=== PATIENT | male | born 1945 | race Caucasian/White ===

== ENCOUNTER 2023-06-10 17:45 | Emergency (ER) | payer MEDICARE, OTHER, SELFPAY ==
[2023-06-10 17:54] VITALS: BP 190/122; PULSE 96; RESP 20; TEMP 36.7; O2SAT 97; BMI 21.5
--- NOTE | 2023-06-10 18:00 | CT_ITS ---
The [address] [address] Patient Name: DENIZ GÓMEZ MRN: [id number] date: 1945 Sex: M Assigned Patient Location: ED.MAIN Current Patient Location: ED.MAIN Accession/Order Number: [id number] Exam Date: 06/10/2023 18:56 Report Date: 06/10/2023 19:26 At the request of: ARIK JACKSON Procedure: CT head/brain wo con EXAM: CT head/brain wo con HISTORY: fall, laceration right forehead COMPARISON: CT brain 10/06/2022 TECHNIQUE: Axial CT scans through the head were obtained without IV contrast administration. Dose reduction techniques were achieved by using: automated exposure control and/or adjustment of mA and /or kV according to patient size and/or use of iterative reconstruction technique. FINDINGS: There is no evidence of acute intracranial hemorrhage or abnormal extra-axial fluid collection. No mass effect or midline shift is seen. There is no evidence of large acute territorial infarction. There is no hydrocephalus. There is a chronic lacunar infarct in right basal ganglia. Mild enlarged ventricles and sulci, consistent with age appropriate cerebral atrophy. Patchy areas of low-attenuation are present in supratentorial white matter, likely represents chronic microvascular ischemia. There are atherosclerotic calcifications of anterior and posterior circulations. To the limit of CT, the posterior fossa appears unremarkable. No definite acute fracture is identified. Right supraorbital mild soft tissue swelling is seen. The visualized orbits show no abnormal mass. The visualized paranasal sinuses show no air-fluid level. There are mild partial opacifications of left mastoid air cells, stable since 10/06/2022. There are cerumen in bilateral external auditory canals, left greater than right. CT/CT head/brain wo con IMPRESSION: No CT evidence of acute intracranial abnormality. No acute fracture. Right supraorbital mild soft tissue swelling. Chronic lacunar infarct in right basal ganglia. Chronic microvascular ischemia and involutional changes. Partial opacifications of left mastoid air cells, stable since 10/06/2022, suggestive of mild effusion. Electronically authenticated by: MARCO UNLU Date: 06/10/2023 19:26
--- NOTE | 2023-06-10 18:01 | ED.WOUNDLAC1 ---
HPI - Wound/Laceration General Chief Complaint: Wound/Laceration Stated Complaint: FACIAL LACERATIONS FALL Time Seen by Provider: 06/10/23 17:54 Source: patient Mode of arrival: walk-in Limitations: no limitations History of Present Illness HPI narrative: 78-year-old male presents for laceration to his right eyebrow area. He was mowing the grass and somehow he tripped and hit his head on the corner of the garage door. No LOC and he doesn't complain of neck pain. No other injury was sustained and it happened just before coming into the emergency department. He was brought in by a friend. Related Data Allergies Allergy/AdvReac Type Severity Reaction Status Date / Time No Known Drug Allergies Allergy Verified 06/10/23 17:58 Review of Systems ROS Narrative A ten point review of systems is negative except as noted above. Exam Narrative Exam Narrative: Nurses note and vital signs reviewed and patient is not hypoxic. General: The patient appears well and in no apparent distress. Patient is resting comfortably on cart. Skin: Warm, dry, no pallor noted. There is no rash noted. Head: Normocephalic, irregular 2 cm laceration noted at the right eyebrow. No active bleeding. Eye: Normal conjunctiva, no drainage, EOMI. PERRL Ears, Nose, Mouth, and Throat: oral mucosa is moist. Nares patent. Cardiovascular: Regular Rate and Rhythm Respiratory: Patient is in no distress, no accessory muscle use, lungs are clear to auscultation, no wheezing, rales or rhonchi Back: non-tender, cervical spine nontender GI: soft and nontender Musculoskeletal: The patient has no evidence of calf tenderness, no pitting edema, symmetrical pulses noted bilaterally Neurological: A&O, normal speech Psychiatric: Cooperative Constitutional Vital Signs, click to edit/add: Last Vital Signs Temp 98.1 F 06/10/23 17:54 Pulse 96 H 06/10/23 17:54 Resp 20 06/10/23 17:54 BP 190/122 H 06/10/23 17:54 Pulse Ox 97 06/10/23 17:54 O2 Del Method Room Air 06/10/23 17:54 Course Vital Signs Vital signs: Vital Signs Temperature 98.1 F 06/10/23 17:54 Pulse Rate 96 H 06/10/23 17:54 Respiratory Rate 20 06/10/23 17:54 Blood Pressure 190/122 H 06/10/23 17:54 Pulse Oximetry 97 06/10/23 17:54 Oxygen Delivery Method Room Air 06/10/23 17:54 Temperature 98.1 F 06/10/23 17:54 Pulse Rate 96 H 06/10/23 17:54 Respiratory Rate 20 06/10/23 17:54 Blood Pressure 190/122 H 06/10/23 17:54 Pulse Oximetry 97 06/10/23 17:54 Oxygen Delivery Method Room Air 06/10/23 17:54 MDM - Wound/Laceration MDM Narrative Medical decision making narrative: the wound has been closed with sutures and CT brain is pending. The patient signout to Dr. Lynch. Differential Diagnosis Differential diagnosis: Likely laceration and other (intracranial hemorrhage) Discharge Plan Discharge Chief Complaint: Wound/Laceration Clinical Impression: Laceration Patient Disposition: Still a Patient Referrals: Physician,Non-Staff, MD [Primary Care Provider] - 1 week Procedures ED Laceration Laceration Laceration 1: Site: face Side (if applicable): right Size (cm): 2 Description: linear Depth: simple, single layer Anesthetic used: lidocaine 1% Anesthesia technique: local infiltration Amount (ml): 5 Pre-repair: wound explored and deep structures intact Skin layer closed with: other (Prolene) Size (cm): 5-0 Number of sutures: 5 Technique: simple, interrupted Additional comments: he tolerated the procedure well, no complications.
[2023-06-10 19:28] VITALS: BP 158/90; PULSE 88; O2SAT 96
--- NOTE | 2023-06-10 19:40 | ED_ITS ---
HPI - General Adult General Chief complaint: Wound/Laceration Stated complaint: FACIAL LACERATIONS FALL Time Seen by Provider: 06/10/23 17:54 Source: patient Mode of arrival: walk-in Limitations: no limitations History of Present Illness HPI narrative: Patient was signed out to me at shift change pending CT scan of the brain. He presents for evaluation after falling and striking his forehead against the garage while mowing the lawn. His neuro exam was normal. The forehead laceration had been closed by Dr. Jackson prior to sign out. CT scan of the brain was reviewed and is negative for acute findings. Patient was seen and evaluated by myself. He is neurologically intact. 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 She was given head trauma instructions standing. Related Data Allergies Allergy/AdvReac Type Severity Reaction Status Date / Time No Known Drug Allergies Allergy Verified 06/10/23 17:58 Exam Constitutional Vital Signs, click to edit/add: Last Vital Signs Temp 98.1 F 06/10/23 17:54 Pulse 88 06/10/23 19:28 Resp 20 06/10/23 17:54 BP 158/90 H 06/10/23 19:28 Pulse Ox 96 06/10/23 19:28 O2 Del Method Room Air 06/10/23 17:54 Course Vital Signs Vital signs: Vital Signs Temperature 98.1 F 06/10/23 17:54 Pulse Rate 96 H 06/10/23 17:54 Respiratory Rate 20 06/10/23 17:54 Blood Pressure 190/122 H 06/10/23 17:54 Pulse Oximetry 97 06/10/23 17:54 Oxygen Delivery Method Room Air 06/10/23 17:54 Temperature 98.1 F 06/10/23 17:54 Pulse Rate 88 06/10/23 19:28 Respiratory Rate 20 06/10/23 17:54 Blood Pressure 158/90 H 06/10/23 19:28 Pulse Oximetry 96 06/10/23 19:28 Oxygen Delivery Method Room Air 06/10/23 17:54 Medical Decision Making MDM Narrative Medical decision making narrative: The [address] [address] [address] Scan Report Signed Patient: DENIZ GÓMEZ MR#: [id number] : 1945 Acct:[id number] Age/Sex: 78 / M ADM Date: 06/10/23 Loc: ER Attending Dr: Ordering Physician: Jonah Jackson Date of Service: 06/10/23 Procedure(s): CT head/brain wo con Accession Number(s): [id number] cc: Physician,Non-Staff M.Marco~ The [place] [id number] Patient Name: DENIZ GÓMEZ MRN: [facility]:[id number] date: 1945 Sex: M Assigned Patient Location: ED.MAIN Current Patient Location: ED.MAIN Accession/Order Number: [id number] Exam Date: 06/10/2023 18:56 Report Date: 06/10/2023 19:26 At the request of: ARIK JACKSON Procedure: CT head/brain wo con EXAM: CT head/brain wo con HISTORY: fall, laceration right forehead COMPARISON: CT brain 10/06/2022 TECHNIQUE: Axial CT scans through the head were obtained without IV contrast administration. Dose reduction techniques were achieved by using: automated exposure control and/or adjustment of mA and /or kV according to patient size and/or use of iterative reconstruction technique. FINDINGS: There is no evidence of acute intracranial hemorrhage or abnormal extra-axial fluid collection. No mass effect or midline shift is seen. There is no evidence of large acute territorial infarction. There is no hydrocephalus. There is a chronic lacunar infarct in right basal ganglia. Mild enlarged ventricles and sulci, consistent with age appropriate cerebral atrophy. Patchy areas of low-attenuation are present in supratentorial white matter, likely represents chronic microvascular ischemia. There are atherosclerotic calcifications of anterior and posterior circulations. To the limit of CT, the posterior fossa appears unremarkable. No definite acute fracture is identified. Right supraorbital mild soft tissue swelling is seen. The visualized orbits show no abnormal mass. The visualized paranasal sinuses show no air-fluid level. There are mild partial opacifications of left mastoid air cells, stable since 10/06/2022. There are cerumen in bilateral external auditory canals, left greater than right. CT/CT head/brain wo con IMPRESSION: No CT evidence of acute intracranial abnormality. No acute fracture. Right supraorbital mild soft tissue swelling. Chronic lacunar infarct in right basal ganglia. Chronic microvascular ischemia and involutional changes. Partial opacifications of left mastoid air cells, stable since 10/06/2022, suggestive of mild effusion. Electronically authenticated by: MARCO HINDS Date: 06/10/2023 19:26 Discharge Plan Discharge Chief Complaint: Wound/Laceration Clinical Impression: Laceration, Closed head injury, Abrasion Patient Disposition: Home, Self-Care Time of Disposition Decision: 19:39 Instructions: Head Injury (ED) Stand Alone Forms: Portal Instructions Referrals: Physician,Non-Staff, MD [Primary Care Provider] - 1 week Discharge Date/Time: 06/10/23 20:07
== END 2023-06-10 20:07 | disposition home or self-care (01) ==
PROVIDERS: Emergency Provider Emergency Medicine
DX: S01.111A Laceration without foreign body of right eyelid and periocular area, initial encounter (principal); S09.8XXA Other specified injuries of head, initial encounter; W01.198A Fall on same level from slipping, tripping and stumbling with subsequent striking against other object, initial encounter; T14.8XXA Other injury of unspecified body region, initial encounter
CPT/HCPCS: 12011; 70450; 99284

== ENCOUNTER 2023-07-04 12:36 | Outpatient (OUT) | payer MEDICARE, OTHER, SELFPAY ==
[2023-07-04 13:46] LABS: Creatinine Urine Random 75.19 mg/dL (20.00-300.00); Protein Creatinine Ratio Urine 0.82; Total Protein Urine Random 61.6 mg/dL (<=11.9)
[2023-07-04 13:58] LABS: Alanine Aminotransferase 23 U/L (16-63); Albumin Globulin Ratio 0.8; Albumin Level 3.7 g/dL (3.4-5.0); Alkaline Phosphatase 59 U/L (46-116); Anion Gap 11.3; Aspartate Amino Transferase 20 U/L (15-37); BUN Creatinine Ratio 14.5; Bilirubin Total 0.5 mg/dL (0.2-1.0); Calcium 9.2 mg/dL (8.5-10.1); Chloride 101 mmol/L (98-107); Estimated GFR (African America 34 (>=60); Estimated GFR (Non-African Ame 28 (>=60); Globulin 4.5 g/dL; Glucose 148 mg/dL (74-106); Potassium 3.3 mmol/L (3.5-5.1); Sodium 140 mmol/L (136-145); Total Protein 8.2 g/dL (6.4-8.2)
[2023-07-04 14:50] LABS: Basophils Percent Auto 0.7 % (0.2-2.0); Eosinophils Absolute Auto 0.1 10^3/uL (0.0-0.7); Eosinophils Percent Auto 1.8 % (0.9-7.0); Hematocrit 39.5 % (42.0-54.0); Hemoglobin 12.7 g/dL (14.0-18.0); Immature Granulocytes Abs Auto 0.01 10^3/uL (0.00-0.03); Immature Granulocytes Pct Auto 0.2 % (0.0-0.5); Lymphocytes Percent Auto 35.7 % (20.5-60.0); Mean Corpuscular HGB Conc 32.2 g/dL (29.9-35.2); Mean Corpuscular Hemoglobin 30.2 pg (25.9-34.0); Mean Corpuscular Volume 93.8 fL (80.0-94.0); Mean Platelet Volume 11.4 fL (9.5-13.5); Monocytes Absolute Auto 0.4 10^3/uL (0.3-0.8); Monocytes Percent Auto 6.2 % (1.7-12.0); Neutrophils Absolute Auto 3.1 10^3/uL (1.4-6.5); Neutrophils Percent Auto 55.4 % (43.0-75.0); Platelet Count 236 10^3/uL (150-450); Red Blood Count 4.21 10^6/uL (4.70-6.10); Red Cell Distribution Width 14.1 % (11.0-15.0); White Blood Count 5.7 10^3/uL (4.0-11.0)
[2023-07-04 15:47] LABS: Prostate Specific Antigen Scrn 3.74 ng/mL (<=4.00)
[2023-07-04 16:23] LABS: Bilirubin Urine NEGATIVE (NEGATIVE); Blood Urine NEGATIVE (NEGATIVE); Clarity Urine CLEAR (CLEAR); Color Urine LT. YELLOW (YELLOW); Glucose Urine UA NEGATIVE (NEGATIVE); Ketones Urine NEGATIVE (NEGATIVE); Leukocyte Esterase Urine NEGATIVE (NEGATIVE); Nitrite Urine NEGATIVE (NEGATIVE); Protein Urine 30 mg/dL (NEG/TRACE); Specific Gravity Urine 1.015 (1.005-1.025); Urobilinogen Urine 0.2 EU/dL (0.2-1.0); pH Urine 6.5 (5.0-9.0)
[2023-07-04 16:35] LABS: Bacteria Urine NONE SEEN #/HPF (NONE SEEN); Cast Seen? NONE SEEN #/LPF (NONE SEEN); Crystals Seen? None Seen #/HPF (None Seen); Mucus Urine NONE SEEN (NONE SEEN); RBC Urine NONE SEEN #/HPF (0-2); Squamous Epithelial Cell Urine NONE SEEN #/LPF (NONE/RARE); WBC Urine 0-2 #/HPF (NONE SEEN)
== END 2023-07-04 12:37 | disposition home or self-care (01) ==
LOC: LAB 12:38
PROVIDERS: PCP Internal Medicine; Visit Provider Internal Medicine
DX: I12.9 Hypertensive chronic kidney disease with stage 1 through stage 4 chronic kidney disease, or unspecified chronic kidney disease (principal); N18.31 Chronic kidney disease, stage 3a; R53.83 Other fatigue; R39.11 Hesitancy of micturition; Z12.5 Encounter for screening for malignant neoplasm of prostate
CPT/HCPCS: 36415; 80053; 81001; 82570; 84156; 85025; G0103

== ENCOUNTER 2023-10-15 09:32 | Outpatient (OUT) | payer MEDICARE, OTHER, SELFPAY ==
--- NOTE | 2023-10-15 09:36 | US_ITS ---
The [address] [address] Patient Name: DENIZ GÓMEZ MRN: [id number] date: 1945 Sex: M Assigned Patient Location: US Current Patient Location: Accession/Order Number: [id number] Exam Date: 10/15/2023 09:45 Report Date: 10/16/2023 10:19 At the request of: BLANCHE WILSON Procedure: US renal bladder EXAM: US renal bladder HISTORY: Primary Hypertension I10 COMPARISON: None. TECHNIQUE: Ultrasound of the kidneys and bladder. FINDINGS: The right kidney measures 6.7 x 3.8 x 3.2 cm and contains a cyst in the inferior pole measuring up to 1.0 cm. The left kidney measures 9.4 x 2.6 x 4.3 cm. There is no hydronephrosis or renal calculus. The urinary bladder appears normal. Prevoid volume was 474.4 cc. Post volume was 363.2 cc. US/US renal bladder IMPRESSION: Atrophic right kidney with containing a cyst. Urinary retention.. Electronically authenticated by: KENN MORE Date: 10/16/2023 10:19
== END 2023-10-15 09:33 | disposition home or self-care (01) ==
LOC: US 09:33
PROVIDERS: PCP Internal Medicine; Visit Provider Internal Medicine
DX: N18.32 Chronic kidney disease, stage 3b (principal); I10 Essential (primary) hypertension; R33.9 Retention of urine, unspecified; N28.1 Cyst of kidney, acquired
CPT/HCPCS: 76770

== ENCOUNTER 2024-08-18 10:37 | Outpatient (OUT) | payer MEDICARE, OTHER, SELFPAY ==
--- OUTSIDE RECORDS SUMMARY | 2024-08-18 10:42 | XMS_ITS | CCD ---
Author Organization [facility] Care Team Providers Care Ic Design Engineer Name Role Phone Unavailable Primary Care Provider Unavailabl ROHITH Zamorano Attending Unavailable RUSTY SANDOVAL Admitting Unavailable SELF, REFERRED Referring Unavailable SELF, REFERRED Primary Care Unavailable OR Procedure Practitioner Unavailab GHADA Zacarias Surgeon Unavailable ROHITH SALAS Surgeon Unavailable OR Procedure Practitioner Unavailab le MARJORIE, JEFFRY S Referring Unavailable MARJORIE, JEFFRY S Referring Unavailable MARJORIE, JEFFRY S Referring Unavailable MARJORIE, JEFFRY S Referring Unavailable MARJORIE, JEFFRY S Referring Unavailable MARJORIE, JEFFRY S Referring Unavailable MARJORIE, JEFFRY S Referring Unavailable MARJORIE, JEFFRY S Referring Unavailable DR SOHAM FERNANDO Primary Care Unavailable ALLAN HANEY Admitting Unavailable ALLAN HANEY Attending Unavailable ALFREDA, DR DIOR Mosher Consulting Unavailable ALLAN HANEY Consulting Unavailable JASPAL GARCÍA Consulting Unavailable JANICE WOODS Consulting Unavailable Floyd Rubi Unavailable Thu Figueroa Unavailable DO Floyd Rubi Attending Provider NO FAMILY, PHYSICIAN Primary Care Provider Unava ilable Floyd Rubi Attending Unavailable Floyd Rubi Admitting Unavailable NO FAMILY, PHYSICIAN Primary Care Unavailable Bonita Ni Unavailable Soham Fernando Unavailable NONE, XXXX Primary Care Physician Unavailab ANDREA Ferrera Attending Unavailab ceasar Allergies Allergy Classification Reported Allergen(s) Allergy Type Date of Onset Reaction(s) Facility (1 source) No Known Medication Allergies; Translations: [No Known Medication Allergies] Propensity to adverse reactions (disorder) [facility] Repository Medications Current Medications Medication Drug Class(es) Dates Sig (Normalized) Sig (Original) Centrum (2 sources) Start: 11-15-2020 Centrum Oral, Daily Start Date: 11/15/20 Status: Ordered ciprofloxacin 500 mg oral tablet (1 source) Quinolone Antimicrobial Start: 12-10-2023 Cipro 500 mg Tab See Instructions, Take 1 tab day prior to procedure and 1 tab day of procdure - afterwards, # 2 tab(s), Refills(s) 0, Pharmacy: [facility] [id number], 177, cm, 12/03/23 15:04:00 EST, Height/Length Dosing, 66.5, kg, 12/03/23 15:04:00 EST, Weight Dosing Start Date: 12/10/23 Status: Ordered cloNIDine hydrochloride 0.1 mg oral tablet (10 sources) Central alpha-2 Adrenergic Agonist Start: 05-04-2024 take 0.1 mg by mouth twice daily Clonidine Hcl Active 0.1 MG PO Twice daily 60 May 04, 2024 1:51pm Start: 12-03-2023 End: 05-04-2024 take 0.1 mg by mouth once daily at bedtime Clonidine Hcl Discontinued 0.1 MG PO Daily at bedtime February 03, 2024 12:00am May 04, 2024 1:51pm Start: 10-10-2023 take 1 tablet by key th every twelve hours cloNIDine HCl 0.1 MG 1 tablet Orally bid for 30 days Oct, Active docusate sodium 50 mg oral capsule (10 sources) Start: 11-17-2020 Docusate Sodiu m 50MG Docusate Sodium( 50MG Oral 2 three times daily ) Active -Hx Entry Oral three times daily for 0 *Pick strength-form from [employer] for eRX* Nov, Not-Taking/PRN ferrous fumarate 325 mg oral tablet (2 sources) Start: 11-15-2020 take 1 tablet by mouth once daily ferrous fumarate 325 mg oral tablet 325 mg = 1 tab(s), Oral, Daily Start Date: 11/15/20 Status: Ordered tamsulosin hydrochloride 0.4 mg oral capsule (15 sources) alpha-Adrenerg ic Jasen Start: 12-03-2023 End: 11-27-2024 take 2 capsules by mouth once daily tamsulosin 0.4 mg Cap 0.8 mg = 2 cap(s), Oral, Daily, X 90 day(s), # 180 cap(s), Refills(s) 3, Pharmacy: [facility]/pharmacy #[id number], 177, cm, 12/03/23 15:04:00 EST, Height/Length Dosing, 66.5, kg, 12/03/23 15:04:00 EST, Weight Dosing Start Date: 12/03/23 Stop Date: 11/27/24 Status: Ordered Start: 12-04-2020 End: 05-04-2024 take 0.4 mg by mouth once daily at bedtime Tamsulosin Active 0.4 MG PO Daily at bedtime May 04, 2024 1:50pm Completed/Discontinued Medications Medication Drug Class(es) Dates Sig (Normalized) Sig (Original) Acetaminophen (12 sources) Tylenol Not-Taki ng/PRN Tylenol Not-Taki ng Tylenol Active amLODIPine 10 mg oral tablet (17 sources) Dihydropyridine Calcium Channel Jasen Start: 12-04-2020 End: 05-04-2024 take 10 mg by mouth once daily Amlodipine Discontinued 10 MG PO Daily 2024 12:00am January 21, 2024 10:05pm Start: 11-15-2020 take 1 tablet by key th once daily amLODIPine 5 mg Tab 5 mg = 1 tab(s), Oral, Daily Start Date: 11/15/20 Status: Ordered Ferrex 150 150MG (10 sources) Start: 12-29-2020 Ferrex 150 150 MG Ferrex 150 150MG, 1 (one) Capsule daily # 30, 12/29/2020, Ref. x2. Active Oral daily for 30 *Pick strength-form from [employer] for eRX* Dec, Not-Taking/PRN Start: 12-29-2020 Ferrex 150 150 MG Ferrex 150 150MG, 1 (one) Capsule daily # 30, 12/29/2020, Ref. x2. Active Oral daily for 30 *Pick strength-form from [employer] for eRX* Dec, Not-Taking sodium bicarbonate 325 mg oral tablet (10 sources) Start: 12-04-2020 take 1 tablet by mouth twice daily as needed Sodium Bicarbonate 325MG Sodium Bicarbonate 325MG, 2 (two) Tablet two times daily # 120, 12/04/2020, Ref. x11. Active Oral two times daily for 30 *Pick strength-form from [employer] for eRX* Dec, Not-Taking/PRN Problems Active Problems Problem Classification Problem Date Documented Date Episodic/Chronic Acute and unspecified renal failure (2 sources) Acute renal failure syndrome 01-18-2021 Episodic Acute and unspecified renal failure (7 sources) Acute injury of kidney; Translations: [TJ (acute kidney injury)] Onset: 09-10-2020 09-10-2020 Acute posthemorrhagic anemia (10 sources) Acute posthemorrhagic anemia; Translations: [Acute posthemorrhagic anemia] Episodic Chronic kidney disease (20 sources) Chronic kidney disease stage 4; Translations: [Chronic kidney disease, stage 4 (severe)] 2024 Chronic Chronic obstructive pulmonary disease and bronchiectasis (17 sources) Simple chronic bronchitis; Translations: [Simple chronic bronchitis] Chronic Deficiency and other anemia (2 sources) Anemia 11-15-2020 Episodic Disorders of teeth and jaw (1 source) Periapical abscess without sinus; Translations: [PERIAPICAL ABSCESS WITHOUT SINUS] Onset: 10-09-2022 Episodic E Codes: Fall (1 source) Fall on same level from slipping, tripping and stumbling with subsequent striking against other object, initial encounter; Translations: [FALL SAME LVL SLIP STRK OTH OBJ INT] Onset: 10-09-2022 Episodic Essential hypertension (20 sources) Essential hypertension; Translations: [Essential (primary) hypertension] Chronic Fracture of upper limb (2 sources) Unspecified fracture of the lower end of right radius, initial encounter for closed fracture; Translations: [UNS FX LOW RT RADIUS INIT CLOS FX] Onset: 10-09-2022 Episodic Genitourinary symptoms and ill-defined conditions (20 sources) Delay when starting to pass urine; Translations: [Hesitancy of micturition] Onset: 12-03-2023 Episodic Hyperplasia of prostate (20 sources) Lower urinary tract symptoms due to benign prostatic hypertrophy; Translations: [Benign prostatic hyperplasia with lower urinary tract symptoms] Onset: 12-03-2023 Chronic Immunizations and screening for infectious disease (1 source) Encounter for immunization; Translations: [ENCOUNTER FOR IMMUNIZATION] Onset: 10-09-2022 Episodic Intracranial injury (11 sources) Concussion without loss of consciousness, initial encounter; Translations: [Concussion with no loss of consciousness] Onset: 10-09-2022 Episodic Malaise and fatigue (1 source) Other fatigue Episodic Open wounds of head; neck; and trunk (4 sources) Laceration without foreign body of lip, initial encounter; Translations: [LACERATION W/O FB LIP INITIAL ENC] Onset: 10-06-2022 Episodic Osteoarthritis (13 sources) Osteoarthritis of joint of right wrist; Translations: [Primary osteoarthritis, right wrist] Chronic Other aftercare (1 source) Other fpc (current) drug therapy; Translations: [OTH ROTOR PLATE WASHER CURRENT DRUG THERAPY] Onset: 10-09-2022 Episodic Other aftercare (2 sources) Encounter for removal of sutures Episodic Other circulatory disease (1 source) Elevated blood-pressure reading, without diagnosis of hypertension Episodic Other diseases of kidney and ureters (1 source) Acquired renal cyst without neoplastic change; Translations: [Cyst of kidney, acquired] Onset: 12-03-2023 Episodic Other diseases of kidney and ureters (2 sources) Bilateral hydronephrosis 01-18-2021 Episodic Other diseases of kidney and ureters (2 sources) Cyst of kidney 12-03-2023 Episodic Other ear and sense organ disorders (1 source) Impacted cerumen; Translations: [Impacted cerumen, unspecified ear] 02-03-2024 Episodic Other hereditary and degenerative nervous system conditions (11 sources) Impaired cognition; Translations: [Mild cognitive impairment, so stated] 2024 Chronic Other hereditary and degenerative nervous system conditions (6 sources) Mild cognitive impairment, so stated; Translations: [Mild cognitive impairment, so stated] Chronic Other screening for suspected conditions (not mental disorders or infectious disease) (1 source) Encounter for screening for malignant neoplasm of prostate Episodic Screening and history of mental health and substance abuse codes (1 source) Personal history of nicotine dependence; Translations: [PERSONAL HISTORY OF NICOTINE DEPEND] Onset: 10-09-2022 Episodic Substance-related disorders (15 sources) Tobacco dependence in remission; Translations: [Nicotine dependence, cigarettes, in remission] Chronic Superficial injury; contusion (1 source) Contusion of other part of head, initial encounter; Translations: [CONTUS OTH PRT HEAD INITIAL ENCNTR] Onset: 10-09-2022 Episodic Syncope (1 source) Syncope and collapse Episodic Unclassified (1 source) Other fractures of lower end of right radius, subsequent encounter for closed fracture with routine healing; Translations: [Other fractures of lower end of right radius, subsequent encounter for closed fracture with routine healing] Onset: 11-01-2022 Unclassified (2 sources) Finding of sensation of bladder 12-03-2023 Viral infection (10 sources) Disease caused by 2019-nCoV; Translations: [COVID-19] Past or Other Problems Problem Classification Problem Date Documented Da te Episodic/Chronic Chronic kidney disease (4 sources) Chronic kidney disease; Translations: [Stage 3a chronic kidney disease N18.31] Results Test Name Value Interpretation Reference Range Facility Urology Office/Clinic Noteon 12-05-2023 Urology Office/Clinic Note Chief Complaint urinary retention, feeling of incomplete bladder emptying, BPH with LUTS HPI Staff Deniz is a 78 y.o. male here for urinary retention. Previous Dx: acute renal failure, acute urinary retention, bilateral hydronephrosis, BPH w/ elevated PSA, enlarged prostate, urinary retention. No urological procedures. Referred by Soham Fernando. BUN 33.0 & CRE 2.28 done on 07/04/23. Current PSA 3.74 done on 07/04/23. UA done on 07/04/23 was negative. Renal bladder US done on 10/16/23. Pt states he does not know why he is here today and does not remember Dr. Fernando telling him that he needed to be seen in our office. States that he has no urinary issues. Dysuria: no Incomplete bladder emptying: pt states he has no trouble emptying Hematuria: no Frequency: no Urgency: no Nocturia: pt states 1x but caregiver states 3-4x Stream: good steady stream Leaking: no Post void dripping: no Wearing pads/ Depends: no Urge incontinence: no Stress incontinence: no Incontinence without Sensory Awareness: no Abdominal pain: no Flank pain: no Sexual complaints: no History of Present Illness staff HPI reviewed and agree. Review of Systems PHQ Score Initial Depression Screen Score: 0 SCORE no fever, chills, malaise, myalgia. no rash/lesions. no chest pain, palpitations, or SOB. no abdominal pain, nausea, vomiting. no unilateral calf swelling, redness, pain Physical Exam Vitals & Measurements HR: 77(Peripheral) RR: 16 BP: 136/83 HT: 70 in HT: 177 cm WT: 66.5 kg WT: 146.3 lb BMI: 21.23 General: nontoxic, NAD Mouth: moist mucosa Lungs: normal respiratory effort Cardio: regular rate, good distal perfusion Abdomen: nondistended, no suprapubic distention or tenderness, no CVA tenderness Neurologic: Grossly normal Skin: No rashes or suspicious lesions Assessment/Plan Deniz is a 78 yo male re-referred by Dr. Fernando for BPH and urinary retention. Last saw Dr. Levy 04/17/21. Pt here with friend today - takes care of pt's appts/transportation but has IBS and states she may have to cancel if experiencing bothersome sxs. 1. Feeling of incomplete bladder emptying (R39.14: Feeling of incomplete bladder emptying) Hx of urinary retention requiring Bernal placement in the remote past. PVR (cc): 04/17/21 - 229 12/03/23 - 475 Renal fxn 07/04/23 - BUN 33, Cr 2.28 (has CKD, follows w/ nephrology) Bladder/Renal US 10/16/23 [facility] - No hydro or stones. PVR 363mL. Discussed PVRs w/ pt. Advised him PVRs are elevated and indicate bladder dysfunction. This is likely contributing to his worsening kidney function. Educated pt on possible renal failure if no intervention is done. Discussed options such as chronic bernal catheter placement vs CIC. Also discussed cystoscopy evaluation to determine if prostate has regrown since Rezum and uros to assess bladder function. Pt refusing cath or CIC at this time. I did tell him if he changes his mind at any time he can call office. He is willing to proceed w cysto/uros. -Will schedule cystoscopy and urodynamics. The risks and benefits have been discussed. The risks include bleeding, infection, and irritation of the bladder and urinary channel, among others. The patient, after being informed of procedural details and after questions have been answered, wishes to proceed. Full informed consent has been obtained. Will order Local anesthesia. 2. BPH with urinary obstruction (N40.1: Benign prostatic hyperplasia with lower urinary tract symptoms) S/p Rezum 03/08/[address] Levy. IPSS 1, QoL 0. Dr. Fernando started pt on Tamsulosin 0.4mg qd in October 2023. UA today negative for infection. Discussed increasing dosage of Tamsulosin given pt is not emptying well. Pt agrees. PSA 09/11/20 - 7.2 07/04/23 - 3.74 -Increase Tamsulosin 0.4mg qd to bid. New rx sent. 3. Renal cyst (N28.1: Cyst of kidney, acquired) Bladder/Renal US 10/16/23 [facility] - 9.4 x 2.6 x 4.3 cm RIP cyst. -No indication for monitoring given cysts are simple Follow-up With When Contact Information AGNES ROJO PA-C, URL [address] [place] [place] [id number] Additional Instructions: sched cysto/uros Patient Education Urodynamic Testing Cystoscopy Acute Urinary Retention, Male Documentation recorded by the scribclifford Nash accurately reflects the services(s) I performed and decisions made by me. Authenticated by Agnes Rojo PA-C on 12/05/2023 09:19:14. IBrianne, personally scribed for Agnes Rojo PA-C on 12/03/2023 15:49:13. . 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 Normal [facility] Comment on above: Result Comment: Elec tronically Signed By: AGNES ROJO PA-C\.br\Date and Time Signed: 12/05/23 09:19 EST\.br\Electronically Co-Signed By: Brianne Nashbr\Date and Time Co-Signed: 12/03/23 15:50 EST Physician Referralon 024 Physician Referral [id number] TIFF Normal [facility] Screenson 12-04-2023 Screens [id number] IFF Normal [facility] Ambulatory Visit Summaryon 0 12-03-2023 Ambulatory Visit Summary DENIZ GOMEZ:1945 Visit Date:12/03/2023 Ambulatory Visit Instructions Your Diagnosis Feeling of incomplete bladder emptying BPH with urinary obstruction Renal cyst Your Care Team Attending Physician - AGNES ROJO PA-C Primary Care Physician - NONE, XXXX This Is Your Medications List tamsulosin (tamsulosin 0.4 mg Cap) Contact prescribing physician if questions or concerns amlodipine (amLODIPine 5 mg Tab) clonidine (cloNIDine 0.1 mg tab) ferrous fumarate (ferrous fumarate 325 mg oral tablet) multivitamin with minerals (Centrum) Procedures Performed Transurethral water vapor ablation of prostate (03/08/2021), CE - Cataract extraction. Discharge Vitals Heart Rate (Peripheral) 77 Respiratory Rate 16 Blood Pressure 136/83 Height 177 cm Height 70 in Weight 66.5 kg Weight 146.3 lb BMI 21.23 What to do next You Need to Schedule the Following Appointments Follow Up with AGNES ROJO PA-C, DAMI When: Comments: sched cysto/uros Where: [address] [place] [address] [phone] Medications What How Much When Instructions Changed tamsulosin (tamsulosin 0.4 mg Cap) 2 Capsules By Mouth Every day Duration: 90 Days Pickup at [facility]/pharmacy #[id number] Unchanged amlodipine (amLODIPine 5 mg Tab) 1 Tablets By Mouth Every day Contact prescribing physician if questions or concerns Unchanged clonidine (cloNIDine 0.1 mg tab) Contact prescribing physician if questions or concerns Unchanged ferrous fumarate (ferrous fumarate 325 mg oral tablet) 1 Tablets By Mouth Every day Contact prescribing physician if questions or concerns Unchanged multivitamin with minerals (Centrum) By Mouth Every day Contact prescribing physician if questions or concerns Pharmacy Information [facility]/pharmacy #[id number]: [address], [place] [phone] Allergies No Known Medication Allergies Problems Ongoing - Any problem that you are currently receiving treatment for. Acute renal failure Acute urinary retention Anemia Bilateral hydronephrosis BPH with elevated PSA BPH with urinary obstruction Enlarged prostate Feeling of incomplete bladder emptying Hypertension Renal cyst Urinary retention Patient Survey You may receive a survey via text or e-mail asking about your office visit. Please share your experience with us by completing your survey. We appreciate your feedback and thank you for choosing us for your care. Education Materials Urodynamic Testing Urodynamic tests are done to determine how well your lower urinary tract is working. The lower urinary tract includes your bladder and the part of your body that drains urine from the bladder (urethra). When your kidneys filter your blood, urine is stored in your bladder until you feel the urge to urinate. Urination requires coordination between the nerves and muscles of your bladder and urethra. When your lower urinary tract is working well, you should be able to: ? Start urinating when your bladder is full. ? Empty your bladder completely. ? Control the flow of your urine. Why do I need urodynamic testing? You may need urodynamic testing to help find the cause of any of these problems: ? Leaking urine (incontinence). ? Problems starting or stopping your urine flow. ? Frequent or painful urination. ? Frequent urinary tract infections. ? Being unable to empty your bladder completely. ? Having strong urges to pass urine (urgency). ? Having a weak flow of urine. What are the risks? Generally, these tests are safe. However, some of the tests have risks, including: ? Discomfort. ? Frequent urge to urinate. ? Bleeding. ? Infection. ? Allergic reactions to medicines or dyes (contrast material). What happens before the test? ? Ask your health care provider about changing or stopping your regular medicines. This is especially important if you are taking diabetes medicines or blood thinners. ? You may be asked to avoid urinating before coming to the test so that you arrive with a full bladder. ? Tell a health care provider about: ? Any allergies you have. ? All medicines you are taking, including vitamins, herbs, eye drops, creams, and [id number] medicines. ? Whether you are or may be . What happens during the test? You may have various urodynamic tests. The tests may be done separately or may all be done during one visit. You may be given an antibiotic medicine before or after testing to help prevent infection. The types of tests that may be done include: Uroflowmetry This test measures how much urine you pass and how long it takes to pass. ? You will urinate into a certain type of toilet or device (flowmeter). ? The device will measure the volume and the time of your urine flow. ? These measurements will be sent to a computer that create (more content not included)... Normal [facility] Patient Educationon 12-03-19 Patient Education Urology Urodynamic Testing Urodynamic tests are done to determine how well your lower urinary tract is working. The lower urinary tract includes your bladder and the part of your body that drains urine from the bladder (urethra). When your kidneys filter your blood, urine is stored in your bladder until you feel the urge to urinate. Urination requires coordination between the nerves and muscles of your bladder and urethra. When your lower urinary tract is working well, you should be able to: ? Start urinating when your bladder is full. ? Empty your bladder completely. ? Control the flow of your urine. Why do I need urodynamic testing? You may need urodynamic testing to help find the cause of any of these problems: ? Leaking urine (incontinence). ? Problems starting or stopping your urine flow. ? Frequent or painful urination. ? Frequent urinary tract infections. ? Being unable to empty your bladder completely. ? Having strong urges to pass urine (urgency). ? Having a weak flow of urine. What are the risks? Generally, these tests are safe. However, some of the tests have risks, including: ? Discomfort. ? Frequent urge to urinate. ? Bleeding. ? Infection. ? Allergic reactions to medicines or dyes (contrast material). What happens before the test? ? Ask your health care provider about changing or stopping your regular medicines. This is especially important if you are taking diabetes medicines or blood thinners. ? You may be asked to avoid urinating before coming to the test so that you arrive with a full bladder. ? Tell a health care provider about: ? Any allergies you have. ? All medicines you are taking, including vitamins, herbs, eye drops, creams, and clgd-rxr-[id number] medicines. ? Whether you are or may be . What happens during the test? You may have various urodynamic tests. The tests may be done separately or may all be done during one visit. You may be given an antibiotic medicine before or after testing to help prevent infection. The types of tests that may be done include: Uroflowmetry This test measures how much urine you pass and how long it takes to pass. ? You will urinate into a certain type of toilet or device (flowmeter). ? The device will measure the volume and the time of your urine flow. ? These measurements will be sent to a computer that creates a graph of your urine flow. Postvoid residual measurement This test measures how much urine is left in your bladder after you urinate. ? The test may be done with ultrasound. In this method, sound waves and a computer will be used to create an image of your bladder. ? The test can also be done by inserting a thin, flexible tube (catheter) into your bladder after you urinate. The remaining urine will be removed through the catheter so it can be measured. ? Remaining urine will be measured in milliliters (mL). If you have more than 100 mL left in your bladder after you urinate, your bladder is not emptying as it should. Cystometric testing This test uses a type of bladder catheter that can measure pressure. ? You may be given a medicine to numb the area (local anesthetic). ? The area around the opening of your urethra will be cleaned. ? A urinary catheter will be passed through your urethra into your bladder and used to empty your bladder completely. ? A measuring catheter will be placed, and your bladder will be filled with warm, germ-free (sterile) water. ? Pressure measurements will be taken: ? As your bladder fills. ? When you feel the need to urinate. ? As your bladder is emptied. ? You may be asked to cough or bear down to check for leakage. ? In some cases, your bladder may be filled with a material that shows up on X-rays (contrast material) so that X-ray pictures can be taken during the test. Electromyogram This test measures the electrical activity of the nerves and muscles of your bladder and the opening of your urethra. ? Sticky patches (electrodes) will be placed near your rectum and urethra to measure electrical activity. ? The measurements will show how well your nerves are communicating with your muscles. What can I expect after the test? ? You should be able to go home right away and do your usual activities. ? You may be told to drink a glass of water every 30 minutes for the first 2 hours after testing. ? Taking a warm bath or using warm, wet cloths (warm compresses) may relieve any discomfort near your urethra. What do the results mean? Talk with your health care provider about what your results mean. Some common causes for abnormal results from urodynamic tests include: ? Enlarged prostate in men. ? Overactive bladder. ? Urinary tract infection. ? Nervous system diseases. ? Spinal cord damage. Questions to ask your health care provider Ask your health care provider, or the department that is doing the test: ? When will my results be (more content not included)... Normal [facility] Comprehensive Metabolic Pane angeline 07-04-2023 Albumin [Mass/Vol] 3.275589 g/dL Normal 3.4-5.0 g/dL [employer] Other ALP [Catalytic activity/Vol] 59 U/L Normal 46-116 U/L [employer] Other ALT [Catalytic activity/Vol] 23 U/L Normal 16-63 U/L [employer] Other Anion gap [Moles/Vol] 11.3 mmol/L No rt [employer] Other AST [Catalytic activity/Vol] 20 U/L Normal 15-37 U/L [employer] Other Bilirubin [Mass/Vol] 0.9072182 mg/dL Normal 0.2- 1.0 mg/dL [employer] Other Calcium [Mass/Vol] 9.8306612 mg/dL Normal 8.5-10 .1 mg/dL [employer] Other Chloride [Moles/Vol] 101 mmol/L Normal 98-107 mmol/L [employer] Other CO2 [Moles/Vol] 31.74429552 mmol/L Normal 21.0-3 2.0 mmol/L [employer] Other Creatinine [Mass/Vol] 2.86492145 mg/dL High 0. 70-1.30 mg/dL [employer] Other Glucose [Mass/Vol] 148 mg/dL High 74-106 mg/dL [employer] Other Potassium [Moles/Vol] 3.17653421 mmol/L Low 3 .5-5.1 mmol/L [employer] Other Protein [Mass/Vol] 8.616102 g/dL Normal 6.4-8.2 g/dL [employer] Other Sodium [Moles/Vol] 140 mmol/L Normal 136-145 mmol/L [employer] Other Urea nitrogen [Mass/Vol] 33.4069209 mg/dL High 7.0-18.0 mg/dL [employer] Other Urea nitrogen/Creatinine [Mass ratio] 14.5 mg/mg [employer] Other Comprehensive Metabolic Panel 4.5 g/dL [employer] Other Comprehensive Metabolic Panel 0.8 [employer] Other Comprehensive Metabolic Panel see note [employer] Other Comprehensive Metabolic Panel 28 Low >=60 [employer] Other Comprehensive Metabolic Panel 34 Low >=60 [employer] Other PSA SCREENINGon 07-04-2023 PSA SCREENING 3.74 ng/mL <=4.00 ng/mL [employer] Other UA RANDOM W/MICROSCOPICon Clarity (U) CLEAR CLEAR [employer] Other Color (U) LT. YELLOW YELLOW [employer] Other Ketones Ql (U) Negative NEGATIVE mg/dL [employer] Other Leukocyte esterase Test strip Ql (U) Negative NEGATIVE [employer] Other pH (U) 6.5 [pH] 5.0-9.0 [employer] Other UA RANDOM W/MICROSCOPIC 0-2 #/HPF Abnormal NONE SEEN #/HPF [employer] Other UA RANDOM W/MICROSCOPIC NONE SEEN #/HPF None Seen #/HPF [employer] Other UA RANDOM W/MICROSCOPIC 1.015 1.005-1.025 [employer] Other UA RANDOM W/MICROSCOPIC 30 mg/dL Abnormal NEG/TRACE mg/dL [employer] Other UA RANDOM W/MICROSCOPIC Negative NEGATIVE [employer] Other UA RANDOM W/MICROSCOPIC 0.2 EU/dL 0.2-1.0 EU/dL [employer] Other UA RANDOM W/MICROSCOPIC NONE SEEN NONE SEEN [employer] Other UA RANDOM W/MICROSCOPIC NONE SEEN #/LPF NONE SEEN #/LPF [employer] Other XR wrist RT 2Von 11-01-2022 XR wrist RT 2V [facility] [place] [address] [place] [address] XRay Report Signed Patient: Deniz Gomez MR#: [id number] : 1945 Acct:[id number] Age/Sex: 77 / M ADM Date: 11/01/22 Loc: [facility] [place] Room: Type: [facility] Attending Dr: Floyd Rubi DO Copies to: Floyd Rubi DO Ordering Provider: Floyd Rubi DO Date of Service: 11/01/22 XR/XR wrist RT 2V: Other closed fracture of distal end of right radius with rou RIGHT WRIST - 2 views CLINICAL HISTORY: Follow-up distal radius fracture COMPARISON: Right wrist 10/06/2022 FINDINGS: Residual deformity is seen involving a presumed healed distal radius fracture. Distal ulna appears grossly intact. Presumed remote triquetral fracture. Degenerative changes involving the CMC joint of the thumb and scaphotrapezial joint similar to the prior study. No focal soft tissue abnormality. XR/XR wrist RT 2V IMPRESSION: NO DEFINITIVE FRACTURE LINE IS SEEN INVOLVING THE DISTAL RADIUS. NO DEFINITE ACUTE BONY PROCESS IS SEEN. Impression dictated by: Jeffry Waterman Jr., D.OLane11/01/2022 1:36 PM Dictation Location: [place] [address] Transcribed By: [facility] 11/01/22 1336 Dictated By: Jeffry Waterman Jr, DO 11/01/22 1330 Signed By: 11/01/22 1336 Normal [facility] XR WRIST RT MIN 3 Von 2021 XR WRIST RT MIN 3 V PLAIN FILM OF WRIST RIGHT HISTORY: wrist pain. TECHNIQUE: 3 views of the wrist submitted for review. COMPARISON: None. FINDINGS: Nondisplaced hairline lucency is seen through the distal shaft of the right radius.. Bone mineralization is decreased. Degenerative changes are present. Soft tissues are diffusely edematous. Joint spaces are degenerative. There is no radiopaque foreign body. IMPRESSION: Nondisplaced hairline fracture seen through the distal shaft of the right radius. Electronically authenticated by: JANICE WOODS Date: 2022-10-06 22:44 Normal [facility] CBC AUTO DIFFon 10-06-2022 BASO # 0.0 103/ul Normal 0.0-0.1 [facility] Comment on above: Performed By: #### C BC #### [facility] [address] [place] [address] Dr. Goran Cortes Basophils/100 WBC (Bld) 0.2 % Normal 0.2-2.0 [facility] Comment on above: Performed By: #### C BC #### [facility] [address] [address] [address] Goran Cortes EO # 0.0 103/ul Normal 0.0-0.7 [facility] Comment on above: Performed By: #### C BC #### [facility] [address] [address] [address] Goran Cortes Eosinophils/100 WBC (Bld) 0.1 % Critically low 0.9-7.0 [facility] Comment on above: Performed By: #### C BC #### [facility] [address] [address] [address] Goran Cortes Erythrocyte distribution width (RBC) [Ratio] 13.8 % Normal 11.0-15.0 [facility] Comment on above: Performed By: #### C BC #### [facility] [address] [place] [address] Dr. Goran Cortes Hematocrit (Bld) [Volume fraction] 38.4 % Critically low 42.0-54.0 [facility] Comment on above: Performed By: #### C BC #### [facility] [address] [address] [address] Goran Cortes Hemoglobin (Bld) [Mass/Vol] 12.8 g/dL Critically low 14.0-18.0 [facility] Comment on above: Performed By: #### C BC #### [facility] [address] [address] [address] Goran Cortes IG # 0.06 10e3/ul Critically high 0.00-0.03 [facility] Comment on above: Performed By: #### C BC #### [facility] [address] [address] [address] Goran Cortes IG % 0.4 % Normal 0.0-0.5 [facility] Comment on above: Performed By: #### C BC #### [facility] [address] [address] [address] Goran Cortes LYMPH # 1.7 103/ul Normal 1.2-3.8 [facility] Comment on above: Performed By: #### C BC #### [facility] [address] [address] [address] Goran Cortes Lymphocytes/100 WBC (Bld) 11.6 % Critically low 20.5-60.0 [facility] Comment on above: Performed By: #### C BC #### [facility] [address] [address] [address] Goran Cortes MANUAL DIFF REQ NO Normal [facility] Comment on above: Performed By: #### C BC #### [facility] [address] [address] [address] Goran Cortes MCH (RBC) [Entitic mass] 31.2 pg Normal 25.9-34.0 [facility] Comment on above: Performed By: #### C BC #### [facility] [address] [address] [address] Goran Cortes MCHC (RBC) [Mass/Vol] 33.3 g/dL Normal 29.9-35.2 [facility] Comment on above: Performed By: #### C BC #### [facility] [address] [address] [address] Goran Cortes MCV (RBC) [Entitic vol] 93.7 fL Normal 80.0-94.0 [facility] Comment on above: Performed By: #### C BC #### [facility] [address] [address] [address] Goran Cortes MONO # 0.9 103/ul Critically high 0.3-0.[address] [facility] Comment on above: Performed By: #### C BC #### [facility] [address] [address] [address] Goran Cortes Monocytes/100 WBC (Bld) 6.2 % Normal 1.7-12.0 [facility] Comment on above: Performed By: #### C BC #### [facility] [address] [place] [address] Dr. Goran Cortes NEUT # 11.9 103/ul Critically high 1.4-6.5 [facility] Comment on above: Performed By: #### C BC #### [facility] [address] [place] [address] Dr. Goran Cortes Neutrophils/100 WBC (Bld) 81.5 % Critically high 43.0-75.0 [facility] Comment on above: Performed By: #### C BC #### [facility] [address] [place] [address] Dr. Goran Cortes Platelet mean volume (Bld) [Entitic vol] 11.2 fL Normal 9.5-13.5 [facility] Comment on above: Performed By: #### C BC #### [facility] [address] [place] [address] Dr. Goran Cortes PLT 212 103/ul Normal 150-450 [facility] Comment on above: Performed By: #### C BC #### [facility] [address] [place] [address] Dr. Goran Cortes RBC 4.10 106/ul Critically low 4.70-6.[address] [facility] Comment on above: Performed By: #### C BC #### [facility] [address] [place], [place] [address] Dr. Goran Cortes WBC 14.6 103/ul Critically high 4.0-11.0 [facility] Comment on above: Performed By: #### C BC #### [facility] [address] [place], [place] [address] CSPINE WO CONon 2 CT CSPINE WO CON EXAMINATION: CT CSPI NE WO CON HISTORY: Pain , fall, facial abrasions COMPARISON: No relevant comparison available. TECHNIQUE: Axial, Coronal, and Sagittal images were created without IV contrast. Dose reduction techniques were achieved by using automated exposure control and/or adjustment of mA and/or kV according to patient size and/or use of iterative reconstruction technique. FINDINGS: VERTEBRAL BODIES: Marked reversal of normal lordotic curvature of lower cervical spine. Grade 1 anterior listhesis of C7 on T1. No fracture.. FACET JOINTS: Multilevel marked degenerative facet arthropathy. No fracture or disruption. CERVICAL DISCS: Moderate narrowing C4-C5, C5-C6. Marked narrowing C6-C7, C7-T1. CENTRAL CANAL: Suspect moderate narrowing throughout the cervical spine, likely marked at C6-C7. No appreciable hemorrhage. PARASPINAL AREA: No visible mass. IMPRESSION: 1. No appreciable acute abnormality. 2. 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 Electronically authenticated by: DIOR GANT Date: 2022-10-06 21:39 Normal [facility] CT FACIAL BONES WO CONon CT FACIAL BONES WO CON EXAMINATION: CT F ACIAL BONES WO CON HISTORY: UNSPECIFIED INJURY OF FACE, INITIAL ENCOUNTER ; fall COMPARISON: No relevant comparison available. TECHNIQUE: Axial, Coronal, and Sagittal CT images created without IV contrast. Dose reduction techniques were achieved by using automated exposure control and/or adjustment of mA and/or kV according to patient size and/or use of iterative reconstruction technique. FINDINGS: FACIAL BONES: No bony lesion or fracture. SINUSES: Several mucocele/fluid-filled left mastoid air cells. Unremarkable paranasal sinuses. NASAL FOSSA: No mass, fracture, or significant septal deviation. SKULL BASE: No mass or bone destruction. ORBITS: No visible mass, hematoma, edema or fracture. IMPRESSION: 1. No fracture or suspicious abnormality the facial bones. 2. No intraorbital involvement. 3. Fluid/mucus within left mastoid air cells; possible mastoiditis. Electronically authenticated by: DIOR GANT Date: 2022-10-06 21:32 Normal [facility] CT HEAD WO CONon 10-06-2022 CT HEAD WO CON CT SCAN OF THE HEAD WITHOUT CONTRAST, 10/06/2022 8:34 PM EST: COMPARISON: None CLINICAL HISTORY: Pain. Patient fell and unknown if there was a loss of consciousness. There is swelling in the left side of the face and lacerations to the right eyebrow and upper lip with abrasions to the chin, forehead and right cheek. TECHNIQUE: 3 mm axial images performed through the head without contrast. 3 mm sagittal and coronal MPR reconstructions performed. Dose reduction techniques were achieved by using automated exposure control and/or adjustment of mA and/or kV according to patient size and/or use of iterative reconstruction technique. FINDINGS: Age-related cerebral and cerebellar atrophy with associated ventricular prominence. Nonspecific periventricular white matter low attenuation, likely a sequela of small vessel disease. No acute hemorrhage, mass effect, or midline shift. Visualized the paranasal sinuses demonstrates minimal mucosal thickening in the right ethmoid air cells. Trace amount of fluid in the basal left mastoid air cells. Some cerumen seen in the external auditory canal, left much more prominent than right. Minimal edema in the right supraorbital soft tissues. IMPRESSION: 1. No acute intracranial abnormality identified. 2. Age-related atrophy with associated ventricular prominence and periventricular matter small vessel disease. 3. Prominent cerumen seen in the left and to less extent in the right auditory canal. Correlation with direct visualization recommended. 4. Minimal edema in the right supraorbital soft tissues. Electronically authenticated by: Earlene GARCÍA Date: 2022-10-06 21:31 Normal [facility] PROF CHEM 8 (BAS METB)on Anion gap [Moles/Vol] 15.7 mmol/L Normal [facility] Comment on above: Performed By: #### B MP #### [facility] [address] [place] [address] Dr. Goran Cortes Calcium [Mass/Vol] 9.5 mg/dL Normal 8.5-10.1 [facility] Comment on above: Performed By: #### B MP #### [facility] [address] [address] [address] Goran Cortes Chloride [Moles/Vol] 101 mmol/L Normal 98-107 [facility] Comment on above: Performed By: #### B MP #### [facility] [address] [address] [address] Goran Cortes CO2 [Moles/Vol] 25.6 mmol/L Normal 21.0-32.0 [facility] Comment on above: Performed By: #### B MP #### [facility] [address] [address] [address] Goran Cortes Creatinine [Mass/Vol] 2.64 mg/dL Critically high 0.70-1.30 [facility] Comment on above: Performed By: #### B MP #### [facility] [address] [address] [address] Goran Cortes EGFR-AF WALLISIAN 29 mL/min/1.73m2 Critically low >=60 [facility] Comment on above: Performed By: #### B MP #### [facility] [address] [address] [address] Goran Cortes EGFR-NON AF WALLISIAN 24 mL/min/1.73m2 Critically low >=60 [facility] Comment on above: Performed By: #### B MP #### [facility] [address] [address] [address] Goran Cortes Glucose [Mass/Vol] 177 mg/dL Critically high 74-106 [facility] Comment on above: Performed By: #### B MP #### [facility] [address] [address] [address] Goran Cortes Potassium [Moles/Vol] 3.3 mmol/L Critically low 3.5-5.1 [facility] Comment on above: Performed By: #### B MP #### [facility] [address] [address] [address] Goran Cortes Sodium [Moles/Vol] 139 mmol/L Normal 136-145 [facility] Comment on above: Performed By: #### B MP #### [facility] [address] [place], [place] [address] Dr. Goran Cortes Urea nitrogen [Mass/Vol] 34.0 mg/dL Critically high 7.0-18.0 [facility] Comment on above: Performed By: #### B MP #### [facility] [address] [place], [place] [address] Dr. Goran Cortes Urea nitrogen/Creatinine [Mass ratio] 12.9 mg/mg Normal [facility] Comment on above: Performed By: #### B MP #### [facility] [address] [place], [place] [address] Dr. Goran Cortes Hemoglobin and Hematocrit, B loodon 10-19-2020 Hematocrit (Bld) [Volume fraction] 23.9 % Low 40.7 - 50.3 % [place] Hemoglobin (Bld) [Mass/Vol] 7.5 g/dL Low 13 - 17 g/dL [place] Interpretation and review of laboratory results Abnormal [place] Hgb/Hcton 10-19-2020 Hematocrit (Bld) [Volume fraction] 23.9 % Low 40.7-50.3 [facility] Comment on above: Performed By: #### H H #### [facility] [employer] [address] [place], [place] [id number] [employer] Operator: David Tate MD Hemoglobin (Bld) [Mass/Vol] 7.5 g/dL Low 13.0-17.0 [facility] Comment on above: Performed By: #### H H #### [facility] [address] [id number] [employer] Operator: David Tate MD Hemoglobin and Hematocrit, B [facility] 10-16-2020 Hematocrit (Bld) [Volume fraction] 24.6 % Low 40.7 - 50.3 % [place] Hemoglobin (Bld) [Mass/Vol] 7.6 g/dL Low 13 - 17 g/dL [place] Interpretation and review of laboratory results Abnormal [place] Hgb/Hcton 10-16-2020 Hematocrit (Bld) [Volume fraction] 24.6 % Low 40.7-50.3 [facility] Comment on above: Performed By: #### H H #### [facility] [employer] [address] [place], [place] [id number] [employer] Operator: David Tate MD Hemoglobin (Bld) [Mass/Vol] 7.6 g/dL Low 13.0-17.0 [facility] Comment on above: Performed By: #### H H #### [facility] [employer] [address] [place] [address] [employer] Operator: David Tate MD Hemoglobin and Hematocrit, B loodon 10-13-2020 Hematocrit (Bld) [Volume fraction] 25.5 % Low 40.7 - 50.3 % [place] Hemoglobin (Bld) [Mass/Vol] 8.0 g/dL Low 13 - 17 g/dL [place] Interpretation and review of laboratory results Abnormal [place] Hgb/Hcton 10-13-2020 Hematocrit (Bld) [Volume fraction] 25.5 % Low 40.7-50.3 [facility] Comment on above: Performed By: #### H H #### [facility] [address] [place], [place] [id number] [employer] Operator: Harinder Rosales MD Hemoglobin (Bld) [Mass/Vol] 8.0 g/dL Low 13.0-17.0 [facility] Comment on above: Performed By: #### H H #### [facility] [address] [place], [place] [id number] [employer] Operator: Harinder Rosales MD Hemoglobin and Hematocrit, B loodon 10-12-2020 Hematocrit (Bld) [Volume fraction] 24.3 % Low 40.7 - 50.3 % [place] Hemoglobin (Bld) [Mass/Vol] 7.5 g/dL Low 13 - 17 g/dL [place] Interpretation and review of laboratory results Abnormal [place] Hgb/Hcton 10-12-2020 Hematocrit (Bld) [Volume fraction] 24.3 % Low 40.7-50.3 [facility] Comment on above: Performed By: #### H H #### [facility] [place] [address] [employer] Operator: David Tate MD Hemoglobin (Bld) [Mass/Vol] 7.5 g/dL Low 13.0-17.0 [facility] Comment on above: Performed By: #### H H #### [facility] [address] [place] [id number] [employer] Operator: David Tate MD Hemoglobin and Hematocrit, B lopalisade 10-11-2020 Hematocrit (Bld) [Volume fraction] 24.2 % Low 40.7 - 50.3 % [place] Hemoglobin (Bld) [Mass/Vol] 7.6 g/dL Low 13 - 17 g/dL [place] Interpretation and review of laboratory results Abnormal [place] Hgb/Hcton 10-11-2020 Hematocrit (Bld) [Volume fraction] 24.2 % Low 40.7-50.3 [facility] Comment on above: Performed By: #### H H #### [facility] [address] [place] [id number] [employer] Operator: David Tate MD Hemoglobin (Bld) [Mass/Vol] 7.6 g/dL Low 13.0-17.0 [facility] Comment on above: Performed By: #### H H #### [facility] [place] [address] [employer] Operator: David Tate MD Hemoglobin and Hematocrit, B loodon 10-10-2020 Hematocrit (Bld) [Volume fraction] 24.0 % Low 40.7 - 50.3 % [place] Hemoglobin (Bld) [Mass/Vol] 7.4 g/dL Low 13 - 17 g/dL [place] Interpretation and review of laboratory results Abnormal [place] Hgb/Hcton 10-10-2020 Hematocrit (Bld) [Volume fraction] 24.0 % Low 40.7-50.3 [facility] Comment on above: Performed By: #### H H #### [facility] [address] [place] [address] [employer] Operator: David Tate MD Hemoglobin (Bld) [Mass/Vol] 7.4 g/dL Low 13.0-17.0 [facility] Comment on above: Performed By: #### H H #### [facility] [address] [place], [place] [id number] [employer] Operator: David Tate MD Basic Metabolic Panelon Anion gap [Moles/Vol] 10 mmol/L 9 - 17 mmol/L [place] Bun/Cre Ratio NOT REPORTED [place], [place] Calcium [Mass/Vol] 7.9 mg/dL Low 8.6 - 10. 4 mg/dL [place] Chloride [Moles/Vol] 104 mmol/L 98 - 10 7 mmol/L [place] CO2 [Moles/Vol] 20 mmol/L 20 - 31 mmol/L [place] Creatinine [Mass/Vol] 2.83 mg/dL High 0.7 - 1.2 mg/dL [place] GFR 27 mL/min Low >60 [place] GFR Non- 22 mL/min Low >60 [place] GFR/1.73 sq M predicted among non-blacks MDRD (S/P/Bld) [Vol rate/Area] NOT REPORTED [place] GFR/1.73 sq M predicted among non-blacks MDRD (S/P/Bld) [Vol rate/Area] [place] Comment on above: Average GFR for 70 o r more years old: 75 mL/min/1.73sq m Chronic Kidney Disease: <60 mL/min/1.73sq m Kidney failure: <15 mL/min/1.73sq m eGFR calculated using average adult body mass. Additional eGFR calculator available at: http://www.[employer]/multiple_crcl_2012.htm Glucose [Mass/Vol] 90 mg/dL 70 - 99 mg/dL [place] Interpretation and review of laboratory results Abnormal [place] Potassium [Moles/Vol] 4.1 mmol/L 3.7 - 5.3 mmol/L [place] Sodium [Moles/Vol] 134 mmol/L Low 135 - 144 mmol/L [place], [place] Urea nitrogen [Mass/Vol] 36 mg/dL High 8 - 23 mg/dL [place], [place] Basic Metabolic Profon 10-09 (cont.) Normal [facility] Comment on above: Result Comment: Aver age GFR for 70 or more years old: 75 mL/min/1.73sq m Chronic Kidney Disease: <60 mL/min/1.73sq m Kidney failure: <15 mL/min/1.73sq m eGFR calculated using average adult body mass. Additional eGFR calculator available at: [email or web address] Performed By: #### C CHER, BMP #### [facility] [address] [place] [address] Bullet Charging Machine Operator: David Tate MD Anion gap [Moles/Vol] 10 mmol/L Normal 9-17 [facility] Comment on above: Performed By: #### Olu KWON, BMP #### [facility] [address] [place], [place] [phone] [employer] Charging Machine Operator: David Tate MD Calcium [Mass/Vol] 7.9 mg/dL Low 8.6-10.4 [facility] Comment on above: Performed By: #### C CHER, BMP #### [facility] [address] [place] [address] [employer] Charging Machine Operator: David Tate MD Chloride [Moles/Vol] 104 mmol/L Normal 98-107 [facility] Comment on above: Performed By: #### C CHER, BMP #### [facility] [address] [place] [address] [employer] Charging Machine Operator: David Tate MD CO2 [Moles/Vol] 20 mmol/L Normal 20-31 [facility] Comment on above: Performed By: #### C BC, BMP #### [facility] [address] [place] [address] [employer] Charging Machine Operator: David Tate MD Creatinine [Mass/Vol] 2.83 mg/dL High 0.70-1.20 [facility] Comment on above: Performed By: #### C BC, BMP #### [facility] [address] [place] [address] Bullet Charging Machine Operator: David Tate MD GFR, Amer 27 mL/min Low >60 [facility] Comment on above: Performed By: #### C BC, BMP #### [facility] [address] [place] [address] [employer] Charging Machine Operator: David Tate MD GFR,non Amer 22 mL/min Low >60 [facility] Comment on above: Performed By: #### C BC, BMP #### [facility] [address] [place] [address] [employer] Charging Machine Operator: David Tate MD Glucose [Mass/Vol] 90 mg/dL Normal 70-99 [facility] Comment on above: Performed By: #### C BC, BMP #### [facility] [address] [place] [address] [employer] Charging Machine Operator: David Tate MD Potassium [Moles/Vol] 4.1 mmol/L Normal 3.7-5.3 [facility] Comment on above: Performed By: #### C BC, BMP #### [facility] [address] [place] [address] [employer] Charging Machine Operator: David Tate MD Sodium [Moles/Vol] 134 mmol/L Low 135-144 [facility] Comment on above: Performed By: #### C BC, BMP #### [facility] [address] [place] [address] Bullet Charging Machine Operator: David Tate MD Urea nitrogen [Mass/Vol] 36 mg/dL High 8- [facility] Comment on above: Performed By: #### C BC, BMP #### [address] [address] [employer] Charging Machine Operator: David Tate MD BUN/CRE Ratio NOT REPORTED Normal - [facility] Comment on above: Performed By: #### C BC, BMP #### [address] [address] Bullet Charging Machine Operator: David Tate MD Staging: NOT REPORTED Normal [facility] Comment on above: Performed By: #### C BC, BMP #### [address] [address] [employer] Charging Machine Operator: David Tate MD CBCon 10-09-2020 Erythrocyte distribution width (RBC) [Ratio] 14.6 % High 11.8-14.4 [facility] Comment on above: Performed By: #### C BC, BMP #### [address] [address] [employer] Charging Machine Operator: David Tate MD Hematocrit (Bld) [Volume fraction] 24.8 % Low 40.7-50.3 [facility] Comment on above: Performed By: #### C BC, BMP #### [facility] [address] [place] [address] [employer] Charging Machine Operator: David Tate MD Hemoglobin (Bld) [Mass/Vol] 7.8 g/dL Low 13.0-17.0 [facility] Comment on above: Performed By: #### C BC, BMP #### [address] [address] Bullet Charging Machine Operator: David Tate MD MCH (RBC) [Entitic mass] 30.5 pg Normal 25.2-33.5 [facility] Comment on above: Performed By: #### C BC, BMP #### [address] [address] Bullet Charging Machine Operator: David Tate MD MCHC (RBC) [Mass/Vol] 31.5 g/dL Normal 28.4-34.8 [facility] Comment on above: Performed By: #### C BC, BMP #### [address] [address] [employer] Charging Machine Operator: David Tate MD MCV (RBC) [Entitic vol] 96.9 fL Normal 82.6-102.9 [facility] Comment on above: Performed By: #### C CHER, BMP #### [address] [address] [employer] Charging Machine Operator: David Tate MD NRBC Automated 0.0 per 100 WBC Normal 0.0 [facility] Comment on above: Performed By: #### C CHER, BMP #### [address] [address] [employer] Charging Machine Operator: David Tate MD Platelet mean volume (Bld) [Entitic vol] 11.1 fL Normal 8.1-13.5 [facility] Comment on above: Performed By: #### C BC, BMP #### [address] [address] [employer] Charging Machine Operator: David Tate MD Platelets (Bld) [#/Vol] 348 10*3/uL Normal 138-453 [facility] Comment on above: Performed By: #### C BC, BMP #### [address] [address] Bullet Charging Machine Operator: David Tate MD RBC (Bld) [#/Vol] 2.56 10*6/uL Low 4.21-5.77 [facility] Comment on above: Performed By: #### C BC, BMP #### [facility] [address] [place], [place] [phone] Bullet Charging Machine Operator: David Tate MD WBC (Bld) [#/Vol] 6.6 10*3/uL Normal 3.5-11.3 [facility] Comment on above: Performed By: #### C BC, BMP #### [facility] [employer] [address] [place], [place] [phone] [employer] Charging Machine Operator: David Tate MD Erythrocyte distribution width (RBC) [Ratio] 14.6 % High 11.8 - 14.4 % [place] Hematocrit (Bld) [Volume fraction] 24.8 % Low 40.7 - 50.3 % [place] Hemoglobin (Bld) [Mass/Vol] 7.8 g/dL Low 13 - 17 g/dL [place] Interpretation and review of laboratory results Abnormal [place] MCH (RBC) [Entitic mass] 30.5 pg 25.2 - 33.5 pg [place] MCHC (RBC) [Mass/Vol] 31.5 g/dL 28.4 - 34.8 g/dL [place] MCV (RBC) [Entitic vol] 96.9 fL 82.6 - 102.9 fL [place] Platelet mean volume (Bld) [Entitic vol] 11.1 fL 8.1 - 13.5 fL [place] Platelets (Bld) [#/Vol] 348 10*3/uL [place] RBC (Bld) [#/Vol] 2.56 10*6/uL Low 4.21 - 5.7 7 m/uL [place] WBC (Bld) [#/Vol] 0.0 10*3/uL 0.0 per 10 0 WBC [place] WBC (Bld) [#/Vol] 6.6 10*3/uL [place] BASIC METABOLIC PANELon 11-2 Calcium [Mass/Vol] 7.4 mg/dL Low 8.6-10.3 [facility] Comment on above: Order Comment: No: D o not add to previous draw Performed By: #### 5 0608 #### [facility] [address] [place] [address], [place] Chloride [Moles/Vol] 106 mmol/L Normal 98-107 [facility] Comment on above: Order Comment: No: D o not add to previous draw Performed By: #### 5 0608 #### [facility] [address] [place] [address], [place] CO2 [Moles/Vol] 22 mmol/L Normal 21-31 [facility] Comment on above: Order Comment: No: D o not add to previous draw Performed By: #### 5 0608 #### [facility] [address] [place] [address], [place] Creatinine [Mass/Vol] 3.64 mg/dL High 0.70-1.30 [facility] Comment on above: Order Comment: No: D o not add to previous draw Performed By: #### 5 0608 #### [facility] [address] [place] [address], [place] GFR/1.73 sq M predicted among blacks MDRD (S/P/Bld) [Vol rate/Area] 20 ml/min/1.73sq m Abnormal >60 [facility] Comment on above: Order Comment: No: D o not add to previous draw Result Comment: Calc ulation may not be valid for patients over 70 years Performed By: #### 5 0608 #### [facility] [address] [place] [address], [place] GFR/1.73 sq M predicted among non-blacks MDRD (S/P/Bld) [Vol rate/Area] 16 ml/min/1.73sq m Abnormal >60 [facility] Comment on above: Order Comment: No: D o not add to previous draw Result Comment: Calc ulation may not be valid for patients over 70 years Performed By: #### 5 0608 #### [facility] [address] [place] [address], [place] Glucose [Mass/Vol] 87 mg/dL Normal 70-100 [facility] Comment on above: Order Comment: No: D o not add to previous draw Performed By: #### 5 0608 #### [facility] [address] [place] [address], [place] Potassium [Moles/Vol] 4.4 mmol/L Normal 3.5-5.1 [facility] Comment on above: Order Comment: No: D o not add to previous draw Performed By: #### 5 0608 #### [facility] [address] [place] [address], [place] Sodium [Moles/Vol] 134 mmol/L Low 136-145 [facility] Comment on above: Order Comment: No: D o not add to previous draw Performed By: #### 5 0608 #### [facility] [address] [place] [address], [facility] Urea nitrogen [Mass/Vol] 32 mg/dL High 7-25 [facility] Comment on above: Order Comment: No: D o not add to previous draw Performed By: #### 5 0608 #### [facility] [address] [place] [address], [facility] CBC COMPLETE BLOOD COUNTon 11-26-2019 Erythrocyte distribution width (RBC) [Ratio] 15.3 % High 11.5-15.0 [facility] Comment on above: Order Comment: No: D o not add to previous draw Performed By: #### 1 0008 #### [facility] [address] [place] [address], [facility] Hematocrit (Bld) [Volume fraction] 21.9 % Low 39.0-50.0 [facility] Comment on above: Order Comment: No: D o not add to previous draw Performed By: #### 1 0008 #### [facility] [address] Hemoglobin (Bld) [Mass/Vol] 7.4 g/dL Low 13.0-17.0 [facility] Comment on above: Order Comment: No: D o not add to previous draw Performed By: #### 1 0008 #### [facility] [address] [place] [address], [facility] MCH (RBC) [Entitic mass] 31.6 pg Normal 27.0-33.0 [facility] Comment on above: Order Comment: No: D o not add to previous draw Performed By: #### 1 0008 #### [facility] [address] [facility]. [address] MCHC (RBC) [Mass/Vol] 33.8 g/dL Normal 32.0-35.0 [facility] Comment on above: Order Comment: No: D o not add to previous draw Performed By: #### 1 0008 #### [facility] [address] [facility] [place] [address], [facility] MCV (RBC) [Entitic vol] 93.6 fL Normal 82.0-98.0 [facility] Comment on above: Order Comment: No: D o not add to previous draw Performed By: #### 1 0008 #### [facility] [address] [facility]. [address] Nucleated RBC/100 WBC (Bld) [Ratio] 0 % Normal 0-0 [facility] Comment on above: Order Comment: No: D o not add to previous draw Performed By: #### 1 0008 #### [facility] [address] [facility] [place] [address], [facility] PLAT CNT 164 10*3/uL Normal 150-400 [facility] Comment on above: Order Comment: No: D o not add to previous draw Performed By: #### 1 0008 #### [facility] [address] [place] [address], [facility] RBC (Bld) [#/Vol] 2.34 10*6/uL Low 4.20-5.70 [facility] Comment on above: Order Comment: No: D o not add to previous draw Performed By: #### 1 0008 #### [facility] [address] [place] [address], [facility] WBC (Bld) [#/Vol] 3.48 10*3/uL Low 4.00-10.60 [facility] Comment on above: Order Comment: No: D o not add to previous draw Performed By: #### 1 0008 #### [facility] [address] [place] [address], [facility] MAGNESIUM BLOODon 09-26-2020 Magnesium [Mass/Vol] 1.6 mg/dL Low 1.9-2.7 [facility] Comment on above: Order Comment: No: D o not add to previous draw Performed By: #### 5 0608 #### [facility] [address] [place] [address], [facility] BASIC METABOLIC PANELon 09-04 Calcium [Mass/Vol] 8.0 mg/dL Low 8.6-10.3 [facility] Comment on above: Order Comment: No: D o not add to previous draw Performed By: #### 0 0071 ####[facility] [place] [place] [address], [facility] Chloride [Moles/Vol] 108 mmol/L High 98-107 [facility] Comment on above: Order Comment: No: D o not add to previous draw Performed By: #### 0 0071 ####[facility] [place] [place] [address], [facility] CO2 [Moles/Vol] 20 mmol/L Low 21-31 [facility] Comment on above: Order Comment: No: D o not add to previous draw Performed By: #### 0 0071 ####[facility] [place] [address], [place] Creatinine [Mass/Vol] 3.44 mg/dL High 0.70-1.30 [facility] Comment on above: Order Comment: No: D o not add to previous draw Performed By: #### 0 0071 ####[facility] [place] [address], [place] GFR/1.73 sq M predicted among blacks MDRD (S/P/Bld) [Vol rate/Area] 21 ml/min/1.73sq m Abnormal >60 [facility] Comment on above: Order Comment: No: D o not add to previous draw Result Comment: Calc ulation may not be valid for patients over 70 years Performed By: #### 0 0071 ####[facility] [place] [address], [place] GFR/1.73 sq M predicted among non-blacks MDRD (S/P/Bld) [Vol rate/Area] 18 ml/min/1.73sq m Abnormal >60 [facility] Comment on above: Order Comment: No: D o not add to previous draw Result Comment: Calc ulation may not be valid for patients over 70 years Performed By: #### 0 0071 ####[facility] [place] [address], [place] Glucose [Mass/Vol] 88 mg/dL Normal 70-100 [facility] Comment on above: Order Comment: No: D o not add to previous draw Performed By: #### 0 0071 ####[facility] [place] [address], [place] Potassium [Moles/Vol] 4.1 mmol/L Normal 3.5-5.1 [facility] Comment on above: Order Comment: No: D o not add to previous draw Performed By: #### 0 0071 ####[facility] [place] [address], [place] Sodium [Moles/Vol] 134 mmol/L Low 136-145 [facility] Comment on above: Order Comment: No: D o not add to previous draw Performed By: #### 0 0071 ####[facility] [address] Urea nitrogen [Mass/Vol] 27 mg/dL High 7-25 [facility] Comment on above: Order Comment: No: D o not add to previous draw Performed By: #### 0 0071 ####[facility] [address] CBC COMPLETE BLOOD COUNTon 11-25-2019 Erythrocyte distribution width (RBC) [Ratio] 15.4 % High 11.5-15.0 [facility] Comment on above: Order Comment: The A ptima SARS-CoV-2 assay is a nucleic acid amplification test intended for the qualitative detection of RNA from SARS-CoV-2 isolated and purified from nasopharyngeal (FOOTWEAR PRODUCTION MACHINE OPERATOR),oropharyngeal (OP), nasal swab, sputum, and bronchoalveolar lavage (BAL) specimens from patients with signs and symptoms of infection who are suspected of COVID-19. Results are for the identification of SARS-CoV-2 RNA. The SARS-CoV-2 RNA is generally detectable during the acute phase of infection. The Aptima SARS-CoV-2 Assay on the [employer] system is intended for use by laboratory personnel specifically instructed and trained in the operation of the [place] and [employer] system. The Aptima SARS-CoV-2 assay is only for use under the Food and Drug Administration Emergency Use Authorization. Testing is limited to laboratories certified under the Clinical Laboratory Improvement Amendments of 1988 (CLIA), 42 U.S.C. ???263a, to perform high complexity tests. Not Detected: Not detected does not preclude SARS-CoV-2 infection and should not be used as the sole basis for patient management decisions. Not detected results must be combined with clinical observations, patient history, and epidemiological information. Performed By: #### 3 1792 #### [facility] [address] Hematocrit (Bld) [Volume fraction] 22.6 % Low 39.0-50.0 [facility] Comment on above: Order Comment: The A ptima SARS-CoV-2 assay is a nucleic acid amplification test intended for the qualitative detection of RNA from SARS-CoV-2 isolated and purified from nasopharyngeal (FOOTWEAR PRODUCTION MACHINE OPERATOR),oropharyngeal (OP), nasal swab, sputum, and bronchoalveolar lavage (BAL) specimens from patients with signs and symptoms of infection who are suspected of COVID-19. Results are for the identification of SARS-CoV-2 RNA. The SARS-CoV-2 RNA is generally detectable during the acute phase of infection. The Aptima SARS-CoV-2 Assay on the [employer] system is intended for use by laboratory personnel specifically instructed and trained in the operation of the [place] and [employer] system. The Aptima SARS-CoV-2 assay is only for use under the Food and Drug Administration Emergency Use Authorization. Testing is limited to laboratories certified under the Clinical Laboratory Improvement Amendments of 1988 (CLIA), 42 U.S.C. ???263a, to perform high complexity tests. Not Detected: Not detected does not preclude SARS-CoV-2 infection and should not be used as the sole basis for patient management decisions. Not detected results must be combined with clinical observations, patient history, and epidemiological information. Performed By: #### 3 1792 #### [place] [address] Hemoglobin (Bld) [Mass/Vol] 7.5 g/dL Low 13.0-17.0 [facility] Comment on above: Order Comment: The A ptima SARS-CoV-2 assay is a nucleic acid amplification test intended for the qualitative detection of RNA from SARS-CoV-2 isolated and purified from nasopharyngeal (FOOTWEAR PRODUCTION MACHINE OPERATOR),oropharyngeal (OP), nasal swab, sputum, and bronchoalveolar lavage (BAL) specimens from patients with signs and symptoms of infection who are suspected of COVID-19. Results are for the identification of SARS-CoV-2 RNA. The SARS-CoV-2 RNA is generally detectable during the acute phase of infection. The Aptima SARS-CoV-2 Assay on the [place] [employer] [place] [employer] system is intended for use by laboratory personnel specifically instructed and trained in the operation of the [place] [employer] system. The Aptima SARS-CoV-2 assay is only for use under the Food and Drug Administration Emergency Use Authorization. Testing is limited to laboratories certified under the Clinical Laboratory Improvement Amendments of 1988 (CLIA), 42 U.S.C. ???263a, to perform high complexity tests. Not Detected: Not detected does not preclude SARS-CoV-2 infection and should not be used as the sole basis for patient management decisions. Not detected results must be combined with clinical observations, patient history, and epidemiological information. Performed By: #### 3 1792 #### [facility] [address] [facility] [place] [address], [facility] MCH (RBC) [Entitic mass] 30.9 pg Normal 27.0-33.0 [facility] Comment on above: Order Comment: The A ptima SARS-CoV-2 assay is a nucleic acid amplification test intended for the qualitative detection of RNA from SARS-CoV-2 isolated and purified from nasopharyngeal (FOOTWEAR PRODUCTION MACHINE OPERATOR),oropharyngeal (OP), nasal swab, sputum, and bronchoalveolar lavage (BAL) specimens from patients with signs and symptoms of infection who are suspected of COVID-19. Results are for the identification of SARS-CoV-2 RNA. The SARS-CoV-2 RNA is generally detectable during the acute phase of infection. The Aptima SARS-CoV-2 Assay on the [place] [employer] [place] [employer] system is intended for use by laboratory personnel specifically instructed and trained in the operation of the [place] [employer] system. The Aptima SARS-CoV-2 assay is only for use under the Food and Drug Administration Emergency Use Authorization. Testing is limited to laboratories certified under the Clinical Laboratory Improvement Amendments of 1988 (CLIA), 42 U.S.C. ???263a, to perform high complexity tests. Not Detected: Not detected does not preclude SARS-CoV-2 infection and should not be used as the sole basis for patient management decisions. Not detected results must be combined with clinical observations, patient history, and epidemiological information. Performed By: #### 3 1792 #### [facility] [address] [place] [id number], [facility] MCHC (RBC) [Mass/Vol] 33.2 g/dL Normal 32.0-35.0 [facility] Comment on above: Order Comment: The A ptima SARS-CoV-2 assay is a nucleic acid amplification test intended for the qualitative detection of RNA from SARS-CoV-2 isolated and purified from nasopharyngeal (FOOTWEAR PRODUCTION MACHINE OPERATOR),oropharyngeal (OP), nasal swab, sputum, and bronchoalveolar lavage (BAL) specimens from patients with signs and symptoms of infection who are suspected of COVID-19. Results are for the identification of SARS-CoV-2 RNA. The SARS-CoV-2 RNA is generally detectable during the acute phase of infection. The Aptima SARS-CoV-2 Assay on the [place] [employer] [place] [employer] system is intended for use by laboratory personnel specifically instructed and trained in the operation of the [place] [employer] [place] [employer] system. The Aptima SARS-CoV-2 assay is only for use under the Food and Drug Administration Emergency Use Authorization. Testing is limited to laboratories certified under the Clinical Laboratory Improvement Amendments of 1988 (CLIA), 42 U.S.C. ???263a, to perform high complexity tests. Not Detected: Not detected does not preclude SARS-CoV-2 infection and should not be used as the sole basis for patient management decisions. Not detected results must be combined with clinical observations, patient history, and epidemiological information. Performed By: #### 3 1792 #### [address] MCV (RBC) [Entitic vol] 93.0 fL Normal 82.0-98.0 [facility] Comment on above: Order Comment: The A ptima SARS-CoV-2 assay is a nucleic acid amplification test intended for the qualitative detection of RNA from SARS-CoV-2 isolated and purified from nasopharyngeal (FOOTWEAR PRODUCTION MACHINE OPERATOR),oropharyngeal (OP), nasal swab, sputum, and bronchoalveolar lavage (BAL) specimens from patients with signs and symptoms of infection who are suspected of COVID-19. Results are for the identification of SARS-CoV-2 RNA. The SARS-CoV-2 RNA is generally detectable during the acute phase of infection. The Aptima SARS-CoV-2 Assay on the [place] [employer] [place] [employer] system is intended for use by laboratory personnel specifically instructed and trained in the operation of the [place] [employer] system. The Aptima SARS-CoV-2 assay is only for use under the Food and Drug Administration Emergency Use Authorization. Testing is limited to laboratories certified under the Clinical Laboratory Improvement Amendments of 1988 (CLIA), 42 U.S.C. ???263a, to perform high complexity tests. Not Detected: Not detected does not preclude SARS-CoV-2 infection and should not be used as the sole basis for patient management decisions. Not detected results must be combined with clinical observations, patient history, and epidemiological information. Performed By: #### 3 1792 #### [facility] [address] Nucleated RBC/100 WBC (Bld) [Ratio] 0 % Normal 0-0 [facility] Comment on above: Order Comment: The A ptima SARS-CoV-2 assay is a nucleic acid amplification test intended for the qualitative detection of RNA from SARS-CoV-2 isolated and purified from nasopharyngeal (FOOTWEAR PRODUCTION MACHINE OPERATOR),oropharyngeal (OP), nasal swab, sputum, and bronchoalveolar lavage (BAL) specimens from patients with signs and symptoms of infection who are suspected of COVID-19. Results are for the identification of SARS-CoV-2 RNA. The SARS-CoV-2 RNA is generally detectable during the acute phase of infection. The Aptima SARS-CoV-2 Assay on the [place] and [place] [employer] system is intended for use by laboratory personnel specifically instructed and trained in the operation of the [place] [employer] [place] [employer] [facility]. The Aptima SARS-CoV-2 assay is only for use under the Food and Drug Administration Emergency Use Authorization. Testing is limited to laboratories certified under the Clinical Laboratory Improvement Amendments of 1988 (CLIA), 42 U.S.C. ???263a, to perform high complexity tests. Not Detected: Not detected does not preclude SARS-CoV-2 infection and should not be used as the sole basis for patient management decisions. Not detected results must be combined with clinical observations, patient history, and epidemiological information. Performed By: #### 3 [id number] #### [facility] [address] [facility] [place] [address], [facility] PLAT CNT 169 10*3/uL Normal 150-400 [facility] Comment on above: Order Comment: The A ptima SARS-CoV-2 assay is a nucleic acid amplification test intended for the qualitative detection of RNA from SARS-CoV-2 isolated and purified from nasopharyngeal (FOOTWEAR PRODUCTION MACHINE OPERATOR),oropharyngeal (OP), nasal swab, sputum, and bronchoalveolar lavage (BAL) specimens from patients with signs and symptoms of infection who are suspected of COVID-19. Results are for the identification of SARS-CoV-2 RNA. The SARS-CoV-2 RNA is generally detectable during the acute phase of infection. The Aptima SARS-CoV-2 Assay on the [place] [employer] [place] [employer] system is intended for use by laboratory personnel specifically instructed and trained in the operation of the [place] [employer] [place] [employer] [facility]. The Aptima SARS-CoV-2 assay is only for use under the Food and Drug Administration Emergency Use Authorization. Testing is limited to laboratories certified under the Clinical Laboratory Improvement Amendments of 1988 (CLIA), 42 U.S.C. ???263a, to perform high complexity tests. Not Detected: Not detected does not preclude SARS-CoV-2 infection and should not be used as the sole basis for patient management decisions. Not detected results must be combined with clinical observations, patient history, and epidemiological information. Performed By: #### 3 1792 #### [facility] [address] [facility]. [address] RBC (Bld) [#/Vol] 2.43 10*6/uL Low 4.20-5.70 [facility] Comment on above: Order Comment: The A ptima SARS-CoV-2 assay is a nucleic acid amplification test intended for the qualitative detection of RNA from SARS-CoV-2 isolated and purified from nasopharyngeal (FOOTWEAR PRODUCTION MACHINE OPERATOR),oropharyngeal (OP), nasal swab, sputum, and bronchoalveolar lavage (BAL) specimens from patients with signs and symptoms of infection who are suspected of COVID-19. Results are for the identification of SARS-CoV-2 RNA. The SARS-CoV-2 RNA is generally detectable during the acute phase of infection. The Aptima SARS-CoV-2 Assay on the [place] [employer] [place] [employer] system is intended for use by laboratory personnel specifically instructed and trained in the operation of the [place] [employer] [place] [employer] [facility]. The Aptima SARS-CoV-2 assay is only for use under the Food and Drug Administration Emergency Use Authorization. Testing is limited to laboratories certified under the Clinical Laboratory Improvement Amendments of 1988 (CLIA), 42 U.S.C. ???263a, to perform high complexity tests. Not Detected: Not detected does not preclude SARS-CoV-2 infection and should not be used as the sole basis for patient management decisions. Not detected results must be combined with clinical observations, patient history, and epidemiological information. Performed By: #### 3 [id number] #### [facility] [address] WBC (Bld) [#/Vol] 3.03 10*3/uL Low 4.00-10.60 [facility] Comment on above: Order Comment: The A ptima SARS-CoV-2 assay is a nucleic acid amplification test intended for the qualitative detection of RNA from SARS-CoV-2 isolated and purified from nasopharyngeal (FOOTWEAR PRODUCTION MACHINE OPERATOR),oropharyngeal (OP), nasal swab, sputum, and bronchoalveolar lavage (BAL) specimens from patients with signs and symptoms of infection who are suspected of COVID-19. Results are for the identification of SARS-CoV-2 RNA. The SARS-CoV-2 RNA is generally detectable during the acute phase of infection. The Aptima SARS-CoV-2 Assay on the [place] [place] [employer] system is intended for use by laboratory personnel specifically instructed and trained in the operation of the [place] [employer] [place] [employer] [facility]. The Aptima SARS-CoV-2 assay is only for use under the Food and Drug Administration Emergency Use Authorization. Testing is limited to laboratories certified under the Clinical Laboratory Improvement Amendments of 1988 (CLIA), 42 U.S.C. ???263a, to perform high complexity tests. Not Detected: Not detected does not preclude SARS-CoV-2 infection and should not be used as the sole basis for patient management decisions. Not detected results must be combined with clinical observations, patient history, and epidemiological information. Performed By: #### 3 [id number] #### [facility] [address] [facility] [place] [address], [facility] PROTHROMBIN TIMEon 0 INR Coag (PPP) [Relative time] 1.06 {INR} Normal 0.91-1.16 [facility] Comment on above: Order Comment: No: D o not add to previous draw Result Comment: ACCC P RECOMMENDED INR FOR WARFARIN THERAPY --------- ------- CONDITION INR PROPHYLAXIS OF VENOUS THROMBOSIS 2-3 (HIGH-RISK SURGERY) TREATMENT OF VENOUS THROMBOSIS 2-3 TREATMENT OF PULMONARY EMBOLISM 2-3 PREVENTION OF SYSTEMIC EMBOLISM: 2-3 ACUTE MYOCARDIAL INFARCTION TISSUE HEART VALVES VALVULAR HEART DISEASE ATRIAL FIBRILLATION RECURRENT SYSTEMIC EMBOLISM MECHANICAL HEART VALVE 2.5-3.5 FROM: ORAL ANTICOAGULANTS. MECHANISM OF ACTION, CLINICAL EFFECTIVENESS, AND OPTIMAL THERAPEUTIC RANGE. CHEST 1995;108:231S-246S. Performed By: #### 5 [id number] #### [facility] [address] PT Coag (PPP) [Time] 13.8 s Normal 12.3-14.8 [facility] Comment on above: Order Comment: No: D o not add to previous draw Result Comment: ALL RESULTS MUST BE INTERPRETED WITH RESPECT TO BLOOD DRAWING ARTIFACT OR DILUTION ERROR OF ANTICOAGULANT AT THE TIME OF SAMPLING. Performed By: #### 5 [id number] #### [facility] [address] BASIC METABOLIC PANELon 11-2 Calcium [Mass/Vol] 7.9 mg/dL Low 8.6-10.3 [facility] Comment on above: Order Comment: No: D o not add to previous draw Performed By: #### 5 [id number] #### [facility] [address] Chloride [Moles/Vol] 109 mmol/L High 98-107 [facility] Comment on above: Order Comment: No: D o not add to previous draw Performed By: #### 5 [id number] #### [facility] [address] [place] [address], [place] CO2 [Moles/Vol] 21 mmol/L Normal 21-31 [facility] Comment on above: Order Comment: No: D o not add to previous draw Performed By: #### 5 [id number] #### [facility] [address] [place] [address], [place] Creatinine [Mass/Vol] 3.69 mg/dL High 0.70-1.30 [facility] Comment on above: Order Comment: No: D o not add to previous draw Performed By: #### 5 [id number] #### [facility] [address] [place] [address], [place] GFR/1.73 sq M predicted among blacks MDRD (S/P/Bld) [Vol rate/Area] 20 ml/min/1.73sq m Abnormal >60 [facility] Comment on above: Order Comment: No: D o not add to previous draw Result Comment: Calc ulation may not be valid for patients over 70 years Performed By: #### 5 [id number] #### [facility] [address] [place] [address], [place] GFR/1.73 sq M predicted among non-blacks MDRD (S/P/Bld) [Vol rate/Area] 16 ml/min/1.73sq m Abnormal >60 [facility] Comment on above: Order Comment: No: D o not add to previous draw Result Comment: Calc ulation may not be valid for patients over 70 years Performed By: #### 5 [id number] #### [facility] [address] [place] [address], [place] Glucose [Mass/Vol] 82 mg/dL Normal 70-100 [facility] Comment on above: Order Comment: No: D o not add to previous draw Performed By: #### 5 [id number] #### [facility] [address] [place] [address], [place] Potassium [Moles/Vol] 4.1 mmol/L Normal 3.5-5.1 [facility] Comment on above: Order Comment: No: D o not add to previous draw Performed By: #### 5 [id number] #### [facility] [address] [facility]. [address] Sodium [Moles/Vol] 136 mmol/L Normal 136-145 [facility] Comment on above: Order Comment: No: D o not add to previous draw Performed By: #### 5 [id number] #### [facility] [address] Urea nitrogen [Mass/Vol] 32 mg/dL High 7-25 [facility] Comment on above: Order Comment: No: D o not add to previous draw Performed By: #### 5 [id number] #### [facility] [address] CBC COMPLETE BLOOD COUNTon 11-24-2019 Erythrocyte distribution width (RBC) [Ratio] 15.9 % High 11.5-15.0 [facility] Comment on above: Order Comment: The A ptima SARS-CoV-2 assay is a nucleic acid amplification test intended for the qualitative detection of RNA from SARS-CoV-2 isolated and purified from nasopharyngeal (FOOTWEAR PRODUCTION MACHINE OPERATOR),oropharyngeal (OP), nasal swab, sputum, and bronchoalveolar lavage (BAL) specimens from patients with signs and symptoms of infection who are suspected of COVID-19. Results are for the identification of SARS-CoV-2 RNA. The SARS-CoV-2 RNA is generally detectable during the acute phase of infection. The Aptima SARS-CoV-2 Assay on the [place] [place] [employer] system is intended for use by laboratory personnel specifically instructed and trained in the operation of the [place] [employer] [place] [employer] [facility]. The Aptima SARS-CoV-2 assay is only for use under the Food and Drug Administration Emergency Use Authorization. Testing is limited to laboratories certified under the Clinical Laboratory Improvement Amendments of 1988 (CLIA), 42 U.S.C. ???263a, to perform high complexity tests. Not Detected: Not detected does not preclude SARS-CoV-2 infection and should not be used as the sole basis for patient management decisions. Not detected results must be combined with clinical observations, patient history, and epidemiological information. Performed By: #### 3 [id number] #### [facility] [address] Hematocrit (Bld) [Volume fraction] 24.7 % Low 39.0-50.0 [facility] Comment on above: Order Comment: The A ptima SARS-CoV-2 assay is a nucleic acid amplification test intended for the qualitative detection of RNA from SARS-CoV-2 isolated and purified from nasopharyngeal (FOOTWEAR PRODUCTION MACHINE OPERATOR),oropharyngeal (OP), nasal swab, sputum, and bronchoalveolar lavage (BAL) specimens from patients with signs and symptoms of infection who are suspected of COVID-19. Results are for the identification of SARS-CoV-2 RNA. The SARS-CoV-2 RNA is generally detectable during the acute phase of infection. The Aptima SARS-CoV-2 Assay on the [place] [employer] [facility] [employer] system is intended for use by laboratory personnel specifically instructed and trained in the operation of the [place] [facility] [place] [employer] system. The Aptima SARS-CoV-2 assay is only for use under the Food and Drug Administration Emergency Use Authorization. Testing is limited to laboratories certified under the Clinical Laboratory Improvement Amendments of 1988 (CLIA), 42 U.S.C. ???263a, to perform high complexity tests. Not Detected: Not detected does not preclude SARS-CoV-2 infection and should not be used as the sole basis for patient management decisions. Not detected results must be combined with clinical observations, patient history, and epidemiological information. Performed By: #### 3 1792 #### [facility] [address] [place] [address], [facility] Hemoglobin (Bld) [Mass/Vol] 8.2 g/dL Low 13.0-17.0 [facility] Comment on above: Order Comment: The A ptima SARS-CoV-2 assay is a nucleic acid amplification test intended for the qualitative detection of RNA from SARS-CoV-2 isolated and purified from nasopharyngeal (FOOTWEAR PRODUCTION MACHINE OPERATOR),oropharyngeal (OP), nasal swab, sputum, and bronchoalveolar lavage (BAL) specimens from patients with signs and symptoms of infection who are suspected of COVID-19. Results are for the identification of SARS-CoV-2 RNA. The SARS-CoV-2 RNA is generally detectable during the acute phase of infection. The Aptima SARS-CoV-2 Assay on the [place] [employer] [place] [employer] [facility] is intended for use by laboratory personnel specifically instructed and trained in the operation of the [place] [employer] [place] [employer] [facility]. The Aptima SARS-CoV-2 assay is only for use under the Food and Drug Administration Emergency Use Authorization. Testing is limited to laboratories certified under the Clinical Laboratory Improvement Amendments of 1988 (CLIA), 42 U.S.C. ???263a, to perform high complexity tests. Not Detected: Not detected does not preclude SARS-CoV-2 infection and should not be used as the sole basis for patient management decisions. Not detected results must be combined with clinical observations, patient history, and epidemiological information. Performed By: #### 3 [id number] #### [facility] [address] [place] [address], [facility] MCH (RBC) [Entitic mass] 31.2 pg Normal 27.0-33.0 [facility] Comment on above: Order Comment: The A ptima SARS-CoV-2 assay is a nucleic acid amplification test intended for the qualitative detection of RNA from SARS-CoV-2 isolated and purified from nasopharyngeal (FOOTWEAR PRODUCTION MACHINE OPERATOR),oropharyngeal (OP), nasal swab, sputum, and bronchoalveolar lavage (BAL) specimens from patients with signs and symptoms of infection who are suspected of COVID-19. Results are for the identification of SARS-CoV-2 RNA. The SARS-CoV-2 RNA is generally detectable during the acute phase of infection. The Aptima SARS-CoV-2 Assay on the [place] [employer] [place] [employer] system is intended for use by laboratory personnel specifically instructed and trained in the operation of the [place] [employer] [place] [employer] [facility]. The Aptima SARS-CoV-2 assay is only for use under the Food and Drug Administration Emergency Use Authorization. Testing is limited to laboratories certified under the Clinical Laboratory Improvement Amendments of 1988 (CLIA), 42 U.S.C. ???263a, to perform high complexity tests. Not Detected: Not detected does not preclude SARS-CoV-2 infection and should not be used as the sole basis for patient management decisions. Not detected results must be combined with clinical observations, patient history, and epidemiological information. Performed By: #### 3 [id number] #### [facility] [address] [facility]. [address] MCHC (RBC) [Mass/Vol] 33.2 g/dL Normal 32.0-35.0 [facility] Comment on above: Order Comment: The A ptima SARS-CoV-2 assay is a nucleic acid amplification test intended for the qualitative detection of RNA from SARS-CoV-2 isolated and purified from nasopharyngeal (FOOTWEAR PRODUCTION MACHINE OPERATOR),oropharyngeal (OP), nasal swab, sputum, and bronchoalveolar lavage (BAL) specimens from patients with signs and symptoms of infection who are suspected of COVID-19. Results are for the identification of SARS-CoV-2 RNA. The SARS-CoV-2 RNA is generally detectable during the acute phase of infection. The Aptima SARS-CoV-2 Assay on the [employer] system is intended for use by laboratory personnel specifically instructed and trained in the operation of the [place] [facility] [place] [employer] system. The Aptima SARS-CoV-2 assay is only for use under the Food and Drug Administration Emergency Use Authorization. Testing is limited to laboratories certified under the Clinical Laboratory Improvement Amendments of 1988 (CLIA), 42 U.S.C. ???263a, to perform high complexity tests. Not Detected: Not detected does not preclude SARS-CoV-2 infection and should not be used as the sole basis for patient management decisions. Not detected results must be combined with clinical observations, patient history, and epidemiological information. Performed By: #### 3 1792 #### [facility] [address] [facility]. [address] MCV (RBC) [Entitic vol] 93.9 fL Normal 82.0-98.0 [facility] Comment on above: Order Comment: The A ptima SARS-CoV-2 assay is a nucleic acid amplification test intended for the qualitative detection of RNA from SARS-CoV-2 isolated and purified from nasopharyngeal (FOOTWEAR PRODUCTION MACHINE OPERATOR),oropharyngeal (OP), nasal swab, sputum, and bronchoalveolar lavage (BAL) specimens from patients with signs and symptoms of infection who are suspected of COVID-19. Results are for the identification of SARS-CoV-2 RNA. The SARS-CoV-2 RNA is generally detectable during the acute phase of infection. The Aptima SARS-CoV-2 Assay on the [place] [employer] [place] [employer] system is intended for use by laboratory personnel specifically instructed and trained in the operation of the [place] [employer] [place] [employer] system. The Aptima SARS-CoV-2 assay is only for use under the Food and Drug Administration Emergency Use Authorization. Testing is limited to laboratories certified under the Clinical Laboratory Improvement Amendments of 1988 (CLIA), 42 U.S.C. ???263a, to perform high complexity tests. Not Detected: Not detected does not preclude SARS-CoV-2 infection and should not be used as the sole basis for patient management decisions. Not detected results must be combined with clinical observations, patient history, and epidemiological information. Performed By: #### 3 [id number] #### [facility] [address] [facility] [address] Nucleated RBC/100 WBC (Bld) [Ratio] 0 % Normal 0-0 [facility] Comment on above: Order Comment: The A ptima SARS-CoV-2 assay is a nucleic acid amplification test intended for the qualitative detection of RNA from SARS-CoV-2 isolated and purified from nasopharyngeal (FOOTWEAR PRODUCTION MACHINE OPERATOR),oropharyngeal (OP), nasal swab, sputum, and bronchoalveolar lavage (BAL) specimens from patients with signs and symptoms of infection who are suspected of COVID-19. Results are for the identification of SARS-CoV-2 RNA. The SARS-CoV-2 RNA is generally detectable during the acute phase of infection. The Aptima SARS-CoV-2 Assay on the [place] [employer] [place] [employer] system is intended for use by laboratory personnel specifically instructed and trained in the operation of the [place] [facility] [place] [employer] system. The Aptima SARS-CoV-2 assay is only for use under the Food and Drug Administration Emergency Use Authorization. Testing is limited to laboratories certified under the Clinical Laboratory Improvement Amendments of 1988 (CLIA), 42 U.S.C. ???263a, to perform high complexity tests. Not Detected: Not detected does not preclude SARS-CoV-2 infection and should not be used as the sole basis for patient management decisions. Not detected results must be combined with clinical observations, patient history, and epidemiological information. Performed By: #### 3 1792 #### [facility] [address] [place] [address], [facility] PLAT CNT 176 10*3/uL Normal 150-400 [facility] Comment on above: Order Comment: The A ptima SARS-CoV-2 assay is a nucleic acid amplification test intended for the qualitative detection of RNA from SARS-CoV-2 isolated and purified from nasopharyngeal (FOOTWEAR PRODUCTION MACHINE OPERATOR),oropharyngeal (OP), nasal swab, sputum, and bronchoalveolar lavage (BAL) specimens from patients with signs and symptoms of infection who are suspected of COVID-19. Results are for the identification of SARS-CoV-2 RNA. The SARS-CoV-2 RNA is generally detectable during the acute phase of infection. The Aptima SARS-CoV-2 Assay on the [place] [employer] [place] [employer] system is intended for use by laboratory personnel specifically instructed and trained in the operation of the [place] [facility] [place] [employer] system. The Aptima SARS-CoV-2 assay is only for use under the Food and Drug Administration Emergency Use Authorization. Testing is limited to laboratories certified under the Clinical Laboratory Improvement Amendments of 1988 (CLIA), 42 U.S.C. ???263a, to perform high complexity tests. Not Detected: Not detected does not preclude SARS-CoV-2 infection and should not be used as the sole basis for patient management decisions. Not detected results must be combined with clinical observations, patient history, and epidemiological information. Performed By: #### 3 [id number] #### [facility] [address] RBC (Bld) [#/Vol] 2.63 10*6/uL Low 4.20-5.70 [facility] Comment on above: Order Comment: The A ptima SARS-CoV-2 assay is a nucleic acid amplification test intended for the qualitative detection of RNA from SARS-CoV-2 isolated and purified from nasopharyngeal (FOOTWEAR PRODUCTION MACHINE OPERATOR),oropharyngeal (OP), nasal swab, sputum, and bronchoalveolar lavage (BAL) specimens from patients with signs and symptoms of infection who are suspected of COVID-19. Results are for the identification of SARS-CoV-2 RNA. The SARS-CoV-2 RNA is generally detectable during the acute phase of infection. The Aptima SARS-CoV-2 Assay on the [place] [employer] [place] [employer] system is intended for use by laboratory personnel specifically instructed and trained in the operation of the [place] [employer] [place] [employer] system. The Aptima SARS-CoV-2 assay is only for use under the Food and Drug Administration Emergency Use Authorization. Testing is limited to laboratories certified under the Clinical Laboratory Improvement Amendments of 1988 (CLIA), 42 U.S.C. ???263a, to perform high complexity tests. Not Detected: Not detected does not preclude SARS-CoV-2 infection and should not be used as the sole basis for patient management decisions. Not detected results must be combined with clinical observations, patient history, and epidemiological information. Performed By: #### 3 [id number] #### [facility] [address] WBC (Bld) [#/Vol] 4.12 10*3/uL Normal 4.00-10.60 [facility] Comment on above: Order Comment: The A ptima SARS-CoV-2 assay is a nucleic acid amplification test intended for the qualitative detection of RNA from SARS-CoV-2 isolated and purified from nasopharyngeal (FOOTWEAR PRODUCTION MACHINE OPERATOR),oropharyngeal (OP), nasal swab, sputum, and bronchoalveolar lavage (BAL) specimens from patients with signs and symptoms of infection who are suspected of COVID-19. Results are for the identification of SARS-CoV-2 RNA. The SARS-CoV-2 RNA is generally detectable during the acute phase of infection. The Aptima SARS-CoV-2 Assay on the [place] [employer] [place] [employer] system is intended for use by laboratory personnel specifically instructed and trained in the operation of the [place] [employer] [place] [employer] system. The Aptima SARS-CoV-2 assay is only for use under the Food and Drug Administration Emergency Use Authorization. Testing is limited to laboratories certified under the Clinical Laboratory Improvement Amendments of 1988 (CLIA), 42 U.S.C. ???263a, to perform high complexity tests. Not Detected: Not detected does not preclude SARS-CoV-2 infection and should not be used as the sole basis for patient management decisions. Not detected results must be combined with clinical observations, patient history, and epidemiological information. Performed By: #### 3 [id number] #### [facility] [address] [facility] [place] [place] [address], [facility] *SARS-CoV-2 COVID-19on 09-23 [id number] Not Detected Normal Not Detected [facility] Comment on above: Order Comment: The A ptima SARS-CoV-2 assay is a nucleic acid amplification testintended for the qualitative detection of RNA from SARS-CoV-2 isolatedand purified from nasopharyngeal (FOOTWEAR PRODUCTION MACHINE OPERATOR),oropharyngeal (OP), nasal swab,sputum, and bronchoalveolar lavage (BAL) specimens from patients withsigns and symptoms of infection who are suspected of COVID-19.Results are for the identification of SARS-CoV-2 RNA. The SARS-CoV-2 RNAis generally detectable during the acute phase of infection.The Aptima SARS-CoV-2 Assay on the [place] [employer] [place] [employer] system isintended for use by laboratory personnel specifically instructed andtrained in the operation of the [place] [employer] [place] [employer] system. TheAptima SARS-CoV-2 assay is only for use under the Food and DrugAdministration Emergency Use Authorization. Testing is limited tolaboratories certified under the Clinical Laboratory ImprovementAmendments of 1988 (CLIA), 42 U.S.C. ???263a, to perform high complexitytests.Not Detected:Not detected does not preclude SARS-CoV-2 infection and should not beused as the sole basis for patient management decisions. Not detectedresults must be combined with clinical observations, patient history,and epidemiological information. Performed By: #### 1 0008 #### [facility] [address] [address], [facility] BASIC METABOLIC PANELon 11-2 0-2020 Calcium [Mass/Vol] 7.7 mg/dL Low 8.6-10.3 [facility] Comment on above: Order Comment: No: D o not add to previous draw Performed By: #### 5 6101 #### [facility] [address] [place] [address], [facility] Chloride [Moles/Vol] 109 mmol/L High 98-107 [facility] Comment on above: Order Comment: No: D o not add to previous draw Performed By: #### 5 6101 #### [facility] [address] [place] [address], [facility] CO2 [Moles/Vol] 20 mmol/L Low 21-31 [facility] Comment on above: Order Comment: No: D o not add to previous draw Performed By: #### 5 6101 #### [facility] [address] [place] [address], [facility] Creatinine [Mass/Vol] 3.95 mg/dL High 0.70-1.30 [facility] Comment on above: Order Comment: No: D o not add to previous draw Performed By: #### 5 6101 #### [facility] [address] [place] [address], [facility] GFR/1.73 sq M predicted among blacks MDRD (S/P/Bld) [Vol rate/Area] 18 ml/min/1.73sq m Abnormal >60 [facility] Comment on above: Order Comment: No: D o not add to previous draw Result Comment: Calc ulation may not be valid for patients over 70 years Performed By: #### 5 [id number] #### [facility] [address] [place] [address], [facility] GFR/1.73 sq M predicted among non-blacks MDRD (S/P/Bld) [Vol rate/Area] 15 ml/min/1.73sq m Abnormal >60 [facility] Comment on above: Order Comment: No: D o not add to previous draw Result Comment: Calc ulation may not be valid for patients over 70 years Performed By: #### 5 6101 #### [facility] [address] [place] [address], [facility] Glucose [Mass/Vol] 86 mg/dL Normal 70-100 [facility] Comment on above: Order Comment: No: D o not add to previous draw Performed By: #### 5 6101 #### [facility] [address] [place] [address], [place] Potassium [Moles/Vol] 4.0 mmol/L Normal 3.5-5.1 [facility] Comment on above: Order Comment: No: D o not add to previous draw Performed By: #### 5 6101 #### [facility] [address] Sodium [Moles/Vol] 135 mmol/L Low 136-145 [facility] Comment on above: Order Comment: No: D o not add to previous draw Performed By: #### 5 6101 #### [facility] [address] [place] [address], [facility] Urea nitrogen [Mass/Vol] 35 mg/dL High 7-25 [facility] Comment on above: Order Comment: No: D o not add to previous draw Performed By: #### 5 6101 #### [facility] [address] CBC COMPLETE BLOOD COUNTon 11-22-2019 Erythrocyte distribution width (RBC) [Ratio] 16.3 % High 11.5-15.0 [facility] Comment on above: Order Comment: No: D o not add to previous draw Performed By: #### 3 0478 #### [facility] [address] Hematocrit (Bld) [Volume fraction] 23.3 % Low 39.0-50.0 [facility] Comment on above: Order Comment: No: D o not add to previous draw Performed By: #### 3 0478 #### [facility] [address] [place] [address], [facility] Hemoglobin (Bld) [Mass/Vol] 7.5 g/dL Low 13.0-17.0 [facility] Comment on above: Order Comment: No: D o not add to previous draw Performed By: #### 3 0478 #### [facility] [address] [place] [address], [facility] MCH (RBC) [Entitic mass] 30.2 pg Normal 27.0-33.0 [facility] Comment on above: Order Comment: No: D o not add to previous draw Performed By: #### 3 0478 #### [facility] [address] [place] [address], [facility] MCHC (RBC) [Mass/Vol] 32.2 g/dL Normal 32.0-35.0 [facility] Comment on above: Order Comment: No: D o not add to previous draw Performed By: #### 3 0478 #### [facility] [address] [place] [address], [facility] MCV (RBC) [Entitic vol] 94.0 fL Normal 82.0-98.0 [facility] Comment on above: Order Comment: No: D o not add to previous draw Performed By: #### 3 0478 #### [facility] [address] [place] [id number], [facility] Nucleated RBC/100 WBC (Bld) [Ratio] 0 % Normal 0-0 [facility] Comment on above: Order Comment: No: D o not add to previous draw Performed By: #### 3 0478 #### [facility] [address] [place] [address], [place] PLAT CNT 156 10*3/uL Normal 150-400 [facility] Comment on above: Order Comment: No: D o not add to previous draw Performed By: #### 3 0478 #### [facility] [address] [place] [address], [facility] RBC (Bld) [#/Vol] 2.48 10*6/uL Low 4.20-5.70 [facility] Comment on above: Order Comment: No: D o not add to previous draw Performed By: #### 3 0478 #### [facility] [address] [place] [address], [place] WBC (Bld) [#/Vol] 4.20 10*3/uL Normal 4.00-10.60 [facility] Comment on above: Order Comment: No: D o not add to previous draw Performed By: #### 3 0478 #### [facility] [address] [place] [address], [facility] MAGNESIUM BLOODon 09-22-2020 Magnesium [Mass/Vol] 1.2 mg/dL Low 1.9-2.7 [facility] Comment on above: Order Comment: No: D o not add to previous draw Performed By: #### 5 6101 #### [facility] [address] [place] [address], [facility] PHOSPHORUS BLOODon 0 Phosphate [Mass/Vol] 2.6 mg/dL Normal 2.5-5.0 [facility] Comment on above: Order Comment: No: D o not add to previous draw Performed By: #### 5 6101 #### [facility] [address] [place] [address], [facility] BASIC METABOLIC PANELon 09-03 Calcium [Mass/Vol] 7.9 mg/dL Low 8.6-10.3 [facility] Comment on above: Order Comment: No: D o not add to previous draw Performed By: #### 5 0608 #### [facility] [address] [place] [address], [facility] Chloride [Moles/Vol] 110 mmol/L High 98-107 [facility] Comment on above: Order Comment: No: D o not add to previous draw Performed By: #### 5 0608 #### [facility] [address] [place] [address], [facility] CO2 [Moles/Vol] 21 mmol/L Normal 21-31 [facility] Comment on above: Order Comment: No: D o not add to previous draw Performed By: #### 5 0608 #### [facility] [address] [place] [id number], [facility] Creatinine [Mass/Vol] 3.98 mg/dL High 0.70-1.30 [facility] Comment on above: Order Comment: No: D o not add to previous draw Performed By: #### 5 0608 #### [facility] [address] [place] [address], [place] GFR/1.73 sq M predicted among blacks MDRD (S/P/Bld) [Vol rate/Area] 18 ml/min/1.73sq m Abnormal >60 [facility] Comment on above: Order Comment: No: D o not add to previous draw Result Comment: Calc ulation may not be valid for patients over 70 years Performed By: #### 5 0608 #### [facility] [address] [place] [address], [place] GFR/1.73 sq M predicted among non-blacks MDRD (S/P/Bld) [Vol rate/Area] 15 ml/min/1.73sq m Abnormal >60 [facility] Comment on above: Order Comment: No: D o not add to previous draw Result Comment: Calc ulation may not be valid for patients over 70 years Performed By: #### 5 0608 #### [facility] [address] [place] [address], [place] Glucose [Mass/Vol] 85 mg/dL Normal 70-100 [facility] Comment on above: Order Comment: No: D o not add to previous draw Performed By: #### 5 0608 #### [facility] [address] [place] [address], [place] Potassium [Moles/Vol] 4.1 mmol/L Normal 3.5-5.1 [facility] Comment on above: Order Comment: No: D o not add to previous draw Performed By: #### 5 0608 #### [facility] [address] [place] [address], [place] Sodium [Moles/Vol] 137 mmol/L Normal 136-145 [facility] Comment on above: Order Comment: No: D o not add to previous draw Performed By: #### 5 0608 #### [facility] [address] [place] [address], [place] Urea nitrogen [Mass/Vol] 33 mg/dL High 7-25 [facility] Comment on above: Order Comment: No: D o not add to previous draw Performed By: #### 5 0608 #### [facility] [address] [facility] [address] CBC COMPLETE BLOOD COUNTon 11-21-2019 Erythrocyte distribution width (RBC) [Ratio] 15.0 % Normal 11.5-15.0 [facility] Comment on above: Order Comment: The A ptima SARS-CoV-2 assay is a nucleic acid amplification test intended for the qualitative detection of RNA from SARS-CoV-2 isolated and purified from nasopharyngeal ([employer]OTWEAR PRODUCTION MACHINE OPERATOR),oropharyngeal (OP), nasal swab, sputum, and bronchoalveolar lavage (BAL) specimens from patients with signs and symptoms of infection who are suspected of COVID-19. Results are for the identification of SARS-CoV-2 RNA. The SARS-CoV-2 RNA is generally detectable during the acute phase of infection. The Aptima SARS-CoV-2 Assay on the [employer] system is intended for use by laboratory personnel specifically instructed and trained in the operation of the [employer] system. The Aptima SARS-CoV-2 assay is only for use under the Food and Drug Administration Emergency Use Authorization. Testing is limited to laboratories certified under the Clinical Laboratory Improvement Amendments of 1988 (CLIA), 42 U.S.C. ???263a, to perform high complexity tests. Not Detected: Not detected does not preclude SARS-CoV-2 infection and should not be used as the sole basis for patient management decisions. Not detected results must be combined with clinical observations, patient history, and epidemiological information. Performed By: #### 3 1792 #### [facility] [address] [facility]. [address] Hematocrit (Bld) [Volume fraction] 20.8 % Low 39.0-50.0 [facility] Comment on above: Order Comment: The A ptima SARS-CoV-2 assay is a nucleic acid amplification test intended for the qualitative detection of RNA from SARS-CoV-2 isolated and purified from nasopharyngeal (FOOTWEAR PRODUCTION MACHINE OPERATOR),oropharyngeal (OP), nasal swab, sputum, and bronchoalveolar lavage (BAL) specimens from patients with signs and symptoms of infection who are suspected of COVID-19. Results are for the identification of SARS-CoV-2 RNA. The SARS-CoV-2 RNA is generally detectable during the acute phase of infection. The Aptima SARS-CoV-2 Assay on the [place] [employer] [place] [employer] system is intended for use by laboratory personnel specifically instructed and trained in the operation of the [place] [employer] [place] [employer] system. The Aptima SARS-CoV-2 assay is only for use under the Food and Drug Administration Emergency Use Authorization. Testing is limited to laboratories certified under the Clinical Laboratory Improvement Amendments of 1988 (CLIA), 42 U.S.C. ???263a, to perform high complexity tests. Not Detected: Not detected does not preclude SARS-CoV-2 infection and should not be used as the sole basis for patient management decisions. Not detected results must be combined with clinical observations, patient history, and epidemiological information. Performed By: #### 3 1792 #### [address] Hemoglobin (Bld) [Mass/Vol] 6.8 g/dL Low 13.0-17.0 [facility] Comment on above: Order Comment: The A ptima SARS-CoV-2 assay is a nucleic acid amplification test intended for the qualitative detection of RNA from SARS-CoV-2 isolated and purified from nasopharyngeal (FOOTWEAR PRODUCTION MACHINE OPERATOR),oropharyngeal (OP), nasal swab, sputum, and bronchoalveolar lavage (BAL) specimens from patients with signs and symptoms of infection who are suspected of COVID-19. Results are for the identification of SARS-CoV-2 RNA. The SARS-CoV-2 RNA is generally detectable during the acute phase of infection. The Aptima SARS-CoV-2 Assay on the [place] [employer] [place] [employer] system is intended for use by laboratory personnel specifically instructed and trained in the operation of the [place] [employer] [place] [employer] system. The Aptima SARS-CoV-2 assay is only for use under the Food and Drug Administration Emergency Use Authorization. Testing is limited to laboratories certified under the Clinical Laboratory Improvement Amendments of 1988 (CLIA), 42 U.S.C. ???263a, to perform high complexity tests. Not Detected: Not detected does not preclude SARS-CoV-2 infection and should not be used as the sole basis for patient management decisions. Not detected results must be combined with clinical observations, patient history, and epidemiological information. Performed By: #### 3 1792 #### [facility] [address] MCH (RBC) [Entitic mass] 31.2 pg Normal 27.0-33.0 [facility] Comment on above: Order Comment: The A ptima SARS-CoV-2 assay is a nucleic acid amplification test intended for the qualitative detection of RNA from SARS-CoV-2 isolated and purified from nasopharyngeal (FOOTWEAR PRODUCTION MACHINE OPERATOR),oropharyngeal (OP), nasal swab, sputum, and bronchoalveolar lavage (BAL) specimens from patients with signs and symptoms of infection who are suspected of COVID-19. Results are for the identification of SARS-CoV-2 RNA. The SARS-CoV-2 RNA is generally detectable during the acute phase of infection. The Aptima SARS-CoV-2 Assay on the [employer] system is intended for use by laboratory personnel specifically instructed and trained in the operation of the [place] [employer] system. The Aptima SARS-CoV-2 assay is only for use under the Food and Drug Administration Emergency Use Authorization. Testing is limited to laboratories certified under the Clinical Laboratory Improvement Amendments of 1988 (CLIA), 42 U.S.C. ???263a, to perform high complexity tests. Not Detected: Not detected does not preclude SARS-CoV-2 infection and should not be used as the sole basis for patient management decisions. Not detected results must be combined with clinical observations, patient history, and epidemiological information. Performed By: #### 3 1792 #### [facility] [address] [place] [address], [facility] MCHC (RBC) [Mass/Vol] 32.7 g/dL Normal 32.0-35.0 [facility] Comment on above: Order Comment: The A ptima SARS-CoV-2 assay is a nucleic acid amplification test intended for the qualitative detection of RNA from SARS-CoV-2 isolated and purified from nasopharyngeal ([employer]OTWEAR PRODUCTION MACHINE OPERATOR),oropharyngeal (OP), nasal swab, sputum, and bronchoalveolar lavage (BAL) specimens from patients with signs and symptoms of infection who are suspected of COVID-19. Results are for the identification of SARS-CoV-2 RNA. The SARS-CoV-2 RNA is generally detectable during the acute phase of infection. The Aptima SARS-CoV-2 Assay on the [place] [employer] [place] [employer] system is intended for use by laboratory personnel specifically instructed and trained in the operation of the [place] [employer] [place] [employer] system. The Aptima SARS-CoV-2 assay is only for use under the Food and Drug Administration Emergency Use Authorization. Testing is limited to laboratories certified under the Clinical Laboratory Improvement Amendments of 1988 (CLIA), 42 U.S.C. ???263a, to perform high complexity tests. Not Detected: Not detected does not preclude SARS-CoV-2 infection and should not be used as the sole basis for patient management decisions. Not detected results must be combined with clinical observations, patient history, and epidemiological information. Performed By: #### 3 1792 #### [facility] [address] [facility] [place] [address], [facility] MCV (RBC) [Entitic vol] 95.4 fL Normal 82.0-98.0 [facility] Comment on above: Order Comment: The A ptima SARS-CoV-2 assay is a nucleic acid amplification test intended for the qualitative detection of RNA from SARS-CoV-2 isolated and purified from nasopharyngeal ([employer]OTWEAR PRODUCTION MACHINE OPERATOR),oropharyngeal (OP), nasal swab, sputum, and bronchoalveolar lavage (BAL) specimens from patients with signs and symptoms of infection who are suspected of COVID-19. Results are for the identification of SARS-CoV-2 RNA. The SARS-CoV-2 RNA is generally detectable during the acute phase of infection. The Aptima SARS-CoV-2 Assay on the [place] [employer] [place] [employer] system is intended for use by laboratory personnel specifically instructed and trained in the operation of the [place] [employer] [place] [employer] system. The Aptima SARS-CoV-2 assay is only for use under the Food and Drug Administration Emergency Use Authorization. Testing is limited to laboratories certified under the Clinical Laboratory Improvement Amendments of 1988 (CLIA), 42 U.S.C. ???263a, to perform high complexity tests. Not Detected: Not detected does not preclude SARS-CoV-2 infection and should not be used as the sole basis for patient management decisions. Not detected results must be combined with clinical observations, patient history, and epidemiological information. Performed By: #### 3 1792 #### [facility] [address] [facility]. [address] Nucleated RBC/100 WBC (Bld) [Ratio] 0 % Normal 0-0 [facility] Comment on above: Order Comment: The A ptima SARS-CoV-2 assay is a nucleic acid amplification test intended for the qualitative detection of RNA from SARS-CoV-2 isolated and purified from nasopharyngeal (FOOTWEAR PRODUCTION MACHINE OPERATOR),oropharyngeal (OP), nasal swab, sputum, and bronchoalveolar lavage (BAL) specimens from patients with signs and symptoms of infection who are suspected of COVID-19. Results are for the identification of SARS-CoV-2 RNA. The SARS-CoV-2 RNA is generally detectable during the acute phase of infection. The Aptima SARS-CoV-2 Assay on the [employer] system is intended for use by laboratory personnel specifically instructed and trained in the operation of the [place] [employer] system. The Aptima SARS-CoV-2 assay is only for use under the Food and Drug Administration Emergency Use Authorization. Testing is limited to laboratories certified under the Clinical Laboratory Improvement Amendments of 1988 (CLIA), 42 U.S.C. ???263a, to perform high complexity tests. Not Detected: Not detected does not preclude SARS-CoV-2 infection and should not be used as the sole basis for patient management decisions. Not detected results must be combined with clinical observations, patient history, and epidemiological information. Performed By: #### 3 1792 #### [facility] [address] [facility] [place] [address], [facility] PLAT CNT 157 10*3/uL Normal 150-400 [facility] Comment on above: Order Comment: The A ptima SARS-CoV-2 assay is a nucleic acid amplification test intended for the qualitative detection of RNA from SARS-CoV-2 isolated and purified from nasopharyngeal (FOOTWEAR PRODUCTION MACHINE OPERATOR),oropharyngeal (OP), nasal swab, sputum, and bronchoalveolar lavage (BAL) specimens from patients with signs and symptoms of infection who are suspected of COVID-19. Results are for the identification of SARS-CoV-2 RNA. The SARS-CoV-2 RNA is generally detectable during the acute phase of infection. The Aptima SARS-CoV-2 Assay on the [place] [employer] [place] [employer] system is intended for use by laboratory personnel specifically instructed and trained in the operation of the [place] [employer] [place] [employer] system. The Aptima SARS-CoV-2 assay is only for use under the Food and Drug Administration Emergency Use Authorization. Testing is limited to laboratories certified under the Clinical Laboratory Improvement Amendments of 1988 (CLIA), 42 U.S.C. ???263a, to perform high complexity tests. Not Detected: Not detected does not preclude SARS-CoV-2 infection and should not be used as the sole basis for patient management decisions. Not detected results must be combined with clinical observations, patient history, and epidemiological information. Performed By: #### 3 1792 #### [facility] [address] [facility] [place] [address], [facility] RBC (Bld) [#/Vol] 2.18 10*6/uL Low 4.20-5.70 [facility] Comment on above: Order Comment: The A ptima SARS-CoV-2 assay is a nucleic acid amplification test intended for the qualitative detection of RNA from SARS-CoV-2 isolated and purified from nasopharyngeal (FOOTWEAR PRODUCTION MACHINE OPERATOR),oropharyngeal (OP), nasal swab, sputum, and bronchoalveolar lavage (BAL) specimens from patients with signs and symptoms of infection who are suspected of COVID-19. Results are for the identification of SARS-CoV-2 RNA. The SARS-CoV-2 RNA is generally detectable during the acute phase of infection. The Aptima SARS-CoV-2 Assay on the [place] [employer] [place] [employer] system is intended for use by laboratory personnel specifically instructed and trained in the operation of the [place] [employer] [place] [employer] system. The Aptima SARS-CoV-2 assay is only for use under the Food and Drug Administration Emergency Use Authorization. Testing is limited to laboratories certified under the Clinical Laboratory Improvement Amendments of 1988 (CLIA), 42 U.S.C. ???263a, to perform high complexity tests. Not Detected: Not detected does not preclude SARS-CoV-2 infection and should not be used as the sole basis for patient management decisions. Not detected results must be combined with clinical observations, patient history, and epidemiological information. Performed By: #### 3 1792 #### [facility] [address] WBC (Bld) [#/Vol] 3.58 10*3/uL Low 4.00-10.60 [facility] Comment on above: Order Comment: The A ptima SARS-CoV-2 assay is a nucleic acid amplification test intended for the qualitative detection of RNA from SARS-CoV-2 isolated and purified from nasopharyngeal (FOOTWEAR PRODUCTION MACHINE OPERATOR),oropharyngeal (OP), nasal swab, sputum, and bronchoalveolar lavage (BAL) specimens from patients with signs and symptoms of infection who are suspected of COVID-19. Results are for the identification of SARS-CoV-2 RNA. The SARS-CoV-2 RNA is generally detectable during the acute phase of infection. The Aptima SARS-CoV-2 Assay on the [employer] system is intended for use by laboratory personnel specifically instructed and trained in the operation of the [employer] system. The Aptima SARS-CoV-2 assay is only for use under the Food and Drug Administration Emergency Use Authorization. Testing is limited to laboratories certified under the Clinical Laboratory Improvement Amendments of 1988 (CLIA), 42 U.S.C. ???263a, to perform high complexity tests. Not Detected: Not detected does not preclude SARS-CoV-2 infection and should not be used as the sole basis for patient management decisions. Not detected results must be combined with clinical observations, patient history, and epidemiological information. Performed By: #### 3 1792 #### [facility] [address] HEMATOCRITon 09-21-2020 Hematocrit (Bld) [Volume fraction] 24.2 % Low 39.0-50.0 [facility] Comment on above: Order Comment: The A ptima SARS-CoV-2 assay is a nucleic acid amplification test intended for the qualitative detection of RNA from SARS-CoV-2 isolated and purified from nasopharyngeal ([employer]OTWEAR [employer]ODUCTION MACHINE OPERATOR),oropharyngeal (OP), nasal swab, sputum, and bronchoalveolar lavage (BAL) specimens from patients with signs and symptoms of infection who are suspected of COVID-19. Results are for the identification of SARS-CoV-2 RNA. The SARS-CoV-2 RNA is generally detectable during the acute phase of infection. The Aptima SARS-CoV-2 Assay on the [employer] system is intended for use by laboratory personnel specifically instructed and trained in the operation of the [place] [employer] [place] [employer] system. The Aptima SARS-CoV-2 assay is only for use under the Food and Drug Administration Emergency Use Authorization. Testing is limited to laboratories certified under the Clinical Laboratory Improvement Amendments of 1988 (CLIA), 42 U.S.C. ???263a, to perform high complexity tests. Not Detected: Not detected does not preclude SARS-CoV-2 infection and should not be used as the sole basis for patient management decisions. Not detected results must be combined with clinical observations, patient history, and epidemiological information. Performed By: #### 3 1792 #### [facility]. [address] HEMOGLOBINon 09-21-2020 Hemoglobin (Bld) [Mass/Vol] 7.8 g/dL Low 13.0-17.0 [facility] Comment on above: Order Comment: The A ptima SARS-CoV-2 assay is a nucleic acid amplification test intended for the qualitative detection of RNA from SARS-CoV-2 isolated and purified from nasopharyngeal (FOOTWEAR PRODUCTION MACHINE OPERATOR),oropharyngeal (OP), nasal swab, sputum, and bronchoalveolar lavage (BAL) specimens from patients with signs and symptoms of infection who are suspected of COVID-19. Results are for the identification of SARS-CoV-2 RNA. The SARS-CoV-2 RNA is generally detectable during the acute phase of infection. The Aptima SARS-CoV-2 Assay on the [place] [employer] [place] [employer] system is intended for use by laboratory personnel specifically instructed and trained in the operation of the [place] [employer] [place] [employer] system. The Aptima SARS-CoV-2 assay is only for use under the Food and Drug Administration Emergency Use Authorization. Testing is limited to laboratories certified under the Clinical Laboratory Improvement Amendments of 1988 (CLIA), 42 U.S.C. ???263a, to perform high complexity tests. Not Detected: Not detected does not preclude SARS-CoV-2 infection and should not be used as the sole basis for patient management decisions. Not detected results must be combined with clinical observations, patient history, and epidemiological information. Performed By: #### 3 1792 #### [facility] [place] [address], [facility] PROTHROMBIN TIMEon 0 INR Coag (PPP) [Relative time] 1.09 {INR} Normal 0.91-1.16 [facility] Comment on above: Order Comment: No: D o not add to previous draw Result Comment: ACCC P RECOMMENDED INR FOR WARFARIN THERAPY --------- ------- CONDITION INR PROPHYLAXIS OF VENOUS THROMBOSIS 2-3 (HIGH-RISK SURGERY) TREATMENT OF VENOUS THROMBOSIS 2-3 TREATMENT OF PULMONARY EMBOLISM 2-3 PREVENTION OF SYSTEMIC EMBOLISM: 2-3 ACUTE MYOCARDIAL INFARCTION TISSUE HEART VALVES VALVULAR HEART DISEASE ATRIAL FIBRILLATION RECURRENT SYSTEMIC EMBOLISM MECHANICAL HEART VALVE 2.5-3.5 FROM: ORAL ANTICOAGULANTS. MECHANISM OF ACTION, CLINICAL EFFECTIVENESS, AND OPTIMAL THERAPEUTIC RANGE. CHEST 1995;108:231S-246S. Performed By: #### 5 6101 #### [facility] [address] PT Coag (PPP) [Time] 14.1 s Normal 12.3-14.8 [facility] Comment on above: Order Comment: No: D o not add to previous draw Result Comment: ALL RESULTS MUST BE INTERPRETED WITH RESPECT TO BLOOD DRAWING ARTIFACT OR DILUTION ERROR OF ANTICOAGULANT AT THE TIME OF SAMPLING. Performed By: #### 5 6101 #### [facility] [address] [facility] [place] [address], [facility] RBC'S 1 UNITon 09-21-2020 CROSSMATCH INTERP 1 COMP Normal [facility] Comment on above: Order Comment: [place] nephrosis, please assess for hydronephrosis resolution Performed By: #### 8 6001 ####[facility] [place] [address], [facility] PRODUCT CODE 1 E0336 Normal [facility] Comment on above: Order Comment: [place] nephrosis, please assess for hydronephrosis resolution Performed By: #### 8 6001 ####[facility] [place] [address], [facility] PRODUCT STATUS 1 PT Normal [facility] Comment on above: Order Comment: [place] nephrosis, please assess for hydronephrosis resolution Result Comment: Resu lt changed by IF on 09/21/2020 11:17. The previous value was XM. Result changed by IF on 09/22/2020 00:30. The previous value was IS. Performed By: #### 8 6001 ####[facility] [place] [address], [place] UNIT ABO 1 A Normal [facility] Comment on above: Order Comment: [place] nephrosis, please assess for hydronephrosis resolution Performed By: #### 8 6001 ####[facility] [place] [address], [place] UNIT ID 1 [id number] Normal [facility] Comment on above: Order Comment: [place] nephrosis, please assess for hydronephrosis resolution Performed By: #### 8 6001 ####[facility] [place] [address], [place] UNIT RH 1 Positive Normal [facility] Comment on above: Order Comment: [place] nephrosis, please assess for hydronephrosis resolution Performed By: #### 8 6001 ####[facility] [place] [address], [place] TYPE AND SCREENon 09-21-2020 ABO INTERPRETATION A Normal [facility] Comment on above: Performed By: #### 6 2586 ####[facility] [place] [address], [place] RH INTERPRETATION Positive Normal [facility] Comment on above: Performed By: #### 6 2586 ####[facility] *SARS-CoV-2 COVID-19on 09-20 [id number] Not Detected Normal Not Detected [facility] Comment on above: Order Comment: The A ptima SARS-CoV-2 assay is a nucleic acid amplification testintended for the qualitative detection of RNA from SARS-CoV-2 isolatedand purified from nasopharyngeal (FOOTWEAR PRODUCTION MACHINE OPERATOR),oropharyngeal (OP), nasal swab,sputum, and bronchoalveolar lavage (BAL) specimens from patients withsigns and symptoms of infection who are suspected of COVID-19.Results are for the identification of SARS-CoV-2 RNA. The SARS-CoV-2 RNAis generally detectable during the acute phase of infection.The Aptima SARS-CoV-2 Assay on the [place] [employer] [place] [employer] system isintended for use by laboratory personnel specifically instructed andtrained in the operation of the [place] [employer] [place] [employer] system. TheAptima SARS-CoV-2 assay is only for use under the Food and DrugAdministration Emergency Use Authorization. Testing is limited tolaboratories certified under the Clinical Laboratory ImprovementAmendments of 1988 (CLIA), 42 U.S.C. ???263a, to perform high complexitytests.Not Detected:Not detected does not preclude SARS-CoV-2 infection and should not beused as the sole basis for patient management decisions. Not detectedresults must be combined with clinical observations, patient history,and epidemiological information. Performed By: #### 1 0008 #### [facility] [address] BASIC METABOLIC PANELon 09-03 Calcium [Mass/Vol] 8.1 mg/dL Low 8.6-10.3 [facility] Comment on above: Order Comment: No: D o not add to previous draw Performed By: #### 5 0608 #### [facility] [address] Chloride [Moles/Vol] 110 mmol/L High 98-107 [facility] Comment on above: Order Comment: No: D o not add to previous draw Performed By: #### 5 0608 #### [facility] [address] [place] [address], [place] CO2 [Moles/Vol] 21 mmol/L Normal 21-31 [facility] Comment on above: Order Comment: No: D o not add to previous draw Performed By: #### 5 0608 #### [facility] [address] [place] [address], [place] Creatinine [Mass/Vol] 4.19 mg/dL High 0.70-1.30 [facility] Comment on above: Order Comment: No: D o not add to previous draw Performed By: #### 5 0608 #### [facility] [address] [place] [address], [facility] GFR/1.73 sq M predicted among blacks MDRD (S/P/Bld) [Vol rate/Area] 17 ml/min/1.73sq m Abnormal >60 [facility] Comment on above: Order Comment: No: D o not add to previous draw Result Comment: Calc ulation may not be valid for patients over 70 years Performed By: #### 5 0608 #### [facility] [address] [place] [address], [facility] GFR/1.73 sq M predicted among non-blacks MDRD (S/P/Bld) [Vol rate/Area] 14 ml/min/1.73sq m Abnormal >60 [facility] Comment on above: Order Comment: No: D o not add to previous draw Result Comment: Calc ulation may not be valid for patients over 70 years Performed By: #### 5 0608 #### [facility] [address] [place] [address], [place] Glucose [Mass/Vol] 94 mg/dL Normal 70-100 [facility] Comment on above: Order Comment: No: D o not add to previous draw Performed By: #### 5 0608 #### [facility] [address] Potassium [Moles/Vol] 4.4 mmol/L Normal 3.5-5.1 [facility] Comment on above: Order Comment: No: D o not add to previous draw Performed By: #### 5 0608 #### [facility] [address] Sodium [Moles/Vol] 137 mmol/L Normal 136-145 [facility] Comment on above: Order Comment: No: D o not add to previous draw Performed By: #### 5 0608 #### [facility] [address] Urea nitrogen [Mass/Vol] 38 mg/dL High 7-25 [facility] Comment on above: Order Comment: No: D o not add to previous draw Performed By: #### 5 0608 #### [facility] [address] CBC W/DIFFon 09-20-2020 ABS BASOPHILS 0.0 10*3/uL Normal 0.0-0.2 [facility] Comment on above: Performed By: #### 3 1791 #### [facility] [address] [place] [address], [facility] ABS IMM GRANS 0.0 10*3/uL Normal 0.0-0.2 [facility] Comment on above: Performed By: #### 3 1791 #### [facility] [address] ABS NEUTROPHILS 2.3 10*3/uL Normal 1.6-7.6 [facility] Comment on above: Performed By: #### 3 1791 #### [facility] [address] [place] [address], [facility] Basophils/100 WBC (Bld) 0.3 % Normal 0.0-1.0 [facility] Comment on above: Performed By: #### 3 1791 #### [facility] [address] [facility]. [address] Eosinophils (Bld) [#/Vol] 0.0 10*3/uL Normal 0.0-0.5 [facility] Comment on above: Performed By: #### 3 1791 #### [facility] [address] [facility] [place] [address], [facility] Eosinophils/100 WBC (Bld) 0.8 % Normal 0.0-6.0 [facility] Comment on above: Performed By: #### 3 1791 #### [facility] [address] Erythrocyte distribution width (RBC) [Ratio] 15.4 % High 11.5-15.0 [facility] Comment on above: Performed By: #### 3 1791 #### [facility] [address] Hematocrit (Bld) [Volume fraction] 21.1 % Low 39.0-50.0 [facility] Comment on above: Performed By: #### 3 1791 #### [facility] [address] Hemoglobin (Bld) [Mass/Vol] 7.1 g/dL Low 13.0-17.0 [facility] Comment on above: Performed By: #### 3 1791 #### [facility] [address] [facility]. [address] IMMATURE GRANS 0.5 % Normal 0.0-1.0 [facility] Comment on above: Performed By: #### 3 1791 #### [facility] [address] [place] [address], [facility] Lymphocytes (Bld) [#/Vol] 1.2 10*3/uL Normal 1.2-4.0 [facility] Comment on above: Performed By: #### 3 1791 #### [facility] [address] [place] [address], [facility] Lymphocytes/100 WBC (Bld) 29.6 % Normal 20.0-45.0 [facility] Comment on above: Performed By: #### 3 1791 #### [facility] [address] [place] [id number], [facility] MCH (RBC) [Entitic mass] 31.7 pg Normal 27.0-33.0 [facility] Comment on above: Performed By: #### 3 1791 #### [facility] [address] [facility] [place] [address], [facility] MCHC (RBC) [Mass/Vol] 33.6 g/dL Normal 32.0-35.0 [facility] Comment on above: Performed By: #### 3 1791 #### [facility] [address] [place] [address], [facility] MCV (RBC) [Entitic vol] 94.2 fL Normal 82.0-98.0 [facility] Comment on above: Performed By: #### 3 1791 #### [facility] [address] [facility] [place] [address], [facility] Monocytes (Bld) [#/Vol] 0.4 10*3/uL Normal 0.1-1.0 [facility] Comment on above: Performed By: #### 3 1791 #### [facility] [address] [facility] [place] [address], [facility] MONOS 10.5 % Normal 5.0-12.0 [facility] Comment on above: Performed By: #### 3 1791 #### [facility] [address] [facility] [place] [address], [facility] Neutrophils/100 WBC (Bld) 58.3 % Normal 40.0-72.0 [facility] Comment on above: Performed By: #### 3 1791 #### [facility] [address] Nucleated RBC/100 WBC (Bld) [Ratio] 0 % Normal 0-0 [facility] Comment on above: Performed By: #### 3 1792 #### [facility] [address] [place] [address], [facility] PLAT CNT 160 10*3/uL Normal 150-400 [facility] Comment on above: Performed By: #### 3 1792 #### [facility] 3000 [place] [address], [facility] RBC (Bld) [#/Vol] 2.24 10*6/uL Low 4.20-5.70 [facility] Comment on above: Performed By: #### 3 1792 #### [facility] [address] [place] [address], [facility] WBC (Bld) [#/Vol] 3.92 10*3/uL Low 4.00-10.60 [facility] Comment on above: Performed By: #### 3 1792 #### [facility] [address] CBC COMPLETE BLOOD COUNTon 11-19-2019 Erythrocyte distribution width (RBC) [Ratio] 15.3 % High 11.5-15.0 [facility] Comment on above: Order Comment: No: D o not add to previous draw Performed By: #### 3 0478 #### [facility] [address] Hematocrit (Bld) [Volume fraction] 23.3 % Low 39.0-50.0 [facility] Comment on above: Order Comment: No: D o not add to previous draw Performed By: #### 3 0478 #### [facility] [address] [place] [address], [facility] Hemoglobin (Bld) [Mass/Vol] 7.8 g/dL Low 13.0-17.0 [facility] Comment on above: Order Comment: No: D o not add to previous draw Performed By: #### 3 0478 #### [facility] [address] MCH (RBC) [Entitic mass] 31.3 pg Normal 27.0-33.0 [facility] Comment on above: Order Comment: No: D o not add to previous draw Performed By: #### 3 0478 #### [facility] [address] MCHC (RBC) [Mass/Vol] 33.5 g/dL Normal 32.0-35.0 [facility] Comment on above: Order Comment: No: D o not add to previous draw Performed By: #### 3 0478 #### [facility] [address] [facility] [address] MCV (RBC) [Entitic vol] 93.6 fL Normal 82.0-98.0 [facility] Comment on above: Order Comment: No: D o not add to previous draw Performed By: #### 3 0478 #### [facility] [address] Nucleated RBC/100 WBC (Bld) [Ratio] 0 % Normal 0-0 [facility] Comment on above: Order Comment: No: D o not add to previous draw Performed By: #### 3 0478 #### [facility] [address] [facility] [place] [address], [facility] PLAT CNT 174 10*3/uL Normal 150-400 [facility] Comment on above: Order Comment: No: D o not add to previous draw Performed By: #### 3 0478 #### [facility] [address] RBC (Bld) [#/Vol] 2.49 10*6/uL Low 4.20-5.70 [facility] Comment on above: Order Comment: No: D o not add to previous draw Performed By: #### 3 0478 #### [facility] [address] [place] [address], [facility] WBC (Bld) [#/Vol] 5.25 10*3/uL Normal 4.00-10.60 [facility] Comment on above: Order Comment: No: D o not add to previous draw Performed By: #### 3 0478 #### [facility] [address] [place] [address], [facility] COMP METABOLIC PANELon 09-19 Albumin [Mass/Vol] 3.1 g/dL Low 3.5-5.7 [facility] Comment on above: Order Comment: No: D o not add to previous draw Performed By: #### 5 0608 #### [facility] [address] [place] [address], [facility] ALKALINE PHOSPH 20 IU/L Low 34-104 [facility] Comment on above: Order Comment: No: D o not add to previous draw Performed By: #### 5 0608 #### [facility] [address] [place] [address], [facility] ALT [Catalytic activity/Vol] 7 U/L Normal 7-52 [facility] Comment on above: Order Comment: No: D o not add to previous draw Performed By: #### 5 0608 #### [facility] [address] [place] [address], [facility] AST [Catalytic activity/Vol] 10 U/L Low 13-39 [facility] Comment on above: Order Comment: No: D o not add to previous draw Performed By: #### 5 0608 #### [facility] [address] [place] [id number], [facility] Bilirubin [Mass/Vol] 0.4 mg/dL Normal 0.3-1.0 [facility] Comment on above: Order Comment: No: D o not add to previous draw Performed By: #### 5 0608 #### [facility] [address] [place] [id number], [facility] Calcium [Mass/Vol] 8.2 mg/dL Low 8.6-10.3 [facility] Comment on above: Order Comment: No: D o not add to previous draw Performed By: #### 5 0608 #### [facility] [address] [place] [address], [place] Chloride [Moles/Vol] 108 mmol/L High 98-107 [facility] Comment on above: Order Comment: No: D o not add to previous draw Performed By: #### 5 0608 #### [facility] [address] [place] [address], [facility] CO2 [Moles/Vol] 20 mmol/L Low 21-31 [facility] Comment on above: Order Comment: No: D o not add to previous draw Performed By: #### 5 0608 #### [facility] [address] [place] [address], [facility] Creatinine [Mass/Vol] 4.29 mg/dL High 0.70-1.30 [facility] Comment on above: Order Comment: No: D o not add to previous draw Performed By: #### 5 0608 #### [facility] [address] [place] [address], [facility] GFR/1.73 sq M predicted among blacks MDRD (S/P/Bld) [Vol rate/Area] 16 ml/min/1.73sq m Abnormal >60 [facility] Comment on above: Order Comment: No: D o not add to previous draw Result Comment: Calc ulation may not be valid for patients over 70 years Performed By: #### 5 0608 #### [facility] [address] [place] [id number], [facility] GFR/1.73 sq M predicted among non-blacks MDRD (S/P/Bld) [Vol rate/Area] 14 ml/min/1.73sq m Abnormal >60 [facility] Comment on above: Order Comment: No: D o not add to previous draw Result Comment: Calc ulation may not be valid for patients over 70 years Performed By: #### 5 0608 #### [facility] [address] [place] [address], [place] Glucose [Mass/Vol] 93 mg/dL Normal 70-100 [facility] Comment on above: Order Comment: No: D o not add to previous draw Performed By: #### 5 0608 #### [facility] [address] [place] [address], [facility] Potassium [Moles/Vol] 4.1 mmol/L Normal 3.5-5.1 [facility] Comment on above: Order Comment: No: D o not add to previous draw Performed By: #### 5 0608 #### [facility] [address] [place] [address], [facility] Protein [Mass/Vol] 5.4 g/dL Low 6.0-8.3 [facility] Comment on above: Order Comment: No: D o not add to previous draw Performed By: #### 5 0608 #### [facility] [address] [place] [address], [facility] Sodium [Moles/Vol] 134 mmol/L Low 136-145 [facility] Comment on above: Order Comment: No: D o not add to previous draw Performed By: #### 5 0608 #### [facility] [address] [facility] [place] [place] [address], [facility] Urea nitrogen [Mass/Vol] 39 mg/dL High 7-25 [facility] Comment on above: Order Comment: No: D o not add to previous draw Performed By: #### 5 0608 #### [facility] [address] [place] [address], [place] PROTHROMBIN TIMEon 17-202 0 INR Coag (PPP) [Relative time] 1.08 {INR} Normal 0.91-1.16 [facility] Comment on above: Order Comment: No: D o not add to previous draw Result Comment: ACCC P RECOMMENDED INR FOR WARFARIN THERAPY --------- ------- CONDITION INR PROPHYLAXIS OF VENOUS THROMBOSIS 2-3 (HIGH-RISK SURGERY) TREATMENT OF VENOUS THROMBOSIS 2-3 TREATMENT OF PULMONARY EMBOLISM 2-3 PREVENTION OF SYSTEMIC EMBOLISM: 2-3 ACUTE MYOCARDIAL INFARCTION TISSUE HEART VALVES VALVULAR HEART DISEASE ATRIAL FIBRILLATION RECURRENT SYSTEMIC EMBOLISM MECHANICAL HEART VALVE 2.5-3.5 FROM: ORAL ANTICOAGULANTS. MECHANISM OF ACTION, CLINICAL EFFECTIVENESS, AND OPTIMAL THERAPEUTIC RANGE. CHEST 1995;108:231S-246S. Performed By: #### 3 1509, [id number] #### [facility] [address] [place] [address], [facility] PT Coag (PPP) [Time] 14.0 s Normal 12.3-14.8 [facility] Comment on above: Order Comment: No: D o not add to previous draw Result Comment: ALL RESULTS MUST BE INTERPRETED WITH RESPECT TO BLOOD DRAWING ARTIFACT OR DILUTION ERROR OF ANTICOAGULANT AT THE TIME OF SAMPLING. Performed By: #### 3 1509, [id number] #### [facility] [address] [place] [address], [facility] BASIC METABOLIC PANELon 11-1 Calcium [Mass/Vol] 8.0 mg/dL Low 8.6-10.3 [facility] Comment on above: Order Comment: No: D o not add to previous draw Performed By: #### 5 0608 #### [facility] [address] [place] [address], [facility] Chloride [Moles/Vol] 109 mmol/L High 98-107 [facility] Comment on above: Order Comment: No: D o not add to previous draw Performed By: #### 5 0608 #### [facility] [address] [place] [address], [facility] CO2 [Moles/Vol] 19 mmol/L Low 21-31 [facility] Comment on above: Order Comment: No: D o not add to previous draw Performed By: #### 5 0608 #### [facility] [address] [place] [address], [facility] Creatinine [Mass/Vol] 4.82 mg/dL High 0.70-1.30 [facility] Comment on above: Order Comment: No: D o not add to previous draw Performed By: #### 5 0608 #### [facility] [address] [place] [address], [facility] GFR/1.73 sq M predicted among blacks MDRD (S/P/Bld) [Vol rate/Area] 14 ml/min/1.73sq m Abnormal >60 [facility] Comment on above: Order Comment: No: D o not add to previous draw Result Comment: Calc ulation may not be valid for patients over 70 years Performed By: #### 5 0608 #### [facility] [address] [place] [address], [facility] GFR/1.73 sq M predicted among non-blacks MDRD (S/P/Bld) [Vol rate/Area] 12 ml/min/1.73sq m Abnormal >60 [facility] Comment on above: Order Comment: No: D o not add to previous draw Result Comment: Calc ulation may not be valid for patients over 70 years Performed By: #### 5 0608 #### [facility] [address] [place] [address], [place] Glucose [Mass/Vol] 94 mg/dL Normal 70-100 [facility] Comment on above: Order Comment: No: D o not add to previous draw Performed By: #### 5 0608 #### [facility] [address] [place] [address], [facility] Potassium [Moles/Vol] 4.3 mmol/L Normal 3.5-5.1 [facility] Comment on above: Order Comment: No: D o not add to previous draw Performed By: #### 5 0608 #### [facility] [address] [place] [address], [place] Sodium [Moles/Vol] 136 mmol/L Normal 136-145 [facility] Comment on above: Order Comment: No: D o not add to previous draw Performed By: #### 5 0608 #### [facility] [address] [place] [address], [facility] Urea nitrogen [Mass/Vol] 50 mg/dL High 7-25 [facility] Comment on above: Order Comment: No: D o not add to previous draw Performed By: #### 5 0608 #### [facility] [address] [place] [address], [facility] CBC COMPLETE BLOOD COUNTon 11-18-2019 Erythrocyte distribution width (RBC) [Ratio] 15.6 % High 11.5-15.0 [facility] Comment on above: Order Comment: No: D o not add to previous draw Performed By: #### 3 0478 #### [facility] [address] [place] [address], [facility] Hematocrit (Bld) [Volume fraction] 22.7 % Low 39.0-50.0 [facility] Comment on above: Order Comment: No: D o not add to previous draw Performed By: #### 3 0478 #### [facility] [address] [place] [address], [facility] Hemoglobin (Bld) [Mass/Vol] 7.5 g/dL Low 13.0-17.0 [facility] Comment on above: Order Comment: No: D o not add to previous draw Performed By: #### 3 0478 #### [facility] [address] [place] [address], [facility] MCH (RBC) [Entitic mass] 31.1 pg Normal 27.0-33.0 [facility] Comment on above: Order Comment: No: D o not add to previous draw Performed By: #### 3 0478 #### [facility] [address] [place] [address], [facility] MCHC (RBC) [Mass/Vol] 33.0 g/dL Normal 32.0-35.0 [facility] Comment on above: Order Comment: No: D o not add to previous draw Performed By: #### 3 0478 #### [facility] [address] [place] [address], [facility] MCV (RBC) [Entitic vol] 94.2 fL Normal 82.0-98.0 [facility] Comment on above: Order Comment: No: D o not add to previous draw Performed By: #### 3 0478 #### [facility] [address] [place] [id number], [facility] Nucleated RBC/100 WBC (Bld) [Ratio] 0 % Normal 0-0 [facility] Comment on above: Order Comment: No: D o not add to previous draw Performed By: #### 3 0478 #### [facility] [address] [place] [address], [facility] PLAT CNT 160 10*3/uL Normal 150-400 [facility] Comment on above: Order Comment: No: D o not add to previous draw Performed By: #### 3 0478 #### [facility] [address] [place] [address], [facility] RBC (Bld) [#/Vol] 2.41 10*6/uL Low 4.20-5.70 [facility] Comment on above: Order Comment: No: D o not add to previous draw Performed By: #### 3 0478 #### [facility] [address] WBC (Bld) [#/Vol] 5.35 10*3/uL Normal 4.00-10.60 [facility] Comment on above: Order Comment: No: D o not add to previous draw Performed By: #### 3 0478 #### [facility] [address] [facility]. [address] *SARS-CoV-2 COVID-19on 09-17 [id number] Not Detected Normal Not Detected [facility] Comment on above: Order Comment: The A ptima SARS-CoV-2 assay is a nucleic acid amplification test intended for the qualitative detection of RNA from SARS-CoV-2 isolated and purified from nasopharyngeal (FOOTWEAR PRODUCTION MACHINE OPERATOR),oropharyngeal (OP), nasal swab, sputum, and bronchoalveolar lavage (BAL) specimens from patients with signs and symptoms of infection who are suspected of COVID-19. Results are for the identification of SARS-CoV-2 RNA. The SARS-CoV-2 RNA is generally detectable during the acute phase of infection. The Aptima SARS-CoV-2 Assay on the [employer] system is intended for use by laboratory personnel specifically instructed and trained in the operation of the [place] and [employer] Fusion system. The Aptima SARS-CoV-2 assay is only for use under the Food and Drug Administration Emergency Use Authorization. Testing is limited to laboratories certified under the Clinical Laboratory Improvement Amendments of 1988 (CLIA), 42 U.S.C. ???263a, to perform high complexity tests. Not Detected: Not detected does not preclude SARS-CoV-2 infection and should not be used as the sole basis for patient management decisions. Not detected results must be combined with clinical observations, patient history, and epidemiological information. Performed By: #### 3 [id number] #### [facility] [address] BASIC METABOLIC PANELon 09-03 Calcium [Mass/Vol] 7.9 mg/dL Low 8.6-10.3 [facility] Comment on above: Order Comment: No: D o not add to previous draw Performed By: #### 0 0071 ####[facility] [place] [place] [address], [facility] Chloride [Moles/Vol] 107 mmol/L Normal 98-107 [facility] Comment on above: Order Comment: No: D o not add to previous draw Performed By: #### 0 0071 ####[facility] [place] [address], [facility] CO2 [Moles/Vol] 19 mmol/L Low 21-31 [facility] Comment on above: Order Comment: No: D o not add to previous draw Performed By: #### 0 0071 ####[facility] [place] [address], [facility] Creatinine [Mass/Vol] 5.59 mg/dL High 0.70-1.30 [facility] Comment on above: Order Comment: No: D o not add to previous draw Performed By: #### 0 0071 ####[facility] [place] [address], [facility] GFR/1.73 sq M predicted among blacks MDRD (S/P/Bld) [Vol rate/Area] 12 ml/min/1.73sq m Abnormal >60 [facility] Comment on above: Order Comment: No: D o not add to previous draw Result Comment: Calc ulation may not be valid for patients over 70 years Performed By: #### 0 0071 ####[facility] [facility] [place] [address], [facility] GFR/1.73 sq M predicted among non-blacks MDRD (S/P/Bld) [Vol rate/Area] 10 ml/min/1.73sq m Abnormal >60 [facility] Comment on above: Order Comment: No: D o not add to previous draw Result Comment: Calc ulation may not be valid for patients over 70 years Performed By: #### 0 0071 ####[facility] [place] [address], [place] Glucose [Mass/Vol] 110 mg/dL High 70-100 [facility] Comment on above: Order Comment: No: D o not add to previous draw Performed By: #### 0 0071 ####[facility] [place] [address], [facility] Potassium [Moles/Vol] 4.0 mmol/L Normal 3.5-5.1 [facility] Comment on above: Order Comment: No: D o not add to previous draw Performed By: #### 0 0071 ####[facility] [place] [address], [facility] Sodium [Moles/Vol] 134 mmol/L Low 136-145 [facility] Comment on above: Order Comment: No: D o not add to previous draw Performed By: #### 0 0071 ####[facility] [facility] [place] [place] [address], [facility] Urea nitrogen [Mass/Vol] 55 mg/dL High 7-25 [facility] Comment on above: Order Comment: No: D o not add to previous draw Performed By: #### 0 0071 ####[facility] [facility] [place] [address], [facility] CBC COMPLETE BLOOD COUNTon 11-17-2019 Erythrocyte distribution width (RBC) [Ratio] 15.8 % High 11.5-15.0 [facility] Comment on above: Order Comment: No: D o not add to previous draw Performed By: #### 1 0008 #### [facility] [address] [place] [address], [facility] Hematocrit (Bld) [Volume fraction] 21.1 % Low 39.0-50.0 [facility] Comment on above: Order Comment: No: D o not add to previous draw Performed By: #### 1 0008 #### [facility] [address] [place] [address], [facility] Hemoglobin (Bld) [Mass/Vol] 7.2 g/dL Low 13.0-17.0 [facility] Comment on above: Order Comment: No: D o not add to previous draw Performed By: #### 1 0008 #### [facility] [address] [facility] [place] [address], [facility] MCH (RBC) [Entitic mass] 31.7 pg Normal 27.0-33.0 [facility] Comment on above: Order Comment: No: D o not add to previous draw Performed By: #### 1 0008 #### [facility] [address] [place] [address], [facility] MCHC (RBC) [Mass/Vol] 34.1 g/dL Normal 32.0-35.0 [facility] Comment on above: Order Comment: No: D o not add to previous draw Performed By: #### 1 0008 #### [facility] [address] [place] [address], [facility] MCV (RBC) [Entitic vol] 93.0 fL Normal 82.0-98.0 [facility] Comment on above: Order Comment: No: D o not add to previous draw Performed By: #### 1 0008 #### [facility] [address] Nucleated RBC/100 WBC (Bld) [Ratio] 0 % Normal 0-0 [facility] Comment on above: Order Comment: No: D o not add to previous draw Performed By: #### 1 0008 #### [facility] [address] [place] [address], [facility] PLAT CNT 148 10*3/uL Low 150-400 [facility] Comment on above: Order Comment: No: D o not add to previous draw Performed By: #### 1 0008 #### [facility] [address] [place] [address], [facility] RBC (Bld) [#/Vol] 2.27 10*6/uL Low 4.20-5.70 [facility] Comment on above: Order Comment: No: D o not add to previous draw Performed By: #### 1 0008 #### [facility] [address] [place] [address], [facility] WBC (Bld) [#/Vol] 4.90 10*3/uL Normal 4.00-10.60 [facility] Comment on above: Order Comment: No: D o not add to previous draw Performed By: #### 1 0008 #### [facility] [address] [place] [address], [facility] BASIC METABOLIC PANELon 11- Calcium [Mass/Vol] 7.9 mg/dL Low 8.6-10.3 [facility] Comment on above: Order Comment: No: D o not add to previous draw Performed By: #### 5 0608 #### [facility] [address] [place] [address], [facility] Chloride [Moles/Vol] 107 mmol/L Normal 98-107 [facility] Comment on above: Order Comment: No: D o not add to previous draw Performed By: #### 5 0608 #### [facility] [address] [place] [address], [facility] CO2 [Moles/Vol] 18 mmol/L Low 21-31 [facility] Comment on above: Order Comment: No: D o not add to previous draw Performed By: #### 5 0608 #### [facility] [address] [facility] [place] [address], [facility] Creatinine [Mass/Vol] 5.65 mg/dL High 0.70-1.30 [facility] Comment on above: Order Comment: No: D o not add to previous draw Performed By: #### 5 0608 #### [facility] [address] [place] [address], [facility] GFR/1.73 sq M predicted among blacks MDRD (S/P/Bld) [Vol rate/Area] 12 ml/min/1.73sq m Abnormal >60 [facility] Comment on above: Order Comment: No: D o not add to previous draw Result Comment: Calc ulation may not be valid for patients over 70 years Performed By: #### 5 0608 #### [facility] [address] [place] [address], [facility] GFR/1.73 sq M predicted among non-blacks MDRD (S/P/Bld) [Vol rate/Area] 10 ml/min/1.73sq m Abnormal >60 [facility] Comment on above: Order Comment: No: D o not add to previous draw Result Comment: Calc ulation may not be valid for patients over 70 years Performed By: #### 5 0608 #### [facility] [address] [place] [address], [facility] Glucose [Mass/Vol] 108 mg/dL High 70-100 [facility] Comment on above: Order Comment: No: D o not add to previous draw Performed By: #### 5 0608 #### [facility] [address] [place] [address], [place] Potassium [Moles/Vol] 3.7 mmol/L Normal 3.5-5.1 [facility] Comment on above: Order Comment: No: D o not add to previous draw Performed By: #### 5 0608 #### [facility] [address] [place] [address], [place] Sodium [Moles/Vol] 135 mmol/L Low 136-145 [facility] Comment on above: Order Comment: No: D o not add to previous draw Performed By: #### 5 0608 #### [facility] [address] [place] [address], [place] Urea nitrogen [Mass/Vol] 56 mg/dL High 7-25 [facility] Comment on above: Order Comment: No: D o not add to previous draw Performed By: #### 5 0608 #### [facility] [address] [place] [address], [place] CBC COMPLETE BLOOD COUNTon 11-16-2019 Erythrocyte distribution width (RBC) [Ratio] 16.0 % High 11.5-15.0 [facility] Comment on above: Order Comment: No: D o not add to previous draw Performed By: #### 1 0008 #### [facility] [address] [place] [address], [facility] Hematocrit (Bld) [Volume fraction] 23.3 % Low 39.0-50.0 [facility] Comment on above: Order Comment: No: D o not add to previous draw Performed By: #### 1 0008 #### [facility] [address] Hemoglobin (Bld) [Mass/Vol] 7.8 g/dL Low 13.0-17.0 [facility] Comment on above: Order Comment: No: D o not add to previous draw Performed By: #### 1 0008 #### [facility] [address] [place] [address], [facility] MCH (RBC) [Entitic mass] 31.2 pg Normal 27.0-33.0 [facility] Comment on above: Order Comment: No: D o not add to previous draw Performed By: #### 1 0008 #### [facility] [address] [facility] [place] [address], [facility] MCHC (RBC) [Mass/Vol] 33.5 g/dL Normal 32.0-35.0 [facility] Comment on above: Order Comment: No: D o not add to previous draw Performed By: #### 1 0008 #### [facility] [address] [facility] [place] [address], [facility] MCV (RBC) [Entitic vol] 93.2 fL Normal 82.0-98.0 [facility] Comment on above: Order Comment: No: D o not add to previous draw Performed By: #### 1 0008 #### [facility] [address] Nucleated RBC/100 WBC (Bld) [Ratio] 0 % Normal 0-0 [facility] Comment on above: Order Comment: No: D o not add to previous draw Performed By: #### 1 0008 #### [facility] [address] [place] [address], [facility] PLAT CNT 154 10*3/uL Normal 150-400 [facility] Comment on above: Order Comment: No: D o not add to previous draw Performed By: #### 1 0008 #### [facility] [address] [facility] [place] [address], [facility] RBC (Bld) [#/Vol] 2.50 10*6/uL Low 4.20-5.70 [facility] Comment on above: Order Comment: No: D o not add to previous draw Performed By: #### 1 0008 #### [facility] [address] [facility] [place] [address], [facility] WBC (Bld) [#/Vol] 5.13 10*3/uL Normal 4.00-10.60 [facility] Comment on above: Order Comment: No: D o not add to previous draw Performed By: #### 1 0008 #### [facility] [address] [facility]. [address] BASIC METABOLIC PANELon 11-1 -2019 Calcium [Mass/Vol] 8.0 mg/dL Low 8.6-10.3 [facility] Comment on above: Order Comment: No: D o not add to previous draw Performed By: #### 5 6101 #### [facility] [address] [facility] [place] [address], [facility] Chloride [Moles/Vol] 106 mmol/L Normal 98-107 [facility] Comment on above: Order Comment: No: D o not add to previous draw Performed By: #### 5 6101 #### [facility] [address] [facility] [place] [address], [place] CO2 [Moles/Vol] 20 mmol/L Low 21-31 [facility] Comment on above: Order Comment: No: D o not add to previous draw Performed By: #### 5 6101 #### [facility] [address] [place] [address], [place] Creatinine [Mass/Vol] 5.90 mg/dL High 0.70-1.30 [facility] Comment on above: Order Comment: No: D o not add to previous draw Performed By: #### 5 6101 #### [facility] [address] [place] [address], [place] GFR/1.73 sq M predicted among blacks MDRD (S/P/Bld) [Vol rate/Area] 11 ml/min/1.73sq m Abnormal >60 [facility] Comment on above: Order Comment: No: D o not add to previous draw Result Comment: Calc ulation may not be valid for patients over 70 years Performed By: #### 5 6101 #### [facility] [address] [place] [address], [place] GFR/1.73 sq M predicted among non-blacks MDRD (S/P/Bld) [Vol rate/Area] 9 ml/min/1.73sq m Abnormal >60 [facility] Comment on above: Order Comment: No: D o not add to previous draw Result Comment: Calc ulation may not be valid for patients over 70 years Performed By: #### 5 6101 #### [facility] [address] [place] [address], [place] Glucose [Mass/Vol] 97 mg/dL Normal 70-100 [facility] Comment on above: Order Comment: No: D o not add to previous draw Performed By: #### 5 6101 #### [facility] [address] [place] [address], [place] Potassium [Moles/Vol] 3.6 mmol/L Normal 3.5-5.1 [facility] Comment on above: Order Comment: No: D o not add to previous draw Performed By: #### 5 6101 #### [facility] [address] [place] [address], [facility] Sodium [Moles/Vol] 135 mmol/L Low 136-145 [facility] Comment on above: Order Comment: No: D o not add to previous draw Performed By: #### 5 6101 #### [facility] [address] Urea nitrogen [Mass/Vol] 54 mg/dL High 7-25 [facility] Comment on above: Order Comment: No: D o not add to previous draw Performed By: #### 5 6101 #### [facility] [address] CBC COMPLETE BLOOD COUNTon 11-15-2019 Erythrocyte distribution width (RBC) [Ratio] 16.4 % High 11.5-15.0 [facility] Comment on above: Order Comment: No: D o not add to previous draw Performed By: #### 5 0608 #### [facility] [address] [facility] [place] [address], [facility] Hematocrit (Bld) [Volume fraction] 22.6 % Low 39.0-50.0 [facility] Comment on above: Order Comment: No: D o not add to previous draw Performed By: #### 5 0608 #### [facility] [address] [facility] [address] Hemoglobin (Bld) [Mass/Vol] 7.5 g/dL Low 13.0-17.0 [facility] Comment on above: Order Comment: No: D o not add to previous draw Performed By: #### 5 0608 #### [facility] [address] [place] [address], [facility] MCH (RBC) [Entitic mass] 30.9 pg Normal 27.0-33.0 [facility] Comment on above: Order Comment: No: D o not add to previous draw Performed By: #### 5 0608 #### [facility] [address] [place] [address], [facility] MCHC (RBC) [Mass/Vol] 33.2 g/dL Normal 32.0-35.0 [facility] Comment on above: Order Comment: No: D o not add to previous draw Performed By: #### 5 0608 #### [facility] [address] [place] [address], [facility] MCV (RBC) [Entitic vol] 93.0 fL Normal 82.0-98.0 [facility] Comment on above: Order Comment: No: D o not add to previous draw Performed By: #### 5 0608 #### [facility] [address] [facility] [place] [address], [facility] Nucleated RBC/100 WBC (Bld) [Ratio] 0 % Normal 0-0 [facility] Comment on above: Order Comment: No: D o not add to previous draw Performed By: #### 5 0608 #### [facility] [address] [facility] [place] [address], [facility] PLAT CNT 154 10*3/uL Normal 150-400 [facility] Comment on above: Order Comment: No: D o not add to previous draw Performed By: #### 5 0608 #### [facility] [address] [facility] [place] [address], [facility] RBC (Bld) [#/Vol] 2.43 10*6/uL Low 4.20-5.70 [facility] Comment on above: Order Comment: No: D o not add to previous draw Performed By: #### 5 0608 #### [facility] [address] [place] [id number], [facility] WBC (Bld) [#/Vol] 5.11 10*3/uL Normal 4.00-10.60 [facility] Comment on above: Order Comment: No: D o not add to previous draw Performed By: #### 5 0608 #### [facility] [address] [facility]. [address] *SARS-CoV-2 COVID-19on 09-14 [id number] Not Detected Normal Not Detected [facility] Comment on above: Order Comment: The A ptima SARS-CoV-2 assay is a nucleic acid amplification testintended for the qualitative detection of RNA from SARS-CoV-2 isolatedand purified from nasopharyngeal (FOOTWEAR PRODUCTION MACHINE OPERATOR),oropharyngeal (OP), nasal swab,sputum, and bronchoalveolar lavage (BAL) specimens from patients withsigns and symptoms of infection who are suspected of COVID-19.Results are for the identification of SARS-CoV-2 RNA. The SARS-CoV-2 RNAis generally detectable during the acute phase of infection.The Aptima SARS-CoV-2 Assay on the [place] [employer] [place] [employer] system isintended for use by laboratory personnel specifically instructed andtrained in the operation of the [place] [employer] [place] [employer] system. TheAptima SARS-CoV-2 assay is only for use under the Food and DrugAdministration Emergency Use Authorization. Testing is limited tolaboratories certified under the Clinical Laboratory ImprovementAmendments of 1988 (CLIA), 42 U.S.C. ???263a, to perform high complexitytests.Not Detected:Not detected does not preclude SARS-CoV-2 infection and should not beused as the sole basis for patient management decisions. Not detectedresults must be combined with clinical observations, patient history,and epidemiological information. Performed By: #### 1 0008 #### [facility] [address] [facility] [address] BASIC METABOLIC PANELon 09-03 Calcium [Mass/Vol] 8.2 mg/dL Low 8.6-10.3 [facility] Comment on above: Order Comment: No: D o not add to previous draw Performed By: #### 5 [id number] #### [facility] [address] [place] [address], [facility] Chloride [Moles/Vol] 107 mmol/L Normal 98-107 [facility] Comment on above: Order Comment: No: D o not add to previous draw Performed By: #### 5 6101 #### [facility] [address] [place] [address], [place] CO2 [Moles/Vol] 22 mmol/L Normal 21-31 [facility] Comment on above: Order Comment: No: D o not add to previous draw Performed By: #### 5 6101 #### [facility] [address] [place] [address], [place] Creatinine [Mass/Vol] 6.45 mg/dL High 0.70-1.30 [facility] Comment on above: Order Comment: No: D o not add to previous draw Performed By: #### 5 [id number] #### [facility] [address] [place] [address], [place] GFR/1.73 sq M predicted among blacks MDRD (S/P/Bld) [Vol rate/Area] 10 ml/min/1.73sq m Abnormal >60 [facility] Comment on above: Order Comment: No: D o not add to previous draw Result Comment: Calc ulation may not be valid for patients over 70 years Performed By: #### 5 [id number] #### [facility] [address] [place] [address], [place] GFR/1.73 sq M predicted among non-blacks MDRD (S/P/Bld) [Vol rate/Area] 8 ml/min/1.73sq m Abnormal >60 [facility] Comment on above: Order Comment: No: D o not add to previous draw Result Comment: Calc ulation may not be valid for patients over 70 years Performed By: #### 5 [id number] #### [facility] [address] [place] [address], [place] Glucose [Mass/Vol] 99 mg/dL Normal 70-100 [facility] Comment on above: Order Comment: No: D o not add to previous draw Performed By: #### 5 [id number] #### [facility] [address] [place] [address], [facility] Potassium [Moles/Vol] 3.8 mmol/L Normal 3.5-5.1 [facility] Comment on above: Order Comment: No: D o not add to previous draw Performed By: #### 5 [id number] #### [facility] [address] [place] [id number], [facility] Sodium [Moles/Vol] 138 mmol/L Normal 136-145 [facility] Comment on above: Order Comment: No: D o not add to previous draw Performed By: #### 5 [id number] #### [facility] [address] Urea nitrogen [Mass/Vol] 66 mg/dL High 7-25 [facility] Comment on above: Order Comment: No: D o not add to previous draw Performed By: #### 5 [id number] #### [facility] [address] CBC COMPLETE BLOOD COUNTon 11-14-2019 Erythrocyte distribution width (RBC) [Ratio] 15.8 % High 11.5-15.0 [facility] Comment on above: Order Comment: The A ptima SARS-CoV-2 assay is a nucleic acid amplification test intended for the qualitative detection of RNA from SARS-CoV-2 isolated and purified from nasopharyngeal (FOOTWEAR PRODUCTION MACHINE OPERATOR),oropharyngeal (OP), nasal swab, sputum, and bronchoalveolar lavage (BAL) specimens from patients with signs and symptoms of infection who are suspected of COVID-19. Results are for the identification of SARS-CoV-2 RNA. The SARS-CoV-2 RNA is generally detectable during the acute phase of infection. The Aptima SARS-CoV-2 Assay on the [employer] system is intended for use by laboratory personnel specifically instructed and trained in the operation of the [place] [employer] system. The Aptima SARS-CoV-2 assay is only for use under the Food and Drug Administration Emergency Use Authorization. Testing is limited to laboratories certified under the Clinical Laboratory Improvement Amendments of 1988 (CLIA), 42 U.S.C. ???263a, to perform high complexity tests. Not Detected: Not detected does not preclude SARS-CoV-2 infection and should not be used as the sole basis for patient management decisions. Not detected results must be combined with clinical observations, patient history, and epidemiological information. Performed By: #### 3 [id number] #### [facility] [address] [facility] [place] [address], [facility] Hematocrit (Bld) [Volume fraction] 21.0 % Low 39.0-50.0 [facility] Comment on above: Order Comment: The A ptima SARS-CoV-2 assay is a nucleic acid amplification test intended for the qualitative detection of RNA from SARS-CoV-2 isolated and purified from nasopharyngeal (FOOTWEAR PRODUCTION MACHINE OPERATOR),oropharyngeal (OP), nasal swab, sputum, and bronchoalveolar lavage (BAL) specimens from patients with signs and symptoms of infection who are suspected of COVID-19. Results are for the identification of SARS-CoV-2 RNA. The SARS-CoV-2 RNA is generally detectable during the acute phase of infection. The Aptima SARS-CoV-2 Assay on the [employer] system is intended for use by laboratory personnel specifically instructed and trained in the operation of the [employer] system. The Aptima SARS-CoV-2 assay is only for use under the Food and Drug Administration Emergency Use Authorization. Testing is limited to laboratories certified under the Clinical Laboratory Improvement Amendments of 1988 (CLIA), 42 U.S.C. ???263a, to perform high complexity tests. Not Detected: Not detected does not preclude SARS-CoV-2 infection and should not be used as the sole basis for patient management decisions. Not detected results must be combined with clinical observations, patient history, and epidemiological information. Performed By: #### 3 1792 #### [facility] [address] [facility] [place] [address], [facility] Hemoglobin (Bld) [Mass/Vol] 6.8 g/dL Low 13.0-17.0 [facility] Comment on above: Order Comment: The A ptima SARS-CoV-2 assay is a nucleic acid amplification test intended for the qualitative detection of RNA from SARS-CoV-2 isolated and purified from nasopharyngeal (FOOTWEAR PRODUCTION MACHINE OPERATOR),oropharyngeal (OP), nasal swab, sputum, and bronchoalveolar lavage (BAL) specimens from patients with signs and symptoms of infection who are suspected of COVID-19. Results are for the identification of SARS-CoV-2 RNA. The SARS-CoV-2 RNA is generally detectable during the acute phase of infection. The Aptima SARS-CoV-2 Assay on the [employer] system is intended for use by laboratory personnel specifically instructed and trained in the operation of the [employer] system. The Aptima SARS-CoV-2 assay is only for use under the Food and Drug Administration Emergency Use Authorization. Testing is limited to laboratories certified under the Clinical Laboratory Improvement Amendments of 1988 (CLIA), 42 U.S.C. ???263a, to perform high complexity tests. Not Detected: Not detected does not preclude SARS-CoV-2 infection and should not be used as the sole basis for patient management decisions. Not detected results must be combined with clinical observations, patient history, and epidemiological information. Performed By: #### 3 1792 #### [address] MCH (RBC) [Entitic mass] 30.9 pg Normal 27.0-33.0 [facility] Comment on above: Order Comment: The A ptima SARS-CoV-2 assay is a nucleic acid amplification test intended for the qualitative detection of RNA from SARS-CoV-2 isolated and purified from nasopharyngeal (FOOTWEAR PRODUCTION MACHINE OPERATOR),oropharyngeal (OP), nasal swab, sputum, and bronchoalveolar lavage (BAL) specimens from patients with signs and symptoms of infection who are suspected of COVID-19. Results are for the identification of SARS-CoV-2 RNA. The SARS-CoV-2 RNA is generally detectable during the acute phase of infection. The Aptima SARS-CoV-2 Assay on the [place] [employer] [place] [employer] system is intended for use by laboratory personnel specifically instructed and trained in the operation of the [employer] system. The Aptima SARS-CoV-2 assay is only for use under the Food and Drug Administration Emergency Use Authorization. Testing is limited to laboratories certified under the Clinical Laboratory Improvement Amendments of 1988 (CLIA), 42 U.S.C. ???263a, to perform high complexity tests. Not Detected: Not detected does not preclude SARS-CoV-2 infection and should not be used as the sole basis for patient management decisions. Not detected results must be combined with clinical observations, patient history, and epidemiological information. Performed By: #### 3 1791 #### [facility] [address] MCHC (RBC) [Mass/Vol] 32.4 g/dL Normal 32.0-35.0 [facility] Comment on above: Order Comment: The A ptima SARS-CoV-2 assay is a nucleic acid amplification test intended for the qualitative detection of RNA from SARS-CoV-2 isolated and purified from nasopharyngeal (FOOTWEAR PRODUCTION MACHINE OPERATOR),oropharyngeal (OP), nasal swab, sputum, and bronchoalveolar lavage (BAL) specimens from patients with signs and symptoms of infection who are suspected of COVID-19. Results are for the identification of SARS-CoV-2 RNA. The SARS-CoV-2 RNA is generally detectable during the acute phase of infection. The Aptima SARS-CoV-2 Assay on the [employer] system is intended for use by laboratory personnel specifically instructed and trained in the operation of the [employer] system. The Aptima SARS-CoV-2 assay is only for use under the Food and Drug Administration Emergency Use Authorization. Testing is limited to laboratories certified under the Clinical Laboratory Improvement Amendments of 1988 (CLIA), 42 U.S.C. ???263a, to perform high complexity tests. Not Detected: Not detected does not preclude SARS-CoV-2 infection and should not be used as the sole basis for patient management decisions. Not detected results must be combined with clinical observations, patient history, and epidemiological information. Performed By: #### 3 1792 #### [facility] [address] [place] [address], [facility] MCV (RBC) [Entitic vol] 95.5 fL Normal 82.0-98.0 [facility] Comment on above: Order Comment: The A ptima SARS-CoV-2 assay is a nucleic acid amplification test intended for the qualitative detection of RNA from SARS-CoV-2 isolated and purified from nasopharyngeal (FOOTWEAR PRODUCTION MACHINE OPERATOR),oropharyngeal (OP), nasal swab, sputum, and bronchoalveolar lavage (BAL) specimens from patients with signs and symptoms of infection who are suspected of COVID-19. Results are for the identification of SARS-CoV-2 RNA. The SARS-CoV-2 RNA is generally detectable during the acute phase of infection. The Aptima SARS-CoV-2 Assay on the [employer] system is intended for use by laboratory personnel specifically instructed and trained in the operation of the [employer] system. The Aptima SARS-CoV-2 assay is only for use under the Food and Drug Administration Emergency Use Authorization. Testing is limited to laboratories certified under the Clinical Laboratory Improvement Amendments of 1988 (CLIA), 42 U.S.C. ???263a, to perform high complexity tests. Not Detected: Not detected does not preclude SARS-CoV-2 infection and should not be used as the sole basis for patient management decisions. Not detected results must be combined with clinical observations, patient history, and epidemiological information. Performed By: #### 3 1792 #### [address] Nucleated RBC/100 WBC (Bld) [Ratio] 0 % Normal 0-0 [facility] Comment on above: Order Comment: The A ptima SARS-CoV-2 assay is a nucleic acid amplification test intended for the qualitative detection of RNA from SARS-CoV-2 isolated and purified from nasopharyngeal (FOOTWEAR PRODUCTION MACHINE OPERATOR),oropharyngeal (OP), nasal swab, sputum, and bronchoalveolar lavage (BAL) specimens from patients with signs and symptoms of infection who are suspected of COVID-19. Results are for the identification of SARS-CoV-2 RNA. The SARS-CoV-2 RNA is generally detectable during the acute phase of infection. The Aptima SARS-CoV-2 Assay on the [place] [employer] system is intended for use by laboratory personnel specifically instructed and trained in the operation of the [place] [employer] system. The Aptima SARS-CoV-2 assay is only for use under the Food and Drug Administration Emergency Use Authorization. Testing is limited to laboratories certified under the Clinical Laboratory Improvement Amendments of 1988 (CLIA), 42 U.S.C. ???263a, to perform high complexity tests. Not Detected: Not detected does not preclude SARS-CoV-2 infection and should not be used as the sole basis for patient management decisions. Not detected results must be combined with clinical observations, patient history, and epidemiological information. Performed By: #### 3 1792 #### [facility] [address] [facility] [place] [address], [facility] PLAT CNT 164 10*3/uL Normal 150-400 [facility] Comment on above: Order Comment: The A ptima SARS-CoV-2 assay is a nucleic acid amplification test intended for the qualitative detection of RNA from SARS-CoV-2 isolated and purified from nasopharyngeal (FOOTWEAR PRODUCTION MACHINE OPERATOR),oropharyngeal (OP), nasal swab, sputum, and bronchoalveolar lavage (BAL) specimens from patients with signs and symptoms of infection who are suspected of COVID-19. Results are for the identification of SARS-CoV-2 RNA. The SARS-CoV-2 RNA is generally detectable during the acute phase of infection. The Aptima SARS-CoV-2 Assay on the [employer] system is intended for use by laboratory personnel specifically instructed and trained in the operation of the [place] [employer] system. The Aptima SARS-CoV-2 assay is only for use under the Food and Drug Administration Emergency Use Authorization. Testing is limited to laboratories certified under the Clinical Laboratory Improvement Amendments of 1988 (CLIA), 42 U.S.C. ???263a, to perform high complexity tests. Not Detected: Not detected does not preclude SARS-CoV-2 infection and should not be used as the sole basis for patient management decisions. Not detected results must be combined with clinical observations, patient history, and epidemiological information. Performed By: #### 3 1792 #### [facility] [address] [facility] [place] [address], [facility] RBC (Bld) [#/Vol] 2.20 10*6/uL Low 4.20-5.70 [facility] Comment on above: Order Comment: The A ptima SARS-CoV-2 assay is a nucleic acid amplification test intended for the qualitative detection of RNA from SARS-CoV-2 isolated and purified from nasopharyngeal (FOOTWEAR PRODUCTION MACHINE OPERATOR),oropharyngeal (OP), nasal swab, sputum, and bronchoalveolar lavage (BAL) specimens from patients with signs and symptoms of infection who are suspected of COVID-19. Results are for the identification of SARS-CoV-2 RNA. The SARS-CoV-2 RNA is generally detectable during the acute phase of infection. The Aptima SARS-CoV-2 Assay on the [employer] system is intended for use by laboratory personnel specifically instructed and trained in the operation of the [employer] system. The Aptima SARS-CoV-2 assay is only for use under the Food and Drug Administration Emergency Use Authorization. Testing is limited to laboratories certified under the Clinical Laboratory Improvement Amendments of 1988 (CLIA), 42 U.S.C. ???263a, to perform high complexity tests. Not Detected: Not detected does not preclude SARS-CoV-2 infection and should not be used as the sole basis for patient management decisions. Not detected results must be combined with clinical observations, patient history, and epidemiological information. Performed By: #### 3 1792 #### [facility] [address] [facility] [address] WBC (Bld) [#/Vol] 5.14 10*3/uL Normal 4.00-10.60 [facility] Comment on above: Order Comment: The A ptima SARS-CoV-2 assay is a nucleic acid amplification test intended for the qualitative detection of RNA from SARS-CoV-2 isolated and purified from nasopharyngeal (FOOTWEAR PRODUCTION MACHINE OPERATOR),oropharyngeal (OP), nasal swab, sputum, and bronchoalveolar lavage (BAL) specimens from patients with signs and symptoms of infection who are suspected of COVID-19. Results are for the identification of SARS-CoV-2 RNA. The SARS-CoV-2 RNA is generally detectable during the acute phase of infection. The Aptima SARS-CoV-2 Assay on the [place] [employer] system is intended for use by laboratory personnel specifically instructed and trained in the operation of the [employer] system. The Aptima SARS-CoV-2 assay is only for use under the Food and Drug Administration Emergency Use Authorization. Testing is limited to laboratories certified under the Clinical Laboratory Improvement Amendments of 1988 (CLIA), 42 U.S.C. ???263a, to perform high complexity tests. Not Detected: Not detected does not preclude SARS-CoV-2 infection and should not be used as the sole basis for patient management decisions. Not detected results must be combined with clinical observations, patient history, and epidemiological information. Performed By: #### 3 1792 #### [facility] [address] [place] [address], [facility] HEMATOCRITon 09-14-2020 Hematocrit (Bld) [Volume fraction] 23.9 % Low 39.0-50.0 [facility] Comment on above: Order Comment: The A ptima SARS-CoV-2 assay is a nucleic acid amplification test intended for the qualitative detection of RNA from SARS-CoV-2 isolated and purified from nasopharyngeal (FOOTWEAR PRODUCTION MACHINE OPERATOR),oropharyngeal (OP), nasal swab, sputum, and bronchoalveolar lavage (BAL) specimens from patients with signs and symptoms of infection who are suspected of COVID-19. Results are for the identification of SARS-CoV-2 RNA. The SARS-CoV-2 RNA is generally detectable during the acute phase of infection. The Aptima SARS-CoV-2 Assay on the [employer] system is intended for use by laboratory personnel specifically instructed and trained in the operation of the [place] [employer] system. The Aptima SARS-CoV-2 assay is only for use under the Food and Drug Administration Emergency Use Authorization. Testing is limited to laboratories certified under the Clinical Laboratory Improvement Amendments of 1988 (CLIA), 42 U.S.C. ???263a, to perform high complexity tests. Not Detected: Not detected does not preclude SARS-CoV-2 infection and should not be used as the sole basis for patient management decisions. Not detected results must be combined with clinical observations, patient history, and epidemiological information. Performed By: #### 3 1792 #### [facility] [address] HEMOGLOBINon 09-14-2020 Hemoglobin (Bld) [Mass/Vol] 8.0 g/dL Low 13.0-17.0 [facility] Comment on above: Order Comment: The A ptima SARS-CoV-2 assay is a nucleic acid amplification test intended for the qualitative detection of RNA from SARS-CoV-2 isolated and purified from nasopharyngeal (FOOTWEAR PRODUCTION MACHINE OPERATOR),oropharyngeal (OP), nasal swab, sputum, and bronchoalveolar lavage (BAL) specimens from patients with signs and symptoms of infection who are suspected of COVID-19. Results are for the identification of SARS-CoV-2 RNA. The SARS-CoV-2 RNA is generally detectable during the acute phase of infection. The Aptima SARS-CoV-2 Assay on the [place] [employer] system is intended for use by laboratory personnel specifically instructed and trained in the operation of the [employer] system. The Aptima SARS-CoV-2 assay is only for use under the Food and Drug Administration Emergency Use Authorization. Testing is limited to laboratories certified under the Clinical Laboratory Improvement Amendments of 1988 (CLIA), 42 U.S.C. ???263a, to perform high complexity tests. Not Detected: Not detected does not preclude SARS-CoV-2 infection and should not be used as the sole basis for patient management decisions. Not detected results must be combined with clinical observations, patient history, and epidemiological information. Performed By: #### 3 1792 #### [facility] [address] [place] [address], [facility] RBC'S 1 UNITon 09-14-2020 CROSSMATCH INTERP 1 COMP Normal [facility] Comment on above: Order Comment: [place] nephrosis, please assess for hydronephrosis resolution Performed By: #### 8 [id number] ####[facility] [facility] [place] [address], [facility] PRODUCT CODE 1 E0336 Normal [facility] Comment on above: Order Comment: [place] nephrosis, please assess for hydronephrosis resolution Performed By: #### 8 6001 ####[facility] [facility] [place] [address], [facility] PRODUCT STATUS 1 PT Normal [facility] Comment on above: Order Comment: [place] nephrosis, please assess for hydronephrosis resolution Result Comment: Resu lt changed by IF on 09/14/2020 12:52. The previous value was XM. Result changed by IF on 09/15/2020 00:30. The previous value was IS. Performed By: #### 8 6001 ####[facility] [place] [address], [facility] UNIT ABO 1 A Normal [facility] Comment on above: Order Comment: [place] nephrosis, please assess for hydronephrosis resolution Performed By: #### 8 6001 ####[facility] [place] [address], [facility] UNIT ID 1 [id number] Normal [facility] Comment on above: Order Comment: [place] nephrosis, please assess for hydronephrosis resolution Performed By: #### 8 6001 ####[facility] [place] [address], [facility] UNIT RH 1 Positive Normal [facility] Comment on above: Order Comment: [place] nephrosis, please assess for hydronephrosis resolution Performed By: #### 8 6001 ####[facility] [place] [address], [facility] TYPE AND SCREENon 09-14-2020 ABO INTERPRETATION A Normal [facility] Comment on above: Performed By: #### 3 1509, [id number] #### [facility] [address] [place] [address], [facility] RH INTERPRETATION Positive Normal [facility] Comment on above: Performed By: #### 3 1509, [id number] #### [facility] [address] [place] [address], [facility] US RENALon 09-14-2020 US RENAL [facility] Department of Radiology [address] [place] [id number] ===== Patient Name: CHANO GOMEZ : 1945 Sex: M Age: Race: White Pt. Location: [id number] Patient Status: I Ordered Date: 09/14/2020 7:30:00 AM Completed Date: 09/14/2020 11:22 AM Requesting Provider: ARTURO CARRION Attending Provider: ROHITH SALAS Report Copy To: Signs & Symptoms: Urinary Retention History: See Comments Comments: Hydronephrosis, please assess for hydronephrosis resolution Exam: US RENAL ===== CLINICAL INFORMATION: Hydronephrosis. COMPARISON: 09/11/2020. FINDINGS: RIGHT KIDNEY: Length: 10.6 cm. Cortical Thickness/Echogenicity: Normal Vascularity: Normal Hydronephrosis: Persistent, though improved mild right hydronephrosis Calculus: None Mass: None Other: None LEFT KIDNEY: Length: 10.8 cm. Cortical Thickness/Echogenicity: Normal Vascularity: Normal Hydronephrosis: Persistent, although likely slightly improved moderate hydronephrosis Calculus: None Mass: None Other: None URINARY BLADDER: Decompressed with Bernal, demonstrating apparent wall thickening. IMPRESSION: 1. Persistent, though slightly improved, moderate left and mild right hydronephrosis. 2. Persistent nonspecific bladder wall thickening, decompressed with Bernal catheter. Electronically signed: NA MCCALLUM. Transcribed by: [email or web address], User Resident: Electronically Signed by: NA MCCALLUM @ 09/14/2020 12:52 PM Normal [facility] Comment on above: Order Comment: [place] nephrosis, please assess for hydronephrosis resolution BASIC METABOLIC PANELon 09-03 Calcium [Mass/Vol] 8.5 mg/dL Low 8.6-10.3 [facility] Comment on above: Order Comment: No: D o not add to previous draw Performed By: #### 0 0071 ####[facility] [place] [address], [facility] Chloride [Moles/Vol] 103 mmol/L Normal 98-107 [facility] Comment on above: Order Comment: No: D o not add to previous draw Performed By: #### 0 0071 ####[facility] [place] [address], [facility] CO2 [Moles/Vol] 24 mmol/L Normal 21-31 [facility] Comment on above: Order Comment: No: D o not add to previous draw Performed By: #### 0 0071 ####[facility] [place] [address], [place] Creatinine [Mass/Vol] 7.51 mg/dL High 0.70-1.30 [facility] Comment on above: Order Comment: No: D o not add to previous draw Performed By: #### 0 0071 ####[facility] [facility] [place] [place] [address], [facility] GFR/1.73 sq M predicted among blacks MDRD (S/P/Bld) [Vol rate/Area] 9 ml/min/1.73sq m Abnormal >60 [facility] Comment on above: Order Comment: No: D o not add to previous draw Result Comment: Calc ulation may not be valid for patients over 70 years Performed By: #### 0 0071 ####[facility] [facility] [place] [address], [place] GFR/1.73 sq M predicted among non-blacks MDRD (S/P/Bld) [Vol rate/Area] 7 ml/min/1.73sq m Abnormal >60 [facility] Comment on above: Order Comment: No: D o not add to previous draw Result Comment: Calc ulation may not be valid for patients over 70 years Performed By: #### 0 0071 ####[facility] [place] [address], [place] Glucose [Mass/Vol] 102 mg/dL High 70-100 [facility] Comment on above: Order Comment: No: D o not add to previous draw Performed By: #### 0 0071 ####[facility] [place] [address], [place] Potassium [Moles/Vol] 3.4 mmol/L Low 3.5-5.1 [facility] Comment on above: Order Comment: No: D o not add to previous draw Performed By: #### 0 0071 ####[facility] [place] [address], [facility] Sodium [Moles/Vol] 137 mmol/L Normal 136-145 [facility] Comment on above: Order Comment: No: D o not add to previous draw Performed By: #### 0 0071 ####[facility] [facility].[address] Urea nitrogen [Mass/Vol] 74 mg/dL High 7-25 [facility] Comment on above: Order Comment: No: D o not add to previous draw Performed By: #### 0 0071 ####[facility].[address] BMPon 09-13-2020 Urea nitrogen [Mass/Vol] 93 mg/dL Abnormal 5-21 [facility] Comment on above: Result Comment: Crit ical Result [id number]_[id number] Called to JONATHAN CASE AT ER by VICENTA DOWNS And Read Back For Confirmation at: 09/10/2020 10:55:01 Results Verified By Repeat Analysis. Performed By: #### 2 [id number], [id number], [id number], [id number], [id number], [id number], [id number], [id number], [id number], [id number], [id number], [id number], [id number], [id number] ####[facility] [id number] [place] [address] CBC COMPLETE BLOOD COUNTon 1 11-13-2019 Erythrocyte distribution width (RBC) [Ratio] 15.9 % High 11.5-15.0 [facility] Comment on above: Order Comment: No: D o not add to previous draw Performed By: #### 1 0008 #### [facility] [address] [facility] [place] [address], [facility] Hematocrit (Bld) [Volume fraction] 21.6 % Low 39.0-50.0 [facility] Comment on above: Order Comment: No: D o not add to previous draw Performed By: #### 1 0008 #### [facility] [address] [facility] [place] [address], [facility] Hemoglobin (Bld) [Mass/Vol] 7.3 g/dL Low 13.0-17.0 [facility] Comment on above: Order Comment: No: D o not add to previous draw Performed By: #### 1 0008 #### [facility] [address] [facility] [place] [address], [facility] MCH (RBC) [Entitic mass] 31.6 pg Normal 27.0-33.0 [facility] Comment on above: Order Comment: No: D o not add to previous draw Performed By: #### 1 0008 #### [facility] [address] [facility] [place] [address], [facility] MCHC (RBC) [Mass/Vol] 33.8 g/dL Normal 32.0-35.0 [facility] Comment on above: Order Comment: No: D o not add to previous draw Performed By: #### 1 0008 #### [facility] [address] [facility] [place] [address], [facility] MCV (RBC) [Entitic vol] 93.5 fL Normal 82.0-98.0 [facility] Comment on above: Order Comment: No: D o not add to previous draw Performed By: #### 1 0008 #### [facility] [address] [facility] [place] [address], [facility] Nucleated RBC/100 WBC (Bld) [Ratio] 0 % Normal 0-0 [facility] Comment on above: Order Comment: No: D o not add to previous draw Performed By: #### 1 0008 #### [facility] [address] [facility] [place] [address], [facility] PLAT CNT 186 10*3/uL Normal 150-400 [facility] Comment on above: Order Comment: No: D o not add to previous draw Performed By: #### 1 0008 #### [facility] [address] [place] [address], [facility] RBC (Bld) [#/Vol] 2.31 10*6/uL Low 4.20-5.70 [facility] Comment on above: Order Comment: No: D o not add to previous draw Performed By: #### 1 0008 #### [facility] [address] [place] [address], [facility] WBC (Bld) [#/Vol] 4.43 10*3/uL Normal 4.00-10.60 [facility] Comment on above: Order Comment: No: D o not add to previous draw Performed By: #### 1 0008 #### [facility] [address] [facility] [place] [address], [facility] *URINE CATH CULTUREon 2019 *URINE CATH CULTURE Clinical Report: (D) Specimen/Source: URINE/CATHETER BERNAL Collected: 09/12/2020 12:16 Status: Final Last Updated: 09/15/2020 09:31 CULT RES (Final) NO GROWTH 48 HOURS Normal [facility] Comment on above: Performed By: #### 3 0478 #### [facility] [address] [facility] [place] [address], [facility] BASIC METABOLIC PANELon 11-1 Calcium [Mass/Vol] 8.5 mg/dL Low 8.6-10.3 [facility] Comment on above: Order Comment: No: D o not add to previous draw Performed By: #### 5 6101 #### [facility] [address] [facility] [place] [id number], [facility] Chloride [Moles/Vol] 103 mmol/L Normal 98-107 [facility] Comment on above: Order Comment: No: D o not add to previous draw Performed By: #### 5 6101 #### [facility] [address] [place] [address], [place] CO2 [Moles/Vol] 25 mmol/L Normal 21-31 [facility] Comment on above: Order Comment: No: D o not add to previous draw Performed By: #### 5 6101 #### [facility] [address] [place] [address], [place] Creatinine [Mass/Vol] 8.48 mg/dL High 0.70-1.30 [facility] Comment on above: Order Comment: No: D o not add to previous draw Performed By: #### 5 6101 #### [facility] [address] [place] [address], [place] GFR/1.73 sq M predicted among blacks MDRD (S/P/Bld) [Vol rate/Area] 7 ml/min/1.73sq m Abnormal >60 [facility] Comment on above: Order Comment: No: D o not add to previous draw Result Comment: Calc ulation may not be valid for patients over 70 years Performed By: #### 5 6101 #### [facility] [address] [place] [address], [place] GFR/1.73 sq M predicted among non-blacks MDRD (S/P/Bld) [Vol rate/Area] 6 ml/min/1.73sq m Abnormal >60 [facility] Comment on above: Order Comment: No: D o not add to previous draw Result Comment: Calc ulation may not be valid for patients over 70 years Performed By: #### 5 6101 #### [facility] [address] [place] [address], [place] Glucose [Mass/Vol] 103 mg/dL High 70-100 [facility] Comment on above: Order Comment: No: D o not add to previous draw Performed By: #### 5 6101 #### [facility] [address] [place] [address], [place] Potassium [Moles/Vol] 3.5 mmol/L Normal 3.5-5.1 [facility] Comment on above: Order Comment: No: D o not add to previous draw Performed By: #### 5 6101 #### [facility] [address] [place] [address], [facility] Sodium [Moles/Vol] 141 mmol/L Normal 136-145 [facility] Comment on above: Order Comment: No: D o not add to previous draw Performed By: #### 5 6101 #### [facility] [address] [place] [address], [facility] Urea nitrogen [Mass/Vol] 85 mg/dL High 7-25 [facility] Comment on above: Order Comment: No: D o not add to previous draw Performed By: #### 5 6101 #### [facility] [address] [place], [place] [address] CBC COMPLETE BLOOD COUNTon 11-12-2019 Erythrocyte distribution width (RBC) [Ratio] 15.8 % High 11.5-15.0 [facility] Comment on above: Order Comment: No: D o not add to previous draw Performed By: #### 3 0478 #### [facility] [address] [place] [address], [facility] Hematocrit (Bld) [Volume fraction] 23.6 % Low 39.0-50.0 [facility] Comment on above: Order Comment: No: D o not add to previous draw Performed By: #### 3 0478 #### [facility] [address] [place] [address], [facility] Hemoglobin (Bld) [Mass/Vol] 7.8 g/dL Low 13.0-17.0 [facility] Comment on above: Order Comment: No: D o not add to previous draw Performed By: #### 3 0478 #### [facility] [address] [place] [address], [facility] MCH (RBC) [Entitic mass] 31.3 pg Normal 27.0-33.0 [facility] Comment on above: Order Comment: No: D o not add to previous draw Performed By: #### 3 0478 #### [facility] [address] [place] [address], [facility] MCHC (RBC) [Mass/Vol] 33.1 g/dL Normal 32.0-35.0 [facility] Comment on above: Order Comment: No: D o not add to previous draw Performed By: #### 3 0478 #### [facility] [address] [place] [id number], [facility] MCV (RBC) [Entitic vol] 94.8 fL Normal 82.0-98.0 [facility] Comment on above: Order Comment: No: D o not add to previous draw Performed By: #### 3 0478 #### [facility] [address] [facility] [place] [id number], [facility] Nucleated RBC/100 WBC (Bld) [Ratio] 0 % Normal 0-0 [facility] Comment on above: Order Comment: No: D o not add to previous draw Performed By: #### 3 0478 #### [facility] [address] [facility] [place] [id number], [facility] PLAT CNT 176 10*3/uL Normal 150-400 [facility] Comment on above: Order Comment: No: D o not add to previous draw Performed By: #### 3 0478 #### [facility] [address] [facility] [place] [address], [facility] RBC (Bld) [#/Vol] 2.49 10*6/uL Low 4.20-5.70 [facility] Comment on above: Order Comment: No: D o not add to previous draw Performed By: #### 3 0478 #### [facility] [address] [place] [id number], [facility] WBC (Bld) [#/Vol] 5.72 10*3/uL Normal 4.00-10.60 [facility] Comment on above: Order Comment: No: D o not add to previous draw Performed By: #### 3 0478 #### [facility] [address] [place] [address], [facility] MAGNESIUM BLOODon 09-12-2020 Magnesium [Mass/Vol] 2.0 mg/dL Normal 1.9-2.7 [facility] Comment on above: Order Comment: No: D o not add to previous draw Performed By: #### 5 6101 #### [facility] [address] [place] [address], [place] URINALYSIS REFLEXon 09-12-20 20 Appearance (U) CLEAR Normal CLEAR [facility] Comment on above: Order Comment: [place] nephrosis, please assess for hydronephrosis resolution Performed By: #### 3 0965 ####[facility] [place] [address], [facility] Bilirubin [Mass/Vol] Negative Normal NEGATIVE [facility] Comment on above: Order Comment: [place] nephrosis, please assess for hydronephrosis resolution Performed By: #### 3 0965 ####[facility] [place] [address], [facility] BLOOD LARGE Abnormal NEGATIVE [facility] Comment on above: Order Comment: [place] nephrosis, please assess for hydronephrosis resolution Performed By: #### 3 0965 ####[facility] [place] [address], [place] Color (U) STRAW Abnormal YELLOW [facility] Comment on above: Order Comment: [place] nephrosis, please assess for hydronephrosis resolution Performed By: #### 3 0965 ####[facility] [place] [address], [place] EPIS NONE SEEN Normal FEW,OCC,NON E SEEN [facility] Comment on above: Order Comment: [place] nephrosis, please assess for hydronephrosis resolution Performed By: #### 3 0965 ####[facility] [place] [address], [facility] Glucose [Mass/Vol] 50 mg/dL Abnormal NEGATIVE [facility] Comment on above: Order Comment: [place] nephrosis, please assess for hydronephrosis resolution Performed By: #### 3 0965 ####[facility] [place] [address], [place] KETONE Negative Normal NEGATIVE [facility] Comment on above: Order Comment: [place] nephrosis, please assess for hydronephrosis resolution Performed By: #### 3 0965 ####[facility] [place] [address], [place] LEUK DEJAH SMALL Abnormal NEGATIVE [facility] Comment on above: Order Comment: [place] nephrosis, please assess for hydronephrosis resolution Performed By: #### 3 0965 ####[facility] [place] [address], [facility] Nitrite Ql (U) Negative Normal NEGATIVE [facility] Comment on above: Order Comment: [place] nephrosis, please assess for hydronephrosis resolution Performed By: #### 3 0965 ####[facility] [facility] [place] [address], [facility] pH (Bld) 7.0 Normal 5.0-8.0 [facility] Comment on above: Order Comment: [place] nephrosis, please assess for hydronephrosis resolution Performed By: #### 3 0965 ####[facility] [place] [address], [facility] Protein (U) [Mass/Vol] 30 mg/dL Abnormal NEGATIVE [facility] Comment on above: Order Comment: [place] nephrosis, please assess for hydronephrosis resolution Performed By: #### 3 0965 ####[facility] [place] [address], [place] RBC (U) [#/Vol] 51-100 Abnormal NONE SEEN [facility] Comment on above: Order Comment: [place] nephrosis, please assess for hydronephrosis resolution Performed By: #### 3 0965 ####[facility] [place] [address], [facility] SPEC GRAV 1.008 Low 1.015-1.020 [facility] Comment on above: Order Comment: [place] nephrosis, please assess for hydronephrosis resolution Performed By: #### 3 0965 ####[facility] [place] [address], [facility] WBC UA 6-10 Abnormal NONE SEEN [facility] Comment on above: Order Comment: [place] nephrosis, please assess for hydronephrosis resolution Performed By: #### 3 0965 ####[facility] BASIC METABOLIC PANELon 11-0 9-2020 Calcium [Mass/Vol] 8.6 mg/dL Normal 8.6-10.3 [facility] Comment on above: Order Comment: [place] nephrosis, please assess for hydronephrosis resolution Performed By: #### 4 1000, 83648, 47181 ####[facility] [place] [address], [facility] Chloride [Moles/Vol] 103 mmol/L Normal 98-107 [facility] Comment on above: Order Comment: [place] nephrosis, please assess for hydronephrosis resolution Performed By: #### 4 1000, 62173, 82326 ####[facility] [place] [address], [facility] CO2 [Moles/Vol] 23 mmol/L Normal 21-31 [facility] Comment on above: Order Comment: [place] nephrosis, please assess for hydronephrosis resolution Performed By: #### 4 1000, 04842, 62577 ####[facility] [place] [address], [facility] Creatinine [Mass/Vol] 9.15 mg/dL Critically high 0.70-1.30 [facility] Comment on above: Order Comment: [place] nephrosis, please assess for hydronephrosis resolution Performed By: #### 4 1000, 53407, 45751 ####[facility] [place] [address], [facility] GFR/1.73 sq M predicted among blacks MDRD (S/P/Bld) [Vol rate/Area] 7 ml/min/1.73sq m Abnormal >60 [facility] Comment on above: Order Comment: [place] nephrosis, please assess for hydronephrosis resolution Result Comment: Calc ulation may not be valid for patients over 70 years Performed By: #### 4 1000, 94013, 32930 ####[facility] [place] [address], [facility] GFR/1.73 sq M predicted among non-blacks MDRD (S/P/Bld) [Vol rate/Area] 6 ml/min/1.73sq m Abnormal >60 [facility] Comment on above: Order Comment: [place] nephrosis, please assess for hydronephrosis resolution Result Comment: Calc ulation may not be valid for patients over 70 years Performed By: #### 4 1000, 40435, 70861 ####[facility] [facility] [place] [address], [facility] Glucose [Mass/Vol] 136 mg/dL High 70-100 [facility] Comment on above: Order Comment: [place] nephrosis, please assess for hydronephrosis resolution Performed By: #### 4 1000, 52536, 20853 ####[facility] [place] [address], [place] Potassium [Moles/Vol] 4.0 mmol/L Normal 3.5-5.1 [facility] Comment on above: Order Comment: [place] nephrosis, please assess for hydronephrosis resolution Performed By: #### 4 1000, 80817, 82739 ####[facility] [place] [address], [place] Sodium [Moles/Vol] 139 mmol/L Normal 136-145 [facility] Comment on above: Order Comment: [place] nephrosis, please assess for hydronephrosis resolution Performed By: #### 4 1000, 90986, 85907 ####[facility] Urea nitrogen [Mass/Vol] 97 mg/dL High 7-25 [facility] Comment on above: Order Comment: [place] nephrosis, please assess for hydronephrosis resolution Performed By: #### 4 1000, 98725, 62560 ####[facility] CBC W/DIFFon 09-11-2020 ABS BASOPHILS 0.0 10*3/uL Normal 0.0-0.2 [facility] Comment on above: Order Comment: No: D o not add to previous draw Performed By: #### 5 0103 #### [facility] [address] [place] [address], [facility] ABS IMM GRANS 0.0 10*3/uL Normal 0.0-0.2 [facility] Comment on above: Order Comment: No: D o not add to previous draw Performed By: #### 5 0103 #### [facility] [address] [place] [address], [facility] ABS NEUTROPHILS 4.4 10*3/uL Normal 1.6-7.6 [facility] Comment on above: Order Comment: No: D o not add to previous draw Performed By: #### 5 0103 #### [facility] [address] [place] [address], [facility] Basophils/100 WBC (Bld) 0.2 % Normal 0.0-1.0 [facility] Comment on above: Order Comment: No: D o not add to previous draw Performed By: #### 5 0103 #### [facility] [address] [facility] [place] [address], [facility] Eosinophils (Bld) [#/Vol] 0.0 10*3/uL Normal 0.0-0.5 [facility] Comment on above: Order Comment: No: D o not add to previous draw Performed By: #### 5 0103 #### [facility] [address] [place] [address], [facility] Eosinophils/100 WBC (Bld) 0.2 % Normal 0.0-6.0 [facility] Comment on above: Order Comment: No: D o not add to previous draw Performed By: #### 5 0103 #### [facility] [address] Erythrocyte distribution width (RBC) [Ratio] 15.7 % High 11.5-15.0 [facility] Comment on above: Order Comment: No: D o not add to previous draw Performed By: #### 5 0103 #### [facility] [address] Hematocrit (Bld) [Volume fraction] 21.2 % Low 39.0-50.0 [facility] Comment on above: Order Comment: No: D o not add to previous draw Performed By: #### 5 0103 #### [facility] [address] [facility] [place] [address], [facility] Hemoglobin (Bld) [Mass/Vol] 7.3 g/dL Low 13.0-17.0 [facility] Comment on above: Order Comment: No: D o not add to previous draw Performed By: #### 5 0103 #### [facility] [address] [place] [address], [facility] IMMATURE GRANS 0.2 % Normal 0.0-1.0 [facility] Comment on above: Order Comment: No: D o not add to previous draw Performed By: #### 5 0103 #### [facility] [address] [place] [address], [facility] Lymphocytes (Bld) [#/Vol] 0.7 10*3/uL Low 1.2-4.0 [facility] Comment on above: Order Comment: No: D o not add to previous draw Performed By: #### 5 0103 #### [facility] [address] [place] [address], [facility] Lymphocytes/100 WBC (Bld) 13.2 % Low 20.0-45.0 [facility] Comment on above: Order Comment: No: D o not add to previous draw Performed By: #### 5 0103 #### [facility] [address] [place] [id number], [facility] MCH (RBC) [Entitic mass] 31.7 pg Normal 27.0-33.0 [facility] Comment on above: Order Comment: No: D o not add to previous draw Performed By: #### 5 0103 #### [facility] [address] [facility] [place] [id number], [facility] MCHC (RBC) [Mass/Vol] 34.4 g/dL Normal 32.0-35.0 [facility] Comment on above: Order Comment: No: D o not add to previous draw Performed By: #### 5 0103 #### [facility] [address] [facility] [place] [id number], [facility] MCV (RBC) [Entitic vol] 92.2 fL Normal 82.0-98.0 [facility] Comment on above: Order Comment: No: D o not add to previous draw Performed By: #### 5 0103 #### [facility] [address] [facility] [place] [address], [facility] Monocytes (Bld) [#/Vol] 0.2 10*3/uL Normal 0.1-1.0 [facility] Comment on above: Order Comment: No: D o not add to previous draw Performed By: #### 5 0103 #### [facility] [address] [place] [id number], [facility] MONOS 4.3 % Low 5.0-12.0 [facility] Comment on above: Order Comment: No: D o not add to previous draw Performed By: #### 5 0103 #### [facility] [address] [place] [id number], [facility] Neutrophils/100 WBC (Bld) 81.9 % High 40.0-72.0 [facility] Comment on above: Order Comment: No: D o not add to previous draw Performed By: #### 5 0103 #### [facility] [address] [place] [id number], [facility] Nucleated RBC/100 WBC (Bld) [Ratio] 0 % Normal 0-0 [facility] Comment on above: Order Comment: No: D o not add to previous draw Performed By: #### 5 0103 #### [facility] [address] [place] [address], [facility] PLAT CNT 167 10*3/uL Normal 150-400 [facility] Comment on above: Order Comment: No: D o not add to previous draw Performed By: #### 5 0103 #### [facility] [address] [place] [address], [facility] RBC (Bld) [#/Vol] 2.30 10*6/uL Low 4.20-5.70 [facility] Comment on above: Order Comment: No: D o not add to previous draw Performed By: #### 5 0103 #### [facility] [address] [place] [address], [place] WBC (Bld) [#/Vol] 5.32 10*3/uL Normal 4.00-10.60 [facility] Comment on above: Order Comment: No: D o not add to previous draw Performed By: #### 5 0103 #### [facility] [address] [place] [address], [place] CREATININE URINE RANDOMon Creatinine [Mass/Vol] 56.0 mg/dL Normal [facility] Comment on above: Order Comment: No: D o not add to previous draw Result Comment: Ther e are no established reference values for random urine specimens Performed By: #### 5 6101 #### [facility] [address] [place] [address], [facility] Coding Summary.on 09-11-2020 Coding Summary. CODING DATE: 020 FINAL [facility] STATUS: Short-Term Hosp as IP PAYOR: Medicare APC DESCRIPTION 8005 CT and CTA without Contrast Composite 5693 Level 3 Drug Administration 5691 Level 1 Drug Administration 5041 Critical Care 9512 RBC leukocytes reduced ADMIT DX: REASON FOR VISIT DX: S09.90XA Unspecified injury of head, initial encounter FINAL DX: PRINCIPAL: S09.90XA Unspecified injury of head, initial encounter SECONDARY: S01.112A Laceration without foreign body of left eyelid and periocular area, initial encounter S01.511A Laceration without foreign body of lip, initial encounter W19.XXXA Unspecified fall, initial encounter N17.9 Acute kidney failure, unspecified D64.9 Anemia, unspecified PYMT PROC APC STAT DESCRIPTION DOCTOR NAME DATE NOTE: The code number assigned matches the documented diagnosis and / or procedure in the patient's chart. However, the narrative phrase printed from the coding software may appear abbreviated, or result in slightly different terminology. Revised Coded By: Arianne Bethea Revised Date Saved: 09/11/2020 01:43 pm Normal [facility] Consent for Blood Transfusio non 09-11-2020 Consent for Blood Transfusion [id number] CD:127 Normal [facility] Consultationon 09-11-2020 Consultation MR#: [id number] [facility] Pt. Name: Chano Gomez Date of Service: 09/11/2020 Room #: 4AB [id number] Birthdate: 1945 Referring Physician: CONSULTATION ATTENDING PHYSICIAN: Juanjo Maravilla M.D. CHIEF COMPLAINT: Acute urinary retention HISTORY OF PRESENT ILLNESS: This is a 75-year-old male, transferred from outside facility for higher acuity of care. He was admitted status post unwitnessed fall. It is unclear how long the patient was on the floor and per the patient, he has no recollection of falling down. He denies any seizure-like activity, stroke prior to fall. Urology is consulted for acute urinary retention. At an outside facility, a Bernal catheter was placed for over 2 L and the patient was noted to have a hemoglobin of 5.8, as well as elevated creatinine of 11. The patient denies any past medical conditions, but of note has not been following up regularly with a physician for an extended period of time. He denies any melena, hematochezia, hematemesis, or hematuria. He denies any baseline voiding dysfunction and denies any urinary urgency, frequency, dysuria, weak stream, or incomplete emptying. He denies any chest pain, shortness of breath. He denies any suprapubic tenderness, fevers, chills, or coughing. Of note, the patient states that he has had decreased appetite as well as unintentional weight loss of about 20 pounds over the last few months. PAST MEDICAL HISTORY: None. PAST SURGICAL HISTORY: None. SOCIAL HISTORY: Occasional cigar smoker, no current alcohol or recreational drug use. FAMILY HISTORY: Noncontributory. REVIEW OF SYSTEMS: CONSTITUTIONAL: Negative for fevers, chills. Positive for unintentional weight loss. HEAD: Positive for headaches, head laceration. NECK: Denies any thyroid swelling or neck pain. CHEST: Denies any shortness of breath. CARDIOVASCULAR: Denies any palpitations, syncopal episode. Positive for dizziness. ABDOMEN: Denies any bowel habit changes, no melena. No diarrhea or constipation. : Denies any dysuria, urinary urgency, frequency, or any other further voiding dysfunction. EXTREMITIES: Denies any peripheral edema, loss of the sensation, loss of palpable pulses. PHYSICAL EXAMINATION: GENERAL APPEARANCE: Well-developed and well-nourished, in no acute distress. HEAD: Right superior aspect of head with laceration, has orbital ecchymosis around the left eye. NECK: Supple. RESPIRATORY: Normal respiratory effort. CARDIOVASCULAR: Regular rate and rhythm, normal peripheral pulses. ABDOMEN: Soft, nontender with no guarding or rigidity noted. : Bernal catheter in place with translucent light pink urine present. SKIN: No rashes in exposed skin. EXTREMITIES: No peripheral edema noted. LABS: Sodium 135, potassium 4.3, chloride 102, CO2 is 18, BUN 107, creatinine 9.8, glucose 143, calcium 9.0. Hemoglobin 8.0, WBC 6.18. MEDICATIONS: Acetaminophen, docusate sodium, bisacodyl, clonidine. IMAGING: CT abdomen and pelvis shows no evidence of acute traumatic injury to the chest, abdomen, or pelvis. There is prominent dilatation of the renal pelvocalyceal system and ureters bilaterally without evidence of radiopaque ureteral calculus. The prostate is enlarged and may be the cause of obstructive uropathy. Free fluid in the abdomen, no evidence of free air. No evidence of acute or recent fracture. ASSESSMENT AND PLAN: This is a 75-year-old male, presenting with acute urinary retention with Bernal catheter placed for 2 L. PLAN: 1. Monitor and trend creatinine, replete electrolytes p.r.n.; appreciate Nephrology and Medicine recommendations for this. 2. Pain and nausea control p.r.n. 3. Trend hemoglobin. 4. Follow up on urinalysis and urine culture. 5. In the setting of constitutional symptoms along with acute urinary retention, the patient may benefit from a PSA check to assess for any underlying metastatic disease such as prostate adenocarcinoma. 6. Renal ultrasound in a few days to assess for resolution of hydronephrosis. 7. Maintain Bernal catheter for at least 2 weeks. Thank you for this consultation. Please feel free to reach out to Urology should you have any questions. Electronically Signed by: Juanjo Maravilla MD 10/11/2020 04:25 P ____ Juanjo Maravilla MD I personally saw this patient on the day of the encounter, performed the vasquez portion(s) of the service and participated in the management and confirm the resident's documentation. Please note there may be an additional personal documentation from me. Date Dict: 09/11/2020/08:36 A/Tone Travis MD Date Trans: 09/11/2020 09:42 A/jhonatan DN_[id number] Normal [facility] ED Traumaon 09-11-2020 ED Trauma [id number] CD:127 Normal [facility] EMS Documentationon 09-11-20 20 EMS Documentation [id number] CD:127 Normal [facility] FERRITINon 09-11-2020 Ferritin [Mass/Vol] 285 ng/mL Normal 24-336 [facility] Comment on above: Performed By: #### 8 4046, 30990, 28042, 52871, 04363 ####[facility] FOLATE SERUMon 09-11-2020 Folate [Mass/Vol] 14.64 ng/mL Normal 6.60-1000. 0 0 [facility] Comment on above: Result Comment: Norm al range reflects World Health Organization International Standard Performed By: #### 8 4046, 40493, 89909, 07909, 10720 ####[facility] HAPTOGLOBINon 09-11-2020 HAPTOGLOBIN 30 mg/dL Normal 26-164 [facility] Comment on above: Order Comment: Yes: Add to Previous draw if able Performed By: #### 3 1509, 02244 #### [facility] [address] HEMOGLOBINon 09-11-2020 Hemoglobin (Bld) [Mass/Vol] 7.7 g/dL Low 13.0-17.0 [facility] Comment on above: Order Comment: No: D o not add to previous draw Performed By: #### 1 0008 #### [facility] [address] [place] [address], [facility] Hemoglobin (Bld) [Mass/Vol] 7.0 g/dL Low 13.0-17.0 [facility] Comment on above: Order Comment: The A ptima SARS-CoV-2 assay is a nucleic acid amplification test intended for the qualitative detection of RNA from SARS-CoV-2 isolated and purified from nasopharyngeal (FOOTWEAR PRODUCTION MACHINE OPERATOR),oropharyngeal (OP), nasal swab, sputum, and bronchoalveolar lavage (BAL) specimens from patients with signs and symptoms of infection who are suspected of COVID-19. Results are for the identification of SARS-CoV-2 RNA. The SARS-CoV-2 RNA is generally detectable during the acute phase of infection. The Aptima SARS-CoV-2 Assay on the [place] and [place] Fusion system is intended for use by laboratory personnel specifically instructed and trained in the operation of the [place] [employer] [place] [employer] system. The Aptima SARS-CoV-2 assay is only for use under the Food and Drug Administration Emergency Use Authorization. Testing is limited to laboratories certified under the Clinical Laboratory Improvement Amendments of 1988 (CLIA), 42 U.S.C. ???263a, to perform high complexity tests. Not Detected: Not detected does not preclude SARS-CoV-2 infection and should not be used as the sole basis for patient management decisions. Not detected results must be combined with clinical observations, patient history, and epidemiological information. Performed By: #### 3 1792 #### [facility] [address] Hemoglobin (Bld) [Mass/Vol] 7.4 g/dL Low 13.0-17.0 [facility] Comment on above: Order Comment: No: D o not add to previous draw Performed By: #### 3 0478 #### [facility] [address] Hemoglobin (Bld) [Mass/Vol] 8.0 g/dL Low 13.0-17.0 [facility] Comment on above: Order Comment: No: D o not add to previous draw Performed By: #### 3 1509, 30566 #### [facility] [address] LDH BLOODon 09-11-2020 LDH 217 Units/L Normal 140-271 [facility] Comment on above: Order Comment: Yes: Add to Previous draw if able Performed By: #### 8 4046, 71530, 30654, 73547, 71779 ####[facility] [place] [address], [facility] MAGNESIUM BLOODon 09-11-2020 Magnesium [Mass/Vol] 2.1 mg/dL Normal 1.9-2.7 [facility] Comment on above: Order Comment: Windsor nephrosis, please assess for hydronephrosis resolution Performed By: #### 4 1000, 78187, 62416 ####[facility] [facility] [place] [place] [address], [facility] PHOSPHORUS BLOODon 0 Phosphate [Mass/Vol] 6.4 mg/dL High 2.5-5.0 [facility] Comment on above: Order Comment: No: D o not add to previous draw Performed By: #### 4 1000, 34920, 80332 ####[facility] [facility].[address] Path. Reviewon 09-11-2020 Path Review Anemia with no incre ase of reticulocytes. [facility] Comment on above: Order Comment: Order Added by Discern Expert. Performed By: #### 2 563509, 92870810, 3221208, 2083179, 9607066, 6193888, 5052474, 4114787, 1266889, 32332420, 1217090, 99190380, 11580943, 7894559 ####[facility] [address] [place] [address] RETICULOCYTE PANELon 020 ABSOLUTE RETICULOCYTE 0.0425 10*6/uL Normal 0.02 50-0.10 00 [facility] Comment on above: Performed By: #### 3 1509, 75465 #### [facility] [address] [facility] [place] [place] [address], [facility] IMMATURE RETICULOCYTE FRACTION 9.3 % Normal 2.0-16.0 [facility] Comment on above: Performed By: #### 3 1509, 09108 #### [facility] [address] [place] [address], [facility] RETIC COUNT 1.64 % Normal 0.50-1.80 [facility] Comment on above: Performed By: #### 3 1509, 39375 #### [facility] [address] [place] [address], [facility] RETICULOCYTE HEMOGLOBIN 37.3 pg High 28.0-36.0 [facility] Comment on above: Performed By: #### 3 1509, 17714 #### [facility] [address] [place] [address], [facility] SODIUM URINE RANDOMon 2019 Sodium (U) [Moles/Vol] 66 mmol/L Normal [facility] Comment on above: Order Comment: No: D o not add to previous draw Result Comment: Ther e are no established reference values for random urine specimens Performed By: #### 5 0608 #### [facility] [address] [place] [address], [facility] T PROT UR Kayden 09-11-2020 Protein [Mass/Vol] 400.0 mg/dL Normal [facility] Comment on above: Order Comment: No: D o not add to previous draw Result Comment: Ther e are no established reference values for random urine specimens Performed By: #### 5 6101 #### [facility] [address] [facility] [place] [address], [facility] TIBC- INCLUDES IRONon 2019 FE SATURATION 20 % Normal 20-50 [facility] Comment on above: Performed By: #### 8 4046, 63425, 12632, 62711, 63635 ####[facility] [facility] [place] [address], [facility] Iron [Mass/Vol] 52 ug/dL Normal 50-212 [facility] Comment on above: Performed By: #### 8 4046, 17338, 06939, 77725, 14386 ####[facility] [facility] [place] [address], [facility] TIBC 258 mcg/dL Normal 250-450 [facility] Comment on above: Performed By: #### 8 4046, 26880, 12689, 62606, 50262 ####[facility] [place] [address], [facility] UIBC 206 mcg/dL Normal 155-355 [facility] Comment on above: Performed By: #### 8 4046, 96118, 55818, 87888, 92418 ####[facility] [place] [address], [facility] US RENALon 09-11-2020 RENAL [facility] Department of Radiology [address] [place] [id number] ===== Patient Name: CHANO GOMEZ : 1945 Sex: M Age: Race: White Pt. Location: [address] [place] [address] Patient Status: I Ordered Date: 09/11/2020 2:00:00 AM Completed Date: 09/11/2020 09:24 AM Requesting Provider: FRANC MCCLOUD Attending Provider: RUSTY SANDOVAL Report Copy To: Signs & Symptoms: Increased Creatinine History: See Comments Comments: Hydronephrosis Exam: US RENAL ===== US RENAL 09/11/2020 9:24 AM CLINICAL INDICATIONS: Increased Creatinine TECHNOLOGIST COMMENTS: QUESTION FOR THE RADIOLOGIST: Hydronephrosis TECHNIQUE: Limited retroperitoneal ultrasound. COMPARISON: none FINDINGS: There is moderate collecting system dilatation in the right kidney and severe collecting system dilatation in the left kidney. No focal renal lesions are depicted. The right kidney measures 9.7 cm in length and the left kidney 11.1 cm. While scanning the right kidney incidental note is made of simple liver cysts that measure up to 2 cm. The bladder is collapsed around a Bernal catheter balloon. The bladder appears markedly and diffusely thickened, even allowing for its collapsed state. IMPRESSION: Bilateral hydronephrosis, moderate on the right and severe on the left. Diffuse prominent thickening of the urinary bladder. Electronically signed: Harinder Mancilla. Transcribed by: [email or web address], User Resident: Electronically Signed by: HARINDER MANCILLA @ 09/11/2020 12:14 PM Normal [facility] Comment on above: Order Comment: Windsor nephrosis, please assess for hydronephrosis resolution VITAMIN B12on 09-11-2020 Cobalamin (Vitamin B12) [Mass/Vol] 356 pg/mL Normal 180-914 [facility] Comment on above: Result Comment: REFE RENCE RANGES: 180-914 pg/mL Normal 145-179 pg/mL Indeterminate <145 pg/mL Deficient Performed By: #### 8 4046, 86467, 79234, 35552, 71509 ####[facility] *SARS-CoV-2 COVID-19on 09-10 [id number] Not Detected Normal Not Detected [facility] Comment on above: Order Comment: The A ptima SARS-CoV-2 assay is a nucleic acid amplification testintended for the qualitative detection of RNA from SARS-CoV-2 isolatedand purified from nasopharyngeal (FOOTWEAR PRODUCTION MACHINE OPERATOR),oropharyngeal (OP), nasal swab,sputum, and bronchoalveolar lavage (BAL) specimens from patients withsigns and symptoms of infection who are suspected of COVID-19.Results are for the identification of SARS-CoV-2 RNA. The SARS-CoV-2 RNAis generally detectable during the acute phase of infection.The Aptima SARS-CoV-2 Assay on the [place] [employer] [place] [employer] system isintended for use by laboratory personnel specifically instructed andtrained in the operation of the [place] [employer] [place] Fusion system. TheAptima SARS-CoV-2 assay is only for use under the Food and DrugAdministration Emergency Use Authorization. Testing is limited tolaboratories certified under the Clinical Laboratory ImprovementAmendments of 1988 (CLIA), 42 U.S.C. ???263a, to perform high complexitytests.Not Detected:Not detected does not preclude SARS-CoV-2 infection and should not beused as the sole basis for patient management decisions. Not detectedresults must be combined with clinical observations, patient history,and epidemiological information. Performed By: #### 1 0008 #### [facility] [address] [place] [address], [facility] ABO/Rhon 09-10-2020 ABO/Rh Positive [facility] Comment on above: Performed By: #### 1 0980672, 61273442, 3331480, 17380818 #### [facility] Laboratory [address] [place] [address] ABO/Rh History Checkon 09-10 ABO/Rh History Check Type verified by se cond s Normal [facility] Comment on above: Performed By: #### 1 1462427, 20156375, 3138223, 75932348 ####[facility] [address] [place] [address] ABO/Rh Retypeon 09-10-2020 ABO/Rh Retype Interp Positive Fish [facility] Comment on above: Performed By: #### 1 1962247 ####[facility] [address] [place] [address] ABSCon 09-10-2020 ABSC Gel Interp Negative Normal [facility] [place] [facility] Comment on above: Performed By: #### 1 3458701, 99525830, 8664902, 18546265 ####[facility] [address] [place] [address] APTTon 09-10-2020 aPTT Coag (Bld) [Time] 27.3 s Normal 25.0-35.0 [facility] Comment on above: Result Comment: ALL RESULTS MUST BE INTERPRETED WITH RESPECT TO BLOOD DRAWING ARTIFACT OR DILUTION ERROR OF ANTICOAGULANT AT THE TIME OF SAMPLING. THE APTT SHOULD NOT BE USED TO MONITOR UNFRACTIONATED HEPARIN THERAPY, THIS LABORATORY NO LONGER HAS AN ESTABLISHED THERAPEUTIC RANGE BASED ON THE APTT. IT IS RECOMMENDED THAT THE UFH - HEPARIN ASSAY (ANTI-XA ACTIVITY) BE USED FOR THIS PURPOSE. Performed By: #### 3 1509, 04064 #### [facility] [place] [address], [facility] Auto Diffon 09-10-2020 Basophils/100 WBC (Bld) 0.8 % Normal 0.0-2.0 [facility] Comment on above: Order Comment: Order Added by Discern Expert. Performed By: #### 2 455071, 97894794, 0089363, 8110164, 7549971, 5544414, 1068091, 5692889, 6212257, 96121611, 5618239, 08948959, 99991915, 4233315 ####[facility] [address] [place] [address] Basophils/Leukocytes Auto (Bld) [Pure # fraction] 0.1 E9/L Normal 0.0-0.2 [facility] Comment on above: Order Comment: Order Added by Discern Expert. Performed By: #### 2 608063, 81775071, 1928597, 0612780, 2769043, 5257563, 0146880, 5780535, 4219601, 59255823, 5399008, 00148898, 26991741, 1323340 ####[facility] [address] [place] [address] Eosinophils/100 WBC (Bld) 1.7 % Normal 0.0-8.0 [facility] Comment on above: Order Comment: Order Added by Discern Expert. Performed By: #### 2 705494, 43582390, 1155278, 7046392, 7550013, 9746793, 6415047, 1323952, 9509288, 19424241, 5109962, 87117051, 98291763, 0954192 ####[facility] [address] [place] [address] Eosinophils/Leukocytes Auto (Bld) [Pure # fraction] 0.1 E9/L Normal 0.0-0.5 [facility] Comment on above: Order Comment: Order Added by Discern Expert. Performed By: #### 2 500472, 21220758, 0909339, 9739306, 0748375, 5864144, 9060809, 6237639, 7446778, 51000215, 2221331, 61916793, 71036318, 2495696 ####[facility] [address] [place] [address] Lymphocytes/100 WBC (Bld) 34.8 % Normal 14.0-50.0 [facility] Comment on above: Order Comment: Order Added by Discern Expert. Performed By: #### 2 716102, 20779263, 0768169, 4303878, 4530554, 5263342, 6125919, 3364952, 8725891, 51172185, 0157741, 37257235, 51991713, 7266296 ####[address] [place] [place] [address] Lymphocytes/Leukocytes Auto (Bld) [Pure # fraction] 2.2 E9/L Normal 1.0-4.0 [facility] Comment on above: Order Comment: Order Added by Discern Expert. Performed By: #### 2 711749, 79473411, 3620955, 6786175, 4119361, 9163178, 0412764, 2938146, 0862653, 98914326, 4665164, 51621712, 63520638, 8803293 ####[address] [place] [address] Monocytes/100 WBC (Bld) 4.9 % Normal 4.0-14.0 [facility] Comment on above: Order Comment: Order Added by Discern Expert. Performed By: #### 2 632249, 04560019, 0114404, 1537281, 5152055, 6239261, 5308575, 2998323, 3112538, 59319532, 3825982, 19245934, 42937913, 6647031 ####[address] [place] [address] Monocytes/Leukocytes Auto (Bld) [Pure # fraction] 0.3 E9/L Normal 0.2-1.0 [facility] Comment on above: Order Comment: Order Added by Discern Expert. Performed By: #### 2 393109, 10002623, 2013021, 8585164, 4808751, 5415706, 1002362, 9449023, 4489454, 59411891, 3400233, 53186822, 86124130, 2907829 ####[facility] [address] [place] [address] Neutrophils/100 WBC (Bld) 57.8 % Normal 36.0-75.0 [facility] Comment on above: Order Comment: Order Added by Discern Expert. Performed By: #### 2 262582, 20976541, 6172641, 6610765, 1246267, 3988478, 8320899, 2965720, 9910947, 03025013, 9090391, 43337112, 12391051, 6259950 ####[facility] [address] [place] [address] Neutrophils/Leukocytes Auto (Bld) [Pure # fraction] 3.6 E9/L Normal 2.0-7.5 [facility] Comment on above: Order Comment: Order Added by Discern Expert. Performed By: #### 2 423054, 75476011, 0472182, 4109374, 0504694, 4203075, 8442370, 7664541, 1894091, 96772631, 1051266, 49937747, 62693885, 1922999 ####[facility] [address] [place] [address] BMPon 09-10-2020 Urea nitrogen/Creatinine [Mass ratio] #syntax# 10-20 [facility] Comment on above: Performed By: #### 2 778661, 50369192, 2566717, 8874820, 5314786, 6439499, 0136413, 0826132, 9324376, 03759100, 4775740, 00662006, 81466186, 7368020 ####[facility] [address] [place] [address] Calcium [Mass/Vol] 9.0 mg/dL Normal 8.9-11.1 [facility] Comment on above: Performed By: #### 2 768891, 64976157, 3661602, 4254753, 5926254, 0008591, 6958841, 2751477, 9208914, 79535662, 6680981, 76937477, 32129302, 1153140 ####[facility] [address] [place] [address] Glucose [Mass/Vol] 167 mg/dL Normal 55-199 [facility] Comment on above: Result Comment: If t his glucose result represents a fasting glucose, interpretation should refer to the following reference range: 55-99 mg/dL Performed By: #### 2 266832, 36549827, 6059272, 5843271, 8713186, 6516703, 3110864, 2087294, 7078756, 05385123, 2033772, 75891182, 92833026, 9891887 ####[facility] [address] [place] [address] Chloride [Moles/Vol] 104 mmol/L Normal 101-111 [facility] Comment on above: Performed By: #### 2 405218, 04796241, 2233577, 3502535, 4968638, 4851958, 4039830, 3816137, 8626250, 33039772, 9459344, 31428058, 00009908, 0371007 ####[facility] [address] [place] [address] Potassium [Moles/Vol] 4.1 mmol/L Normal 3.5-5.3 [facility] Comment on above: Performed By: #### 2 026764, 87749231, 9400550, 9832551, 1866770, 8078867, 1938295, 5929345, 0531700, 46046181, 6236236, 80903974, 47926313, 6352644 ####[facility] [address] [place] [address] Sodium [Moles/Vol] 134 mmol/L Low 135-145 [facility] Comment on above: Performed By: #### 2 015288, 43597408, 7077730, 4209172, 3618179, 9216010, 5581364, 7653778, 4535745, 82568841, 8521200, 17871369, 36591454, 6823291 ####[facility] [address] [place] [address] Anion gap [Moles/Vol] 21 mmol/L High 6-16 [facility] Comment on above: Performed By: #### 2 278230, 08601702, 4694680, 6629743, 8223235, 5022242, 9628610, 3196855, 7807843, 00539782, 6456747, 32930778, 94549127, 0927799 ####[facility] [address] [place] [address] CO2 [Moles/Vol] 13 mmol/L Abnormal 21-31 [facility] Comment on above: Result Comment: Crit ical Result verified by repeat analysis\Critical Result S_CO2:13.0) Called to [facility]ONATH[facility] CASE AT ER by VICENTA DOWNS and read back for confirmation at 09/10/2020 10:40:4 Performed By: #### 2 187827, 01248548, 3392169, 3824954, 1011204, 2119565, 9829518, 2102789, 3364646, 36362779, 3183528, 43355693, 07157704, 0894649 ####[facility] [address] [place] [address] Creatinine [Mass/Vol] 11.2 mg/dL Abnormal 0.5-1.3 [facility] Comment on above: Result Comment: Crit ical Result verified by repeat analysis\Critical Result S_CREA:11.20 Called to JONATHAN CASE AT ER by VICENTA DOWNS And Read Back For Confirmation at: 09/10/2020 10:40:41 Performed By: #### 2 [id number], [id number], 3518156, 3645583, 1039794, 6812731, 0116392, 7196086, 4609079, 37704048, 8250403, 68409793, 61122341, 6563658 ####[facility] [address] [place] [address] Blood Bank ID#on 09-10-2020 BBID# [id number] [facility] Comment on above: Performed By: #### 1 [id number], [id number], [id number], [id number] ####[facility] [address] [place] [address] CBC W/DIFFon 09-10-2020 ABS BASOPHILS 0.0 10*3/uL Normal 0.0-0.2 [facility] Comment on above: Performed By: #### 1 0008 #### [facility] [address] ABS IMM GRANS 0.0 10*3/uL Normal 0.0-0.2 [facility] Comment on above: Performed By: #### 1 0008 #### [facility] [address] ABS NEUTROPHILS 5.3 10*3/uL Normal 1.6-7.6 [facility] Comment on above: Performed By: #### 1 0008 #### [facility] [address] Basophils/100 WBC (Bld) 0.2 % Normal 0.0-1.0 [facility] Comment on above: Performed By: #### 1 0008 #### [facility] [address] [place] [address], [facility] Eosinophils (Bld) [#/Vol] 0.0 10*3/uL Normal 0.0-0.5 [facility] Comment on above: Performed By: #### 1 0008 #### [facility] [address] [place] [address], [facility] Eosinophils/100 WBC (Bld) 0.0 % Normal 0.0-6.0 [facility] Comment on above: Performed By: #### 1 0008 #### [facility] 3000 [facility]. [address] Erythrocyte distribution width (RBC) [Ratio] 15.0 % Normal 11.5-15.0 [facility] Comment on above: Performed By: #### 1 0008 #### [facility] 3000 [facility]. [address] Hematocrit (Bld) [Volume fraction] 29.4 % Low 39.0-50.0 [facility] Comment on above: Performed By: #### 1 0008 #### [facility] 3000 [facility]. [address] Hemoglobin (Bld) [Mass/Vol] 10.0 g/dL Low 13.0-17.0 [facility] Comment on above: Performed By: #### 1 0008 #### [facility] 3000 [facility]. [address] IMMATURE GRANS 0.3 % Normal 0.0-1.0 [facility] Comment on above: Performed By: #### 1 0008 #### [facility] [address] [facility] [address] Lymphocytes (Bld) [#/Vol] 0.5 10*3/uL Low 1.2-4.0 [facility] Comment on above: Performed By: #### 1 0008 #### [facility] [address] [place] [address], [facility] Lymphocytes/100 WBC (Bld) 8.6 % Low 20.0-45.0 [facility] Comment on above: Performed By: #### 1 0008 #### [facility] [address] [facility] [place] [address], [facility] MCH (RBC) [Entitic mass] 31.5 pg Normal 27.0-33.0 [facility] Comment on above: Performed By: #### 1 0008 #### [facility] 3000 [facility]. [address] MCHC (RBC) [Mass/Vol] 34.0 g/dL Normal 32.0-35.0 [facility] Comment on above: Performed By: #### 1 0008 #### [facility] [address] [place] [address], [facility] MCV (RBC) [Entitic vol] 92.7 fL Normal 82.0-98.0 [facility] Comment on above: Performed By: #### 1 0008 #### [facility] [address] [place] [address], [facility] Monocytes (Bld) [#/Vol] 0.3 10*3/uL Normal 0.1-1.0 [facility] Comment on above: Performed By: #### 1 0008 #### [facility] [address] MONOS 4.5 % Low 5.0-12.0 [facility] Comment on above: Performed By: #### 1 0008 #### [facility] [address] Neutrophils/100 WBC (Bld) 86.4 % High 40.0-72.0 [facility] Comment on above: Performed By: #### 1 0008 #### [facility] [address] [place] [address], [facility] Nucleated RBC/100 WBC (Bld) [Ratio] 0 % Normal 0-0 [facility] Comment on above: Performed By: #### 1 0008 #### [facility] [address] [place] [address], [facility] PLAT CNT 155 10*3/uL Normal 150-400 [facility] Comment on above: Performed By: #### 1 0008 #### [facility] 3000 [facility] [place] [address], [facility] RBC (Bld) [#/Vol] 3.17 10*6/uL Low 4.20-5.70 [facility] Comment on above: Performed By: #### 1 0008 #### [facility] [address] [facility] [place] [address], [facility] WBC (Bld) [#/Vol] 6.18 10*3/uL Normal 4.00-10.60 [facility] Comment on above: Performed By: #### 1 0008 #### [facility] [address] [place] [address], [facility] CBC w/ Auto Diffon 0 Erythrocyte distribution width (RBC) [Ratio] 14.7 % High 10.9-14.2 [facility] Comment on above: Performed By: #### 2 670688, 52451499, 4598939, 2053416, 2359709, 9203066, 9127739, 2609270, 4894223, 60359500, 1128106, 89704784, 37351457, 8419239 ####[facility] [address] [place] [address] Hematocrit (Bld) [Volume fraction] 17.1 % Low 37.7-49.0 [facility] Comment on above: Performed By: #### 2 246191, 38431808, 9577250, 4046349, 5301380, 1383630, 2038079, 9588019, 9889835, 57982806, 0411737, 73540939, 57456711, 7848893 ####[facility] [address] [place] [address] Hemoglobin (Bld) [Mass/Vol] 5.8 g/dL Abnormal 13.5-17.5 [facility] Comment on above: Result Comment: Resu lts Verified By Repeat Analysis. Results Called To Marta Cam in ED By CMK And Read Back For Confirmation On 09/10/2020 10:39:49 EST. Performed By: #### 2 632329, 41006098, 2197865, 9753198, 4876598, 8325395, 1506265, 2899138, 6199098, 58462770, 1806905, 69530619, 54462248, 0522809 ####[facility] [address] [place] [address] MCH (RBC) [Entitic mass] 32.6 pg Normal 27.0-34.0 [facility] Comment on above: Performed By: #### 2 288843, 18841397, 9448415, 6098102, 3187965, 1197820, 2769481, 1214065, 7136621, 38355650, 6392038, 73653071, 31727446, 0699881 ####[facility] [address] [place] [address] MCHC (RBC) [Mass/Vol] 33.7 g/dL Normal 31.4-36.0 [facility] Comment on above: Performed By: #### 2 514103, 36450339, 7349661, 7399547, 3815864, 5969460, 6859709, 2627499, 7305599, 67804336, 5445754, 35759617, 83407373, 3102965 ####[facility] [address] [place] [address] MCV (RBC) [Entitic vol] 96.8 fL Normal 80.0-100.0 [facility] Comment on above: Performed By: #### 2 327704, 99940951, 2244663, 7542290, 7285637, 3729535, 7117549, 8464600, 8350381, 26929525, 4493328, 64857323, 70575794, 7895044 ####[facility] [address] [place] [address] Platelet mean volume (Bld) [Entitic vol] 10.3 fL Normal 6.4-10.8 [facility] Comment on above: Performed By: #### 2 376073, 69150871, 3312266, 7280419, 2726052, 8470031, 7828481, 2757003, 7191466, 96121481, 1867558, 46272405, 21501328, 3743853 ####[facility] [address] [place] [address] Platelets (Bld) [#/Vol] 202.0 E9/L Normal 150.0-500.0 [facility] Comment on above: Performed By: #### 2 645787, 45898484, 6918073, 7276294, 5117513, 5968689, 2381237, 4814172, 9236632, 11700847, 1303309, 29845907, 78906621, 2878281 ####[facility] [address] [place] [address] RBC (Bld) [#/Vol] 1.8 E12/L Low 4.3-5.9 [facility] Comment on above: Performed By: #### 2 648097, 07636265, 1315858, 0521543, 3602831, 8945123, 9304410, 7092335, 3165450, 70678680, 0633755, 66316866, 95278418, 2365063 ####[facility] [address] [place] [address] WBC corrected for nucl RBC Auto (Bld) [#/Vol] 6.2 E9/L Normal 4.0-11.0 [facility] Comment on above: Performed By: #### 2 035013, 50267529, 6766273, 4858851, 9454858, 7331489, 4268032, 8810843, 0769660, 83503773, 4249028, 46846886, 03569388, 6116679 ####[facility] [address] [place] [address] COMP METABOLIC PANELon 09-10 Albumin [Mass/Vol] 4.0 g/dL Normal 3.5-5.7 [facility] Comment on above: Performed By: #### 3 1509, 82127 #### [facility] [address] [place] [address], [place] ALKALINE PHOSPH 25 IU/L Low 34-104 [facility] Comment on above: Performed By: #### 3 1509, 38228 #### [facility] [address] [place] [address], [place] ALT [Catalytic activity/Vol] 9 U/L Normal 7-52 [facility] Comment on above: Performed By: #### 3 1509, 62520 #### [facility] [address] [place] [address], [place] AST [Catalytic activity/Vol] 9 U/L Low 13-39 [facility] Comment on above: Performed By: #### 3 150, 21825 #### [facility] [address] [place] [address], [place] Bilirubin [Mass/Vol] 0.5 mg/dL Normal 0.3-1.0 [facility] Comment on above: Performed By: #### 3 1509, 67851 #### [facility] [address] [place] [address], [place] Calcium [Mass/Vol] 9.0 mg/dL Normal 8.6-10.3 [facility] Comment on above: Performed By: #### 3 150, 64919 #### [facility] [address] [place] [address], [place] Chloride [Moles/Vol] 102 mmol/L Normal 98-107 [facility] Comment on above: Performed By: #### 3 1509, 47812 #### [facility] [address] [place] [address], [place] CO2 [Moles/Vol] 18 mmol/L Low 21-31 [facility] Comment on above: Performed By: #### 3 1509, 89150 #### [facility] [address] [place] [address], [place] Creatinine [Mass/Vol] 9.80 mg/dL Critically high 0.70-1.30 [facility] Comment on above: Performed By: #### 3 1509, 29899 #### [facility] [address] [place] [address], [place] GFR/1.73 sq M predicted among blacks MDRD (S/P/Bld) [Vol rate/Area] 6 ml/min/1.73sq m Abnormal >60 [facility] Comment on above: Result Comment: Calc ulation may not be valid for patients over 70 years Performed By: #### 3 1509, 75383 #### [facility] [address] [place] [address], [place] GFR/1.73 sq M predicted among non-blacks MDRD (S/P/Bld) [Vol rate/Area] 5 ml/min/1.73sq m Abnormal >60 [facility] Comment on above: Result Comment: Calc ulation may not be valid for patients over 70 years Performed By: #### 3 1509, 85708 #### [facility] [address] [place] [address], [place] Glucose [Mass/Vol] 143 mg/dL High 70-100 [facility] Comment on above: Performed By: #### 3 1509, 59253 #### [facility] [address] [place] [address], [place] Potassium [Moles/Vol] 4.3 mmol/L Normal 3.5-5.1 [facility] Comment on above: Performed By: #### 3 1509, 22058 #### [facility] [address] [place] [address], [place] Protein [Mass/Vol] 7.1 g/dL Normal 6.0-8.3 [facility] Comment on above: Performed By: #### 3 1509, 62073 #### [facility] [address] [place] [address], [facility] Sodium [Moles/Vol] 135 mmol/L Low 136-145 [facility] Comment on above: Performed By: #### 3 1509, 31072 #### [facility] [address] [place] [address], [facility] Urea nitrogen [Mass/Vol] 107 mg/dL High 7-25 [facility] Comment on above: Performed By: #### 3 1509, 66843 #### [facility] [address] [facility] [address] CPK-MB PROFILEon 09-10-2020 CK [Catalytic activity/Vol] 104 U/L Normal 30-223 [facility] Comment on above: Order Comment: No: D o not add to previous draw Performed By: #### 3 1509, 85417 #### [facility] [address] [place] [address], [facility] CK.MB [Mass/Vol] 5.7 ng/mL Critically high 0.0-1.9 [facility] Comment on above: Order Comment: No: D o not add to previous draw Performed By: #### 3 1509, 46176 #### [facility] [address] [facility] [place] [address], [facility] CK.MB [Mass/Vol] 5.9 ng/mL High 0.0-5.0 [facility] Comment on above: Order Comment: No: D o not add to previous draw Result Comment: IF T OTAL CK <200 U/L AND: 1. CKMB IS 5-10 NG/ML----BORDERLINE 2. CKMB IS >10 NG/ML----INDICATIVE OF [place] OR IF TOTAL CK >200 U/L AND CKMB INDEX >1.9----INDIC[place]IVE [place] Performed By: #### 3 1509, 94659 #### [facility] [address] [place], [place] [address] CT Abdomen/Pelvis w/o Justin rivers 09-10-2020 CT Abdomen/Pelvis w/o Contrast Exam Date/Time: 09/10/2020 11:05 EST Reason for Exam: Abdominal pain, acute, nonlocalized Report PLEASE REFER TO THE CT CHEST REPORT. All CT scans at this facility use dose modulation, iterative reconstruction, and/or weight based dosing when appropriate to reduce radiation dose to as low as reasonably achievable. FINAL REPORT Dictated: 09/10/2020 11:44 am Aneesh Samayoa M.D. Signed (Electronic Signature): 09/10/2020 11:44 am Signed by: Aneesh Samayoa M.D. Transcribed by: EUGENIE Technologist: GIBRAN Technical Comments GFR (mL/min/1/73m2) 5 Contrast: None Contrast amount in ml's: 0 Normal [facility] CT Chest w/o Contraston CT Chest w/o Contrast Exam Date/Time: 09/10/2020 11:05 EST Reason for Exam: Trauma Report IMPRESSION: NO EVIDENCE OF ACUTE TRAUMATIC INJURY OF THE CHEST, ABDOMEN, OR PELVIS ON THIS UNENHANCED STUDY. PROMINENT DILATATION OF RENAL PELVICALYCEAL SYSTEMS AND URETERS BILATERALLY, WITHOUT EVIDENCE OF RADIOPAQUE URETERAL CALCULUS. THE PROSTATE IS ENLARGED AND MAY BE THE CAUSE FOR THE OBSTRUCTIVE UROPATHY. FREE FLUID IN THE ABDOMEN. NO EVIDENCE OF FREE AIR. NO EVIDENCE OF ACUTE/RECENT FRACTURE. CLINICAL HISTORY: Trauma COMMENT: Unenhanced images were obtained. On an unenhanced study, there are limitations in the evaluation of vascular structures and vascular organs. There is ectasia of the ascending thoracic aorta, with greatest diameter of 3.9 cm. There are scattered calcifications of the aortic arch and descending thoracic aorta. The heart is within normal limits in size, but with prominence of left ventricle. There are coronary artery calcifications. There is no pericardial effusion. No mediastinal hematoma is evident. No mediastinal nor hilar lymphadenopathy is noted. There are a few mediastinal, right hilar, and right and left lung calcified granulomas. There are mild fibrotic changes of both lung apices. No pulmonary contusion, no pneumothorax, no consolidated airspace opacification, no lung mass, nor pleural effusion is evident. The liver is normal in size and configuration. There are multiple rounded areas of decreased attenuation scattered in the liver, variable in size, and the density is consistent with cysts. The spleen is unremarkable. There is no evidence of gross hepatic or splenic rupture or laceration on this unenhanced study. The pancreas, gallbladder, and adrenal glands are unremarkable. No renal nor ureteral calculus is evident on this exam. There is quite prominent dilatation of the right and left renal pelvicalyceal systems and both ureters. The kidneys are otherwise unremarkable. No retroperitoneal hematoma nor lymphadenopathy is evident. There are scattered arterial calcifications. The abdominal aorta is normal in diameter, without evidence of aneurysm. Evaluation of bowel is limited. The bowel loops are not dilated, and there is no evidence of bowel obstruction. The appendix is not identified, but there is no CT evidence of appendicitis. There is fecal material scattered throughout the colon, that limits evaluation. There is sigmoid diverticulosis, without evidence of diverticulitis. No abdominal inflammatory complex nor free air is noted. There is free intraperitoneal fluid, with fluid collecting from adjacent to the liver and spleen to the pelvis. Report The prostate is enlarged, and indents the base of bladder. There is a Bernal balloon catheter within the bladder lumen. There is gas within the bladder lumen, presumably related to the presence of the catheter. No bladder calculus is noted. No pelvic hematoma nor pelvic lymphadenopathy is evident. Bones are osteopenic. There is deformity of the inferior manubrium, consistent with an old fracture. No acute/recent sternal fracture is evident. No displaced or acute/recent rib fracture is evident. No pelvic bone fracture is noted. There are relatively mild hypertrophic degenerative arthritic changes of both hips. No hip fracture nor dislocation is evident. CT THORACIC SPINE: There are hypertrophic spurs of mid and lower thoracic vertebral bodies. The thoracic vertebral bodies are maintained in height. No thoracic spine fracture is noted. CT LUMBOSACRAL SPINE: There is prominent interspace narrowing at L5-S1. There are marginal hypertrophic spurs of the lumbar vertebral bodies. There are hypertrophic arthritic changes of lumbar facet joints. The lumbar vertebral bodies are maintained in height. No lumbosacral spine fracture nor subluxation is noted. All CT scans at this facility use dose modulation, iterative reconstruction, and/or weight based dosing when appropriate to reduce radiation dose to as low as reasonably achievable. FINAL REPORT Dictated: 09/10/2020 11:43 am Aneesh Samayoa M.D. Signed (Electronic Signature): 09/10/2020 11:43 am Signed by: Aneesh Samayoa M.D. Transcribed by: EUGENIE Technologist: GIBRAN Normal [facility] CT Head or Brain w/o Tony costello 09-10-2020 CT Head or Brain w/o Contrast Exam Date/Time: 09/10/2020 10:21 EST Reason for Exam: Head trauma, mod-severe;Other (please specify) Report IMPRESSION: CEREBRAL ATROPHIC CHANGES. FINDINGS CONSISTENT WITH A RELATIVELY SMALL OLD RIGHT FRONTOPARIETAL/SUPERIOR BASAL GANGLIA INFARCT. NONSPECIFIC CEREBRAL WHITE MATTER FINDINGS BILATERALLY. NO EVIDENCE OF RECENT INTRACRANIAL HEMORRHAGE. LEFT SUPRAORBITAL FRONTAL SCALP HEMATOMA. CLINICAL HISTORY: Head trauma, mod-severe. COMMENT: Unenhanced images were obtained. The lateral ventricles, sylvian fissures, and cortical sulci bilaterally are dilated. There is no mass effect nor midline shift. There is a relatively small focal area of decreased attenuation on the right involving deep white matter at the frontoparietal junction and superior basal ganglia, that is suspected to represent an old infarct. There are less well-defined areas of mildly decreased attenuation involving cerebral white matter bilaterally, from the frontal to the occipital lobes, that are nonspecific, but may be due to small vessel ischemic changes and/or white matter infarcts. There is no evidence of recent intracranial hemorrhage nor extra-axial hematoma. No mass lesion is evident. No skull fracture is noted. There is a supraorbital anterior left frontal scalp hematoma. All CT scans at this facility use dose modulation, iterative reconstruction, and/or weight based dosing when appropriate to reduce radiation dose to as low as reasonably achievable. FINAL REPORT Dictated: 09/10/2020 10:40 am Aneesh Samayoa M.D. Signed (Electronic Signature): 09/10/2020 10:40 am Signed by: Aneesh Samayoa M.D. Transcribed by: EUGENIE Technologist: GIBRAN Pretty [facility] CT Maxillofacial w/o Sosajanny costello 09-10-2020 CT Maxillofacial w/o Contrast Exam Date/Time: 09/10/2020 10:21 EST Reason for Exam: Facial trauma;Other (please specify) Report IMPRESSION: NO EVIDENCE OF FACIAL BONE FRACTURE. LEFT SUPRAORBITAL ANTERIOR FRONTAL SCALP HEMATOMA EXTENDING TO THE LEFT UPPER EYELID. CLINICAL HISTORY: Facial trauma COMMENT: Unenhanced images were obtained. The facial bone structures, including bones of the orbits, nasal bones, zygomatic arches, bony herbert of the paranasal sinuses, the maxilla, and the mandible, are unremarkable in appearance, without evidence of fracture. The intraorbital structures are unremarkable and no intraorbital hematoma is evident. There is left supraorbital anterior frontal scalp hematoma, with inferior extension to involve the left upper eyelid. There is minimal mucosal thickening of ethmoid sinuses bilaterally. The other paranasal sinuses are aerated and are unremarkable. There is slight deviation of the bony nasal septum to the left of midline. There is stefanie bullosa formation of the right and left middle nasal turbinates. There is swelling or hypertrophy of right and left inferior nasal turbinates. All CT scans at this facility use dose modulation, iterative reconstruction, and/or weight based dosing when appropriate to reduce radiation dose to as low as reasonably achievable. FINAL REPORT Dictated: 09/10/2020 11:02 am Aneesh Samayoa M.D. Signed (Electronic Signature): 09/10/2020 11:02 am Signed by: Aneesh Samayoa M.D. Transcribed by: EUGENIE Technologist: GIBRAN [facility] CT Spine Cervical w/o Contra ston 09-10-2020 CT Spine Cervical w/o Contrast Exam Date/Time: 09/10/2020 10:21 EST Reason for Exam: Neck trauma;Other (please specify) Report IMPRESSION: MULTILEVEL CERVICAL DEGENERATIVE CHANGES. NO EVIDENCE OF CERVICAL SPINE FRACTURE. CLINICAL HISTORY: Neck trauma. COMMENT: Unenhanced images were obtained in a cervical collar. There are hypertrophic degenerative arthritic changes at the atlantoodontoid articulation. The bones appear osteopenic. There is interspace narrowing at C5-C6, C6-C7, and C7-T1. There are marginal hypertrophic spurs of cervical vertebral bodies. There is hypertrophic spurring of some of the uncinate processes and facet joints, with multilevel neural foraminal encroachment. There is fusion of the C5-C6 facet joint on the right. The cervical vertebral bodies are maintained in height. No fracture is noted. There is minimal anterolisthesis at C4-C5 and C5-C6. There is no prevertebral retropharyngeal soft tissue swelling. Evaluation of cervical intervertebral discs is limited, but there is an apparent prominent anterior extradural defect at C6-C7, there appears to be due to a combination of posterior hypertrophic spurring and disc protrusion, with decrease in the AP spinal canal diameter and focal spinal canal stenosis at this level. All CT scans at this facility use dose modulation, iterative reconstruction, and/or weight based dosing when appropriate to reduce radiation dose to as low as reasonably achievable. FINAL REPORT Dictated: 09/10/2020 10:55 am Aneesh Samayoa M.D. Signed (Electronic Signature): 09/10/2020 10:55 am Signed by: Aneesh Samayoa M.D. Transcribed by: EUGENIE Technologist: GIBRAN Normal [facility] Consent for Treatmenton Consent for Treatment [id number] CD:127 [facility] Consultation Noteon 09-10-20 20 Consultation Note Patient: LISA GOMEZ Age: 75 years Sex: Male : 1945 Associated Diagnoses: None Author: Jigar Hameed MD Chief Complaint 09/10/2020 10:00 EST To ED ]for fall hematoma to left eyebrow region and laceration. patient is alert but confused Interval History 75-year-old gentleman with unknown medical history presents to the hospital after mechanical fall and sustained trauma, including left supraorbital hematoma with no evidence of intracranial hemorrhage. We are being consulted for evaluation of elevated creatinine of 11 mg/dL and bicarb of 13. He had CT of the abdomen pelvis as part of trauma protocol and found to have prominent dilatation of renal pelvicalyceal systems and ureters bilaterally along with prostatomegaly. He was found to have hemoglobin of 5.8; he is getting PRBC. He does not remember any events leading to the fall; does not remember if there was LOC. No family members available at bedside for further history. He is started on bicarb drip as well as getting PRBC. He has Bernal catheter with over 900 cc in the Bernal bag Review of Systems Unable to obtain given patient's mental status Health Status Allergies: Allergic Reactions (Selected) No Known Medication Allergies, Allergies (1) Active Reaction No Known Medication Allergies None Documented Current medications: (Selected) Inpatient Medications Ordered Dextrose 5% in Water intravenous solution 1,000 mL + sodium bicarbonate 8.4% additive 150 mEq: 1,000 mL, IV, 100 mL/hr, Routine, Start date 09/10/20 11:09:00 EST, 11.5 hour(s), Total volume (mL): 1,150, Medications (1) Active Scheduled: (0) Continuous: (1) Dextrose 5% in Water 1,000 mL + sodium bicarbonate 8.4% 150 mEq 1,000 mL, IV, 100 mL/hr PRN: (0) Problem list: No problem items selected or recorded., No qualifying data available Histories Past Medical History: No active or resolved past medical history items have been selected or recorded. Family History: No family history items have been selected or recorded. Procedure history: No active procedure history items have been selected or recorded. Social History Social & Psychosocial Habits No Data Available . Physical Examination Vital Signs (last 24 hrs) Last Charted Temp Oral 36.4 DegC (SEP 10:50) Heart Rate Peripheral 75 bpm (SEP 10:50) Resp Rate 8 br/min (SEP 10:) SBP H 182mmHg (SEP 10:) DBP H 101mmHg (SEP 10:) SpO2 100 % (SEP 10:) General: Alert and oriented, No acute distress. Eye: Normal conjunctiva, Left orbit ecchymotic. HENT: Oral mucosa is moist. Neck: Supple, Non-tender, No carotid bruit, No jugular venous distention. Respiratory: Lungs are clear to auscultation, Breath sounds are equal. Cardiovascular: Normal rate, Regular rhythm, No murmur, No gallop, Good pulses equal in all extremities, No edema. Gastrointestinal: Soft, Non-tender, Non-distended, Normal bowel sounds. Genitourinary: No costovertebral angle tenderness. Integumentary: Warm, Dry. Neurologic: Alert, Oriented, Normal motor function, No focal deficits. Review / Management Results review: Labs (Last four charted values) Hgb C 5.8 (SEP 10) Hct L 17.1 (SEP 10) Cr C 11.2 (SEP 10) , All Results 09/10/2020 10:00 EST WBC 6.2 E9/L RBC 1.8 E12/L LOW Hgb 5.8 gm/dL CRIT Hct 17.1 % LOW MCV 96.8 fL MCH 32.6 pg MCHC 33.7 gm/dL RDW 14.7 % HI Platelet 202.0 E9/L MPV 10.3 fL Glucose Lvl 167 mg/dL BUN 93 mg/dL CRIT Creatinine 11.2 mg/dL CRIT eGFR 5 mL/min/1.73 m2 LOW eGFR AA 5 mL/min/1.73 m2 LOW BUN/Creat Ratio #syntax# Sodium Lvl 134 mmol/L LOW Potassium Lvl 4.1 mmol/L Chloride 104 mmol/L CO2 13 mmol/L CRIT AGAP 21 mEq/L HI Calcium Lvl 9.0 mg/dL Alk Phos 25 Int._Unit/L ALT 12 Int._Unit/L AST 12 Int._Unit/L Total Protein 7.2 gm/dL Albumin Lvl 3.9 gm/dL Globulin 3.3 gm/dL A/G Ratio 1.2 Bili Total 0.6 mg/dL . Impression and Plan 1. TJ with unknown baseline creatinine: Likely from obstructive uropathy as well as low hemoglobin. With Bernal catheter placement, he has robust urine output. He does have slightly elevated myoglobin; please check CPK and may need to trend as he may be at risk for rhabdomyolysis given fall with unknown details regarding duration. Agree with bicarb drip as you are for now. No urgent need for CLASS A LINEMAN at this time Upon transfer to tertiary care hospital, he will benefit from urology evaluation for prostatomegaly leading to obstruction. 2. Metabolic acidosis: Likely from severe TJ. Monitor with bicarb drip for now. Ethanol levels are normal. No history to suggest toxic alcohol ingestion. 3. Anemia: Unknown origin. Further management per hospitalist. 4. Fall with orbital hematoma: Further management per hospitalist. Thank you for involving us in the consultation of this patient. I understand the patient is being transferred to tertiary care center for management of his trauma. Please feel free to call us with any questions. Normal [facility] Comment on above: Result Comment: Elec tronically Signed By: Zari GONZALEZ, Jigar\.br\Date and Time Signed: 09/10/20 14:44 EST ED Clinical Summaryon 2019 ED Clinical Summary (Inserted Image. Ailyn ble to display) [address] [address] ED Clinical Summary Person Information Name: CHANO GOMEZ/Silvia Age: 75 Years : 1945 Sex: Male Language: Urdu PCP: SOHAM FERNANDO DO Marital Status: Visit Id: Visit Reason: Trauma - major; FALL Speciality: Acuity: 2 Enc Type: Emergency Med Service: Emergency Arrival: 09/10/2020 09:50:41 Discharge: 09/10/2020 16:11:09 LOS: 000 06:21 Checkin: 09/10/2020 09:50:41 Checkout: 09/10/2020 16:11:09 Dispo Type: Short-Term Hosp as IP EVENTS: Event Name Event Status Request Date/Time Start Date/Time Complete Date/Time Arrive Complete 09/10/2020 09:50:41 09/10/2020 09:50:41 09/10/2020 09:50:41 Document Home Meds Request 09/10/2020 09:50:41 Triage Complete 09/10/2020 09:50:41 09/10/2020 11:14:25 09/10/2020 11:14:25 Bed Assign Complete 09/10/2020 09:51:54 09/10/2020 09:51:54 09/10/2020 09:51:54 Dr Exam Complete 09/10/2020 09:51:54 09/10/2020 09:53:57 09/10/2020 09:53:57 RN Exam Complete 09/10/2020 09:51:54 09/10/2020 11:14:55 09/10/2020 11:14:55 Trauma II Request 09/10/2020 09:51:59 Registration Complete 09/10/2020 09:53:57 09/10/2020 10:07:57 09/10/2020 10:07:57 Consult Request 09/10/2020 10:01:01 EKG Complete 09/10/2020 10:01:01 09/10/2020 10:36:04 NPO Request 09/10/2020 10:01:01 Pending Labs Complete 09/10/2020 10:01:01 09/10/2020 11:40:13 Lab Complete 09/10/2020 10:01:01 09/10/2020 10:57:23 Urine Collect Complete 09/10/2020 10:01:01 09/10/2020 10:34:12 RT Request 09/10/2020 10:01:01 Patient Care Request 09/10/2020 10:01:01 X-Ray Cancel 09/10/2020 10:01:01 09/10/2020 10:23:42 Blood Collect Request 09/10/2020 10:01:01 CT Complete 09/10/2020 10:01:01 09/10/2020 10:45:32 CT Complete 09/10/2020 10:02:24 09/10/2020 10:05:56 09/10/2020 10:21:59 Reg Complete Request 09/10/2020 10:07:57 CT Cancel 09/10/2020 10:12:30 09/10/2020 10:22:52 Pending Labs Complete 09/10/2020 10:16:39 09/10/2020 10:16:39 09/10/2020 10:40:58 Lab Complete 09/10/2020 10:16:39 09/10/2020 10:16:39 09/10/2020 10:40:58 Pending Labs Complete 09/10/2020 10:20:22 09/10/2020 10:20:22 09/10/2020 10:32:40 Lab Complete 09/10/2020 10:20:22 09/10/2020 10:20:22 09/10/2020 10:32:40 CT Cancel 09/10/2020 10:22:48 09/10/2020 10:45:50 Pending Labs Complete 09/10/2020 10:28:23 09/10/2020 12:16:14 Blood Collect Request 09/10/2020 10:28:23 Pending Labs Complete 09/10/2020 10:40:02 09/10/2020 10:40:02 09/10/2020 10:40:25 Pending Labs Complete 09/10/2020 10:40:02 09/10/2020 10:40:02 09/10/2020 10:40:30 Lab Complete 09/10/2020 10:40:02 09/10/2020 10:40:02 09/10/2020 10:40:30 Pending Labs Inlab 09/10/2020 10:40:30 09/10/2020 10:40:30 CT Complete 09/10/2020 10:45:29 09/10/2020 10:46:16 09/10/2020 11:05:10 CT Complete 09/10/2020 10:45:48 09/10/2020 10:46:16 09/10/2020 11:05:10 Patient Care Request 09/10/2020 11:07:07 Pending Labs Complete 09/10/2020 11:07:56 09/10/2020 11:07:56 09/10/2020 12:19:08 Blood Collect Start 09/10/2020 11:07:56 09/10/2020 11:07:56 Meds Admin Request 09/10/2020 11:10:08 Meds Admin Complete 09/10/2020 11:23:43 09/10/2020 11:44:36 Patient Care Request 09/10/2020 11:31:54 Pending Labs Request 09/10/2020 11:31:54 Lab Request 09/10/2020 11:31:54 Urine Collect Request 09/10/2020 11:31:54 Pending Labs Inlab 09/10/2020 12:16:59 09/10/2020 12:16:59 Blood Collect Start 09/10/2020 12:16:59 09/10/2020 12:16:59 Pending Labs Complete 09/10/2020 12:51:05 09/10/2020 12:51:05 09/10/2020 12:51:06 Pending Labs Request 09/10/2020 14:39:32 Lab Request 09/10/2020 14:39:32 Patient Care Request 09/10/2020 14:59:38 Transfer Complete 09/10/2020 14:59:38 09/10/2020 16:11:24 09/10/2020 16:11:24 Discharge Complete 09/10/2020 16:11:24 09/10/2020 16:11:24 09/10/2020 16:11:24 ADDRESS: [address] [place] [id number] PHYS DOC NOTES: MEDICAL INFORMATION: Prescriptions Given: PATIENT EDUCATION INFORMATION: Instructions: Follow up: DIAGNOSIS: 1:Head trauma; 2:Renal failure; 3:Anemia Normal [facility] ED Note-Physicianon 09-10-20 ED Note-Physician Basic Information Time Seen: Alberto GONZALEZ, Yair 09/10/2020 09:53 Chief Complaint To ED ]for fall hematoma to left eyebrow region and laceration. patient is alert but confused History of Present Illness Patient was brought to the emergency department by EMS after a fall. According to the son patient lives with his girlfriend, she called him this morning and told that his father fell hitting his head against the tile on the floor. Patient is confused at the time of examination. Review of Systems Review of system could not be done because of patient's condition Physical Exam Vitals & Measurements T: 36.4 ?C (Oral) HR: 71(Monitored) RR: 10 BP: 189/101 SpO2: 100% General: alert, no acute distress Skin: warm, dry Head: Left forehead trauma, normocephalic Neck: Trachea midline, no adenopathy, no tenderness Eye: normal conjunctiva, sclera clear left pupil is irregular and sluggish to light response ENMT: TM's clear, oral mucosa moist, no pharyngeal erythema or exudate Cardiovascular: regular rate and rhythm, normal peripheral perfusion Capillary refill Less than 1 second Respiratory: Lungs CTA, respirations non labored Chest wall: no deformity. Gastrointestinal: soft, non distended, no tenderness, no guarding bowel sounds normal.Hepatosplenomega ly negative Genitourinary Normal Back: No tenderness, Normal ROM, Normal alignment. Extremities: no deformity, no trauma ,Edema none Color Normal Neurological: Patient is able to tell his name, patient is able to move all his extremities, full neurological examination could not be done because of patient's condition Psychiatric: cooperative, affect appropriate for age, normal judgement, normal psychiatric thoughts. Procedure Laceration repair Patient has 2 lacerations one on his lip and the other one on his left eyebrow. Lacerations were thoroughly cleaned and sutured in place. There were 2 sutures of Prolene on his left eyebrow and 3 Vicryl sutures on his lip. It was covered with bacitracin cream. Patient tolerated the procedure well. There was no damage to neurovascular bundle Medical Decision Making CT scan of the head and cervical spine was negative for any acute fracture. Patient white count is 6200 with hemoglobin of 5.8. Patient BUN is 33 creatinine is 11.2. Myoglobin is 251. Patient's CO2 is 13 with anion gap of 21. Lipase is 80 and magnesium is 2.5. Lactic acid is 1.3. Rest of the numbers are within normal range. Talk to the [employer] police coxswain on-call, she advised to start the patient on bicarb drip. I also paged trauma services they will see the patient later on. Blood transfusion for 2 units was also ordered. I talked to Dr. Kinsey from hospitalist group and he was reluctant admitting the patient because of unavailability of critical care coverage at this hospital. I have to wait to get approval from the trauma before the patient can be transferred. Initially we tried to have the patient transferred to [facility], after unsuccessful attempts we tried [facility] [place], they did not have a bed ready and the family wanted him to be transferred sooner. I talked to Dr. Adames at the emergency department at [facility] and he kindly accepted the patient. Patient will be transferred via an ambulance. Patient has been doing much better. Patient has good urine output. Most likely cause of patient's renal failure is enlarged prostate since patient drained about 2 L of urine when the Bernal's catheter was introduced. All these labs of the testings were reviewed discussed with the patient, his son in the room and also with attendings. Critical care time 60 minutes of critical care time was spent on the patient Assessment/Plan 1. Head trauma (S09.90XA: Unspecified injury of head, initial encounter) Ordered: bupivacaine, 150 mg, 30 mL, Injection, IntraDermal, Once, Stop date 09/10/20 11:23:00 EST, STAT, Start date 09/10/20 11:23:00 EST Basic Metabolic Panel CBC w/ Auto Diff Red Cell Order Transfer Patient Urinary Catheter Insertion 2. Renal failure (N19: Unspecified kidney failure) Ordered: bupivacaine, 150 mg, 30 mL, Injection, IntraDermal, Once, Stop date 09/10/20 11:23:00 EST, STAT, Start date 09/10/20 11:23:00 EST Basic Metabolic Panel CBC w/ Auto Diff Transfer Patient Urinary Catheter Insertion 3. Anemia (D64.9: Anemia, unspecified) Ordered: bupivacaine, 150 mg, 30 mL, Injection, IntraDermal, Once, Stop date 09/10/20 11:23:00 EST, STAT, Start date 09/10/20 11:23:00 EST Basic Metabolic Panel CBC w/ Auto Diff Transfer Patient Urinary Catheter Insertion Orders: Dextrose 5% in Water intravenous solution 1,000 mL + sodium bicarbonate 150 mEq, 1,000 mL, IV, 100 mL/hr, Routine, Start date 09/10/20 11:09:00 EST, 11.5 hour(s), Total volume (mL): 1,150 Sodium Chloride 0.9% intravenous solution, Soln-IV, Misc, Once, Stop date 09/10/20 11:35:02 EST, Physician Stop, 09/10/20 11:35:02 EST ABO/Rh ABO/Rh History Check Antibody Screen Automated Diff Basic Metabolic Panel Blood Bank ID# CBC w/ Auto Diff Consult to General Surgery Crossmatch CT Abdomen/Pelvis w/o Contrast CT Chest w/o Contrast CT Head or Brain w/o Contrast CT Maxillofacial w/o Contrast CT Spine Cervical w/o Contrast Drug Screen Urine ECG 12 Lead Adult ED Cardiac Monitoring eGFR Ethanol Level Extra SST Tube Hepatic Function Panel Lactic Acid Lipase Level Magnesium Level Morphology Myoglobin NPO Diet Oxygen Therapy Path. Review PT & PTT Pulse Oximetry Continuous Saline Lock Insert Troponin Medications Administered Given Dextrose 5% in Water intravenous solution 1,000 mL + sodium bicarbonate 8.4% additive 150 mEq, IV bupivacaine 0.5% PF Inj 30 mL, 150 mg, IntraDermal Disposition Plan Patient Discharge Condition Patient will be transferred to [facility] emergency department under Dr. Adames Discharge Prescription List Prescriptions No active prescription medications Follow-up No qualifying data available Problem List/Past Medical History Ongoing No qualifying data Historical No qualifying data Medications Inpatient Dextrose 5% in Water intravenous solution 1,000 mL + sodium bicarbonate 8.4% additive 150 mEq Home No active home medications Allergies No Known Medication Allergies Lab Results WBC: 6.2 E9/L (09/10/20 10:00:00) RBC: 1.8 E12/L Low (09/10/20 10:00:00) Hgb: 5.8 gm/dL Critical (09/10/20 10:00:00) Hct: 17.1 % Low (09/10/20 10:00:00) MCV: 96.8 fL (09/10/20 10:00:00) MCH: 32.6 pg (09/10/20 10:00:00) MCHC: 33.7 gm/dL (09/10/20 10:00:00) RDW: 14.7 % High (09/10/20 10:00:00) Platelet: 202 E9/L (09/10/20 10:00:00) MPV: 10.3 fL (09/10/20 10:00:00) Neutro Auto: 57.8 % (09/10/20 10:00:00) Lymph Auto: 34.8 % (09/10/20 10:00:00) Bollinger Auto: 4.9 % (09/10/20 10:00:00) Eos Auto: 1.7 % (09/10/20 10:00:00) Basophil Auto: 0.8 % (09/10/20 10:00:00) Neutro Absolute: 3.6 E9/L (09/10/20 10:00:00) Lymph Absolute: 2.2 E9/L (09/10/20 10:00:00) Bollinger Absolute: 0.3 E9/L (09/10/20 10:00:00) Eos Absolute: 0.1 E9/L (09/10/20 10:00:00) Basophil Absolute: 0.1 E9/L (09/10/20 10:00:00) RBC Morph: Normal (09/10/20 10:00:00) PT: 12 second(s) (09/10/20 10:00:00) INR: 1 (09/10/20 10:00:00) PTT: 23.1 second(s) Low (09/10/20 10:00:00) Glucose Lvl: 167 mg/dL (09/10/20 10:00:00) BUN: 93 mg/dL Critical (09/10/20 10:00:00) Creatinine: 11.2 mg/dL Critical (09/10/20 10:00:00) eGFR: 5 mL/min/1.73 m2 Low (09/10/20 10:00:00) eGFR AA: 5 mL/min/1.73 m2 Low (09/10/20 10:00:00) BUN/Creat Ratio: #syntax# (09/10/20 10:00:00) Sodium Lvl: 134 mmol/L Low (09/10/20 10:00:00) Potassium Lvl: 4.1 mmol/L (09/10/20 10:00:00) Chloride: 104 mmol/L (09/10/20 10:00:00) CO2: 13 mmol/L Critical (09/10/20 10:00:00) AGAP: 21 mEq/L High (09/10/20 10:00:00) Calcium Lvl: 9 mg/dL (09/10/20 10:00:00) Alk Phos: 25 Int._Unit/L (09/10/20 10:00:00) ALT: 12 Int._Unit/L (09/10/20 10:00:00) AST: 12 Int._Unit/L (09/10/20 10:00:00) Total Protein: 7.2 gm/dL (09/10/20 10:00:00) Albumin Lvl: 3.9 gm/dL (09/10/20 10:00:00) Globulin: 3.3 gm/dL (09/10/20 10:00:00) A/G Ratio: 1.2 (09/10/20 10:00:00) Bili Total: 0.6 mg/dL (09/10/20 10:00:00) Bili Direct: 0.1 mg/dL (09/10/20 10:00:00) Bili Indirect: 0.5 mg/dL (09/10/20 10:00:00) Lipase Lvl: 80 unit/L High (09/10/20 10:00:00) Lactic Acid Lvl: 1.3 mmol/L (09/10/20 10:00:00) Magnesium: 2.5 mg/dL High (09/10/20 10:00:00) Myoglobin: 251 ng/mL High (09/10/20 10:00:00) Troponin: 12.1 pg/mL Low (09/10/20 10:00:00) U Amph Scr: Negative (09/10/20 10:08:00) U Kate Scr: Negative (09/10/20 10:08:00) U Benzodia Scr: Negative (09/10/20 10:08:00) U Cannab Scr: Negative (09/10/20 10:08:00) U Cocaine Scr: Negative (09/10/20 10:08:00) U Opiate Scr: NEG1 (09/10/20 10:08:00) U PCP Scr: Negative (09/10/20 10:08:00) Ethanol Lvl: <5 (09/10/20 10:00:00) ABO/Rh: A POS (09/10/20 10:00:00) ABO/Rh Retype Interp: A POS (09/10/20 10:48:00) ABSC Gel Interp: Negative (09/10/20 10:00:00) Computer XM Interp: Computer XM OK (09/10/20 10:00:00) Computer XM Interp: Computer XM OK (09/10/20 10:00:00) Diagnostic Results CT Abdomen/Pelvis w/o Contrast 09/10/20 11:47:[address] CHEST REPORT. All CT scans at this facility use dose modulation, iterative reconstruction, and/or weight based dosing when appropriate to reduce radiation dose to as low as reasonably achievable. Signed By: Aneesh Samayoa M.D. 09/10/20 11:05:10 GFR (mL/min/1/73m2) 5 Contrast: None Contrast amount in ml?s: 0 Signed By: Aneesh Samayoa M.D. CT Chest w/o Contrast 09/10/20 11:46:57 IMPRESSION: NO EVIDENCE OF ACUTE TRAUMATIC INJURY OF THE CHEST, ABDOMEN, OR PELVIS ON THIS UNENHANCED STUDY. PROMINENT DILATATION OF RENAL PELVICALYCEAL SYSTEMS AND URETERS BILATERALLY, WITHOUT EVIDENCE OF RADIOPAQUE URETERAL CALCULUS. THE PROSTATE IS ENLARGED AND MAY BE THE CAUSE FOR THE OBSTRUCTIVE UROPATHY. FREE FLUID IN THE ABDOMEN. NO EVIDENCE OF FREE AIR. NO EVIDENCE OF ACUTE/RECENT FRACTURE. CLINICAL HISTORY: Trauma COMMENT: Unenhanced images were obtained. On an unenhanced study, there are limitations in the evaluation of vascular structures and vascular organs. There is ectasia of the ascending thoracic aorta, with greatest diameter of 3.9 cm. There are scattered calcifications of the aortic arch and descending thoracic aorta. The heart is within normal limits in size, but with prominence of left ventricle. There are coronary artery calcifications. There is no pericardial effusion. No mediastinal hematoma is evident. No mediastinal nor hilar lymphadenopathy is noted. There are a few mediastinal, right hilar, and right and left lung calcified granulomas. There are mild fibrotic changes of both lung apices. No pulmonary contusion, no pneumothorax, no consolidated airspace opacification, no lung mass, nor pleural effusion is evident. The liver is normal in size and configuration. There are multiple rounded areas of decreased attenuation scattered in the liver, variable in size, and the density is consistent with cysts. The spleen is unremarkable. There is no evidence of gross hepatic or splenic rupture or laceration on this unenhanced study. The pancreas, gallbladder, and adrenal glands are unremarkable. No renal nor ureteral calculus is evident on this exam. There is quite prominent dilatation of the right and left renal pelvicalyceal systems and both ureters. The kidneys are otherwise unremarkable. No retroperitoneal hematoma nor lymphadenopathy is evident. There are scattered arterial calcifications. The abdominal aorta is normal in diameter, without evidence of aneurysm. Evaluation of bowel is limited. The bowel loops are not dilated, and there is no evidence of bowel obstruction. The appendix is not identified, but there is no CT evidence of appendicitis. There is fecal material scattered throughout the colon, that limits evaluation. There is sigmoid diverticulosis, without evidence of diverticulitis. No abdominal inflammatory complex nor free air is noted. There is free intraperitoneal fluid, with fluid collecting from adjacent to the liver and spleen to the pelvis. The prostate is enlarged, and indents the base of bladder. There is a Bernal balloon catheter within the bladder lumen. There is gas within the bladder lumen, presumably related to the presence of the catheter. No bladder calculus is noted. No pelvic hematoma nor pelvic lymphadenopathy is evident. Bones are osteopenic. There is deformity of the inferior manubrium, consistent with an old fracture. No acute/recent sternal fracture is evident. No displaced or acute/recent rib fracture is evident. No pelvic bone fracture is noted. There are relatively mild hypertrophic degenerative arthritic changes of both hips. No hip fracture nor dislocation is evident. CT THORACIC SPINE: There are hypertrophic spurs of mid and lower thoracic vertebral bodies. The thoracic vertebral bodies are maintained in height. No thoracic spine fracture is noted. CT LUMBOSACRAL SPINE: There is prominent interspace narrowing at L5-S1. There are marginal hypertrophic spurs of the lumbar vertebral bodies. There are hypertrophic arthritic changes of lumbar facet joints. The lumbar vertebral bodies are maintained in height. No lumbosacral spine fracture nor subluxation is noted. All CT scans at this facility use dose modulation, iterative reconstruction, and/or weight based dosing when appropriate to reduce radiation dose to as low as reasonably achievable. Signed By: Aneesh Samayoa M.D. CT Head or Brain w/o Contrast 09/10/20 10:43:57 IMPRESSION: CEREBRAL ATROPHIC CHANGES. FINDINGS CONSISTENT WITH A RELATIVELY SMALL OLD RIGHT FRONTOPARIETAL/SUPERIOR BASAL GANGLIA INFARCT. NONSPECIFIC CEREBRAL WHITE MATTER FINDINGS BILATERALLY. NO EVIDENCE OF RECENT INTRACRANIAL HEMORRHAGE. LEFT SUPRAORBITAL FRONTAL SCALP HEMATOMA. CLINICAL HISTORY: Head trauma, mod-severe. COMMENT: Unenhanced images were obtained. The lateral ventricles, sylvian fissures, and cortical sulci bilaterally are dilated. There is no mass effect nor midline shift. There is a relatively small focal area of decreased attenuation on the right involving deep white matter at the frontoparietal junction and superior basal ganglia, that is suspected to represent an old infarct. There are less well-defined areas of mildly decreased attenuation involving cerebral white matter bilaterally, from the frontal to the occipital lobes, that are nonspecific, but may be due to small vessel ischemic changes and/or white matter infarcts. There is no evidence of recent intracranial hemorrhage nor extra-axial hematoma. No mass lesion is evident. No skull fracture is noted. There is a supraorbital anterior left frontal scalp hematoma. All CT scans at this facility use dose modulation, iterative reconstruction, and/or weight based dosing when appropriate to reduce radiation dose to as low as reasonably achievable. Signed By: Aneesh Samayoa M.D. CT Maxillofacial w/o Contrast 09/10/20 11:05:27 IMPRESSION: NO EVIDENCE OF FACIAL BONE FRACTURE. LEFT SUPRAORBITAL ANTERIOR FRONTAL SCALP HEMATOMA EXTENDING TO THE LEFT UPPER EYELID. CLINICAL HISTORY: Facial trauma COMMENT: Unenhanced images were obtained. The facial bone structures, including bones of the orbits, nasal bones, zygomatic arches, bony herbert of the paranasal sinuses, the maxilla, and the mandible, are unremarkable in appearance, without evidence of fracture. The intraorbital structures are unremarkable and no intraorbital hematoma is evident. There is left supraorbital anterior frontal scalp hematoma, with inferior extension to involve the left upper eyelid. There is minimal mucosal thickening of ethmoid sinuses bilaterally. The other paranasal sinuses are aerated and are unremarkable. There is slight deviation of the bony nasal septum to the left of midline. There is stefanie bullosa formation of the right and left middle nasal turbinates. There is swelling or hypertrophy of right and left inferior nasal turbinates. All CT scans at this facility use dose modulation, iterative reconstruction, and/or weight based dosing when appropriate to reduce radiation dose to as low as reasonably achievable. Signed By: Danita Magdaleno, Aneesh Shepherd CT Spine Cervical w/o Contrast 09/10/20 10:58:57 IMPRESSION: MULTILEVEL CERVICAL DEGENERATIVE CHANGES. NO EVIDENCE OF CERVICAL SPINE FRACTURE. CLINICAL HISTORY: Neck trauma. COMMENT: Unenhanced images were obtained in a cervical collar. There are hypertrophic degenerative arthritic changes at the atlantoodontoid articulation. The bones appear osteopenic. There is interspace narrowing at C5-C6, C6-C7, and C7-T1. There are marginal hypertrophic spurs of cervical vertebral bodies. There is hypertrophic spurring of some of the uncinate processes and facet joints, with multilevel neural foraminal encroachment. There is fusion of the C5-C6 facet joint on the right. The cervical vertebral bodies are maintained in height. No fracture is noted. There is minimal anterolisthesis at C4-C5 and C5-C6. There is no prevertebral retropharyngeal soft tissue swelling. Evaluation of cervical intervertebral discs is limited, but there is an apparent prominent anterior extradural defect at C6-C7, there appears to be due to a combination of posterior hypertrophic spurring and disc protrusion, with decrease in the AP spinal canal diameter and focal spinal canal stenosis at this level. All CT scans at this facility use dose modulation, iterative reconstruction, and/or weight based dosing when appropriate to reduce radiation dose to as low as reasonably achievable. Signed By: Aneesh Samaoya M.D. EKG Results EC09/10/20: SINUS RHYTHM SEPTAL MYOCARDIAL INFARCTION, PROBABLY OLD ABNORMAL ECG Signed By: Yair Dominguez MD 09/10/2020 10:58:49 Normal [facility] Comment on above: Result Comment: Elec tronically Signed By: Yair Dominguez MD\.br\Date and Time Signed: 09/10/20 15:02 EST ED Patient Education Noteon 09-10-2020 ED Patient Education Note Normal [facility] ED Patient Summaryon 020 ED Patient Summary (Inserted Image. Ailyn ble to display) [place] [id number] Patient Discharge Instructions Person Information Name: CHANO GOMEZ Age: 75 Years Arrival Date: 09/10/2020 09:50:41 Discharge Diagnosis: 1:Head trauma; 2:Renal failure; 3:Anemia Primary Care Physician: SOHAM FERNANDO DO Provider Information Primary Provider: Yair Dominguez MD Advanced Speech And Language Specialist:None The exam and treatment you received in the Emergency Department were for an urgent problem and are not intended as complete care. It is important that you follow up with a doctor, nurse practitioner, or physician?s orthodontic technician assistant for ongoing care. If your symptoms become worse or you do not improve as expected and you are unable to reach your usual health care provider, you should return to the Emergency Department. We are available 24 hours a day. CHANO GOMEZ has been given the following list of patient education materials, prescriptions and follow-up instructions: Follow-up Instructions: In the event that this physician does not participate in your insurance network, please consult with your insurance company to find a nearby participating provider. Patient Education Materials: A MESSAGE TO ALL PATIENTS REGARDING OPIOIDS PRESCRIPTION OPIOIDS: WHAT YOU NEED TO KNOW Prescription opioids can be used to help relieve tecsjivo-mx-lnpfib pain and are often prescribed following a surgery or injury, or for certain health conditions. These medications can be an important part of the treatment but also come with serious risks. It is important to work with your healthcare provider to make sure you are getting the safest, most effective care. WHAT ARE THE RISKS AND SIDE EFFECTS OF OPIOID USE? Prescription opioids carry serious risks of addiction and overdose, especially with prolonged use. An opioid overdose, often marked by slowed breathing, can cause sudden . The use of prescription opioids can have a number of side effects as well, even when taken as directed: ? Tolerance?meaning you might need to take more of the medication for the same pain relief ? Physical dependence?meaning you have symptoms of withdrawal when a medication is stopped ? Increased sensitivity to pain ? Constipation ? Nausea, vomiting, and dry mouth ? Sleepiness and dizziness ? Confusion ? Depression ? Low levels of testosterone that can result in lower sex drive, energy, and strength ? Itching and sweating RISKS ARE GREATER WITH: ? History of drug misuse, substance use disorder, or overdose ? Mental health conditions (such as depression or anxiety) ? Sleep apnea ? Older age (65 years and older) ? Avoid alcohol while taking prescription opioids. Also, unless specifically advised by your health care provider, medications to avoid include: ? Benzodiazepines (such as Xanax or Valium) ? Muscle relaxants (such as Soma or Flexeril) ? Hypnotics (such as Ambien or Lunesta) ? Other prescription opioids KNOW YOUR OPTIONS Talk to your health care provider about ways to manage your pain that don?t involve prescription opioids. Some of these options may actually work better and have fewer risks and side effects. Options may include: ? Pain relievers such as acetaminophen, ibuprofen, and naproxen ? Some medication that are also used for depression or seizures ? Physical therapy and exercise ? Cognitive behavioral therapy, a psychological, goal-directed approach, in which patients learn how to modify physical, behavioral, and emotional triggers of pain and stress. IF YOU ARE PRESCRIBED OPIOIDS FOR PAIN: ? Never take opioids in greater amounts or more often than prescribed. ? Follow up with your primary health care provider. o Work together to create a plan on how to manage your pain. o Talk about ways to help manage your pain that don?t involve prescription opioids. o Talk about any and all concerns and side effects. ? Help prevent misuse and abuse o Never sell or share prescription opioids. o Never use another person?s prescription opioids. ? Store prescription opioids in a secure place and out of reach of others (this may include visitors, children, friends, and family). ? Safely dispose of unused prescription opioids: Find your community drug take-back program or your pharmacy mail-back program, or flush them down the toilet, following guidance from the Food and Drug Administration (www.fda.gov/Drugs/Reso jessycesForYou). ? Visit www.cdc.gov/drugoverdos e to learn about the risks of opioids abuse and overdose. ? If you believe you may be struggling with addiction, tell your health direct care specialist and ask for guidance or call [facility]?S National Helpline at 6-807-860-KOHI. y Source: [place] Department of Health and Human Services/Center for Disease Control & Prevention [facility] Medications Given: Medication Dose Route sodium bicarbonate 1150.00 mL Initial Volume 100.00 mL/hr IV Left Lower Forearm Dextrose 5% in Water intravenous solution 1150.00 mL Initial Volume 100.00 mL/hr IV Left Lower Forearm bupivacaine 150.00 mg IntraDermal Medication Information: Comment: Pharmacy Information: Thank you for choosing [facility] Patient Education Materials: RICO Lundy LARRY , have received the following patient education materials/instructions and have verbalized understanding: Patient Education Materials: Follow-up Instructions: Patient Signature Date Clinician/Nurse Signature _ Date 09/10/2020 16:11:26 [facility] Ethanolon 09-10-2020 Ethanol [Mass/Vol] mg/dL Normal <=7 [facility] Comment on above: Performed By: #### 2 715736, [id number], 3004429, 8193258, 2098088, 4625251, 3655958, 5395677, 0074209, 18267703, 3331413, 75327005, 65665808, 1051833 ####[facility] [address] [place] [address] Hep Func Panelon 09-10-2020 Albumin [Mass/Vol] 1.2 g/dL Normal 1.1-2.2 [facility] Comment on above: Performed By: #### 2 779186, 27549316, 2130858, 1992007, 3603601, 8712487, 1378705, 3591656, 2305569, 12865752, 8293142, 27352621, 49529705, 5772969 ####[facility] [address] [place] [address] Albumin [Mass/Vol] 3.9 g/dL Normal 3.3-5.0 [facility] Comment on above: Performed By: #### 2 906165, 80077222, 9145188, 0583009, 2390804, 8757735, 5025244, 2119408, 3980807, 84699629, 2696121, 15425996, 81908039, 7689132 ####[facility] [address] [place] [address] ALP [Catalytic activity/Vol] 25 Int._Unit/L Normal 21-98 [facility] Comment on above: Performed By: #### 2 019637, 25542994, 5936061, 9414922, 1911694, 3944105, 9583255, 8294452, 4479715, 28707018, 9362696, 75492946, 14163073, 6140692 ####[facility] [address] [place] [address] ALT No additional P-5'-P [Catalytic activity/Vol] 12 Int._Unit/L Normal 6-46 [facility] Comment on above: Performed By: #### 2 263306, 74938200, 4316314, 1706970, 7399646, 7128937, 6645557, 9864085, 0262903, 16064486, 5554455, 63141128, 47072221, 7282622 ####[facility] [address] [place] [address] AST [Catalytic activity/Vol] 12 Int._Unit/L Normal 5-43 [facility] Comment on above: Performed By: #### 2 472513, 84433874, 3413772, 4020808, 4162835, 5522383, 1617010, 3779461, 1580973, 76438430, 9000309, 53237980, 10723209, 9299035 ####[facility] [address] [place], [place] [address] Bilirubin [Mass/Vol] 0.6 mg/dL Normal 0.0-1.1 [facility] Comment on above: Performed By: #### 2 579414, 88006895, 0782872, 7160287, 7477292, 6928357, 4005579, 4138831, 6082992, 31105696, 3124313, 40805144, 04041517, 9008688 ####[facility] [address] [place] [address] Bilirubin.direct [Mass/Vol] 0.5 mg/dL Normal 0.1-0.9 [facility] Comment on above: Performed By: #### 2 077623, 22588655, 4579323, 2460118, 3466401, 7740602, 1780705, 5760862, 3292704, 39165635, 9731011, 93178605, 65613802, 9687231 ####[facility] [address] [place] [address] Bilirubin.direct [Mass/Vol] 0.1 mg/dL Normal 0.1-0.4 [facility] Comment on above: Performed By: #### 2 878386, 65855193, 0884957, 1635396, 9778385, 5423716, 2025979, 6429563, 9439309, 39060771, 7130196, 59124636, 61243171, 2192187 ####[facility] [address] [place] [address] Globulin (S) [Mass/Vol] 3.3 g/dL Normal 1.4-4.0 [facility] Comment on above: Performed By: #### 2 032779, 45650703, 1860784, 9911315, 5168962, 4656797, 9404024, 1431589, 3692287, 80145811, 0345819, 78800615, 93033595, 2200330 ####[facility] [address] [place] [address] Protein [Mass/Vol] 7.2 g/dL Normal 6.0-7.8 [facility] Comment on above: Performed By: #### 2 905320, 21019090, 1545266, 4314099, 0165459, 0558201, 8719645, 5830919, 9015126, 81737493, 8373936, 77172625, 67989120, 0487577 ####[facility] [address] [place] [address] LACTATE BLOODon 09-10-2020 Lactate [Moles/Vol] 0.6 mmol/L Normal 0.5-2.2 [facility] Comment on above: Order Comment: No: D o not add to previous draw Performed By: #### 5 6101 #### [facility] [address] [facility] [place] [address], [facility] Lactic Acidon 09-10-2020 Lactate [Mass/Vol] 1.3 mmol/L Normal 0.5-2.2 [facility] Comment on above: Performed By: #### 2 069200, 41483521, 0295465, 3519362, 2495723, 7817743, 5334588, 7928531, 2095562, 53770668, 5932529, 86875227, 67783482, 3977556 ####[facility] [address] [place] [address] Lipase Levelon 09-10-2020 Lipase [Catalytic activity/Vol] 80 unit/L High 13-58 [facility] Comment on above: Performed By: #### 2 636603, 74411963, 8263901, 7222429, 4187288, 9558954, 6260254, 2298893, 8912929, 25132460, 0479167, 25589073, 30487306, 5704735 ####[facility] [address] [place] [address] MYOGLOBINon 09-10-2020 Myoglobin [Mass/Vol] 233 ng/mL Critically high 0-90 [facility] Comment on above: Result Comment: A DO UBLING OF VALUES FROM SERIAL BLOOD COLLECTIONS (1 - 2 HOURS APART) IS MORE INDICATIVE OF A M.I. THAN THE ABSOLUTE VALUE. Performed By: #### 3 1509, 13542 #### [facility] [address] [place] [address], [facility] Magnesiumon 09-10-2020 Magnesium [Mass/Vol] 2.5 mg/dL High 1.3-2.4 [facility] Comment on above: Performed By: #### 2 721072, 53215094, 6928815, 2629027, 8520633, 8449555, 8385382, 0755177, 9550487, 04407370, 0225510, 62760067, 05347112, 0892636 ####[facility] [address] [place] [address] Morphon 09-10-2020 Morphology Kayode (Bld) [Interp] Normal Normal [facility] Comment on above: Order Comment: Order Added by Discern Expert. Performed By: #### 2 718535, 40497843, 0178558, 8399706, 0368336, 5808761, 8140876, 0760163, 9981182, 01515252, 1728908, 56144520, 53309055, 4208345 ####[facility] [address] [place] [address] Myoglobinon 09-10-2020 Myoglobin [Mass/Vol] 251 ng/mL High <=69 [facility] Comment on above: Performed By: #### 2 152216, 56135779, 3353567, 3249153, 1835542, 3538351, 1889047, 9675351, 6691582, 21181292, 7194241, 68295762, 50071279, 1991006 ####[facility] [address] [place] [address] PROTHROMBIN TIMEon 0 INR Coag (PPP) [Relative time] 0.97 {INR} Normal 0.91-1.16 [facility] Comment on above: Result Comment: ACCC P RECOMMENDED INR FOR WARFARIN THERAPY --------- ------- CONDITION INR PROPHYLAXIS OF VENOUS THROMBOSIS 2-3 (HIGH-RISK SURGERY) TREATMENT OF VENOUS THROMBOSIS 2-3 TREATMENT OF PULMONARY EMBOLISM 2-3 PREVENTION OF SYSTEMIC EMBOLISM: 2-3 ACUTE MYOCARDIAL INFARCTION TISSUE HEART VALVES VALVULAR HEART DISEASE ATRIAL FIBRILLATION RECURRENT SYSTEMIC EMBOLISM MECHANICAL HEART VALVE 2.5-3.5 FROM: ORAL ANTICOAGULANTS. MECHANISM OF ACTION, CLINICAL EFFECTIVENESS, AND OPTIMAL THERAPEUTIC RANGE. CHEST 1995;108:231S-246S. Performed By: #### 3 1862, 52749 #### [facility] [address] [place] [address], [facility] PT Coag (PPP) [Time] 12.9 s Normal 12.3-14.8 [facility] Comment on above: Result Comment: ALL RESULTS MUST BE INTERPRETED WITH RESPECT TO BLOOD DRAWING ARTIFACT OR DILUTION ERROR OF ANTICOAGULANT AT THE TIME OF SAMPLING. Performed By: #### 3 1509, 97779 #### [facility] [place] [address], [facility] PT & PTTon 09-10-2020 aPTT Coag (PPP) [Time] 23.1 second(s) Low 25.1-36.5 [facility] Comment on above: Result Comment: Hepa rin therapeutic range (represented by Anti-Factor Xa activity of 0.2 - 0.4 U/mL) corresponds to PTT of 56.6 - 109.0 sec. Performed By: #### 2 569951, 02815293, 1413152, 5058302, 1175327, 1198225, 9061476, 5976908, 7744884, 43183826, 8572309, 27087230, 97405125, 7695130 ####[facility] [address] [place] [address] INR Coag (PPP) [Relative time] 1.0 {INR} [facility] Comment on above: Result Comment: INR results are specifically intended to assess patients stabilized on long-term Anticoagulation therapy suggested INR?s ?Less Intensive Anticoagulation? 2.0 ? 3.0 Conventional Range 3.0 ? 4.5 Performed By: #### 2 971378, 57664190, 9033462, 1555081, 5490155, 1773729, 3186883, 1520073, 3018492, 42609824, 7918836, 00625047, 39763073, 1061274 ####[facility] [address] [place] [address] PT Coag (PPP) [Time] 12.0 second(s) Normal 10.2-12.9 [facility] Comment on above: Performed By: #### 2 152610, 03788594, 3426031, 8454757, 0013065, 3473971, 9326109, 0437814, 0171890, 31720518, 2718288, 68243794, 45804830, 9433782 ####[facility] [address] [place] [address] RCOon 09-10-2020 # of Units 2 [facility] Comment on above: Result Comment: 09/10 12:19 [id number] Blood product ready and called to Renu in ED at 09/10/2020 12:19:01 EST by lana. Performed By: #### 1 3852724 #### [facility] [address] [place] [address] Date Required 09-10-2020 [facility] Comment on above: Performed By: #### 1 4053834 #### [facility] [address] [place] [address] Product Type None Required [facility] [place] [facility] Comment on above: Performed By: #### 1 2473787 #### [facility] [address] [place] [address] TROPONIN-Ion 09-10-2020 Troponin I.cardiac [Mass/Vol] 0.03 ng/mL Normal 0.00-0.04 [facility] Comment on above: Result Comment: REFE RENCE RANGES: 0.00 - 0.04 ng/ml NORMAL 0.05 - 0.50 ng/ml INDETERMINATE > 0.50 ng/ml CONSISTENT WITH AN M.I. Performed By: #### 3 1509, 12662 #### [facility] [address] [place], [place] [address] Transfer Documentson 020 Transfer Documents [id number] 000 [id number] CD:127 Normal [facility] Troponinon 09-10-2020 Troponin I.cardiac [Mass/Vol] 12.10 pg/mL Low 15.90-38.40 [facility] Comment on above: Result Comment: The 95% CI (Confidence Interval) PPV (Positive Predictive Value) for myocardial infarction in females is 38 pg/mL, in males 51 pg/mL. The results should be used in conjunction with clinical conditions of myocardial infarction. (Access High Sensitivity Troponin I Instructions For Use, Meghana Chun, June 2018) Performed By: #### 2 165285, 07635490, 7624079, 8400428, 5839323, 3651541, 3233889, 3230431, 9343122, 51502778, 4612142, 25071047, 28419904, 5736429 ####[facility] [address] [place] [address] U Drug Screenon 09-10-2020 Amphetamines Screen method >1000 ng/mL Ql (U) Negative Normal Negative [facility] Comment on above: Result Comment: Nega tive Cutoff: <1000 ng/mL Performed By: #### 2 799798 #### [facility] [address] [place] [address] Barbiturates Screen Ql (U) Negative Normal Negative [facility] Comment on above: Result Comment: Nega tive Cutoff: <200 ng/mL Performed By: #### 2 793621 #### [facility] [address] [place] [address] Benzodiazepines Ql (U) Negative Normal Negative [facility] Comment on above: Result Comment: Nega tive Cutoff: <200 ng/mL Performed By: #### 2 390730 #### [facility] [address] [place] [address] Cocaine Ql (U) Negative Normal Negative [facility] Comment on above: Result Comment: Nega tive Cutoff: <300 ng/mL Performed By: #### 2 871747 #### [facility] [address] [place] [address] Opiates Screen Ql (U) Negative Normal Negative [facility] Comment on above: Result Comment: Nega tive Cutoff: <300 ng/mL Performed By: #### 2 846470 #### [facility] [address] [place] [address] Phencyclidine Screen method >25 ng/mL Ql (U) Negative Normal Negative [facility] Comment on above: Result Comment: Nega tive Cutoff: <25 ng/mL These drug screen results are to be used for medical (i.e., treatment) purposes only. Unconfirmed drug screening results must not be used for non-medical purposes (e.g., employment testing, legal testing). Performed By: #### 2 818747 #### [facility] [address] [place] [address] Tetrahydrocannabinol Screen method >50 ng/mL Ql (U) Negative Normal Negative [facility] Comment on above: Result Comment: Nega tive Cutoff: <50 ng/mL Performed By: #### 2 193406 #### [facility] [address] [place] [address] URINALYSISon 09-10-2020 Appearance (U) SL CLOUDY Abnormal CLEAR [facility] Comment on above: Performed By: #### 1 0008 #### [facility] [address] [facility] [place] [place] [address], [facility] Bilirubin [Mass/Vol] Negative Normal NEGATIVE [facility] Comment on above: Performed By: #### 1 0008 #### [facility] [address] [facility] [place] [place] [address], [facility] BLOOD LARGE Abnormal NEGATIVE [facility] Comment on above: Performed By: #### 1 0008 #### [facility] [address] [facility] [place] [place] [address], [place] Color (U) STRAW Abnormal YELLOW [facility] Comment on above: Performed By: #### 1 0008 #### [facility] [address] [place] [address], [facility] EPIS NONE SEEN Normal FEW,OCC,NON E SEEN [facility] Comment on above: Performed By: #### 1 0008 #### [facility] [address] [place] [address], [place] Glucose [Mass/Vol] 50 mg/dL Abnormal NEGATIVE [facility] Comment on above: Performed By: #### 1 0008 #### [facility] [address] [place] [address], [place] KETONE Negative Normal NEGATIVE [facility] Comment on above: Performed By: #### 1 0008 #### [facility] [address] LEUK DEJAH TRACE Abnormal NEGATIVE [facility] Comment on above: Performed By: #### 1 0008 #### [facility] [address] [facility] [place] [address], [facility] Nitrite Ql (U) Negative Normal NEGATIVE [facility] Comment on above: Performed By: #### 1 0008 #### [facility] [address] pH (Bld) 7.0 Normal 5.0-8.0 [facility] Comment on above: Performed By: #### 1 0008 #### [facility] [address] [place] [address], [facility] Protein (U) [Mass/Vol] 100 mg/dL Abnormal NEGATIVE [facility] Comment on above: Performed By: #### 1 0008 #### [facility] [address] [place] [address], [facility] RBC (U) [#/Vol] 51-100 Abnormal NONE SEEN [facility] Comment on above: Performed By: #### 1 0008 #### [facility] [address] SPEC GRAV 1.006 Low 1.015-1.020 [facility] Comment on above: Performed By: #### 1 0008 #### [facility] [address] WBC UA 6-10 Abnormal NONE SEEN [facility] Comment on above: Performed By: #### 1 0008 #### [facility] [address] VENOUS BLOOD GASon 0 BASE EXCESS -6 mmol/L Normal [facility] Comment on above: Performed By: #### 3 5949, 71479 #### [facility] [address] [place] [address], [facility] HCO3 (Bld) [Moles/Vol] 19 mmol/L Normal [facility] Comment on above: Performed By: #### 3 1509, 46715 #### [facility] [address] [place] [address], [place] Oxygen (Bld) [Partial pressure] 37 mm[Hg] Normal 35-45 [facility] Comment on above: Performed By: #### 3 1509, 69023 #### [facility] [address] [place] [address], [facility] Oxygen saturation in Blood 68.4 % Normal 65.0-75.0 [facility] Comment on above: Performed By: #### 3 1509, 47219 #### [facility] [address] [place] [address], [facility] PCO2 37 mmHg Normal [facility] Comment on above: Performed By: #### 3 1509, 77485 #### [facility] [address] [place] [address], [facility] pH (Bld) 7.32 [pH] Normal 7.31-7.41 [facility] Comment on above: Performed By: #### 3 1509, 10815 #### [facility] [address] [place] [address], [facility] eGFRon 09-10-2020 GFR/1.73 sq M predicted among blacks MDRD (S/P/Bld) [Vol rate/Area] 5 mL/min/1.73 m2 Low >=59 [facility] Comment on above: Order Comment: Order added by Discern Expert. Result Comment: eGFR is race adjusted. AA=. Performed By: #### 2 519878, 67347592, 2858883, 5747822, 7629873, 5512482, 6924422, 7853471, 8055519, 20045249, 8547380, 05004433, 09615549, 7116785 ####[facility] [address] [place] [address] GFR/1.73 sq M predicted among non-blacks MDRD (S/P/Bld) [Vol rate/Area] 5 mL/min/1.73 m2 Low >=59 [facility] Comment on above: Order Comment: Order added by Discern Expert. Result Comment: Opto Mechanical Technician jean kidney disease could be indicated at eGFR's of less than 60 mL/min/1.73m2. Kidney failure is indicated at less than 15 mL/min/1.73m2. Performed By: #### [id number] ####[facility] [id number] [place] [address] Vital Signs Date Time Vital Sign Value Performing Clinician Facility 05-04-2024 13:35-0400 Body height 179.07 cm [facility] 05-04-2024 13:35-0400 Body mass index (BMI) [Ratio] 21.1 kg/m2 [facility] 05-04-2024 13:35-0400 Body weight 67.69 kg [facility] 05-04-2024 13:35-0400 Diastolic blood pressure 134 mm[Hg] [facility] 05-04-2024 13:35-0400 Heart rate 98 /min [facility] 05-04-2024 13:35-0400 Respiratory rate 12 /min [facility] 05-04-2024 13:35-0400 Systolic blood pressure 199 mm[Hg] [facility] 02-03-2024 15:18-0400 Body height 179.07 cm [facility] 02-03-2024 15:18-0400 Body mass index (BMI) [Ratio] 22.9 kg/m2 [facility] 02-03-2024 15:18-0400 Body weight 73.59 kg [facility] 02-03-2024 15:18-0400 Diastolic blood pressure 114 mm[Hg] [facility] 02-03-2024 15:18-0400 Heart rate 87 /min [facility] 02-03-2024 15:18-0400 Respiratory rate 12 /min [facility] 02-03-2024 15:18-0400 Systolic blood pressure 176 mm[Hg] [facility] 12-03-2023 14:41-0500 Blood Pressure Location AGNES ROJO [facility] 12-03-2023 14:41-0500 Diastolic blood pressure 83 mm[Hg] AGNES DARREL [facility] 12-03-2023 14:41-0500 Heart rate 77 /min AGNES DARREL [facility] 12-03-2023 14:41-0500 Respiratory rate 16 /min AGNES DARREL [facility] 12-03-2023 14:41-0500 Systolic blood pressure 136 mm[Hg] AGNES DARREL [facility] 10-10-2023 14:30-0500 Body height 179.07 cm Soham Ball Other [facility] Other 10-10-2023 14:30-0500 Body mass index (BMI) [Ratio] 21.64 kg/m2 Soahm Ball Other [facility] Other 10-10-2023 14:30-0500 Body weight 69.4 kg Soham Ball Other [facility] Other 10-10-2023 14:30-0500 Diastolic blood pressure 106 mm[Hg] Soham Ball Other [facility] Other 10-10-2023 14:30-0500 Respiratory rate 12 /min Soham Ball Other [employer] Other 10-10-2023 14:30-0500 Systolic blood pressure 181 mm[Hg] Soham Ball Other [employer] Other 07-11-2023 13:45-0400 Body height 179.07 cm Soham Ball Other [employer] Other 07-11-2023 13:45-0400 Body mass index (BMI) [Ratio] 21.36 kg/m2 Soham Ball Other [employer] Other 07-11-2023 13:45-0400 Body weight 68.49 kg Soham Ball Other [employer] Other 07-11-2023 13:45-0400 Diastolic blood pressure 101 mm[Hg] Soham Ball Other [employer] Other 07-11-2023 13:45-0400 Respiratory rate 12 /min Soham Ball Other [employer] Other 07-11-2023 13:45-0400 Systolic blood pressure 173 mm[Hg] Soham Ball Other [employer] Other 07-03-2023 15:00-0400 Body height 179.07 cm Soham Ball Other [employer] Other 07-03-2023 15:00-0400 Body mass index (BMI) [Ratio] 20.93 kg/m2 Soham Ball Other [employer] Other 07-03-2023 15:00-0400 Body weight 67.13 kg Soham Ball Other [employer] Other 07-03-2023 15:00-0400 Diastolic blood pressure 127 mm[Hg] Soham Ball Other [employer] Other 07-03-2023 15:00-0400 Respiratory rate 12 /min Soham Ball Other [employer] Other 07-03-2023 15:00-0400 Systolic blood pressure 203 mm[Hg] Soham Ball Other [employer] Other 06-19-2023 12:10-0400 Body height 179.07 cm Bonita Ni Other [employer] Other 06-19-2023 12:10-0400 Body mass index (BMI) [Ratio] 21.64 kg/m2 Bonita Ni Other [employer] Other 06-19-2023 12:10-0400 Body temperature 98 [degF] Bonita Ni Other [employer] Other 06-19-2023 12:10-0400 Body weight 69.4 kg Bonita Ni Other [employer] Other 06-19-2023 12:10-0400 Diastolic blood pressure 119 mm[Hg] Bonita Ni Other [employer] Other 06-19-2023 12:10-0400 Respiratory rate 18 /min Bonita Ni Other [employer] Other 06-19-2023 12:10-0400 SaO2% (BldA) [Mass fraction] 97 % Bonita Ni Other [employer] Other 06-19-2023 12:10-0400 Systolic blood pressure 185 mm[Hg] Bonita Ni Other [employer] Other 10-11-2022 15:30-0500 Body height 182.88 cm Thu Figueroa Other [employer] Other 10-11-2022 15:30-0500 Body mass index (BMI) [Ratio] 20.34 kg/m2 Thu Figueroa Other [employer] Other 10-11-2022 15:30-0500 Body temperature 97.8 [degF] Thu Figueroa Other [employer] Other 10-11-2022 15:30-0500 Body weight 68.04 kg Thu Figueroa Other [employer] Other 10-11-2022 15:30-0500 Respiratory rate 18 /min Thu Figueroa Other [employer] Other 10-11-2022 15:30-0500 SaO2% (BldA) [Mass fraction] 96 % Thu Figueroa Other [employer] Other Encounters Encounter Date Encounter Type Care Provider Facility Start: 05-04-2024 End: 05-04-2024 ambulatory [facility] Work Phone: Start: 05-04-2024 End: 05-04-2024 Patient encounter procedure [facility] Work Phone: Start: 02-03-2024 End: 02-03-2024 Patient encounter procedure [facility] Work Phone: Start: 02-03-2024 End: 02-03-2024 ambulatory [facility] Work Phone: Start: 02-03-2024 Telephone encounter Soham Ball [facility] Start: 12-10-2023 End: 02-03-2024 Pre-admission assessment Jeffrey MARTÍNEZ [facility] Start: 12-03-2023 End: 12-04-2023 ambulatory PA-C AGNES ROJO Facility:[facility] Start: 12-03-2023 End: 12-03-2023 Patient encounter procedure AGNES ROJO [facility] Start: 11-17-2023 End: 11-17-2023 ambulatory Soham Ball Other [employer] Other Start: 11-17-2023 Telephone encounter Soham Ball [facility] Start: 11-17-2023 Patient encounter procedure [facility]- Start: 10-17-2023 End: 10-17-2023 ambulatory Soham Ball Other [employer] Other Start: 10-17-2023 Telephone encounter Soham Ball [facility] Start: 10-10-2023 End: 10-10-2023 ambulatory Soham Ball Other [employer] Other Start: 10-10-2023 Office outpatient visit 25 minutes Soham Ball [facility] Start: 07-11-2023 End: 07-11-2023 ambulatory Soham Ball Other [employer] Other Start: 07-11-2023 Office outpatient visit 25 minutes Soham Ball [facility] Start: 07-10-2023 End: 07-10-2023 ambulatory Soham Ball Other [employer] Other Start: 07-10-2023 Telephone encounter Soham Ball [facility] Start: 07-03-2023 End: 07-03-2023 ambulatory Soham Ball Other [employer] Other Start: 07-03-2023 Office outpatient visit 25 minutes Soham Fernando [facility] Start: 07-03-2023 Telephone encounter Soham Fernando [facility] Start: 06-19-2023 End: 06-19-2023 ambulatory Bonita Ni Other [employer] Other Start: 06-19-2023 Office outpatient visit 15 minutes Bonita Ni [facility] Start: 11-01-2022 End: 11-01-2022 ambulatory Floyd Rubi Facility:[facility] Start: 11-01-2022 End: 11-01-2022 ambulatory PHYSICIAN KYE [facility] Work Phone: Start: 11-01-2022 End: 11-01-2022 Patient encounter procedure PHYSICIAN KYE [facility] Start: 10-11-2022 End: 10-11-2022 ambulatory Thu Figueroa Other [employer] Other Start: 10-11-2022 Office outpatient visit 15 minutes Thu Figueroa [facility] Start: 10-09-2022 End: 10-09-2022 ambulatory Floyd Rubi Other [employer] Other Start: 10-09-2022 FQHC visit new patient Floyd Rubi [facility] Start: 10-06-2022 End: 10-07-[address] SOHAM FERNANDO Facility: Start: 10-23-2020 Patient encounter procedure [facility] Start: 10-19-2020 End: 10-20-2020 Patient encounter procedure [facility] Start: 10-19-2020 End: 10-19-2020 Subsequent hospital visit by physician OLEG Zamorano Start: 10-16-2020 End: 10-17-2020 Patient encounter procedure [facility] Start: 10-16-2020 End: 10-16-2020 Subsequent hospital visit by physician OLEG [facility] Start: 10-13-2020 End: 10-14-2020 Patient encounter procedure JEFFRY AMADOR [facility] Start: 10-13-2020 End: 10-13-2020 Subsequent hospital visit by physician STA[facility] Start: 10-12-2020 End: 10-13-2020 Patient encounter procedure JEFFRY AMADOR [facility] Start: 10-12-2020 End: 10-12-2020 Subsequent hospital visit by physician OLEG [facility] Start: 10-11-2020 End: 10-12-2020 Patient encounter procedure JEFFRY AMADOR [facility] Start: 10-11-2020 End: 10-11-2020 Subsequent hospital visit by physician OLEG [facility] Start: 10-10-2020 End: 10-11-2020 [facility] Start: 10-10-2020 End: 10-10-2020 Subsequent hospital visit by physician OLEG [facility] Start: 10-09-2020 End: 10-10-2020 [facility] Start: 10-09-2020 End: 10-09-2020 Subsequent hospital visit by physician OLEG [facility] Start: 09-10-2020 End: 09-26-2020 Evaluation and management of inpatient ROHITH SALAS Facility:[facility] Procedures Date Procedure Procedure Detail Performing Clinician Start: 11-01-2022 Plain X-ray of right wrist PHYSICIAN KYE PACE Start: 03-08-2021 Transurethral water vapor ablation of prostate AGNESSHAY MARTELRY Start: 10-23-2020 HEMOGLOBIN AND HEMAT OCRIT, BLOOD JEFFRY MARJORIE Start: 10-19-2020 HEMOGLOBIN AND HEMAT OCRIT, BLOOD JEFFRY MARJORIE Start: 10-19-2020 Blood count hemoglobin Jeffry S Marjorie Work Phone: Start: 10-16-2020 HEMOGLOBIN AND HEMAT OCRIT, BLOOD JEFFRY MARJORIE Start: 10-16-2020 Blood count hemoglobin Jeffry S Marjorie Work Phone: Start: 10-13-2020 HEMOGLOBIN AND HEMAT OCRIT, BLOOD JEFFRY MARJORIE Start: 10-13-2020 Blood count hemoglobin Jeffry S Marjorie Work Phone: Start: 10-12-2020 HEMOGLOBIN AND HEMAT OCRIT, BLOOD JEFFRY MARJORIE Start: 10-12-2020 Blood count hemoglobin Jeffry S Marjorie Work Phone: Start: 10-11-2020 HEMOGLOBIN AND HEMAT OCRIT, BLOOD JEFFRY MARJORIE Start: 10-11-2020 Blood count hemoglobin Jeffry S Marjorie Work Phone: Start: 10-10-2020 HEMOGLOBIN AND HEMAT OCRIT, BLOOD JEFFRY MARJORIE Start: 10-10-2020 Blood count hemoglobin Jeffry S Marjorie Work Phone: Start: 10-09-2020 Basic metabolic pane l calcium total JEFFRY MARJORIE Start: 10-09-2020 Blood count complete automated JEFFRY MARJORIE Start: 10-09-2020 Basic metabolic pane l calcium total Jeffry S Marjorie Work Phone: Start: 10-09-2020 Blood count complete automated Jeffry S Marjorie Work Phone: Start: 09-25-2020 EXCISION OF DUODENUM , ENDO, DIAGN GHADA SARAVIA Start: 09-25-2020 EXCISION OF ILEOCECA L VALVE, ENDO, DIAGN GHADA SARAVIA Start: 09-25-2020 EXCISION OF SIGMOID COLON, ENDO, DIAGN GHADA SARAVIA Start: 09-25-2020 EXCISION OF STOMACH, ENDO, DIAGN GHADA SARAVIA Start: 09-21-2020 Antibody screen ROHITH AN AD Comment on above: Performed By: #### [id number] ####[facility].[address] Start: 09-14-2020 Antibody screen ROHITH AN AD Comment on above: Performed By: #### [id number] #### [facility] [address] [place] [address], [facility] Start: 09-14-2020 TRANSFUSE NONAUT RED BLOOD CELLS IN PERIPH VEIN, PERC ROHITH SALAS Start: 09-11-2020 [object Object] ROHITH AN AD Comment on above: Order Comment: Yes: Add to Previous draw if able Performed By: #### [id number] ####[facility] [place] [address], [facility] Extraction of cataract SUSANNE ROJO Plan of Treatment Date Care Activity Detail Author Start: 10-26-2020 Hospital Encounter 10/26/2020 Hospital Encounter [facility] Start: 10-23-2020 Hospital Encounter 10/23/2020 Hospital Encounter [facility] Start: 10-19-2020 Hospital Encounter 10/19/2020 Hospital Encounter [facility] Start: 10-16-2020 Hospital Encounter 10/16/2020 Hospital Encounter [facility] Start: 10-15-2020 Hospital Encounter 10/15/2020 Hospital Encounter [facility] Start: 10-14-2020 Hospital Encounter 10/14/2020 Hospital Encounter [facility] Start: 10-13-2020 Hospital Encounter 10/13/2020 Hospital Encounter [facility] Start: 07-04-2020 Influenza vaccination Flu vaccine (# 1) [place], [place] Immunizations Immunization Date Immunization Notes Care Provider Maggie [facility] 07-11-2023 influenza, high dose seasonal, preservative-free Soham Fernando Other [employer] Other 07-11-2023 Prevnar 20 Soham Fernando Other [facility] 07-11-2023 influenza virus vaccine, unspecified formulation [facility] Payers Date Payer Category Payer Unknown [id number] 2023 Medicare [id number] 2022 Self-pay 1959 Self-pay [id number] 1945 Unknown [id number] .[id number]. [id number] 1945 Unknown [id number] 1945 Unknown [id number] [id number] Unknown [id number] [id number] Unknown [id number] .[id number]. [id number] Social History Date Type Detail [facility] on file [facility] Ass[facility] At [facility] Start: 1945 Sex Assigned At Male F [facility] Start: 04-17-2021 End: 2024 Tobacco smoking status Ex-smoker (finding) [facility] Functional Status Date Assessment Result Facility 12-03-2023 Functional Status N/A [facility] Clinical Notes 10-09-2022 to 12-03-2023 Note Date & Type Note Facility 12-03-2023 Hospital Discharg e instructions Patient Education 12/03/2023 15:48:42 Urodynamic Testing Urodynamic Testing Urodynamic tests are done to determine how well your lower urinary tract is working. The lower urinary tract includes your bladder and the part of your body that drains urine from the bladder (urethra). When your kidneys filter your blood, urine is stored in your bladder until you feel the urge to urinate. Urination requires coordination between the nerves and muscles of your bladder and urethra. When your lower urinary tract is working well, you should be able to: Start urinating when your bladder is full. Empty your bladder completely. Control the flow of your urine. Why do I need urodynamic testing? You may need urodynamic testing to help find the cause of any of these problems: Leaking urine (incontinence). Problems starting or stopping your urine flow. Frequent or painful urination. Frequent urinary tract infections. Being unable to empty your bladder completely. Having strong urges to pass urine (urgency). Having a weak flow of urine. What are the risks? Generally, these tests are safe. However, some of the tests have risks, including: Discomfort. Frequent urge to urinate. Bleeding. Infection. Allergic reactions to medicines or dyes (contrast material). What happens before the test? Ask your health care provider about changing or stopping your regular medicines. This is especially important if you are taking diabetes medicines or blood thinners. You may be asked to avoid urinating before coming to the test so that you arrive with a full bladder. Tell a health care provider about: ?Any allergies you have. ?All medicines you are taking, including vitamins, herbs, eye drops, creams, and kytz-ukg-jzubxxk medicines. ?Whether you are or may be . What happens during the test? You may have various urodynamic tests. The tests may be done separately or may all be done during one visit. You may be given an antibiotic medicine before or after testing to help prevent infection. The types of tests that may be done include: Uroflowmetry This test measures how much urine you pass and how long it takes to pass. You will urinate into a certain type of toilet or device (flowmeter). The device will measure the volume and the time of your urine flow. These measurements will be sent to a computer that creates a graph of your urine flow. Postvoid residual measurement This test measures how much urine is left in your bladder after you urinate. The test may be done with ultrasound. In this method, sound waves and a computer will be used to create an image of your bladder. The test can also be done by inserting a thin, flexible tube (catheter) into your bladder after you urinate. The remaining urine will be removed through the catheter so it can be measured. Remaining urine will be measured in milliliters (mL). If you have more than 100 mL left in your bladder after you urinate, your bladder is not emptying as it should. Cystometric testing This test uses a type of bladder catheter that can measure pressure. You may be given a medicine to numb the area (local anesthetic). The area around the opening of your urethra will be cleaned. A urinary catheter will be passed through your urethra into your bladder and used to empty your bladder completely. A measuring catheter will be placed, and your bladder will be filled with warm, germ-free (sterile) water. Pressure measurements will be taken: ?As your bladder fills. ?When you feel the need to urinate. ?As your bladder is emptied. You may be asked to cough or bear down to check for leakage. In some cases, your bladder may be filled with a material that shows up on X-rays (contrast material) so that X-ray pictures can be taken during the test. Electromyogram This test measures the electrical activity of the nerves and muscles of your bladder and the opening of your urethra. Sticky patches (electrodes) will be placed near your rectum and urethra to measure electrical activity. The measurements will show how well your nerves are communicating with your muscles. What can I expect after the test? You should be able to go home right away and do your usual activities. You may be told to drink a glass of water every 30 minutes for the first 2 hours after testing. Taking a warm bath or using warm, wet cloths (warm compresses) may relieve any discomfort near your urethra. What do the results mean? Talk with your health care provider about what your results mean. Some common causes for abnormal results from urodynamic tests include: Enlarged prostate in men. Overactive bladder. Urinary tract infection. Nervous system diseases. Spinal cord damage. Questions to ask your health care provider Ask your health care provider, or the department that is doing the test: When will my results be ready? How will I get my results? What are my treatment options? What other tests do I need? What are my next steps? Contact a health care provider if: You have pain. You have blood in your urine. You have chills. You have a fever. Summary Urodynamic tests are done to determine how well your lower urinary tract is working. The lower urinary tract includes your bladder and urethra. You may need urodynamic testing to help find the cause of various problems with urination, such as leaking urine (incontinence) or problems starting or stopping your urine flow. You may have various urodynamic tests. The tests may be done separately or may all be done during one testing visit. Talk with your health care provider about what your results mean. Contact your health care provider if you have pain, chills, a fever, or blood in your urine. This information is not intended to replace advice given to you by your health care provider. Make sure you discuss any questions you have with your health care provider. Document Revised: 07/03/2022 Document Reviewed: 05/25/2021 [employer] Patient Education 2022 [employer] 12/03/2023 15:44:25 Cystoscopy Cystoscopy Cystoscopy is a procedure that is used to help diagnose and sometimes treat conditions that affect the lower urinary tract. The lower urinary tract includes the bladder and the urethra. The urethra is the tube that drains urine from the bladder. Cystoscopy is done using a thin, tube-shaped instrument with a light and camera at the end (cystoscope). The cystoscope may be hard or flexible, depending on the goal of the procedure. The cystoscope is inserted through the urethra, into the bladder. Cystoscopy may be recommended if you have: Urinary tract infections that keep coming back. Blood in the urine (hematuria). An inability to control when you urinate (urinary incontinence) or an overactive bladder. Unusual cells found in a urine sample. A blockage in the urethra, such as a urinary stone. Painful urination. An abnormality in the bladder found during an intravenous pyelogram (IVP) or CT scan. Cystoscopy may also be done to remove a sample of tissue to be examined under a microscope (biopsy). Tell a health care provider about: Any allergies you have. All medicines you are taking, including vitamins, herbs, eye drops, creams, and taot-cvf-ypcfwgu medicines. Any problems you or family members have had with anesthetic medicines. Any blood disorders you have. Any surgeries you have had. Any medical conditions you have. Whether you are or may be . What are the risks? Generally, this is a safe procedure. However, problems may occur, including: Infection. Bleeding. Allergic reactions to medicines. Damage to other structures or organs. What happens before the procedure? Medicines Ask your health care provider about: Changing or stopping your regular medicines. This is especially important if you are taking diabetes medicines or blood thinners. Taking medicines such as aspirin and ibuprofen. These medicines can thin your blood. Do not take these medicines unless your health care provider tells you to take them. Taking sxrk-wra-inuayaq medicines, vitamins, herbs, and supplements. Tests You may have an exam or testing, such as: X-rays of the bladder, urethra, or kidneys. CT scan of the abdomen or pelvis. Urine tests to check for signs of infection. General instructions Follow instructions from your health care provider about eating or drinking restrictions. Ask your health care provider what steps will be taken to help prevent infection. These steps may include: ?Washing skin with a germ-killing soap. ?Taking antibiotic medicine. Plan to have a responsible adult take you home from the hospital or clinic. What happens during the procedure? You will be given one or more of the following: ?A medicine to help you relax (sedative). ?A medicine to numb the area (local anesthetic). The area around the opening of your urethra will be cleaned. The cystoscope will be passed through your urethra into your bladder. Germ-free (sterile) fluid will flow through the cystoscope to fill your bladder. The fluid will stretch your bladder so that your health care provider can clearly examine your bladder herbert. Your doctor will look at the urethra and bladder. Your doctor may take a biopsy or remove stones. The cystoscope will be removed, and your bladder will be emptied. The procedure may vary among health care providers and hospitals. What can I expect after the procedure? After the procedure, it is common to have: Some soreness or pain in your abdomen and urethra. Urinary symptoms. These include: ?Mild pain or burning when you urinate. Pain should stop within a few minutes after you urinate. This may last for up to 1 week. ?A small amount of blood in your urine for several days. ?Feeling like you need to urinate but producing only a small amount of urine. Follow these instructions at home: Medicines Take oozl-lfg-zntmona and prescription medicines only as told by your health care provider. If you were prescribed an antibiotic medicine, take it as told by your health care provider. Do not stop taking the antibiotic even if you start to feel better. General instructions Return to your normal activities as told by your health care provider. Ask your health care provider what activities are safe for you. If you were given a sedative during the procedure, it can affect you for several hours. Do not drive or operate machinery until your health care provider says that it is safe. Watch for any blood in your urine. If the amount of blood in your urine increases, call your health care provider. Follow instructions from your health care provider about eating or drinking restrictions. If a tissue sample was removed for testing (biopsy) during your procedure, it is up to you to get your test results. Ask your health care provider, or the department that is doing the test, when your results will be ready. Drink enough fluid to keep your urine pale yellow. Keep all follow-up visits. This is important. Contact a health care provider if: You have pain that gets worse or does not get better with medicine, especially pain when you urinate. You have trouble urinating. You have more blood in your urine. Get help right away if: You have blood clots in your urine. You have abdominal pain. You have a fever or chills. You are unable to urinate. Summary Cystoscopy is a procedure that is used to help diagnose and sometimes treat conditions that affect the lower urinary tract. Cystoscopy is done using a thin, tube-shaped instrument with a light and camera at the end. After the procedure, it is common to have some soreness or pain in your abdomen and urethra. Watch for any blood in your urine. If the amount of blood in your urine increases, call your health care provider. If you were prescribed an antibiotic medicine, take it as told by your health care provider. Do not stop taking the antibiotic even if you start to feel better. This information is not intended to replace advice given to you by your health care provider. Make sure you discuss any questions you have with your health care provider. Document Revised: 07/03/2022 Document Reviewed: 06/01/2021 [employer] Patient Education 2022 [employer]. 12/03/2023 15:42:54 Acute Urinary Retention, Male Acute Urinary Retention, Male Acute urinary retention is a condition in which a person is unable to pass urine or can only pass a little urine. This condition can happen suddenly and last for a short time. If left untreated, it can become long-term (chronic) and result in kidney damage or other serious complications. What are the causes? This condition may be caused by: Obstruction or narrowing of the tube that drains the bladder (urethra). This may be caused by surgery, problems with nearby organs, or injury to the bladder or urethra. Problems with the nerves in the bladder. Tumors in the area of the pelvis, bladder, or urethra. Certain medicines. Bladder or urinary tract infection. Constipation. What increases the risk? This condition is more likely to develop in older men. As men age, their prostate may become larger and may start to press or squeeze on the bladder or the urethra. Other chronic health conditions can increase the risk of acute urinary retention. These include: Diseases such as multiple sclerosis. Spinal cord injuries. Diabetes. Degenerative cognitive conditions, such as delirium or dementia. Psychological conditions. A man may hold his urine due to trauma or because he does not want to use the bathroom. What are the signs or symptoms? Symptoms of this condition include: Trouble urinating. Pain in the lower abdomen. How is this diagnosed? This condition is diagnosed based on a physical exam and your medical history. You may also have other tests, including: An ultrasound of the bladder or kidneys or both. Blood tests. A urine analysis. Additional tests may be needed, such as a CT scan, MRI, and kidney or bladder function tests. How is this treated? Treatment for this condition may include: Medicines. Placing a thin, sterile tube (catheter) into the bladder to drain urine out of the body. This is called an indwelling urinary catheter. After it is inserted, the catheter is held in place with a small balloon that is filled with sterile water. Urine drains from the catheter into a collection bag outside of the body. Behavioral therapy. Treatment for other conditions. If needed, you may be treated in the hospital for kidney function problems or to manage other complications. Follow these instructions at home: Medicines Take qyoq-vhs-fgdibxk and prescription medicines only as told by your health care provider. Avoid certain medicines, such as decongestants, antihistamines, and some prescription medicines. Do not take any medicine unless your health care provider approves. If you were prescribed an antibiotic medicine, take it as told by your health care provider. Do not stop using the antibiotic even if you start to feel better. General instructions Do not use any products that contain nicotine or tobacco. These products include cigarettes, chewing tobacco, and vaping devices, such as e-cigarettes. If you need help quitting, ask your health care provider. Drink enough fluid to keep your urine pale yellow. If you have an indwelling urinary catheter, follow the instructions from your health care provider. Monitor any changes in your symptoms. Tell your health care provider about any changes. If instructed, monitor your blood pressure at home. Report changes as told by your health care provider. Keep all follow-up visits. This is important. Contact a health care provider if: You have uncomfortable bladder contractions that you cannot control (spasms). You leak urine with the spasms. Get help right away if: You have chills or a fever. You have blood in your urine. You have a catheter and the following happens: ?Your catheter stops draining urine. ?Your catheter falls out. Summary Acute urinary retention is a condition in which a person is unable to pass urine or can only pass a little urine. If left untreated, this condition can result in kidney damage or other serious complications. An enlarged prostate may cause this condition. As men age, their prostate gland may become larger and may press or squeeze on the bladder or the urethra. Treatment for this condition may include medicines and placement of an indwelling urinary catheter. Monitor any changes in your symptoms. Tell your health care provider about any changes. This information is not intended to replace advice given to you by your health care provider. Make sure you discuss any questions you have with your health care provider. Document Revised: 07/11/2021 Document Reviewed: 07/11/2021 [employer] Patient Education 2022 [employer]. Follow Up Care 10/22/2023 15:11:22 With:AGNES ROJO PA-C, URL Address: [address] [facility] [place] [address] [phone] When: Unknown Comments:sched cysto/uros [facility] Loree 10-10-2023 Evaluation note Encounter Date Diagnosis Assessment Notes Oct, Primary hypertension (ICD-10 - I10) This patient is instructed to consume a healthy, low-fat, low-salt diet. They are also encouraged to continue exercise to achieve/maintai n a normal BMI. Patient is instructed on home BP measurements: - rest for 5 minutes w/o talking- positioned w/ feet on floor and arm supported- average best 2/3 readings w/ goal < 135/85 _update in week Oct, Stage 3b chronic kidney disease (ICD-10 - N18.32) The patient is instructed on adequate control of hypertension and diabetes, if appropriate. They are also educated on the associated risks of NSAIDs and PPI use with kidney disease. They were instructed on adequate fluid balance and to avoid dehydration. Schedule renal US to exclude obstruction Oct, Simple chronic bronchitis (ICD-10 - J41.0) Continue abstinence from tobacco products. Mucolytics as needed Oct, Benign prostatic hyperplasia with lower urinary tract symptoms (ICD-10 - N40.1) Symptoms tolerable per patient but suspect urinary retention and post obstructive uropathy. Renal/bladder US to r/o obstruction Initiate Tamsulosin and plan referral to Urology Oct, Hesitancy of micturition (ICD-10 - R39.11) Oct, Mild cognitive impairment (ICD-10 - G31.84) Hx of closed head injury. Remains functional Oct, Cigarette nicotine dependence in remission (ICD-10 - F17.211) Continue abstinence. LDCT candidate, will discuss further at wellness examination [employer] Other 12-08-2023 Evaluation note* Encounter Date Diagnosis Assessment Notes Treatment Notes Treatment Clinical Notes Oct, Primary hypertension (ICD-10 - I10) This patient is instructed to consume a healthy, low-fat, low-salt diet. They are also encouraged to continue exercise to achieve/maintain a normal BMI. Patient is instructed on home BP measurements: - rest for 5 minutes w/o talking- positioned w/ feet on floor and arm supported- average best 2/3 readings w/ goal < 135/85 _update in week Oct, Stage 3b chronic kidney disease (ICD-10 - N18.32) The patient is instructed on adequate control of hypertension and diabetes, if appropriate. They are also educated on the associated risks of NSAIDs and PPI use with kidney disease. They were instructed on adequate fluid balance and to avoid dehydration. Schedule renal US to exclude obstruction Oct, Benign prostatic hyperplasia with lower urinary tract symptoms (ICD-10 - N40.1) Symptoms tolerable per patient but suspect urinary retention and post obstructive uropathy. Renal/bladder US to r/o obstruction Initiate Tamsulosin and plan referral to Urology Oct, Feeling of incomplete bladder emptying (ICD-10 - R39.14) Oct, Simple chronic bronchitis (ICD-10 - J41.0) Continue abstinence from tobacco products. Mucolytics as needed Oct, Mild cognitive impairment (ICD-10 - G31.84) Hx of closed head injury. Remains functional Oct, Cigarette nicotine dependence in remission (ICD-10 - F17.211) Continue abstinence. LDCT candidate, will discuss further at wellness examination [employer] Other 09-08-2023 Evaluation note* Encounter Date Diagnosis Assessment Notes Treatment Notes Treatment Clinical Notes Jul, Primary hypertension (ICD-10 - I10) This patient is instructed to consume a healthy, low-fat, low-salt diet. They are also encouraged to continue exercise to achieve/maintain a normal BMI. Increase Amlodipine to 10mg qd Jul, Stage 3b chronic kidney disease (ICD-10 - N18.32) The patient is instructed on adequate control of hypertension and diabetes, if appropriate. They are also educated on the associated risks of NSAIDs and PPI use with kidney disease. They were instructed on adequate fluid balance and to avoid dehydration. Discussed etilogy of kidney disease - uncontrolled hypertension contributing - hx of urinary retention: suggest scheduling renal US Jul, Simple chronic bronchitis (ICD-10 - J41.0) Continue abstinence from tobacco products. No inhalers necessary for cough/wheezing, which he denies Jul, Benign prostatic hyperplasia with lower urinary tract symptoms (ICD-10 - N40.1) PSA < 4 w/o previous baseline. Monitor for now. r/o outlet obstruction Jul, Hesitancy of micturition (ICD-10 - R39.11) Jul, Mild cognitive impairment (ICD-10 - G31.84) Friend assisting w/ ADL. Healthy diet, keep active Fall precautions Jul, Cigarette nicotine dependence in remission (ICD-10 - F17.211) COntinue abstinence They are aware of the hazards associated with tobacco use, including but not limited to respiratory infections, vascular disease and cancers. Discussed scheduling LDCT in future [employer] Other 08-31-2023 Evaluation note* Encounter Date Diagnosis Assessment Notes Treatment Notes Treatment Clinical Notes Jun, Primary hypertension (ICD-10 - I10) This patient is instructed to consume a healthy, low-fat, low-salt diet. They are also encouraged to continue exercise to achieve/maintain a normal BMI. Initiate antihypertensive treatment Amlodipine qd, start w/ first dose today Jun, Stage 3a chronic kidney disease (ICD-10 - N18.31) The patient is instructed on adequate control of hypertension and diabetes, if appropriate. They are also educated on the associated risks of NSAIDs and PPI use with kidney disease. They were instructed on adequate fluid balance and to avoid dehydration. Jun, Simple chronic bronchitis (ICD-10 - J41.0) Continue abstinence. No respiratory symptoms presently No need for inhaler therapy Discussed immunization: pneumonia, flu, COVID and RSV all recommended Jun, Benign prostatic hyperplasia with lower urinary tract symptoms (ICD-10 - N40.1) Check GFR and urine protein/creat If significant renal impairment, check renal US to exclude post obstructive uropathy Jun, Hesitancy of micturition (ICD-10 - R39.11) Jun, Mild cognitive impairment (ICD-10 - G31.84) Remote hx of head injury Jun, Cigarette nicotine dependence in remission (ICD-10 - F17.211) Continue abstinence. Denies CP, SOB, wheezing or cough. No inhaler use and no ER visit for AECOPD Jun, Syncope, unspecified syncope type (ICD-10 - R55) Jun, Fatigue, unspecified type (ICD-10 - R53.83) Jun, Screening PSA (prostate specific antigen) (ICD-10 - Z12.5) [employer] Other 08-17-2023 Evaluation note* Encounter Date Diagnosis Assessment Notes Treatment Notes Treatment Clinical Notes Jun, Encounter for removal of sutures (ICD-10 - Z48.02) 5 sutures removed today in office, patient tolerated procedure well. Advised patient that he may leave area RIGOBERTO. Follow-up with PCP for signs signs/symptoms of infection as discussed. Patient verbalizes understanding and is agreeable with treatment plan Jun, Elevated blood pressure reading (ICD-10 - R03.0) Discussed diagnosis with patient today in office. Patient appears to have mild confusion. BP elevated today in office. In patient history, previously stated that he was on blood pressure medications, however, patient does not report taking these any longer. Advised that he needs to reestablish with a PCP for management of his high blood pressure. Advised that I could do a referral for him, patient declines at this time. Wrote down information on how to contact to establish with Dr. Fernando in [place]. Advised patient to head into ER for chest pain, shortness of breath, headaches, fevers greater than 103. Patient verbalizes understanding and is agreeable with treatment plan [employer] Other 12-09-2022 Evaluation note* Encounter Date Diagnosis Assessment Notes Treatment Notes Treatment Clinical Notes Oct, Visit for suture removal (ICD-10 - Z48.02) Suture removal home care material was printed Keep the wounds to the face and upper lip clean and dry. Apply antibiotic ointment to the wounds daily until they are completely healed. 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 Patient is suffering from DJD that has been flared due to injury. We will treat with removable brace. He is to wear it at all times other than for hygiene purposes. Oct, Closed fracture of distal end of right radius, unspecified fracture morphology, initial encounter (ICD-10 - S52.501A) Deniz presents with right just radius fracture. At this juncture we have discussed the findings and diagnosis as well as personally reviewed appropriate imaging and performed interpretation of related testing and examination with the patient in office today. Prior medical notes from [facility] and history have been reviewed. At this time I would recommend splint application and nonweightbearing. We will plan for follow-up 3 to 4 weeks for repeat x-rays. The patient has been involved in our cooperative treatment plan and agrees to move forward with treatment at this time. Oct, Other See orders for this visit as documented in the electronic medical record. [employer] Other Evaluation + Plan note No data available for this section [facility] Evaluation noteNo assessment information available [facility] Work Phone: Evaluation noteNo InformationNort [employer] Other Evaluation note* Diagnosis Onset Date Resolution Status Benign prostatic hyperplasia with lower urinary tract symptoms acute Mild cognitive impairment ac elie Primary hypertension acute Simple chronic bronchitis ac elie Stage 3b chronic kidney disease acute [facility] Work Phone: History general Narrative - Reported* Type Description Date Medical History right arm injury Surgical History eye surgery [employer] Other Hislzcg general Narrative - Reported* Type Description Date Medical History right arm injury Medical History HTN (hypertension) Medical History BPH (benign prostatic hyperplasi a) Medical History Constipation Medical History GERD (gastroesophageal reflux di sease) Medical History Iron deficiency anemia Surgical History eye surgery [employer] Other Hisvtqz general Narrative - Reported* Type Description Date Medical History right arm injury Medical History HTN (hypertension) Medical History BPH (benign prostatic hyperplasi a) Medical History Constipation Medical History GERD (gastroesophageal reflux di sease) Medical History Iron deficiency anemia Surgical History eye surgery Hospitalization History see surgical history [employer] Other History general Narrative - Reported* Type Description Date Medical History right arm injury Medical History HTN (hypertension) Medical History BPH (benign prostatic hyperplasi a) Medical History Constipation Medical History GERD (gastroesophageal reflux di sease) Medical History Iron deficiency anemia Surgical History eye surgery Surgical History Rezum prostate procedure Hospitalization History see surgical history [employer] Other Hospital Discharge instructions No data available for this section [facility] No data available for this section [facility] Reasult Summary Purpose Family History Relationship Condition Age at Onset Recorded Date/T seth father Unknown Not Specified Unknown Relationship Condition Age at Onset Recorded Date/T seth father Unknown mother Unknown Advance Directives Advance Directive Response Recorded Date/ Time Advance Directives No October 2:38pm Advance Directive Response Recorded Date/ Time Advance Directives No October 3:38pm Hospital Course Note MR#: [id number] [facility] Pt. Name: Chano Gomez Admitted: 09/10/2020 Discharged: 09/26/2020 Date of : 1945 Physician: Rohith Salas MD DISCHARGE SUMMARY PRINCIPAL DIAGNOSES: 1. Nonoliguric acute kidney injury secondary to obstructive uropathy with bilateral hydro secondary to enlarged prostate. 2. Non-anion gap metabolic acidosis. 3. Syncope. 4. Acute blood loss anemia. 5. Hypertension. 6. Severe protein calorie malnutrition. IMAGING AND PROCEDURES: Ultrasound of renal showed bilateral hydronephrosis, moderate on the right and severe on the left with diffuse prominent thickening of the urinary bladder. Repeat renal ultrasound subsequently on 09/14/2020 showed slightly improved moderate left and mild right hydronephrosis. Persistent nonspecific bladder wall thickening and decompressed with Bernal catheter. The patient had an EGD which showed normal esophagus, mild gastritis, biopsied to rule out H pylori. The patient had a colonoscopy, was poor pr (more content not included)... Note MR#: [id number] [facility] Pt. Name: Chano Gomez Surgery Date: 09/25/2020 Room #: 4AB [id number] Date of : 1945 PROCEDURE NOTE ATTENDING: Ghada Saravia MD PROCEDURE: Colonoscopy with anesthesia. INDICATIONS: A 75-year-old male, presenting with postobstructive nephropathy, found incidentally to be anemic. The patient denies any overt blood loss; however, does endorse unintentional weight loss over the last 6 months. Procedure being performed for further evaluation of anemia. ANESTHESIA: MAC anesthesia. PROCEDURE IN DETAIL: A physical exam was performed prior to the procedure. The procedure was discussed with the patient in great detail including risks such as risk of perforation, bleeding, risks of anesthesia. The patient verbalized understanding and consented to the procedure. The patient was then brought to the endoscopy room and placed in a left lateral decubitus position. He was connected to appropriate monitoring devices and received oxygen via f (more content not included)... Procedure Findings Note MR#: [id number] [facility] Pt. Name: Chano Gomez Surgery Date: 09/25/2020 Room #: 4AB [id number] Date of : 1945 PROCEDURE NOTE ATTENDING: Ghada Saravia MD PROCEDURE: Colonoscopy with anesthesia. INDICATIONS: A 75-year-old male, presenting with postobstructive nephropathy, found incidentally to be anemic. The patient denies any overt blood loss; however, does endorse unintentional weight loss over the last 6 months. Procedure being performed for further evaluation of anemia. ANESTHESIA: MAC anesthesia. PROCEDURE IN DETAIL: A physical exam was performed prior to the procedure. The procedure was discussed with the patient in great detail including risks such as risk of perforation, bleeding, risks of anesthesia. The patient verbalized understanding and consented to the procedure. The patient was then brought to the endoscopy room and placed in a left lateral decubitus position. He was connected to appropriate monitoring devices and received oxygen via f (more content not included)... Chief Complaint and Reason for Visit Chief Complaint S52.591D Chief Complaint 3 month follow up Reason for Visit Benign prostatic hyp erplasia with lower urinary tract symptoms Mild cognitive impairment Primary hypertension Simple chronic bronchitis Stage 3b chronic kidney disease Chief Complaint 3 Month Check Up Reason for Visit Benign prostatic hyp erplasia with lower urinary tract symptoms Mild cognitive impairment Primary hypertension Simple chronic bronchitis Stage 3b chronic kidney disease Reason for Referral Reason Patient being referr ed for urinary retention and post obstructive uropathy Diagnosis 1 Benign prostatic hyp erplasia with lower urinary tract symptoms (N40.1) Diagnosis 2 Feeling of incomplet e bladder emptying (R39.14) Referral Organization [facility] josh Referring Provider First Name Soham Referring Provider Last Name Abdullahi Referring Provider Specialty Internal Me dicine Referred Organization [facility] Referred Address [address] [facility] [place], [place],[address] Referred Provider Specialty Urology Referral Priority Routine General Notes Mr. Gomez has a hi story of urinary retention and had a bernal placed in the remote past. He was lost to f/u and is unable to recall seeing a Urologist to address this problem. He returned to my practice after a 2 year absence and was found to have CKD. Due to history of urinary retention and ongoing symptoms, I ordered an US of the kidney and bladder. His US revealed findings of CKD and PVR > 300ml. He has been prescribed Flomax and will be referred for further evaluation and treatment. Clinical Notes Include recent labs and US of kidney and bladder. Additional Source Comments (unrecognized sect ion and content) No Status Records FoundNo Status Records FoundNo Status Records FoundNo Status Records FoundNo Status Records FoundNo Status Records Found INFORMATION SOURCE (unrecogn ized section and content) DATE CREATED AUTHOR 10/12/2020 [facility] DATE CREATED AUTHOR AUTHOR'S ORGANIZ ATION 10/23/2020 [facility] DATE CREATED AUTHOR AUTHOR'S ORGANIZ ATION 10/26/[address] [facility] DATE CREATED AUTHOR AUTHOR'S ORGANIZ ATION 10/10/2022 [facility] DATE CREATED AUTHOR AUTHOR'S ORGANIZ ATION 11/14/2022 [facility] DATE CREATED AUTHOR AUTHOR'S ORGANIZ ATION 01/03/[address] [facility] REASON FOR VISIT (unrecogniz ed section and content) Right Wrist InjurySUTURE REM OVALStitches removalNo InformationLab Results1 Week Check UpHigh BP3 month Follow upUS results3 month Follow upNo InformationNo Information Care Teams (unrecognized sec tion and content) Team Status: Active Member Role Status Dates Soham Fernando , DO Primary Care Provider Active Team Status: Inactive Member Role Status Dates Soham Fernando , DO Primary Care Provide r, Attending Provider Active Start: May 04, 2024 End: May 04, 2024 Team Status: Inactive Member Role Status Dates Floyd Rubi , DO Attending Provider Active PHYSICIAN NO FAMILY Primary Care Provider Active Team Status: Active Member Role Status Dates PHYSICIAN NO FAMILY Primary Care Provider Active Team Status: Active Member Role Status Dates Soham Fernando , DO Primary Care Provider Active Team Status: Active Member Role Status Dates Provider Conversion Attending Provider Active St art: November 17, 2023 Team Status: Inactive Member Role Status Dates Soham Fernando , DO Primary Care Provide r, Attending Provider Active Start: February 03, 2024 End: February 03, 2024 Team Status: Inactive Member Role Status Dates Soham Fernando , DO Primary Care Provide r, Attending Provider Active Start: May 04, 2024 End: May 04, 2024 Goals (unrecognized section and content) Goals may be documented in a n alternate section FOR RECORDS PERTAINING TO PATIENTS WHO ARE OR HAVE BEEN ENROLLED IN A CHEMICAL DEPENDENCY/SUBSTANCEABUSE PROGRAM, SOME INFORMATION MAY BE OMITTED. This clinical summary was aggregated from multiple sources. Caution should be exercised in using it in the provision of clinical care. This summary normalizes information from multiple sources, and as a consequence, information in this document may materially change the coding, format and clinical context of patient data. In addition, data may be omitted in some cases. CLINICAL DECISIONS SHOULD BE BASED ON THE PRIMARY CLINICAL RECORDS. [facility]. provides no warranty or guarantee of the accuracy or completeness of information in this document.
[2024-08-18 10:55] LABS: Basophils Percent Auto 0.4 % (0.2-2.0); Eosinophils Absolute Auto 0.1 10^3/uL (0.0-0.7); Eosinophils Percent Auto 1.9 % (0.9-7.0); Hematocrit 36.5 % (42.0-54.0); Hemoglobin 12.2 g/dL (14.0-18.0); Immature Granulocytes Abs Auto 0.01 10^3/uL (0.00-0.03); Immature Granulocytes Pct Auto 0.1 % (0.0-0.5); Lymphocytes Absolute Auto 2.5 10^3/uL (1.2-3.8); Lymphocytes Percent Auto 34.2 % (20.5-60.0); Mean Corpuscular HGB Conc 33.4 g/dL (29.9-35.2); Mean Corpuscular Hemoglobin 29.9 pg (25.9-34.0); Mean Corpuscular Volume 89.5 fL (80.0-94.0); Monocytes Absolute Auto 0.6 10^3/uL (0.3-0.8); Monocytes Percent Auto 7.6 % (1.7-12.0); Neutrophils Percent Auto 55.8 % (43.0-75.0); Platelet Count 233 10^3/uL (150-450); Red Blood Count 4.08 10^6/uL (4.70-6.10); Red Cell Distribution Width 14.8 % (11.0-15.0); White Blood Count 7.3 10^3/uL (4.0-11.0)
[2024-08-18 11:34] LABS: Alanine Aminotransferase 17 U/L (16-63); Albumin Globulin Ratio 0.7; Albumin Level 3.4 g/dL (3.4-5.0); Alkaline Phosphatase 71 U/L (46-116); Anion Gap 15.2; Aspartate Amino Transferase 13 U/L (15-37); BUN Creatinine Ratio 11.3; Bilirubin Total 0.8 mg/dL (0.2-1.0); Calcium 9.7 mg/dL (8.5-10.1); Carbon Dioxide 27.6 mmol/L (21.0-32.0); Chloride 102 mmol/L (98-107); Estimated GFR (African America 32 (>=60 mL/min/1.73m^2); Estimated GFR (Non-African Ame 26 (>=60 mL/min/1.73m^2); Globulin 4.6 g/dL; Glucose 111 mg/dL (74-106); Potassium 3.8 mmol/L (3.5-5.1); Sodium 141 mmol/L (136-145)
== END 2024-08-18 10:38 | disposition home or self-care (01) ==
LOC: LAB 10:39
PROVIDERS: PCP Internal Medicine; Visit Provider Internal Medicine
DX: I12.9 Hypertensive chronic kidney disease with stage 1 through stage 4 chronic kidney disease, or unspecified chronic kidney disease (principal); N18.32 Chronic kidney disease, stage 3b
CPT/HCPCS: 36415; 80053; 85025

== ENCOUNTER 2024-09-15 10:44 | Outpatient (OUT) | payer MEDICARE, OTHER, SELFPAY ==
--- NOTE | 2024-09-15 10:48 | US_ITS ---
The [address] [address] Patient Name: DENIZ GÓMEZ MRN: [id number] date: 1945 Sex: M Assigned Patient Location: US Current Patient Location: Accession/Order Number: [id number] Exam Date: 09/15/2024 10:50 Report Date: 09/16/2024 06:46 At the request of: BLANCHE WILSON Procedure: US renal BI EXAMINATION: US renal BI HISTORY: Stage 3B Chronic Kidney Disease COMPARISON: Ultrasound kidneys 10/15/2023 TECHNIQUE: Ultrasound examination was performed of the kidneys and urinary bladder. FINDINGS: RIGHT KIDNEY: 1.2 cm benign-appearing cysts within inferior pole. No evidence of pelvocaliectasis, mass, or calculi. Mild to moderate cortical thinning, 5 mm. Normal parenchymal echogenicity. Color Doppler demonstrates blood flow within the kidney. Kidney: 5.3 x 3.2 x 3.67 m LEFT KIDNEY: No evidence of pelvocaliectasis, mass, or calculi. No significant cortical thinning, 11 mm. Normal parenchymal echogenicity. Color Doppler demonstrates blood flow within the kidney. Kidney: 9.1 x 4.7 x 4.7 cm BLADDER: No visible wall thickening, mass, or calculi. OTHER: Slightly prominent prostate protruding into base of bladder. US/US renal BI IMPRESSION: 1. No hydronephrosis, mass, or obstructive uropathy. 2. Mild/moderate cortical thinning of right kidney. No significant cortical thinning of left kidney. 3. Slightly prominent prostate protruding into base of bladder; closed unremarkable urinary bladder. Electronically authenticated by: DIOR GANT Date: 09/16/2024 06:46
[2024-09-15 11:46] LABS: Creatinine Urine Random <13.00 mg/dL (20.00-300.00); Total Protein Urine Random 16.1 mg/dL (<=11.9)
[2024-09-15 12:38] LABS: Percent Iron Saturation 13.1 %
[2024-09-16 04:08] LABS: Vitamin B12 930 pg/mL (232-1245)
[2024-09-17 16:11] LABS: Albumin 3.8 g/dL (2.9-4.4); Alpha-1-Globulin 0.3 g/dL (0.0-0.4); Alpha-2-Globulin 0.8 g/dL (0.4-1.0); Free Kappa Lt Chains,S 65.7 mg/L (3.3-19.4); Free Lambda Lt Chains,S 49.6 mg/L (5.7-26.3); Gamma Globulin 1.3 g/dL (0.4-1.8); Immunoglobulin A, Qn, Serum 475 mg/dL (61-437); Immunoglobulin G, Qn, Serum 1307 mg/dL (603-1613); Immunoglobulin M, Qn, Serum 96 mg/dL (15-143); Kappa/Lambda Ratio,S 1.32 (0.26-1.65); Protein, Total 7.6 g/dL (6.0-8.5)
== END 2024-09-15 10:45 | disposition home or self-care (01) ==
LOC: US 10:44
PROVIDERS: PCP Internal Medicine; Visit Provider Internal Medicine
DX: I12.9 Hypertensive chronic kidney disease with stage 1 through stage 4 chronic kidney disease, or unspecified chronic kidney disease (principal); N18.32 Chronic kidney disease, stage 3b; D64.9 Anemia, unspecified
CPT/HCPCS: 36415; 76775; 82570; 82607; 82728; 82746; 82784; 83521; 83540; 83550; 84155; 84156; 84165

== ENCOUNTER 2024-11-17 13:14 | Inpatient (IN) | payer MEDICARE, OTHER, SELFPAY ==
[2024-11-17] VITALS (23 sets, daily range): BP systolic 132–223; BP diastolic 84–139; PULSE 60–95; TEMP 36.3–36.6; O2SAT 96–99; BMI 18.3
--- NOTE | 2024-11-17 13:21 | ECG_ITS ---
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
--- NOTE | 2024-11-17 13:23 | ED.GENADUL1 ---
HPI HPI - General Adult General Chief complaint: Fall Stated complaint: GENERAL WEAKNESS Time Seen by Provider: 11/17/24 13:16 Source: patient and EMR Mode of arrival: ambulance Limitations: altered mental status History of Present Illness HPI narrative: Patient is a 79-year-old male who presents to the emergency department after rolling out of bed. He arrives by ambulance after his called 911. She states that he has been confused today. EMS reports that he has a history of chronic kidney disease. Patient is alert and oriented to self and place. He is disoriented to time. The remainder of the history is limited as the patient is confused although he denies any pain or recent illness. He does not believe he ate today. Related Data Allergies Allergy/AdvReac Type Severity Reaction Status Date / Time No Known Drug Allergies Allergy Verified 06/10/23 17:58 Opioid HPI Opioid Management Most Recent Opioid Data: No Data to Display Review of Systems ROS Status of ROS unobtainable due to medical condition and unobtainable due to mental status PFSH PFSH Social History Little interest or pleasure in doing things: not at all Feeling down, depressed, or hopeless: not at all Exam Narrative Exam Narrative: Gen.: Awake, alert, in no distress; patient in pants and underwear that is soaked with urine Head: Normocephalic, atraumatic ENT: Moist mucous membranes; no evidence of facial or dental injury; C-spine nontender Respiratory: No respiratory distress, lungs clear bilaterally Cardio: Regular rate and rhythm Gastrointestinal: Abdomen is soft, nondistended and nontender to palpation; pelvis is stable and hips are nontender Extremities: Moves extremities equally, no injuries noted Psych: Normal mood and affect Neuro: No focal neuro deficit Skin: Warm, dry, intact Constitutional Vital Signs, click to edit/add: Last Vital Signs Temp 97.6 F 11/17/24 13:24 Pulse 84 11/17/24 13:24 Resp 11/17/24 13:24 BP 223/139 H 11/17/24 13:24 O2 Del Method Room Air 11/17/24 13:24 Course Vital Signs Vital signs: Vital Signs Temperature 97.6 F 11/17/24 13:24 Pulse Rate 84 11/17/24 13:24 Respiratory Rate 20 11/17/24 13:24 Blood Pressure 223/139 H 11/17/24 13:24 Oxygen Delivery Method Room Air 11/17/24 13:24 Temperature 97.6 F 11/17/24 13:24 Pulse Rate 84 11/17/24 13:24 Respiratory Rate 20 11/17/24 13:24 Blood Pressure 223/139 H 11/17/24 13:24 Oxygen Delivery Method Room Air 11/17/24 13:24 Medical Decision Making MDM Narrative Medical decision making narrative: This patient was treated with IV fluids, oral potassium replenishment for hypokalemia 2.8. CT of the brain, C-spine as well as x-rays of the chest and pelvis are unremarkable per the radiologist. Artifact noted on EKG, patient does not complain of chest pain or shortness of breath in the ER. Significantly elevated initial blood pressure was treated with labetalol and Vasotec, he had improvement with these medications. Straight catheter urine obtained, patient had over 1000 mL in his bladder but is able to urinate without difficulty. Case discussed with hospitalist for admission for altered mental status, generalized weakness, hypokalemia, hypertension. Stable at time of admission. SUPERVISED APC VISIT, PHYSICIAN ATTESTATION: Based on the medical record the care appears appropriate. ? Medical Records Medical records reviewed: Yes I reviewed the patient's medical records Lab Data Lab results reviewed: Yes I reviewed the patient's lab results Labs: Lab Results 11/17/24 11/17/24 11/17/24 Range/Units 13:20 13:44 13:48 WBC 13.5 H (4.0-11.0) 10^3/uL RBC 3.94 L (4.70-6.10) 10^6/uL Hgb 11.3 L (14.0-18.0) g/dL Hct 34.0 L (42.0-54.0) % MCV 86.3 (80.0-94.0) fL MCH 28.7 (25.9-34.0) pg MCHC 33.2 (29.9-35.2) g/dL RDW 15.2 H (11.0-15.0) % Plt Count 312 (150-450) 10^3/uL MPV 10.7 (9.5-13.5) fL Neut % (Auto) 86.6 H (43.0-75.0) % Lymph % (Auto) 8.0 L (20.5-60.0) % [place] % (Auto) 5.0 (1.7-12.0) % Eos % (Auto) 0.0 L (0.9-7.0) % Baso % (Auto) 0.1 L (0.2-2.0) % Neut # (Auto) 11.7 H (1.4-6.5) 10^3/uL Lymph # (Auto) 1.1 L (1.2-3.8) 10^3/uL [place] # (Auto) 0.7 (0.3-0.8) 10^3/uL Eos # (Auto) 0.0 (0.0-0.7) 10^3/uL Baso # (Auto) 0.0 (0.0-0.1) 10^3/uL Abs Immat Gran (auto) 0.04 H (0.00-0.03) 10^3/uL Imm/Tot Granulo (auto) 0.3 (0.0-0.5) % PT 10.6 (9.0-11.6) sec INR 1.00 VBG pH 7.404 (7.330-7.430) VBG pCO2 42.0 (40.0-52.0) mmHg Sodium 136 (136-145) mmol/L Potassium 2.8 L* (3.5-5.1) mmol/L Chloride 98 (98-107) mmol/L Carbon Dioxide 27.9 (21.0-32.0) mmol/L Anion Gap 12.9 BUN 50.0 H (7.0-18.0) mg/dL Creatinine 3.03 H (0.70-1.30) mg/dL Est GFR ( Amer) 24 L (>=60 mL/min/1.73m^2) Est GFR (Non-Af Amer) 20 L (>=60 mL/min/1.73m^2) BUN/Creatinine Ratio 16.5 Glucose 156 H (74-106) mg/dL Lactate 1.8 (0.4-2.0) mmol/L Calcium 10.0 (8.5-10.1) mg/dL Total Bilirubin 0.6 (0.2-1.0) mg/dL AST 30 (15-37) U/L ALT 22 (16-63) U/L Alkaline Phosphatase 66 (46-116) U/L Troponin I High Sens 37.5 (4.0-76.1) pg/mL NT-Pro-B Natriuret Pep 2335.0 H* (<=1800.0) pg/mL Total Protein 8.4 H (6.4-8.2) g/dL Albumin 3.7 (3.4-5.0) g/dL Globulin 4.7 g/dL Albumin/Globulin Ratio 0.8 TSH 1.486 (0.358-3.740) uIU/mL Urine Color Lt. yellow (YELLOW) Urine Clarity Clear (CLEAR) Urine pH 6.0 (5.0-9.0) Ur Specific [place] 1.020 (1.005-1.025) Urine Protein >=300 A (NEG/TRACE) mg/dL Urine Glucose (UA) Negative (NEGATIVE) mg/dL Urine Ketones Negative (NEGATIVE) mg/dL Urine Occult Blood Moderate A (NEGATIVE) Urine Nitrite Negative (NEGATIVE) Urine Bilirubin Negative (NEGATIVE) Urine Urobilinogen 0.2 (0.2-1.0) EU/dL Ur Leukocyte Esterase Trace A (NEGATIVE) Urine RBC 2-5 A (0-2) #/HPF Urine WBC 2-5 A (NONE SEEN) #/HPF Ur Squamous Epith Cells None seen (NONE/RARE) #/LPF Urine Crystals None seen (None Seen) #/HPF Urine Bacteria Trace A (NONE SEEN) #/HPF Urine Casts None seen (NONE SEEN) #/LPF Urine Mucus None seen (NONE SEEN) Ur Culture Indicated? No Influenza Type A Ag Negative Influenza Type B Ag Negative RSV Antigen Not detected (NOT DETECTE) SARS-CoV-2 Ag (CV2AG) Negative (NEGATIVE) Imaging Data CT scan - head: Attestation: I have reviewed the pertinent imaging results. Radiologist's impression: ITS Impressions Cervical Spine CT 11/17/24 13:37 IMPRESSION: 1. No acute intracranial process. 2. No acute fracture or malalignment of the cervical spine. Electronically authenticated by: TAMARA MARTINEZ Date: 11/17/2024 13:54 Chest X-Ray 11/17/24 13:37 IMPRESSION: No acute abnormality Moderate amount of stool in the rectum Electronically authenticated by: ALYSA JOE Date: 11/17/2024 13:[address] 11/17/24 13:37 IMPRESSION: 1. No acute intracranial process. 2. No acute fracture or malalignment of the cervical spine. 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 EKG reviewed by attending physician) Discharge Plan Discharge Chief Complaint: Fall Patient Disposition: Admitted As Inpatient Time of Disposition Decision: 14:36
--- NOTE | 2024-11-17 13:37 | XR_ITS ---
[address] [address] Patient Name: DENIZ GÓMEZ MRN: [id number] date: 1945 Sex: M Assigned Patient Location: ER Current Patient Location: ER Accession/Order Number: [id number] Exam Date: 11/17/2024 13:25 Report Date: 11/17/2024 13:59 At the request of: ANDRES LONDONO Procedure: XR pelvis 1-2V EXAMINATION: XR chest 1V, XR pelvis 1-2V HISTORY: Fall, confusion COMPARISON: No relevant comparison available. FINDINGS: LUNGS: No infiltrate, pneumothorax, or pleural effusion. MEDIASTINUM: No abnormal widening. BOWEL GAS PATTERN: Non-obstructed. Moderate stool in the rectum FREE AIR: None. CALCIFICATIONS: None significant. BONES: No fracture or visible bone lesion. Mild to moderate degenerative changes of the spine. Moderate right hip and mild left hip osteoarthritis OTHER: Negative. XR/XR pelvis 1-2V IMPRESSION: No acute abnormality Moderate amount of stool in the rectum Electronically authenticated by: ALYSA JOE Date: 11/17/2024 13:59
--- NOTE | 2024-11-17 13:37 | CT_ITS ---
The [address] [address] Patient Name: DENIZ GÓMEZ MRN: [id number] date: 1945 Sex: M Assigned Patient Location: ER Current Patient Location: Accession/Order Number: [id number] Exam Date: 11/17/2024 13:25 Report Date: 11/17/2024 13:54 At the request of: ANDRES LONDONO Procedure: CT cervical spine wo con EXAM: CT head/brain wo con, CT cervical spine wo con HISTORY: Fall, confusion COMPARISON: CT head 06/10/2023, CT cervical spine 10/06/2022. TECHNIQUE: Axial noncontrast CT imaging of the head and cervical spine was performed with coronal and sagittal reformats. This CT exam was performed using one or more of the following dose reduction techniques: Automated exposure control, adjustment of the MA and/or kV according to patient size, or use of iterative reconstruction technique. FINDINGS: CT head Calvarium/skull base: No evidence of acute fracture or destructive lesion. Left [place]a ocular lens replacement. Paranasal sinuses: No air fluid levels. Brain: No acute intracranial hemorrhage. No acute large vascular territory infarct. Confluent supratentorial white matter hypoattenuation which most commonly relates to sequela of small vessel disease. Stable moderate parenchymal volume loss. 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 No mass lesion or mass effect. No hydrocephalus. Intracranial atherosclerosis. CT cervical spine Alignment: Stable alignment of the cervical spine compared to 10/06/2022 with prominence of the upper cervical lordosis and increased kyphotic curvature involving the lower cervical thoracic junction. Vertebrae: Similar chronic mild anterior wedging of C6 and C7. No acute fracture. Diffuse osteopenia. Craniocervical junction: Stable appearance of partially calcified probable pseudopannus dorsal to the dens which minimally narrows the craniocervical junction. Degenerative changes: Stable moderate degenerative change of the cervical spine with multilevel moderate to advanced uncovertebral and facet arthropathy and multilevel posterior disc osteophyte complexes. There is advanced canal stenosis at C3-C4 and multilevel moderate or advanced foraminal stenosis, greater on the right. Additional Comments: Mild vascular sclerosis. Visualized portion of the upper lungs are clear. CT/CT cervical spine wo con IMPRESSION: 1. No acute intracranial process. 2. No acute fracture or malalignment of the cervical spine. Electronically authenticated by: TAMARA MARTINEZ Date: 11/17/2024 13:54
--- NOTE | 2024-11-17 13:37 | CT_ITS ---
The [address] [address] Patient Name: DENIZ GÓMEZ MRN: [id number] date: 1945 Sex: M Assigned Patient Location: ER Current Patient Location: Accession/Order Number: [id number] Exam Date: 11/17/2024 13:25 Report Date: 11/17/2024 13:54 At the request of: ANDRES LONDONO Procedure: CT head/brain wo con EXAM: CT head/brain wo con, CT cervical spine wo con HISTORY: Fall, confusion COMPARISON: CT head 06/10/2023, CT cervical spine 10/06/2022. TECHNIQUE: Axial noncontrast CT imaging of the head and cervical spine was performed with coronal and sagittal reformats. This CT exam was performed using one or more of the following dose reduction techniques: Automated exposure control, adjustment of the MA and/or kV according to patient size, or use of iterative reconstruction technique. FINDINGS: CT head Calvarium/skull base: No evidence of acute fracture or destructive lesion. Left [place] ocular lens replacement. Paranasal sinuses: No air fluid levels. Brain: No acute intracranial hemorrhage. No acute large vascular territory infarct. Confluent supratentorial white matter hypoattenuation which most commonly relates to sequela of small vessel disease. Stable moderate parenchymal volume loss. 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 No mass lesion or mass effect. No hydrocephalus. Intracranial atherosclerosis. CT cervical spine Alignment: Stable alignment of the cervical spine compared to 10/06/2022 with prominence of the upper cervical lordosis and increased kyphotic curvature involving the lower cervical thoracic junction. Vertebrae: Similar chronic mild anterior wedging of C6 and C7. No acute fracture. Diffuse osteopenia. Craniocervical junction: Stable appearance of partially calcified probable pseudopannus dorsal to the dens which minimally narrows the craniocervical junction. Degenerative changes: Stable moderate degenerative change of the cervical spine with multilevel moderate to advanced uncovertebral and facet arthropathy and multilevel posterior disc osteophyte complexes. There is advanced canal stenosis at C3-C4 and multilevel moderate or advanced foraminal stenosis, greater on the right. Additional Comments: Mild vascular sclerosis. Visualized portion of the upper lungs are clear. CT/CT head/brain wo con IMPRESSION: 1. No acute intracranial process. 2. No acute fracture or malalignment of the cervical spine. Electronically authenticated by: TAMARA MARTINEZ Date: 11/17/2024 13:54
--- NOTE | 2024-11-17 13:37 | XR_ITS ---
The [address] [address] Patient Name: DENIZ GÓMEZ MRN: [id number] date: 1945 Sex: M Assigned Patient Location: ER Current Patient Location: ER Accession/Order Number: [id number] Exam Date: 11/17/2024 13:25 Report Date: 11/17/2024 13:59 At the request of: ANDRES LONDONO Procedure: XR chest 1V EXAMINATION: XR chest 1V, XR pelvis 1-2V HISTORY: Fall, confusion COMPARISON: No relevant comparison available. FINDINGS: LUNGS: No infiltrate, pneumothorax, or pleural effusion. MEDIASTINUM: No abnormal widening. BOWEL GAS PATTERN: Non-obstructed. Moderate stool in the rectum FREE AIR: None. CALCIFICATIONS: None significant. BONES: No fracture or visible bone lesion. Mild to moderate degenerative changes of the spine. Moderate right hip and mild left hip osteoarthritis OTHER: Negative. XR/XR chest 1V IMPRESSION: No acute abnormality Moderate amount of stool in the rectum Electronically authenticated by: ALYSA JOE Date: 11/17/2024 13:59
[2024-11-17 13:44] LABS: Influenza Virus A Antigen Negative; Influenza Virus B Antigen Negative; Internal Control Within Normal Limits
[2024-11-17 13:45] LABS: Internal Control Within Normal Limits; Respiratory Syncytial Virus Not Detected (NOT DETECTE); SARS-CoV-2 Ag NEGATIVE (NEGATIVE)
--- OUTSIDE RECORDS SUMMARY | 2024-11-17 13:52 | XMS_ITS | CCD ---
Author Organization [facility] Care Team Providers Care Mannequin Refinisher Name Role Phone Unavailable Primary Care Provider Unavailabl ROHITH Zamorano Attending Unavailable RUSTY SANDOVAL Admitting Unavailable SELF, REFERRED Referring Unavailable SELF, REFERRED Primary Care Unavailable [place] Procedure Practitioner Unavailab GHADA Zacarias Surgeon Unavailable ROHITH SALAS Surgeon Unavailable [place] Procedure Practitioner Unavailab le MARJORIE, JEFFRY S [...] Medication Allergies] Propensity to adverse reactions (disorder) [facility] Repository Medications Current Medications Medication Drug Class(es) Dates Sig (Normalized) Sig (Original) amLODIPine 10 mg oral tablet (20 sources) Dihydropyridine Calcium Channel Jasen Start: 12-04-2020 End: 08-16-2024 take 10 mg by mouth once daily Amlodipine Active 10 MG PO Daily August 16, 2024 3:19pm Start: 11-15-2020 take 1 tablet by key once daily amLODIPine 5 mg Tab 5 mg = 1 tab(s), Oral, Daily Start Date: 11/15/20 Status: Ordered Centrum (2 sources) Start: 11-15-2020 Centrum Oral, Daily Start Date: 11/15/20 Status: Ordered ciprofloxacin 500 mg oral tablet (1 source) Quinolone Antimicrobial Start: 12-10-2023 Cipro 500 mg Tab See Instructions, Take 1 tab day prior to procedure and 1 tab day of procdure - afterwards, # 2 tab(s), Refills(s) 0, Pharmacy: [facility] 1155, 177, cm, 12/03/23 15:04:00 EST, Height/Length Dosing, 66.5, kg, 12/03/23 15:04:00 EST, Weight Dosing Start Date: 12/10/23 Status: Ordered cloNIDine hydrochloride 0.1 mg oral tablet (13 sources) Central alpha-2 Adrenergic Agonist Start: 05-04-2024 End: 08-16-2024 take 0.1 mg by mouth twice daily Clonidine Hcl Active 0.1 MG PO Twice daily August 16, 2024 3:19pm Start: 12-03-2023 End: 05-04-2024 take 0.1 mg by mouth once daily at bedtime Clonidine Hcl Discontinued 0.1 MG PO Daily at bedtime February 03, 2024 12:00am May 04, 2024 1:51pm Start: 10-10-2023 take 1 tablet by key every twelve hours cloNIDine HCl 0.1 MG 1 tablet Orally bid for 30 days Oct, Active docusate sodium 50 mg oral capsule (10 sources) Start: 11-17-2020 Docusate Sodiu m 50MG Docusate Sodium( 50MG Oral 2 three times daily ) Active -Hx Entry Oral three times daily for 0 *Pick strength-form from [employer] for eRX* 15 Nov, 2020 Not-Taking/PRN ferrous fumarate 325 mg oral tablet (2 sources) Start: 11-15-2020 take 1 tablet by mouth once daily ferrous fumarate 325 mg oral tablet 325 mg = 1 tab(s), Oral, Daily Start Date: 11/15/20 Status: Ordered tamsulosin hydrochloride 0.4 mg oral capsule (18 sources) alpha-Adrenerg ic Jasen Start: 12-03-2023 End: 11-27-2024 take 2 capsules by mouth once daily tamsulosin 0.4 mg Cap 0.8 mg = 2 cap(s), Oral, Daily, X 90 day(s), # 180 cap(s), Refills(s) 3, Pharmacy: [facility]/pharmacy #[id number], 177, cm, 12/03/23 15:04:00 EST, Height/Length Dosing, 66.5, kg, 12/03/23 15:04:00 EST, Weight Dosing Start Date: 12/03/23 Stop Date: 11/27/24 Status: Ordered Start: 12-04-2020 End: 08-16-2024 take 0.4 mg by mouth once daily at bedtime Tamsulosin Active 0.4 MG PO Daily at bedtime 30 August 16, 2024 3:19pm Completed/Discontinued Medications Medication Drug Class(es) Dates Sig (Normalized) Sig (Original) Acetaminophen (12 sources) Tylenol Not-Taki ng/PRN Tylenol Not-Taki ng Tylenol Active Ferrex 150 150MG (10 sources) Start: 12-29-2020 Ferrex 150 150 MG Ferrex 150 150MG, 1 (one) Capsule daily # 30, 12/29/2020, Ref. x2. Active Oral daily for 30 *Pick strength-form from [employer] for eRX* Dec, Not-Taking/PRN Start: 12-29-2020 Ferrex 150 150 MG Ferrex 150 150MG, 1 (one) Capsule daily # 30, 12/29/2020, Ref. x2. Active Oral daily for 30 *Pick strength-form from [employer] for eRX* Dec, Not-Taking sodium bicarbonate 325 mg oral tablet (10 sources) Start: 12-04-2020 take 1 tablet by mouth twice daily as needed Sodium Bicarbonate 325MG Sodium Bicarbonate 325MG, 2 (two) Tablet two times daily # 120, 12/04/2020, Ref. x11. Active Oral two times daily for 30 *Pick strength-form from [employer] for eRX* Dec, Not-Taking/PRN Problems Active Problems [...] Chronic Chronic obstructive pulmonary disease and bronchiectasis (19 sources) Simple chronic bronchitis; Translations: [Simple chronic [...] wrist] Chronic Other aftercare (1 source) Other residential (current) drug therapy; Translations: [OTH HIV CTS SPECIALIST CURRENT DRUG THERAPY] Onset: 10-09-2022 Episodic Other [...] Other hereditary and degenerative nervous system conditions (12 sources) Impaired cognition; Translations: [Mild cognitive impairment, so stated] 2024 Chronic Other hereditary and degenerative nervous system conditions (7 sources) Mild cognitive impairment, so stated; Translations: [Mild cognitive impairment, so stated] Chronic Other nervous system disorders (1 source) Unsteady when turning; Translations: [Other abnormalities of gait and mobility] 05-04-2024 Episodic Other nervous system disorders (1 source) Other abnormalities of gait and mobility; Translations: [Other symptoms involving nervous and musculoskeletal systems] 08-16-2024 Episodic Other screening for suspected conditions (not mental disorders or infectious disease) (1 source) Encounter for screening for malignant neoplasm of prostate Episodic Screening and history of mental health and substance abuse codes (1 source) Personal history of nicotine dependence; Translations: [PERSONAL HISTORY OF NICOTINE DEPEND] Onset: 10-09-2022 Episodic Substance-related disorders (16 sources) Tobacco dependence in remission; Translations: [Nicotine [...] to determine if prostate has regrown since Rezu and uros to assess bladder function. Pt [...] are simple Follow-up With When Contact Information DARREL MENDEZ, AGNES Horton, URL [address] [facility] [address] [phone] Additional Instructions: sched cysto/uros Patient Education Urodynamic Testing Cystoscopy Acute Urinary Retention, Male Documentation recorded by the scribclifford Nash accurately reflects the services(s) I performed and decisions made by me. Authenticated by Agnes Rojo PA-C on 12/05/2023 09:19:14. I, Brianne Nash, personally scribed for Agnes Rojo PA-C on 12/03/2023 15:49:13. . 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 Normal [facility] Comment on above: Result Comment: Elec tronically Signed By: AGNES ROJO PA-C\.br\Date and Time Signed: 12/05/23 09:19 EST\.br\Electronically Co-Signed By: Brianne Nash\.br\Date and Time Co-Signed: 12/03/23 15:50 EST Physician Referralon 024 Physician Referral [id number] TIFF Normal [facility] Screenson 12-04-2023 Screens [id number] IFF Normal [facility] Ambulatory Visit Summaryon 0 12-03-2023 Ambulatory Visit Summary DENIZ GOMEZ :1945 Visit Date:12/03/2023 Ambulatory Visit Instructions Your Diagnosis [...] Appointments Follow Up with AGNES ROJO PA-C, URL When: Comments: sched cysto/uros Where: [address] [place] [address] [phone] Medications What How Much When Instructions Changed tamsulosin (tamsulosin 0.4 mg Cap) 2 Capsules By Mouth Every day Duration: 90 Days Pickup at [facility]/pharmacy #[id number] Unchanged amlodipine (amLODIPine 5 mg [...] physician if questions or concerns Pharmacy Information [facility]/pharmacy #[id number]: [address] [place], [place] [phone] Allergies No Known Medication Allergies Problems Ongoing [...] including vitamins, herbs, eye drops, creams, and ktoo-bxu-zrwpqnm medicines. ? Whether you are or may [...] that create (more content not included)... Normal [facility] Patient Educationon 12-03-19 Patient Education Urology Urodynamic [...] including vitamins, herbs, eye drops, creams, and gfno-wht-rokzjby medicines. ? Whether you are or may [...] results be (more content not included)... Normal [facility] Comprehensive Metabolic Pane angeline 07-04-2023 Albumin [Mass/Vol] 3.766220 g/dL Normal 3.4-5.0 g/dL [place] [facility] Other ALP [Catalytic activity/Vol] 59 U/L Normal 46-116 U/L [facility] Other ALT [Catalytic activity/Vol] 23 U/L Normal 16-63 U/L [facility] Other Anion gap [Moles/Vol] 11.3 mmol/L No rt [facility] Other AST [Catalytic activity/Vol] 20 U/L Normal 15-37 U/L [facility] Other Bilirubin [Mass/Vol] 0.0677364 mg/dL Normal 0.2- 1.0 mg/dL [facility] Other Calcium [Mass/Vol] 9.5453737 mg/dL Normal 8.5-10 .1 mg/dL [facility] Other Chloride [Moles/Vol] 101 mmol/L Normal 98-107 mmol/L [facility] Other CO2 [Moles/Vol] 31.59554647 mmol/L Normal 21.0-3 2.0 mmol/L [facility] Other Creatinine [Mass/Vol] 2.87210519 mg/dL High 0. 70-1.30 mg/dL [facility] Other Glucose [Mass/Vol] 148 mg/dL High 74-106 mg/dL [facility] Other Potassium [Moles/Vol] 3.66611285 mmol/L Low 3 .5-5.1 mmol/L [facility] Other Protein [Mass/Vol] 8.946646 g/dL Normal 6.4-8.2 g/dL [facility] Other Sodium [Moles/Vol] 140 mmol/L Normal 136-145 mmol/L [facility] Other Urea nitrogen [Mass/Vol] 33.9873472 mg/dL High 7.0-18.0 mg/dL [facility] Other Urea nitrogen/Creatinine [Mass ratio] 14.5 mg/mg [facility] Other Comprehensive Metabolic Panel 4.5 g/dL [facility] Other Comprehensive Metabolic Panel 0.8 [facility] Other Comprehensive Metabolic Panel see note [facility] Other Comprehensive Metabolic Panel 28 Low >=60 [facility] Other Comprehensive Metabolic Panel 34 Low >=60 [facility] Other PSA SCREENINGon 07-04-2023 PSA SCREENING 3.74 ng/mL <=4.00 ng/mL [facility] Other UA RANDOM W/MICROSCOPICon Clarity (U) CLEAR CLEAR [facility] Other Color (U) LT. YELLOW YELLOW [facility] Other Ketones Ql (U) Negative NEGATIVE mg/dL [facility] Other Leukocyte esterase Test strip Ql (U) Negative NEGATIVE [facility] Other pH (U) 6.5 [pH] 5.0-9.0 [facility] Other UA RANDOM W/MICROSCOPIC 0-2 #/HPF Abnormal NONE SEEN #/HPF [facility] Other UA RANDOM W/MICROSCOPIC NONE SEEN #/HPF None Seen #/HPF [facility] Other UA RANDOM W/MICROSCOPIC 1.015 1.005-1.025 [facility] Other UA RANDOM W/MICROSCOPIC 30 mg/dL Abnormal NEG/TRACE mg/dL [facility] Other UA RANDOM W/MICROSCOPIC Negative NEGATIVE [facility] Other UA RANDOM W/MICROSCOPIC 0.2 EU/dL 0.2-1.0 EU/dL [facility] Other UA RANDOM W/MICROSCOPIC NONE SEEN NONE SEEN [facility] Other UA RANDOM W/MICROSCOPIC NONE SEEN #/LPF NONE SEEN #/LPF [facility] Other XR wrist RT 2Von 11-01-2022 XR wrist RT 2V [facility] [place] [address] [place] [address] XRay Report Signed Patient: Deniz Gomez MR#: [id number] : 1945 Acct:[id number] Age/Sex: 77 / M ADM Date: 11/01/22 Loc: [facility] Room: Type: [facility] Attending Dr: Floyd Rubi DO Copies to: [...] SEEN. Impression dictated by: Jeffry Waterman Jr., D.O.11/01/2022 1:36 PM Dictation Location: [place] [address] Transcribed By: [facility] 11/01/221335 Dictated By: Jeffry Waterman Jr, DO 11/01/22 1334 Signed By: 11/01/22 133 Normal [facility] XR WRIST RT MIN 3 Von 2021 [...] JANICE WOODS Date: 2022-10-06 22:44 Normal [facility] CBC AUTO DIFFon 10-06-2022 BASO # 0.0 103/ul Normal 0.0-0.1 [facility] Comment on above: Performed By: #### C BC #### [facility] [address] [address] [address] Goran Cortes Basophils/100 WBC (Bld) 0.2 % Normal 0.2-2.0 [facility] Comment on above: Performed By: #### C BC #### [facility] [address] [address] [address] Goran Cortes EO # 0.0 103/ul Normal 0.0-0.7 [facility] Comment on above: Performed By: #### C BC #### [facility] [address] [address] [address] Goran Cortes Eosinophils/100 WBC (Bld) 0.1 % Critically low 0.9-7.0 [facility] Comment on above: Performed By: #### C BC #### [facility] [address] [place] [address] Dr. Goran Cortes Erythrocyte distribution width (RBC) [Ratio] 13.8 % Normal 11.0-15.0 [facility] Comment on above: Performed By: #### C BC #### [facility] [address] [place] [address] Dr. Goran Cortes Hematocrit (Bld) [Volume fraction] 38.4 % Critically low 42.0-54.0 [facility] Comment on above: Performed By: #### C BC #### [facility] [address] [place] [address] Dr. Goran Cortes Hemoglobin (Bld) [Mass/Vol] 12.8 g/dL Critically low 14.0-18.0 [facility] Comment on above: Performed By: #### C BC #### [facility] [address] [place] [address] Dr. Goran Cortes IG # 0.06 10e3/ul Critically high 0.00-0.03 [facility] Comment on above: Performed By: #### C BC #### [facility] [address] [place] [address] Dr. Goran Cortes IG % 0.4 % Normal 0.0-0.5 [facility] Comment on above: Performed By: #### C BC #### [facility] [address] [place] [address] Dr. Goran Cortes LYMPH # 1.7 103/ul Normal 1.2-3.8 [facility] Comment on above: Performed By: #### C BC #### [facility] [address] [place] [address] Dr. Goran Cortes Lymphocytes/100 WBC (Bld) 11.6 % Critically low 20.5-60.0 [facility] Comment on above: Performed By: #### C BC #### [facility] [address] [place] [address] Dr. Goran Cortes MANUAL DIFF REQ NO Normal [facility] Comment on above: Performed By: #### C BC #### [facility] [address] [place] [address] Dr. Goran Cortes MCH (RBC) [Entitic mass] 31.2 pg Normal 25.9-34.0 [facility] Comment on above: Performed By: #### C BC #### [facility] [address] [address] [address] Goran Cortes MCHC (RBC) [Mass/Vol] 33.3 g/dL Normal 29.9-35.2 [facility] Comment on above: Performed By: #### C BC #### [facility] [address] [address] [address] Goran Cortes MCV (RBC) [Entitic vol] 93.7 fL Normal 80.0-94.0 [facility] Comment on above: Performed By: #### C BC #### [facility] [address] [address] [address] Goran Cortes MONO # 0.9 103/ul Critically high 0.3-0.8 [facility] Comment on above: Performed By: #### C BC #### [facility] [address] [address] [address] Goran Cortes Monocytes/100 WBC (Bld) 6.2 % Normal 1.7-12.0 [facility] Comment on above: Performed By: #### C BC #### [facility] [address] [address] [address] Goran Cortes NEUT # 11.9 103/ul Critically high 1.4-6.5 [facility] Comment on above: Performed By: #### C BC #### [facility] [address] [address] [address] Goran Cortes Neutrophils/100 WBC (Bld) 81.5 % Critically high 43.0-75.0 [facility] Comment on above: Performed By: #### C BC #### [facility] [address] [address] [address] Goran Cortes Platelet mean volume (Bld) [Entitic vol] 11.2 fL Normal 9.5-13.5 [facility] Comment on above: Performed By: #### C BC #### [facility] [address] [address] [address] Goran Cortes PLT 212 103/ul Normal 150-450 [facility] Comment on above: Performed By: #### C BC #### [facility] [address] [place], [place] [address] Dr. Goran Cortes RBC 4.10 106/ul Critically low 4.70-6.10 [facility] Comment on above: Performed By: #### C BC #### [facility] [address] [place], [place] [address] Dr. Goran Cortes WBC 14.6 103/ul Critically high 4.0-11.0 [facility] Comment on above: Performed By: #### C BC #### [facility] [address] [place], [place] [address] CSPINE WO CONon CT CSPINE WO CON EXAMINATION: CT CSPI [...] DIOR GANT Date: 2022-10-06 21:39 Normal [facility] CT FACIAL BONES WO CONon CT FACIAL [...] DIOR GANT Date: 2022-10-06 21:32 Normal [facility] CT HEAD WO CONon 10-06-2022 CT HEAD [...] by: Earlene GARCÍA Date: 2022-10-06 21:31 Normal [facility] PROF CHEM 8 (BAS METB)on Anion gap [Moles/Vol] 15.7 mmol/L Normal [facility] Comment on above: Performed By: #### B MP #### [facility] [address] [address] [address] Goran Cortes Calcium [Mass/Vol] 9.5 mg/dL Normal 8.5-10.1 [facility] Comment on above: Performed By: #### B MP #### [facility] [address] [address] [address] Goran Cortes Chloride [Moles/Vol] 101 mmol/L Normal 98-107 [facility] Comment on above: Performed By: #### B MP #### [facility] [address] [address] [address] Goran Cortes CO2 [Moles/Vol] 25.6 mmol/L Normal 21.0-32.0 [facility] Comment on above: Performed By: #### B MP #### [facility] [address] [address] [address] Goran Cortes Creatinine [Mass/Vol] 2.64 mg/dL Critically high 0.70-1.30 [facility] Comment on above: Performed By: #### B MP #### [facility] [address] [address] [address] Goran Cortes EGFR-AF SYRIAN 29 mL/min/1.73m2 Critically low >=60 [facility] Comment on above: Performed By: #### B MP #### [facility] [address] [address] [address] Goran Cortes EGFR-NON AF SYRIAN 24 mL/min/1.73m2 Critically low >=60 [facility] Comment on above: Performed By: #### B MP #### [facility] [address] [address] [address] Goran Cortes Glucose [Mass/Vol] 177 mg/dL Critically high 74-106 [facility] Comment on above: Performed By: #### B MP #### [facility] [address] [address] [address] Goran Cortes Potassium [Moles/Vol] 3.3 mmol/L Critically low 3.5-5.1 [facility] Comment on above: Performed By: #### B MP #### [facility] [address] [place], [place] [address] Dr. Goran Cortes Sodium [Moles/Vol] 139 mmol/L Normal 136-145 [facility] Comment on above: Performed By: #### B MP #### [facility] [address] [place], [place] [address] Dr. Goran Cortes Urea nitrogen [Mass/Vol] 34.0 mg/dL Critically high 7.0-18.0 [facility] Comment on above: Performed By: #### B MP #### [facility] [address] [place], [place] [address] Dr. Goran Cortes Urea nitrogen/Creatinine [Mass ratio] 12.9 mg/mg Normal [facility] Comment on above: Performed By: #### B MP #### [facility] [address] [place], [place] [address] Dr. Goran Cortes Hemoglobin and Hematocrit, B [facility] 10-19-2020 Hematocrit (Bld) [Volume fraction] 23.9 % Low 40.7 - 50.3 % [place], [place] Hemoglobin (Bld) [Mass/Vol] 7.5 g/dL Low 13 - 17 g/dL [place], [place] Interpretation and review of laboratory results Abnormal [place], [place] Hgb/Hcton 10-19-2020 Hematocrit (Bld) [Volume fraction] 23.9 % Low 40.7-50.3 [facility] Comment on above: Performed By: #### H H #### [employer] [address] [place], [place] [id number] Plant Superintendent: David Tate MD Hemoglobin (Bld) [Mass/Vol] 7.5 g/dL Low 13.0-17.0 [facility] Comment on above: Performed By: #### H H #### [facility] [address] [place], [place] [id number] Plant Superintendent: David Tate MD Hemoglobin and Hematocrit, B [facility] 10-16-2020 Hematocrit (Bld) [Volume fraction] 24.6 % Low 40.7 - 50.3 % [place], [place] Hemoglobin (Bld) [Mass/Vol] 7.6 g/dL Low 13 - 17 g/dL [place] Interpretation and review of laboratory results Abnormal [place] Hgb/Hct[place] 10-16-2020 Hematocrit (Bld) [Volume fraction] 24.6 % Low 40.7-50.3 [facility] Comment on above: Performed By: #### H H #### [facility] [employer] [address] [place], [place] [id number] Plant Superintendent: David Tate MD Hemoglobin (Bld) [Mass/Vol] 7.6 g/dL Low 13.0-17.0 [facility] Comment on above: Performed By: #### H H #### [facility] [employer] [address] [place] [address] Plant Superintendent: David Tate MD Hemoglobin and Hematocrit, B loodon 10-13-2020 Hematocrit (Bld) [Volume fraction] 25.5 % Low 40.7 - 50.3 % [place] Hemoglobin (Bld) [Mass/Vol] 8.0 g/dL Low 13 - 17 g/dL [place] Interpretation and review of laboratory results Abnormal [place] Hgb/Hct[place] 10-13-2020 Hematocrit (Bld) [Volume fraction] 25.5 % Low 40.7-50.3 [facility] Comment on above: Performed By: #### H H #### [facility] [address] [place] [address] Plant Superintendent: Harinder Rosales MD Hemoglobin (Bld) [Mass/Vol] 8.0 g/dL Low 13.0-17.0 [facility] Comment on above: Performed By: #### H H #### [facility] [address] [place] [address] Plant Superintendent: Harinder Rosales MD Hemoglobin and Hematocrit, B loodon 10-12-2020 Hematocrit (Bld) [Volume fraction] 24.3 % Low 40.7 - 50.3 % [place] Hemoglobin (Bld) [Mass/Vol] 7.5 g/dL Low 13 - 17 g/dL [place] Interpretation and review of laboratory results Abnormal [place] Hgb/Hct[place] 10-12-2020 Hematocrit (Bld) [Volume fraction] 24.3 % Low 40.7-50.3 [facility] Comment on above: Performed By: #### H H #### [employer] [address] [place] [address] Plant Superintendent: David Tate MD Hemoglobin (Bld) [Mass/Vol] 7.5 g/dL Low 13.0-17.0 [facility] Comment on above: Performed By: #### H H #### [employer] [address] [place] [id number] Plant Superintendent: David Tate MD Hemoglobin and Hematocrit, B loodon 10-11-2020 Hematocrit (Bld) [Volume fraction] 24.2 % Low 40.7 - 50.3 % [place] Hemoglobin (Bld) [Mass/Vol] 7.6 g/dL Low 13 - 17 g/dL [place] Interpretation and review of laboratory results Abnormal [place] Hgb/Hcton 10-11-2020 Hematocrit (Bld) [Volume fraction] 24.2 % Low 40.7-50.3 [facility] Comment on above: Performed By: #### H H #### [employer] [address] [place], [place] [id number] Plant Superintendent: David Tate MD Hemoglobin (Bld) [Mass/Vol] 7.6 g/dL Low 13.0-17.0 [facility] Comment on above: Performed By: #### H H #### [employer] [facility] [place] [address] Plant Superintendent: David Tate MD Hemoglobin and Hematocrit, B loodon 10-10-2020 Hematocrit (Bld) [Volume fraction] 24.0 % Low 40.7 - 50.3 % [place] Hemoglobin (Bld) [Mass/Vol] 7.4 g/dL Low 13 - 17 g/dL [place] Interpretation and review of laboratory results Abnormal [place] Hgb/Hcton 10-10-2020 Hematocrit (Bld) [Volume fraction] 24.0 % Low 40.7-50.3 [facility] Comment on above: Performed By: #### H H #### [facility] [address] [place], [place] [id number] Plant Superintendent: David Tate MD Hemoglobin (Bld) [Mass/Vol] 7.4 g/dL Low 13.0-17.0 [facility] Comment on above: Performed By: #### H H #### [facility] [address] [place], [place] [id number] Plant Superintendent: David Tate MD Basic Metabolic Panelon Anion gap [Moles/Vol] 10 mmol/L 9 - 17 mmol/L [place] Bun/Cre Ratio NOT REPORTED [place], [place] Calcium [Mass/Vol] 7.9 mg/dL Low 8.6 - 10. 4 mg/dL [place] Chloride [Moles/Vol] 104 mmol/L 98 - 10 7 mmol/L [place] CO2 [Moles/Vol] 20 mmol/L 20 - 31 mmol/L [place] Creatinine [Mass/Vol] 2.83 mg/dL High 0.7 - 1.2 mg/dL [place] GFR 27 mL/min Low >60 [place], [place] GFR Non- 22 mL/min Low >60 [place] GFR/1.73 sq M predicted among non-blacks MDRD (S/P/Bld) [Vol rate/Area] NOT REPORTED [place] GFR/1.73 sq M predicted among non-blacks MDRD (S/P/Bld) [Vol rate/Area] [place], [place] Comment on above: Average GFR for 70 o r more years old: 75 mL/min/1.73sq m Chronic Kidney Disease: <60 mL/min/1.73sq m Kidney failure: <15 mL/min/1.73sq m eGFR calculated using average adult body mass. Additional eGFR calculator available at: http://www.[employer]/multiple_crcl_2012.htm Glucose [Mass/Vol] 90 mg/dL 70 - 99 mg/dL [place], [place] Interpretation and review of laboratory results Abnormal [place] Potassium [Moles/Vol] 4.1 mmol/L 3.7 - 5.3 mmol/L [place] Sodium [Moles/Vol] 134 mmol/L Low 135 - 144 mmol/L [place] Urea nitrogen [Mass/Vol] 36 mg/dL High 8 - 23 mg/dL [place] Basic Metabolic Profon 10-09 (cont.) Normal [facility] Comment on above: Result Comment: Aver age GFR for 70 or more years old: 75 mL/min/1.73sq m Chronic Kidney Disease: <60 mL/min/1.73sq m Kidney failure: <15 mL/min/1.73sq m eGFR calculated using average adult body mass. Additional eGFR calculator available at: http://www.[employer]ie/multiple_crcl_2012.htm Performed By: ###Roldan KWON, BMP #### [employer] [address] [place] [address] Plant Superintendent: David Tate MD Anion gap [Moles/Vol] 10 mmol/L Normal 9-17 [facility] Comment on above: Performed By: ###Roldan KWON, BMP #### [employer] [address] [place] [address] Plant Superintendent: David Tate MD Calcium [Mass/Vol] 7.9 mg/dL Low 8.6-10.4 [facility] Comment on above: Performed By: #### C BC, BMP #### [facility] [place] [address] Plant Superintendent: David Tate MD Chloride [Moles/Vol] 104 mmol/L Normal 98-107 [facility] Comment on above: Performed By: #### C BC, BMP #### [facility] [address] [place] [address] Plant Superintendent: David Tate MD CO2 [Moles/Vol] 20 mmol/L Normal 20-31 [facility] Comment on above: Performed By: #### C BC, BMP #### [facility] [address] [place] [address] Plant Superintendent: David Tate MD Creatinine [Mass/Vol] 2.83 mg/dL High 0.70-1.20 [facility] Comment on above: Performed By: #### C BC, BMP #### [facility] [address] [place] [address] Plant Superintendent: David Tate MD GFR, Amer 27 mL/min Low >60 [facility] Comment on above: Performed By: #### C BC, BMP #### [facility] [address] [place] [address] Plant Superintendent: David Tate MD GFR,non Amer 22 mL/min Low >60 [facility] Comment on above: Performed By: #### C BC, BMP #### [facility] [address] [place] [address] Plant Superintendent: David Tate MD Glucose [Mass/Vol] 90 mg/dL Normal 70-99 [facility] Comment on above: Performed By: #### C BC, BMP #### [facility] [address] [place] [address] Plant Superintendent: David Tate MD Potassium [Moles/Vol] 4.1 mmol/L Normal 3.7-5.3 [facility] Comment on above: Performed By: #### C BC, BMP #### [facility] [address] [place] [address] Plant Superintendent: David Tate MD Sodium [Moles/Vol] 134 mmol/L Low 135-144 [facility] Comment on above: Performed By: #### C BC, BMP #### [facility] [address] [place] [address] Plant Superintendent: David Tate MD Urea nitrogen [Mass/Vol] 36 mg/dL High 8-23 [facility] Comment on above: Performed By: #### C BC, BMP #### [facility] [address] [place] [address] Plant Superintendent: David Tate MD BUN/CRE Ratio NOT REPORTED Normal - [facility] Comment on above: Performed By: #### C BC, BMP #### [facility] [address] [place] [address] Plant Superintendent: David Tate MD Staging: NOT REPORTED Normal [facility] Comment on above: Performed By: #### C BC, BMP #### [facility] [address] [place] [address] Plant Superintendent: David Tate MD CBCon 10-09-2020 Erythrocyte distribution width (RBC) [Ratio] 14.6 % High 11.8-14.4 [facility] Comment on above: Performed By: #### C BC, BMP #### [facility] [address] [place] [address] Plant Superintendent: David Tate MD Hematocrit (Bld) [Volume fraction] 24.8 % Low 40.7-50.3 [facility] Comment on above: Performed By: #### C BC, BMP #### [facility] [address] [place] [address] Plant Superintendent: David Tate MD Hemoglobin (Bld) [Mass/Vol] 7.8 g/dL Low 13.0-17.0 [facility] Comment on above: Performed By: #### C CHER, BMP #### [address] [address] Plant Superintendent: David Tate MD MCH (RBC) [Entitic mass] 30.5 pg Normal 25.2-33.5 [facility] Comment on above: Performed By: #### C BC, BMP #### [address] [address] Plant Superintendent: David Tate MD MCHC (RBC) [Mass/Vol] 31.5 g/dL Normal 28.4-34.8 [facility] Comment on above: Performed By: #### C CHER, BMP #### [address] [address] Plant Superintendent: David Tate MD MCV (RBC) [Entitic vol] 96.9 fL Normal 82.6-102.9 [facility] Comment on above: Performed By: #### C CHER, BMP #### [address] [address] Plant Superintendent: David Tate MD NRBC Automated 0.0 per 100 WBC Normal 0.0 [facility] Comment on above: Performed By: #### C CHER, BMP #### [address] [address] Plant Superintendent: David Tate MD Platelet mean volume (Bld) [Entitic vol] 11.1 fL Normal 8.1-13.5 [facility] Comment on above: Performed By: #### C CHER, BMP #### [address] [address] Plant Superintendent: David Tate MD Platelets (Bld) [#/Vol] 348 10*3/uL Normal 138-453 [facility] Comment on above: Performed By: #### C BC, BMP #### [facility] [address] [place], [place] [id number] Plant Superintendent: David Tate MD RBC (Bld) [#/Vol] 2.56 10*6/uL Low 4.21-5.77 [facility] Comment on above: Performed By: #### C BC, BMP #### [facility] [address] [place], [place] [id number] Plant Superintendent: David Tate MD WBC (Bld) [#/Vol] 6.6 10*3/uL Normal 3.5-11.3 [facility] Comment on above: Performed By: #### C BC, BMP #### [facility] [address] [place], [place] [id number] Plant Superintendent: David Tate MD Erythrocyte distribution width (RBC) [Ratio] 14.6 % High 11.8 - 14.4 % [place] Hematocrit (Bld) [Volume fraction] 24.8 % Low 40.7 - 50.3 % [place] Hemoglobin (Bld) [Mass/Vol] 7.8 g/dL Low 13 - 17 g/dL [place] Interpretation and review of laboratory results Abnormal [place] MCH (RBC) [Entitic mass] 30.5 pg 25.2 - 33.5 pg [place] MCHC (RBC) [Mass/Vol] 31.5 g/dL 28.4 - 34.8 g/dL [place] MCV (RBC) [Entitic vol] 96.9 fL 82.6 - 102.9 fL [place] Platelet mean volume (Bld) [Entitic vol] 11.1 fL 8.1 - 13.5 fL [place] Platelets (Bld) [#/Vol] 348 10*3/uL [place] RBC (Bld) [#/Vol] 2.56 10*6/uL Low 4.21 - 5.7 7 m/uL [place] WBC (Bld) [#/Vol] 0.0 10*3/uL 0.0 per 10 0 WBC [place] WBC (Bld) [#/Vol] 6.6 10*3/uL [place] BASIC METABOLIC PANELon 11-2 Calcium [Mass/Vol] 7.4 mg/dL Low 8.6-10.3 [facility] Comment on above: Order Comment: No: D o not add to previous draw Performed By: #### 5 0608 #### [facility] [address] [place] [address], [facility] Chloride [Moles/Vol] 106 mmol/L Normal 98-107 [facility] Comment on above: Order Comment: No: D o not add to previous draw Performed By: #### 5 0608 #### [facility] [address] [place] [address], [place] CO2 [Moles/Vol] 22 mmol/L Normal 21-31 [facility] Comment on above: Order Comment: No: D o not add to previous draw Performed By: #### 5 0608 #### [facility] [address] [place] [address], [place] Creatinine [Mass/Vol] 3.64 mg/dL High 0.70-1.30 [facility] Comment on above: Order Comment: No: D o not add to previous draw Performed By: #### 5 0608 #### [facility] [address] [place] [address], [place] GFR/1.73 sq M predicted among blacks MDRD (S/P/Bld) [Vol rate/Area] 20 ml/min/1.73sq m Abnormal >60 [facility] Comment on above: Order Comment: No: D o not add to previous draw Result Comment: Calc ulation may not be valid for patients over 70 years Performed By: #### 5 0608 #### [facility] [address] [place] [address], [place] GFR/1.73 sq M predicted among non-blacks MDRD (S/P/Bld) [Vol rate/Area] 16 ml/min/1.73sq m Abnormal >60 [facility] Comment on above: Order Comment: No: D o not add to previous draw Result Comment: Calc ulation may not be valid for patients over 70 years Performed By: #### 5 0608 #### [facility] [address] [place] [address], [place] Glucose [Mass/Vol] 87 mg/dL Normal 70-100 [facility] Comment on above: Order Comment: No: D o not add to previous draw Performed By: #### 5 0608 #### [facility] [address] [place] [address], [place] Potassium [Moles/Vol] 4.4 mmol/L Normal 3.5-5.1 [facility] Comment on above: Order Comment: No: D o not add to previous draw Performed By: #### 5 0608 #### [facility] [address] [place] [address], [place] Sodium [Moles/Vol] 134 mmol/L Low 136-145 [facility] Comment on above: Order Comment: No: D o not add to previous draw Performed By: #### 5 0608 #### [facility] [address] [place] [address], [place] Urea nitrogen [Mass/Vol] 32 mg/dL High 7-25 [facility] Comment on above: Order Comment: No: D o not add to previous draw Performed By: #### 5 0608 #### [facility] [address] [place] [address], [place] CBC COMPLETE BLOOD COUNTon 11-26-2019 Erythrocyte distribution width (RBC) [Ratio] 15.3 % High 11.5-15.0 [facility] Comment on above: Order Comment: No: D o not add to previous draw Performed By: #### 1 0008 #### [facility] [address] [place] [address], [place] Hematocrit (Bld) [Volume fraction] 21.9 % Low 39.0-50.0 [facility] Comment on above: Order Comment: No: D o not add to previous draw Performed By: #### 1 0008 #### [facility] [address] [place] [id number], [facility] Hemoglobin (Bld) [Mass/Vol] 7.4 g/dL Low 13.0-17.0 [facility] Comment on above: Order Comment: No: D o not add to previous draw Performed By: #### 1 0008 #### [facility] [address] [place] [address], [facility] MCH (RBC) [Entitic mass] 31.6 pg Normal 27.0-33.0 [facility] Comment on above: Order Comment: No: D o not add to previous draw Performed By: #### 1 0008 #### [facility] [address] [facility] [place] [address], [facility] MCHC (RBC) [Mass/Vol] 33.8 g/dL Normal 32.0-35.0 [facility] Comment on above: Order Comment: No: D o not add to previous draw Performed By: #### 1 0008 #### [facility] [address] [place] [address], [facility] MCV (RBC) [Entitic vol] 93.6 fL Normal 82.0-98.0 [facility] Comment on above: Order Comment: No: D o not add to previous draw Performed By: #### 1 0008 #### [facility] [address] [facility] [place] [address], [facility] Nucleated RBC/100 WBC (Bld) [Ratio] 0 % Normal 0-0 [facility] Comment on above: Order Comment: No: D o not add to previous draw Performed By: #### 1 0008 #### [facility] [address] [place] [address], [facility] PLAT CNT 164 10*3/uL Normal 150-400 [facility] Comment on above: Order Comment: No: D o not add to previous draw Performed By: #### 1 0008 #### [facility] [address] [place] [address], [facility] RBC (Bld) [#/Vol] 2.34 10*6/uL Low 4.20-5.70 [facility] Comment on above: Order Comment: No: D o not add to previous draw Performed By: #### 1 0008 #### [facility] [address] [place] [address], [facility] WBC (Bld) [#/Vol] 3.48 10*3/uL Low 4.00-10.60 [facility] Comment on above: Order Comment: No: D o not add to previous draw Performed By: #### 1 0008 #### [facility] [address] MAGNESIUM BLOODon 09-26-2020 Magnesium [Mass/Vol] 1.6 mg/dL Low 1.9-2.7 [facility] Comment on above: Order Comment: No: D o not add to previous draw Performed By: #### 5 0608 #### [facility] [address] [facility]. [address] BASIC METABOLIC PANELon 09-04 Calcium [Mass/Vol] 8.0 mg/dL Low 8.6-10.3 [facility] Comment on above: Order Comment: No: D o not add to previous draw Performed By: #### 0 0071 ####[facility] [facility] [place] [place] [address], [facility] Chloride [Moles/Vol] 108 mmol/L High 98-107 [facility] Comment on above: Order Comment: No: D o not add to previous draw Performed By: #### 0 0071 ####[facility] [place] [address], [place] CO2 [Moles/Vol] 20 mmol/L Low 21-31 [facility] Comment on above: Order Comment: No: D o not add to previous draw Performed By: #### 0 0071 ####[facility] [place] [address], [place] Creatinine [Mass/Vol] 3.44 mg/dL High 0.70-1.30 [facility] Comment on above: Order Comment: No: D o not add to previous draw Performed By: #### 0 0071 ####[facility] [place] [address], [place] GFR/1.73 sq M predicted among blacks MDRD (S/P/Bld) [Vol rate/Area] 21 ml/min/1.73sq m Abnormal >60 [facility] Comment on above: Order Comment: No: D o not add to previous draw Result Comment: Calc ulation may not be valid for patients over 70 years Performed By: #### 0 0071 ####[facility] [facility] [address], [place] GFR/1.73 sq M predicted among non-blacks MDRD (S/P/Bld) [Vol rate/Area] 18 ml/min/1.73sq m Abnormal >60 [facility] Comment on above: Order Comment: No: D o not add to previous draw Result Comment: Calc ulation may not be valid for patients over 70 years Performed By: #### 0 0071 ####[facility] [place] [address], [place] Glucose [Mass/Vol] 88 mg/dL Normal 70-100 [facility] Comment on above: Order Comment: No: D o not add to previous draw Performed By: #### 0 0071 ####[facility] [place] [address], [place] Potassium [Moles/Vol] 4.1 mmol/L Normal 3.5-5.1 [facility] Comment on above: Order Comment: No: D o not add to previous draw Performed By: #### 0 0071 ####[facility] Sodium [Moles/Vol] 134 mmol/L Low 136-145 [facility] Comment on above: Order Comment: No: D o not add to previous draw Performed By: #### 0 0071 ####[facility] Urea nitrogen [Mass/Vol] 27 mg/dL High 7-25 [facility] Comment on above: Order Comment: No: D o not add to previous draw Performed By: #### 0 0071 ####[facility] CBC COMPLETE BLOOD COUNTon 11-25-2019 Erythrocyte distribution width (RBC) [Ratio] 15.4 % High 11.5-15.0 [facility] Comment on above: Order Comment: The A ptima SARS-CoV-2 assay is a nucleic acid amplification test intended for the qualitative detection of RNA from SARS-CoV-2 isolated and purified from nasopharyngeal (LIFE INSURANCE SPECIALIST),oropharyngeal (OP), nasal swab, sputum, and bronchoalveolar lavage (BAL) specimens from patients with signs and symptoms of infection who are suspected of COVID-19. Results are for the identification of SARS-CoV-2 RNA. The SARS-CoV-2 RNA is generally detectable during the acute phase of infection. The Aptima SARS-CoV-2 Assay on the [employer] system is intended for use by laboratory personnel specifically instructed and trained in the operation of the [employer] system. The Aptima SARS-CoV-2 assay is [...] information. Performed By: #### 3 1792 #### [facility] [address] [place] [address], [facility] Hematocrit (Bld) [Volume fraction] 22.6 % Low 39.0-50.0 [facility] Comment on above: Order Comment: The A ptima SARS-CoV-2 assay is a nucleic acid amplification test intended for the qualitative detection of RNA from SARS-CoV-2 isolated and purified from nasopharyngeal (LIFE INSURANCE SPECIALIST),oropharyngeal (OP), nasal swab, sputum, and bronchoalveolar lavage (BAL) specimens from patients with signs and symptoms of infection who are suspected of COVID-19. Results are for the identification of SARS-CoV-2 RNA. The SARS-CoV-2 RNA is generally detectable during the acute phase of infection. The Aptima SARS-CoV-2 Assay on the [employer] Fusion system is intended for use by laboratory personnel specifically instructed and trained in the operation of the [employer] Fusion system. The Aptima SARS-CoV-2 assay is [...] information. Performed By: #### 3 1792 #### [facility] [address] [place] [address], [facility] Hemoglobin (Bld) [Mass/Vol] 7.5 g/dL Low 13.0-17.0 [facility] Comment on above: Order Comment: The A ptima SARS-CoV-2 assay is a nucleic acid amplification test intended for the qualitative detection of RNA from SARS-CoV-2 isolated and purified from nasopharyngeal (LIFE INSURANCE SPECIALIST),oropharyngeal (OP), nasal swab, sputum, and bronchoalveolar lavage (BAL) specimens from patients with signs and symptoms of infection who are suspected of COVID-19. Results are for the identification of SARS-CoV-2 RNA. The SARS-CoV-2 RNA is generally detectable during the acute phase of infection. The Aptima SARS-CoV-2 Assay on the [employer] system is intended for use by laboratory personnel specifically instructed and trained in the operation of the [employer] system. The Aptima SARS-CoV-2 assay is [...] information. Performed By: #### 3 1792 #### [facility] [address] [facility]. [address] MCH (RBC) [Entitic mass] 30.9 pg Normal 27.0-33.0 [facility] Comment on above: Order Comment: The A ptima SARS-CoV-2 assay is a nucleic acid amplification test intended for the qualitative detection of RNA from SARS-CoV-2 isolated and purified from nasopharyngeal (LIFE INSURANCE SPECIALIST),oropharyngeal (OP), nasal swab, sputum, and bronchoalveolar lavage (BAL) specimens from patients with signs and symptoms of infection who are suspected of COVID-19. Results are for the identification of SARS-CoV-2 RNA. The SARS-CoV-2 RNA is generally detectable during the acute phase of infection. The Aptima SARS-CoV-2 Assay on the [employer] system is intended for use by laboratory personnel specifically instructed and trained in the operation of the [employer] system. The Aptima SARS-CoV-2 assay is [...] information. Performed By: #### 3 1792 #### [facility] [address] [facility] [place] [address], [facility] MCHC (RBC) [Mass/Vol] 33.2 g/dL Normal 32.0-35.0 [facility] Comment on above: Order Comment: The A ptima SARS-CoV-2 assay is a nucleic acid amplification test intended for the qualitative detection of RNA from SARS-CoV-2 isolated and purified from nasopharyngeal (LIFE INSURANCE SPECIALIST),oropharyngeal (OP), nasal swab, sputum, and bronchoalveolar lavage (BAL) specimens from patients with signs and symptoms of infection who are suspected of COVID-19. Results are for the identification of SARS-CoV-2 RNA. The SARS-CoV-2 RNA is generally detectable during the acute phase of infection. The Aptima SARS-CoV-2 Assay on the [employer] system is intended for use by laboratory personnel specifically instructed and trained in the operation of the [employer] Fusion system. The Aptima SARS-CoV-2 assay is [...] information. Performed By: #### 3 1792 #### [facility] [address] [facility] [place] [address], [facility] MCV (RBC) [Entitic vol] 93.0 fL Normal 82.0-98.0 [facility] Comment on above: Order Comment: The A ptima SARS-CoV-2 assay is a nucleic acid amplification test intended for the qualitative detection of RNA from SARS-CoV-2 isolated and purified from nasopharyngeal (LIFE INSURANCE SPECIALIST),oropharyngeal (OP), nasal swab, sputum, and bronchoalveolar lavage (BAL) specimens from patients with signs and symptoms of infection who are suspected of COVID-19. Results are for the identification of SARS-CoV-2 RNA. The SARS-CoV-2 RNA is generally detectable during the acute phase of infection. The Aptima SARS-CoV-2 Assay on the [employer] system is intended for use by laboratory personnel specifically instructed and trained in the operation of the [employer] system. The Aptima SARS-CoV-2 assay is [...] information. Performed By: #### 3 1792 #### [facility] [address] [facility]. [address] Nucleated RBC/100 WBC (Bld) [Ratio] 0 % Normal 0-0 [facility] Comment on above: Order Comment: The A ptima SARS-CoV-2 assay is a nucleic acid amplification test intended for the qualitative detection of RNA from SARS-CoV-2 isolated and purified from nasopharyngeal (LIFE INSURANCE SPECIALIST),oropharyngeal (OP), nasal swab, sputum, and bronchoalveolar lavage (BAL) specimens from patients with signs and symptoms of infection who are suspected of COVID-19. Results are for the identification of SARS-CoV-2 RNA. The SARS-CoV-2 RNA is generally detectable during the acute phase of infection. The Aptima SARS-CoV-2 Assay on the [employer] system is intended for use by laboratory personnel specifically instructed and trained in the operation of the [employer] system. The Aptima SARS-CoV-2 assay is [...] information. Performed By: #### 3 [id number] #### [facility] [address] [facility] [address] PLAT CNT 169 10*3/uL Normal 150-400 [facility] Comment on above: Order Comment: The A ptima SARS-CoV-2 assay is a nucleic acid amplification test intended for the qualitative detection of RNA from SARS-CoV-2 isolated and purified from nasopharyngeal (LIFE INSURANCE SPECIALIST),oropharyngeal (OP), nasal swab, sputum, and bronchoalveolar lavage (BAL) specimens from patients with signs and symptoms of infection who are suspected of COVID-19. Results are for the identification of SARS-CoV-2 RNA. The SARS-CoV-2 RNA is generally detectable during the acute phase of infection. The Aptima SARS-CoV-2 Assay on the [employer] system is intended for use by laboratory personnel specifically instructed and trained in the operation of the [employer] system. The Aptima SARS-CoV-2 assay is [...] information. Performed By: #### 3 1792 #### [facility] [address] RBC (Bld) [#/Vol] 2.43 10*6/uL Low 4.20-5.70 [facility] Comment on above: Order Comment: The A ptima SARS-CoV-2 assay is a nucleic acid amplification test intended for the qualitative detection of RNA from SARS-CoV-2 isolated and purified from nasopharyngeal (LIFE INSURANCE SPECIALIST),oropharyngeal (OP), nasal swab, sputum, and bronchoalveolar lavage (BAL) specimens from patients with signs and symptoms of infection who are suspected of COVID-19. Results are for the identification of SARS-CoV-2 RNA. The SARS-CoV-2 RNA is generally detectable during the acute phase of infection. The Aptima SARS-CoV-2 Assay on the [employer] system is intended for use by laboratory personnel specifically instructed and trained in the operation of the [employer] system. The Aptima SARS-CoV-2 assay is [...] information. Performed By: #### 3 1792 #### [facility] 3000 [facility] [place] [address], [facility] WBC (Bld) [#/Vol] 3.03 10*3/uL Low 4.00-10.60 [facility] Comment on above: Order Comment: The A ptima SARS-CoV-2 assay is a nucleic acid amplification test intended for the qualitative detection of RNA from SARS-CoV-2 isolated and purified from nasopharyngeal (LIFE INSURANCE SPECIALIST),oropharyngeal (OP), nasal swab, sputum, and bronchoalveolar lavage (BAL) specimens from patients with signs and symptoms of infection who are suspected of COVID-19. Results are for the identification of SARS-CoV-2 RNA. The SARS-CoV-2 RNA is generally detectable during the acute phase of infection. The Aptima SARS-CoV-2 Assay on the [employer] system is intended for use by laboratory personnel specifically instructed and trained in the operation of the [employer] system. The Aptima SARS-CoV-2 assay is [...] information. Performed By: #### 3 [id number] #### [facility] [address] [place] [address], [facility] PROTHROMBIN TIMEon 0 INR Coag (PPP) [Relative time] 1.06 {INR} Normal 0.91-1.16 [facility] Comment on above: Order Comment: No: D [...] 1995;[id number]. Performed By: #### 5 [id number] #### [facility] [address] PT Coag (PPP) [Time] 13.8 s Normal 12.3-14.8 [facility] Comment on above: Order Comment: No: D o not add to previous draw Result Comment: ALL RESULTS MUST BE INTERPRETED WITH RESPECT TO BLOOD DRAWING ARTIFACT OR DILUTION ERROR OF ANTICOAGULANT AT THE TIME OF SAMPLING. Performed By: #### 5 [id number] #### [facility] [address] BASIC METABOLIC PANELon 11-2 Calcium [Mass/Vol] 7.9 mg/dL Low 8.6-10.3 [facility] Comment on above: Order Comment: No: D o not add to previous draw Performed By: #### 5 0608 #### [facility] [address] [place] [address], [place] Chloride [Moles/Vol] 109 mmol/L High 98-107 [facility] Comment on above: Order Comment: No: D o not add to previous draw Performed By: #### 5 0608 #### [facility] [address] [place] [address], [place] CO2 [Moles/Vol] 21 mmol/L Normal 21-31 [facility] Comment on above: Order Comment: No: D o not add to previous draw Performed By: #### 5 0608 #### [facility] [address] [place] [address], [place] Creatinine [Mass/Vol] 3.69 mg/dL High 0.70-1.30 [facility] Comment on above: Order Comment: No: D o not add to previous draw Performed By: #### 5 [id number] #### [facility] [address] [place] [address], [place] GFR/1.73 sq M predicted among blacks MDRD (S/P/Bld) [Vol rate/Area] 20 ml/min/1.73sq m Abnormal >60 [facility] Comment on above: Order Comment: No: D o not add to previous draw Result Comment: Calc ulation may not be valid for patients over 70 years Performed By: #### 5 [id number] #### [facility] [address] [place] [address], [place] GFR/1.73 sq M predicted among non-blacks MDRD (S/P/Bld) [Vol rate/Area] 16 ml/min/1.73sq m Abnormal >60 [facility] Comment on above: Order Comment: No: D o not add to previous draw Result Comment: Calc ulation may not be valid for patients over 70 years Performed By: #### 5 [id number] #### [facility] [address] [place] [address], [place] Glucose [Mass/Vol] 82 mg/dL Normal 70-100 [facility] Comment on above: Order Comment: No: D o not add to previous draw Performed By: #### 5 0608 #### [facility] [address] [place] [address], [facility] Potassium [Moles/Vol] 4.1 mmol/L Normal 3.5-5.1 [facility] Comment on above: Order Comment: No: D o not add to previous draw Performed By: #### 5 0608 #### [facility] [address] [place] [address], [facility] Sodium [Moles/Vol] 136 mmol/L Normal 136-145 [facility] Comment on above: Order Comment: No: D o not add to previous draw Performed By: #### 5 [id number] #### [facility] [address] [place] [address], [facility] Urea nitrogen [Mass/Vol] 32 mg/dL High 7-25 [facility] Comment on above: Order Comment: No: D o not add to previous draw Performed By: #### 5 [id number] #### [facility] [address] CBC COMPLETE BLOOD COUNTon 11-24-2019 Erythrocyte distribution width (RBC) [Ratio] 15.9 % High 11.5-15.0 [facility] Comment on above: Order Comment: The A ptima SARS-CoV-2 assay is a nucleic acid amplification test intended for the qualitative detection of RNA from SARS-CoV-2 isolated and purified from nasopharyngeal (LIFE INSURANCE SPECIALIST),oropharyngeal (OP), nasal swab, sputum, and bronchoalveolar lavage (BAL) specimens from patients with signs and symptoms of infection who are suspected of COVID-19. Results are for the identification of SARS-CoV-2 RNA. The SARS-CoV-2 RNA is generally detectable during the acute phase of infection. The Aptima SARS-CoV-2 Assay on the [employer] system is intended for use by laboratory personnel specifically instructed and trained in the operation of the [employer] system. The Aptima SARS-CoV-2 assay is [...] information. Performed By: #### 3 1792 #### [facility] [address] [place] [address], [facility] Hematocrit (Bld) [Volume fraction] 24.7 % Low 39.0-50.0 [facility] Comment on above: Order Comment: The A ptima SARS-CoV-2 assay is a nucleic acid amplification test intended for the qualitative detection of RNA from SARS-CoV-2 isolated and purified from nasopharyngeal (LIFE INSURANCE SPECIALIST),oropharyngeal (OP), nasal swab, sputum, and bronchoalveolar lavage (BAL) specimens from patients with signs and symptoms of infection who are suspected of COVID-19. Results are for the identification of SARS-CoV-2 RNA. The SARS-CoV-2 RNA is generally detectable during the acute phase of infection. The Aptima SARS-CoV-2 Assay on the [employer] system is intended for use by laboratory personnel specifically instructed and trained in the operation of the [employer] system. The Aptima SARS-CoV-2 assay is [...] information. Performed By: #### 3 1792 #### [facility] [address] [place] [address], [facility] Hemoglobin (Bld) [Mass/Vol] 8.2 g/dL Low 13.0-17.0 [facility] Comment on above: Order Comment: The A ptima SARS-CoV-2 assay is a nucleic acid amplification test intended for the qualitative detection of RNA from SARS-CoV-2 isolated and purified from nasopharyngeal (LIFE INSURANCE SPECIALIST),oropharyngeal (OP), nasal swab, sputum, and bronchoalveolar lavage (BAL) specimens from patients with signs and symptoms of infection who are suspected of COVID-19. Results are for the identification of SARS-CoV-2 RNA. The SARS-CoV-2 RNA is generally detectable during the acute phase of infection. The Aptima SARS-CoV-2 Assay on the [employer] system is intended for use by laboratory personnel specifically instructed and trained in the operation of the [employer] system. The Aptima SARS-CoV-2 assay is [...] information. Performed By: #### 3 1792 #### [facility] [address] MCH (RBC) [Entitic mass] 31.2 pg Normal 27.0-33.0 [facility] Comment on above: Order Comment: The A ptima SARS-CoV-2 assay is a nucleic acid amplification test intended for the qualitative detection of RNA from SARS-CoV-2 isolated and purified from nasopharyngeal (LIFE INSURANCE SPECIALIST),oropharyngeal (OP), nasal swab, sputum, and bronchoalveolar lavage (BAL) specimens from patients with signs and symptoms of infection who are suspected of COVID-19. Results are for the identification of SARS-CoV-2 RNA. The SARS-CoV-2 RNA is generally detectable during the acute phase of infection. The Aptima SARS-CoV-2 Assay on the [employer] system is intended for use by laboratory personnel specifically instructed and trained in the operation of the [employer] system. The Aptima SARS-CoV-2 assay is [...] information. Performed By: #### 3 1792 #### [facility] 3000 [facility] [place] [address], [facility] MCHC (RBC) [Mass/Vol] 33.2 g/dL Normal 32.0-35.0 [facility] Comment on above: Order Comment: The A ptima SARS-CoV-2 assay is a nucleic acid amplification test intended for the qualitative detection of RNA from SARS-CoV-2 isolated and purified from nasopharyngeal (LIFE INSURANCE SPECIALIST),oropharyngeal (OP), nasal swab, sputum, and bronchoalveolar lavage (BAL) specimens from patients with signs and symptoms of infection who are suspected of COVID-19. Results are for the identification of SARS-CoV-2 RNA. The SARS-CoV-2 RNA is generally detectable during the acute phase of infection. The Aptima SARS-CoV-2 Assay on the [employer] system is intended for use by laboratory personnel specifically instructed and trained in the operation of the [employer] system. The Aptima SARS-CoV-2 assay is [...] information. Performed By: #### 3 1792 #### [facility] [address] [facility] [place] [address], [facility] MCV (RBC) [Entitic vol] 93.9 fL Normal 82.0-98.0 [facility] Comment on above: Order Comment: The A ptima SARS-CoV-2 assay is a nucleic acid amplification test intended for the qualitative detection of RNA from SARS-CoV-2 isolated and purified from nasopharyngeal (LIFE INSURANCE SPECIALIST),oropharyngeal (OP), nasal swab, sputum, and bronchoalveolar lavage (BAL) specimens from patients with signs and symptoms of infection who are suspected of COVID-19. Results are for the identification of SARS-CoV-2 RNA. The SARS-CoV-2 RNA is generally detectable during the acute phase of infection. The Aptima SARS-CoV-2 Assay on the [employer] system is intended for use by laboratory personnel specifically instructed and trained in the operation of the [employer] system. The Aptima SARS-CoV-2 assay is [...] information. Performed By: #### 3 1792 #### [address] Nucleated RBC/100 WBC (Bld) [Ratio] 0 % Normal 0-0 [facility] Comment on above: Order Comment: The A ptima SARS-CoV-2 assay is a nucleic acid amplification test intended for the qualitative detection of RNA from SARS-CoV-2 isolated and purified from nasopharyngeal (LIFE INSURANCE SPECIALIST),oropharyngeal (OP), nasal swab, sputum, and bronchoalveolar lavage (BAL) specimens from patients with signs and symptoms of infection who are suspected of COVID-19. Results are for the identification of SARS-CoV-2 RNA. The SARS-CoV-2 RNA is generally detectable during the acute phase of infection. The Aptima SARS-CoV-2 Assay on the [employer] system is intended for use by laboratory personnel specifically instructed and trained in the operation of the [employer] system. The Aptima SARS-CoV-2 assay is [...] information. Performed By: #### 3 1792 #### [facility] 3000 [facility]. [address] PLAT CNT 176 10*3/uL Normal 150-400 [facility] Comment on above: Order Comment: The A ptima SARS-CoV-2 assay is a nucleic acid amplification test intended for the qualitative detection of RNA from SARS-CoV-2 isolated and purified from nasopharyngeal (LIFE INSURANCE SPECIALIST),oropharyngeal (OP), nasal swab, sputum, and bronchoalveolar lavage (BAL) specimens from patients with signs and symptoms of infection who are suspected of COVID-19. Results are for the identification of SARS-CoV-2 RNA. The SARS-CoV-2 RNA is generally detectable during the acute phase of infection. The Aptima SARS-CoV-2 Assay on the [employer] system is intended for use by laboratory personnel specifically instructed and trained in the operation of the [employer] system. The Aptima SARS-CoV-2 assay is [...] information. Performed By: #### 3 1792 #### [facility] 3000 [facility]. [address] RBC (Bld) [#/Vol] 2.63 10*6/uL Low 4.20-5.70 [facility] Comment on above: Order Comment: The A ptima SARS-CoV-2 assay is a nucleic acid amplification test intended for the qualitative detection of RNA from SARS-CoV-2 isolated and purified from nasopharyngeal (LIFE INSURANCE SPECIALIST),oropharyngeal (OP), nasal swab, sputum, and bronchoalveolar lavage (BAL) specimens from patients with signs and symptoms of infection who are suspected of COVID-19. Results are for the identification of SARS-CoV-2 RNA. The SARS-CoV-2 RNA is generally detectable during the acute phase of infection. The Aptima SARS-CoV-2 Assay on the [employer] system is intended for use by laboratory personnel specifically instructed and trained in the operation of the [employer] system. The Aptima SARS-CoV-2 assay is [...] information. Performed By: #### 3 1792 #### [facility] 3000 [facility]. [address] WBC (Bld) [#/Vol] 4.12 10*3/uL Normal 4.00-10.60 [facility] Comment on above: Order Comment: The A ptima SARS-CoV-2 assay is a nucleic acid amplification test intended for the qualitative detection of RNA from SARS-CoV-2 isolated and purified from nasopharyngeal (LIFE INSURANCE SPECIALIST),oropharyngeal (OP), nasal swab, sputum, and bronchoalveolar lavage (BAL) specimens from patients with signs and symptoms of infection who are suspected of COVID-19. Results are for the identification of SARS-CoV-2 RNA. The SARS-CoV-2 RNA is generally detectable during the acute phase of infection. The Aptima SARS-CoV-2 Assay on the [employer] system is intended for use by laboratory personnel specifically instructed and trained in the operation of the [employer] system. The Aptima SARS-CoV-2 assay is [...] information. Performed By: #### 3 1792 #### [facility] [address] *SARS-CoV-2 COVID-19on 09-23 [id number] Not Detected Normal Not Detected [facility] Comment on above: Order Comment: The A ptima SARS-CoV-2 assay is a nucleic acid amplification testintended for the qualitative detection of RNA from SARS-CoV-2 isolatedand purified from nasopharyngeal (LIFE INSURANCE SPECIALIST),oropharyngeal (OP), nasal swab,sputum, and bronchoalveolar lavage (BAL) specimens from patients withsigns and symptoms of infection who are suspected of COVID-19.Results are for the identification of SARS-CoV-2 RNA. The SARS-CoV-2 RNAis generally detectable during the acute phase of infection.The Aptima SARS-CoV-2 Assay on the [employer] system isintended for use by laboratory personnel specifically instructed andtrained in the operation of the [employer] system. TheAptima SARS-CoV-2 assay is only [...] information. Performed By: #### 1 0008 #### [facility] 3000 [facility] [address] BASIC METABOLIC PANELon 11-2 Calcium [Mass/Vol] 7.7 mg/dL Low 8.6-10.3 [facility] Comment on above: Order Comment: No: D o not add to previous draw Performed By: #### 5 [id number] #### [facility] 3000 [facility] [address], [facility] Chloride [Moles/Vol] 109 mmol/L High 98-107 [facility] Comment on above: Order Comment: No: D o not add to previous draw Performed By: #### 5 6101 #### [facility] [address] [place] [address], [place] CO2 [Moles/Vol] 20 mmol/L Low 21-31 [facility] Comment on above: Order Comment: No: D o not add to previous draw Performed By: #### 5 6101 #### [facility] [address] [place] [address], [place] Creatinine [Mass/Vol] 3.95 mg/dL High 0.70-1.30 [facility] Comment on above: Order Comment: No: D o not add to previous draw Performed By: #### 5 6101 #### [facility] [address] [place] [address], [place] GFR/1.73 sq M predicted among blacks MDRD (S/P/Bld) [Vol rate/Area] 18 ml/min/1.73sq m Abnormal >60 [facility] Comment on above: Order Comment: No: D o not add to previous draw Result Comment: Calc ulation may not be valid for patients over 70 years Performed By: #### 5 [id number] #### [facility] [address] [place] [address], [place] GFR/1.73 sq M predicted among non-blacks MDRD (S/P/Bld) [Vol rate/Area] 15 ml/min/1.73sq m Abnormal >60 [facility] Comment on above: Order Comment: No: D o not add to previous draw Result Comment: Calc ulation may not be valid for patients over 70 years Performed By: #### 5 [id number] #### [facility] [address] [place] [address], [place] Glucose [Mass/Vol] 86 mg/dL Normal 70-100 [facility] Comment on above: Order Comment: No: D o not add to previous draw Performed By: #### 5 6101 #### [facility] [address] [place] [address], [facility] Potassium [Moles/Vol] 4.0 mmol/L Normal 3.5-5.1 [facility] Comment on above: Order Comment: No: D o not add to previous draw Performed By: #### 5 6101 #### [facility] [address] [place] [address], [place] Sodium [Moles/Vol] 135 mmol/L Low 136-145 [facility] Comment on above: Order Comment: No: D o not add to previous draw Performed By: #### 5 6101 #### [facility] [address] [place] [address], [facility] Urea nitrogen [Mass/Vol] 35 mg/dL High 7-25 [facility] Comment on above: Order Comment: No: D o not add to previous draw Performed By: #### 5 [id number] #### [facility] [address] [place] [address], [facility] CBC COMPLETE BLOOD COUNTon 11-22-2019 Erythrocyte distribution width (RBC) [Ratio] 16.3 % High 11.5-15.0 [facility] Comment on above: Order Comment: No: D o not add to previous draw Performed By: #### 3 0478 #### [facility] [address] [place] [address], [facility] Hematocrit (Bld) [Volume fraction] 23.3 % Low 39.0-50.0 [facility] Comment on above: Order Comment: No: D o not add to previous draw Performed By: #### 3 0478 #### [facility] [address] [place] [address], [facility] Hemoglobin (Bld) [Mass/Vol] 7.5 g/dL Low 13.0-17.0 [facility] Comment on above: Order Comment: No: D o not add to previous draw Performed By: #### 3 0478 #### [facility] [address] [place] [id number], [facility] MCH (RBC) [Entitic mass] 30.2 pg Normal 27.0-33.0 [facility] Comment on above: Order Comment: No: D o not add to previous draw Performed By: #### 3 0478 #### [facility] [address] [place] [address], [facility] MCHC (RBC) [Mass/Vol] 32.2 g/dL Normal 32.0-35.0 [facility] Comment on above: Order Comment: No: D o not add to previous draw Performed By: #### 3 0478 #### [facility] [address] [place] [id number], [facility] MCV (RBC) [Entitic vol] 94.0 fL Normal 82.0-98.0 [facility] Comment on above: Order Comment: No: D o not add to previous draw Performed By: #### 3 0478 #### [facility] [address] [place] [id number], [facility] Nucleated RBC/100 WBC (Bld) [Ratio] 0 % Normal 0-0 [facility] Comment on above: Order Comment: No: D o not add to previous draw Performed By: #### 3 0478 #### [facility] [address] [place] [address], [facility] PLAT CNT 156 10*3/uL Normal 150-400 [facility] Comment on above: Order Comment: No: D o not add to previous draw Performed By: #### 3 0478 #### [facility] [address] [place] [address], [facility] RBC (Bld) [#/Vol] 2.48 10*6/uL Low 4.20-5.70 [facility] Comment on above: Order Comment: No: D o not add to previous draw Performed By: #### 3 0478 #### [facility] [address] [place] [address], [facility] WBC (Bld) [#/Vol] 4.20 10*3/uL Normal 4.00-10.60 [facility] Comment on above: Order Comment: No: D o not add to previous draw Performed By: #### 3 0478 #### [facility] [address] [place] [address], [facility] MAGNESIUM BLOODon 09-22-2020 Magnesium [Mass/Vol] 1.2 mg/dL Low 1.9-2.7 [facility] Comment on above: Order Comment: No: D o not add to previous draw Performed By: #### 5 [id number] #### [facility] [address] [place] [address], [facility] PHOSPHORUS BLOODon 0 Phosphate [Mass/Vol] 2.6 mg/dL Normal 2.5-5.0 [facility] Comment on above: Order Comment: No: D o not add to previous draw Performed By: #### 5 [id number] #### [facility] [address] [place] [address], [facility] BASIC METABOLIC PANELon 09-03 Calcium [Mass/Vol] 7.9 mg/dL Low 8.6-10.3 [facility] Comment on above: Order Comment: No: D o not add to previous draw Performed By: #### 5 [id number] #### [facility] [address] [place] [id number], [facility] Chloride [Moles/Vol] 110 mmol/L High 98-107 [facility] Comment on above: Order Comment: No: D o not add to previous draw Performed By: #### 5 [id number] #### [facility] [address] [place] [id number], [facility] CO2 [Moles/Vol] 21 mmol/L Normal 21-31 [facility] Comment on above: Order Comment: No: D o not add to previous draw Performed By: #### 5 [id number] #### [facility] [address] [place] [address], [facility] Creatinine [Mass/Vol] 3.98 mg/dL High 0.70-1.30 [facility] Comment on above: Order Comment: No: D o not add to previous draw Performed By: #### 5 [id number] #### [facility] [address] [place] [address], [place] GFR/1.73 sq M predicted among blacks MDRD (S/P/Bld) [Vol rate/Area] 18 ml/min/1.73sq m Abnormal >60 [facility] Comment on above: Order Comment: No: D o not add to previous draw Result Comment: Calc ulation may not be valid for patients over 70 years Performed By: #### 5 [id number] #### [facility] [address] [place] [address], [facility] GFR/1.73 sq M predicted among non-blacks MDRD (S/P/Bld) [Vol rate/Area] 15 ml/min/1.73sq m Abnormal >60 [facility] Comment on above: Order Comment: No: D o not add to previous draw Result Comment: Calc ulation may not be valid for patients over 70 years Performed By: #### 5 [id number] #### [facility] [address] [place] [address], [place] Glucose [Mass/Vol] 85 mg/dL Normal 70-100 [facility] Comment on above: Order Comment: No: D o not add to previous draw Performed By: #### 5 [id number] #### [facility] [address] [place] [address], [place] Potassium [Moles/Vol] 4.1 mmol/L Normal 3.5-5.1 [facility] Comment on above: Order Comment: No: D o not add to previous draw Performed By: #### 5 [id number] #### [facility] [address] [place] [address], [place] Sodium [Moles/Vol] 137 mmol/L Normal 136-145 [facility] Comment on above: Order Comment: No: D o not add to previous draw Performed By: #### 5 [id number] #### [facility] [address] Urea nitrogen [Mass/Vol] 33 mg/dL High 7-25 [facility] Comment on above: Order Comment: No: D o not add to previous draw Performed By: #### 5 [id number] #### [facility] 3000 [facility]. [address] CBC COMPLETE BLOOD COUNTon 11-21-2019 Erythrocyte distribution width (RBC) [Ratio] 15.0 % Normal 11.5-15.0 [facility] Comment on above: Order Comment: The A ptima SARS-CoV-2 assay is a nucleic acid amplification test intended for the qualitative detection of RNA from SARS-CoV-2 isolated and purified from nasopharyngeal (LIFE INSURANCE SPECIALIST),oropharyngeal (OP), nasal swab, sputum, and bronchoalveolar lavage (BAL) specimens from patients with signs and symptoms of infection who are suspected of COVID-19. Results are for the identification of SARS-CoV-2 RNA. The SARS-CoV-2 RNA is generally detectable during the acute phase of infection. The Aptima SARS-CoV-2 Assay on the [employer] system is intended for use by laboratory personnel specifically instructed and trained in the operation of the [employer] system. The Aptima SARS-CoV-2 assay is [...] information. Performed By: #### 3 [id number] #### [facility] [address] [place] [address], [facility] Hematocrit (Bld) [Volume fraction] 20.8 % Low 39.0-50.0 [facility] Comment on above: Order Comment: The A ptima SARS-CoV-2 assay is a nucleic acid amplification test intended for the qualitative detection of RNA from SARS-CoV-2 isolated and purified from nasopharyngeal (LIFE INSURANCE SPECIALIST),oropharyngeal (OP), nasal swab, sputum, and bronchoalveolar lavage (BAL) specimens from patients with signs and symptoms of infection who are suspected of COVID-19. Results are for the identification of SARS-CoV-2 RNA. The SARS-CoV-2 RNA is generally detectable during the acute phase of infection. The Aptima SARS-CoV-2 Assay on the [employer] system is intended for use by laboratory personnel specifically instructed and trained in the operation of the [employer] system. The Aptima SARS-CoV-2 assay is [...] information. Performed By: #### 3 1792 #### [address] Hemoglobin (Bld) [Mass/Vol] 6.8 g/dL Low 13.0-17.0 [facility] Comment on above: Order Comment: The A ptima SARS-CoV-2 assay is a nucleic acid amplification test intended for the qualitative detection of RNA from SARS-CoV-2 isolated and purified from nasopharyngeal (LIFE INSURANCE SPECIALIST),oropharyngeal (OP), nasal swab, sputum, and bronchoalveolar lavage (BAL) specimens from patients with signs and symptoms of infection who are suspected of COVID-19. Results are for the identification of SARS-CoV-2 RNA. The SARS-CoV-2 RNA is generally detectable during the acute phase of infection. The Aptima SARS-CoV-2 Assay on the [employer] system is intended for use by laboratory personnel specifically instructed and trained in the operation of the [employer] system. The Aptima SARS-CoV-2 assay is [...] information. Performed By: #### 3 [id number] #### [facility] [address] [place] [address], [facility] MCH (RBC) [Entitic mass] 31.2 pg Normal 27.0-33.0 [facility] Comment on above: Order Comment: The A ptima SARS-CoV-2 assay is a nucleic acid amplification test intended for the qualitative detection of RNA from SARS-CoV-2 isolated and purified from nasopharyngeal (LIFE INSURANCE SPECIALIST),oropharyngeal (OP), nasal swab, sputum, and bronchoalveolar lavage (BAL) specimens from patients with signs and symptoms of infection who are suspected of COVID-19. Results are for the identification of SARS-CoV-2 RNA. The SARS-CoV-2 RNA is generally detectable during the acute phase of infection. The Aptima SARS-CoV-2 Assay on the [employer] and [employer] system is intended for use by laboratory personnel specifically instructed and trained in the operation of the [employer] system. The Aptima SARS-CoV-2 assay is [...] and epidemiological information. Performed By: #### 3 0792 #### [facility] [address] MCHC (RBC) [Mass/Vol] 32.7 g/dL Normal 32.0-35.0 [facility] Comment on above: Order Comment: The A ptima SARS-CoV-2 assay is a nucleic acid amplification test intended for the qualitative detection of RNA from SARS-CoV-2 isolated and purified from nasopharyngeal (LIFE INSURANCE SPECIALIST),oropharyngeal (OP), nasal swab, sputum, and bronchoalveolar lavage (BAL) specimens from patients with signs and symptoms of infection who are suspected of COVID-19. Results are for the identification of SARS-CoV-2 RNA. The SARS-CoV-2 RNA is generally detectable during the acute phase of infection. The Aptima SARS-CoV-2 Assay on the [employer] system is intended for use by laboratory personnel specifically instructed and trained in the operation of the [employer] system. The Aptima SARS-CoV-2 assay is [...] information. Performed By: #### 3 1792 #### [address] MCV (RBC) [Entitic vol] 95.4 fL Normal 82.0-98.0 [facility] Comment on above: Order Comment: The A ptima SARS-CoV-2 assay is a nucleic acid amplification test intended for the qualitative detection of RNA from SARS-CoV-2 isolated and purified from nasopharyngeal (LIFE INSURANCE SPECIALIST),oropharyngeal (OP), nasal swab, sputum, and bronchoalveolar lavage (BAL) specimens from patients with signs and symptoms of infection who are suspected of COVID-19. Results are for the identification of SARS-CoV-2 RNA. The SARS-CoV-2 RNA is generally detectable during the acute phase of infection. The Aptima SARS-CoV-2 Assay on the [employer] system is intended for use by laboratory personnel specifically instructed and trained in the operation of the [employer] system. The Aptima SARS-CoV-2 assay is [...] information. Performed By: #### 3 [id number] #### [facility] 3000 [facility]. [address] Nucleated RBC/100 WBC (Bld) [Ratio] 0 % Normal 0-0 [facility] Comment on above: Order Comment: The A ptima SARS-CoV-2 assay is a nucleic acid amplification test intended for the qualitative detection of RNA from SARS-CoV-2 isolated and purified from nasopharyngeal (LIFE INSURANCE SPECIALIST),oropharyngeal (OP), nasal swab, sputum, and bronchoalveolar lavage (BAL) specimens from patients with signs and symptoms of infection who are suspected of COVID-19. Results are for the identification of SARS-CoV-2 RNA. The SARS-CoV-2 RNA is generally detectable during the acute phase of infection. The Aptima SARS-CoV-2 Assay on the [employer] system is intended for use by laboratory personnel specifically instructed and trained in the operation of the [employer] system. The Aptima SARS-CoV-2 assay is [...] information. Performed By: #### 3 [id number] #### [facility] [address] [facility] [place] [address], [facility] PLAT CNT 157 10*3/uL Normal 150-400 [facility] Comment on above: Order Comment: The A ptima SARS-CoV-2 assay is a nucleic acid amplification test intended for the qualitative detection of RNA from SARS-CoV-2 isolated and purified from nasopharyngeal (LIFE INSURANCE SPECIALIST),oropharyngeal (OP), nasal swab, sputum, and bronchoalveolar lavage (BAL) specimens from patients with signs and symptoms of infection who are suspected of COVID-19. Results are for the identification of SARS-CoV-2 RNA. The SARS-CoV-2 RNA is generally detectable during the acute phase of infection. The Aptima SARS-CoV-2 Assay on the [employer] system is intended for use by laboratory personnel specifically instructed and trained in the operation of the [employer] system. The Aptima SARS-CoV-2 assay is [...] information. Performed By: #### 3 1792 #### [address] RBC (Bld) [#/Vol] 2.18 10*6/uL Low 4.20-5.70 [facility] Comment on above: Order Comment: The A ptima SARS-CoV-2 assay is a nucleic acid amplification test intended for the qualitative detection of RNA from SARS-CoV-2 isolated and purified from nasopharyngeal (LIFE INSURANCE SPECIALIST),oropharyngeal (OP), nasal swab, sputum, and bronchoalveolar lavage (BAL) specimens from patients with signs and symptoms of infection who are suspected of COVID-19. Results are for the identification of SARS-CoV-2 RNA. The SARS-CoV-2 RNA is generally detectable during the acute phase of infection. The Aptima SARS-CoV-2 Assay on the [employer] system is intended for use by laboratory personnel specifically instructed and trained in the operation of the [employer] system. The Aptima SARS-CoV-2 assay is [...] information. Performed By: #### 3 [id number] #### [facility] 3000 [facility]. [address] WBC (Bld) [#/Vol] 3.58 10*3/uL Low 4.00-10.60 [facility] Comment on above: Order Comment: The A ptima SARS-CoV-2 assay is a nucleic acid amplification test intended for the qualitative detection of RNA from SARS-CoV-2 isolated and purified from nasopharyngeal (LIFE INSURANCE SPECIALIST),oropharyngeal (OP), nasal swab, sputum, and bronchoalveolar lavage (BAL) specimens from patients with signs and symptoms of infection who are suspected of COVID-19. Results are for the identification of SARS-CoV-2 RNA. The SARS-CoV-2 RNA is generally detectable during the acute phase of infection. The Aptima SARS-CoV-2 Assay on the [employer] Fusion system is intended for use by laboratory personnel specifically instructed and trained in the operation of the [employer] system. The Aptima SARS-CoV-2 assay is [...] information. Performed By: #### 3 1792 #### [facility] 3000 [facility] [place] [address], [facility] HEMATOCRITon 09-21-2020 Hematocrit (Bld) [Volume fraction] 24.2 % Low 39.0-50.0 [facility] Comment on above: Order Comment: The A ptima SARS-CoV-2 assay is a nucleic acid amplification test intended for the qualitative detection of RNA from SARS-CoV-2 isolated and purified from nasopharyngeal (LIFE INSURANCE SPECIALIST),oropharyngeal (OP), nasal swab, sputum, and bronchoalveolar lavage (BAL) specimens from patients with signs and symptoms of infection who are suspected of COVID-19. Results are for the identification of SARS-CoV-2 RNA. The SARS-CoV-2 RNA is generally detectable during the acute phase of infection. The Aptima SARS-CoV-2 Assay on the [employer] system is intended for use by laboratory personnel specifically instructed and trained in the operation of the [employer] system. The Aptima SARS-CoV-2 assay is [...] information. Performed By: #### 3 1792 #### [address] HEMOGLOBINon 09-21-2020 Hemoglobin (Bld) [Mass/Vol] 7.8 g/dL Low 13.0-17.0 [facility] Comment on above: Order Comment: The A ptima SARS-CoV-2 assay is a nucleic acid amplification test intended for the qualitative detection of RNA from SARS-CoV-2 isolated and purified from nasopharyngeal (LIFE INSURANCE SPECIALIST),oropharyngeal (OP), nasal swab, sputum, and bronchoalveolar lavage (BAL) specimens from patients with signs and symptoms of infection who are suspected of COVID-19. Results are for the identification of SARS-CoV-2 RNA. The SARS-CoV-2 RNA is generally detectable during the acute phase of infection. The Aptima SARS-CoV-2 Assay on the [employer] system is intended for use by laboratory personnel specifically instructed and trained in the operation of the [employer] system. The Aptima SARS-CoV-2 assay is [...] information. Performed By: #### 3 1792 #### [facility] 3000 [facility]. [address] PROTHROMBIN TIMEon 09-21-202 0 INR Coag (PPP) [Relative time] 1.09 {INR} Normal 0.91-1.16 [facility] Comment on above: Order Comment: No: D [...] 1995;[id number]. Performed By: #### 5 6101 #### [facility] 3000 [facility] [address] PT Coag (PPP) [Time] 14.1 s Normal 12.3-14.8 [facility] Comment on above: Order Comment: No: D o not add to previous draw Result Comment: ALL RESULTS MUST BE INTERPRETED WITH RESPECT TO BLOOD DRAWING ARTIFACT OR DILUTION ERROR OF ANTICOAGULANT AT THE TIME OF SAMPLING. Performed By: #### 5 6101 #### [facility] [address] [place] [address], [facility] RBC'S 1 UNITon 11-19-2020 CROSSMATCH INTERP 1 COMP Normal [facility] Comment on above: Order Comment: [place] nephrosis, please assess for hydronephrosis resolution Performed By: #### 8 6001 ####[facility] [place] [address], [facility] PRODUCT CODE 1 [id number] Normal [facility] Comment on above: Order Comment: [place] nephrosis, please assess for hydronephrosis resolution Performed By: #### 8 6001 ####[facility] [place] [address], [facility] PRODUCT STATUS 1 PT Normal [facility] Comment on above: Order Comment: [place] nephrosis, please assess for hydronephrosis resolution Result Comment: Resu lt changed by IF on 09/21/2020 11:17. The previous value was XM. Result changed by IF on 09/22/2020 00:30. The previous value was IS. Performed By: #### 8 6001 ####[facility] [place] [address], [place] UNIT ABO 1 A Normal [facility] Comment on above: Order Comment: [place] nephrosis, please assess for hydronephrosis resolution Performed By: #### 8 6001 ####[facility] [place] [address], [place] UNIT ID 1 [id number] Normal [facility] Comment on above: Order Comment: [place] nephrosis, please assess for hydronephrosis resolution Performed By: #### 8 6001 ####[facility] [place] [address], [place] UNIT RH 1 Positive Normal [facility] Comment on above: Order Comment: [place] nephrosis, please assess for hydronephrosis resolution Performed By: #### 8 6001 ####[facility] [place] [address], [place] TYPE AND SCREENon 09-21-2020 ABO INTERPRETATION A Normal [facility] Comment on above: Performed By: #### 6 2586 ####[facility]3000 [facility].[address] RH INTERPRETATION Positive Normal [facility] Comment on above: Performed By: #### 6 2586 ####[facility] *SARS-CoV-2 COVID-19on 09-20 [id number] Not Detected Normal Not Detected [facility] Comment on above: Order Comment: The A ptima SARS-CoV-2 assay is a nucleic acid amplification testintended for the qualitative detection of RNA from SARS-CoV-2 isolatedand purified from nasopharyngeal (LIFE INSURANCE SPECIALIST),oropharyngeal (OP), nasal swab,sputum, and bronchoalveolar lavage (BAL) specimens from patients withsigns and symptoms of infection who are suspected of COVID-19.Results are for the identification of SARS-CoV-2 RNA. The SARS-CoV-2 RNAis generally detectable during the acute phase of infection.The Aptima SARS-CoV-2 Assay on the [employer] system isintended for use by laboratory personnel specifically instructed andtrained in the operation of the [employer] system. TheAptima SARS-CoV-2 assay is only [...] information. Performed By: #### 1 0008 #### [facility] [address] BASIC METABOLIC PANELon 11- Calcium [Mass/Vol] 8.1 mg/dL Low 8.6-10.3 [facility] Comment on above: Order Comment: No: D o not add to previous draw Performed By: #### 5 0608 #### [facility] [address] [place] [address], [place] Chloride [Moles/Vol] 110 mmol/L High 98-107 [facility] Comment on above: Order Comment: No: D o not add to previous draw Performed By: #### 5 0608 #### [facility] [address] [place] [address], [place] CO2 [Moles/Vol] 21 mmol/L Normal 21-31 [facility] Comment on above: Order Comment: No: D o not add to previous draw Performed By: #### 5 0608 #### [facility] [address] [place] [address], [place] Creatinine [Mass/Vol] 4.19 mg/dL High 0.70-1.30 [facility] Comment on above: Order Comment: No: D o not add to previous draw Performed By: #### 5 0608 #### [facility] [address] [place] [address], [place] GFR/1.73 sq M predicted among blacks MDRD (S/P/Bld) [Vol rate/Area] 17 ml/min/1.73sq m Abnormal >60 [facility] Comment on above: Order Comment: No: D o not add to previous draw Result Comment: Calc ulation may not be valid for patients over 70 years Performed By: #### 5 0608 #### [facility] [address] [place] [address], [place] GFR/1.73 sq M predicted among non-blacks MDRD (S/P/Bld) [Vol rate/Area] 14 ml/min/1.73sq m Abnormal >60 [facility] Comment on above: Order Comment: No: D o not add to previous draw Result Comment: Calc ulation may not be valid for patients over 70 years Performed By: #### 5 0608 #### [facility] [address] [place] [address], [place] Glucose [Mass/Vol] 94 mg/dL Normal 70-100 [facility] Comment on above: Order Comment: No: D o not add to previous draw Performed By: #### 5 0608 #### [facility] [address] [place] [address], [facility] Potassium [Moles/Vol] 4.4 mmol/L Normal 3.5-5.1 [facility] Comment on above: Order Comment: No: D o not add to previous draw Performed By: #### 5 0608 #### [facility] 3000 [facility]. [address] Sodium [Moles/Vol] 137 mmol/L Normal 136-145 [facility] Comment on above: Order Comment: No: D o not add to previous draw Performed By: #### 5 0608 #### [facility] [address] Urea nitrogen [Mass/Vol] 38 mg/dL High 7-25 [facility] Comment on above: Order Comment: No: D o not add to previous draw Performed By: #### 5 0608 #### [facility] [address] CBC W/DIFFon 09-20-2020 ABS BASOPHILS 0.0 10*3/uL Normal 0.0-0.2 [facility] Comment on above: Performed By: #### 3 1791 #### [facility] [address] ABS IMM GRANS 0.0 10*3/uL Normal 0.0-0.2 [facility] Comment on above: Performed By: #### 3 1791 #### [facility] [address] ABS NEUTROPHILS 2.3 10*3/uL Normal 1.6-7.6 [facility] Comment on above: Performed By: #### 3 1791 #### [facility] [address] [place] [address], [facility] Basophils/100 WBC (Bld) 0.3 % Normal 0.0-1.0 [facility] Comment on above: Performed By: #### 3 1791 #### [facility] [address] [facility] [place] [address], [facility] Eosinophils (Bld) [#/Vol] 0.0 10*3/uL Normal 0.0-0.5 [facility] Comment on above: Performed By: #### 3 1791 #### [facility] [address] [facility] [place] [address], [facility] Eosinophils/100 WBC (Bld) 0.8 % Normal 0.0-6.0 [facility] Comment on above: Performed By: #### 3 1791 #### [facility] 3000 [facility]. [address] Erythrocyte distribution width (RBC) [Ratio] 15.4 % High 11.5-15.0 [facility] Comment on above: Performed By: #### 3 1791 #### [facility] [address] [facility]. [address] Hematocrit (Bld) [Volume fraction] 21.1 % Low 39.0-50.0 [facility] Comment on above: Performed By: #### 3 1791 #### [facility] [address] [facility]. [address] Hemoglobin (Bld) [Mass/Vol] 7.1 g/dL Low 13.0-17.0 [facility] Comment on above: Performed By: #### 3 1791 #### [facility] [address] [facility] [place] [address], [facility] IMMATURE GRANS 0.5 % Normal 0.0-1.0 [facility] Comment on above: Performed By: #### 3 1791 #### [facility] [address] [facility] [place] [address], [facility] Lymphocytes (Bld) [#/Vol] 1.2 10*3/uL Normal 1.2-4.0 [facility] Comment on above: Performed By: #### 3 1791 #### [facility] [address] [place] [address], [facility] Lymphocytes/100 WBC (Bld) 29.6 % Normal 20.0-45.0 [facility] Comment on above: Performed By: #### 3 1791 #### [facility] [address] [place] [address], [facility] MCH (RBC) [Entitic mass] 31.7 pg Normal 27.0-33.0 [facility] Comment on above: Performed By: #### 3 1791 #### [facility] [address] [place] [address], [facility] MCHC (RBC) [Mass/Vol] 33.6 g/dL Normal 32.0-35.0 [facility] Comment on above: Performed By: #### 3 1791 #### [facility] [address] [place] [address], [facility] MCV (RBC) [Entitic vol] 94.2 fL Normal 82.0-98.0 [facility] Comment on above: Performed By: #### 3 1791 #### [facility] [address] [place] [address], [facility] Monocytes (Bld) [#/Vol] 0.4 10*3/uL Normal 0.1-1.0 [facility] Comment on above: Performed By: #### 3 1791 #### [facility] [address] [place] [address], [facility] MONOS 10.5 % Normal 5.0-12.0 [facility] Comment on above: Performed By: #### 3 1791 #### [facility] [address] [place] [address], [facility] Neutrophils/100 WBC (Bld) 58.3 % Normal 40.0-72.0 [facility] Comment on above: Performed By: #### 3 1792 #### [facility] [address] [place] [address], [facility] Nucleated RBC/100 WBC (Bld) [Ratio] 0 % Normal 0-0 [facility] Comment on above: Performed By: #### 3 179 #### [facility] [address] [place] [address], [facility] PLAT CNT 160 10*3/uL Normal 150-400 [facility] Comment on above: Performed By: #### 3 1792 #### [facility] [address] [place] [address], [facility] RBC (Bld) [#/Vol] 2.24 10*6/uL Low 4.20-5.70 [facility] Comment on above: Performed By: #### 3 1792 #### [facility] [address] [facility] [place] [address], [facility] WBC (Bld) [#/Vol] 3.92 10*3/uL Low 4.00-10.60 [facility] Comment on above: Performed By: #### 3 1792 #### [facility] [address] [facility] [place] [address], [facility] CBC COMPLETE BLOOD COUNTon 11-19-2019 Erythrocyte distribution width (RBC) [Ratio] 15.3 % High 11.5-15.0 [facility] Comment on above: Order Comment: No: D o not add to previous draw Performed By: #### 3 0478 #### [facility] [address] [place] [address], [facility] Hematocrit (Bld) [Volume fraction] 23.3 % Low 39.0-50.0 [facility] Comment on above: Order Comment: No: D o not add to previous draw Performed By: #### 3 0478 #### [facility] [address] [place] [address], [facility] Hemoglobin (Bld) [Mass/Vol] 7.8 g/dL Low 13.0-17.0 [facility] Comment on above: Order Comment: No: D o not add to previous draw Performed By: #### 3 0478 #### [facility] [address] [place] [address], [facility] MCH (RBC) [Entitic mass] 31.3 pg Normal 27.0-33.0 [facility] Comment on above: Order Comment: No: D o not add to previous draw Performed By: #### 3 0478 #### [facility] [address] [facility] [place] [address], [facility] MCHC (RBC) [Mass/Vol] 33.5 g/dL Normal 32.0-35.0 [facility] Comment on above: Order Comment: No: D o not add to previous draw Performed By: #### 3 0478 #### [facility] [address] [facility] [place] [address], [facility] MCV (RBC) [Entitic vol] 93.6 fL Normal 82.0-98.0 [facility] Comment on above: Order Comment: No: D o not add to previous draw Performed By: #### 3 0478 #### [facility] [address] [facility]. [address] Nucleated RBC/100 WBC (Bld) [Ratio] 0 % Normal 0-0 [facility] Comment on above: Order Comment: No: D o not add to previous draw Performed By: #### 3 0478 #### [facility] [address] [facility] [place] [address], [facility] PLAT CNT 174 10*3/uL Normal 150-400 [facility] Comment on above: Order Comment: No: D o not add to previous draw Performed By: #### 3 0478 #### [facility] [address] [place] [address], [facility] RBC (Bld) [#/Vol] 2.49 10*6/uL Low 4.20-5.70 [facility] Comment on above: Order Comment: No: D o not add to previous draw Performed By: #### 3 0478 #### [facility] [address] [place] [address], [facility] WBC (Bld) [#/Vol] 5.25 10*3/uL Normal 4.00-10.60 [facility] Comment on above: Order Comment: No: D o not add to previous draw Performed By: #### 3 0478 #### [facility] [address] [place] [address], [facility] COMP METABOLIC PANELon 09-19 Albumin [Mass/Vol] 3.1 g/dL Low 3.5-5.7 [facility] Comment on above: Order Comment: No: D o not add to previous draw Performed By: #### 5 0608 #### [facility] [address] [place] [address], [facility] ALKALINE PHOSPH 20 IU/L Low 34-104 [facility] Comment on above: Order Comment: No: D o not add to previous draw Performed By: #### 5 0608 #### [facility] [address] [place] [address], [facility] ALT [Catalytic activity/Vol] 7 U/L Normal 7-52 [facility] Comment on above: Order Comment: No: D o not add to previous draw Performed By: #### 5 0608 #### [facility] [address] [place] [address], [place] AST [Catalytic activity/Vol] 10 U/L Low 13-39 [facility] Comment on above: Order Comment: No: D o not add to previous draw Performed By: #### 5 0608 #### [facility] [address] [place] [id number], [facility] Bilirubin [Mass/Vol] 0.4 mg/dL Normal 0.3-1.0 [facility] Comment on above: Order Comment: No: D o not add to previous draw Performed By: #### 5 0608 #### [facility] [address] [place] [address], [place] Calcium [Mass/Vol] 8.2 mg/dL Low 8.6-10.3 [facility] Comment on above: Order Comment: No: D o not add to previous draw Performed By: #### 5 0608 #### [facility] [address] [place] [address], [place] Chloride [Moles/Vol] 108 mmol/L High 98-107 [facility] Comment on above: Order Comment: No: D o not add to previous draw Performed By: #### 5 0608 #### [facility] [address] [place] [address], [place] CO2 [Moles/Vol] 20 mmol/L Low 21-31 [facility] Comment on above: Order Comment: No: D o not add to previous draw Performed By: #### 5 0608 #### [facility] [address] [place] [address], [place] Creatinine [Mass/Vol] 4.29 mg/dL High 0.70-1.30 [facility] Comment on above: Order Comment: No: D o not add to previous draw Performed By: #### 5 0608 #### [facility] [address] [place] [address], [place] GFR/1.73 sq M predicted among blacks MDRD (S/P/Bld) [Vol rate/Area] 16 ml/min/1.73sq m Abnormal >60 [facility] Comment on above: Order Comment: No: D o not add to previous draw Result Comment: Calc ulation may not be valid for patients over 70 years Performed By: #### 5 0608 #### [facility] [address] [place] [address], [facility] GFR/1.73 sq M predicted among non-blacks MDRD (S/P/Bld) [Vol rate/Area] 14 ml/min/1.73sq m Abnormal >60 [facility] Comment on above: Order Comment: No: D o not add to previous draw Result Comment: Calc ulation may not be valid for patients over 70 years Performed By: #### 5 0608 #### [facility] [address] [place] [address], [place] Glucose [Mass/Vol] 93 mg/dL Normal 70-100 [facility] Comment on above: Order Comment: No: D o not add to previous draw Performed By: #### 5 0608 #### [facility] [address] [place] [address], [place] Potassium [Moles/Vol] 4.1 mmol/L Normal 3.5-5.1 [facility] Comment on above: Order Comment: No: D o not add to previous draw Performed By: #### 5 0608 #### [facility] [address] [place] [address], [place] Protein [Mass/Vol] 5.4 g/dL Low 6.0-8.3 [facility] Comment on above: Order Comment: No: D o not add to previous draw Performed By: #### 5 0608 #### [facility] [address] [place] [address], [place] Sodium [Moles/Vol] 134 mmol/L Low 136-145 [facility] Comment on above: Order Comment: No: D o not add to previous draw Performed By: #### 5 0608 #### [facility] [address] [place] [address], [place] Urea nitrogen [Mass/Vol] 39 mg/dL High 7-25 [facility] Comment on above: Order Comment: No: D o not add to previous draw Performed By: #### 5 0608 #### [facility] [address] PROTHROMBIN TIMEon 09-19-202 0 INR Coag (PPP) [Relative time] 1.08 {INR} Normal 0.91-1.16 [facility] Comment on above: Order Comment: No: D [...] CHEST 1995;[id number]. Performed By: #### 3 1509, [id number] #### [facility] [address] [facility] [place] [address], [facility] PT Coag (PPP) [Time] 14.0 s Normal 12.3-14.8 [facility] Comment on above: Order Comment: No: D o not add to previous draw Result Comment: ALL RESULTS MUST BE INTERPRETED WITH RESPECT TO BLOOD DRAWING ARTIFACT OR DILUTION ERROR OF ANTICOAGULANT AT THE TIME OF SAMPLING. Performed By: #### 3 1509, [id number] #### [facility] [address] [place] [address], [facility] BASIC METABOLIC PANELon 11-1 Calcium [Mass/Vol] 8.0 mg/dL Low 8.6-10.3 [facility] Comment on above: Order Comment: No: D o not add to previous draw Performed By: #### 5 0608 #### [facility] [address] [place] [address], [place] Chloride [Moles/Vol] 109 mmol/L High 98-107 [facility] Comment on above: Order Comment: No: D o not add to previous draw Performed By: #### 5 0608 #### [facility] [address] [place] [address], [place] CO2 [Moles/Vol] 19 mmol/L Low 21-31 [facility] Comment on above: Order Comment: No: D o not add to previous draw Performed By: #### 5 0608 #### [facility] [address] [place] [address], [place] Creatinine [Mass/Vol] 4.82 mg/dL High 0.70-1.30 [facility] Comment on above: Order Comment: No: D o not add to previous draw Performed By: #### 5 0608 #### [facility] [address] [place] [address], [place] GFR/1.73 sq M predicted among blacks MDRD (S/P/Bld) [Vol rate/Area] 14 ml/min/1.73sq m Abnormal >60 [facility] Comment on above: Order Comment: No: D o not add to previous draw Result Comment: Calc ulation may not be valid for patients over 70 years Performed By: #### 5 0608 #### [facility] [address] [place] [address], [place] GFR/1.73 sq M predicted among non-blacks MDRD (S/P/Bld) [Vol rate/Area] 12 ml/min/1.73sq m Abnormal >60 [facility] Comment on above: Order Comment: No: D o not add to previous draw Result Comment: Calc ulation may not be valid for patients over 70 years Performed By: #### 5 0608 #### [facility] [address] [place] [address], [facility] Glucose [Mass/Vol] 94 mg/dL Normal 70-100 [facility] Comment on above: Order Comment: No: D o not add to previous draw Performed By: #### 5 0608 #### [facility] [address] [place] [address], [place] Potassium [Moles/Vol] 4.3 mmol/L Normal 3.5-5.1 [facility] Comment on above: Order Comment: No: D o not add to previous draw Performed By: #### 5 0608 #### [facility] [address] [place] [address], [place] Sodium [Moles/Vol] 136 mmol/L Normal 136-145 [facility] Comment on above: Order Comment: No: D o not add to previous draw Performed By: #### 5 0608 #### [facility] [address] [place] [address], [facility] Urea nitrogen [Mass/Vol] 50 mg/dL High 7-25 [facility] Comment on above: Order Comment: No: D o not add to previous draw Performed By: #### 5 0608 #### [facility] [address] [place] [address], [facility] CBC COMPLETE BLOOD COUNTon 11-18-2019 Erythrocyte distribution width (RBC) [Ratio] 15.6 % High 11.5-15.0 [facility] Comment on above: Order Comment: No: D o not add to previous draw Performed By: #### 3 0478 #### [facility] [address] [place] [address], [place] Hematocrit (Bld) [Volume fraction] 22.7 % Low 39.0-50.0 [facility] Comment on above: Order Comment: No: D o not add to previous draw Performed By: #### 3 0478 #### [facility] [address] [place] [address], [facility] Hemoglobin (Bld) [Mass/Vol] 7.5 g/dL Low 13.0-17.0 [facility] Comment on above: Order Comment: No: D o not add to previous draw Performed By: #### 3 0478 #### [facility] [address] [place] [address], [facility] MCH (RBC) [Entitic mass] 31.1 pg Normal 27.0-33.0 [facility] Comment on above: Order Comment: No: D o not add to previous draw Performed By: #### 3 0478 #### [facility] [address] [place] [address], [facility] MCHC (RBC) [Mass/Vol] 33.0 g/dL Normal 32.0-35.0 [facility] Comment on above: Order Comment: No: D o not add to previous draw Performed By: #### 3 0478 #### [facility] [address] [place] [address], [facility] MCV (RBC) [Entitic vol] 94.2 fL Normal 82.0-98.0 [facility] Comment on above: Order Comment: No: D o not add to previous draw Performed By: #### 3 0478 #### [facility] [address] [place] [address], [facility] Nucleated RBC/100 WBC (Bld) [Ratio] 0 % Normal 0-0 [facility] Comment on above: Order Comment: No: D o not add to previous draw Performed By: #### 3 0478 #### [facility] [address] [place] [id number], [place] PLAT CNT 160 10*3/uL Normal 150-400 [facility] Comment on above: Order Comment: No: D o not add to previous draw Performed By: #### 3 0478 #### [facility] [address] [place] [id number], [facility] RBC (Bld) [#/Vol] 2.41 10*6/uL Low 4.20-5.70 [facility] Comment on above: Order Comment: No: D o not add to previous draw Performed By: #### 3 0478 #### [facility] [address] [place] [address], [facility] WBC (Bld) [#/Vol] 5.35 10*3/uL Normal 4.00-10.60 [facility] Comment on above: Order Comment: No: D o not add to previous draw Performed By: #### 3 0478 #### [facility] [address] [facility] [address] *SARS-CoV-2 COVID-19on 09-17 [id number] Not Detected Normal Not Detected [facility] Comment on above: Order Comment: The A ptima SARS-CoV-2 assay is a nucleic acid amplification test intended for the qualitative detection of RNA from SARS-CoV-2 isolated and purified from nasopharyngeal ([employer] INS[employer] SPECIALIST),oropharyngeal (OP), nasal swab, sputum, and bronchoalveolar lavage (BAL) specimens from patients with signs and symptoms of infection who are suspected of COVID-19. Results are for the identification of SARS-CoV-2 RNA. The SARS-CoV-2 RNA is generally detectable during the acute phase of infection. The [employer]ima SARS-CoV-2 Assay on the [employer] system is intended for use by laboratory personnel specifically instructed and trained in the operation of the [employer] system. The Aptima SARS-CoV-2 assay is [...] information. Performed By: #### 3 1792 #### [facility] [address] BASIC METABOLIC PANELon 11- Calcium [Mass/Vol] 7.9 mg/dL Low 8.6-10.3 [facility] Comment on above: Order Comment: No: D o not add to previous draw Performed By: #### 0 0071 ####[facility] [facility] [place] [address], [facility] Chloride [Moles/Vol] 107 mmol/L Normal 98-107 [facility] Comment on above: Order Comment: No: D o not add to previous draw Performed By: #### 0 0071 ####[facility] [facility] [address], [facility] CO2 [Moles/Vol] 19 mmol/L Low 21-31 [facility] Comment on above: Order Comment: No: D o not add to previous draw Performed By: #### 0 0071 ####[facility] [facility] [place] [address], [facility] Creatinine [Mass/Vol] 5.59 mg/dL High 0.70-1.30 [facility] Comment on above: Order Comment: No: D o not add to previous draw Performed By: #### 0 0071 ####[facility] [facility] [place] [address], [facility] GFR/1.73 sq M predicted among blacks MDRD (S/P/Bld) [Vol rate/Area] 12 ml/min/1.73sq m Abnormal >60 [facility] Comment on above: Order Comment: No: D o not add to previous draw Result Comment: Calc ulation may not be valid for patients over 70 years Performed By: #### 0 0071 ####[facility] [facility] [place] [address], [facility] GFR/1.73 sq M predicted among non-blacks MDRD (S/P/Bld) [Vol rate/Area] 10 ml/min/1.73sq m Abnormal >60 [facility] Comment on above: Order Comment: No: D o not add to previous draw Result Comment: Calc ulation may not be valid for patients over 70 years Performed By: #### 0 0071 ####[facility] [place] [address], [facility] Glucose [Mass/Vol] 110 mg/dL High 70-100 [facility] Comment on above: Order Comment: No: D o not add to previous draw Performed By: #### 0 0071 ####[facility] [facility] [place] [address], [facility] Potassium [Moles/Vol] 4.0 mmol/L Normal 3.5-5.1 [facility] Comment on above: Order Comment: No: D o not add to previous draw Performed By: #### 0 0071 ####[facility] [facility].[address] Sodium [Moles/Vol] 134 mmol/L Low 136-145 [facility] Comment on above: Order Comment: No: D o not add to previous draw Performed By: #### 0 0071 ####[facility] [facility].[address] Urea nitrogen [Mass/Vol] 55 mg/dL High 7-25 [facility] Comment on above: Order Comment: No: D o not add to previous draw Performed By: #### 0 0071 ####[facility] [facility].[address] CBC COMPLETE BLOOD COUNTon 11-17-2019 Erythrocyte distribution width (RBC) [Ratio] 15.8 % High 11.5-15.0 [facility] Comment on above: Order Comment: No: D o not add to previous draw Performed By: #### 1 0008 #### [facility] [address] [place] [address], [facility] Hematocrit (Bld) [Volume fraction] 21.1 % Low 39.0-50.0 [facility] Comment on above: Order Comment: No: D o not add to previous draw Performed By: #### 1 0008 #### [facility] [address] [place] [address], [facility] Hemoglobin (Bld) [Mass/Vol] 7.2 g/dL Low 13.0-17.0 [facility] Comment on above: Order Comment: No: D o not add to previous draw Performed By: #### 1 0008 #### [facility] [address] [facility] [place] [address], [facility] MCH (RBC) [Entitic mass] 31.7 pg Normal 27.0-33.0 [facility] Comment on above: Order Comment: No: D o not add to previous draw Performed By: #### 1 0008 #### [facility] [address] MCHC (RBC) [Mass/Vol] 34.1 g/dL Normal 32.0-35.0 [facility] Comment on above: Order Comment: No: D o not add to previous draw Performed By: #### 1 0008 #### [facility] [address] [place] [address], [facility] MCV (RBC) [Entitic vol] 93.0 fL Normal 82.0-98.0 [facility] Comment on above: Order Comment: No: D o not add to previous draw Performed By: #### 1 0008 #### [facility] [address] Nucleated RBC/100 WBC (Bld) [Ratio] 0 % Normal 0-0 [facility] Comment on above: Order Comment: No: D o not add to previous draw Performed By: #### 1 0008 #### [facility] [address] [place] [address], [facility] PLAT CNT 148 10*3/uL Low 150-400 [facility] Comment on above: Order Comment: No: D o not add to previous draw Performed By: #### 1 0008 #### [facility] [address] [place] [address], [facility] RBC (Bld) [#/Vol] 2.27 10*6/uL Low 4.20-5.70 [facility] Comment on above: Order Comment: No: D o not add to previous draw Performed By: #### 1 0008 #### [facility] [address] [place] [address], [place] WBC (Bld) [#/Vol] 4.90 10*3/uL Normal 4.00-10.60 [facility] Comment on above: Order Comment: No: D o not add to previous draw Performed By: #### 1 0008 #### [facility] [address] [place] [address], [facility] BASIC METABOLIC PANELon 11- Calcium [Mass/Vol] 7.9 mg/dL Low 8.6-10.3 [facility] Comment on above: Order Comment: No: D o not add to previous draw Performed By: #### 5 0608 #### [facility] [address] [place] [address], [place] Chloride [Moles/Vol] 107 mmol/L Normal 98-107 [facility] Comment on above: Order Comment: No: D o not add to previous draw Performed By: #### 5 0608 #### [facility] [address] [place] [address], [facility] CO2 [Moles/Vol] 18 mmol/L Low 21-31 [facility] Comment on above: Order Comment: No: D o not add to previous draw Performed By: #### 5 0608 #### [facility] [address] [place] [address], [place] Creatinine [Mass/Vol] 5.65 mg/dL High 0.70-1.30 [facility] Comment on above: Order Comment: No: D o not add to previous draw Performed By: #### 5 0608 #### [facility] [address] [place] [address], [place] GFR/1.73 sq M predicted among blacks MDRD (S/P/Bld) [Vol rate/Area] 12 ml/min/1.73sq m Abnormal >60 [facility] Comment on above: Order Comment: No: D o not add to previous draw Result Comment: Calc ulation may not be valid for patients over 70 years Performed By: #### 5 0608 #### [facility] [address] [place] [address], [place] GFR/1.73 sq M predicted among non-blacks MDRD (S/P/Bld) [Vol rate/Area] 10 ml/min/1.73sq m Abnormal >60 [facility] Comment on above: Order Comment: No: D o not add to previous draw Result Comment: Calc ulation may not be valid for patients over 70 years Performed By: #### 5 0608 #### [facility] [address] [place] [address], [place] Glucose [Mass/Vol] 108 mg/dL High 70-100 [facility] Comment on above: Order Comment: No: D o not add to previous draw Performed By: #### 5 0608 #### [facility] [address] [place] [address], [place] Potassium [Moles/Vol] 3.7 mmol/L Normal 3.5-5.1 [facility] Comment on above: Order Comment: No: D o not add to previous draw Performed By: #### 5 0608 #### [facility] [address] [place] [address], [place] Sodium [Moles/Vol] 135 mmol/L Low 136-145 [facility] Comment on above: Order Comment: No: D o not add to previous draw Performed By: #### 5 0608 #### [facility] [address] [place] [address], [place] Urea nitrogen [Mass/Vol] 56 mg/dL High 7-25 [facility] Comment on above: Order Comment: No: D o not add to previous draw Performed By: #### 5 0608 #### [facility] [address] [place] [address], [facility] CBC COMPLETE BLOOD COUNTon 11-16-2019 Erythrocyte distribution width (RBC) [Ratio] 16.0 % High 11.5-15.0 [facility] Comment on above: Order Comment: No: D o not add to previous draw Performed By: #### 1 0008 #### [facility] [address] [place] [address], [facility] Hematocrit (Bld) [Volume fraction] 23.3 % Low 39.0-50.0 [facility] Comment on above: Order Comment: No: D o not add to previous draw Performed By: #### 1 0008 #### [facility] [address] [address], [facility] Hemoglobin (Bld) [Mass/Vol] 7.8 g/dL Low 13.0-17.0 [facility] Comment on above: Order Comment: No: D o not add to previous draw Performed By: #### 1 0008 #### [facility] [address] [place] [address], [facility] MCH (RBC) [Entitic mass] 31.2 pg Normal 27.0-33.0 [facility] Comment on above: Order Comment: No: D o not add to previous draw Performed By: #### 1 0008 #### [facility] [address] [place] [id number], [facility] MCHC (RBC) [Mass/Vol] 33.5 g/dL Normal 32.0-35.0 [facility] Comment on above: Order Comment: No: D o not add to previous draw Performed By: #### 1 0008 #### [facility] [address] [place] [address], [facility] MCV (RBC) [Entitic vol] 93.2 fL Normal 82.0-98.0 [facility] Comment on above: Order Comment: No: D o not add to previous draw Performed By: #### 1 0008 #### [facility] [address] [place] [address], [facility] Nucleated RBC/100 WBC (Bld) [Ratio] 0 % Normal 0-0 [facility] Comment on above: Order Comment: No: D o not add to previous draw Performed By: #### 1 0008 #### [facility] [address] [place] [address], [facility] PLAT CNT 154 10*3/uL Normal 150-400 [facility] Comment on above: Order Comment: No: D o not add to previous draw Performed By: #### 1 0008 #### [facility] [address] [place] [address], [facility] RBC (Bld) [#/Vol] 2.50 10*6/uL Low 4.20-5.70 [facility] Comment on above: Order Comment: No: D o not add to previous draw Performed By: #### 1 0008 #### [facility] [address] [place] [id number], [facility] WBC (Bld) [#/Vol] 5.13 10*3/uL Normal 4.00-10.60 [facility] Comment on above: Order Comment: No: D o not add to previous draw Performed By: #### 1 0008 #### [facility] [address] [place] [address], [facility] BASIC METABOLIC PANELon 11-1 Calcium [Mass/Vol] 8.0 mg/dL Low 8.6-10.3 [facility] Comment on above: Order Comment: No: D o not add to previous draw Performed By: #### 5 6101 #### [facility] [address] [place] [id number], [place] Chloride [Moles/Vol] 106 mmol/L Normal 98-107 [facility] Comment on above: Order Comment: No: D o not add to previous draw Performed By: #### 5 6101 #### [facility] [address] [place] [address], [place] CO2 [Moles/Vol] 20 mmol/L Low 21-31 [facility] Comment on above: Order Comment: No: D o not add to previous draw Performed By: #### 5 6101 #### [facility] [address] [place] [address], [place] Creatinine [Mass/Vol] 5.90 mg/dL High 0.70-1.30 [facility] Comment on above: Order Comment: No: D o not add to previous draw Performed By: #### 5 6101 #### [facility] [address] [place] [address], [place] GFR/1.73 sq M predicted among blacks MDRD (S/P/Bld) [Vol rate/Area] 11 ml/min/1.73sq m Abnormal >60 [facility] Comment on above: Order Comment: No: D o not add to previous draw Result Comment: Calc ulation may not be valid for patients over 70 years Performed By: #### 5 6101 #### [facility] [address] [place] [address], [place] GFR/1.73 sq M predicted among non-blacks MDRD (S/P/Bld) [Vol rate/Area] 9 ml/min/1.73sq m Abnormal >60 [facility] Comment on above: Order Comment: No: D o not add to previous draw Result Comment: Calc ulation may not be valid for patients over 70 years Performed By: #### 5 6101 #### [facility] [address] [place] [address], [place] Glucose [Mass/Vol] 97 mg/dL Normal 70-100 [facility] Comment on above: Order Comment: No: D o not add to previous draw Performed By: #### 5 6101 #### [facility] [address] [place] [address], [facility] Potassium [Moles/Vol] 3.6 mmol/L Normal 3.5-5.1 [facility] Comment on above: Order Comment: No: D o not add to previous draw Performed By: #### 5 6101 #### [facility] [address] [place] [address], [facility] Sodium [Moles/Vol] 135 mmol/L Low 136-145 [facility] Comment on above: Order Comment: No: D o not add to previous draw Performed By: #### 5 6101 #### [facility] [address] [place] [address], [facility] Urea nitrogen [Mass/Vol] 54 mg/dL High 7-25 [facility] Comment on above: Order Comment: No: D o not add to previous draw Performed By: #### 5 6101 #### [facility] [address] [place] [address], [facility] CBC COMPLETE BLOOD COUNTon 11-15-2019 Erythrocyte distribution width (RBC) [Ratio] 16.4 % High 11.5-15.0 [facility] Comment on above: Order Comment: No: D o not add to previous draw Performed By: #### 5 0608 #### [facility] [address] [place] [address], [facility] Hematocrit (Bld) [Volume fraction] 22.6 % Low 39.0-50.0 [facility] Comment on above: Order Comment: No: D o not add to previous draw Performed By: #### 5 0608 #### [facility] [address] [place] [address], [facility] Hemoglobin (Bld) [Mass/Vol] 7.5 g/dL Low 13.0-17.0 [facility] Comment on above: Order Comment: No: D o not add to previous draw Performed By: #### 5 0608 #### [facility] [address] [place] [address], [facility] MCH (RBC) [Entitic mass] 30.9 pg Normal 27.0-33.0 [facility] Comment on above: Order Comment: No: D o not add to previous draw Performed By: #### 5 0608 #### [facility] [address] [place] [id number], [facility] MCHC (RBC) [Mass/Vol] 33.2 g/dL Normal 32.0-35.0 [facility] Comment on above: Order Comment: No: D o not add to previous draw Performed By: #### 5 0608 #### [facility] [address] [place] [address], [facility] MCV (RBC) [Entitic vol] 93.0 fL Normal 82.0-98.0 [facility] Comment on above: Order Comment: No: D o not add to previous draw Performed By: #### 5 0608 #### [facility] [address] [facility] [place] [address], [facility] Nucleated RBC/100 WBC (Bld) [Ratio] 0 % Normal 0-0 [facility] Comment on above: Order Comment: No: D o not add to previous draw Performed By: #### 5 0608 #### [facility] [address] [place] [id number], [facility] PLAT CNT 154 10*3/uL Normal 150-400 [facility] Comment on above: Order Comment: No: D o not add to previous draw Performed By: #### 5 0608 #### [facility] [address] [facility] [place] [address], [facility] RBC (Bld) [#/Vol] 2.43 10*6/uL Low 4.20-5.70 [facility] Comment on above: Order Comment: No: D o not add to previous draw Performed By: #### 5 0608 #### [facility] [address] [facility] [place] [address], [facility] WBC (Bld) [#/Vol] 5.11 10*3/uL Normal 4.00-10.60 [facility] Comment on above: Order Comment: No: D o not add to previous draw Performed By: #### 5 0608 #### [facility] [address] [facility] [address] *SARS-CoV-2 COVID-19on 09-14 [id number] Not Detected Normal Not Detected [facility] Comment on above: Order Comment: The A ptima SARS-CoV-2 assay is a nucleic acid amplification testintended for the qualitative detection of RNA from SARS-CoV-2 isolatedand purified from nasopharyngeal (LIFE INSURANCE SPECIALIST),oropharyngeal (OP), nasal swab,sputum, and bronchoalveolar lavage (BAL) specimens from patients withsigns and symptoms of infection who are suspected of COVID-19.Results are for the identification of SARS-CoV-2 RNA. The SARS-CoV-2 RNAis generally detectable during the acute phase of infection.The Aptima SARS-CoV-2 Assay on the [employer] system isintended for use by laboratory personnel specifically instructed andtrained in the operation of the [employer] system. TheAptima SARS-CoV-2 assay is only [...] information. Performed By: #### 1 0008 #### [facility] [address] [facility] BASIC METABOLIC PANELon 09-03 Calcium [Mass/Vol] 8.2 mg/dL Low 8.6-10.3 [facility] Comment on above: Order Comment: No: D o not add to previous draw Performed By: #### 5 6101 #### [facility] [address] [place] [address], [place] Chloride [Moles/Vol] 107 mmol/L Normal 98-107 [facility] Comment on above: Order Comment: No: D o not add to previous draw Performed By: #### 5 6101 #### [facility] [address] [place] [address], [place] CO2 [Moles/Vol] 22 mmol/L Normal 21-31 [facility] Comment on above: Order Comment: No: D o not add to previous draw Performed By: #### 5 6101 #### [facility] [address] [place] [address], [place] Creatinine [Mass/Vol] 6.45 mg/dL High 0.70-1.30 [facility] Comment on above: Order Comment: No: D o not add to previous draw Performed By: #### 5 6101 #### [facility] [address] [place] [address], [place] GFR/1.73 sq M predicted among blacks MDRD (S/P/Bld) [Vol rate/Area] 10 ml/min/1.73sq m Abnormal >60 [facility] Comment on above: Order Comment: No: D o not add to previous draw Result Comment: Calc ulation may not be valid for patients over 70 years Performed By: #### 5 6101 #### [facility] [address] [place] [address], [place] GFR/1.73 sq M predicted among non-blacks MDRD (S/P/Bld) [Vol rate/Area] 8 ml/min/1.73sq m Abnormal >60 [facility] Comment on above: Order Comment: No: D o not add to previous draw Result Comment: Calc ulation may not be valid for patients over 70 years Performed By: #### 5 6101 #### [facility] [address] [place] [address], [facility] Glucose [Mass/Vol] 99 mg/dL Normal 70-100 [facility] Comment on above: Order Comment: No: D o not add to previous draw Performed By: #### 5 6101 #### [facility] [address] [place] [id number], [facility] Potassium [Moles/Vol] 3.8 mmol/L Normal 3.5-5.1 [facility] Comment on above: Order Comment: No: D o not add to previous draw Performed By: #### 5 6101 #### [facility] [address] [facility] [place] [address], [facility] Sodium [Moles/Vol] 138 mmol/L Normal 136-145 [facility] Comment on above: Order Comment: No: D o not add to previous draw Performed By: #### 5 6101 #### [facility] [address] [facility] [place] [id number], [facility] Urea nitrogen [Mass/Vol] 66 mg/dL High 7-25 [facility] Comment on above: Order Comment: No: D o not add to previous draw Performed By: #### 5 6101 #### [facility] [address] [facility]. [address] CBC COMPLETE BLOOD COUNTon 11-14-2019 Erythrocyte distribution width (RBC) [Ratio] 15.8 % High 11.5-15.0 [facility] Comment on above: Order Comment: The A ptima SARS-CoV-2 assay is a nucleic acid amplification test intended for the qualitative detection of RNA from SARS-CoV-2 isolated and purified from nasopharyngeal (LIFE INSURANCE SPECIALIST),oropharyngeal (OP), nasal swab, sputum, and bronchoalveolar lavage (BAL) specimens from patients with signs and symptoms of infection who are suspected of COVID-19. Results are for the identification of SARS-CoV-2 RNA. The SARS-CoV-2 RNA is generally detectable during the acute phase of infection. The Aptima SARS-CoV-2 Assay on the [employer] system is intended for use by laboratory personnel specifically instructed and trained in the operation of the [employer] system. The Aptima SARS-CoV-2 assay is [...] information. Performed By: #### 3 1792 #### [facility] [address] [place] [address], [facility] Hematocrit (Bld) [Volume fraction] 21.0 % Low 39.0-50.0 [facility] Comment on above: Order Comment: The A ptima SARS-CoV-2 assay is a nucleic acid amplification test intended for the qualitative detection of RNA from SARS-CoV-2 isolated and purified from nasopharyngeal (LIFE INSURANCE SPECIALIST),oropharyngeal (OP), nasal swab, sputum, and bronchoalveolar lavage (BAL) specimens from patients with signs and symptoms of infection who are suspected of COVID-19. Results are for the identification of SARS-CoV-2 RNA. The SARS-CoV-2 RNA is generally detectable during the acute phase of infection. The Aptima SARS-CoV-2 Assay on the [employer] system is intended for use by laboratory personnel specifically instructed and trained in the operation of the [employer] system. The Aptima SARS-CoV-2 assay is [...] information. Performed By: #### 3 1792 #### [facility] [address] [place] [address], [facility] Hemoglobin (Bld) [Mass/Vol] 6.8 g/dL Low 13.0-17.0 [facility] Comment on above: Order Comment: The A ptima SARS-CoV-2 assay is a nucleic acid amplification test intended for the qualitative detection of RNA from SARS-CoV-2 isolated and purified from nasopharyngeal (LIFE INSURANCE SPECIALIST),oropharyngeal (OP), nasal swab, sputum, and bronchoalveolar lavage (BAL) specimens from patients with signs and symptoms of infection who are suspected of COVID-19. Results are for the identification of SARS-CoV-2 RNA. The SARS-CoV-2 RNA is generally detectable during the acute phase of infection. The Aptima SARS-CoV-2 Assay on the [employer] system is intended for use by laboratory personnel specifically instructed and trained in the operation of the [employer] system. The Aptima SARS-CoV-2 assay is [...] information. Performed By: #### 3 1792 #### [address] MCH (RBC) [Entitic mass] 30.9 pg Normal 27.0-33.0 [facility] Comment on above: Order Comment: The A ptima SARS-CoV-2 assay is a nucleic acid amplification test intended for the qualitative detection of RNA from SARS-CoV-2 isolated and purified from nasopharyngeal (LIFE INSURANCE SPECIALIST),oropharyngeal (OP), nasal swab, sputum, and bronchoalveolar lavage (BAL) specimens from patients with signs and symptoms of infection who are suspected of COVID-19. Results are for the identification of SARS-CoV-2 RNA. The SARS-CoV-2 RNA is generally detectable during the acute phase of infection. The Aptima SARS-CoV-2 Assay on the [employer] system is intended for use by laboratory personnel specifically instructed and trained in the operation of the [employer] system. The Aptima SARS-CoV-2 assay is [...] and epidemiological information. Performed By: #### 3 [id number] #### [facility] [address] [facility] [place], [place] [id number] [place] [address] MCHC (RBC) [Mass/Vol] 32.4 g/dL Normal 32.0-35.0 [facility] Comment on above: Order Comment: The A ptima SARS-CoV-2 assay is a nucleic acid amplification test intended for the qualitative detection of RNA from SARS-CoV-2 isolated and purified from nasopharyngeal (LIFE INSURANCE SPECIALIST),oropharyngeal (OP), nasal swab, sputum, and bronchoalveolar lavage (BAL) specimens from patients with signs and symptoms of infection who are suspected of COVID-19. Results are for the identification of SARS-CoV-2 RNA. The SARS-CoV-2 RNA is generally detectable during the acute phase of infection. The Aptima SARS-CoV-2 Assay on the [employer] system is intended for use by laboratory personnel specifically instructed and trained in the operation of the [employer] system. The Aptima SARS-CoV-2 assay is [...] and epidemiological information. Performed By: #### 3 3052 #### [facility] [address] [place] [address], [facility] MCV (RBC) [Entitic vol] 95.5 fL Normal 82.0-98.0 [facility] Comment on above: Order Comment: The A ptima SARS-CoV-2 assay is a nucleic acid amplification test intended for the qualitative detection of RNA from SARS-CoV-2 isolated and purified from nasopharyngeal (LIFE INSURANCE SPECIALIST),oropharyngeal (OP), nasal swab, sputum, and bronchoalveolar lavage (BAL) specimens from patients with signs and symptoms of infection who are suspected of COVID-19. Results are for the identification of SARS-CoV-2 RNA. The SARS-CoV-2 RNA is generally detectable during the acute phase of infection. The Aptima SARS-CoV-2 Assay on the [employer] system is intended for use by laboratory personnel specifically instructed and trained in the operation of the [employer] system. The Aptima SARS-CoV-2 assay is [...] information. Performed By: #### 3 1792 #### [address] Nucleated RBC/100 WBC (Bld) [Ratio] 0 % Normal 0-0 [facility] Comment on above: Order Comment: The A ptima SARS-CoV-2 assay is a nucleic acid amplification test intended for the qualitative detection of RNA from SARS-CoV-2 isolated and purified from nasopharyngeal (LIFE INSURANCE SPECIALIST),oropharyngeal (OP), nasal swab, sputum, and bronchoalveolar lavage (BAL) specimens from patients with signs and symptoms of infection who are suspected of COVID-19. Results are for the identification of SARS-CoV-2 RNA. The SARS-CoV-2 RNA is generally detectable during the acute phase of infection. The Aptima SARS-CoV-2 Assay on the [employer] system is intended for use by laboratory personnel specifically instructed and trained in the operation of the [employer] system. The Aptima SARS-CoV-2 assay is [...] information. Performed By: #### 3 1792 #### [facility] [address] PLAT CNT 164 10*3/uL Normal 150-400 [facility] Comment on above: Order Comment: The A ptima SARS-CoV-2 assay is a nucleic acid amplification test intended for the qualitative detection of RNA from SARS-CoV-2 isolated and purified from nasopharyngeal (LIFE INSURANCE SPECIALIST),oropharyngeal (OP), nasal swab, sputum, and bronchoalveolar lavage (BAL) specimens from patients with signs and symptoms of infection who are suspected of COVID-19. Results are for the identification of SARS-CoV-2 RNA. The SARS-CoV-2 RNA is generally detectable during the acute phase of infection. The Aptima SARS-CoV-2 Assay on the [employer] system is intended for use by laboratory personnel specifically instructed and trained in the operation of the [employer] system. The Aptima SARS-CoV-2 assay is [...] information. Performed By: #### 3 [id number] #### [facility] [address] [facility] [place] [address], [facility] RBC (Bld) [#/Vol] 2.20 10*6/uL Low 4.20-5.70 [facility] Comment on above: Order Comment: The A ptima SARS-CoV-2 assay is a nucleic acid amplification test intended for the qualitative detection of RNA from SARS-CoV-2 isolated and purified from nasopharyngeal (LIFE INSURANCE SPECIALIST),oropharyngeal (OP), nasal swab, sputum, and bronchoalveolar lavage (BAL) specimens from patients with signs and symptoms of infection who are suspected of COVID-19. Results are for the identification of SARS-CoV-2 RNA. The SARS-CoV-2 RNA is generally detectable during the acute phase of infection. The Aptima SARS-CoV-2 Assay on the [employer] system is intended for use by laboratory personnel specifically instructed and trained in the operation of the [employer] system. The Aptima SARS-CoV-2 assay is [...] information. Performed By: #### 3 1792 #### [facility] [address] WBC (Bld) [#/Vol] 5.14 10*3/uL Normal 4.00-10.60 [facility] Comment on above: Order Comment: The A ptima SARS-CoV-2 assay is a nucleic acid amplification test intended for the qualitative detection of RNA from SARS-CoV-2 isolated and purified from nasopharyngeal (LIFE INSURANCE SPECIALIST),oropharyngeal (OP), nasal swab, sputum, and bronchoalveolar lavage (BAL) specimens from patients with signs and symptoms of infection who are suspected of COVID-19. Results are for the identification of SARS-CoV-2 RNA. The SARS-CoV-2 RNA is generally detectable during the acute phase of infection. The Aptima SARS-CoV-2 Assay on the [employer] system is intended for use by laboratory personnel specifically instructed and trained in the operation of the [employer] system. The Aptima SARS-CoV-2 assay is [...] information. Performed By: #### 3 1792 #### [facility] 3000 [facility] [place] [address], [facility] HEMATOCRITon 09-14-2020 Hematocrit (Bld) [Volume fraction] 23.9 % Low 39.0-50.0 [facility] Comment on above: Order Comment: The A ptima SARS-CoV-2 assay is a nucleic acid amplification test intended for the qualitative detection of RNA from SARS-CoV-2 isolated and purified from nasopharyngeal (LIFE INSURANCE SPECIALIST),oropharyngeal (OP), nasal swab, sputum, and bronchoalveolar lavage (BAL) specimens from patients with signs and symptoms of infection who are suspected of COVID-19. Results are for the identification of SARS-CoV-2 RNA. The SARS-CoV-2 RNA is generally detectable during the acute phase of infection. The Aptima SARS-CoV-2 Assay on the [employer] and [employer] system is intended for use by laboratory personnel specifically instructed and trained in the operation of the [employer] system. The Aptima SARS-CoV-2 assay is [...] information. Performed By: #### 3 1792 #### [facility] 3000 [facility] [place] [address], [facility] HEMOGLOBINon 09-14-2020 Hemoglobin (Bld) [Mass/Vol] 8.0 g/dL Low 13.0-17.0 [facility] Comment on above: Order Comment: The A ptima SARS-CoV-2 assay is a nucleic acid amplification test intended for the qualitative detection of RNA from SARS-CoV-2 isolated and purified from nasopharyngeal (LIFE INSURANCE SPECIALIST),oropharyngeal (OP), nasal swab, sputum, and bronchoalveolar lavage (BAL) specimens from patients with signs and symptoms of infection who are suspected of COVID-19. Results are for the identification of SARS-CoV-2 RNA. The SARS-CoV-2 RNA is generally detectable during the acute phase of infection. The Aptima SARS-CoV-2 Assay on the [employer] system is intended for use by laboratory personnel specifically instructed and trained in the operation of the [employer] system. The Aptima SARS-CoV-2 assay is [...] information. Performed By: #### 3 1792 #### [facility] [address] [place] [address], [facility] RBC'S 1 UNITon 09-14-2020 CROSSMATCH INTERP 1 COMP Normal [facility] Comment on above: Order Comment: Montezuma nephrosis, please assess for hydronephrosis resolution Performed By: #### 8 6001 ####[facility] [place] [address], [facility] PRODUCT CODE 1 [id number] Normal [facility] Comment on above: Order Comment: Montezuma nephrosis, please assess for hydronephrosis resolution Performed By: #### 8 6001 ####[facility]3000 [facility] [place] [address], [facility] PRODUCT STATUS 1 PT Normal [facility] Comment on above: Order Comment: Montezuma nephrosis, please assess for hydronephrosis resolution Result Comment: Resu lt changed by IF on 09/14/2020 12:52. The previous value was XM. Result changed by IF on 09/15/2020 00:30. The previous value was IS. Performed By: #### 8 6001 ####[facility] [place] [address], [facility] UNIT ABO 1 A Normal [facility] Comment on above: Order Comment: Montezuma nephrosis, please assess for hydronephrosis resolution Performed By: #### 8 6001 ####[facility] [place] [address], [facility] UNIT ID 1 [id number] Normal [facility] Comment on above: Order Comment: Montezuma nephrosis, please assess for hydronephrosis resolution Performed By: #### 8 6001 ####[facility] [place] [address], [facility] UNIT RH 1 Positive Normal [facility] Comment on above: Order Comment: Montezuma nephrosis, please assess for hydronephrosis resolution Performed By: #### 8 6001 ####[facility] [place] [address], [facility] TYPE AND SCREENon 09-14-2020 ABO INTERPRETATION A Normal [facility] Comment on above: Performed By: #### 3 1509, [id number] #### [facility] [address] [place] [address], [facility] RH INTERPRETATION Positive Normal [facility] Comment on above: Performed By: #### 3 1509, 59669 #### [facility] [address] [place] [address], [facility] US RENALon 09-14-2020 US RENAL [facility] Department of Radiology [address] [place] [id number] ===== Patient Name: CHANO GOMEZ : 1945 Sex: M Age: Race: White Pt. Location: [address] [place] [address] Patient Status: I Ordered Date: 09/14/2020 7:30:00 [...] catheter. Electronically signed: NA MCCALLUM. Transcribed by: [email or web address], User Resident: Electronically Signed by: NA MCCALLUM @ 09/14/2020 12:52 PM Normal [facility] Comment on above: Order Comment: [place] nephrosis, please assess for hydronephrosis resolution BASIC METABOLIC PANELon 09-03 Calcium [Mass/Vol] 8.5 mg/dL Low 8.6-10.3 [facility] Comment on above: Order Comment: No: D o not add to previous draw Performed By: #### 0 0071 ####[facility] [place] [address] [address], [facility] Chloride [Moles/Vol] 103 mmol/L Normal 98-107 [facility] Comment on above: Order Comment: No: D o not add to previous draw Performed By: #### 0 0071 ####[facility] [place] [address], [place] CO2 [Moles/Vol] 24 mmol/L Normal 21-31 [facility] Comment on above: Order Comment: No: D o not add to previous draw Performed By: #### 0 0071 ####[facility] [facility] [place] [address], [facility] Creatinine [Mass/Vol] 7.51 mg/dL High 0.70-1.30 [facility] Comment on above: Order Comment: No: D o not add to previous draw Performed By: #### 0 0071 ####[facility] [facility] [address], [facility] GFR/1.73 sq M predicted among blacks MDRD (S/P/Bld) [Vol rate/Area] 9 ml/min/1.73sq m Abnormal >60 [facility] Comment on above: Order Comment: No: D o not add to previous draw Result Comment: Calc ulation may not be valid for patients over 70 years Performed By: #### 0 0071 ####[facility] [place] [address], [place] GFR/1.73 sq M predicted among non-blacks MDRD (S/P/Bld) [Vol rate/Area] 7 ml/min/1.73sq m Abnormal >60 [facility] Comment on above: Order Comment: No: D o not add to previous draw Result Comment: Calc ulation may not be valid for patients over 70 years Performed By: #### 0 0071 ####[facility] [place] [address], [place] Glucose [Mass/Vol] 102 mg/dL High 70-100 [facility] Comment on above: Order Comment: No: D o not add to previous draw Performed By: #### 0 0071 ####[facility] [place] [address], [facility] Potassium [Moles/Vol] 3.4 mmol/L Low 3.5-5.1 [facility] Comment on above: Order Comment: No: D o not add to previous draw Performed By: #### 0 0071 ####[facility]3000 [facility] [place] [address], [facility] Sodium [Moles/Vol] 137 mmol/L Normal 136-145 [facility] Comment on above: Order Comment: No: D o not add to previous draw Performed By: #### 0 0071 ####[facility]3000 [facility].[address] Urea nitrogen [Mass/Vol] 74 mg/dL High 7-25 [facility] Comment on above: Order Comment: No: D o not add to previous draw Performed By: #### 0 0071 ####[facility]3000 [facility].[address] BMPon 09-13-2020 Urea nitrogen [Mass/Vol] 93 mg/dL Abnormal 5-21 [facility] Comment on above: Result Comment: Crit ical Result [id number] Called to JONATHAN CASE AT ER by VICENTA DOWNS And Read Back For Confirmation at: 09/10/2020 10:55:01 Results Verified By Repeat Analysis. Performed By: #### 2 [id number], [id number], [id number], [id number], [id number], [id number], [id number], [id number], [id number], [id number], [id number], [id number], [id number], [id number] ####[facility] [id number] [place] [address] CBC COMPLETE BLOOD COUNTon 1 11-13-2019 Erythrocyte distribution width (RBC) [Ratio] 15.9 % High 11.5-15.0 [facility] Comment on above: Order Comment: No: D o not add to previous draw Performed By: #### 1 0008 #### [facility] [address] [place] [address], [facility] Hematocrit (Bld) [Volume fraction] 21.6 % Low 39.0-50.0 [facility] Comment on above: Order Comment: No: D o not add to previous draw Performed By: #### 1 0008 #### [facility] [address] [place] [address], [facility] Hemoglobin (Bld) [Mass/Vol] 7.3 g/dL Low 13.0-17.0 [facility] Comment on above: Order Comment: No: D o not add to previous draw Performed By: #### 1 0008 #### [facility] [address] [place] [address], [facility] MCH (RBC) [Entitic mass] 31.6 pg Normal 27.0-33.0 [facility] Comment on above: Order Comment: No: D o not add to previous draw Performed By: #### 1 0008 #### [facility] [address] [place] [address], [facility] MCHC (RBC) [Mass/Vol] 33.8 g/dL Normal 32.0-35.0 [facility] Comment on above: Order Comment: No: D o not add to previous draw Performed By: #### 1 0008 #### [facility] [address] [place] [address], [facility] MCV (RBC) [Entitic vol] 93.5 fL Normal 82.0-98.0 [facility] Comment on above: Order Comment: No: D o not add to previous draw Performed By: #### 1 0008 #### [facility] [address] [place] [address], [facility] Nucleated RBC/100 WBC (Bld) [Ratio] 0 % Normal 0-0 [facility] Comment on above: Order Comment: No: D o not add to previous draw Performed By: #### 1 0008 #### [facility] [address] [place] [address], [facility] PLAT CNT 186 10*3/uL Normal 150-400 [facility] Comment on above: Order Comment: No: D o not add to previous draw Performed By: #### 1 0008 #### [facility] [address] [place] [address], [facility] RBC (Bld) [#/Vol] 2.31 10*6/uL Low 4.20-5.70 [facility] Comment on above: Order Comment: No: D o not add to previous draw Performed By: #### 1 0008 #### [facility] [address] [place] [address], [facility] WBC (Bld) [#/Vol] 4.43 10*3/uL Normal 4.00-10.60 [facility] Comment on above: Order Comment: No: D o not add to previous draw Performed By: #### 1 0008 #### [facility] [address] [place] [address], [facility] *URINE CATH CULTUREon 2019 *URINE CATH CULTURE Clinical Report: (D) Specimen/Source: URINE/CATHETER BERNAL Collected: 09/12/2020 12:16 Status: Final Last Updated: 09/15/2020 09:31 CULT RES (Final) NO GROWTH 48 HOURS Normal [facility] Comment on above: Performed By: #### 3 0478 #### [facility] [address] [place] [address], [facility] BASIC METABOLIC PANELon - Calcium [Mass/Vol] 8.5 mg/dL Low 8.6-10.3 [facility] Comment on above: Order Comment: No: D o not add to previous draw Performed By: #### 5 6101 #### [facility] [address] [place] [address], [place] Chloride [Moles/Vol] 103 mmol/L Normal 98-107 [facility] Comment on above: Order Comment: No: D o not add to previous draw Performed By: #### 5 6101 #### [facility] [address] [place] [address], [place] CO2 [Moles/Vol] 25 mmol/L Normal 21-31 [facility] Comment on above: Order Comment: No: D o not add to previous draw Performed By: #### 5 6101 #### [facility] [address] [place] [address], [place] Creatinine [Mass/Vol] 8.48 mg/dL High 0.70-1.30 [facility] Comment on above: Order Comment: No: D o not add to previous draw Performed By: #### 5 6101 #### [facility] [address] [place] [address], [place] GFR/1.73 sq M predicted among blacks MDRD (S/P/Bld) [Vol rate/Area] 7 ml/min/1.73sq m Abnormal >60 [facility] Comment on above: Order Comment: No: D o not add to previous draw Result Comment: Calc ulation may not be valid for patients over 70 years Performed By: #### 5 6101 #### [facility] [address] [place] [address], [place] GFR/1.73 sq M predicted among non-blacks MDRD (S/P/Bld) [Vol rate/Area] 6 ml/min/1.73sq m Abnormal >60 [facility] Comment on above: Order Comment: No: D o not add to previous draw Result Comment: Calc ulation may not be valid for patients over 70 years Performed By: #### 5 6101 #### [facility] [address] [place] [address], [place] Glucose [Mass/Vol] 103 mg/dL High 70-100 [facility] Comment on above: Order Comment: No: D o not add to previous draw Performed By: #### 5 6101 #### [facility] [address] [place] [address], [facility] Potassium [Moles/Vol] 3.5 mmol/L Normal 3.5-5.1 [facility] Comment on above: Order Comment: No: D o not add to previous draw Performed By: #### 5 6101 #### [facility] [address] [place] [address], [facility] Sodium [Moles/Vol] 141 mmol/L Normal 136-145 [facility] Comment on above: Order Comment: No: D o not add to previous draw Performed By: #### 5 6101 #### [facility] [address] [place] [address], [facility] Urea nitrogen [Mass/Vol] 85 mg/dL High 7-25 [facility] Comment on above: Order Comment: No: D o not add to previous draw Performed By: #### 5 6101 #### [facility] [address] [place] [address], [facility] CBC COMPLETE BLOOD COUNTon 11-12-2019 Erythrocyte distribution width (RBC) [Ratio] 15.8 % High 11.5-15.0 [facility] Comment on above: Order Comment: No: D o not add to previous draw Performed By: #### 3 0478 #### [facility] [address] [place] [address], [facility] Hematocrit (Bld) [Volume fraction] 23.6 % Low 39.0-50.0 [facility] Comment on above: Order Comment: No: D o not add to previous draw Performed By: #### 3 0478 #### [facility] [address] [place] [address], [facility] Hemoglobin (Bld) [Mass/Vol] 7.8 g/dL Low 13.0-17.0 [facility] Comment on above: Order Comment: No: D o not add to previous draw Performed By: #### 3 0478 #### [facility] [address] [place] [address], [facility] MCH (RBC) [Entitic mass] 31.3 pg Normal 27.0-33.0 [facility] Comment on above: Order Comment: No: D o not add to previous draw Performed By: #### 3 0478 #### [facility] [address] [place] [id number], [facility] MCHC (RBC) [Mass/Vol] 33.1 g/dL Normal 32.0-35.0 [facility] Comment on above: Order Comment: No: D o not add to previous draw Performed By: #### 3 0478 #### [facility] [address] [place] [address], [facility] MCV (RBC) [Entitic vol] 94.8 fL Normal 82.0-98.0 [facility] Comment on above: Order Comment: No: D o not add to previous draw Performed By: #### 3 0478 #### [facility] [address] [place] [address], [facility] Nucleated RBC/100 WBC (Bld) [Ratio] 0 % Normal 0-0 [facility] Comment on above: Order Comment: No: D o not add to previous draw Performed By: #### 3 0478 #### [facility] [address] [place] [address], [facility] PLAT CNT 176 10*3/uL Normal 150-400 [facility] Comment on above: Order Comment: No: D o not add to previous draw Performed By: #### 3 0478 #### [facility] [address] [facility] [place] [address], [facility] RBC (Bld) [#/Vol] 2.49 10*6/uL Low 4.20-5.70 [facility] Comment on above: Order Comment: No: D o not add to previous draw Performed By: #### 3 0478 #### [facility] [address] [place] [address], [facility] WBC (Bld) [#/Vol] 5.72 10*3/uL Normal 4.00-10.60 [facility] Comment on above: Order Comment: No: D o not add to previous draw Performed By: #### 3 0478 #### [facility] [address] [place] [address], [facility] MAGNESIUM BLOODon 09-12-2020 Magnesium [Mass/Vol] 2.0 mg/dL Normal 1.9-2.7 [facility] Comment on above: Order Comment: No: D o not add to previous draw Performed By: #### 5 6101 #### [facility] [address] [place] [address], [facility] URINALYSIS REFLEXon 09-12-20 20 Appearance (U) CLEAR Normal CLEAR [facility] Comment on above: Order Comment: [place] nephrosis, please assess for hydronephrosis resolution Performed By: #### 3 0965 ####[facility] [place] [address], [facility] Bilirubin [Mass/Vol] Negative Normal NEGATIVE [facility] Comment on above: Order Comment: [place] nephrosis, please assess for hydronephrosis resolution Performed By: #### 3 0965 ####[facility] [place] [address], [facility] BLOOD LARGE Abnormal NEGATIVE [facility] Comment on above: Order Comment: [place] nephrosis, please assess for hydronephrosis resolution Performed By: #### 3 0965 ####[facility] [place] [address], [place] Color (U) STRAW Abnormal YELLOW [facility] Comment on above: Order Comment: [place] nephrosis, please assess for hydronephrosis resolution Performed By: #### 3 0965 ####[facility] [place] [address], [place] EPIS NONE SEEN Normal FEW,OCC,NON E SEEN [facility] Comment on above: Order Comment: [place] nephrosis, please assess for hydronephrosis resolution Performed By: #### 3 0965 ####[facility] [place] [address], [facility] Glucose [Mass/Vol] 50 mg/dL Abnormal NEGATIVE [facility] Comment on above: Order Comment: [place] nephrosis, please assess for hydronephrosis resolution Performed By: #### 3 0965 ####[facility] [place] [address], [facility] KETONE Negative Normal NEGATIVE [facility] Comment on above: Order Comment: [place] nephrosis, please assess for hydronephrosis resolution Performed By: #### 3 0965 ####[facility] [place] [address], [facility] LEUK DEJAH SMALL Abnormal NEGATIVE [facility] Comment on above: Order Comment: [place] nephrosis, please assess for hydronephrosis resolution Performed By: #### 3 0965 ####[facility] [place] [address], [facility] Nitrite Ql (U) Negative Normal NEGATIVE [facility] Comment on above: Order Comment: [place] nephrosis, please assess for hydronephrosis resolution Performed By: #### 3 0965 ####[facility] [place] [address], [facility] pH (Bld) 7.0 Normal 5.0-8.0 [facility] Comment on above: Order Comment: [place] nephrosis, please assess for hydronephrosis resolution Performed By: #### 3 0965 ####[facility] [place] [address], [facility] Protein (U) [Mass/Vol] 30 mg/dL Abnormal NEGATIVE Th e [facility] Comment on above: Order Comment: [place] nephrosis, please assess for hydronephrosis resolution Performed By: #### 3 0965 ####[facility] RBC (U) [#/Vol] 51-100 Abnormal NONE SEEN The [facility] Comment on above: Order Comment: [place] nephrosis, please assess for hydronephrosis resolution Performed By: #### 3 0965 ####[facility] SPEC GRAV 1.008 Low 1.015-1.020 [facility] Comment on above: Order Comment: [place] nephrosis, please assess for hydronephrosis resolution Performed By: #### 3 0965 ####[facility] [facility] WBC UA 6-10 Abnormal NONE SEEN The [facility] Comment on above: Order Comment: [place] nephrosis, please assess for hydronephrosis resolution Performed By: #### 3 0965 ####[facility] BASIC METABOLIC PANELon 11-0 9-2020 Calcium [Mass/Vol] 8.6 mg/dL Normal 8.6-10.3 [facility] Comment on above: Order Comment: [place] nephrosis, please assess for hydronephrosis resolution Performed By: #### 4 999, 12314, [address]3057 ####[facility] Chloride [Moles/Vol] 103 mmol/L Normal 98-107 [facility] Comment on above: Order Comment: [place] nephrosis, please assess for hydronephrosis resolution Performed By: #### 4 1000, 62754, [address]43 ####[facility] [facility] [place] [address], [facility] CO2 [Moles/Vol] 23 mmol/L Normal 21-31 [facility] Comment on above: Order Comment: Montezuma nephrosis, please assess for hydronephrosis resolution Performed By: #### 4 1000, 65844, 91539 ####[facility] [place] [address], [place] Creatinine [Mass/Vol] 9.15 mg/dL Critically high 0.70-1.30 [facility] Comment on above: Order Comment: Montezuma nephrosis, please assess for hydronephrosis resolution Performed By: #### 4 1000, 31795, 87946 ####[facility] [place] [address], [facility] GFR/1.73 sq M predicted among blacks MDRD (S/P/Bld) [Vol rate/Area] 7 ml/min/1.73sq m Abnormal >60 The [facility] Comment on above: Order Comment: Montezuma nephrosis, please assess for hydronephrosis resolution Result Comment: Calc ulation may not be valid for patients over 70 years Performed By: #### 4 999, 24788, 14135 ####[facility] [place] [address], [facility] GFR/1.73 sq M predicted among non-blacks MDRD (S/P/Bld) [Vol rate/Area] 6 ml/min/1.73sq m Abnormal >60 The [facility] Comment on above: Order Comment: Montezuma nephrosis, please assess for hydronephrosis resolution Result Comment: Calc ulation may not be valid for patients over 70 years Performed By: #### 4 1000, 59716, 34677 ####[facility] [place] [address], [place] Glucose [Mass/Vol] 136 mg/dL High 70-100 [facility] Comment on above: Order Comment: Montezuma nephrosis, please assess for hydronephrosis resolution Performed By: #### 4 1000, 67566, 26728 ####[facility] [place] [address], [place] Potassium [Moles/Vol] 4.0 mmol/L Normal 3.5-5.1 [facility] Comment on above: Order Comment: Montezuma nephrosis, please assess for hydronephrosis resolution Performed By: #### 4 1000, 60400, 43128 ####[facility] [facility].[address] Sodium [Moles/Vol] 139 mmol/L Normal 136-145 [facility] Comment on above: Order Comment: Montezuma nephrosis, please assess for hydronephrosis resolution Performed By: #### 4 1000, 30798, 78203 ####[facility].[address] Urea nitrogen [Mass/Vol] 97 mg/dL High 7-25 [facility] Comment on above: Order Comment: Montezuma nephrosis, please assess for hydronephrosis resolution Performed By: #### 4 1000, 84029, 72842 ####[facility].[address] CBC W/DIFFon 09-11-2020 ABS BASOPHILS 0.0 10*3/uL Normal 0.0-0.2 [facility] Comment on above: Order Comment: No: D o not add to previous draw Performed By: #### 5 0103 #### [facility] [address] [facility] [place] [address], [facility] ABS IMM GRANS 0.0 10*3/uL Normal 0.0-0.2 [facility] Comment on above: Order Comment: No: D o not add to previous draw Performed By: #### 5 0103 #### [facility] [address] [facility] [place] [address], [facility] ABS NEUTROPHILS 4.4 10*3/uL Normal 1.6-7.6 [facility] Comment on above: Order Comment: No: D o not add to previous draw Performed By: #### 5 0103 #### [facility] [address] [facility] [place] [address], [facility] Basophils/100 WBC (Bld) 0.2 % Normal 0.0-1.0 [facility] Comment on above: Order Comment: No: D o not add to previous draw Performed By: #### 5 0103 #### [facility] [address] [place] [address], [facility] Eosinophils (Bld) [#/Vol] 0.0 10*3/uL Normal 0.0-0.5 [facility] Comment on above: Order Comment: No: D o not add to previous draw Performed By: #### 5 0103 #### [facility] [address] [place] [address], [facility] Eosinophils/100 WBC (Bld) 0.2 % Normal 0.0-6.0 [facility] Comment on above: Order Comment: No: D o not add to previous draw Performed By: #### 5 0103 #### [facility] [address] Erythrocyte distribution width (RBC) [Ratio] 15.7 % High 11.5-15.0 The [facility] Comment on above: Order Comment: No: D o not add to previous draw Performed By: #### 5 0103 #### [facility] [address] [facility] [place] [address], [facility] Hematocrit (Bld) [Volume fraction] 21.2 % Low 39.0-50.0 [facility] Comment on above: Order Comment: No: D o not add to previous draw Performed By: #### 5 0103 #### [facility] [address] [facility] [place] [address], [facility] Hemoglobin (Bld) [Mass/Vol] 7.3 g/dL Low 13.0-17.0 [facility] Comment on above: Order Comment: No: D o not add to previous draw Performed By: #### 5 0103 #### [facility] [address] [place] [address], [facility] IMMATURE GRANS 0.2 % Normal 0.0-1.0 [facility] Comment on above: Order Comment: No: D o not add to previous draw Performed By: #### 5 0103 #### [facility] [address] [place] [address], [facility] Lymphocytes (Bld) [#/Vol] 0.7 10*3/uL Low 1.2-4.0 [facility] Comment on above: Order Comment: No: D o not add to previous draw Performed By: #### 5 0103 #### [facility] [address] [facility] [place] [address], [facility] Lymphocytes/100 WBC (Bld) 13.2 % Low 20.0-45.0 [facility] Comment on above: Order Comment: No: D o not add to previous draw Performed By: #### 5 0103 #### [facility] [address] [place] [address], [facility] MCH (RBC) [Entitic mass] 31.7 pg Normal 27.0-33.0 [facility] Comment on above: Order Comment: No: D o not add to previous draw Performed By: #### 5 0103 #### [facility] [address] MCHC (RBC) [Mass/Vol] 34.4 g/dL Normal 32.0-35.0 [facility] Comment on above: Order Comment: No: D o not add to previous draw Performed By: #### 5 0103 #### [facility] [address] [facility] [place] [address], [facility] MCV (RBC) [Entitic vol] 92.2 fL Normal 82.0-98.0 [facility] Comment on above: Order Comment: No: D o not add to previous draw Performed By: #### 5 0103 #### [facility] [address] [place] [address], [facility] Monocytes (Bld) [#/Vol] 0.2 10*3/uL Normal 0.1-1.0 [facility] Comment on above: Order Comment: No: D o not add to previous draw Performed By: #### 5 0103 #### [facility] [address] [place] [address], [facility] MONOS 4.3 % Low 5.0-12.0 [facility] Comment on above: Order Comment: No: D o not add to previous draw Performed By: #### 5 0103 #### [facility] [address] [place] [address], [facility] Neutrophils/100 WBC (Bld) 81.9 % High 40.0-72.0 [facility] Comment on above: Order Comment: No: D o not add to previous draw Performed By: #### 5 0103 #### [facility] [address] [place] [address], [facility] Nucleated RBC/100 WBC (Bld) [Ratio] 0 % Normal 0-0 [facility] Comment on above: Order Comment: No: D o not add to previous draw Performed By: #### 5 0103 #### [facility] [address] [place] [address], [place] PLAT CNT 167 10*3/uL Normal 150-400 [facility] Comment on above: Order Comment: No: D o not add to previous draw Performed By: #### 5 0103 #### [facility] [address] [place] [address], [facility] RBC (Bld) [#/Vol] 2.30 10*6/uL Low 4.20-5.70 [facility] Comment on above: Order Comment: No: D o not add to previous draw Performed By: #### 5 0103 #### [facility] [address] [place] [address], [place] WBC (Bld) [#/Vol] 5.32 10*3/uL Normal 4.00-10.60 [facility] Comment on above: Order Comment: No: D o not add to previous draw Performed By: #### 5 0103 #### [facility] [address] [place] [address], [facility] CREATININE URINE RANDOMon Creatinine [Mass/Vol] 56.0 mg/dL Normal The [facility] Comment on above: Order Comment: No: D o not add to previous draw Result Comment: Ther e are no established reference values for random urine specimens Performed By: #### 5 6101 #### [facility] [address] [place] [address], [facility] Coding Summary.on 09-11-2020 Coding Summary. CODING DATE: 020 FINAL [facility] STATUS: Short-Term Hosp as IP PAYOR: [...] Revised Date Saved: 09/11/2020 01:43 pm Normal [facility] Consent for Blood Transfusio non 09-11-2020 Consent for Blood Transfusion [id number]#[id number] CD:127 Normal [facility] Consultationon 09-11-2020 Consultation MR#: [id number] [facility] Pt. Name: Chano Gomez Date of Service: 09/11/2020 Room #: 4AB [id number] Birthdate: 1945 Referring Physician: CONSULTATION ATTENDING PHYSICIAN: [...] A/Tone Travis MD Date Trans: 09/11/2020 09:42 A/mmo DN_JN:[id number] Normal [facility] ED Traumaon 09-11-2020 ED Trauma [id number]#[id number] CD:127 Normal [facility] EMS Documentationon 09-11-20 20 EMS Documentation [id number]#1.00 CD:127 Normal [facility] FERRITINon 09-11-2020 Ferritin [Mass/Vol] 285 ng/mL Normal 24-336 [facility] Comment on above: Performed By: #### 8 4046, 30162, 50289, 94969, 30737 ####[facility] [place] [address], [facility] FOLATE SERUMon 09-11-2020 Folate [Mass/Vol] 14.64 ng/mL Normal 6.60-1000. 0 0 [facility] Comment on above: Result Comment: Norm al range reflects World Health Organization International Standard /178 Performed By: #### 8 4046, 52654, 76429, 53639, 82730 ####[facility] [facility] [place] [address], [facility] HAPTOGLOBINon 09-11-2020 HAPTOGLOBIN 30 mg/dL Normal 26-164 [facility] Comment on above: Order Comment: Yes: Add to Previous draw if able Performed By: #### 3 7639, 76856 #### [facility] [address] [place] [address], [facility] HEMOGLOBINon 09-11-2020 Hemoglobin (Bld) [Mass/Vol] 7.7 g/dL Low 13.0-17.0 [facility] Comment on above: Order Comment: No: D o not add to previous draw Performed By: #### 1 0008 #### [facility] [address] [place] [address], [place] Hemoglobin (Bld) [Mass/Vol] 7.0 g/dL Low 13.0-17.0 [facility] Comment on above: Order Comment: The A ptima SARS-CoV-2 assay is a nucleic acid amplification test intended for the qualitative detection of RNA from SARS-CoV-2 isolated and purified from nasopharyngeal (LIFE INSURANCE SPECIALIST),oropharyngeal (OP), nasal swab, sputum, and bronchoalveolar lavage (BAL) specimens from patients with signs and symptoms of infection who are suspected of COVID-19. Results are for the identification of SARS-CoV-2 RNA. The SARS-CoV-2 RNA is generally detectable during the acute phase of infection. The Aptima SARS-CoV-2 Assay on the [employer] Fusion system is intended for use by laboratory personnel specifically instructed and trained in the operation of the [employer] and [employer] Fusion system. The Aptima SARS-CoV-2 assay is [...] information. Performed By: #### 3 1792 #### [facility] [address] Hemoglobin (Bld) [Mass/Vol] 7.4 g/dL Low 13.0-17.0 [facility] Comment on above: Order Comment: No: D o not add to previous draw Performed By: #### 3 0478 #### [facility] [address] Hemoglobin (Bld) [Mass/Vol] 8.0 g/dL Low 13.0-17.0 [facility] Comment on above: Order Comment: No: D o not add to previous draw Performed By: #### 3 1509, 81295 #### [facility] [address] LDH BLOODon 09-11-2020 LDH 217 Units/L Normal 140-271 [facility] Comment on above: Order Comment: Yes: Add to Previous draw if able Performed By: #### 8 4046, 90044, 92689, 43314, 05281 ####[facility] [facility] [place] [address], [facility] MAGNESIUM BLOODon 09-11-2020 Magnesium [Mass/Vol] 2.1 mg/dL Normal 1.9-2.7 [facility] Comment on above: Order Comment: Montezuma nephrosis, please assess for hydronephrosis resolution Performed By: #### 4 1000, 46034, 63042 ####[facility] [facility] [place] [address], [facility] PHOSPHORUS BLOODon 0 Phosphate [Mass/Vol] 6.4 mg/dL High 2.5-5.0 [facility] Comment on above: Order Comment: No: D o not add to previous draw Performed By: #### 4 1000, 04340, 87697 ####[facility] [facility] [place] [address], [facility] Path. Reviewon 09-11-2020 Path Review Anemia with no incre ase of reticulocytes. [facility] Comment on above: Order Comment: Order Added by Discern Expert. Performed By: #### 2 539686, 63518115, 3888980, 9829721, 6677609, 8122617, 6776803, 1317396, 0366728, 94041030, 9898091, 09157603, 78766498, 9099611 ####[facility] [id number] [place] [address] RETICULOCYTE PANELon 020 ABSOLUTE RETICULOCYTE 0.0425 10*6/uL Normal 0.02 50-0.10 00 [facility] Comment on above: Performed By: #### 3 1509, 06778 #### [facility] [address] [place] [address], [facility] IMMATURE RETICULOCYTE FRACTION 9.3 % Normal 2.0-16.0 [facility] Comment on above: Performed By: #### 3 1509, 03326 #### [facility] [address] [place] [address], [facility] RETIC COUNT 1.64 % Normal 0.50-1.80 [facility] Comment on above: Performed By: #### 3 1509, 65141 #### [facility] [address] [place] [address], [facility] RETICULOCYTE HEMOGLOBIN 37.3 pg High 28.0-36.0 [facility] Comment on above: Performed By: #### 3 1509, 93191 #### [facility] [address] SODIUM URINE RANDOMon 2019 Sodium (U) [Moles/Vol] 66 mmol/L Normal Th e [facility] Comment on above: Order Comment: No: D o not add to previous draw Result Comment: Ther e are no established reference values for random urine specimens Performed By: #### 5 0608 #### [facility] [address] [facility] [place] [address], [facility] T PROT UR Kayden 09-11-2020 Protein [Mass/Vol] 400.0 mg/dL Normal [facility] Comment on above: Order Comment: No: D o not add to previous draw Result Comment: Ther e are no established reference values for random urine specimens Performed By: #### 5 6101 #### [facility] [address] [facility] [address] TIBC- INCLUDES IRONon 2019 FE SATURATION 20 % Normal 20-50 [facility] Comment on above: Performed By: #### 8 4046, 11385, 13107, 58932, 58023 ####[facility] [facility] Iron [Mass/Vol] 52 ug/dL Normal 50-212 [facility] Comment on above: Performed By: #### 8 4046, 60666, 60787, 78798, 68235 ####[facility] [place] [address], [facility] TIBC 258 mcg/dL Normal 250-450 [facility] Comment on above: Performed By: #### 8 4046, 88837, 65688, 78164, 73511 ####[facility] [place] [address], [facility] UIBC 206 mcg/dL Normal 155-355 [facility] Comment on above: Performed By: #### 8 4046, 99224, 22400, 26829, 32950 ####[facility] [facility].[address] US RENALon 09-11-2020 RENAL [facility] Department of Radiology [address] [id number] ===== Patient Name: CHANO GOMEZ : 1945 Sex: M Age: Race: White Pt. Location: [address] [place] [address] Patient Status: I Ordered Date: 09/11/2020 2:00:00 [...] bladder. Electronically signed: Harinder Mancilla. Transcribed by: [email or web address], User Resident: Electronically Signed by: HARINDER MANCILLA @ 09/11/2020 12:14 PM Normal [facility] Comment on above: Order Comment: Montezuma nephrosis, please assess for hydronephrosis resolution VITAMIN B12on 09-11-2020 Cobalamin (Vitamin B12) [Mass/Vol] 356 pg/mL Normal 180-914 [facility] Comment on above: Result Comment: REFE RENCE RANGES: 180-914 pg/mL Normal 145-179 pg/mL Indeterminate <145 pg/mL Deficient Performed By: #### 8 4046, 69961, 81780, 58842, 05803 ####[place] [address] *SARS-CoV-2 COVID-19on 09-10 [id number] Not Detected Normal Not Detected [facility] Comment on above: Order Comment: The A ptima SARS-CoV-2 assay is a nucleic acid amplification testintended for the qualitative detection of RNA from SARS-CoV-2 isolatedand purified from nasopharyngeal (LIFE INSURANCE SPECIALIST),oropharyngeal (OP), nasal swab,sputum, and bronchoalveolar lavage (BAL) specimens from patients withsigns and symptoms of infection who are suspected of COVID-19.Results are for the identification of SARS-CoV-2 RNA. The SARS-CoV-2 RNAis generally detectable during the acute phase of infection.The Aptima SARS-CoV-2 Assay on the [employer] system isintended for use by laboratory personnel specifically instructed andtrained in the operation of the [employer] system. TheAptima SARS-CoV-2 assay is only [...] information. Performed By: #### 1 0008 #### [facility] [address] [place] [address], [facility] ABO/Rhon 09-10-2020 ABO/Rh Positive [facility] Comment on above: Performed By: #### 1 [id number], [id number], 1774796, 62508470 #### [facility] Laboratory [address] [place] [address] ABO/Rh History Checkon 09-10 ABO/Rh History Check Type verified by se cond s Normal [facility] Comment on above: Performed By: #### 1 1231721, 24506809, 0704719, 07828415 ####[facility] [address] [place] [address] ABO/Rh Retypeon 09-10-2020 ABO/Rh Retype Interp Positive [facility] Comment on above: Performed By: #### 1 [id number] ####[facility] [address] [place] [address] ABSCon 09-10-2020 ABSC Gel Interp Negative Normal [facility] Comment on above: Performed By: #### 1 1799994, 31424376, 3728207, 03617182 ####[facility] [address] [place] [address] APTTon 09-10-2020 aPTT Coag (Bld) [Time] 27.3 s Normal 25.0-35.0 Th e [facility] Comment on above: Result Comment: ALL RESULTS [...] THIS PURPOSE. Performed By: #### 3 1509, 25094 #### [facility] [address] [place] [address], [facility] Auto Diffon 09-10-2020 Basophils/100 WBC (Bld) 0.8 % Normal 0.0-2.0 [facility] Comment on above: Order Comment: Order Added by Discern Expert. Performed By: #### 2 654454, 06122897, 4309001, 6463246, 7265478, 5017879, 1551981, 6681953, 6737902, 44514506, 9771598, 25757496, 71808813, 0913376 ####[facility] [address] [place] [address] Basophils/Leukocytes Auto (Bld) [Pure # fraction] 0.1 E9/L Normal 0.0-0.2 [facility] Comment on above: Order Comment: Order Added by Discern Expert. Performed By: #### 2 465985, 20072468, 3487563, 7552253, 1740728, 3170453, 2600191, 2624219, 4121686, 73682118, 3161896, 56077893, 02836541, 2408366 ####[facility] [address] [place] [address] Eosinophils/100 WBC (Bld) 1.7 % Normal 0.0-8.0 [facility] Comment on above: Order Comment: Order Added by Discern Expert. Performed By: #### 2 540490, 88902680, 7085083, 5910302, 1609953, 2094277, 3717038, 9148162, 4429161, 40411314, 9788633, 29730990, 20870966, 9878789 ####[facility] [address] [place] [address] Eosinophils/Leukocytes Auto (Bld) [Pure # fraction] 0.1 E9/L Normal 0.0-0.5 [facility] Comment on above: Order Comment: Order Added by Discern Expert. Performed By: #### 2 760257, 45539847, 1744849, 9611141, 8397130, 1919238, 9743127, 8747568, 7563158, 88700484, 9936007, 70093799, 65088037, 1309393 ####[place] [address] [place] [address] Lymphocytes/100 WBC (Bld) 34.8 % Normal 14.0-50.0 [facility] Comment on above: Order Comment: Order Added by Discern Expert. Performed By: #### 2 163842, 65145597, 8253374, 1682066, 1645334, 7904967, 5207131, 1599687, 7077282, 32370907, 8999002, 43659884, 01588219, 9348793 ####[place] [address] [place] [address] Lymphocytes/Leukocytes Auto (Bld) [Pure # fraction] 2.2 E9/L Normal 1.0-4.0 [facility] Comment on above: Order Comment: Order Added by Discern Expert. Performed By: #### 2 856442, 91732959, 7177652, 0723748, 4410343, 5768681, 4979648, 7461027, 4614400, 07702593, 3858026, 04958061, 18238087, 4741647 ####[facility] [address] [place] [address] Monocytes/100 WBC (Bld) 4.9 % Normal 4.0-14.0 [facility] Comment on above: Order Comment: Order Added by Discern Expert. Performed By: #### 2 983502, 97171850, 4544305, 6905768, 5510628, 3391581, 9474219, 6489322, 5766143, 53784554, 4650939, 58425492, 37115518, 1828946 ####[facility] [address] [place] [address] Monocytes/Leukocytes Auto (Bld) [Pure # fraction] 0.3 E9/L Normal 0.2-1.0 [facility] Comment on above: Order Comment: Order Added by Discern Expert. Performed By: #### 2 426022, 36961529, 3904025, 0912634, 1245558, 4135250, 1373650, 2172415, 3707636, 11782348, 4417629, 67488466, 28895966, 3074568 ####[facility] [address] [place] [address] Neutrophils/100 WBC (Bld) 57.8 % Normal 36.0-75.0 [facility] Comment on above: Order Comment: Order Added by Discern Expert. Performed By: #### 2 645008, 24118716, 4013465, 6650312, 6396157, 6454986, 4183301, 6513338, 6734982, 54202040, 6762385, 11717163, 42709611, 8622840 ####[facility] [address] [place] [address] Neutrophils/Leukocytes Auto (Bld) [Pure # fraction] 3.6 E9/L Normal 2.0-7.5 [facility] Comment on above: Order Comment: Order Added by Discern Expert. Performed By: #### 2 370754, 77737403, 3511924, 6729510, 8508464, 8886350, 9391404, 0463025, 8179088, 16479753, 3756623, 88243493, 45642002, 2399514 ####[facility] [address] [place] [address] BMPon 09-10-2020 Urea nitrogen/Creatinine [Mass ratio] #syntax# 10-20 [facility] Comment on above: Performed By: #### 2 548436, 22088979, 9753668, 1201809, 6803024, 4984348, 5351236, 6433203, 3351839, 64926319, 8134612, 17135518, 00486877, 4462460 ####[facility] [address] [place] [address] Calcium [Mass/Vol] 9.0 mg/dL Normal 8.9-11.1 [facility] Comment on above: Performed By: #### 2 296696, 64691583, 0298818, 5703969, 6077667, 5976512, 2486105, 8442847, 1040119, 18968579, 9962273, 06187610, 62616130, 5339274 ####[facility] [address] [place] [address] Glucose [Mass/Vol] 167 mg/dL Normal 55-199 [facility] Comment on above: Result Comment: If t his glucose result represents a fasting glucose, interpretation should refer to the following reference range: 55-99 mg/dL Performed By: #### 2 668948, 26890532, 1123984, 4838744, 8965970, 0627715, 5847708, 8839020, 0567693, 03743948, 8326853, 19057261, 19444282, 1856180 ####[facility] [address] [place] [address] Chloride [Moles/Vol] 104 mmol/L Normal 101-111 [facility] Comment on above: Performed By: #### 2 761190, 01208114, 3588888, 6542229, 9444673, 2649862, 7105131, 0968300, 6959520, 98829538, 9187335, 90474831, 46683077, 6172246 ####[facility] [address] [place] [address] Potassium [Moles/Vol] 4.1 mmol/L Normal 3.5-5.3 [facility] Comment on above: Performed By: #### 2 575331, 16732398, 3580896, 4840619, 0225031, 2776149, 9651232, 1879607, 0421665, 65707845, 5551825, 34534346, 91961297, 1226705 ####[facility] [address] [place] [address] Sodium [Moles/Vol] 134 mmol/L Low 135-145 [facility] Comment on above: Performed By: #### 2 320869, 89912938, 9652744, 7888040, 7863081, 0860380, 7679261, 1131117, 1841116, 17061878, 8761354, 90097312, 75492968, 3468144 ####[facility] [address] [place] [address] Anion gap [Moles/Vol] 21 mmol/L High 6-16 [facility] Comment on above: Performed By: #### 2 812240, 44826038, 2493106, 0137395, 7625512, 8014231, 5223711, 2997679, 8964746, 90381990, 2353403, 96526828, 43618380, 0585574 ####[facility] [address] [place] [address] CO2 [Moles/Vol] 13 mmol/L Abnormal 21-31 [facility] Comment on above: Result Comment: Crit ical Result verified by repeat analysis\Critical Result S_CO2:13.0) Called to JONATHAN CASE AT by VICENTA DOWNS and read back for confirmation at 09/10/2020 10:40:4 Performed By: #### 2 129218, 09298729, 4904648, 9316105, 8413991, 5806520, 5762490, 6864952, 3766630, 48592603, 2203843, 45642848, 39466758, 5142589 ####[facility] [address] [place] [address] Creatinine [Mass/Vol] 11.2 mg/dL Abnormal 0.5-1.3 [facility] Comment on above: Result Comment: Crit ical Result verified by repeat analysis\Critical Result S_CREA:11.20 Called to JONATHAN CASE AT by VICENTA DOWNS And Read Back For Confirmation at: 09/10/2020 10:40:41 Performed By: #### 2 438368, 36191148, 4468133, 2150569, 6758829, 9620356, 3727670, 5977834, 4930692, 94917321, 1436371, 22778263, 71130730, 6185593 ####[facility] [address] [place] [address] Blood Bank ID#on 09-10-2020 BBID# [id number] [facility] Comment on above: Performed By: #### 1 4883534, 00850571, 1730718, 58303042 ####[facility] [address] [place] [address] CBC W/DIFFon 09-10-2020 ABS BASOPHILS 0.0 10*3/uL Normal 0.0-0.2 [facility] Comment on above: Performed By: #### 1 0008 #### [facility] [address] ABS IMM GRANS 0.0 10*3/uL Normal 0.0-0.2 [facility] Comment on above: Performed By: #### 1 0008 #### [facility] [address] ABS NEUTROPHILS 5.3 10*3/uL Normal 1.6-7.6 [facility] Comment on above: Performed By: #### 1 0008 #### [facility] [address] [place] [address], [facility] Basophils/100 WBC (Bld) 0.2 % Normal 0.0-1.0 [facility] Comment on above: Performed By: #### 1 0008 #### [facility] [address] [place], [place] [address] Eosinophils (Bld) [#/Vol] 0.0 10*3/uL Normal 0.0-0.5 [facility] Comment on above: Performed By: #### 1 0008 #### [facility] [address] [facility] [place] [address], [facility] Eosinophils/100 WBC (Bld) 0.0 % Normal 0.0-6.0 [facility] Comment on above: Performed By: #### 1 0008 #### [facility] [address] Erythrocyte distribution width (RBC) [Ratio] 15.0 % Normal 11.5-15.0 [facility] Comment on above: Performed By: #### 1 0008 #### [facility] [address] Hematocrit (Bld) [Volume fraction] 29.4 % Low 39.0-50.0 [facility] Comment on above: Performed By: #### 1 0008 #### [facility] [address] Hemoglobin (Bld) [Mass/Vol] 10.0 g/dL Low 13.0-17.0 [facility] Comment on above: Performed By: #### 1 0008 #### [facility] [address] IMMATURE GRANS 0.3 % Normal 0.0-1.0 [facility] Comment on above: Performed By: #### 1 0008 #### [facility] [address] [facility] [place] [address], [facility] Lymphocytes (Bld) [#/Vol] 0.5 10*3/uL Low 1.2-4.0 [facility] Comment on above: Performed By: #### 1 0008 #### [facility] [address] [place] [address], [facility] Lymphocytes/100 WBC (Bld) 8.6 % Low 20.0-45.0 [facility] Comment on above: Performed By: #### 1 0008 #### [facility] [address] [facility] [place] [address], [facility] MCH (RBC) [Entitic mass] 31.5 pg Normal 27.0-33.0 [facility] Comment on above: Performed By: #### 1 0008 #### [facility] [address] [facility] [place] [address], [facility] MCHC (RBC) [Mass/Vol] 34.0 g/dL Normal 32.0-35.0 [facility] Comment on above: Performed By: #### 1 0008 #### [facility] [address] [place] [address], [facility] MCV (RBC) [Entitic vol] 92.7 fL Normal 82.0-98.0 [facility] Comment on above: Performed By: #### 1 0008 #### [facility] [address] [place] [address], [facility] Monocytes (Bld) [#/Vol] 0.3 10*3/uL Normal 0.1-1.0 [facility] Comment on above: Performed By: #### 1 0008 #### [facility] [address] [place] [address], [facility] MONOS 4.5 % Low 5.0-12.0 [facility] Comment on above: Performed By: #### 1 0008 #### [facility] [address] [place] [address], [facility] Neutrophils/100 WBC (Bld) 86.4 % High 40.0-72.0 [facility] Comment on above: Performed By: #### 1 0008 #### [facility] [address] [facility] [place] [place] [address], [facility] Nucleated RBC/100 WBC (Bld) [Ratio] 0 % Normal 0-0 [facility] Comment on above: Performed By: #### 1 0008 #### [facility] [address] [place] [address], [facility] PLAT CNT 155 10*3/uL Normal 150-400 [facility] Comment on above: Performed By: #### 1 0008 #### [facility] [address] [place] [address], [facility] RBC (Bld) [#/Vol] 3.17 10*6/uL Low 4.20-5.70 [facility] Comment on above: Performed By: #### 1 0008 #### [facility] [address] [place] [address], [facility] WBC (Bld) [#/Vol] 6.18 10*3/uL Normal 4.00-10.60 [facility] Comment on above: Performed By: #### 1 0008 #### [facility] [address] [place] [address], [facility] CBC w/ Auto Diffon 0 Erythrocyte distribution width (RBC) [Ratio] 14.7 % High 10.9-14.2 [facility] Comment on above: Performed By: #### 2 907987, 89382191, 3292045, 1355760, 6426657, 0360034, 7338588, 3951053, 6808070, 56045531, 4161562, 88833680, 61703683, 4685587 ####[facility] [address] [place] [address] Hematocrit (Bld) [Volume fraction] 17.1 % Low 37.7-49.0 [facility] Comment on above: Performed By: #### 2 098002, 64974339, 4595425, 6661235, 1416844, 4366913, 3063414, 2321823, 2963985, 84297126, 3084206, 78992907, 25089907, 2398093 ####[facility] [address] [place] [address] Hemoglobin (Bld) [Mass/Vol] 5.8 g/dL Abnormal 13.5-17.5 [facility] Comment on above: Result Comment: Resu lts Verified By Repeat Analysis. Results Called To Marta Cam in ED By INGA And Read Back For Confirmation On 09/10/2020 10:39:49 EST. Performed By: #### 2 786979, 60547705, 6485168, 5214061, 0935882, 9888499, 2926766, 5054997, 9845836, 84718706, 8246449, 08485516, 19912249, 9197416 ####[facility] [address] [place] [address] MCH (RBC) [Entitic mass] 32.6 pg Normal 27.0-34.0 [facility] Comment on above: Performed By: #### 2 661600, 96647198, 5960402, 5314857, 5911979, 9665944, 6858322, 5964244, 7649723, 96281439, 0763280, 68993845, 72339425, 0987072 ####[facility] [address] [place] [address] MCHC (RBC) [Mass/Vol] 33.7 g/dL Normal 31.4-36.0 [facility] Comment on above: Performed By: #### 2 234496, 56708391, 6624981, 2093119, 6314959, 4091897, 5006889, 9974646, 1231669, 55397352, 6654328, 01242393, 92837392, 1114497 ####[facility] [address] [place] [address] MCV (RBC) [Entitic vol] 96.8 fL Normal 80.0-100.0 [facility] Comment on above: Performed By: #### 2 725431, 73477212, 6738097, 2598290, 4307402, 6769201, 3542052, 2778972, 0292975, 58317254, 0577206, 25529073, 72403428, 1318201 ####[facility] [address] [place] [address] Platelet mean volume (Bld) [Entitic vol] 10.3 fL Normal 6.4-10.8 [facility] Comment on above: Performed By: #### 2 586357, 84032654, 3537850, 5708789, 8053310, 4092505, 0261892, 4129996, 4214473, 15059227, 4782029, 82687953, 91944210, 7330317 ####[facility] [address] [place] [address] Platelets (Bld) [#/Vol] 202.0 E9/L Normal 150.0-500.0 [facility] Comment on above: Performed By: #### 2 719509, 79337803, 8276648, 6840983, 4984847, 1038660, 4602850, 3150858, 4818135, 86861761, 3068836, 37057978, 50292176, 2683380 ####[facility] [address] [place] [address] RBC (Bld) [#/Vol] 1.8 E12/L Low 4.3-5.9 [facility] Comment on above: Performed By: #### 2 787082, 96083720, 7837960, 3314815, 0540447, 7212752, 0169401, 0344891, 7015097, 28650956, 3145426, 50649302, 72880351, 8085567 ####[facility] [address] [place] [address] WBC corrected for nucl RBC Auto (Bld) [#/Vol] 6.2 E9/L Normal 4.0-11.0 [facility] Comment on above: Performed By: #### 2 415430, 88553479, 4422169, 0414904, 1066750, 6768888, 4608880, 6814541, 2079681, 31633496, 9304556, 40339657, 73515291, 2886285 ####[facility] [address] [place] [address] COMP METABOLIC PANELon 09-10 Albumin [Mass/Vol] 4.0 g/dL Normal 3.5-5.7 [facility] Comment on above: Performed By: #### 3 1509, 64563 #### [facility] [address] [place] [address], [facility] ALKALINE PHOSPH 25 IU/L Low 34-104 [facility] Comment on above: Performed By: #### 3 1509, 06260 #### [facility] [address] [place] [address], [place] ALT [Catalytic activity/Vol] 9 U/L Normal 7-52 [facility] Comment on above: Performed By: #### 3 1509, 34838 #### [facility] [address] [place] [address], [place] AST [Catalytic activity/Vol] 9 U/L Low 13-39 [facility] Comment on above: Performed By: #### 3 1509, 99216 #### [facility] [address] [place] [address], [place] Bilirubin [Mass/Vol] 0.5 mg/dL Normal 0.3-1.0 [facility] Comment on above: Performed By: #### 3 1509, 61175 #### [facility] [address] [place] [address], [place] Calcium [Mass/Vol] 9.0 mg/dL Normal 8.6-10.3 [facility] Comment on above: Performed By: #### 3 1509, 03327 #### [facility] [address] [place] [address], [place] Chloride [Moles/Vol] 102 mmol/L Normal 98-107 [facility] Comment on above: Performed By: #### 3 1509, 74172 #### [facility] [address] [place] [address], [place] CO2 [Moles/Vol] 18 mmol/L Low 21-31 [facility] Comment on above: Performed By: #### 3 1509, 31890 #### [facility] [address] [place] [address], [place] Creatinine [Mass/Vol] 9.80 mg/dL Critically high 0.70-1.30 [facility] Comment on above: Performed By: #### 3 1509, 68352 #### [facility] [address] [place] [address], [place] GFR/1.73 sq M predicted among blacks MDRD (S/P/Bld) [Vol rate/Area] 6 ml/min/1.73sq m Abnormal >60 [facility] Comment on above: Result Comment: Calc ulation may not be valid for patients over 70 years Performed By: #### 3 1509, 69822 #### [facility] [address] [place] [address], [place] GFR/1.73 sq M predicted among non-blacks MDRD (S/P/Bld) [Vol rate/Area] 5 ml/min/1.73sq m Abnormal >60 [facility] Comment on above: Result Comment: Calc ulation may not be valid for patients over 70 years Performed By: #### 3 1509, 39829 #### [facility] [address] [place] [address], [place] Glucose [Mass/Vol] 143 mg/dL High 70-100 [facility] Comment on above: Performed By: #### 3 1509, 46051 #### [facility] [address] [place] [address], [place] Potassium [Moles/Vol] 4.3 mmol/L Normal 3.5-5.1 [facility] Comment on above: Performed By: #### 3 1509, 05560 #### [facility] [address] [place] [address], [facility] Protein [Mass/Vol] 7.1 g/dL Normal 6.0-8.3 [facility] Comment on above: Performed By: #### 3 1509, 85069 #### [facility] [address] [place] [address], [facility] Sodium [Moles/Vol] 135 mmol/L Low 136-145 [facility] Comment on above: Performed By: #### 3 1509, 35967 #### [facility] [address] [place] [address], [facility] Urea nitrogen [Mass/Vol] 107 mg/dL High 7-25 [facility] Comment on above: Performed By: #### 3 1509, 17746 #### [facility] [address] CPK-MB PROFILEon 09-10-2020 CK [Catalytic activity/Vol] 104 U/L Normal 30-223 [facility] Comment on above: Order Comment: No: D o not add to previous draw Performed By: #### 3 1509, 87380 #### [facility] [address] [place] [address], [facility] CK.MB [Mass/Vol] 5.7 ng/mL Critically high 0.0-1.9 [facility] Comment on above: Order Comment: No: D o not add to previous draw Performed By: #### 3 1509, 88903 #### [facility] [address] [place] [address], [place] CK.MB [Mass/Vol] 5.9 ng/mL High 0.0-5.0 [facility] Comment on above: Order Comment: No: D o not add to previous draw Result Comment: IF T OTAL CK <200 U/L AND: 1. CKMB IS 5-10 NG/ML----BORDERLINE 2. CKMB IS >10 NG/ML----INDICATIVE OF [place] OR IF TOTAL CK >200 U/L AND CKMB INDEX >1.9----INDICATIVE OF [place] Performed By: #### 3 1509 34584 #### [facility] [place] [address], [facility] CT Abdomen/Pelvis w/o Contra ston 09-10-2020 CT Abdomen/Pelvis w/o Contrast Exam Date/Time: [...] None Contrast amount in ml's: 0 Normal [facility] CT Chest w/o Contraston CT Chest w/o [...] M.D. Transcribed by: EUGENIE Technologist: GIBRAN Normal [facility] CT Head or Brain w/o [facility] 09-10-2020 CT Head or Brain w/o Contrast [...] M.D. Transcribed by: EUGENIE Technologist: GIBRAN Normal [facility] CT Maxillofacial w/o [facility] ton 09-10-2020 CT Maxillofacial w/o Contrast Exam Date/Time: [...] M.D. Transcribed by: EUGENIE Technologist: GIBRAN Pretty [facility] CT Spine Cervical w/o [facility] 09-10-2020 CT Spine Cervical w/o Contrast Exam [...] Samayoa M.D. Transcribed by: EUGENIE Technologist: GIBRAN [facility] Consent for Treatmenton Consent for Treatment [id number] CD:127 [facility] Consultation Noteon 09-10-20 20 Consultation Note Patient: [...] 101mmHg (SEP 10:) SpO2 100 % (SEP 10:50) General: Alert and oriented, No acute distress. [...] are for now. No urgent need for [facility] at this time Upon transfer to [facility], he will benefit from urology evaluation [...] the [facility] his trauma. Please feel free to call us with any questions. Normal [facility] Comment on above: Result Comment: Elec tronically Signed By: Zari GONZALEZ, Jigar\.br\Date and Time Signed: 09/10/20 14:44 EST ED Clinical Summaryon 2019 ED Clinical Summary (Inserted Image. Ailyn ble to display) [place] [id number] ED Clinical Summary Person Information Name: CHANO GOMEZ/Alber_Tristin Age: 75 Years : 1945 Sex: Male Language: Occitan PCP: SOHAM FERNANDO DO Marital Status: Visit [...] 09/10/2020 16:11:24 09/10/2020 16:11:24 09/10/2020 16:11:24 AD[address]: [address] [facility] [address] PHYS DOC NOTES: MEDICAL INFORMATION: Prescriptions Given: PATIENT EDUCATION INFORMATION: Instructions: Follow up: DIAGNOSIS: 1:Head trauma; 2:Renal failure; 3:Anemia Normal [facility] ED Note-Physicianon 09-10-20 ED Note-Physician Basic Information [...] are within normal range. Talk to the pathology transcriptionist on-call, she advised to start the patient [...] tried to have the patient transferred to [facility], after unsuccessful attempts we tried [facility] [place], they did not have a bed ready and the family wanted him to be transferred sooner. I talked to Dr. Adames at the emergency department at [facility] and he kindly accepted the patient. Patient [...] Discharge Condition Patient will be transferred to [facility] emergency department under Dr. Adames Discharge Prescription [...] (09/10/20 10:00:00) Lymph Auto: 34.8 % (09/10/20 10:00:) Loíza Auto: 4.9 % (09/10/20 10:00:00) Eos Auto: 1.7 % (09/10/20 10:00:00) Basophil Auto: 0.8 % (09/10/20 10:00:00) Neutro Absolute: 3.6 E9/L (09/10/20 10:00:00) Lymph Absolute: 2.2 E9/L (09/10/20 10:00:00) Loíza Absolute: 0.3 E9/L (09/10/20 10:00:00) Eos Absolute: [...] Signed By: Danita Magdaleno, Aneesh Shepherd CT Head or Brain w/o Contrast 09/10/20 [...] Signed By: Danita Magdaleno, Aneesh Shepherd CT Maxillofacial w/o Contrast 09/10/20 11:05:27 IMPRESSION: [...] achievable. Signed By: Aneesh Samayoa M.D. CT Spine Cervical w/o Contrast 09/10/20 10:58:57 [...] reasonably achievable. Signed By: Aneesh Samayoa M.D. EKG Results EC09/10/20: SINUS RHYTHM SEPTAL MYOCARDIAL INFARCTION, PROBABLY OLD ABNORMAL ECG Signed By: Yair Dominguez MD 09/10/2020 10:58:49 Normal [facility] Comment on above: Result Comment: Elec tronically Signed By: Yair Dominguez MD\.br\Date and Time Signed: 09/10/20 15:02 EST ED Patient Education Noteon 09-10-2020 ED Patient Education Note Normal [facility] ED Patient Summaryon 020 ED Patient Summary (Inserted Image. Ailyn ble to display) [place] [id number] Patient Discharge Instructions Person Information Name: CHANO GOMEZ Age: 75 Years Arrival Date: 09/10/2020 09:50:41 Discharge Diagnosis: 1:Head trauma; 2:Renal failure; 3:Anemia Primary Care Physician: SOHAM FERNANDO DO Provider Information Primary Provider: Yair Dominguez MD [employer] Dispatcher:None The exam and treatment you received in the Emergency Department were for an urgent problem and are not intended as complete care. It is important that you follow up with a doctor, nurse practitioner, or physician?s social human services assistants for ongoing care. If your symptoms become [...] opioids can be used to help relieve dvvguten-uf-nejaew pain and are often prescribed following a [...] from the Food and Drug Administration (www.fda.gov/Drugs/Reso urcesForYou). ? Visit www.cdc.gov/drugoverdos e to learn about the risks of opioids abuse and overdose. ? If you believe you may be struggling with addiction, tell your health care program director and ask for guidance or call [facility]?S National Helpline at 9-024-277-AFHL. v Source: [place] Department of Health and Human Services/Center for Disease Control & Prevention [facility] Medications Given: Medication Dose Route sodium bicarbonate 1150.00 mL Initial Volume 100.00 mL/hr IV Left Lower Forearm Dextrose 5% in Water intravenous solution 1150.00 mL Initial Volume 100.00 mL/hr IV Left Lower Forearm bupivacaine 150.00 mg IntraDermal Medication Information: Comment: Pharmacy Information: Thank you for choosing [facility] Patient Education Materials: RICO Lundy LARRY , have received the following patient education materials/instructions and have verbalized understanding: Patient Education Materials: Follow-up Instructions: Patient Signature Date Clinician/Nurse Signature _ Date 09/10/2020 16:11:26 Normal [facility] Ethanolon 09-10-2020 Ethanol [Mass/Vol] mg/dL Normal <=7 [facility] Comment on above: Performed By: #### 2 019115, 90097426, 4569578, 6223690, 1477640, 9837474, 3943936, 2136646, 2859113, 43467930, 6057197, 15567921, 74714852, 5128107 ####[facility] [address] [place] [address] Hep Fun Panelon 09-10-2020 Albumin [Mass/Vol] 1.2 g/dL Normal 1.1-2.2 [facility] Comment on above: Performed By: #### 2 360886, 17594024, 2831794, 2652621, 0118912, 2951779, 0988384, 3059770, 3049151, 42404934, 2654880, 10408961, 64752821, 4447768 ####[facility] [address] [place] [address] Albumin [Mass/Vol] 3.9 g/dL Normal 3.3-5.0 [facility] Comment on above: Performed By: #### 2 487152, 30368348, 3448821, 5274281, 9324855, 1387318, 5902732, 2677357, 0118484, 56480820, 9933583, 59310740, 15805108, 7911413 ####[facility] [address] [place] [address] ALP [Catalytic activity/Vol] 25 Int._Unit/L Normal 21-98 [facility] Comment on above: Performed By: #### 2 246894, 14694595, 8013145, 4549546, 1133494, 3324048, 8865709, 2812530, 1120477, 41813293, 0299403, 91101277, 39811533, 7764080 ####[facility] [address] [place] [address] ALT No additional P-5'-P [Catalytic activity/Vol] 12 Int._Unit/L Normal 6-46 [facility] Comment on above: Performed By: #### 2 248763, 23973559, 9976625, 0065954, 6032218, 5737206, 3855114, 6371562, 1376727, 51223752, 1229220, 79736026, 22566916, 7136005 ####[address] [place] [address] AST [Catalytic activity/Vol] 12 Int._Unit/L Normal 5-43 [facility] Comment on above: Performed By: #### 2 637263, 21658958, 4693864, 8740507, 8607818, 0279652, 8572580, 3675545, 9786879, 16802237, 7264143, 72204860, 62714869, 6461400 ####[address] [address] Bilirubin [Mass/Vol] 0.6 mg/dL Normal 0.0-1.1 [facility] Comment on above: Performed By: #### 2 354467, 87765831, 4969889, 5141414, 1331150, 9836933, 7703252, 5748944, 2989884, 87040424, 2611506, 48980658, 35963441, 5398306 ####[facility] [address] [place] [address] Bilirubin.direct [Mass/Vol] 0.5 mg/dL Normal 0.1-0.9 [facility] Comment on above: Performed By: #### 2 872166, 39715177, 9183841, 4293725, 5307076, 3255319, 4022906, 8335242, 2123723, 71913022, 7229207, 75526935, 54569146, 1877011 ####[facility] [address] [place] [address] Bilirubin.direct [Mass/Vol] 0.1 mg/dL Normal 0.1-0.4 [facility] Comment on above: Performed By: #### 2 097268, 26047313, 6804518, 6814540, 3508070, 1442124, 7911288, 5052004, 4188573, 81000577, 8794383, 03471047, 91475552, 6028425 ####[facility] [address] [place] [address] Globulin (S) [Mass/Vol] 3.3 g/dL Normal 1.4-4.0 [facility] Comment on above: Performed By: #### 2 246245, 68438612, 9191566, 1932028, 7887533, 1224197, 7382776, 6832620, 0455571, 52406834, 4364055, 09146435, 22099739, 8944865 ####[facility] [address] [place] [address] Protein [Mass/Vol] 7.2 g/dL Normal 6.0-7.8 [facility] Comment on above: Performed By: #### 2 065832, 31729145, 5997597, 1395293, 7942721, 6456749, 2649830, 4969560, 4676821, 46403027, 3421446, 08205131, 45251081, 4586303 ####[facility] [address] [place] [address] LACTATE BLOODon 09-10-2020 Lactate [Moles/Vol] 0.6 mmol/L Normal 0.5-2.2 [facility] Comment on above: Order Comment: No: D o not add to previous draw Performed By: #### 5 6101 #### [facility] [address] [facility] [place] [address], [facility] Lactic Acidon 09-10-2020 Lactate [Mass/Vol] 1.3 mmol/L Normal 0.5-2.2 [facility] Comment on above: Performed By: #### 2 658529, 46865571, 1818023, 4835923, 4407062, 3229317, 8195844, 5401194, 3045746, 31378368, 9738362, 68346227, 86488062, 6334328 ####[facility] [address] [place] [address] Lipase Levelon 09-10-2020 Lipase [Catalytic activity/Vol] 80 unit/L High 13-58 [facility] Comment on above: Performed By: #### 2 812121, 44940833, 0321998, 4477265, 1506001, 3891565, 8688264, 7909584, 5362379, 21096206, 3936238, 61592941, 90189298, 3070604 ####[facility] [address] [place] [address] MYOGLOBINon 09-10-2020 Myoglobin [Mass/Vol] 233 ng/mL Critically high 0-90 [facility] Comment on above: Result Comment: A DO UBLING OF VALUES FROM SERIAL BLOOD COLLECTIONS (1 - 2 HOURS APART) IS MORE INDICATIVE OF A M.I. THAN THE ABSOLUTE VALUE. Performed By: #### 3 1509, 90016 #### [facility] [address] [place] [address], [facility] Magnesiumon 09-10-2020 Magnesium [Mass/Vol] 2.5 mg/dL High 1.3-2.4 [facility] Comment on above: Performed By: #### 2 090338, 42398378, 0152655, 6126617, 3532857, 0293400, 7289275, 5093827, 4361451, 48141177, 0247931, 68175819, 37515363, 9379668 ####[facility] [address] [place] [address] Morphon 09-10-2020 Morphology Kayode (Bld) [Interp] Normal Normal [facility] Comment on above: Order Comment: Order Added by Discern Expert. Performed By: #### 2 317981, 93683163, 4523524, 1024096, 6175443, 0478846, 7876524, 8523814, 8191078, 56395352, 9510410, 00878696, 94919894, 5874800 ####[facility]o [facility] [address] [place] [address] Myoglobinon 09-10-2020 Myoglobin [Mass/Vol] 251 ng/mL High <=69 [facility] Comment on above: Performed By: #### 2 320341, 93291351, 1280806, 2187732, 7733816, 2656192, 0001624, 4280794, 0622995, 54133318, 4756658, 99146591, 46788498, 5519714 ####Yoo [facility] [address] [place] [address] PROTHROMBIN TIMEon 0 INR Coag (PPP) [Relative time] 0.97 {INR} Normal 0.91-1.16 [facility] Comment on above: Result Comment: ACCC [...] RANGE. CHEST 1995;108:231S-246S. Performed By: #### 3 3219, 41827 #### [facility] [address] [place] [address], [facility] PT Coag (PPP) [Time] 12.9 s Normal 12.3-14.8 [facility] Comment on above: Result Comment: ALL RESULTS MUST BE INTERPRETED WITH RESPECT TO BLOOD DRAWING ARTIFACT OR DILUTION ERROR OF ANTICOAGULANT AT THE TIME OF SAMPLING. Performed By: #### 3 1509, 60158 #### [facility] [address] [place] [address], [place] PT & PTTon 09-10-2020 aPTT Coag (PPP) [Time] 23.1 second(s) Low 25.1-36.5 [facility] Comment on above: Result Comment: Hepa rin therapeutic range (represented by Anti-Factor Xa activity of 0.2 - 0.4 U/mL) corresponds to PTT of 56.6 - 109.0 sec. Performed By: #### 2 356573, 96176215, 0811137, 2728777, 8644196, 6324383, 6547025, 4851421, 2633848, 40557654, 0993717, 98138022, 33072618, 2567134 ####[facility] [address] [place] [address] INR Coag (PPP) [Relative time] 1.0 {INR} [facility] Comment on above: Result Comment: INR results are specifically intended to assess patients stabilized on long-term Anticoagulation therapy suggested INR?s ?Less Intensive Anticoagulation? 2.0 ? 3.0 Conventional Range 3.0 ? 4.5 Performed By: #### 2 891882, 03963302, 7943007, 9859437, 6027662, 4141188, 2478351, 0250577, 3952656, 85440432, 4748838, 12487584, 96721991, 1918870 ####[facility] [address] [place] [address] PT Coag (PPP) [Time] 12.0 second(s) Normal 10.2-12.9 [facility] Comment on above: Performed By: #### 2 597199, 11832886, 8209483, 6216770, 3828477, 4779893, 4436006, 7561373, 4551585, 89291619, 8652151, 39470633, 38348226, 1821036 ####[facility] [address] [place] [address] RCOon 09-10-2020 # of Units 2 [facility] Comment on above: Result Comment: 09/10 12:19 [id number] Blood product ready and called to Renu in ED at 09/10/2020 12:19:01 EST by inga. Performed By: #### 1 [id number] #### [facility] [address] [place] [address] Date Required 09-10-2020 [facility] Comment on above: Performed By: #### 1 6010168 #### [facility] [address] [place] [address] Product Type None Required [facility] Comment on above: Performed By: #### 1 9288730 #### [facility] [address] [place] [address] TROPONIN-Ion 09-10-2020 Troponin I.cardiac [Mass/Vol] 0.03 ng/mL Normal 0.00-0.04 [facility] Comment on above: Result Comment: REFE RENCE RANGES: 0.00 - 0.04 ng/ml NORMAL 0.05 - 0.50 ng/ml INDETERMINATE > 0.50 ng/ml CONSISTENT WITH AN M.I. Performed By: #### 3 1509, 78292 #### [facility] [address] [place] [address], [facility] Transfer Documentson 020 Transfer Documents [id number] CD:127 Normal [facility] Troponinon 09-10-2020 Troponin I.cardiac [Mass/Vol] 12.10 pg/mL Low 15.90-38.40 [facility] Comment on above: Result Comment: The 95% CI (Confidence Interval) PPV (Positive Predictive Value) for myocardial infarction in females is 38 pg/mL, in males 51 pg/mL. The results should be used in conjunction with clinical conditions of myocardial infarction. (Access High Sensitivity Troponin I Instructions For Use, Meghana [place], June 2018) Performed By: #### 2 176033, 11204666, 9870762, 9246654, 7262283, 5795586, 1324070, 1051046, 0865512, 92182299, 8540948, 94089311, 82724934, 9980896 ####[facility] [address] [place] [address] U Drug Screenon 09-10-2020 Amphetamines Screen method >1000 ng/mL Ql (U) Negative Normal Negative [facility] Comment on above: Result Comment: Nega tive Cutoff: <1000 ng/mL Performed By: #### 2 627306 #### [facility] [address] [place] [address] Barbiturates Screen Ql (U) Negative Normal Negative [facility] Comment on above: Result Comment: Nega tive Cutoff: <200 ng/mL Performed By: #### 2 507668 #### [facility] [address] [place] [address] Benzodiazepines Ql (U) Negative Normal Negative [facility] Comment on above: Result Comment: Nega tive Cutoff: <200 ng/mL Performed By: #### 2 279713 #### [facility] [address] [place] [address] Cocaine Ql (U) Negative Normal Negative [facility] Comment on above: Result Comment: Nega tive Cutoff: <300 ng/mL Performed By: #### 2 664099 #### [facility] [address] [place] [address] Opiates Screen Ql (U) Negative Normal Negative [facility] Comment on above: Result Comment: Nega tive Cutoff: <300 ng/mL Performed By: #### 2 747761 #### [facility] [address] [place] [address] Phencyclidine Screen method >25 ng/mL Ql (U) Negative Normal Negative [facility] Comment on above: Result Comment: Nega tive Cutoff: <25 ng/mL These drug screen results are to be used for medical (i.e., treatment) purposes only. Unconfirmed drug screening results must not be used for non-medical purposes (e.g., employment testing, legal testing). Performed By: #### 2 464938 #### [facility] [address] [place] [address] Tetrahydrocannabinol Screen method >50 ng/mL Ql (U) Negative Normal Negative [facility] Comment on above: Result Comment: Nega tive Cutoff: <50 ng/mL Performed By: #### 2 215259 #### [facility] [address] [place] [address] URINALYSISon 09-10-2020 Appearance (U) SL CLOUDY Abnormal CLEAR [facility] Comment on above: Performed By: #### 1 0008 #### [facility] [address] [place] [address], [facility] Bilirubin [Mass/Vol] Negative Normal NEGATIVE [facility] Comment on above: Performed By: #### 1 0008 #### [facility] [address] [place] [address], [facility] BLOOD LARGE Abnormal NEGATIVE [facility] Comment on above: Performed By: #### 1 0008 #### [facility] [address] [facility] [place] [address], [facility] Color (U) STRAW Abnormal YELLOW [facility] Comment on above: Performed By: #### 1 0008 #### [facility] [address] [place] [address], [facility] EPIS NONE SEEN Normal FEW,OCC,NON E SEEN [facility] Comment on above: Performed By: #### 1 0008 #### [facility] [address] [place] [address], [facility] Glucose [Mass/Vol] 50 mg/dL Abnormal NEGATIVE [facility] Comment on above: Performed By: #### 1 0008 #### [facility] [address] [place] [address], [facility] KETONE Negative Normal NEGATIVE [facility] Comment on above: Performed By: #### 1 0008 #### [facility] [address] [place] [address], [facility] LEUK DEJAH TRACE Abnormal NEGATIVE [facility] Comment on above: Performed By: #### 1 0008 #### [facility] [address] [place] [address], [facility] Nitrite Ql (U) Negative Normal NEGATIVE [facility] Comment on above: Performed By: #### 1 0008 #### [facility] [address] [facility] [place] [address], [facility] pH (Bld) 7.0 Normal 5.0-8.0 [facility] Comment on above: Performed By: #### 1 0008 #### [facility] [address] [facility] [place] [address], [facility] Protein (U) [Mass/Vol] 100 mg/dL Abnormal NEGATIVE Th e [facility] Comment on above: Performed By: #### 1 0008 #### [facility] [address] [facility] [place] [address], [facility] RBC (U) [#/Vol] 51-100 Abnormal NONE SEEN [facility] Comment on above: Performed By: #### 1 0008 #### [facility] [address] [facility] [place] [address], [facility] SPEC GRAV 1.006 Low 1.015-1.020 [facility] Comment on above: Performed By: #### 1 0008 #### [facility] [address] [facility] [place] [address], [facility] WBC UA 6-10 Abnormal NONE SEEN [facility] Comment on above: Performed By: #### 1 0008 #### [facility] [address] [place] [address], [facility] VENOUS BLOOD GASon 0 BASE EXCESS -6 mmol/L Normal [facility] Comment on above: Performed By: #### 3 1509, 73196 #### [facility] [address] [place] [address], [place] HCO3 (Bld) [Moles/Vol] 19 mmol/L Normal Th e [facility] Comment on above: Performed By: #### 3 1509, 71604 #### [facility] [address] [place] [address], [place] Oxygen (Bld) [Partial pressure] 37 mm[Hg] Normal 35-45 [facility] Comment on above: Performed By: #### 3 1509, 60516 #### [facility] [address] [place] [address], [facility] Oxygen saturation in Blood 68.4 % Normal 65.0-75.0 [facility] Comment on above: Performed By: #### 3 1509, 11379 #### [facility] [address] [place] [address], [facility] PCO2 37 mmHg Normal [facility] Comment on above: Performed By: #### 3 1509, 84604 #### [facility] [address] [place] [address], [place] pH (Bld) 7.32 [pH] Normal 7.31-7.41 [facility] Comment on above: Performed By: #### 3 1509, 43618 #### [facility] [address] [place] [address], [place] eGFRon 09-10-2020 GFR/1.73 sq M predicted among blacks MDRD (S/P/Bld) [Vol rate/Area] 5 mL/min/1.73 m2 Low >=59 [facility] Comment on above: Order Comment: Order added by Discern Expert. Result Comment: eGFR is race adjusted. AA=. Performed By: #### 2 398991, 96055404, 9371080, 0357910, 3959133, 5062075, 9463562, 5725020, 2029225, 23190800, 3825349, 10105898, 04299214, 4590594 ####[facility] [address] [place] [address] GFR/1.73 sq M predicted among non-blacks MDRD (S/P/Bld) [Vol rate/Area] 5 mL/min/1.73 m2 Low >=59 [facility] Comment on above: Order Comment: Order added by Discern Expert. Result Comment: Disintegrator Operator jean kidney disease could be indicated at eGFR's of less than 60 mL/min/1.73m2. Kidney failure is indicated at less than 15 mL/min/1.73m2. Performed By: #### 2 562126, 66923803, 0969090, 1855450, 3544862, 5331824, 8773313, 8661789, 7535377, 31120100, 9939194, 07355027, 56125121, 5773602 ####[facility] [address] [place] [address] Vital Signs Date Time Vital Sign Value Performing Clinician Facility 08-16-2024 15:08-0400 Body mass index (BMI) [Ratio] 21.2 kg/m2 [facility] 08-16-2024 15:08-0400 Diastolic blood pressure 100 mm[Hg] [facility] 08-16-2024 15:08-0400 Systolic blood pressure 160 mm[Hg] [facility] 08-16-2024 14:41-0400 Body height 179.07 cm [facility] 08-16-2024 14:41-0400 Body weight 68.26 kg [facility] 08-16-2024 14:41-0400 Heart rate 91 /min [facility] 08-16-2024 14:41-0400 Respiratory rate 12 /min [facility] 05-04-2024 13:35-0400 Body height 179.07 cm [facility] 05-04-2024 13:35-0400 Body mass index (BMI) [Ratio] 21.1 kg/m2 [facility] 05-04-2024 13:35-0400 Body weight 67.69 kg [facility] 05-04-2024 13:35-0400 Diastolic blood pressure 134 mm[Hg] [facility] 05-04-2024 13:35-0400 Heart rate 98 /min [facility] 05-04-2024 13:35-0400 Respiratory rate 12 /min [facility] 05-04-2024 13:35-0400 Systolic blood pressure 199 mm[Hg] [facility] 02-03-2024 15:18-0400 Body height 179.07 cm [facility] 02-03-2024 15:18-0400 Body mass index (BMI) [Ratio] 22.9 kg/m2 [facility] 02-03-2024 15:18-0400 Body weight 73.59 kg [facility] 02-03-2024 15:18-0400 Diastolic blood pressure 114 mm[Hg] [facility] 02-03-2024 15:18-0400 Heart rate 87 /min [facility] 02-03-2024 15:18-0400 Respiratory rate 12 /min [facility] 02-03-2024 15:18-0400 Systolic blood pressure 176 mm[Hg] [facility] 12-03-2023 14:41-0500 Blood Pressure Location AGNES DARREL [facility] 12-03-2023 14:41-0500 Diastolic blood pressure 83 mm[Hg] AGNES DARREL [facility] 12-03-2023 14:41-0500 Heart rate 77 /min AGNES DARREL [facility] 12-03-2023 14:41-0500 Respiratory rate 16 /min AGNES DARREL [facility] 12-03-2023 14:41-0500 Systolic blood pressure 136 mm[Hg] AGNES ROJO [facility] 10-10-2023 14:30-0500 Body height 179.07 cm Soham Ball Other [facility] Other 10-10-2023 14:30-0500 Body mass index (BMI) [Ratio] 21.64 kg/m2 Soham Ball Other [facility] Other 10-10-2023 14:30-0500 Body weight 69.4 kg Soham Ball Other [facility] Other 10-10-2023 14:30-0500 Diastolic blood pressure 106 mm[Hg] Soham Ball Other [facility] Other 10-10-2023 14:30-0500 Respiratory rate 12 /min Soham Ball Other [facility] Other 10-10-2023 14:30-0500 Systolic blood pressure 181 mm[Hg] Soham Ball Other [facility] Other 07-11-2023 13:45-0400 Body height 179.07 cm Soham Ball Other [facility] Other 07-11-2023 13:45-0400 Body mass index (BMI) [Ratio] 21.36 kg/m2 Soham Ball Other [facility] Other 07-11-2023 13:45-0400 Body weight 68.49 kg Soham Ball Other [facility] Other 07-11-2023 13:45-0400 Diastolic blood pressure 101 mm[Hg] Soham Ball Other [facility] Other 07-11-2023 13:45-0400 Respiratory rate 12 /min Soham Ball Other [facility] Other 07-11-2023 13:45-0400 Systolic blood pressure 173 mm[Hg] Soham Ball Other [facility] Other 07-03-2023 15:00-0400 Body height 179.07 cm Soham Ball Other [facility] Other 07-03-2023 15:00-0400 Body mass index (BMI) [Ratio] 20.93 kg/m2 Soham Ball Other [facility] Other 07-03-2023 15:00-0400 Body weight 67.13 kg Soham Ball Other [facility] Other 07-03-2023 15:00-0400 Diastolic blood pressure 127 mm[Hg] Soham Ball Other [facility] Other 07-03-2023 15:00-0400 Respiratory rate 12 /min Soham Ball Other [facility] Other 07-03-2023 15:00-0400 Systolic blood pressure 203 mm[Hg] Soham Ball Other [facility] Other 06-19-2023 12:10-0400 Body height 179.07 cm Bonita Ni Other [facility] Other 06-19-2023 12:10-0400 Body mass index (BMI) [Ratio] 21.64 kg/m2 Bonita Ni Other [facility] Other 06-19-2023 12:10-0400 Body temperature 98 [degF] Bonita Ni Other [facility] Other 06-19-2023 12:10-0400 Body weight 69.4 kg Bonita Ni Other [facility] Other 06-19-2023 12:10-0400 Diastolic blood pressure 119 mm[Hg] Bonita Ni Other [facility] Other 06-19-2023 12:10-0400 Respiratory rate 18 /min Bonita Ni Other [facility] Other 06-19-2023 12:10-0400 SaO2% (BldA) [Mass fraction] 97 % Bonita Ni Other [facility] Other 06-19-2023 12:10-0400 Systolic blood pressure 185 mm[Hg] Bonita Ni Other [facility] Other 10-11-2022 15:30-0500 Body height 182.88 cm Thu Espinozamond Other [facility] Other 10-11-2022 15:30-0500 Body mass index (BMI) [Ratio] 20.34 kg/m2 Thu Carolina Other [facility] Other 10-11-2022 15:30-0500 Body temperature 97.8 [degF] Thu Carolina Other [facility] Other 10-11-2022 15:30-0500 Body weight 68.04 kg Thu Carolina Other [facility] Other 10-11-2022 15:30-0500 Respiratory rate 18 /min Thu Fig[facility] Other 10-11-2022 15:30-0500 SaO2% (BldA) [Mass fraction] 96 % Thu Figueroa Other [facility] Other Encounters Encounter Date Encounter Type Care Provider Facility Start: 08-16-2024 End: 08-16-2024 ambulatory [facility] Work Phone: Start: 08-16-2024 End: 08-16-2024 Patient encounter procedure [facility] Physician [facility] Work Phone: Start: 08-14-2024 Patient encounter procedure [facility] Start: 05-04-2024 End: 05-04-2024 ambulatory [facility] Work Phone: Start: 05-04-2024 End: 05-04-2024 Patient encounter procedure [facility] Work Phone: Start: 02-03-2024 End: 02-03-2024 Patient encounter procedure [facility] [facility] Work Phone: Start: 02-03-2024 End: 02-03-2024 ambulatory [facility] Work Phone: Start: 02-03-2024 Telephone encounter Soham Fernando [facility] Start: 12-10-2023 End: 02-03-2024 Pre-admission assessment Jeffrey MARTÍNEZ [facility] Start: 12-03-2023 End: 12-04-2023 ambulatory ANDREA ROJO Facility: [facility] Start: 12-03-2023 End: 12-03-2023 Patient encounter procedure AGNES ROJO [facility] [place] Start: 11-17-2023 End: 11-17-2023 ambulatory Soham Fernando Other [facility] Other Start: 11-17-2023 Telephone encounter Soham Fernando [facility] Start: 11-17-2023 Patient encounter procedure [facility] Start: 10-17-2023 End: 10-17-2023 ambulatory Soham Ball Other [facility] Other Start: 10-17-2023 Telephone encounter Soham Ball [facility] Start: 10-10-2023 End: 10-10-2023 ambulatory Soham Ball Other [facility] Other Start: 10-10-2023 Office outpatient visit 25 minutes Soham Ball [facility] Start: 07-11-2023 End: 07-11-2023 ambulatory Soham Fernando Other [facility] Other Start: 07-11-2023 Office outpatient visit 25 minutes Soham Ball [facility] Start: 07-10-2023 End: 07-10-2023 ambulatory Soham Fernando Other [facility] Other Start: 07-10-2023 Telephone encounter Soham Ball [facility] Start: 07-03-2023 End: 07-03-2023 ambulatory Soham Fernando Other [facility] Other Start: 07-03-2023 Office outpatient visit 25 minutes Soham Ball [facility] Start: 07-03-2023 Telephone encounter Soham Ball [facility] Start: 06-19-2023 End: 06-19-2023 ambulatory Bonita Ni Other [facility] Other Start: 06-19-2023 Office outpatient visit 15 minutes Bonita Last [facility] Start: 11-01-2022 End: 11-01-2022 ambulatory Floyd Rubi Facility:[facility] Start: 11-01-2022 End: 11-01-2022 ambulatory PHYSICIAN KYE [facility] Work Phone: Start: 11-01-2022 End: 11-01-2022 Patient encounter procedure PHYSICIAN KYE [facility] [place] [facility] Start: 10-11-2022 End: 10-11-2022 ambulatory Thu Figueroa Other [facility] Other Start: 10-11-2022 Office outpatient visit 15 minutes Thu Figueroa [facility] Start: 10-09-2022 End: 10-09-2022 ambulatory Floyd Rubi Other [facility] Other Start: 10-09-2022 FQHC visit new patient Floyd Elicia [facility] Start: 10-06-2022 End: 10-07-[address] SOHAM FERNANDO Facility: Start: 10-23-2020 Patient encounter procedure [facility] Start: 10-19-2020 End: 10-20-2020 Patient encounter procedure [facility] Start: 10-19-2020 End: 10-19-2020 Subsequent hospital visit by physician [facility] Start: 10-16-2020 End: 10-17-2020 Patient encounter procedure [facility] Start: 10-16-2020 End: 10-16-2020 Subsequent hospital visit by physician [facility] Start: 10-13-2020 End: 10-14-2020 Patient encounter procedure [facility] Start: 10-13-2020 End: 10-13-2020 Subsequent hospital visit by physician [facility] Start: 10-12-2020 End: 10-13-2020 Patient encounter procedure [facility] Start: 10-12-2020 End: 10-12-2020 Subsequent hospital visit by physician [facility] Start: 10-11-2020 End: 10-12-2020 Patient encounter procedure [facility] Start: 10-11-2020 End: 10-11-2020 Subsequent hospital visit by physician [facility] Start: 10-10-2020 End: 10-11-2020 Patient encounter procedure JEFFRY AMADOR [facility] Start: 10-10-2020 End: 10-10-2020 Subsequent hospital visit by physician [facility] Start: 10-09-2020 End: 10-10-2020 Patient encounter procedure JEFFRY AMADOR [facility] Start: 10-09-2020 End: 10-09-2020 Subsequent hospital visit by physician [facility] Start: 09-10-2020 End: 09-26-2020 Evaluation and management of inpatient ROHITH SALAS Facility:[facility] Procedures Date Procedure Procedure Detail Performing Clinician Start: 11-01-2022 Plain X-ray of right wrist PHYSICIAN KYE PACE Start: 03-08-2021 Transurethral water vapor ablation of prostate AGNESSHAY ROJO Start: 10-23-2020 HEMOGLOBIN AND HEMAT OCRIT, BLOOD [...] Start: 10-09-2020 Blood count complete automated JEFFRY VICTORIAON Start: 10-09-2020 Basic metabolic pane l calcium total Jeffry Andres Marjorie Work Phone: Start: 10-09-2020 Blood count complete automated Jeffry Andres Marjorie Work Phone: Start: 09-25-2020 EXCISION OF DUODENUM , ENDO, DIAGN GHADA SARAVIA Start: 09-25-2020 EXCISION OF ILEOCECA L VALVE, ENDO, DIAGN GHADA SARAVIA Start: 09-25-2020 EXCISION OF SIGMOID COLON, ENDO, DIAGN GHADA SARAVIA Start: 09-25-2020 EXCISION OF STOMACH, ENDO, DIAGN GHADA SARAVIA Start: 09-21-2020 Antibody screen ROHITH AN AD Comment on above: Performed By: #### [id number] ####[facility] Start: 09-14-2020 Antibody screen ROHITH LOFTON Comment on above: Performed By: #### [id number] #### [facility] [address] [place] [address], [facility] Start: 09-14-2020 TRANSFUSE NONAUT RED BLOOD CELLS IN PERIPH VEIN, PERC ROHITH SALAS Start: 09-11-2020 [object Object] ROHITH LOFTON Comment on above: Order Comment: Yes: Add to Previous draw if able Performed By: #### [id number] ####[facility].[address] Extraction of cataract SUSANNE PAOLA DARREL Plan of Treatment Date Care Activity Detail [...] 07-04-2020 Influenza vaccination Flu vaccine (# 1) [place], [place] Comprehensive metabo lic 2000 panel - Serum or Plasma [facility] Immunizations Immunization Date Immunization Notes Care Provider Fa cility 07-11-2023 influenza, high dose seasonal, preservative-free Soham Fernando Other [facility] Other 07-11-2023 Prevnar 20 Soham Fernando Other [facility] 07-11-2023 influenza virus vaccine, unspecified formulation [facility] Payers Date Payer Category Payer Unknown [id number] 2023 Medicare [id number] 2022 Self-pay 1959 Self-pay [id number] 1945 Unknown [id number] [id number] [id number] 1945 Unknown [id number] 1945 Unknown [id number] [id number] [id number] Unknown [id number] 2.16.8 [id number] Unknown [id number] 2.16.8 [id number] Social History Date Type Detail Facility [facility] if ever smoked [place], [place] Sex Assigned At Not on file [place], [place] Sex Assigned At [facility] Start: 1945 Sex Assigned At Male [facility] Start: 04-17-2021 End: 2024 Tobacco smoking status Ex-smoker (finding) [facility] Functional Status Date Assessment Result Facility 12-03-2023 Functional Status N/A [facility] Clinical Notes 10-09-2022 to 12-03-2023 [...] including vitamins, herbs, eye drops, creams, and eeir-vyt-mihhpgo medicines. ?Whether you are or may be [...] provider. Document Revised: 07/03/2022 Document Reviewed: 05/25/2021 [employer] Patient Education 2022 [employer]. 12/03/2023 15:44:25 Cystoscopy Cystoscopy Cystoscopy is a [...] including vitamins, herbs, eye drops, creams, and lfzf-tdu-ljzrldi medicines. Any problems you or family members [...] provider tells you to take them. Taking gwhi-opf-iadcsny medicines, vitamins, herbs, and supplements. Tests You [...] Follow these instructions at home: Medicines Take todg-ihg-msydbmh and prescription medicines only as told by [...] provider. Document Revised: 07/03/2022 Document Reviewed: 06/01/2021 [employer] Patient Education 2022 [employer]. 12/03/2023 15:42:54 Acute Urinary Retention, Male Acute [...] Follow these instructions at home: Medicines Take kfbr-lal-qfismbq and prescription medicines only as told by [...] provider. Document Revised: 07/11/2021 Document Reviewed: 07/11/2021 [employer] Patient Education 2022 [employer]. Follow Up Care 10/22/2023 15:11:22 With:AGNES ROJO PA-C, URL Address: [address] [place] [phone] When: Unknown Comments:sched cysto/uros [facility] 10-10-2023 Evaluation note Encounter Date [...] candidate, will discuss further at wellness examination [facility] Other [id number] Evaluation note* Encounter Date Diagnosis Assessment Notes [...] candidate, will discuss further at wellness examination [facility] Other 09-08-2023 Evaluation note* Encounter Date Diagnosis [...] and cancers. Discussed scheduling LDCT in future [facility] Other 08-31-2023 Evaluation note* Encounter Date Diagnosis [...] PSA (prostate specific antigen) (ICD-10 - Z12.5) [facility] Other 08-17-2023 Evaluation note* Encounter Date Diagnosis [...] contact to establish with Dr. Fernando in [place]. Advised patient to head into ER for chest pain, shortness of breath, headaches, fevers greater than 103. Patient verbalizes understanding and is agreeable with treatment plan [facility] Other 12-09-2022 Evaluation note* Encounter Date Diagnosis Assessment Notes Treatment Notes Treatment Clinical Notes Oct, Visit for suture removal (ICD-10 - Z48.02) Suture removal home care material was printed Keep the wounds to the face and upper lip clean and dry. Apply antibiotic ointment to the wounds daily until they are completely healed. Follow-up with your family physician for any further concern [facility] Other 12-07-2022 Evaluation note* Encounter Date Diagnosis [...] in office today. Prior medical notes from [place] ED and history have been reviewed. At this time I would recommend splint application and nonweightbearing. We will plan for follow-up 3 to 4 weeks for repeat x-rays. The patient has been involved in our cooperative treatment plan and agrees to move forward with treatment at this time. Oct, Other See orders for this visit as documented in the electronic medical record. [facility] Other Evaluation + Plan note No data available for this section [facility] Evaluation noteNo assessment information available [facility] Work Phone: Evaluation noteNo InformationNort [employer] Other Evaluation note* Diagnosis Onset Date Resolution Status Benign prostatic hyperplasia with lower urinary tract symptoms acute Mild cognitive impairment ac elie Primary hypertension acute Simple chronic bronchitis ac elie Stage 3b chronic kidney disease acute [facility] Work Phone: Evaluation note* Diagnosis Onset Date Resolution Status Benign prostatic hyperplasia with lower urinary tract symptoms acute Medicare annual wellness visit, subsequent acute Mild cognitive impairment ac elie Primary hypertension acute Simple chronic bronchitis ac elie Stage 3b chronic kidney disease acute Unsteady when turning acute [facility] Work Phone: Hisoyhd general Narrative - Reported* Type Description Date Medical History right arm injury Surgical History eye surgery [facility] Other His[facility] general Narrative - Reported* Type Description Date Medical History right arm injury Medical History HTN (hypertension) Medical History BPH (benign prostatic hyperplasi a) Medical History Constipation Medical History GERD (gastroesophageal reflux di sease) Medical History Iron deficiency anemia Surgical History eye surgery [facility] Other Hisxjex general Narrative - Reported* Type Description Date Medical History right arm injury Medical History HTN (hypertension) Medical History BPH (benign prostatic hyperplasi a) Medical History Constipation Medical History GERD (gastroesophageal reflux di sease) Medical History Iron deficiency anemia Surgical History eye surgery Hospitalization History see surgical history [facility] Other Hisuwor general Narrative - Reported* Type Description Date Medical History right arm injury Medical History HTN (hypertension) Medical History BPH (benign prostatic hyperplasi a) Medical History Constipation Medical History GERD (gastroesophageal reflux di sease) Medical History Iron deficiency anemia Surgical History eye surgery Surgical History Rezum prostate procedure Hospitalization History see surgical history [facility] Other Hospital Discharge instructions No data available for this section [facility] No data available for this section [facility] Summary Purpose Family History Relationship Condition Age at Onset Recorded Date/T seth father Unknown Not Specified Unknown Relationship Condition Age at Onset Recorded Date/T seth father Unknown mother Unknown Advance Directives Advance Directive Response Recorded Date/ Time Advance Directives No October 2:38pm Advance Directive Response Recorded Date/ Time Advance Directives No October 3:38pm Hospital Course Note MR#: [id number] [facility] Pt. Name: Chano Gomez Admitted: 09/10/2020 [...] pr (more content not included)... Note MR#: [id number] [facility] Pt. Name: Chano Gomez Surgery Date: 09/25/2020 Room #: [id number] Date of : 1945 PROCEDURE NOTE ATTENDING: [...] content not included)... Procedure Findings Note MR#: [id number] [facility] Pt. Name: Chano Gomez Surgery Date: 09/25/2020 Room #: [id number] Date of : 1945 PROCEDURE NOTE ATTENDING: [...] Stage 3b chronic kidney disease Chief Complaint wellness Reason for Visit Benign prostatic hyp erplasia with lower urinary tract symptoms Medicare annual wellness visit, subsequent Mild cognitive impairment Primary hypertension Simple chronic bronchitis Stage 3b chronic kidney disease Unsteady when turning Reason for Referral Reason Patient being referr ed for urinary retention and post obstructive uropathy Diagnosis 1 Benign prostatic hyp erplasia with lower urinary tract symptoms (N40.1) Diagnosis 2 Feeling of incomplet e bladder emptying (R39.14) Referral Organization [facility] Abdullahi moreno Referring Provider First Name Soham Referring Provider Last Name Abdullahi Referring Provider Specialty Internal Me dicine Referred Organization [facility] Referred Address [address] [place] [place],[address] Referred Provider Specialty Urology Referral Priority Routine [...] section and content) DATE CREATED AUTHOR 10/12/2020 [facility] DATE CREATED AUTHOR AUTHOR'S ORGANIZ ATION 10/23/2020 [facility] DATE CREATED AUTHOR AUTHOR'S ORGANIZ ATION 10/26/2020 [facility] DATE CREATED AUTHOR AUTHOR'S ORGANIZ ATION 10/10/2022 [facility] DATE CREATED AUTHOR AUTHOR'S ORGANIZ ATION 11/14/2022 [facility] DATE CREATED AUTHOR AUTHOR'S ORGANIZ ATION 01/03/2024 [facility] REASON FOR VISIT (unrecogniz ed section and [...] Inactive Member Role Status Dates Floyd Rubi DO Attending Provider Active PHYSICIAN NO FAMILY [...] Care Provide r, Attending Provider Active Start: August 16, 2024 End: August 16, 2024 Goals (unrecognized section and content) Goals [...] BE BASED ON THE PRIMARY CLINICAL RECORDS. [employer] provides no warranty or guarantee of the accuracy or completeness of information in this document.
[2024-11-17 13:56] LABS: pH VBG 7.404 (7.330-7.430)
[2024-11-17 13:58] LABS: Basophils Percent Auto 0.1 % (0.2-2.0); Hemoglobin 11.3 g/dL (14.0-18.0); Immature Granulocytes Abs Auto 0.04 10^3/uL (0.00-0.03); Immature Granulocytes Pct Auto 0.3 % (0.0-0.5); Lymphocytes Absolute Auto 1.1 10^3/uL (1.2-3.8); Mean Corpuscular HGB Conc 33.2 g/dL (29.9-35.2); Mean Corpuscular Hemoglobin 28.7 pg (25.9-34.0); Mean Corpuscular Volume 86.3 fL (80.0-94.0); Mean Platelet Volume 10.7 fL (9.5-13.5); Monocytes Absolute Auto 0.7 10^3/uL (0.3-0.8); Neutrophils Absolute Auto 11.7 10^3/uL (1.4-6.5); Neutrophils Percent Auto 86.6 % (43.0-75.0); Platelet Count 312 10^3/uL (150-450); Red Blood Count 3.94 10^6/uL (4.70-6.10); Red Cell Distribution Width 15.2 % (11.0-15.0); White Blood Count 13.5 10^3/uL (4.0-11.0)
[2024-11-17 14:01] LABS: Bilirubin Urine NEGATIVE (NEGATIVE); Blood Urine MODERATE (NEGATIVE); Clarity Urine CLEAR (CLEAR); Color Urine LT. YELLOW (YELLOW); Glucose Urine UA NEGATIVE (NEGATIVE); Ketones Urine NEGATIVE (NEGATIVE); Leukocyte Esterase Urine TRACE (NEGATIVE); Nitrite Urine NEGATIVE (NEGATIVE); Protein Urine >=300 mg/dL (NEG/TRACE); Urobilinogen Urine 0.2 EU/dL (0.2-1.0)
[2024-11-17 14:06] LABS: Urine Microscopic Indicated YES
[2024-11-17 14:09] LABS: Prothrombin Time 10.6 sec (9.0-11.6)
[2024-11-17 14:15] LABS: Bacteria Urine TRACE #/HPF (NONE SEEN); Mucus Urine NONE SEEN (NONE SEEN)
[2024-11-17] MEDS: LABETALOL HCL 20 MG/4 ML SYRINGE IVP (14:15)
[2024-11-17] MEDS: ENALAPRILAT DIHYDRATE 1.25 MG/ML VIAL IV (14:15)
[2024-11-17] MEDS: 0.9 % SODIUM CHLORIDE 1,000 ML 1000 ML IV (14:15)
[2024-11-17 14:16] LABS: Cast Seen? NONE SEEN #/LPF (NONE SEEN); Crystals Seen? None Seen #/HPF (None Seen); Squamous Epithelial Cell Urine NONE SEEN #/LPF (NONE/RARE); Urine Culture Indicated NO
[2024-11-17 14:19] LABS: Alanine Aminotransferase 22 U/L (16-63); Albumin Globulin Ratio 0.8; Albumin Level 3.7 g/dL (3.4-5.0); Alkaline Phosphatase 66 U/L (46-116); Anion Gap 12.9; Aspartate Amino Transferase 30 U/L (15-37); BUN Creatinine Ratio 16.5; Bilirubin Total 0.6 mg/dL (0.2-1.0); Carbon Dioxide 27.9 mmol/L (21.0-32.0); Chloride 98 mmol/L (98-107); Estimated GFR (African America 24 (>=60 mL/min/1.73m^2); Estimated GFR (Non-African Ame 20 (>=60 mL/min/1.73m^2); Globulin 4.7 g/dL; Glucose 156 mg/dL (74-106); Sodium 136 mmol/L (136-145); Thyroid Stimulating Hormone 1.486 uIU/mL (0.358-3.740); Total Protein 8.4 g/dL (6.4-8.2); Troponin I High Sensitivity 37.5 pg/mL (4.0-76.1)
[2024-11-17 14:27] LABS: Lactate/Lactic Acid 1.8 mmol/L (0.4-2.0)
[2024-11-17 14:29] LABS: Potassium 2.8 mmol/L (3.5-5.1)
[2024-11-17] MEDS: POTASSIUM BICARBONATE/CIT 25 MEQ TABLET EFF 50 MEQ PO (14:40)
--- NOTE | 2024-11-17 15:00 | P.HP_ITS ---
HPI H&P: HPI History of Present Illness Chief complaint: GENERAL WEAKNESS AMS HYPERTENSION Narrative: Patient is a 79 y.o white male with past medical history of primary hypertension and Chronic Kidney Disease who presented to the ER today because he fell out of bed. His also noted increased confusion today. She said he was on the ground for about 1 hour until EMS arrived to help him up. Neither patient or his are good historians. He sees Dr. Fernando but has been awhile he has also not filled any medications since august. He was taking norvasc, clonidine and flomax. He says his appetite has not been the best. He appears very dry on exam. He denies any current issues or complaints. Just said he has been very weak lately. ER findings: K 2.8, sodium 138, Creatinine 3.03 ( baseline 2.28) Trop normal, proBNP 2300, WBC's 13.5, Hb 11.3; Covid, flu and RSV negative: UA was positive for protein, Leuks and blood. Patient had urinary retention so lepe cath was placed in the ER with about 1000cc output. Xr of the pelvis and chest showed no acute findings but moderate stool burden; CT head and C-spine- no acute changes. patient had elevated BP of 230/120 and was given labetolol, currently 163/102. On EKG patient appears to be in Afib vs Artifact, patinet CK was 425. Opioid HPI Opioid Management Most Recent Pain and Opioid Data: Last Pain Assessment 11/17/24 16:48 Last ORT Total Score 3 11/17/24 15:00 11/17/24 Last ORT Risk Category Low Risk 11/17/24 15:00 11/17/24 Review of Systems ROS Narrative ROS: a complete review of systems were reviewed with patient and are positive as below or listed in History of Chief Complaint. General: no fever, chills, night sweats Head: no headache, trauma, visual changes, nausea or vomiting Skin: no reported rashes, itching or sores Eyes: no blurriness of vision Ears: no reported hearing loss, vertigo, earache, or tinnitus Throat: no sore throat, hoarseness, swelling of neck, or tongue pain Heart: no chest pain Lungs: no shortness of breath or cough GI: no diarrhea or vomiting/nausea Urinary: no urinary urgency, frequency or pain Neuro: no numbness or tingling HEM: no bleeding issues or bruising ENDO: no thyroid problems Psych: no anxiety or depression PFSH PFSH Medical History (Updated 11/17/24 @ 17:26 by Valentina Morris DO) Kidney failure ?N19 - Unspecified kidney failure (ICD-10) Family History (Updated 11/17/24 @ 16:04 by Tracey Gustafson) Father Family history of myocardial infarction Social History Highest level of school completed/degree received: high school graduate Little interest or pleasure in doing things: not at all Feeling down, depressed, or hopeless: not at all Meds Home Medications and Allergies Allergies Allergy/AdvReac Type Severity Reaction Status Date / Time No Known Drug Allergies Allergy Verified 06/10/23 17:58 Exam Narrative Exam Narrative: General: Patient is alert, and oriented to person, not place or time, appears cachectic Skin: no visible rashes, or ulcers Head: atraumatic, acephalic Eyes: PERRLA, no nystagmus present, conjunctiva clear, no scleral icterus Ears: diminished gross auditory acuity Nose: symmetric, no discharge, no maxillary or frontal sinus tenderness Mouth/Throat: very dry mucus membranes Neck: no masses palpated, normal thyroid Heart: Normal rate and rhythm, no murmurs/rubs/gallops Lungs: no audible wheezes, crackles and normal breath sounds all lung enriquez Abdomen: Normal audible bowel sounds, no distension, No palpable masses, no organomegaly, no rebound/guarding/ or rigidity Musculoskeletal: muscle atrophy noted, ROM is limited due to being in hospital bed, no swelling bilateral lower extremities Neuro: CN II-X grossly intact Constitutional Vital Signs, click to edit/add: Last Vital Signs Temp 97.6 F 11/17/24 13:24 Pulse 74 11/17/24 14:45 Resp 16 11/17/24 14:45 BP 141/97 H 11/17/24 14:45 Pulse Ox 98 11/17/24 14:45 O2 Del Method Room Air 11/17/24 13:24 Results Labs Labs: Short CBC 11/17/24 Range/Units 13:44 WBC 13.5 H (4.0-11.0) 10^3/uL Hgb 11.3 L (14.0-18.0) g/dL Hct 34.0 L (42.0-54.0) % Plt Count 312 (150-450) 10^3/uL BMP 11/17/24 13:44 Sodium 136 Potassium 2.8 L* Chloride 98 Carbon Dioxide 27.9 BUN 50.0 H Creatinine 3.03 H Glucose 156 H Calcium 10.0 Liver Function 11/17/24 Range/Units 13:44 Total Bilirubin 0.6 (0.2-1.0) mg/dL AST 30 (15-37) U/L ALT 22 (16-63) U/L Alkaline Phosphatase 66 (46-116) U/L Albumin 3.7 (3.4-5.0) g/dL Urine 11/17/24 Range/Units 13:48 Urine Color Lt. yellow (YELLOW) Urine Clarity Clear (CLEAR) Urine pH 6.0 (5.0-9.0) Ur Specific Belcher 1.020 (1.005-1.025) Urine Protein >=300 A (NEG/TRACE) mg/dL Urine Glucose (UA) Negative (NEGATIVE) mg/dL ABG ABG results: 11/17/24 13:44 VBG pH 7.404 VBG pCO2 42.0 Assessment and Plan Assessment and Plan (1) Hypertensive emergency: Assessment and Plan: Patient given Labetolol, will start Coreg 6.125mg BID tonight. (2) Rhabdomyolysis: Assessment and Plan: CK elevation of 425, treat with IVF Qualifiers: Rhabdomyolysis type: traumatic Encounter type: initial encounter Qualified Code(s): T79.6XXA - Traumatic ischemia of muscle, initial encounter (3) Acute kidney injury: Assessment and Plan: from acute rhabdomyolysis and fall, along with urinary retention. Gentle IVF. continue Lepe Catheter (4) Acute hypokalemia: Assessment and Plan: replace orally (5) Metabolic encephalopathy: Assessment and Plan: uncertain baseline, able to carry on conversation, answered questions appropriately; he is hard of hearing. (6) Acute urinary retention: Assessment and Plan: add back flomax, continue Lepe (7) Fall: Assessment and Plan: CT head an neck reviewed, Xray pelvis and chest all negative for fractures, just constipation- i have ordered docusate and Miralax. pt/ot evaluation Qualifiers: Encounter type: initial encounter Qualified Code(s): W19.XXXA - Unspecified fall, initial encounter Plan Patient wishes to be a DNRCCA after discussion with him and , he said if something happens to him, just wave , he wants no heroic measures. I have signed DNRCCA SCD's and compression for DVT prophylaxis Patient is inpatient status and is expected to cross 2 midnights
[2024-11-17 15:36] LABS: Creatine Kinase 425 U/L (39-308)
[2024-11-17] MEDS: LACTATED RINGER'S SOLUTION 1,000 ML 50 ML IV (15:58)
--- NOTE | 2024-11-17 18:02 | DIETREC ---
Recommend 237 mL Ensure Clear TID w/meals d/t underweight. [facility] Text to Dr. Andrews Morris [id number].
[2024-11-17] MEDS: OLANZAPINE 10 MG VIAL IM (21:35)
[2024-11-17] MEDS: HEPARIN SODIUM (PORCINE) 5,000 UNIT/ML VIAL 5000 UNIT SUBQ (21:35)
[2024-11-17] MEDS: WATER FOR INJECTION, STERILE 20 ML VIAL 2.1 ML INJ ×2 (21:36→21:38)
[2024-11-17] MEDS: TAMSULOSIN HCL 0.4 MG CAPSULE PO (21:36)
[2024-11-17] MEDS: CARVEDILOL 6.25 MG TABLET PO (21:37)
[2024-11-17] MEDS: POTASSIUM CHLORIDE 10 MEQ ER TABLET 20 MEQ PO (21:37)
[2024-11-18] VITALS (20 sets, daily range): BP systolic 133–190; BP diastolic 84–103; PULSE 67–94; TEMP 36.3–37.2; O2SAT 94–98
[2024-11-18] MEDS: LACTATED RINGER'S SOLUTION 1,000 ML 50 ML IV (05:31)
[2024-11-18 06:10] LABS: Basophils Percent Auto 0.1 % (0.2-2.0); Eosinophils Percent Auto 0.1 % (0.9-7.0); Hematocrit 26.7 % (42.0-54.0); Hemoglobin 8.8 g/dL (14.0-18.0); Immature Granulocytes Abs Auto 0.02 10^3/uL (0.00-0.03); Immature Granulocytes Pct Auto 0.3 % (0.0-0.5); Lymphocytes Absolute Auto 1.5 10^3/uL (1.2-3.8); Lymphocytes Percent Auto 19.9 % (20.5-60.0); Mean Corpuscular Hemoglobin 28.7 pg (25.9-34.0); Mean Platelet Volume 10.8 fL (9.5-13.5); Monocytes Absolute Auto 0.6 10^3/uL (0.3-0.8); Monocytes Percent Auto 7.6 % (1.7-12.0); Neutrophils Absolute Auto 5.5 10^3/uL (1.4-6.5); Platelet Count 237 10^3/uL (150-450); Red Blood Count 3.07 10^6/uL (4.70-6.10); Red Cell Distribution Width 15.9 % (11.0-15.0); White Blood Count 7.6 10^3/uL (4.0-11.0)
[2024-11-18 06:26] LABS: Alanine Aminotransferase 18 U/L (16-63); Albumin Globulin Ratio 0.7; Albumin Level 2.6 g/dL (3.4-5.0); Alkaline Phosphatase 46 U/L (46-116); Aspartate Amino Transferase 25 U/L (15-37); Bilirubin Total 0.5 mg/dL (0.2-1.0); Calcium 8.6 mg/dL (8.5-10.1); Carbon Dioxide 29.3 mmol/L (21.0-32.0); Chloride 104 mmol/L (98-107); Chol HDL Ratio 2.7; Cholesterol 226 mg/dL (<=200); Estimated GFR (African America 24 (>=60 mL/min/1.73m^2); Estimated GFR (Non-African Ame 20 (>=60 mL/min/1.73m^2); Globulin 3.6 g/dL; Glucose 103 mg/dL (74-106); HDL Cholesterol 83 mg/dL (40-60); Potassium 3.3 mmol/L (3.5-5.1); Sodium 138 mmol/L (136-145); Total Protein 6.2 g/dL (6.4-8.2); Triglycerides 61 mg/dL (<=150); VLDL CHOLESTEROL 12.2 mg/dL
--- NOTE | 2024-11-18 06:44 | PC.NURSE ---
In the beginning of the shift the Patient was extremely agitated and confused. He was upset at his family for dumping him here. He was swearing and uncooperative. Notified Sadie RODRIGUEZ and she gave me orders for Zyprexa IM. The Zyprexa did help calm him down and he was more cooperative with his care and was able to get some sleep.
--- NOTE | 2024-11-18 08:39 | P.PN_ITS ---
Progress Note: Subjective Subjective Interval history: Patient is pleasantly confused where he is and who his son, Eduardo is. Eduardo reports this has been a decline that has been slowly progressive. He is not able to care for himself at home per son. He is not eating or drinking and gets weaker. Son reports history of CKD and was transferred to [place] before due to renal failure. He does not keep doctors appointments or take his medications. He also solidified patient is a DNRCCA with is accurate with what patient said yesterday. This was updated in the chart. Patient denies any current issues or complaints. I have updated son, Eduardo on patient's current condition. Exam Narrative Exam Narrative: General: Patient is alert, and oriented to person, not place or time, cachectic Skin: no visible rashes, or ulcers Head: atraumatic, acephalic Eyes: PERRLA, no nystagmus present, conjunctiva clear, no scleral icterus Ears: diminished gross auditory acuity Nose: symmetric, no discharge, no maxillary or frontal sinus tenderness Mouth/Throat: very dry mucus membranes Neck: no masses palpated, normal thyroid Heart: Normal rate and rhythm, no murmurs/rubs/gallops Lungs: no audible wheezes, crackles and normal breath sounds all lung enriquez Abdomen: Normal audible bowel sounds, no distension, No palpable masses, no organomegaly, no rebound/guarding/ or rigidity Musculoskeletal: muscle atrophy noted, ROM is limited due to being in hospital bed, no swelling bilateral lower extremities Neuro: CN II-X grossly intact Constitutional Vital Signs, click to edit/add: Last Vital Signs Temp 98.9 F 11/18/24 04:00 Pulse 74 11/18/24 08:00 Resp 18 11/18/24 04:00 BP 164/85 H 11/18/24 04:00 Pulse Ox 95 11/18/24 04:00 O2 Del Method Room Air 11/18/24 04:00 Progress Note: Objective Labs Labs: Short CBC 11/17/24 11/18/24 Range/Units 13:44 05:40 WBC 13.5 H 7.6 (4.0-11.0) 10^3/uL Hgb 11.3 L 8.8 L (14.0-18.0) g/dL Hct 34.0 L 26.7 L (42.0-54.0) % Plt Count 312 237 (150-450) 10^3/uL BMP 11/17/24 11/18/24 13:44 05:40 Sodium 136 138 Potassium 2.8 L* 3.3 L Chloride 98 104 Carbon Dioxide 27.9 29.3 BUN 50.0 H 46.0 H Creatinine 3.03 H 3.06 H Glucose 156 H 103 Calcium 10.0 8.6 Cardiac Enzymes 11/17/24 Range/Units 13:44 Total Creatine Kinase 425 H* (39-308) U/L Liver Function 11/17/24 11/18/24 Range/Units 13:44 05:40 Total Bilirubin 0.6 0.5 (0.2-1.0) mg/dL AST 30 25 (15-37) U/L ALT 22 18 (16-63) U/L Alkaline Phosphatase 66 46 (46-116) U/L Albumin 3.7 2.6 L (3.4-5.0) g/dL Urine 11/17/24 Range/Units 13:48 Urine Color Lt. yellow (YELLOW) Urine Clarity Clear (CLEAR) Urine pH 6.0 (5.0-9.0) Ur Specific [place] 1.020 (1.005-1.025) Urine Protein >=300 A (NEG/TRACE) mg/dL Urine Glucose (UA) Negative (NEGATIVE) mg/dL Progress Note: A&P Assessment and Plan (1) Rhabdomyolysis: Assessment and Plan: CK elevation of 425, down to 346, continue to treat with IVF Qualifiers: Encounter type: initial encounter Rhabdomyolysis type: traumatic Qualified Code(s): T79.6XXA - Traumatic ischemia of muscle, initial encounter (2) Severe malnutrition: Assessment and Plan: addition of Ensure Clear per dietary. (3) Acute kidney injury: Assessment and Plan: from acute rhabdomyolysis and fall, along with urinary retention. Gentle IVF. continue Diaz Catheter, ultrasound of bladder, ureter and kidneys today (4) Acute hypokalemia: Assessment and Plan: replace orally (5) Metabolic encephalopathy: Assessment and Plan: uncertain baseline, able to carry on conversation, answered questions appropriately; he is hard of hearing (6) Acute urinary retention: Assessment and Plan: add back flomax, continue Diaz (7) Fall: Assessment and Plan: CT head an neck reviewed, Xray pelvis and chest all negative for fractures, just constipation- i have ordered docusate and Miralax. pt/ot evaluation and possible penitentiary for rehab. Qualifiers: Encounter type: initial encounter Qualified Code(s): W19.XXXA - Unspecified fall, initial encounter Plan Patient is a DNRCCA SCD's and compression for DVT prophylaxis Patient will require 2 more days, probable discharge to [facility] Urinary Catheter Management Urinary Catheter Management Urethral: Cath placed during this visit: no
--- NOTE | 2024-11-18 08:41 | US_ITS ---
[address] [address] Patient Name: DENIZ GÓMEZ MRN: [id number] date: 1945 Sex: M Assigned Patient Location: [place] Current Patient Location: [place] Accession/Order Number: [id number] Exam Date: 11/18/2024 10:35 Report Date: 11/18/2024 11:57 At the request of: NILTON JIN Procedure: US renal bladder EXAMINATION: US renal bladder HISTORY: urinary retention and argenis COMPARISON: No relevant comparison available. TECHNIQUE: Ultrasound examination was performed of the bladder. FINDINGS: Right Kidney: Small in size measuring 6.3 x 3.6 x 3.2 cm. Diffuse increase in cortical echotexture. The cortex measures 0.5 cm. Area of anechoic echogenicity measuring 1.4 cm, cortical cyst. No hydronephrosis or solid cortical mass Left Kidney: Small in size measuring 7.5 x 4.8 x 4.4 cm. Diffuse increase in cortical echotexture. The cortex measures 0.7 cm. No hydronephrosis or solid cortical mass The anterior wall of urinary bladder is thickened. Diaz catheter is observed. Prevoid volume 76. Post void volume 0 mL The ureteral jets are not visualized Other: 2.3 cm cyst US/US renal bladder IMPRESSION: Renal atrophy with increased echotexture consistent with medical renal disease No post void urinary bladder residual Electronically authenticated by: ALYSA JOE Date: 11/18/2024 11:57
[2024-11-18 09:14] LABS: Creatine Kinase 346 U/L (39-308)
[2024-11-18] MEDS: CARVEDILOL 6.25 MG TABLET PO ×2 (09:56→20:50)
[2024-11-18] MEDS: POTASSIUM CHLORIDE 10 MEQ ER TABLET 20 MEQ PO ×2 (09:56→20:49)
[2024-11-18] MEDS: TAMSULOSIN HCL 0.4 MG CAPSULE PO (09:56)
[2024-11-18] MEDS: HEPARIN SODIUM (PORCINE) 5,000 UNIT/ML VIAL 5000 UNIT SUBQ (09:56)
--- NOTE | 2024-11-18 10:51 | SWNOTE1 ---
RENATO spoke with pt's son outside the room. Physical therapy in room working with pt. Pt's son stated pt has been having a slow decline in past few years mentally and physically. Pt's girlfriend does live with him, but she is not in good health and she will be moving out soon. Pt does have a walker at home, but does not always use it. Pt's son stated that patient does not remember his sons name right now. SW and pt's son spoke about rehab for pt. Physical therapy came out of room and joined conversation as well. Rehab is recommended at this point. Pt's son stated we knew this would be coming and we support whatever is recommended. SW and pt's son spoke about SNF and Medicare and also facilities in the area. Pt's son did ask about intermediate designer and spoke about pt's finances. SW did explain that he would have to spend down and then apply for Medicaid if he can't return home after SNF. He voiced understanding. Pt's son would like [facility] as they would help with transition to Medicaid and intermediate designer if needed. RENATO reached otu to Sadie at [facility], waiting to hear back.
--- NOTE | 2024-11-18 11:55 | CM.NOTE ---
Rounds made with Dr. Morris. Dr. Morris discusses plan of care with sonMichael. No discharge today.
--- NOTE | 2024-11-18 12:42 | SWNOTE1 ---
Sadie at [facility] voiced to send over referral. Referral sent to [facility]. Referral included face sheet, ED note, H&P, provider notes, case management report, nursing notes, diagnostic imaging, med list, and PT/OT notes.
--- NOTE | 2024-11-18 13:23 | SWNOTE1 ---
Important Message from Medicare reviewed and discussed with patient and pt's son. Pt and pt's son verbalized understanding and pt's son Michael signed the form. Original given to patient's son and copy placed in patient?s chart.
[2024-11-18] MEDS: ENSURE CLEAR 237 ML LIQUID PO ×2 (13:27→23:20)
--- NOTE | 2024-11-18 15:54 | SWNOTE1 ---
[facility] is not able to accept due to bed availability. SW called and spoke to pt's son. SW let him know that the [facility] and all other facilities take Medicare, just was not sure if family wanted SW to look in to only facilities that take Medicaid senior care. Pt's son is alright with anywhere and is alright with SW checking the [facility]. SW did advise that facilities will work with pt/families with discharge plans after rehab as well. Pt's son alright with SW sending referral to [facility]. Referral sent to [facility]. . Referral included face sheet, ED note, H&P, provider notes, case management report, wound consult, nursing notes, diagnostic imaging, med list, and PT/OT notes.
[2024-11-18] MEDS: LACTATED RINGER'S SOLUTION 1,000 ML 100 ML IV (20:49)
[2024-11-18] MEDS: HYDRALAZINE HCL 20 MG/ML VIAL 10 MG IVP (23:36)
[2024-11-19] VITALS (20 sets, daily range): BP systolic 126–182; BP diastolic 67–100; PULSE 83–108; TEMP 36.3–36.8; O2SAT 95–98
[2024-11-19] MEDS: HYDRALAZINE HCL 20 MG/ML VIAL 10 MG IVP ×2 (03:58→12:00)
[2024-11-19 06:16] LABS: Basophils Percent Auto 0.2 % (0.2-2.0); Eosinophils Absolute Auto 0.1 10^3/uL (0.0-0.7); Eosinophils Percent Auto 0.7 % (0.9-7.0); Hematocrit 30.1 % (42.0-54.0); Hemoglobin 9.9 g/dL (14.0-18.0); Immature Granulocytes Abs Auto 0.03 10^3/uL (0.00-0.03); Immature Granulocytes Pct Auto 0.3 % (0.0-0.5); Lymphocytes Absolute Auto 1.5 10^3/uL (1.2-3.8); Lymphocytes Percent Auto 17.4 % (20.5-60.0); Mean Corpuscular HGB Conc 32.9 g/dL (29.9-35.2); Mean Corpuscular Hemoglobin 28.9 pg (25.9-34.0); Mean Corpuscular Volume 87.8 fL (80.0-94.0); Mean Platelet Volume 11.3 fL (9.5-13.5); Monocytes Absolute Auto 0.7 10^3/uL (0.3-0.8); Monocytes Percent Auto 7.6 % (1.7-12.0); Neutrophils Absolute Auto 6.4 10^3/uL (1.4-6.5); Neutrophils Percent Auto 73.8 % (43.0-75.0); Platelet Count 263 10^3/uL (150-450); Red Blood Count 3.43 10^6/uL (4.70-6.10); Red Cell Distribution Width 15.9 % (11.0-15.0); White Blood Count 8.6 10^3/uL (4.0-11.0)
[2024-11-19 06:35] LABS: Alanine Aminotransferase 23 U/L (16-63); Albumin Level 2.6 g/dL (3.4-5.0); Alkaline Phosphatase 50 U/L (46-116); Anion Gap 11.3; Aspartate Amino Transferase 21 U/L (15-37); BUN Creatinine Ratio 18.6; Bilirubin Total 0.3 mg/dL (0.2-1.0); Calcium 8.6 mg/dL (8.5-10.1); Chloride 104 mmol/L (98-107); Creatine Kinase 159 U/L (39-308); Estimated GFR (African America 26 (>=60 mL/min/1.73m^2); Estimated GFR (Non-African Ame 21 (>=60 mL/min/1.73m^2); Glucose 125 mg/dL (74-106); Potassium 3.3 mmol/L (3.5-5.1); Sodium 137 mmol/L (136-145); Total Protein 6.6 g/dL (6.4-8.2)
[2024-11-19 06:37] LABS: Albumin Globulin Ratio 0.7
[2024-11-19] MEDS: ENSURE CLEAR 237 ML LIQUID PO ×3 (07:17→22:01)
[2024-11-19] MEDS: HEPARIN SODIUM (PORCINE) 5,000 UNIT/ML VIAL 5000 UNIT SUBQ ×2 (09:01→22:02)
[2024-11-19] MEDS: LACTATED RINGER'S SOLUTION 1,000 ML 100 ML IV ×2 (09:01→18:35)
[2024-11-19] MEDS: POTASSIUM CHLORIDE 10 MEQ ER TABLET 20 MEQ PO ×2 (09:02→22:01)
[2024-11-19] MEDS: TAMSULOSIN HCL 0.4 MG CAPSULE PO (09:02)
[2024-11-19] MEDS: CARVEDILOL 6.25 MG TABLET PO ×2 (09:02→22:01)
--- NOTE | 2024-11-19 09:54 | SWNOTE1 ---
[facility] is able to accept once pt is medically stable.
--- NOTE | 2024-11-19 10:32 | PT.DAILY ---
Physical Therapy Daily Note PT Daily Note/Assess Start: 11/19/24 10:30 Freq: Status: Active Protocol: Document 11/19/24 10:30 NIRAJ (Rec: 11/19/24 10:31 [email or web address] [id number]) Visit Not Completed Visit Not Completed Visit Not Completed Pt refusing Due to: Other Reason Visit Pt is resting upon arrival. Family just exiting room. Not Completed Pt lethargic - keeps eyes closed during conversation. Refuses PT today. Edu on importance to participate but cont to refuse. Remains supine resting. Physical Therapy Daily Note/Assessment Time In/Time Out Time In 10:10 Time Out 10:12 GG. Functional Abilities and Goals-Complete for Swing Bed Patients Only [id number]. Self-Care [id number]. Mobility
--- NOTE | 2024-11-19 11:00 | CM.NOTE ---
Rounds made with Dr. Mo, no discharge today. Pt will discharge skilled to [facility] when medically stable.
--- NOTE | 2024-11-19 14:16 | PM.PN ---
Progress Note: Subjective Subjective Interval history: Patient confused this am. Not as alert and increased weakness. Labs continue to improve. BP elevated. Continues to have severe weakness and difficulty with transfers. Denies nausea or emesis. No SOB or cough. No chest pain or palpitations. Exam Constitutional Vital Signs, click to edit/add: Last Vital Signs Temp 98.1 F 11/19/24 11:55 Pulse 96 H 11/19/24 14:00 Resp 18 11/19/24 11:55 BP 140/67 11/19/24 13:24 Pulse Ox 98 11/19/24 11:55 O2 Del Method Room Air 11/19/24 11:55 Documenting provider has reviewed patient's vital signs: yes Common normals: no apparent distress and alert HENMT Common normals: normocephalic Eye Common normals: PERRL and EOMs intact bilaterally Respiratory Common normals: normal respiratory effort and clear to auscultation bilaterally Cardio Common normals: regular rate, regular rhythm, no gallops, no murmurs and no rub GI Common normals: Normal to inspection, nondistended, normoactive bowel sounds present and non-tender Extremity Common normals: no pedal edema Progress Note: Objective Labs Labs: Short CBC 11/19/24 Range/Units 05:38 WBC 8.6 (4.0-11.0) 10^3/uL Hgb 9.9 L (14.0-18.0) g/dL Hct 30.1 L (42.0-54.0) % Plt Count 263 (150-450) 10^3/uL BMP 11/19/24 05:38 Sodium 137 Potassium 3.3 L Chloride 104 Carbon Dioxide 25.0 BUN 54.0 H Creatinine 2.91 H Glucose 125 H Calcium 8.6 Cardiac Enzymes 11/19/24 Range/Units 05:38 Total Creatine Kinase 159 (39-308) U/L Liver Function 11/19/24 Range/Units 05:38 Total Bilirubin 0.3 (0.2-1.0) mg/dL AST 21 (15-37) U/L ALT 23 (16-63) U/L Alkaline Phosphatase 50 (46-116) U/L Albumin 2.6 L (3.4-5.0) g/dL Progress Note: A&P Assessment and Plan (1) Hypertensive emergency: (2) Rhabdomyolysis: Qualifiers: Rhabdomyolysis type: traumatic Encounter type: initial encounter Qualified Code(s): T79.6XXA - Traumatic ischemia of muscle, initial encounter (3) Acute kidney injury: (4) Acute hypokalemia: (5) Metabolic encephalopathy: (6) Acute urinary retention: (7) Fall: Qualifiers: Encounter type: initial encounter Qualified Code(s): W19.XXXA - Unspecified fall, initial encounter (8) Weakness: (9) Chronic kidney disease, stage 4 (severe): (10) Severe malnutrition: Plan Patient slowly improving and remains confused. Monitor labs. Continued weakness and continue PT. BP remains elevated and add norvasc. Encourage PO intake. Likely will need SNF upon discharge. Urinary Catheter Management Urinary Catheter Management Urethral: Cath placed during this visit: no
[2024-11-19] MEDS: AMLODIPINE BESYLATE 5 MG TABLET PO (14:29)
--- NOTE | 2024-11-19 15:58 | SWNOTE1 ---
SW completed HENS. SW spoke with family and they are able to transport pt to [place] tomorrow if pt medically stable for discharge.
--- NOTE | 2024-11-19 16:56 | PT.DAILY ---
Physical Therapy Daily Note PT Daily Note/Assess Start: 11/19/24 10:30 Freq: Status: Active Protocol: Document 11/19/24 16:48 [id number] (Rec: 11/19/24 16:56 [id number] No Response) Physical Therapy Daily Note/Assessment Time In/Time Out Time In 04:25 Time Out 04:40 Pain In Pain Level 0 Pain Out Pain Level 0 Subjective Subjective Patient received seated in chair at bedside with chair alarm engaged. Patient agreeable to participate with PT. Therapeutic Exercise Time Therapeutic Exercise 4 Minutes (minutes) Therapeutic Exercise 0 Units Therapeutic Exercise Treatment Therapeutic Exercise Seated KATY LE ther ex to increase strength to improve Treatment functional mobility. 10 reps of ankle pumps, SLR, LAQ and hip ABD with pillow. Heavy verbal cues to redirect and perform ther ex. Therapeutic Activity Time Therapeutic Activity 11 Minutes (minutes) Therapeutic Activity 1 Units Therapeutic Activity Treatment Chair Transfer Contact Guard Assist Ability Therapeutic Activity Sit to stand to 2WW is CGA +1 with VC's for safe hand Comments placement. Patient ambulated ~4 feet forward and 4 feet backwards with 2WW, gait belt and verbal/tactile cues for advancement for KATY LE. Patient verbalizes considerable R knee pain with FWB. Patient returned to chair with KATY LE elevated, chair alarm re-engaged, CBWR and tray placed beside chair. Nursing notified of patient performance/participation and acknowledge patient placement. Total Physical Therapy Time Total Therapy 15 Minutes Total Physical 1 Therapy Units Summary Daily Note Summary Patient is easily distracted and loses focus on task. Requires heavy verbal cues for walker management and advancement of LE's. Patient demonstrates decreased weight bearing on R LE during stance phase of gait due to verbalized increased pain. Patient would benefit from SNF to address functional deficit to return to PLOF.
--- NOTE | 2024-11-19 18:34 | NUTR.NU ---
Dietitian consult completed; unable to elicit useful diet info from pt, who did not answer questions appropriately. PO intakes of therapeutic diet are generally good. Nutrition assessment to follow.
[2024-11-19] MEDS: OLANZAPINE 10 MG VIAL IM (22:01)
[2024-11-20] VITALS (9 sets, daily range): BP systolic 155–186; BP diastolic 87–98; PULSE 88–100; TEMP 36.9–38; O2SAT 91–94
[2024-11-20] MEDS: LACTATED RINGER'S SOLUTION 1,000 ML 100 ML IV (05:51)
[2024-11-20] MEDS: ENSURE CLEAR 237 ML LIQUID PO (05:52)
[2024-11-20] MEDS: HYDRALAZINE HCL 20 MG/ML VIAL 10 MG IVP (06:06)
[2024-11-20 06:47] LABS: Basophils Percent Auto 0.2 % (0.2-2.0); Eosinophils Absolute Auto 0.1 10^3/uL (0.0-0.7); Eosinophils Percent Auto 0.8 % (0.9-7.0); Hematocrit 29.2 % (42.0-54.0); Hemoglobin 9.8 g/dL (14.0-18.0); Immature Granulocytes Abs Auto 0.03 10^3/uL (0.00-0.03); Immature Granulocytes Pct Auto 0.4 % (0.0-0.5); Lymphocytes Absolute Auto 1.6 10^3/uL (1.2-3.8); Lymphocytes Percent Auto 19.1 % (20.5-60.0); Mean Corpuscular HGB Conc 33.6 g/dL (29.9-35.2); Mean Corpuscular Hemoglobin 29.3 pg (25.9-34.0); Mean Corpuscular Volume 87.4 fL (80.0-94.0); Mean Platelet Volume 11.6 fL (9.5-13.5); Monocytes Absolute Auto 0.7 10^3/uL (0.3-0.8); Monocytes Percent Auto 8.2 % (1.7-12.0); Neutrophils Absolute Auto 5.9 10^3/uL (1.4-6.5); Neutrophils Percent Auto 71.3 % (43.0-75.0); Platelet Count 235 10^3/uL (150-450); Red Blood Count 3.34 10^6/uL (4.70-6.10); Red Cell Distribution Width 15.9 % (11.0-15.0); White Blood Count 8.3 10^3/uL (4.0-11.0)
[2024-11-20 07:13] LABS: Alanine Aminotransferase 18 U/L (16-63); Albumin Globulin Ratio 0.7; Albumin Level 2.7 g/dL (3.4-5.0); Alkaline Phosphatase 48 U/L (46-116); Anion Gap 14.4; Aspartate Amino Transferase 18 U/L (15-37); BUN Creatinine Ratio 15.4; Bilirubin Total 0.5 mg/dL (0.2-1.0); Calcium 8.5 mg/dL (8.5-10.1); Carbon Dioxide 25.6 mmol/L (21.0-32.0); Chloride 103 mmol/L (98-107); Estimated GFR (African America 29 (>=60 mL/min/1.73m^2); Estimated GFR (Non-African Ame 24 (>=60 mL/min/1.73m^2); Glucose 120 mg/dL (74-106); Sodium 140 mmol/L (136-145); Total Protein 6.7 g/dL (6.4-8.2)
[2024-11-20 07:15] LABS: Creatine Kinase 77 U/L (39-308)
[2024-11-20] MEDS: CARVEDILOL 12.5 MG TABLET PO (09:00)
[2024-11-20] MEDS: AMLODIPINE BESYLATE 5 MG TABLET PO (09:00)
[2024-11-20] MEDS: TAMSULOSIN HCL 0.4 MG CAPSULE PO (09:00)
[2024-11-20] MEDS: POTASSIUM CHLORIDE 10 MEQ ER TABLET 20 MEQ PO (09:00)
[2024-11-20] MEDS: POTASSIUM CHLORIDE 40 MEQ in 0.9 % SODIUM CHLORIDE 250 ML 67.5 MEQ IV (09:04)
--- NOTE | 2024-11-20 10:43 | PT.DAILY ---
Physical Therapy Daily Note PT Daily Note/Assess Start: 11/19/24 10:30 Freq: Status: Active Protocol: Document 11/20/24 10:38 [id number] (Rec: 11/20/24 10:42 [id number]) Visit Not Completed Visit Not Completed Visit Not Completed Pt level of alertness,Inability to participate,Other Due to: Other Reason Visit Per nursing patient was aggressive and combative Not Completed throughout the night and earlier this morning. Attempt to awaken but patient is somnolent. Physical Therapy Daily Note/Assessment Time In/Time Out Time In 09:34 Time Out 09:36 Subjective Subjective Attempted to awaken patient to participate with PT. Unable as patient is somnolent. Will allow patient to rest and attempt another day. Summary Daily Note Summary Patient is somnolent and due to recent behavior treatment held. Will attempt another day when patient is alert and able to participate safely. GG. Functional Abilities and Goals-Complete for Swing Bed Patients Only [id number]. Self-Care [id number]. Mobility
--- NOTE | 2024-11-20 11:15 | P.DS_ITS ---
DS: Providers Provider Date of admission: 11/17/24 14:58 Primary care physician: Soham Fernando DO Consults: 11/17/24 14:54 Occupational Therapy Eval and Treat Routine Reason for consultation: weakness Has provider been notified: No Physical Therapy Eval and Treat Routine Reason for consultation: weakness Has provider been notified: No 11/17/24 17:30 Consult to Dietitian Routine Reason for consultation: malnutrition Has provider been notified: No DS: Diagnosis Discharge Diagnosis (1) Hypertensive emergency: (2) Rhabdomyolysis: Qualifiers: Encounter type: initial encounter Rhabdomyolysis type: traumatic Qualified Code(s): T79.6XXA - Traumatic ischemia of muscle, initial encounter (3) Acute kidney injury: (4) Acute hypokalemia: (5) Metabolic encephalopathy: (6) Acute urinary retention: (7) Fall: Qualifiers: Encounter type: initial encounter Qualified Code(s): W19.XXXA - Unspecified fall, initial encounter (8) Weakness: (9) Chronic kidney disease, stage 4 (severe): (10) Severe malnutrition: Plan (1) Hypertensive emergency: (2) Rhabdomyolysis: Qualifiers: Rhabdomyolysis type: traumatic Encounter type: initial encounter Qualified Code(s): T79.6XXA - Traumatic ischemia of muscle, initial encounter (3) Acute kidney injury: (4) Acute hypokalemia: (5) Metabolic encephalopathy: (6) Acute urinary retention: (7) Fall: Qualifiers: Encounter type: initial encounter Qualified Code(s): W19.XXXA - Unspec ified fall, initial encounter (8) Weakness: (9) Chronic kidney disease, stage 4 (severe): (10) Severe malnutrition: DS: Summary Hospital Course Hospital Course: Patient was seen and evaluated in the emergency room setting, found to have hypertensive urgency, acute rhabdomyolysis with acute kidney injury, mild, patient has a history of chronic kidney disease, he was given IV fluids, blood pressure medications were adjusted, blood pressure still somewhat elevated today, blood pressure medications were further adjusted, overall low is medically stable he does have some hypokalemia which we will improve with IV potassium today, but with his creatinine kinase improving, white blood cell count improving and no further left shift, he can be discharged to rehab, continue to follow medically there. Medications see list. Follow-up with PCP at discharge from rehab Status at Discharge Overall status at discharge: patient is not back to baseline Time Spent with Patient Time attestation: Total time spent providing and/or coordinating discharge services: Time spent: greater than 30 minutes Exam Constitutional Vital Signs, click to edit/add: Last Vital Signs Temp 98.4 F 11/20/24 07:43 Pulse 100 H 11/20/24 09:58 Resp 18 11/20/24 07:43 BP 162/98 H 11/20/24 07:43 Pulse Ox 94 L 11/20/24 07:43 O2 Del Method Room Air 11/20/24 07:43 Common normals: apparent distress (Patient not very cooperative, unable to establish his orientation) Chest Common normals: inspection of chest normal and palpation of chest normal Respiratory Common normals: normal respiratory effort and no retractions Cardio Common normals: regular rate and regular rhythm Extremity Common normals: normal to inspection DS: Data Data Completed and Pending Labs on day of discharge: Labs from last 24 hours 11/20/24 06:12 WBC 8.3 RBC 3.34 L Hgb 9.8 L Hct 29.2 L MCV 87.4 MCH 29.3 MCHC 33.6 RDW 15.9 H Plt Count 235 MPV 11.6 Neut % (Auto) 71.3 Lymph % (Auto) 19.1 L [place] % (Auto) 8.2 Eos % (Auto) 0.8 L Baso % (Auto) 0.2 Neut # (Auto) 5.9 Lymph # (Auto) 1.6 [place] # (Auto) 0.7 Eos # (Auto) 0.1 Baso # (Auto) 0.0 Abs Immat Gran (auto) 0.03 Imm/Tot Granulo (auto) 0.4 Sodium 140 Potassium 3.0 L Chloride 103 Carbon Dioxide 25.6 Anion Gap 14.4 BUN 40.0 H Creatinine 2.60 H Est GFR ( Amer) 29 L Est GFR (Non-Af Amer) 24 L BUN/Creatinine Ratio 15.4 Glucose 120 H Calcium 8.5 Total Bilirubin 0.5 AST 18 ALT 18 Alkaline Phosphatase 48 Total Creatine Kinase 77 Total Protein 6.7 Albumin 2.7 L Globulin 4.0 Albumin/Globulin Ratio 0.7 Preliminary micro results at discharge 11/17/24 13:49 Blood Culture Result 2 - Preliminary Blood NO GROWTH AT 36-48 HOURS. FINAL TO FOLLOW. 11/17/24 13:44 Blood Culture Result 1 - Preliminary Blood NO GROWTH AT 36-48 HOURS. FINAL TO FOLLOW. Discharge Plan Discharge Disposition: Xfer SNF Condition: Good Discharge Medications: New carvedilol 12.5 mg Tablet 12.5 mg PO BID Qty: 60 11RF amlodipine 5 mg Tablet 5 mg PO QD Qty: 30 11RF tamsulosin 0.4 mg Capsule 0.4 mg PO QD Qty: 30 11RF olanzapine 10 mg Recon Soln 10 mg IM Q8H PRN (Reason: Agitation) Qty: 30 11RF Print Language: Italian Forms: Portal Instructions
--- NOTE | 2024-11-20 12:25 | PC.NURSE ---
[facility] called and given report.
--- NOTE | 2024-11-20 12:25 | PC.NURSE ---
Spoke with nicole, sig other. Informed of discharge. States she will call patient's son to transfer to [place]. Asked Nicole to please call floor back regarding time that son should be expected to arrive to pharmacy picking tech father.. states she will call him now, and call hospital back. Number and floor extension given to Nicole with verbalized understanding.
== END 2024-11-20 13:12 | DRG 640 ==
LOC: ER 14:40 → MS 15:33
PROVIDERS: Physician Assistant; Admitting Provider Family Medicine; Emergency Provider Emergency Medicine; PCP Internal Medicine; Visit Provider Family Medicine
DX: E87.6 Hypokalemia (principal); E43 Unspecified severe protein-calorie malnutrition; G93.41 Metabolic encephalopathy; I16.1 Hypertensive emergency; M62.82 Rhabdomyolysis; N17.9 Acute kidney failure, unspecified; I12.9 Hypertensive chronic kidney disease with stage 1 through stage 4 chronic kidney disease, or unspecified chronic kidney disease; N18.4 Chronic kidney disease, stage 4 (severe); Z68.1 Body mass index [BMI] 19.9 or less, adult; Z66 Do not resuscitate; K59.00 Constipation, unspecified; R29.6 Repeated falls; R33.9 Retention of urine, unspecified; R53.1 Weakness; W06.XXXA Fall from bed, initial encounter; Y92.003 Bedroom of unspecified non-institutional (private) residence as the place of occurrence of the external cause; R94.31 Abnormal electrocardiogram [ECG] [EKG]
CPT/HCPCS: 36415; 70450; 71045; 72125; 72170; 76770; 80053; 80061; 81001; 82550; 82800; 83605; 83880; 84443; 84484; 85025; 85610; 87040; 87420; 87804; 87811; 93005; 96361; 96374; 96375; 97162; 97165; 97530; 99285; J0360; J1644; J1920; J2359; J3480

== ENCOUNTER 2024-12-27 14:52 | Observation (INO) | payer MEDICARE, OTHER, SELFPAY ==
[2024-12-27] VITALS (25 sets, daily range): BP systolic 122–174; BP diastolic 74–94; PULSE 61–89; TEMP 36.4–36.8; O2SAT 94–98; BMI 27.9
--- NOTE | 2024-12-27 14:56 | ECG_ITS ---
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
--- NOTE | 2024-12-27 14:57 | ED.AMS1 ---
HPI - Altered Mental Status General Chief Complaint: Altered Mental Status Stated Complaint: SEIZURE Time Seen by Provider: 12/27/24 14:56 Source: patient and EMR Mode of arrival: ambulance Limitations: altered mental status History of Present Illness HPI narrative: Patient is a 79-year-old male who presents to the emergency department by ambulance from the group home where he is a resident for evaluation of possible seizure-like activity with an unresponsive episode. skilled nursing report is the primary source of history as the patient has a history of dementia and is alert and oriented to self only. This is his baseline. skilled nursing staff states that today the patient was not quite himself, he went to therapy this afternoon where he had an unresponsive episode and was witnessed to have seizure-like activity although this was not described by EMS or the group home. After the episode, patient was back to baseline with stable vital signs and complaining of nausea. There was no reported postictal period. Patient has an indwelling Diaz catheter, no noted incontinence. No injury to the tongue. He has a history of metabolic encephalopathy, TIA but no noted history of seizures. Documentation shows he is a DNR [facility] arrest. Patient has no medical complaints on arrival to the ER. Zofran was given by EMS prior to arrival. Related Data Home Medications ?Medication ?Instructions ?Recorded ?Confirmed amlodipine 5 mg tablet 10 mg PO QD 12/27/24 12/27/24 citalopram 20 mg tablet (Celexa) 20 mg PO BEDTIME 12/27/24 12/27/24 melatonin 5 mg capsule 5 mg PO BEDTIME 12/27/24 12/27/24 quetiapine 25 mg tablet (Seroquel) 25 mg PO DAILY 12/27/24 12/27/24 Previous Rx's ?Medication ?Instructions ?Recorded carvedilol 12.5 mg tablet 12.5 mg PO BID #60 tabs 11/20/24 olanzapine 10 mg intramuscular 10 mg IM Q8H PRN Agitation #30 ea 11/20/24 solution tamsulosin 0.4 mg capsule 0.4 mg PO QD #30 caps 11/20/24 Allergies Allergy/AdvReac Type Severity Reaction Status Date / Time No Known Drug Allergies Allergy Verified 06/10/23 17:58 Review of Systems ROS Status of ROS unobtainable due to medical condition and unobtainable due to mental status [facility] Medical History (Updated 12/27/24 @ 17:31 by ARETHA Bautista) Altered mental status, unspecified ?R41.82 - Altered mental status, unspecified (ICD-10) Chronic kidney disease, stage 4 (severe) ?N18.4 - Chronic kidney disease, stage 4 (severe) (ICD-10) Severe malnutrition ?E43 - Unspecified severe protein-calorie malnutrition (ICD-10) Fall ?W19.XXXA - Unspecified fall, initial encounter (ICD-10) Rhabdomyolysis ?M62.82 - Rhabdomyolysis (ICD-10) Acute urinary retention ?R33.8 - Other retention of urine (ICD-10) Hypertensive emergency ?I16.1 - Hypertensive emergency (ICD-10) Metabolic encephalopathy ?G93.41 - Metabolic encephalopathy (ICD-10) Acute kidney injury ?N17.9 - Acute kidney failure, unspecified (ICD-10) Acute hypokalemia ?E87.6 - Hypokalemia (ICD-10) Weakness ?R53.1 - Weakness (ICD-10) Altered mental status ?R41.82 - Altered mental status, unspecified (ICD-10) Laceration Closed head injury ?S09.90XA - Unspecified injury of head, initial encounter (ICD-10) Abrasion ?T14.8XXA - Other injury of unspecified body region, initial encounter (ICD-10) Hypertension ?I10 - Essential (primary) hypertension (ICD-10) Kidney failure ?N19 - Unspecified kidney failure (ICD-10) Family History (Updated 11/17/24 @ 16:04 by Tracey Gustafson) Father Family history of myocardial infarction Social History Highest level of school completed/degree received: high school graduate Little interest or pleasure in doing things: not at all Feeling down, depressed, or hopeless: not at all Exam Narrative Exam Narrative: Gen.: Awake, alert, in no distress Head: Normocephalic, atraumatic ENT: Moist mucous membranes, no facial or dental injury Respiratory: No respiratory distress, lungs clear bilaterally Cardio: Regular rate and rhythm Gastrointestinal: Abdomen is soft, nondistended and nontender to palpation Extremities: Moves extremities equally, no injuries noted Psych: Normal mood and affect Neuro: Alert to person. No slurred speech or facial drooping noted. Patient moves all extremities Skin: Warm, dry, intact Constitutional Vital Signs, click to edit/add: Last Vital Signs Temp 97.6 F 12/27/24 14:55 Pulse 62 12/27/24 14:55 Resp 18 12/27/24 14:55 BP 126/74 12/27/24 14:55 Pulse Ox 98 12/27/24 15:16 O2 Del Method Room Air 12/27/24 15:16 Course Vital Signs Vital signs: Vital Signs Temperature 97.6 F 12/27/24 14:55 Pulse Rate 62 12/27/24 14:55 Respiratory Rate 18 12/27/24 14:55 Blood Pressure 126/74 12/27/24 14:55 Pulse Oximetry 96 12/27/24 14:55 Oxygen Delivery Method Room Air 12/27/24 14:55 Temperature 97.6 F 12/27/24 14:55 Pulse Rate 62 12/27/24 14:55 Respiratory Rate 18 12/27/24 14:55 Blood Pressure 126/74 12/27/24 14:55 Pulse Oximetry 98 12/27/24 15:16 Oxygen Delivery Method Room Air 12/27/24 15:16 MDM - Altered Mental Status MDM Narrative Medical decision making narrative: Patient noted to have chronic anemia, chronic kidney disease and urinary tract infection. CT of the brain, chest x-ray read by the radiologist with no acute process noted. Labs are otherwise unremarkable and the patient is hemodynamically stable. Treated with IV Rocephin. Discussed with Dr. Fernando, his primary care provider at the [facility] and we feel the patient may not be appropriate for discharge back to the group home, he is admitted for observation, possible unresponsive episode with syncope versus seizure-like activity. Patient's son at bedside is in agreement with this and the patient is stable at time of admission to hospitalist at this facility. SUPERVISED APC VISIT, PHYSICIAN ATTESTATION: Based on the medical record the care appears appropriate. ? Medical Records Attestation: I reviewed the patient's medical records. Lab Data Attestation: I reviewed the patient's lab results. Labs: Lab Results 12/27/24 12/27/24 Range/Units 15:00 16:15 WBC 8.9 (4.0-11.0) 10^3/uL RBC 2.98 L (4.70-6.10) 10^6/uL Hgb 8.6 L (14.0-18.0) g/dL Hct 26.6 L (42.0-54.0) % MCV 89.3 (80.0-94.0) fL MCH 28.9 (25.9-34.0) pg MCHC 32.3 (29.9-35.2) g/dL RDW 15.6 H (11.0-15.0) % Plt Count 329 (150-450) 10^3/uL MPV 9.7 (9.5-13.5) fL Neut % (Auto) 73.3 (43.0-75.0) % Lymph % (Auto) 17.4 L (20.5-60.0) % [place] % (Auto) 6.7 (1.7-12.0) % Eos % (Auto) 1.6 (0.9-7.0) % Baso % (Auto) 0.5 (0.2-2.0) % Neut # (Auto) 6.5 (1.4-6.5) 10^3/uL Lymph # (Auto) 1.5 (1.2-3.8) 10^3/uL [place] # (Auto) 0.6 (0.3-0.8) 10^3/uL Eos # (Auto) 0.1 (0.0-0.7) 10^3/uL Baso # (Auto) 0.0 (0.0-0.1) 10^3/uL Abs Immat Gran (auto) 0.04 H (0.00-0.03) 10^3/uL Imm/Tot Granulo (auto) 0.5 (0.0-0.5) % PT 10.7 (9.0-11.6) sec INR 1.01 Sodium 142 (136-145) mmol/L Potassium 3.4 L (3.5-5.1) mmol/L Chloride 105 (98-107) mmol/L Carbon Dioxide 26.8 (21.0-32.0) mmol/L Anion Gap 13.6 BUN 39.0 H (7.0-18.0) mg/dL Creatinine 2.96 H (0.70-1.30) mg/dL Est GFR ( Amer) 25 L (>=60 mL/min/1.73m^2) Est GFR (Non-Af Amer) 21 L (>=60 mL/min/1.73m^2) BUN/Creatinine Ratio 13.2 Glucose 121 H (74-106) mg/dL Lactate 1.4 (0.4-2.0) mmol/L Calcium 8.8 (8.5-10.1) mg/dL Magnesium 2.4 (1.8-2.4) mg/dL Total Bilirubin 0.3 (0.2-1.0) mg/dL AST 22 (15-37) U/L ALT 29 (16-63) U/L Alkaline Phosphatase 63 (46-116) U/L Troponin I High Sens 8.7 (4.0-76.1) pg/mL Total Protein 7.6 (6.4-8.2) g/dL Albumin 2.8 L (3.4-5.0) g/dL Globulin 4.8 g/dL Albumin/Globulin Ratio 0.6 TSH 2.103 (0.358-3.740) uIU/mL Urine Color Lt. yellow (YELLOW) Urine Clarity Clear (CLEAR) Urine pH 6.0 (5.0-9.0) Ur Specific [place] 1.020 (1.005-1.025) Urine Protein >=300 A (NEG/TRACE) mg/dL Urine Glucose (UA) Negative (NEGATIVE) mg/dL Urine Ketones Negative (NEGATIVE) mg/dL Urine Occult Blood Negative (NEGATIVE) Urine Nitrite Negative (NEGATIVE) Urine Bilirubin Negative (NEGATIVE) Urine Urobilinogen 0.2 (0.2-1.0) EU/dL Ur Leukocyte Esterase Small A (NEGATIVE) Urine RBC 0-2 (0-2) #/HPF Urine WBC 5-10 A (NONE SEEN) #/HPF Ur Squamous Epith Cells Few A (NONE/RARE) #/LPF Urine Crystals None seen (None Seen) #/HPF Urine Bacteria Small A (NONE SEEN) #/HPF Urine Casts None seen (NONE SEEN) #/LPF Urine Mucus None seen (NONE SEEN) Ur [place] Indicated[place] [place] scan - head: Attestation: I have reviewed the pertinent imaging results. Radiologist's impression: ITS Impressions Chest X-Ray 12/27/24 15:35 IMPRESSION: No acute cardiopulmonary pathology. Impression dictated by: Berry Raza M.D.12/27/2024 4:40 PM Dictation Location: [place] [address] Electronically authenticated by: [id number] Y Date: 12/27/2024 16:[address] 12/27/24 15:35 IMPRESSION: No acute intracranial pathology. Chronic age-related neurodegenerative changes are redemonstrated as above. Impression dictated by: Berry Raza M.D.12/27/2024 4:43 PM Dictation Location[facility] Electronically authenticated by: [id number] Y Date: 12/27/2024 16:43 ECG Data Attestation: I personally reviewed and interpreted this ECG as follows: (Normal sinus rhythm at a rate of 61, no acute ST elevation or ectopy. EKG reviewed by attending physician) Discharge Plan Discharge Chief Complaint: Altered Mental Status Clinical Impression: Acute UTI, Altered mental status, Seizure-like activity Patient Disposition: Admitted as Observation Time of Disposition Decision: 17:31 Condition: Good Prescriptions / Home Meds: No Action carvedilol 12.5 mg Tablet 12.5 mg PO BID Qty: 60 11RF tamsulosin 0.4 mg Capsule 0.4 mg PO QD Qty: 30 11RF olanzapine 10 mg Recon Soln 10 mg IM Q8H PRN (Reason: Agitation) Qty: 30 11RF citalopram [Celexa] 20 mg tablet 20 mg PO BEDTIME melatonin 5 mg capsule 5 mg PO BEDTIME quetiapine [Seroquel] 25 mg tablet 25 mg PO DAILY amlodipine 5 mg Tablet 10 mg PO QD Print Language: Estonian Referrals: Soham Fernando DO [Primary Care Provider] - 1 week
[2024-12-27 15:16] LABS: Basophils Percent Auto 0.5 % (0.2-2.0); Eosinophils Absolute Auto 0.1 10^3/uL (0.0-0.7); Eosinophils Percent Auto 1.6 % (0.9-7.0); Hematocrit 26.6 % (42.0-54.0); Hemoglobin 8.6 g/dL (14.0-18.0); Immature Granulocytes Abs Auto 0.04 10^3/uL (0.00-0.03); Immature Granulocytes Pct Auto 0.5 % (0.0-0.5); Lymphocytes Absolute Auto 1.5 10^3/uL (1.2-3.8); Lymphocytes Percent Auto 17.4 % (20.5-60.0); Mean Corpuscular HGB Conc 32.3 g/dL (29.9-35.2); Mean Corpuscular Hemoglobin 28.9 pg (25.9-34.0); Mean Corpuscular Volume 89.3 fL (80.0-94.0); Mean Platelet Volume 9.7 fL (9.5-13.5); Monocytes Absolute Auto 0.6 10^3/uL (0.3-0.8); Monocytes Percent Auto 6.7 % (1.7-12.0); Neutrophils Absolute Auto 6.5 10^3/uL (1.4-6.5); Neutrophils Percent Auto 73.3 % (43.0-75.0); Platelet Count 329 10^3/uL (150-450); Red Blood Count 2.98 10^6/uL (4.70-6.10); Red Cell Distribution Width 15.6 % (11.0-15.0); White Blood Count 8.9 10^3/uL (4.0-11.0)
[2024-12-27 15:28] LABS: INR 1.01; Prothrombin Time 10.7 sec (9.0-11.6)
--- NOTE | 2024-12-27 15:35 | CT_ITS ---
The [address] [address] Patient Name: DENIZ GÓMEZ MRN: [id number] date: 1945 Sex: M Assigned Patient Location: ER Current Patient Location: ER Accession/Order Number: [id number] Exam Date: 12/27/2024 16:42 Report Date: 12/27/2024 16:43 At the request of: ANDRES CARIAS Procedure: CT head/brain wo con CT head/brain wo con 12/27/2024 3:36 PM SIGNS AND SYMPTOMS: ^Seizure like activity TECHNIQUE:Multi-detector CT axial slices of the brain were obtained without IV contrast. CT was performed with one or more of the following dose reduction techniques: Automated exposure control, adjustment of the mA and/or kV according to patient size, or use of iterative reconstruction technique. COMPARISON: 11/17/2024 FINDINGS: There is no shift of the midline structures, acute intracranial bleeding, mass effects, or evidence of acute ischemia. There is age-related cortical atrophy. There is periventricular white matter hypoattenuation. Atherosclerotic changes are noted in the intracranial segments of the internal carotid arteries and V4 segments of the vertebral arteries. The ventricular system is normal in size. The brainstem and the cerebellum are unremarkable. The visualized intraorbital contents, the visualized paranasal sinuses, and the infratemporal soft tissues show no acute abnormality. The osseous structures in the skull base and the calvarium show no abnormality. CT/CT head/brain wo con IMPRESSION: No acute intracranial pathology. Chronic age-related neurodegenerative changes are redemonstrated as above. Impression dictated by: Berry Raza M.D.12/27/2024 4:43 PM Dictation Location: [place] [address] Electronically authenticated by: [id number] Y Date: 12/27/2024 16:43
--- NOTE | 2024-12-27 15:35 | XR_ITS ---
[address] [address] Patient Name: DENIZ GÓMEZ MRN: [id number] date: 1945 Sex: M Assigned Patient Location: ED.MAIN Current Patient Location: ED.MAIN Accession/Order Number: [id number] Exam Date: 12/27/2024 16:35 Report Date: 12/27/2024 16:40 At the request of: ANDRES CARIAS Procedure: XR chest 1V XR chest 1V 12/27/2024 3:36 PM SIGNS AND SYMPTOMS: ^Altered mental status PROTOCOL: Frontal radiographs of the chest COMPARISON: 11/17/2024 FINDINGS: The trachea is midline. The heart and mediastinal structures are within normal limits. The lung parenchyma is clear. The bony thorax is intact. XR/XR chest 1V IMPRESSION: No acute cardiopulmonary pathology. Impression dictated by: Berry Raza M.D.12/27/2024 4:40 PM Dictation Location: [place] [address] Electronically authenticated by: [id number] Y Date: 12/27/2024 16:40
[2024-12-27 15:36] LABS: Lactate/Lactic Acid 1.4 mmol/L (0.4-2.0)
[2024-12-27 15:38] LABS: Alanine Aminotransferase 29 U/L (16-63); Albumin Globulin Ratio 0.6; Albumin Level 2.8 g/dL (3.4-5.0); Alkaline Phosphatase 63 U/L (46-116); Anion Gap 13.6; Aspartate Amino Transferase 22 U/L (15-37); BUN Creatinine Ratio 13.2; Bilirubin Total 0.3 mg/dL (0.2-1.0); Calcium 8.8 mg/dL (8.5-10.1); Carbon Dioxide 26.8 mmol/L (21.0-32.0); Chloride 105 mmol/L (98-107); Estimated GFR (African America 25 (>=60 mL/min/1.73m^2); Estimated GFR (Non-African Ame 21 (>=60 mL/min/1.73m^2); Globulin 4.8 g/dL; Glucose 121 mg/dL (74-106); Magnesium 2.4 mg/dL (1.8-2.4); Potassium 3.4 mmol/L (3.5-5.1); Sodium 142 mmol/L (136-145); Thyroid Stimulating Hormone 2.103 uIU/mL (0.358-3.740); Total Protein 7.6 g/dL (6.4-8.2); Troponin I High Sensitivity 8.7 pg/mL (4.0-76.1)
[2024-12-27 16:22] LABS: Bilirubin Urine NEGATIVE (NEGATIVE); Blood Urine NEGATIVE (NEGATIVE); Clarity Urine CLEAR (CLEAR); Color Urine LT. YELLOW (YELLOW); Glucose Urine UA NEGATIVE (NEGATIVE); Ketones Urine NEGATIVE (NEGATIVE); Leukocyte Esterase Urine SMALL (NEGATIVE); Nitrite Urine NEGATIVE (NEGATIVE); Protein Urine >=300 mg/dL (NEG/TRACE); Urobilinogen Urine 0.2 EU/dL (0.2-1.0)
[2024-12-27 16:30] LABS: Bacteria Urine SMALL #/HPF (NONE SEEN); Cast Seen? NONE SEEN #/LPF (NONE SEEN); Crystals Seen? None Seen #/HPF (None Seen); Mucus Urine NONE SEEN (NONE SEEN); RBC Urine 0-2 #/HPF (0-2); Squamous Epithelial Cell Urine FEW #/LPF (NONE/RARE); Urine Culture Indicated YES-FRMC
[2024-12-27] MEDS: CEFTRIAXONE 1,000 MG in 0.9 % SODIUM CHLORIDE 50 ML 100 MG IV (17:24)
--- OUTSIDE RECORDS SUMMARY | 2024-12-27 18:27 | XMS_ITS | CCD ---
Author Organization [facility] Care Team Providers Care Spring Maker Name Role Phone Unavailable Primary Care Provider Unavailabl ROHITH Zamorano Attending Unavailable RUSTY SANDOVAL Admitting Unavailable SELF, REFERRED Referring Unavailable SELF, REFERRED Primary Care Unavailable [place] Procedure Practitioner Unavailab GHADA Zacarias Surgeon Unavailable ROHITH SALAS Surgeon Unavailable [place] Procedure Practitioner Unavailab le MARJORIE, JEFFRY S [...] Figueroa Unavailable DO Floyd Rubi Attending Provider [phone] NO FAMILY, PHYSICIAN Primary Care Provider Unava [...] Medication Allergies] Propensity to adverse reactions (disorder) [facility] Repository Medications Current Medications Medication Drug Class(es) [...] afterwards, # 2 tab(s), Refills(s) 0, Pharmacy: [facility] [id number], 177, cm, 12/03/23 15:04:00 EST, Height/Length [...] times daily for 0 *Pick strength-form from [employer] for eRX* 15 Nov, 2020 Not-Taking/PRN ferrous fumarate 325 mg oral tablet (2 sources) Start: 11-15-2020 take 1 tablet by mouth once daily ferrous fumarate 325 mg oral tablet 325 mg = 1 tab(s), Oral, Daily Start Date: 11/15/20 Status: Ordered tamsulosin hydrochloride 0.4 mg oral capsule (18 sources) alpha-Adrenerg ic Jasne Start: 12-03-2023 End: 11-27-2024 take 2 capsules by mouth once daily tamsulosin 0.4 mg Cap 0.8 mg = 2 cap(s), Oral, Daily, X 90 day(s), # 180 cap(s), Refills(s) 3, Pharmacy: [facility]/pharmacy #[id number], 177, cm, 12/03/23 15:04:00 EST, Height/Length [...] Oral daily for 30 *Pick strength-form from [employer] for eRX* Dec, Not-Taking/PRN Start: 12-29-2020 Ferrex 150 150 MG Ferrex 150 150MG, 1 (one) Capsule daily # 30, 12/29/2020, Ref. x2. Active Oral daily for 30 *Pick strength-form from [employer] for eRX* Dec, Not-Taking sodium bicarbonate 325 mg oral tablet (10 sources) Start: 12-04-2020 take 1 tablet by mouth twice daily as needed Sodium Bicarbonate 325MG Sodium Bicarbonate 325MG, 2 (two) Tablet two times daily # 120, 12/04/2020, Ref. x11. Active Oral two times daily for 30 *Pick strength-form from [employer] for eRX* Dec, Not-Taking/PRN Problems Active Problems [...] Other residential (current) drug therapy; Translations: [OTH [facility] CURRENT DRUG THERAPY] Onset: 10-09-2022 Episodic Other [...] Contact Information DARREL MENDEZ, AGNES Horton, URL [address] [facility] [place] [address] [phone] Additional Instructions: sched cysto/uros Patient Education Urodynamic [...] prostate ( (more content not included)... Normal [facility] Comment on above: Result Comment: Elec tronically Signed By: AGNES ROJO PA-C\.br\Date and Time Signed: 12/05/23 09:19 EST\.br\Electronically Co-Signed By: Brianne Nash\.br\Date and Time Co-Signed: 12/03/23 15:50 EST Physician Referralon 024 Physician Referral [id number] TIFF Normal [facility] Screenson 12-04-2023 Screens [id number] IFF Normal [facility] Ambulatory Visit Summaryon 0 12-03-2023 Ambulatory Visit [...] sched cysto/uros Where: [address] [place] [phone] Medications What How Much When Instructions Changed tamsulosin (tamsulosin 0.4 mg Cap) 2 Capsules By Mouth Every day Duration: 90 Days Pickup at [facility]/pharmacy #[id number] Unchanged amlodipine (amLODIPine 5 mg Tab) [...] physician if questions or concerns Pharmacy Information [facility]/pharmacy #[id number]: [address] [place], [place] [phone] Allergies No Known Medication Allergies Problems Ongoing [...] including vitamins, herbs, eye drops, creams, and bywv-jio-eyqxynk medicines. ? Whether you are or may [...] create (more content not included)... Normal [facility] Patient Educationon 12-03-19 Patient Education Urology Urodynamic [...] including vitamins, herbs, eye drops, creams, and tgqk-ens-pkzlmvi medicines. ? Whether you are or may [...] results be (more content not included)... Normal [facility] Comprehensive Metabolic Pane angeline 07-04-2023 Albumin [Mass/Vol] 3.408329 g/dL Normal 3.4-5.0 g/dL [facility] Other ALP [Catalytic activity/Vol] 59 U/L Normal 46-116 U/L [facility] Other ALT [Catalytic activity/Vol] 23 U/L Normal 16-63 U/L [facility] Other Anion gap [Moles/Vol] 11.3 mmol/L [facility] Other AST [Catalytic activity/Vol] 20 U/L Normal 15-37 U/L [facility] Other Bilirubin [Mass/Vol] 0.4685488 mg/dL Normal 0.2- 1.0 mg/dL [facility] Other Calcium [Mass/Vol] 9.2748404 mg/dL Normal 8.5-10 .1 mg/dL [facility] Other Chloride [Moles/Vol] 101 mmol/L Normal 98-107 mmol/L [facility] Other CO2 [Moles/Vol] 31.37195051 mmol/L Normal 21.0-3 2.0 mmol/L [facility] Other Creatinine [Mass/Vol] 2.00829397 mg/dL High 0. 70-1.30 mg/dL [facility] Other Glucose [Mass/Vol] 148 mg/dL High 74-106 mg/dL [facility] Other Potassium [Moles/Vol] 3.80888063 mmol/L Low 3 .5-5.1 mmol/L [facility] Other Protein [Mass/Vol] 8.542385 g/dL Normal 6.4-8.2 g/dL [facility] Other Sodium [Moles/Vol] 140 mmol/L Normal 136-145 mmol/L [facility] Other Urea nitrogen [Mass/Vol] 33.5312970 mg/dL High 7.0-18.0 mg/dL [facility] Other Urea nitrogen/Creatinine [Mass ratio] 14.5 mg/mg [facility] Other Comprehensive Metabolic Panel 4.5 g/dL [facility] Other Comprehensive Metabolic Panel 0.8 [facility] Other Comprehensive Metabolic Panel see note [facility] Other Comprehensive Metabolic Panel 28 Low >=60 [facility] Other Comprehensive Metabolic Panel 34 Low >=60 [facility] Other PSA SCREENINGon 07-04-2023 PSA SCREENING 3.74 ng/mL <=4.00 ng/mL [facility] Other UA RANDOM W/MICROSCOPICon Clarity (U) CLEAR CLEAR [facility] Other Color (U) LT. YELLOW YELLOW [facility] Other Ketones Ql (U) Negative NEGATIVE mg/dL [facility] Other Leukocyte esterase Test strip Ql (U) Negative NEGATIVE [facility] Other pH (U) 6.5 [pH] 5.0-9.0 [facility] Other UA RANDOM W/MICROSCOPIC 0-2 #/HPF Abnormal NONE SEEN #/HPF [facility] Other UA RANDOM W/MICROSCOPIC NONE SEEN #/HPF None Seen #/HPF [facility] Other UA RANDOM W/MICROSCOPIC 1.015 1.005-1.025 [facility] Other UA RANDOM W/MICROSCOPIC 30 mg/dL Abnormal NEG/TRACE mg/dL [facility] Other UA RANDOM W/MICROSCOPIC Negative NEGATIVE [facility] Other UA RANDOM W/MICROSCOPIC 0.2 EU/dL 0.2-1.0 EU/dL [facility] Other UA RANDOM W/MICROSCOPIC NONE SEEN NONE SEEN [facility] Other UA RANDOM W/MICROSCOPIC NONE SEEN #/LPF NONE SEEN #/LPF [facility] Other XR wrist RT 2Von 11-01-2022 XR wrist RT 2V [facility] Main [place] [address] [place] [address] XRay Report Signed Patient: Deniz Gomez MR#: [id number] : 1945 Acct:[id number] Age/Sex: 77 / M ADM Date: 11/01/22 Loc: [facility] Room: Type: [facility] Attending Dr: Floyd Rubi DO Copies [...] Waterman Jr., D.O.11/01/2022 1:36 PM Dictation Location: [place] [address] Transcribed By: [facility] 11/01/221335 Dictated By: Jeffry Waterman Jr, DO 11/01/22 1334 Signed By: 11/01/22 133 Normal [facility] XR WRIST RT MIN 3 Von [...] JANICE WOODS Date: 2022-10-06 22:44 Normal [facility] CBC AUTO DIFFon 10-06-2022 BASO # 0.0 103/ul Normal 0.0-0.1 [facility] Comment on above: Performed By: #### C BC #### [facility] [address] [address] [address] Goran Cortes Basophils/100 WBC (Bld) 0.2 % Normal 0.2-2.0 [facility] Comment on above: Performed By: #### C BC #### [facility] [address] [address] [address] Goran Cortes EO # 0.0 103/ul Normal 0.0-0.7 [facility] Comment on above: Performed By: #### C BC #### [facility] [address] [address] [address] Goran Cortes Eosinophils/100 WBC (Bld) 0.1 % Critically low 0.9-7.0 [facility] Comment on above: Performed By: #### C BC #### [facility] [address] [place] [address] Dr. Groan Cortes Erythrocyte distribution width (RBC) [Ratio] 13.8 % Normal 11.0-15.0 [facility] Comment on above: Performed By: #### C BC #### [facility] [address] [place] [address] Dr. Goran Cortes Hematocrit (Bld) [Volume fraction] 38.4 % Critically low 42.0-54.0 [facility] Comment on above: Performed By: #### C BC #### [facility] [address] [place] [address] Dr. Goran Cortes Hemoglobin (Bld) [Mass/Vol] 12.8 g/dL Critically low 14.0-18.0 [facility] Comment on above: Performed By: #### C BC #### [facility] [address] [place] [address] Dr. Goran Cortes IG # 0.06 10e3/ul Critically high 0.00-0.03 [facility] Comment on above: Performed By: #### C BC #### [facility] [address] [place] [address] Dr. Goran Cortes IG % 0.4 % Normal 0.0-0.5 [facility] Comment on above: Performed By: #### C BC #### [facility] [address] [place] [address] Dr. Goran Cortes LYMPH # 1.7 103/ul Normal 1.2-3.8 [facility] Comment on above: Performed By: #### C BC #### [facility] [address] [place] [address] Dr. Goran Cortes Lymphocytes/100 WBC (Bld) 11.6 % Critically low 20.5-60.0 [facility] Comment on above: Performed By: #### C BC #### [facility] [address] [place] [address] Dr. Goran Cortes MANUAL DIFF REQ NO Normal [facility] Comment on above: Performed By: #### C BC #### [facility] [address] [place] [address] Dr. Goran Cortes MCH (RBC) [Entitic mass] 31.2 pg Normal 25.9-34.0 [facility] Comment on above: Performed By: #### C BC #### [facility] [address] [address] [address] Goran Cortes MCHC (RBC) [Mass/Vol] 33.3 g/dL Normal 29.9-35.2 [facility] Comment on above: Performed By: #### C BC #### [facility] [address] [address] [address] Goran Cortes MCV (RBC) [Entitic vol] 93.7 fL Normal 80.0-94.0 [facility] Comment on above: Performed By: #### C BC #### [facility] [address] [address] [address] Goran Cortes MONO # 0.9 103/ul Critically high 0.3-0.8 [facility] Comment on above: Performed By: #### C BC #### [facility] [address] [address] [address] Goran Cortes Monocytes/100 WBC (Bld) 6.2 % Normal 1.7-12.0 [facility] Comment on above: Performed By: #### C BC #### [facility] [address] [address] [address] Goran Cortes NEUT # 11.9 103/ul Critically high 1.4-6.5 [facility] Comment on above: Performed By: #### C BC #### [facility] [address] [address] [address] Goran Cortes Neutrophils/100 WBC (Bld) 81.5 % Critically high 43.0-75.0 [facility] Comment on above: Performed By: #### C BC #### [facility] [address] [address] [address] Goran Cortes Platelet mean volume (Bld) [Entitic vol] 11.2 fL Normal 9.5-13.5 [facility] Comment on above: Performed By: #### C BC #### [facility] [address] [address] [address] Goran Cortes PLT 212 103/ul Normal 150-450 [facility] Comment on above: Performed By: #### C BC #### [facility] [address] [place], [place] [address] Dr. Goarn Cortes RBC 4.10 106/ul Critically low 4.70-6.10 [facility] Comment on above: Performed By: #### C BC #### [facility] [address] [place], [place] [address] Dr. Goran Cortes WBC 14.6 103/ul Critically high 4.0-11.0 [facility] Comment on above: Performed By: #### C BC #### [facility] [address] [place], [place] [address] CSPINE WO CONon [...] DIOR GANT Date: 2022-10-06 21:39 Normal [facility] CT FACIAL BONES WO CONon CT [...] DIOR GANT Date: 2022-10-06 21:32 Normal [facility] CT HEAD WO CONon 10-06-2022 CT [...] by: Earlene GARCÍA Date: 2022-10-06 21:31 Normal [facility] PROF CHEM 8 (BAS METB)on Anion gap [Moles/Vol] 15.7 mmol/L Normal [facility] Comment on above: Performed By: #### B MP #### [facility] [address] [address] [address] Goran Cortes Calcium [Mass/Vol] 9.5 mg/dL Normal 8.5-10.1 [facility] Comment on above: Performed By: #### B MP #### [facility] [address] [address] [address] Goran Cortes Chloride [Moles/Vol] 101 mmol/L Normal 98-107 [facility] Comment on above: Performed By: #### B MP #### [facility] [address] [address] [address] Goran Cortes CO2 [Moles/Vol] 25.6 mmol/L Normal 21.0-32.0 [facility] Comment on above: Performed By: #### B MP #### [facility] [address] [address] [address] Goran Cortes Creatinine [Mass/Vol] 2.64 mg/dL Critically high 0.70-1.30 [facility] Comment on above: Performed By: #### B MP #### [facility] [address] [address] [address] Goran Cortes EGFR-AF [place]OOK ISLANDER 29 mL/min/1.73m2 Critically low >=60 [facility] Comment on above: Performed By: #### B MP #### [facility] [address] [address] [address] Goran Cortes EGFR-NON AF [place]ER 24 mL/min/1.73m2 Critically low >=60 [facility] Comment on above: Performed By: #### B MP #### [facility] [address] [address] [address] Goran Cortes Glucose [Mass/Vol] 177 mg/dL Critically high 74-106 [facility] Comment on above: Performed By: #### B MP #### [facility] [address] [address] [address] Goran Cortes Potassium [Moles/Vol] 3.3 mmol/L Critically low 3.5-5.1 [facility] Comment on above: Performed By: #### B MP #### [facility] [address] [place], [place] [address] Dr. Goran Cortes Sodium [Moles/Vol] 139 mmol/L Normal 136-145 [facility] Comment on above: Performed By: #### B MP #### [facility] [address] [place], [place] [address] Dr. Goran Cortes Urea nitrogen [Mass/Vol] 34.0 mg/dL Critically high 7.0-18.0 [facility] Comment on above: Performed By: #### B MP #### [facility] [address] [place], [place] [address] Dr. Goran Cortes Urea nitrogen/Creatinine [Mass ratio] 12.9 mg/mg Normal [facility] Comment on above: Performed By: #### B MP #### [facility] [address] [place], [place] [address] Dr. Goran Cortes Hemoglobin and Hematocrit, B [facility] 10-19-2020 Hematocrit (Bld) [Volume fraction] 23.9 % Low 40.7 - 50.3 % [place], [place] Hemoglobin (Bld) [Mass/Vol] 7.5 g/dL Low 13 - 17 g/dL [place] Interpretation and review of laboratory results Abnormal [place] Hgb/Hcton 10-19-2020 Hematocrit (Bld) [Volume fraction] 23.9 % Low 40.7-50.3 [facility] Comment on above: Performed By: #### H H #### [facility] [address] [place], [place] [phone] Force Dispatcher: David Tate MD Hemoglobin (Bld) [Mass/Vol] 7.5 g/dL Low 13.0-17.0 [facility] Comment on above: Performed By: #### H H #### [facility] [address] [place], [place] [phone] Force Dispatcher: David Tate MD Hemoglobin and Hematocrit, B [facility] 10-16-2020 Hematocrit (Bld) [Volume fraction] 24.6 % Low 40.7 - 50.3 % [place] Hemoglobin (Bld) [Mass/Vol] 7.6 g/dL Low 13 - 17 g/dL [place] Interpretation and review of laboratory results Abnormal [place] Hgb/Hcton 10-16-2020 Hematocrit (Bld) [Volume fraction] 24.6 % Low 40.7-50.3 [facility] Comment on above: Performed By: #### H H #### [facility] [employer] [address] [place], [place] [phone] Force Dispatcher: David Tate MD Hemoglobin (Bld) [Mass/Vol] 7.6 g/dL Low 13.0-17.0 [facility] Comment on above: Performed By: #### H H #### [facility] [employer] [address] [place] [address] Force Dispatcher: David Tate MD Hemoglobin and Hematocrit, B loodon 10-13-2020 Hematocrit (Bld) [Volume fraction] 25.5 % Low 40.7 - 50.3 % [place] Hemoglobin (Bld) [Mass/Vol] 8.0 g/dL Low 13 - 17 g/dL [place] Interpretation and review of laboratory results Abnormal [place] Hgb/Hcton 10-13-2020 Hematocrit (Bld) [Volume fraction] 25.5 % Low 40.7-50.3 [facility] Comment on above: Performed By: #### H H #### [facility] [address] [place] [address] Force Dispatcher: Harinder Rosales MD Hemoglobin (Bld) [Mass/Vol] 8.0 g/dL Low 13.0-17.0 [facility] Comment on above: Performed By: #### H H #### [facility] [address] [place] [address] Force Dispatcher: Harinder Rosales MD Hemoglobin and Hematocrit, B loodon 10-12-2020 Hematocrit (Bld) [Volume fraction] 24.3 % Low 40.7 - 50.3 % [place] Hemoglobin (Bld) [Mass/Vol] 7.5 g/dL Low 13 - 17 g/dL [place] Interpretation and review of laboratory results Abnormal [place] Hgb/Hcton 10-12-2020 Hematocrit (Bld) [Volume fraction] 24.3 % Low 40.7-50.3 [facility] Comment on above: Performed By: #### H H #### [employer] [address] [place] [address] Force Dispatcher: David Tate MD Hemoglobin (Bld) [Mass/Vol] 7.5 g/dL Low 13.0-17.0 [facility] Comment on above: Performed By: #### H H #### [facility] [address] [place] [address] [phone] Force Dispatcher: David Tate MD Hemoglobin and Hematocrit, B loodon 10-11-2020 Hematocrit (Bld) [Volume fraction] 24.2 % Low 40.7 - 50.3 % [place] Hemoglobin (Bld) [Mass/Vol] 7.6 g/dL Low 13 - 17 g/dL [place] Interpretation and review of laboratory results Abnormal [place] Hgb/Hcton 10-11-2020 Hematocrit (Bld) [Volume fraction] 24.2 % Low 40.7-50.3 [facility] Comment on above: Performed By: #### H H #### [facility] [address] [place], [place] [phone] Force Dispatcher: David Tate MD Hemoglobin (Bld) [Mass/Vol] 7.6 g/dL Low 13.0-17.0 [facility] Comment on above: Performed By: #### H H #### [facility] [place] [address] Force Dispatcher: David Tate MD Hemoglobin and Hematocrit, B loodon 10-10-2020 Hematocrit (Bld) [Volume fraction] 24.0 % Low 40.7 - 50.3 % [place] Hemoglobin (Bld) [Mass/Vol] 7.4 g/dL Low 13 - 17 g/dL [place] Interpretation and review of laboratory results Abnormal [place] Hgb/Hcton 10-10-2020 Hematocrit (Bld) [Volume fraction] 24.0 % Low 40.7-50.3 [facility] Comment on above: Performed By: #### H H #### [facility] [employer] [address] [place], [place] [phone] Force Dispatcher: David Tate MD Hemoglobin (Bld) [Mass/Vol] 7.4 g/dL Low 13.0-17.0 [facility] Comment on above: Performed By: #### H H #### [facility] [employer] [address] [place], [place] [phone] Force Dispatcher: David Tate MD Basic Metabolic Panelon Anion gap [Moles/Vol] 10 mmol/L 9 - 17 mmol/L [place] Bun/Cre Ratio NOT REPORTED [place] Calcium [Mass/Vol] 7.9 mg/dL Low 8.6 - 10. 4 mg/dL [place] Chloride [Moles/Vol] 104 mmol/L 98 - 10 7 mmol/L [place] CO2 [Moles/Vol] 20 mmol/L 20 - 31 mmol/L [place] Creatinine [Mass/Vol] 2.83 mg/dL High 0.7 - 1.2 mg/dL [place] GFR 27 mL/min Low >[address], [place] GFR Non- 22 mL/min Low >60 [place] GFR/1.73 sq M predicted among non-blacks MDRD (S/P/Bld) [Vol rate/Area] NOT REPORTED [place] GFR/1.73 sq M predicted among non-blacks MDRD (S/P/Bld) [Vol rate/Area] [place] Comment on above: Average GFR for 70 o r more years old: 75 mL/min/1.73sq m Chronic Kidney Disease: <60 mL/min/1.73sq m Kidney failure: <15 mL/min/1.73sq m eGFR calculated using average adult body mass. Additional eGFR calculator available at: http://www.[employer]/multiple_crcl_2012.htm Glucose [Mass/Vol] 90 mg/dL 70 - 99 mg/dL [place] Interpretation and review of laboratory results Abnormal [place] Potassium [Moles/Vol] 4.1 mmol/L 3.7 - 5.3 mmol/L [place] Sodium [Moles/Vol] 134 mmol/L Low 135 - 144 mmol/L [place] Urea nitrogen [Mass/Vol] 36 mg/dL High 8 - 23 mg/dL [place] Basic Metabolic Profon 10-09 (cont.) Normal [facility] Comment on above: Result Comment: Aver age GFR for 70 or more years old: 75 mL/min/1.73sq m Chronic Kidney Disease: <60 mL/min/1.73sq m Kidney failure: <15 mL/min/1.73sq m eGFR calculated using average adult body mass. Additional eGFR calculator available at: http://www.[employer]/multiple_crcl_2012.htm Performed By: ###Roldan KWON, BMP #### [facility] [address] [place] [id number] Force Dispatcher: David Tate MD Anion gap [Moles/Vol] 10 mmol/L Normal 9-17 [facility] Comment on above: Performed By: ###Roldan KWON, BMP #### [facility] [address] [place] [address] Force Dispatcher: David Tate MD Calcium [Mass/Vol] 7.9 mg/dL Low 8.6-10.4 [facility] Comment on above: Performed By: #### C BC, BMP #### [facility] [place] [address] Force Dispatcher: David Tate MD Chloride [Moles/Vol] 104 mmol/L Normal 98-107 [facility] Comment on above: Performed By: #### C BC, BMP #### [facility] [address] [place] [address] Force Dispatcher: David Tate MD CO2 [Moles/Vol] 20 mmol/L Normal 20-31 [facility] Comment on above: Performed By: #### C BC, BMP #### [facility] [address] [place] [address] Force Dispatcher: David Tate MD Creatinine [Mass/Vol] 2.83 mg/dL High 0.70-1.20 [facility] Comment on above: Performed By: #### C BC, BMP #### [facility] [address] [place] [address] Force Dispatcher: David Tate MD GFR, Amer 27 mL/min Low >60 [facility] Comment on above: Performed By: #### C BC, BMP #### [facility] [address] [place] [phone] Force Dispatcher: David Tate MD GFR,non Amer 22 mL/min Low >60 [facility] Comment on above: Performed By: #### C BC, BMP #### [facility] [address] [place] [address] Force Dispatcher: David Tate MD Glucose [Mass/Vol] 90 mg/dL Normal 70-99 [facility] Comment on above: Performed By: #### C BC, BMP #### [facility] [address] [place] [address] Force Dispatcher: David Tate MD Potassium [Moles/Vol] 4.1 mmol/L Normal 3.7-5.3 [facility] Comment on above: Performed By: #### C BC, BMP #### [facility] [address] [place] [address] Force Dispatcher: David Tate MD Sodium [Moles/Vol] 134 mmol/L Low 135-144 [facility] Comment on above: Performed By: #### C BC, BMP #### [facility] [address] [place] [address] Force Dispatcher: David Tate MD Urea nitrogen [Mass/Vol] 36 mg/dL High 8-23 [facility] Comment on above: Performed By: #### C BC, BMP #### [facility] [employer] [address] [place] [address] Force Dispatcher: David Tate MD BUN/CRE Ratio NOT REPORTED Normal - [facility] Comment on above: Performed By: #### C BC, BMP #### [facility] [employer] [address] [place] [phone] Force Dispatcher: David Tate MD Staging: NOT REPORTED Normal [facility] Comment on above: Performed By: #### C BC, BMP #### [facility] [facility] [employer] [address] [place] [id number] Force Dispatcher: David Tate MD CBCon 10-09-2020 Erythrocyte distribution width (RBC) [Ratio] 14.6 % High 11.8-14.4 [facility] Comment on above: Performed By: #### C BC, BMP #### [facility] [employer] [address] [place] [address] Force Dispatcher: David Tate MD Hematocrit (Bld) [Volume fraction] 24.8 % Low 40.7-50.3 [facility] Comment on above: Performed By: #### C BC, BMP #### [facility] [employer] [address] [place] [address] Force Dispatcher: David Tate MD Hemoglobin (Bld) [Mass/Vol] 7.8 g/dL Low 13.0-17.0 [facility] Comment on above: Performed By: #### C CHER, BMP #### [address] [address] Force Dispatcher: David Tate MD MCH (RBC) [Entitic mass] 30.5 pg Normal 25.2-33.5 [facility] Comment on above: Performed By: #### C BC, BMP #### [address] [address] Force Dispatcher: David Tate MD MCHC (RBC) [Mass/Vol] 31.5 g/dL Normal 28.4-34.8 [facility] Comment on above: Performed By: #### C CHER, BMP #### [address] [address] Force Dispatcher: David Tate MD MCV (RBC) [Entitic vol] 96.9 fL Normal 82.6-102.9 [facility] Comment on above: Performed By: #### C CHER, BMP #### [address] [address] Force Dispatcher: David Tate MD NRBC Automated 0.0 per 100 WBC Normal 0.0 [facility] Comment on above: Performed By: #### C CHER, BMP #### [address] [address] Force Dispatcher: David Tate MD Platelet mean volume (Bld) [Entitic vol] 11.1 fL Normal 8.1-13.5 [facility] Comment on above: Performed By: #### C CHER, BMP #### [address] [address] Force Dispatcher: David Tate MD Platelets (Bld) [#/Vol] 348 10*3/uL Normal 138-453 [facility] Comment on above: Performed By: #### C BC, BMP #### [facility] [address] [place], [place] [id number] Force Dispatcher: David Tate MD RBC (Bld) [#/Vol] 2.56 10*6/uL Low 4.21-5.77 [facility] Comment on above: Performed By: #### C BC, BMP #### [facility] [address] [place], [place] [id number] Force Dispatcher: David Tate MD WBC (Bld) [#/Vol] 6.6 10*3/uL Normal 3.5-11.3 [facility] Comment on above: Performed By: #### C BC, BMP #### [facility] [employer] [address] [place], [place] [phone] Force Dispatcher: David Tate MD Erythrocyte distribution width (RBC) [Ratio] 14.6 % High 11.8 - 14.4 % [place], [place] Hematocrit (Bld) [Volume fraction] 24.8 % Low 40.7 - 50.3 % [place] Hemoglobin (Bld) [Mass/Vol] 7.8 g/dL Low 13 - 17 g/dL [place] Interpretation and review of laboratory results Abnormal [place] MCH (RBC) [Entitic mass] 30.5 pg 25.2 - 33.5 pg [place] MCHC (RBC) [Mass/Vol] 31.5 g/dL 28.4 - 34.8 g/dL [place] MCV (RBC) [Entitic vol] 96.9 fL 82.6 - 102.9 fL [place] Platelet mean volume (Bld) [Entitic vol] 11.1 fL 8.1 - 13.5 fL [place] Platelets (Bld) [#/Vol] 348 10*3/uL [place] RBC (Bld) [#/Vol] 2.56 10*6/uL Low 4.21 - 5.7 7 m/uL [place] WBC (Bld) [#/Vol] 0.0 10*3/uL 0.0 per 10 0 WBC [place] WBC (Bld) [#/Vol] 6.6 10*3/uL [place] BASIC METABOLIC PANELon 11-2 Calcium [Mass/Vol] 7.4 mg/dL Low 8.6-10.3 [facility] Comment on above: Order Comment: No: D o not add to previous draw Performed By: #### 5 [id number] #### [facility] [address] [place] [address], [facility] Chloride [Moles/Vol] 106 mmol/L Normal 98-107 [facility] Comment on above: Order Comment: No: D o not add to previous draw Performed By: #### 5 0608 #### [facility] [address] [place] [address], [place] CO2 [Moles/Vol] 22 mmol/L Normal 21-31 [facility] Comment on above: Order Comment: No: D o not add to previous draw Performed By: #### 5 0608 #### [facility] [address] [place] [address], [place] Creatinine [Mass/Vol] 3.64 mg/dL High 0.70-1.30 [facility] Comment on above: Order Comment: No: D o not add to previous draw Performed By: #### 5 0608 #### [facility] [address] [place] [address], [place] GFR/1.73 sq M predicted among blacks MDRD (S/P/Bld) [Vol rate/Area] 20 ml/min/1.73sq m Abnormal >60 [facility] Comment on above: Order Comment: No: D o not add to previous draw Result Comment: Calc ulation may not be valid for patients over 70 years Performed By: #### 5 [id number] #### [facility] [address] [place] [address], [place] GFR/1.73 sq M predicted among non-blacks MDRD (S/P/Bld) [Vol rate/Area] 16 ml/min/1.73sq m Abnormal >60 [facility] Comment on above: Order Comment: No: D o not add to previous draw Result Comment: Calc ulation may not be valid for patients over 70 years Performed By: #### 5 [id number] #### [facility] [address] [place] [address], [place] Glucose [Mass/Vol] 87 mg/dL Normal 70-100 [facility] Comment on above: Order Comment: No: D o not add to previous draw Performed By: #### 5 0608 #### [facility] [address] [place] [address], [place] Potassium [Moles/Vol] 4.4 mmol/L Normal 3.5-5.1 [facility] Comment on above: Order Comment: No: D o not add to previous draw Performed By: #### 5 0608 #### [facility] [address] [place] [address], [place] Sodium [Moles/Vol] 134 mmol/L Low 136-145 [facility] Comment on above: Order Comment: No: D o not add to previous draw Performed By: #### 5 0608 #### [facility] [address] [place] [address], [place] Urea nitrogen [Mass/Vol] 32 mg/dL High 7-25 [facility] Comment on above: Order Comment: No: D o not add to previous draw Performed By: #### 5 0608 #### [facility] [address] [place] [address], [place] CBC COMPLETE BLOOD COUNTon 11-26-2019 Erythrocyte distribution width (RBC) [Ratio] 15.3 % High 11.5-15.0 [facility] Comment on above: Order Comment: No: D o not add to previous draw Performed By: #### 1 0008 #### [facility] [address] [place] [address], [place] Hematocrit (Bld) [Volume fraction] 21.9 % Low 39.0-50.0 [facility] Comment on above: Order Comment: No: D o not add to previous draw Performed By: #### 1 0008 #### [facility] [address] [place] [id number], [facility] Hemoglobin (Bld) [Mass/Vol] 7.4 g/dL Low 13.0-17.0 [facility] Comment on above: Order Comment: No: D o not add to previous draw Performed By: #### 1 0008 #### [facility] [address] [place] [address], [facility] MCH (RBC) [Entitic mass] 31.6 pg Normal 27.0-33.0 [facility] Comment on above: Order Comment: No: D o not add to previous draw Performed By: #### 1 0008 #### [facility] [address] [facility] [place] [address], [facility] MCHC (RBC) [Mass/Vol] 33.8 g/dL Normal 32.0-35.0 [facility] Comment on above: Order Comment: No: D o not add to previous draw Performed By: #### 1 0008 #### [facility] [address] [place] [address], [facility] MCV (RBC) [Entitic vol] 93.6 fL Normal 82.0-98.0 [facility] Comment on above: Order Comment: No: D o not add to previous draw Performed By: #### 1 0008 #### [facility] [address] [place] [address], [facility] Nucleated RBC/100 WBC (Bld) [Ratio] 0 % Normal 0-0 [facility] Comment on above: Order Comment: No: D o not add to previous draw Performed By: #### 1 0008 #### [facility] [address] [facility] [place] [address], [facility] PLAT CNT 164 10*3/uL Normal 150-400 [facility] Comment on above: Order Comment: No: D o not add to previous draw Performed By: #### 1 0008 #### [facility] [address] [place] [address], [facility] RBC (Bld) [#/Vol] 2.34 10*6/uL Low 4.20-5.70 [facility] Comment on above: Order Comment: No: D o not add to previous draw Performed By: #### 1 0008 #### [facility] [address] [place] [address], [facility] WBC (Bld) [#/Vol] 3.48 10*3/uL Low 4.00-10.60 [facility] Comment on above: Order Comment: No: D o not add to previous draw Performed By: #### 1 0008 #### [facility] [address] MAGNESIUM BLOODon 09-26-2020 Magnesium [Mass/Vol] 1.6 mg/dL Low 1.9-2.7 [facility] Comment on above: Order Comment: No: D o not add to previous draw Performed By: #### 5 [id number] #### [facility] [address] [facility]. [address] BASIC METABOLIC PANELon 09-04 Calcium [Mass/Vol] 8.0 mg/dL Low 8.6-10.3 [facility] Comment on above: Order Comment: No: D o not add to previous draw Performed By: #### 0 0071 ####[facility] [place] [address], [facility] Chloride [Moles/Vol] 108 mmol/L High 98-107 [facility] Comment on above: Order Comment: No: D o not add to previous draw Performed By: #### 0 0071 ####[facility] [place] [address], [place] CO2 [Moles/Vol] 20 mmol/L Low 21-31 [facility] Comment on above: Order Comment: No: D o not add to previous draw Performed By: #### 0 0071 ####[facility] [place] [address], [place] Creatinine [Mass/Vol] 3.44 mg/dL High 0.70-1.30 [facility] Comment on above: Order Comment: No: D o not add to previous draw Performed By: #### 0 0071 ####[facility] [place] [address], [place] GFR/1.73 sq M predicted among blacks MDRD (S/P/Bld) [Vol rate/Area] 21 ml/min/1.73sq m Abnormal >60 [facility] Comment on above: Order Comment: No: D o not add to previous draw Result Comment: Calc ulation may not be valid for patients over 70 years Performed By: #### 0 0071 ####[facility] [facility] [place] [address], [place] GFR/1.73 sq M predicted among non-blacks MDRD (S/P/Bld) [Vol rate/Area] 18 ml/min/1.73sq m Abnormal >60 [facility] Comment on above: Order Comment: No: D o not add to previous draw Result Comment: Calc ulation may not be valid for patients over 70 years Performed By: #### 0 0071 ####[facility] [place] [address], [place] Glucose [Mass/Vol] 88 mg/dL Normal 70-100 The [facility] Comment on above: Order Comment: No: D o not add to previous draw Performed By: #### 0 0071 ####[facility] [place] [address], [place] Potassium [Moles/Vol] 4.1 mmol/L Normal 3.5-5.1 [facility] Comment on above: Order Comment: No: D o not add to previous draw Performed By: #### 0 0071 ####[facility] Sodium [Moles/Vol] 134 mmol/L Low 136-145 [facility] Comment on above: Order Comment: No: D o not add to previous draw Performed By: #### 0 0071 ####[facility] Urea nitrogen [Mass/Vol] 27 mg/dL High 7-25 [facility] Comment on above: Order Comment: No: D o not add to previous draw Performed By: #### 0 0071 ####[facility] CBC COMPLETE BLOOD COUNTon 11-25-2019 Erythrocyte distribution width (RBC) [Ratio] 15.4 % High 11.5-15.0 [facility] Comment on above: Order Comment: The A ptima SARS-CoV-2 assay is a nucleic acid amplification test intended for the qualitative detection of RNA from SARS-CoV-2 isolated and purified from nasopharyngeal (FILM SOUND ENGINEER),oropharyngeal (OP), nasal swab, sputum, and bronchoalveolar lavage (BAL) specimens from patients with signs and symptoms of infection who are suspected of COVID-19. Results are for the identification of SARS-CoV-2 RNA. The SARS-CoV-2 RNA is generally detectable during the acute phase of infection. The Aptima SARS-CoV-2 Assay on the [employer] system is intended for use by laboratory personnel specifically instructed and trained in the operation of the [employer] system. The Aptima SARS-CoV-2 assay is [...] information. Performed By: #### 3 [id number] #### [facility] [address] [place] [address], [facility] Hematocrit (Bld) [Volume fraction] 22.6 % Low 39.0-50.0 [facility] Comment on above: Order Comment: The A ptima SARS-CoV-2 assay is a nucleic acid amplification test intended for the qualitative detection of RNA from SARS-CoV-2 isolated and purified from nasopharyngeal (FILM SOUND ENGINEER),oropharyngeal (OP), nasal swab, sputum, and bronchoalveolar lavage (BAL) specimens from patients with signs and symptoms of infection who are suspected of COVID-19. Results are for the identification of SARS-CoV-2 RNA. The SARS-CoV-2 RNA is generally detectable during the acute phase of infection. The Aptima SARS-CoV-2 Assay on the [employer] Fusion system is intended for use by laboratory personnel specifically instructed and trained in the operation of the Ep[employer] and [employer] Fusion system. The Aptima SARS-CoV-2 assay is [...] information. Performed By: #### 3 1792 #### [facility] [address] [place] [address], [facility] Hemoglobin (Bld) [Mass/Vol] 7.5 g/dL Low 13.0-17.0 [facility] Comment on above: Order Comment: The A ptima SARS-CoV-2 assay is a nucleic acid amplification test intended for the qualitative detection of RNA from SARS-CoV-2 isolated and purified from nasopharyngeal (FILM SOUND ENGINEER),oropharyngeal (OP), nasal swab, sputum, and bronchoalveolar lavage (BAL) specimens from patients with signs and symptoms of infection who are suspected of COVID-19. Results are for the identification of SARS-CoV-2 RNA. The SARS-CoV-2 RNA is generally detectable during the acute phase of infection. The Aptima SARS-CoV-2 Assay on the [employer] Fusion system is intended for use by laboratory personnel specifically instructed and trained in the operation of the [employer] Fusion system. The Aptima SARS-CoV-2 assay is [...] information. Performed By: #### 3 1792 #### [facility] [address] [facility]. [address] MCH (RBC) [Entitic mass] 30.9 pg Normal 27.0-33.0 [facility] Comment on above: Order Comment: The A ptima SARS-CoV-2 assay is a nucleic acid amplification test intended for the qualitative detection of RNA from SARS-CoV-2 isolated and purified from nasopharyngeal (FILM SOUND ENGINEER),oropharyngeal (OP), nasal swab, sputum, and bronchoalveolar lavage (BAL) specimens from patients with signs and symptoms of infection who are suspected of COVID-19. Results are for the identification of SARS-CoV-2 RNA. The SARS-CoV-2 RNA is generally detectable during the acute phase of infection. The Aptima SARS-CoV-2 Assay on the [employer] Fusion system is intended for use by laboratory personnel specifically instructed and trained in the operation of the [employer] Fusion system. The Aptima SARS-CoV-2 assay is [...] information. Performed By: #### 3 1792 #### [facility] [address] [place] [address], [facility] MCHC (RBC) [Mass/Vol] 33.2 g/dL Normal 32.0-35.0 [facility] Comment on above: Order Comment: The A ptima SARS-CoV-2 assay is a nucleic acid amplification test intended for the qualitative detection of RNA from SARS-CoV-2 isolated and purified from nasopharyngeal (FILM SOUND ENGINEER),oropharyngeal (OP), nasal swab, sputum, and bronchoalveolar lavage (BAL) specimens from patients with signs and symptoms of infection who are suspected of COVID-19. Results are for the identification of SARS-CoV-2 RNA. The SARS-CoV-2 RNA is generally detectable during the acute phase of infection. The Aptima SARS-CoV-2 Assay on the The [employer] system is intended for use by laboratory personnel specifically instructed and trained in the operation of the Epes and [employer] Fusion system. The Aptima SARS-CoV-2 assay is [...] information. Performed By: #### 3 1792 #### [facility] [address] [place] [address], [facility] MCV (RBC) [Entitic vol] 93.0 fL Normal 82.0-98.0 The [facility] Comment on above: Order Comment: The A ptima SARS-CoV-2 assay is a nucleic acid amplification test intended for the qualitative detection of RNA from SARS-CoV-2 isolated and purified from nasopharyngeal (FILM SOUND ENGINEER),oropharyngeal (OP), nasal swab, sputum, and bronchoalveolar lavage (BAL) specimens from patients with signs and symptoms of infection who are suspected of COVID-19. Results are for the identification of SARS-CoV-2 RNA. The SARS-CoV-2 RNA is generally detectable during the acute phase of infection. The Aptima SARS-CoV-2 Assay on the [employer] system is intended for use by laboratory personnel specifically instructed and trained in the operation of the [employer] Fusion system. The Aptima SARS-CoV-2 assay is [...] information. Performed By: #### 3 1792 #### [facility] [address] [facility]. [address] Nucleated RBC/100 WBC (Bld) [Ratio] 0 % Normal 0-0 [facility] Comment on above: Order Comment: The A ptima SARS-CoV-2 assay is a nucleic acid amplification test intended for the qualitative detection of RNA from SARS-CoV-2 isolated and purified from nasopharyngeal (FILM SOUND ENGINEER),oropharyngeal (OP), nasal swab, sputum, and bronchoalveolar lavage (BAL) specimens from patients with signs and symptoms of infection who are suspected of COVID-19. Results are for the identification of SARS-CoV-2 RNA. The SARS-CoV-2 RNA is generally detectable during the acute phase of infection. The Aptima SARS-CoV-2 Assay on the [employer] Fusion system is intended for use by laboratory personnel specifically instructed and trained in the operation of the Epes and [employer] Fusion system. The Aptima SARS-CoV-2 assay is [...] information. Performed By: #### 3 1792 #### [facility] [address] [facility]. [address] PLAT CNT 169 10*3/uL Normal 150-400 The [facility] Comment on above: Order Comment: The A ptima SARS-CoV-2 assay is a nucleic acid amplification test intended for the qualitative detection of RNA from SARS-CoV-2 isolated and purified from nasopharyngeal (FILM SOUND ENGINEER),oropharyngeal (OP), nasal swab, sputum, and bronchoalveolar lavage (BAL) specimens from patients with signs and symptoms of infection who are suspected of COVID-19. Results are for the identification of SARS-CoV-2 RNA. The SARS-CoV-2 RNA is generally detectable during the acute phase of infection. The Aptima SARS-CoV-2 Assay on the The [employer] system is intended for use by laboratory personnel specifically instructed and trained in the operation of the [employer] and [employer] Fusion system. The Aptima SARS-CoV-2 assay is [...] information. Performed By: #### 3 1792 #### [facility] [address] RBC (Bld) [#/Vol] 2.43 10*6/uL Low 4.20-5.70 [facility] Comment on above: Order Comment: The A ptima SARS-CoV-2 assay is a nucleic acid amplification test intended for the qualitative detection of RNA from SARS-CoV-2 isolated and purified from nasopharyngeal (FILM SOUND ENGINEER),oropharyngeal (OP), nasal swab, sputum, and bronchoalveolar lavage (BAL) specimens from patients with signs and symptoms of infection who are suspected of COVID-19. Results are for the identification of SARS-CoV-2 RNA. The SARS-CoV-2 RNA is generally detectable during the acute phase of infection. The Aptima SARS-CoV-2 Assay on the [employer] and [employer] Fusion system is intended for use by laboratory personnel specifically instructed and trained in the operation of the Ep[employer] Ep[employer] Fusion system. The Aptima SARS-CoV-2 assay is [...] information. Performed By: #### 3 1792 #### [facility] [address] [place] [address], [facility] WBC (Bld) [#/Vol] 3.03 10*3/uL Low 4.00-10.60 [facility] Comment on above: Order Comment: The A ptima SARS-CoV-2 assay is a nucleic acid amplification test intended for the qualitative detection of RNA from SARS-CoV-2 isolated and purified from nasopharyngeal (FILM SOUND ENGINEER),oropharyngeal (OP), nasal swab, sputum, and bronchoalveolar lavage (BAL) specimens from patients with signs and symptoms of infection who are suspected of COVID-19. Results are for the identification of SARS-CoV-2 RNA. The SARS-CoV-2 RNA is generally detectable during the acute phase of infection. The Aptima SARS-CoV-2 Assay on the [employer] Fusion system is intended for use by laboratory personnel specifically instructed and trained in the operation of the Epes and Ep[employer] Fusion system. The Aptima SARS-CoV-2 assay is [...] information. Performed By: #### 3 1792 #### [facility] [address] [place] [address], [facility] PROTHROMBIN TIMEon 0 INR Coag (PPP) [Relative time] 1.06 {INR} Normal 0.91-1.16 [facility] Comment on above: Order Comment: No: D [...] 1995;[id number]. Performed By: #### 5 [id number] #### [facility] [address] PT Coag (PPP) [Time] 13.8 s Normal 12.3-14.8 [facility] Comment on above: Order Comment: No: D o not add to previous draw Result Comment: ALL RESULTS MUST BE INTERPRETED WITH RESPECT TO BLOOD DRAWING ARTIFACT OR DILUTION ERROR OF ANTICOAGULANT AT THE TIME OF SAMPLING. Performed By: #### 5 [id number] #### [facility] [address] BASIC METABOLIC PANELon 11-2 Calcium [Mass/Vol] 7.9 mg/dL Low 8.6-10.3 [facility] Comment on above: Order Comment: No: D o not add to previous draw Performed By: #### 5 [id number] #### [facility] [address] [place] [address], [place] Chloride [Moles/Vol] 109 mmol/L High 98-107 [facility] Comment on above: Order Comment: No: D o not add to previous draw Performed By: #### 5 0608 #### [facility] [address] [place] [address], [place] CO2 [Moles/Vol] 21 mmol/L Normal 21-31 The [facility] Comment on above: Order Comment: No: D o not add to previous draw Performed By: #### 5 0608 #### [facility] [address] [place] [address], [place] Creatinine [Mass/Vol] 3.69 mg/dL High 0.70-1.30 [facility] Comment on above: Order Comment: No: D o not add to previous draw Performed By: #### 5 0608 #### [facility] [address] [place] [address], [place] GFR/1.73 sq M predicted among blacks MDRD (S/P/Bld) [Vol rate/Area] 20 ml/min/1.73sq m Abnormal >60 The [facility] Comment on above: Order Comment: No: D o not add to previous draw Result Comment: Calc ulation may not be valid for patients over 70 years Performed By: #### 5 [id number] #### [facility] [address] [place] [address], [place] GFR/1.73 sq M predicted among non-blacks MDRD (S/P/Bld) [Vol rate/Area] 16 ml/min/1.73sq m Abnormal >60 The [facility] Comment on above: Order Comment: No: D o not add to previous draw Result Comment: Calc ulation may not be valid for patients over 70 years Performed By: #### 5 [id number] #### [facility] [address] [place] [address], [place] Glucose [Mass/Vol] 82 mg/dL Normal 70-100 The [facility] Comment on above: Order Comment: No: D o not add to previous draw Performed By: #### 5 0608 #### [facility] [address] [place] [address], [facility] Potassium [Moles/Vol] 4.1 mmol/L Normal 3.5-5.1 The [facility] Comment on above: Order Comment: No: D o not add to previous draw Performed By: #### 5 0608 #### [facility] [address] [place] [address], [facility] Sodium [Moles/Vol] 136 mmol/L Normal 136-145 The [facility] Comment on above: Order Comment: No: D o not add to previous draw Performed By: #### 5 0608 #### [facility] [address] [place] [address], [facility] Urea nitrogen [Mass/Vol] 32 mg/dL High 7-25 The [facility] Comment on above: Order Comment: No: D o not add to previous draw Performed By: #### 5 [id number] #### [facility] [address] [facility] [address] CBC COMPLETE BLOOD COUNTon 11-24-2019 Erythrocyte distribution width (RBC) [Ratio] 15.9 % High 11.5-15.0 The [facility] Comment on above: Order Comment: The A ptima SARS-CoV-2 assay is a nucleic acid amplification test intended for the qualitative detection of RNA from SARS-CoV-2 isolated and purified from nasopharyngeal (FILM SOUND ENGINEER),oropharyngeal (OP), nasal swab, sputum, and bronchoalveolar lavage (BAL) specimens from patients with signs and symptoms of infection who are suspected of COVID-19. Results are for the identification of SARS-CoV-2 RNA. The SARS-CoV-2 RNA is generally detectable during the acute phase of infection. The Aptima SARS-CoV-2 Assay on the Epes and Epes Fusion system is intended for use by laboratory personnel specifically instructed and trained in the operation of the Epes and Epes Fusion system. The Aptima SARS-CoV-2 assay is [...] information. Performed By: #### 3 1792 #### [facility] [address] [place] [address], [facility] Hematocrit (Bld) [Volume fraction] 24.7 % Low 39.0-50.0 The [facility] Comment on above: Order Comment: The A ptima SARS-CoV-2 assay is a nucleic acid amplification test intended for the qualitative detection of RNA from SARS-CoV-2 isolated and purified from nasopharyngeal (FILM SOUND ENGINEER),oropharyngeal (OP), nasal swab, sputum, and bronchoalveolar lavage (BAL) specimens from patients with signs and symptoms of infection who are suspected of COVID-19. Results are for the identification of SARS-CoV-2 RNA. The SARS-CoV-2 RNA is generally detectable during the acute phase of infection. The Aptima SARS-CoV-2 Assay on the Tap2print and Epes Fusion system is intended for use by laboratory personnel specifically instructed and trained in the operation of the Epes and Epes Fusion system. The Aptima SARS-CoV-2 assay is [...] information. Performed By: #### 3 1792 #### [facility] [address] [place] [address], [facility] Hemoglobin (Bld) [Mass/Vol] 8.2 g/dL Low 13.0-17.0 The [facility] Comment on above: Order Comment: The A ptima SARS-CoV-2 assay is a nucleic acid amplification test intended for the qualitative detection of RNA from SARS-CoV-2 isolated and purified from nasopharyngeal (FILM SOUND ENGINEER),oropharyngeal (OP), nasal swab, sputum, and bronchoalveolar lavage (BAL) specimens from patients with signs and symptoms of infection who are suspected of COVID-19. Results are for the identification of SARS-CoV-2 RNA. The SARS-CoV-2 RNA is generally detectable during the acute phase of infection. The Aptima SARS-CoV-2 Assay on the Epes and Epes Fusion system is intended for use by laboratory personnel specifically instructed and trained in the operation of the Epes and Epes Fusion system. The Aptima SARS-CoV-2 assay is [...] information. Performed By: #### 3 1792 #### [facility] [address] MCH (RBC) [Entitic mass] 31.2 pg Normal 27.0-33.0 The [facility] Comment on above: Order Comment: The A ptima SARS-CoV-2 assay is a nucleic acid amplification test intended for the qualitative detection of RNA from SARS-CoV-2 isolated and purified from nasopharyngeal (FILM SOUND ENGINEER),oropharyngeal (OP), nasal swab, sputum, and bronchoalveolar lavage (BAL) specimens from patients with signs and symptoms of infection who are suspected of COVID-19. Results are for the identification of SARS-CoV-2 RNA. The SARS-CoV-2 RNA is generally detectable during the acute phase of infection. The Aptima SARS-CoV-2 Assay on the Epes and Epes Fusion system is intended for use by laboratory personnel specifically instructed and trained in the operation of the Epes and Epes Fusion system. The Aptima SARS-CoV-2 assay is [...] information. Performed By: #### 3 1792 #### [facility] [address] [place] [address], [facility] MCHC (RBC) [Mass/Vol] 33.2 g/dL Normal 32.0-35.0 The [facility] Comment on above: Order Comment: The A ptima SARS-CoV-2 assay is a nucleic acid amplification test intended for the qualitative detection of RNA from SARS-CoV-2 isolated and purified from nasopharyngeal (FILM SOUND ENGINEER),oropharyngeal (OP), nasal swab, sputum, and bronchoalveolar lavage (BAL) specimens from patients with signs and symptoms of infection who are suspected of COVID-19. Results are for the identification of SARS-CoV-2 RNA. The SARS-CoV-2 RNA is generally detectable during the acute phase of infection. The Aptima SARS-CoV-2 Assay on the Epes and Epes Fusion system is intended for use by laboratory personnel specifically instructed and trained in the operation of the Epes and Epes Fusion system. The Aptima SARS-CoV-2 assay is [...] information. Performed By: #### 3 1792 #### [facility] [address] [place] [address], [facility] MCV (RBC) [Entitic vol] 93.9 fL Normal 82.0-98.0 The [facility] Comment on above: Order Comment: The A ptima SARS-CoV-2 assay is a nucleic acid amplification test intended for the qualitative detection of RNA from SARS-CoV-2 isolated and purified from nasopharyngeal (FILM SOUND ENGINEER),oropharyngeal (OP), nasal swab, sputum, and bronchoalveolar lavage (BAL) specimens from patients with signs and symptoms of infection who are suspected of COVID-19. Results are for the identification of SARS-CoV-2 RNA. The SARS-CoV-2 RNA is generally detectable during the acute phase of infection. The Aptima SARS-CoV-2 Assay on the Epes and Epes Fusion system is intended for use by laboratory personnel specifically instructed and trained in the operation of the Epes and Epes Fusion system. The Aptima SARS-CoV-2 assay is [...] information. Performed By: #### 3 1792 #### [address] Nucleated RBC/100 WBC (Bld) [Ratio] 0 % Normal 0-0 The [facility] Comment on above: Order Comment: The A ptima SARS-CoV-2 assay is a nucleic acid amplification test intended for the qualitative detection of RNA from SARS-CoV-2 isolated and purified from nasopharyngeal (FILM SOUND ENGINEER),oropharyngeal (OP), nasal swab, sputum, and bronchoalveolar lavage (BAL) specimens from patients with signs and symptoms of infection who are suspected of COVID-19. Results are for the identification of SARS-CoV-2 RNA. The SARS-CoV-2 RNA is generally detectable during the acute phase of infection. The Aptima SARS-CoV-2 Assay on the Epes and Epes Fusion system is intended for use by laboratory personnel specifically instructed and trained in the operation of the Epes and Epes Fusion system. The Aptima SARS-CoV-2 assay is [...] information. Performed By: #### 3 1792 #### [facility] 3000 [facility]. [address] PLAT CNT 176 10*3/uL Normal 150-400 The [facility] Comment on above: Order Comment: The A ptima SARS-CoV-2 assay is a nucleic acid amplification test intended for the qualitative detection of RNA from SARS-CoV-2 isolated and purified from nasopharyngeal (FILM SOUND ENGINEER),oropharyngeal (OP), nasal swab, sputum, and bronchoalveolar lavage (BAL) specimens from patients with signs and symptoms of infection who are suspected of COVID-19. Results are for the identification of SARS-CoV-2 RNA. The SARS-CoV-2 RNA is generally detectable during the acute phase of infection. The Aptima SARS-CoV-2 Assay on the Tap2print and Tap2print Fusion system is intended for use by laboratory personnel specifically instructed and trained in the operation of the Epes and Epes Fusion system. The Aptima SARS-CoV-2 assay is [...] information. Performed By: #### 3 1792 #### [facility] 3000 [facility]. [address] RBC (Bld) [#/Vol] 2.63 10*6/uL Low 4.20-5.70 The [facility] Comment on above: Order Comment: The A ptima SARS-CoV-2 assay is a nucleic acid amplification test intended for the qualitative detection of RNA from SARS-CoV-2 isolated and purified from nasopharyngeal (FILM SOUND ENGINEER),oropharyngeal (OP), nasal swab, sputum, and bronchoalveolar lavage (BAL) specimens from patients with signs and symptoms of infection who are suspected of COVID-19. Results are for the identification of SARS-CoV-2 RNA. The SARS-CoV-2 RNA is generally detectable during the acute phase of infection. The Aptima SARS-CoV-2 Assay on the Epes and Epes Fusion system is intended for use by laboratory personnel specifically instructed and trained in the operation of the Epes and Epes Fusion system. The Aptima SARS-CoV-2 assay is [...] information. Performed By: #### 3 1792 #### [facility] 3000 [facility]. [address] WBC (Bld) [#/Vol] 4.12 10*3/uL Normal 4.00-10.60 The [facility] Comment on above: Order Comment: The A ptima SARS-CoV-2 assay is a nucleic acid amplification test intended for the qualitative detection of RNA from SARS-CoV-2 isolated and purified from nasopharyngeal (FILM SOUND ENGINEER),oropharyngeal (OP), nasal swab, sputum, and bronchoalveolar lavage (BAL) specimens from patients with signs and symptoms of infection who are suspected of COVID-19. Results are for the identification of SARS-CoV-2 RNA. The SARS-CoV-2 RNA is generally detectable during the acute phase of infection. The Aptima SARS-CoV-2 Assay on the Epes and Epes Fusion system is intended for use by laboratory personnel specifically instructed and trained in the operation of the Epes and Epes Fusion system. The Aptima SARS-CoV-2 assay is [...] information. Performed By: #### 3 1792 #### [facility] [address] *SARS-CoV-2 COVID-19on 09-23 [id number] Not Detected Normal Not Detected The [facility] Comment on above: Order Comment: The A ptima SARS-CoV-2 assay is a nucleic acid amplification testintended for the qualitative detection of RNA from SARS-CoV-2 isolatedand purified from nasopharyngeal (FILM SOUND ENGINEER),oropharyngeal (OP), nasal swab,sputum, and bronchoalveolar lavage (BAL) specimens from patients withsigns and symptoms of infection who are suspected of COVID-19.Results are for the identification of SARS-CoV-2 RNA. The SARS-CoV-2 RNAis generally detectable during the acute phase of infection.The Aptima SARS-CoV-2 Assay on the Epes and Epes Fusion system isintended for use by laboratory personnel specifically instructed andtrained in the operation of the Epes and Epes Fusion system. TheAptima SARS-CoV-2 assay is only [...] information. Performed By: #### 1 0008 #### [facility] [address] [facility] [address] BASIC METABOLIC PANELon 11-2 Calcium [Mass/Vol] 7.7 mg/dL Low 8.6-10.3 The [facility] Comment on above: Order Comment: No: D o not add to previous draw Performed By: #### 5 [id number] #### [facility] [address] [facility] [place] [address], [facility] Chloride [Moles/Vol] 109 mmol/L High 98-107 The [facility] Comment on above: Order Comment: No: D o not add to previous draw Performed By: #### 5 6101 #### [facility] [address] [place] [address], [place] CO2 [Moles/Vol] 20 mmol/L Low 21-31 The [facility] Comment on above: Order Comment: No: D o not add to previous draw Performed By: #### 5 6101 #### [facility] [address] [place] [address], [place] Creatinine [Mass/Vol] 3.95 mg/dL High 0.70-1.30 The [facility] Comment on above: Order Comment: No: D o not add to previous draw Performed By: #### 5 [id number] #### [facility] [address] [place] [address], [place] GFR/1.73 sq M predicted among blacks MDRD (S/P/Bld) [Vol rate/Area] 18 ml/min/1.73sq m Abnormal >60 The [facility] Comment on above: Order Comment: No: D o not add to previous draw Result Comment: Calc ulation may not be valid for patients over 70 years Performed By: #### 5 [id number] #### [facility] [address] [place] [address], [place] GFR/1.73 sq M predicted among non-blacks MDRD (S/P/Bld) [Vol rate/Area] 15 ml/min/1.73sq m Abnormal >60 The [facility] Comment on above: Order Comment: No: D o not add to previous draw Result Comment: Calc ulation may not be valid for patients over 70 years Performed By: #### 5 [id number] #### [facility] [address] [place] [address], [place] Glucose [Mass/Vol] 86 mg/dL Normal 70-100 The [facility] Comment on above: Order Comment: No: D o not add to previous draw Performed By: #### 5 6101 #### [facility] [address] [place] [address], [facility] Potassium [Moles/Vol] 4.0 mmol/L Normal 3.5-5.1 The [facility] Comment on above: Order Comment: No: D o not add to previous draw Performed By: #### 5 6101 #### [facility] [address] [place] [address], [place] Sodium [Moles/Vol] 135 mmol/L Low 136-145 The [facility] Comment on above: Order Comment: No: D o not add to previous draw Performed By: #### 5 6101 #### [facility] [address] [place] [address], [facility] Urea nitrogen [Mass/Vol] 35 mg/dL High 7-25 The [facility] Comment on above: Order Comment: No: D o not add to previous draw Performed By: #### 5 [id number] #### [facility] [address] [place] [address], [facility] CBC COMPLETE BLOOD COUNTon 11-22-2019 Erythrocyte distribution width (RBC) [Ratio] 16.3 % High 11.5-15.0 The [facility] Comment on above: Order Comment: No: D o not add to previous draw Performed By: #### 3 0478 #### [facility] [address] [place] [address], [facility] Hematocrit (Bld) [Volume fraction] 23.3 % Low 39.0-50.0 The [facility] Comment on above: Order Comment: No: D o not add to previous draw Performed By: #### 3 0478 #### [facility] [address] [place] [address], [facility] Hemoglobin (Bld) [Mass/Vol] 7.5 g/dL Low 13.0-17.0 The [facility] Comment on above: Order Comment: No: D o not add to previous draw Performed By: #### 3 0478 #### [facility] [address] [place] [id number], [facility] MCH (RBC) [Entitic mass] 30.2 pg Normal 27.0-33.0 The [facility] Comment on above: Order Comment: No: D o not add to previous draw Performed By: #### 3 0478 #### [facility] [address] [place] [address], [facility] MCHC (RBC) [Mass/Vol] 32.2 g/dL Normal 32.0-35.0 The [facility] Comment on above: Order Comment: No: D o not add to previous draw Performed By: #### 3 0478 #### [facility] [address] [place] [id number], [facility] MCV (RBC) [Entitic vol] 94.0 fL Normal 82.0-98.0 The [facility] Comment on above: Order Comment: No: D o not add to previous draw Performed By: #### 3 0478 #### [facility] [address] [place] [id number], [facility] Nucleated RBC/100 WBC (Bld) [Ratio] 0 % Normal 0-0 The [facility] Comment on above: Order Comment: No: D o not add to previous draw Performed By: #### 3 0478 #### [facility] [address] [place] [address], [facility] PLAT CNT 156 10*3/uL Normal 150-400 The [facility] Comment on above: Order Comment: No: D o not add to previous draw Performed By: #### 3 0478 #### [facility] [address] [place] [address], [facility] RBC (Bld) [#/Vol] 2.48 10*6/uL Low 4.20-5.70 The [facility] Comment on above: Order Comment: No: D o not add to previous draw Performed By: #### 3 0478 #### [facility] [address] [place] [address], [facility] WBC (Bld) [#/Vol] 4.20 10*3/uL Normal 4.00-10.60 The [facility] Comment on above: Order Comment: No: D o not add to previous draw Performed By: #### 3 0478 #### [facility] [address] [place] [address], [facility] MAGNESIUM BLOODon 09-22-2020 Magnesium [Mass/Vol] 1.2 mg/dL Low 1.9-2.7 The [facility] Comment on above: Order Comment: No: D o not add to previous draw Performed By: #### 5 [id number] #### [facility] [address] [place] [address], [facility] PHOSPHORUS BLOODon 0 Phosphate [Mass/Vol] 2.6 mg/dL Normal 2.5-5.0 The [facility] Comment on above: Order Comment: No: D o not add to previous draw Performed By: #### 5 [id number] #### [facility] [address] [place] [address], [facility] BASIC METABOLIC PANELon 09-03 Calcium [Mass/Vol] 7.9 mg/dL Low 8.6-10.3 The [facility] Comment on above: Order Comment: No: D o not add to previous draw Performed By: #### 5 0608 #### [facility] [address] [place] [id number], [facility] Chloride [Moles/Vol] 110 mmol/L High 98-107 The [facility] Comment on above: Order Comment: No: D o not add to previous draw Performed By: #### 5 0608 #### [facility] [address] [place] [id number], [facility] CO2 [Moles/Vol] 21 mmol/L Normal 21-31 The [facility] Comment on above: Order Comment: No: D o not add to previous draw Performed By: #### 5 0608 #### [facility] [address] [place] [address], [facility] Creatinine [Mass/Vol] 3.98 mg/dL High 0.70-1.30 The [facility] Comment on above: Order Comment: No: D o not add to previous draw Performed By: #### 5 0608 #### [facility] [address] [place] [address], [place] GFR/1.73 sq M predicted among blacks MDRD (S/P/Bld) [Vol rate/Area] 18 ml/min/1.73sq m Abnormal >60 The [facility] Comment on above: Order Comment: No: D o not add to previous draw Result Comment: Calc ulation may not be valid for patients over 70 years Performed By: #### 5 0608 #### [facility] [address] [place] [address], [facility] GFR/1.73 sq M predicted among non-blacks MDRD (S/P/Bld) [Vol rate/Area] 15 ml/min/1.73sq m Abnormal >60 The [facility] Comment on above: Order Comment: No: D o not add to previous draw Result Comment: Calc ulation may not be valid for patients over 70 years Performed By: #### 5 0608 #### [facility] [address] [place] [address], [place] Glucose [Mass/Vol] 85 mg/dL Normal 70-100 The [facility] Comment on above: Order Comment: No: D o not add to previous draw Performed By: #### 5 0608 #### [facility] [address] [place] [address], [place] Potassium [Moles/Vol] 4.1 mmol/L Normal 3.5-5.1 The [facility] Comment on above: Order Comment: No: D o not add to previous draw Performed By: #### 5 0608 #### [facility] [address] [place] [address], [place] Sodium [Moles/Vol] 137 mmol/L Normal 136-145 The [facility] Comment on above: Order Comment: No: D o not add to previous draw Performed By: #### 5 0608 #### [facility] [address] Urea nitrogen [Mass/Vol] 33 mg/dL High 7-25 The [facility] Comment on above: Order Comment: No: D o not add to previous draw Performed By: #### 5 0608 #### [facility] 3000 [facility]. [address] CBC COMPLETE BLOOD COUNTon 11-21-2019 Erythrocyte distribution width (RBC) [Ratio] 15.0 % Normal 11.5-15.0 The [facility] Comment on above: Order Comment: The A ptima SARS-CoV-2 assay is a nucleic acid amplification test intended for the qualitative detection of RNA from SARS-CoV-2 isolated and purified from nasopharyngeal (FILM SOUND ENGINEER),oropharyngeal (OP), nasal swab, sputum, and bronchoalveolar lavage (BAL) specimens from patients with signs and symptoms of infection who are suspected of COVID-19. Results are for the identification of SARS-CoV-2 RNA. The SARS-CoV-2 RNA is generally detectable during the acute phase of infection. The Aptima SARS-CoV-2 Assay on the Epes and Epes Fusion system is intended for use by laboratory personnel specifically instructed and trained in the operation of the Epes and Epes Fusion system. The Aptima SARS-CoV-2 assay is [...] information. Performed By: #### 3 1792 #### [facility] [address] [place] [address], [facility] Hematocrit (Bld) [Volume fraction] 20.8 % Low 39.0-50.0 The [facility] Comment on above: Order Comment: The A ptima SARS-CoV-2 assay is a nucleic acid amplification test intended for the qualitative detection of RNA from SARS-CoV-2 isolated and purified from nasopharyngeal (FILM SOUND ENGINEER),oropharyngeal (OP), nasal swab, sputum, and bronchoalveolar lavage (BAL) specimens from patients with signs and symptoms of infection who are suspected of COVID-19. Results are for the identification of SARS-CoV-2 RNA. The SARS-CoV-2 RNA is generally detectable during the acute phase of infection. The Aptima SARS-CoV-2 Assay on the Epes and Epes Fusion system is intended for use by laboratory personnel specifically instructed and trained in the operation of the Epes and Epes Fusion system. The Aptima SARS-CoV-2 assay is [...] information. Performed By: #### 3 1792 #### [address] Hemoglobin (Bld) [Mass/Vol] 6.8 g/dL Low 13.0-17.0 The [facility] Comment on above: Order Comment: The A ptima SARS-CoV-2 assay is a nucleic acid amplification test intended for the qualitative detection of RNA from SARS-CoV-2 isolated and purified from nasopharyngeal (FILM SOUND ENGINEER),oropharyngeal (OP), nasal swab, sputum, and bronchoalveolar lavage (BAL) specimens from patients with signs and symptoms of infection who are suspected of COVID-19. Results are for the identification of SARS-CoV-2 RNA. The SARS-CoV-2 RNA is generally detectable during the acute phase of infection. The Aptima SARS-CoV-2 Assay on the Epes and Epes Fusion system is intended for use by laboratory personnel specifically instructed and trained in the operation of the Epes and Epes Fusion system. The Aptima SARS-CoV-2 assay is [...] information. Performed By: #### 3 1792 #### [facility] [address] [place] [address], [facility] MCH (RBC) [Entitic mass] 31.2 pg Normal 27.0-33.0 The [facility] Comment on above: Order Comment: The A ptima SARS-CoV-2 assay is a nucleic acid amplification test intended for the qualitative detection of RNA from SARS-CoV-2 isolated and purified from nasopharyngeal (FILM SOUND ENGINEER),oropharyngeal (OP), nasal swab, sputum, and bronchoalveolar lavage (BAL) specimens from patients with signs and symptoms of infection who are suspected of COVID-19. Results are for the identification of SARS-CoV-2 RNA. The SARS-CoV-2 RNA is generally detectable during the acute phase of infection. The Aptima SARS-CoV-2 Assay on the Tap2print and Epes Fusion system is intended for use by laboratory personnel specifically instructed and trained in the operation of the Epes and Epes Fusion system. The Aptima SARS-CoV-2 assay is [...] and epidemiological information. Performed By: #### 3 2122 #### [facility] [address] MCHC (RBC) [Mass/Vol] 32.7 g/dL Normal 32.0-35.0 The [facility] Comment on above: Order Comment: The A ptima SARS-CoV-2 assay is a nucleic acid amplification test intended for the qualitative detection of RNA from SARS-CoV-2 isolated and purified from nasopharyngeal (FILM SOUND ENGINEER),oropharyngeal (OP), nasal swab, sputum, and bronchoalveolar lavage (BAL) specimens from patients with signs and symptoms of infection who are suspected of COVID-19. Results are for the identification of SARS-CoV-2 RNA. The SARS-CoV-2 RNA is generally detectable during the acute phase of infection. The Aptima SARS-CoV-2 Assay on the Epes and Epes Fusion system is intended for use by laboratory personnel specifically instructed and trained in the operation of the Epes and Epes Fusion system. The Aptima SARS-CoV-2 assay is [...] information. Performed By: #### 3 1792 #### [address] MCV (RBC) [Entitic vol] 95.4 fL Normal 82.0-98.0 The [facility] Comment on above: Order Comment: The A ptima SARS-CoV-2 assay is a nucleic acid amplification test intended for the qualitative detection of RNA from SARS-CoV-2 isolated and purified from nasopharyngeal (FILM SOUND ENGINEER),oropharyngeal (OP), nasal swab, sputum, and bronchoalveolar lavage (BAL) specimens from patients with signs and symptoms of infection who are suspected of COVID-19. Results are for the identification of SARS-CoV-2 RNA. The SARS-CoV-2 RNA is generally detectable during the acute phase of infection. The Aptima SARS-CoV-2 Assay on the Epes and Epes Fusion system is intended for use by laboratory personnel specifically instructed and trained in the operation of the Epes and Epes Fusion system. The Aptima SARS-CoV-2 assay is [...] information. Performed By: #### 3 1792 #### [facility] 3000 [facility]. [address] Nucleated RBC/100 WBC (Bld) [Ratio] 0 % Normal 0-0 The [facility] Comment on above: Order Comment: The A ptima SARS-CoV-2 assay is a nucleic acid amplification test intended for the qualitative detection of RNA from SARS-CoV-2 isolated and purified from nasopharyngeal (FILM SOUND ENGINEER),oropharyngeal (OP), nasal swab, sputum, and bronchoalveolar lavage (BAL) specimens from patients with signs and symptoms of infection who are suspected of COVID-19. Results are for the identification of SARS-CoV-2 RNA. The SARS-CoV-2 RNA is generally detectable during the acute phase of infection. The Aptima SARS-CoV-2 Assay on the Epes and Epes Fusion system is intended for use by laboratory personnel specifically instructed and trained in the operation of the Epes and Epes Fusion system. The Aptima SARS-CoV-2 assay is [...] information. Performed By: #### 3 1792 #### [facility] 3000 [place] [address], [facility] PLAT CNT 157 10*3/uL Normal 150-400 The [facility] Comment on above: Order Comment: The A ptima SARS-CoV-2 assay is a nucleic acid amplification test intended for the qualitative detection of RNA from SARS-CoV-2 isolated and purified from nasopharyngeal (FILM SOUND ENGINEER),oropharyngeal (OP), nasal swab, sputum, and bronchoalveolar lavage (BAL) specimens from patients with signs and symptoms of infection who are suspected of COVID-19. Results are for the identification of SARS-CoV-2 RNA. The SARS-CoV-2 RNA is generally detectable during the acute phase of infection. The Aptima SARS-CoV-2 Assay on the Epes and Epes Fusion system is intended for use by laboratory personnel specifically instructed and trained in the operation of the Epes and Epes Fusion system. The Aptima SARS-CoV-2 assay is [...] information. Performed By: #### 3 1792 #### [address] RBC (Bld) [#/Vol] 2.18 10*6/uL Low 4.20-5.70 The [facility] Comment on above: Order Comment: The A ptima SARS-CoV-2 assay is a nucleic acid amplification test intended for the qualitative detection of RNA from SARS-CoV-2 isolated and purified from nasopharyngeal (FILM SOUND ENGINEER),oropharyngeal (OP), nasal swab, sputum, and bronchoalveolar lavage (BAL) specimens from patients with signs and symptoms of infection who are suspected of COVID-19. Results are for the identification of SARS-CoV-2 RNA. The SARS-CoV-2 RNA is generally detectable during the acute phase of infection. The Aptima SARS-CoV-2 Assay on the Epes and Epes Fusion system is intended for use by laboratory personnel specifically instructed and trained in the operation of the Epes and Epes Fusion system. The Aptima SARS-CoV-2 assay is [...] information. Performed By: #### 3 1792 #### [facility] 3000 [facility]. [address] WBC (Bld) [#/Vol] 3.58 10*3/uL Low 4.00-10.60 The [facility] Comment on above: Order Comment: The A ptima SARS-CoV-2 assay is a nucleic acid amplification test intended for the qualitative detection of RNA from SARS-CoV-2 isolated and purified from nasopharyngeal (FILM SOUND ENGINEER),oropharyngeal (OP), nasal swab, sputum, and bronchoalveolar lavage (BAL) specimens from patients with signs and symptoms of infection who are suspected of COVID-19. Results are for the identification of SARS-CoV-2 RNA. The SARS-CoV-2 RNA is generally detectable during the acute phase of infection. The Aptima SARS-CoV-2 Assay on the Tap2print and Tap2print Fusion system is intended for use by laboratory personnel specifically instructed and trained in the operation of the Epes and Epes Fusion system. The Aptima SARS-CoV-2 assay is [...] information. Performed By: #### 3 1792 #### [facility] 3000 [place] [address], [facility] HEMATOCRITon 09-21-2020 Hematocrit (Bld) [Volume fraction] 24.2 % Low 39.0-50.0 The [facility] Comment on above: Order Comment: The A ptima SARS-CoV-2 assay is a nucleic acid amplification test intended for the qualitative detection of RNA from SARS-CoV-2 isolated and purified from nasopharyngeal (FILM SOUND ENGINEER),oropharyngeal (OP), nasal swab, sputum, and bronchoalveolar lavage (BAL) specimens from patients with signs and symptoms of infection who are suspected of COVID-19. Results are for the identification of SARS-CoV-2 RNA. The SARS-CoV-2 RNA is generally detectable during the acute phase of infection. The Aptima SARS-CoV-2 Assay on the Epes and Epes Fusion system is intended for use by laboratory personnel specifically instructed and trained in the operation of the Epes and Epes Fusion system. The Aptima SARS-CoV-2 assay is [...] information. Performed By: #### 3 1792 #### [address] HEMOGLOBINon 09-21-2020 Hemoglobin (Bld) [Mass/Vol] 7.8 g/dL Low 13.0-17.0 The [facility] Comment on above: Order Comment: The A ptima SARS-CoV-2 assay is a nucleic acid amplification test intended for the qualitative detection of RNA from SARS-CoV-2 isolated and purified from nasopharyngeal (FILM SOUND ENGINEER),oropharyngeal (OP), nasal swab, sputum, and bronchoalveolar lavage (BAL) specimens from patients with signs and symptoms of infection who are suspected of COVID-19. Results are for the identification of SARS-CoV-2 RNA. The SARS-CoV-2 RNA is generally detectable during the acute phase of infection. The Aptima SARS-CoV-2 Assay on the Epes and Epes Fusion system is intended for use by laboratory personnel specifically instructed and trained in the operation of the Epes and Epes Fusion system. The Aptima SARS-CoV-2 assay is [...] information. Performed By: #### 3 1792 #### [facility] 3000 [facility]. [address] PROTHROMBIN TIMEon 09-21-202 0 INR Coag (PPP) [Relative time] 1.09 {INR} Normal 0.91-1.16 The [facility] Comment on above: Order Comment: No: D [...] 1995;[id number]. Performed By: #### 5 6101 #### [facility] 3000 [facility]. [address] PT Coag (PPP) [Time] 14.1 s Normal 12.3-14.8 The [facility] Comment on above: Order Comment: No: D o not add to previous draw Result Comment: ALL RESULTS MUST BE INTERPRETED WITH RESPECT TO BLOOD DRAWING ARTIFACT OR DILUTION ERROR OF ANTICOAGULANT AT THE TIME OF SAMPLING. Performed By: #### 5 6101 #### [facility] [address] [place] [address], [facility] RBC'S 1 UNITon 11-19-2020 CROSSMATCH INTERP 1 COMP Normal The [facility] Comment on above: Order Comment: [place] nephrosis, please assess for hydronephrosis resolution Performed By: #### 8 6001 ####[facility] [place] [address], [facility] PRODUCT CODE 1 [id number] Normal The [facility] Comment on above: Order Comment: [place] nephrosis, please assess for hydronephrosis resolution Performed By: #### 8 6001 ####[facility] [place] [address], [facility] PRODUCT STATUS 1 PT Normal The [facility] Comment on above: Order Comment: [place] nephrosis, please assess for hydronephrosis resolution Result Comment: Resu lt changed by IF on 09/21/2020 11:17. The previous value was XM. Result changed by IF on 09/22/2020 00:30. The previous value was IS. Performed By: #### 8 6001 ####[facility] [place] [address], [place] UNIT ABO 1 A Normal The [facility] Comment on above: Order Comment: [place] nephrosis, please assess for hydronephrosis resolution Performed By: #### 8 6001 ####[facility] [place] [address], [place] UNIT ID 1 [id number] Normal The [facility] Comment on above: Order Comment: [place] nephrosis, please assess for hydronephrosis resolution Performed By: #### 8 6001 ####[facility] [place] [address], [place] UNIT RH 1 Positive Normal The [facility] Comment on above: Order Comment: [place] nephrosis, please assess for hydronephrosis resolution Performed By: #### 8 6001 ####[facility] [place] [address], [place] TYPE AND SCREENon 09-21-2020 ABO INTERPRETATION A Normal The [facility] Comment on above: Performed By: #### 6 2586 ####[facility]3000 [facility].[address] RH INTERPRETATION Positive Normal The [facility] Comment on above: Performed By: #### 6 2586 ####[facility] *SARS-CoV-2 COVID-19on 09-20 [id number] Not Detected Normal Not Detected The [facility] Comment on above: Order Comment: The A ptima SARS-CoV-2 assay is a nucleic acid amplification testintended for the qualitative detection of RNA from SARS-CoV-2 isolatedand purified from nasopharyngeal (FILM SOUND ENGINEER),oropharyngeal (OP), nasal swab,sputum, and bronchoalveolar lavage (BAL) specimens from patients withsigns and symptoms of infection who are suspected of COVID-19.Results are for the identification of SARS-CoV-2 RNA. The SARS-CoV-2 RNAis generally detectable during the acute phase of infection.The Aptima SARS-CoV-2 Assay on the Epes and Epes Fusion system isintended for use by laboratory personnel specifically instructed andtrained in the operation of the Epes and Epes Fusion system. TheAptima SARS-CoV-2 assay is only [...] information. Performed By: #### 1 0008 #### [facility] [address] BASIC METABOLIC PANELon 11- Calcium [Mass/Vol] 8.1 mg/dL Low 8.6-10.3 The [facility] Comment on above: Order Comment: No: D o not add to previous draw Performed By: #### 5 0608 #### [facility] [address] [place] [address], [place] Chloride [Moles/Vol] 110 mmol/L High 98-107 The [facility] Comment on above: Order Comment: No: D o not add to previous draw Performed By: #### 5 0608 #### [facility] [address] [place] [address], [place] CO2 [Moles/Vol] 21 mmol/L Normal 21-31 The [facility] Comment on above: Order Comment: No: D o not add to previous draw Performed By: #### 5 0608 #### [facility] [address] [place] [address], [place] Creatinine [Mass/Vol] 4.19 mg/dL High 0.70-1.30 The [facility] Comment on above: Order Comment: No: D o not add to previous draw Performed By: #### 5 0608 #### [facility] [address] [place] [address], [place] GFR/1.73 sq M predicted among blacks MDRD (S/P/Bld) [Vol rate/Area] 17 ml/min/1.73sq m Abnormal >60 The [facility] Comment on above: Order Comment: No: D o not add to previous draw Result Comment: Calc ulation may not be valid for patients over 70 years Performed By: #### 5 0608 #### [facility] [address] [place] [address], [place] GFR/1.73 sq M predicted among non-blacks MDRD (S/P/Bld) [Vol rate/Area] 14 ml/min/1.73sq m Abnormal >60 The [facility] Comment on above: Order Comment: No: D o not add to previous draw Result Comment: Calc ulation may not be valid for patients over 70 years Performed By: #### 5 0608 #### [facility] [address] [place] [address], [place] Glucose [Mass/Vol] 94 mg/dL Normal 70-100 The [facility] Comment on above: Order Comment: No: D o not add to previous draw Performed By: #### 5 0608 #### [facility] [address] [place] [address], [facility] Potassium [Moles/Vol] 4.4 mmol/L Normal 3.5-5.1 The [facility] Comment on above: Order Comment: No: D o not add to previous draw Performed By: #### 5 0608 #### [facility] 3000 [facility]. [address] Sodium [Moles/Vol] 137 mmol/L Normal 136-145 The [facility] Comment on above: Order Comment: No: D o not add to previous draw Performed By: #### 5 0608 #### [facility] [address] Urea nitrogen [Mass/Vol] 38 mg/dL High 7-25 The [facility] Comment on above: Order Comment: No: D o not add to previous draw Performed By: #### 5 0608 #### [facility] [address] CBC W/DIFFon 09-20-2020 ABS BASOPHILS 0.0 10*3/uL Normal 0.0-0.2 The [facility] Comment on above: Performed By: #### 3 1791 #### [facility] [address] ABS IMM GRANS 0.0 10*3/uL Normal 0.0-0.2 The [facility] Comment on above: Performed By: #### 3 1791 #### [facility] [address] ABS NEUTROPHILS 2.3 10*3/uL Normal 1.6-7.6 The [facility] Comment on above: Performed By: #### 3 1791 #### [facility] [address] [place] [address], [facility] Basophils/100 WBC (Bld) 0.3 % Normal 0.0-1.0 The [facility] Comment on above: Performed By: #### 3 1791 #### [facility] [address] [facility] [place] [address], [facility] Eosinophils (Bld) [#/Vol] 0.0 10*3/uL Normal 0.0-0.5 The [facility] Comment on above: Performed By: #### 3 1791 #### [facility] 3000 [place] [address], [facility] Eosinophils/100 WBC (Bld) 0.8 % Normal 0.0-6.0 The [facility] Comment on above: Performed By: #### 3 1791 #### [facility] 3000 [facility]. [address] Erythrocyte distribution width (RBC) [Ratio] 15.4 % High 11.5-15.0 The [facility] Comment on above: Performed By: #### 3 1791 #### [facility] 3000 [facility]. [address] Hematocrit (Bld) [Volume fraction] 21.1 % Low 39.0-50.0 The [facility] Comment on above: Performed By: #### 3 1791 #### [facility] 3000 [facility]. [address] Hemoglobin (Bld) [Mass/Vol] 7.1 g/dL Low 13.0-17.0 The [facility] Comment on above: Performed By: #### 3 1791 #### [facility] [address] [place] [address], [facility] IMMATURE GRANS 0.5 % Normal 0.0-1.0 The [facility] Comment on above: Performed By: #### 3 1791 #### [facility] [address] [place] [address], [facility] Lymphocytes (Bld) [#/Vol] 1.2 10*3/uL Normal 1.2-4.0 The [facility] Comment on above: Performed By: #### 3 1791 #### [facility] [address] [place] [address], [facility] Lymphocytes/100 WBC (Bld) 29.6 % Normal 20.0-45.0 The [facility] Comment on above: Performed By: #### 3 1791 #### [facility] [address] [place] [address], [facility] MCH (RBC) [Entitic mass] 31.7 pg Normal 27.0-33.0 The [facility] Comment on above: Performed By: #### 3 1791 #### [facility] [address] [place] [address], [facility] MCHC (RBC) [Mass/Vol] 33.6 g/dL Normal 32.0-35.0 The [facility] Comment on above: Performed By: #### 3 1791 #### [facility] [address] [place] [address], [facility] MCV (RBC) [Entitic vol] 94.2 fL Normal 82.0-98.0 The [facility] Comment on above: Performed By: #### 3 1791 #### [facility] [address] [place] [address], [facility] Monocytes (Bld) [#/Vol] 0.4 10*3/uL Normal 0.1-1.0 The [facility] Comment on above: Performed By: #### 3 1791 #### [facility] [address] [place] [address], [facility] MONOS 10.5 % Normal 5.0-12.0 The [facility] Comment on above: Performed By: #### 3 1791 #### [facility] [address] [place] [address], [facility] Neutrophils/100 WBC (Bld) 58.3 % Normal 40.0-72.0 The [facility] Comment on above: Performed By: #### 3 1792 #### [facility] [address] [place] [address], [facility] Nucleated RBC/100 WBC (Bld) [Ratio] 0 % Normal 0-0 The [facility] Comment on above: Performed By: #### 3 179 #### [facility] [address] [facility] [place] [address], [facility] PLAT CNT 160 10*3/uL Normal 150-400 The [facility] Comment on above: Performed By: #### 3 1792 #### [facility] [address] [place] [address], [facility] RBC (Bld) [#/Vol] 2.24 10*6/uL Low 4.20-5.70 The [facility] Comment on above: Performed By: #### 3 1792 #### [facility] [address] [facility] [place] [address], [facility] WBC (Bld) [#/Vol] 3.92 10*3/uL Low 4.00-10.60 The [facility] Comment on above: Performed By: #### 3 1792 #### [facility] 3000 [place] [address], [facility] CBC COMPLETE BLOOD COUNTon 11-19-2019 Erythrocyte distribution width (RBC) [Ratio] 15.3 % High 11.5-15.0 The [facility] Comment on above: Order Comment: No: D o not add to previous draw Performed By: #### 3 0478 #### [facility] [address] [place] [address], [facility] Hematocrit (Bld) [Volume fraction] 23.3 % Low 39.0-50.0 The [facility] Comment on above: Order Comment: No: D o not add to previous draw Performed By: #### 3 0478 #### [facility] [address] [place] [address], [facility] Hemoglobin (Bld) [Mass/Vol] 7.8 g/dL Low 13.0-17.0 The [facility] Comment on above: Order Comment: No: D o not add to previous draw Performed By: #### 3 0478 #### [facility] [address] [place] [address], [facility] MCH (RBC) [Entitic mass] 31.3 pg Normal 27.0-33.0 The [facility] Comment on above: Order Comment: No: D o not add to previous draw Performed By: #### 3 0478 #### [facility] [address] [facility] [place] [address], [facility] MCHC (RBC) [Mass/Vol] 33.5 g/dL Normal 32.0-35.0 The [facility] Comment on above: Order Comment: No: D o not add to previous draw Performed By: #### 3 0478 #### [facility] 3000 [facility] [place] [address], [facility] MCV (RBC) [Entitic vol] 93.6 fL Normal 82.0-98.0 The [facility] Comment on above: Order Comment: No: D o not add to previous draw Performed By: #### 3 0478 #### [facility] [address] [facility]. [address] Nucleated RBC/100 WBC (Bld) [Ratio] 0 % Normal 0-0 The [facility] Comment on above: Order Comment: No: D o not add to previous draw Performed By: #### 3 0478 #### [facility] [address] [place] [address], [facility] PLAT CNT 174 10*3/uL Normal 150-400 The [facility] Comment on above: Order Comment: No: D o not add to previous draw Performed By: #### 3 0478 #### [facility] [address] [place] [address], [facility] RBC (Bld) [#/Vol] 2.49 10*6/uL Low 4.20-5.70 The [facility] Comment on above: Order Comment: No: D o not add to previous draw Performed By: #### 3 0478 #### [facility] [address] [place] [address], [facility] WBC (Bld) [#/Vol] 5.25 10*3/uL Normal 4.00-10.60 The [facility] Comment on above: Order Comment: No: D o not add to previous draw Performed By: #### 3 0478 #### [facility] [address] [place] [address], [facility] COMP METABOLIC PANELon 09-19 Albumin [Mass/Vol] 3.1 g/dL Low 3.5-5.7 The [facility] Comment on above: Order Comment: No: D o not add to previous draw Performed By: #### 5 [id number] #### [facility] [address] [place] [address], [facility] ALKALINE PHOSPH 20 IU/L Low 34-104 The [facility] Comment on above: Order Comment: No: D o not add to previous draw Performed By: #### 5 0608 #### [facility] [address] [place] [address], [facility] ALT [Catalytic activity/Vol] 7 U/L Normal 7-52 The [facility] Comment on above: Order Comment: No: D o not add to previous draw Performed By: #### 5 0608 #### [facility] [address] [place] [address], [place] AST [Catalytic activity/Vol] 10 U/L Low 13-39 The [facility] Comment on above: Order Comment: No: D o not add to previous draw Performed By: #### 5 0608 #### [facility] [address] [place] [id number], [facility] Bilirubin [Mass/Vol] 0.4 mg/dL Normal 0.3-1.0 The [facility] Comment on above: Order Comment: No: D o not add to previous draw Performed By: #### 5 0608 #### [facility] [address] [place] [address], [place] Calcium [Mass/Vol] 8.2 mg/dL Low 8.6-10.3 The [facility] Comment on above: Order Comment: No: D o not add to previous draw Performed By: #### 5 0608 #### [facility] [address] [place] [address], [place] Chloride [Moles/Vol] 108 mmol/L High 98-107 The [facility] Comment on above: Order Comment: No: D o not add to previous draw Performed By: #### 5 0608 #### [facility] [address] [place] [address], [place] CO2 [Moles/Vol] 20 mmol/L Low 21-31 The [facility] Comment on above: Order Comment: No: D o not add to previous draw Performed By: #### 5 0608 #### [facility] [address] [place] [address], [place] Creatinine [Mass/Vol] 4.29 mg/dL High 0.70-1.30 The [facility] Comment on above: Order Comment: No: D o not add to previous draw Performed By: #### 5 0608 #### [facility] [address] [place] [address], [place] GFR/1.73 sq M predicted among blacks MDRD (S/P/Bld) [Vol rate/Area] 16 ml/min/1.73sq m Abnormal >60 The [facility] Comment on above: Order Comment: No: D o not add to previous draw Result Comment: Calc ulation may not be valid for patients over 70 years Performed By: #### 5 0608 #### [facility] [address] [place] [address], [facility] GFR/1.73 sq M predicted among non-blacks MDRD (S/P/Bld) [Vol rate/Area] 14 ml/min/1.73sq m Abnormal >60 The [facility] Comment on above: Order Comment: No: D o not add to previous draw Result Comment: Calc ulation may not be valid for patients over 70 years Performed By: #### 5 0608 #### [facility] [address] [place] [address], [place] Glucose [Mass/Vol] 93 mg/dL Normal 70-100 The [facility] Comment on above: Order Comment: No: D o not add to previous draw Performed By: #### 5 0608 #### [facility] [address] [place] [address], [place] Potassium [Moles/Vol] 4.1 mmol/L Normal 3.5-5.1 The [facility] Comment on above: Order Comment: No: D o not add to previous draw Performed By: #### 5 0608 #### [facility] [address] [place] [address], [place] Protein [Mass/Vol] 5.4 g/dL Low 6.0-8.3 The [facility] Comment on above: Order Comment: No: D o not add to previous draw Performed By: #### 5 0608 #### [facility] [address] [place] [address], [place] Sodium [Moles/Vol] 134 mmol/L Low 136-145 The [facility] Comment on above: Order Comment: No: D o not add to previous draw Performed By: #### 5 0608 #### [facility] [address] [place] [address], [place] Urea nitrogen [Mass/Vol] 39 mg/dL High 7-25 The [facility] Comment on above: Order Comment: No: D o not add to previous draw Performed By: #### 5 0608 #### [facility] [address] PROTHROMBIN TIMEon 09-19-202 0 INR Coag (PPP) [Relative time] 1.08 {INR} Normal 0.91-1.16 The [facility] Comment on above: Order Comment: No: D [...] CHEST 1995;[id number]. Performed By: #### 3 1509, [id number] #### [facility] [address] [facility] [place] [address], [facility] PT Coag (PPP) [Time] 14.0 s Normal 12.3-14.8 The [facility] Comment on above: Order Comment: No: D o not add to previous draw Result Comment: ALL RESULTS MUST BE INTERPRETED WITH RESPECT TO BLOOD DRAWING ARTIFACT OR DILUTION ERROR OF ANTICOAGULANT AT THE TIME OF SAMPLING. Performed By: #### 3 1509, [id number] #### [facility] [address] [place] [address], [facility] BASIC METABOLIC PANELon 11-1 Calcium [Mass/Vol] 8.0 mg/dL Low 8.6-10.3 The [facility] Comment on above: Order Comment: No: D o not add to previous draw Performed By: #### 5 0608 #### [facility] [address] [place] [address], [place] Chloride [Moles/Vol] 109 mmol/L High 98-107 The [facility] Comment on above: Order Comment: No: D o not add to previous draw Performed By: #### 5 0608 #### [facility] [address] [place] [address], [place] CO2 [Moles/Vol] 19 mmol/L Low 21-31 The [facility] Comment on above: Order Comment: No: D o not add to previous draw Performed By: #### 5 0608 #### [facility] [address] [place] [address], [place] Creatinine [Mass/Vol] 4.82 mg/dL High 0.70-1.30 The [facility] Comment on above: Order Comment: No: D o not add to previous draw Performed By: #### 5 0608 #### [facility] [address] [place] [address], [place] GFR/1.73 sq M predicted among blacks MDRD (S/P/Bld) [Vol rate/Area] 14 ml/min/1.73sq m Abnormal >60 The [facility] Comment on above: Order Comment: No: D o not add to previous draw Result Comment: Calc ulation may not be valid for patients over 70 years Performed By: #### 5 0608 #### [facility] [address] [place] [address], [place] GFR/1.73 sq M predicted among non-blacks MDRD (S/P/Bld) [Vol rate/Area] 12 ml/min/1.73sq m Abnormal >60 The [facility] Comment on above: Order Comment: No: D o not add to previous draw Result Comment: Calc ulation may not be valid for patients over 70 years Performed By: #### 5 0608 #### [facility] [address] [place] [address], [facility] Glucose [Mass/Vol] 94 mg/dL Normal 70-100 The [facility] Comment on above: Order Comment: No: D o not add to previous draw Performed By: #### 5 0608 #### [facility] [address] [place] [address], [place] Potassium [Moles/Vol] 4.3 mmol/L Normal 3.5-5.1 The [facility] Comment on above: Order Comment: No: D o not add to previous draw Performed By: #### 5 0608 #### [facility] [address] [place] [address], [place] Sodium [Moles/Vol] 136 mmol/L Normal 136-145 The [facility] Comment on above: Order Comment: No: D o not add to previous draw Performed By: #### 5 0608 #### [facility] [address] [place] [address], [facility] Urea nitrogen [Mass/Vol] 50 mg/dL High 7-25 The [facility] Comment on above: Order Comment: No: D o not add to previous draw Performed By: #### 5 0608 #### [facility] [address] [place] [address], [facility] CBC COMPLETE BLOOD COUNTon 11-18-2019 Erythrocyte distribution width (RBC) [Ratio] 15.6 % High 11.5-15.0 The [facility] Comment on above: Order Comment: No: D o not add to previous draw Performed By: #### 3 0478 #### [facility] [address] [place] [address], [place] Hematocrit (Bld) [Volume fraction] 22.7 % Low 39.0-50.0 The [facility] Comment on above: Order Comment: No: D o not add to previous draw Performed By: #### 3 0478 #### [facility] [address] [place] [address], [facility] Hemoglobin (Bld) [Mass/Vol] 7.5 g/dL Low 13.0-17.0 The [facility] Comment on above: Order Comment: No: D o not add to previous draw Performed By: #### 3 0478 #### [facility] [address] [place] [address], [facility] MCH (RBC) [Entitic mass] 31.1 pg Normal 27.0-33.0 The [facility] Comment on above: Order Comment: No: D o not add to previous draw Performed By: #### 3 0478 #### [facility] [address] [place] [address], [facility] MCHC (RBC) [Mass/Vol] 33.0 g/dL Normal 32.0-35.0 The [facility] Comment on above: Order Comment: No: D o not add to previous draw Performed By: #### 3 0478 #### [facility] [address] [place] [address], [facility] MCV (RBC) [Entitic vol] 94.2 fL Normal 82.0-98.0 The [facility] Comment on above: Order Comment: No: D o not add to previous draw Performed By: #### 3 0478 #### [facility] [address] [place] [address], [facility] Nucleated RBC/100 WBC (Bld) [Ratio] 0 % Normal 0-0 The [facility] Comment on above: Order Comment: No: D o not add to previous draw Performed By: #### 3 0478 #### [facility] [address] [place] [id number], [place] PLAT CNT 160 10*3/uL Normal 150-400 The [facility] Comment on above: Order Comment: No: D o not add to previous draw Performed By: #### 3 0478 #### [facility] [address] [place] [id number], [facility] RBC (Bld) [#/Vol] 2.41 10*6/uL Low 4.20-5.70 The [facility] Comment on above: Order Comment: No: D o not add to previous draw Performed By: #### 3 0478 #### [facility] [address] [place] [address], [facility] WBC (Bld) [#/Vol] 5.35 10*3/uL Normal 4.00-10.60 The [facility] Comment on above: Order Comment: No: D o not add to previous draw Performed By: #### 3 0478 #### [facility] [address] [facility]. [address] *SARS-CoV-2 COVID-19on 09-17 [id number] Not Detected Normal Not Detected The [facility] Comment on above: Order Comment: The A ptima SARS-CoV-2 assay is a nucleic acid amplification test intended for the qualitative detection of RNA from SARS-CoV-2 isolated and purified from nasopharyngeal (FILM SOUND ENGINEER),oropharyngeal (OP), nasal swab, sputum, and bronchoalveolar lavage (BAL) specimens from patients with signs and symptoms of infection who are suspected of COVID-19. Results are for the identification of SARS-CoV-2 RNA. The SARS-CoV-2 RNA is generally detectable during the acute phase of infection. The Aptima SARS-CoV-2 Assay on the Tap2print and Epes Fusion system is intended for use by laboratory personnel specifically instructed and trained in the operation of the Epes and Tap2print Fusion system. The Aptima SARS-CoV-2 assay is [...] information. Performed By: #### 3 1792 #### [facility] [address] BASIC METABOLIC PANELon 11- Calcium [Mass/Vol] 7.9 mg/dL Low 8.6-10.3 The [facility] Comment on above: Order Comment: No: D o not add to previous draw Performed By: #### 0 0071 ####[facility] [facility] [place] [address], [facility] Chloride [Moles/Vol] 107 mmol/L Normal 98-107 The [facility] Comment on above: Order Comment: No: D o not add to previous draw Performed By: #### 0 0071 ####[facility] [facility] [place] [address], [facility] CO2 [Moles/Vol] 19 mmol/L Low 21-31 The [facility] Comment on above: Order Comment: No: D o not add to previous draw Performed By: #### 0 0071 ####[facility] [place] [address], [facility] Creatinine [Mass/Vol] 5.59 mg/dL High 0.70-1.30 The [facility] Comment on above: Order Comment: No: D o not add to previous draw Performed By: #### 0 0071 ####[facility] [place] [address], [facility] GFR/1.73 sq M predicted among blacks MDRD (S/P/Bld) [Vol rate/Area] 12 ml/min/1.73sq m Abnormal >60 The [facility] Comment on above: Order Comment: No: D o not add to previous draw Result Comment: Calc ulation may not be valid for patients over 70 years Performed By: #### 0 0071 ####[facility] [place] [address], [facility] GFR/1.73 sq M predicted among non-blacks MDRD (S/P/Bld) [Vol rate/Area] 10 ml/min/1.73sq m Abnormal >60 The [facility] Comment on above: Order Comment: No: D o not add to previous draw Result Comment: Calc ulation may not be valid for patients over 70 years Performed By: #### 0 0071 ####[facility] [place] [address], [facility] Glucose [Mass/Vol] 110 mg/dL High 70-100 The [facility] Comment on above: Order Comment: No: D o not add to previous draw Performed By: #### 0 0071 ####[facility] [place] [address], [facility] Potassium [Moles/Vol] 4.0 mmol/L Normal 3.5-5.1 The [facility] Comment on above: Order Comment: No: D o not add to previous draw Performed By: #### 0 0071 ####[facility] [facility].[address] Sodium [Moles/Vol] 134 mmol/L Low 136-145 The [facility] Comment on above: Order Comment: No: D o not add to previous draw Performed By: #### 0 0071 ####[facility].[address] Urea nitrogen [Mass/Vol] 55 mg/dL High 7-25 The [facility] Comment on above: Order Comment: No: D o not add to previous draw Performed By: #### 0 0071 ####[facility].[address] CBC COMPLETE BLOOD COUNTon 11-17-2019 Erythrocyte distribution width (RBC) [Ratio] 15.8 % High 11.5-15.0 The [facility] Comment on above: Order Comment: No: D o not add to previous draw Performed By: #### 1 0008 #### [facility] [address] [place] [address], [facility] Hematocrit (Bld) [Volume fraction] 21.1 % Low 39.0-50.0 The [facility] Comment on above: Order Comment: No: D o not add to previous draw Performed By: #### 1 0008 #### [facility] [address] [facility] [place] [address], [facility] Hemoglobin (Bld) [Mass/Vol] 7.2 g/dL Low 13.0-17.0 The [facility] Comment on above: Order Comment: No: D o not add to previous draw Performed By: #### 1 0008 #### [facility] [address] [place] [address], [facility] MCH (RBC) [Entitic mass] 31.7 pg Normal 27.0-33.0 The [facility] Comment on above: Order Comment: No: D o not add to previous draw Performed By: #### 1 0008 #### [facility] [address] MCHC (RBC) [Mass/Vol] 34.1 g/dL Normal 32.0-35.0 The [facility] Comment on above: Order Comment: No: D o not add to previous draw Performed By: #### 1 0008 #### [facility] [address] [place] [address], [facility] MCV (RBC) [Entitic vol] 93.0 fL Normal 82.0-98.0 The [facility] Comment on above: Order Comment: No: D o not add to previous draw Performed By: #### 1 0008 #### [facility] [address] Nucleated RBC/100 WBC (Bld) [Ratio] 0 % Normal 0-0 The [facility] Comment on above: Order Comment: No: D o not add to previous draw Performed By: #### 1 0008 #### [facility] [address] [place] [address], [facility] PLAT CNT 148 10*3/uL Low 150-400 The [facility] Comment on above: Order Comment: No: D o not add to previous draw Performed By: #### 1 0008 #### [facility] [address] [place] [address], [facility] RBC (Bld) [#/Vol] 2.27 10*6/uL Low 4.20-5.70 The [facility] Comment on above: Order Comment: No: D o not add to previous draw Performed By: #### 1 0008 #### [facility] [address] [place] [address], [place] WBC (Bld) [#/Vol] 4.90 10*3/uL Normal 4.00-10.60 The [facility] Comment on above: Order Comment: No: D o not add to previous draw Performed By: #### 1 0008 #### [facility] [address] [place] [address], [facility] BASIC METABOLIC PANELon 11- Calcium [Mass/Vol] 7.9 mg/dL Low 8.6-10.3 The [facility] Comment on above: Order Comment: No: D o not add to previous draw Performed By: #### 5 0608 #### [facility] [address] [place] [address], [place] Chloride [Moles/Vol] 107 mmol/L Normal 98-107 The [facility] Comment on above: Order Comment: No: D o not add to previous draw Performed By: #### 5 0608 #### [facility] [address] [place] [address], [facility] CO2 [Moles/Vol] 18 mmol/L Low 21-31 The [facility] Comment on above: Order Comment: No: D o not add to previous draw Performed By: #### 5 0608 #### [facility] [address] [place] [address], [place] Creatinine [Mass/Vol] 5.65 mg/dL High 0.70-1.30 The [facility] Comment on above: Order Comment: No: D o not add to previous draw Performed By: #### 5 0608 #### [facility] [address] [place] [address], [place] GFR/1.73 sq M predicted among blacks MDRD (S/P/Bld) [Vol rate/Area] 12 ml/min/1.73sq m Abnormal >60 The [facility] Comment on above: Order Comment: No: D o not add to previous draw Result Comment: Calc ulation may not be valid for patients over 70 years Performed By: #### 5 0608 #### [facility] [address] [place] [address], [place] GFR/1.73 sq M predicted among non-blacks MDRD (S/P/Bld) [Vol rate/Area] 10 ml/min/1.73sq m Abnormal >60 The [facility] Comment on above: Order Comment: No: D o not add to previous draw Result Comment: Calc ulation may not be valid for patients over 70 years Performed By: #### 5 0608 #### [facility] [address] [place] [address], [place] Glucose [Mass/Vol] 108 mg/dL High 70-100 The [facility] Comment on above: Order Comment: No: D o not add to previous draw Performed By: #### 5 0608 #### [facility] [address] [place] [address], [place] Potassium [Moles/Vol] 3.7 mmol/L Normal 3.5-5.1 The [facility] Comment on above: Order Comment: No: D o not add to previous draw Performed By: #### 5 0608 #### [facility] [address] [place] [address], [place] Sodium [Moles/Vol] 135 mmol/L Low 136-145 The [facility] Comment on above: Order Comment: No: D o not add to previous draw Performed By: #### 5 0608 #### [facility] [address] [place] [address], [place] Urea nitrogen [Mass/Vol] 56 mg/dL High 7-25 The [facility] Comment on above: Order Comment: No: D o not add to previous draw Performed By: #### 5 0608 #### [facility] [address] [place] [address], [facility] CBC COMPLETE BLOOD COUNTon 11-16-2019 Erythrocyte distribution width (RBC) [Ratio] 16.0 % High 11.5-15.0 The [facility] Comment on above: Order Comment: No: D o not add to previous draw Performed By: #### 1 0008 #### [facility] [address] [place] [address], [facility] Hematocrit (Bld) [Volume fraction] 23.3 % Low 39.0-50.0 The [facility] Comment on above: Order Comment: No: D o not add to previous draw Performed By: #### 1 0008 #### [facility] [address] [facility] [place] [address], [facility] Hemoglobin (Bld) [Mass/Vol] 7.8 g/dL Low 13.0-17.0 The [facility] Comment on above: Order Comment: No: D o not add to previous draw Performed By: #### 1 0008 #### [facility] [address] [place] [address], [facility] MCH (RBC) [Entitic mass] 31.2 pg Normal 27.0-33.0 The [facility] [facility] Comment on above: Order Comment: No: D o not add to previous draw Performed By: #### 1 0008 #### [facility] [address] [place] [id number], [facility] MCHC (RBC) [Mass/Vol] 33.5 g/dL Normal 32.0-35.0 The [facility] Comment on above: Order Comment: No: D o not add to previous draw Performed By: #### 1 0008 #### [facility] [address] [place] [address], [facility] MCV (RBC) [Entitic vol] 93.2 fL Normal 82.0-98.0 The [facility] Comment on above: Order Comment: No: D o not add to previous draw Performed By: #### 1 0008 #### [facility] [address] [place] [address], [facility] Nucleated RBC/100 WBC (Bld) [Ratio] 0 % Normal 0-0 The [facility] Comment on above: Order Comment: No: D o not add to previous draw Performed By: #### 1 0008 #### [facility] [address] [facility] [place] [address], [facility] PLAT CNT 154 10*3/uL Normal 150-400 The [facility] Comment on above: Order Comment: No: D o not add to previous draw Performed By: #### 1 0008 #### [facility] [address] [facility] [place] [address], [facility] RBC (Bld) [#/Vol] 2.50 10*6/uL Low 4.20-5.70 The [facility] Comment on above: Order Comment: No: D o not add to previous draw Performed By: #### 1 0008 #### [facility] [address] [facility] [place] [id number], [facility] WBC (Bld) [#/Vol] 5.13 10*3/uL Normal 4.00-10.60 The [facility] Comment on above: Order Comment: No: D o not add to previous draw Performed By: #### 1 0008 #### [facility] [address] [facility] [place] [address], [facility] BASIC METABOLIC PANELon 11-1 Calcium [Mass/Vol] 8.0 mg/dL Low 8.6-10.3 The [facility] Comment on above: Order Comment: No: D o not add to previous draw Performed By: #### 5 6101 #### [facility] [address] [place] [id number], [place] Chloride [Moles/Vol] 106 mmol/L Normal 98-107 The [facility] Comment on above: Order Comment: No: D o not add to previous draw Performed By: #### 5 6101 #### [facility] [address] [place] [address], [place] CO2 [Moles/Vol] 20 mmol/L Low 21-31 The [facility] Comment on above: Order Comment: No: D o not add to previous draw Performed By: #### 5 6101 #### [facility] [address] [place] [address], [place] Creatinine [Mass/Vol] 5.90 mg/dL High 0.70-1.30 The [facility] Comment on above: Order Comment: No: D o not add to previous draw Performed By: #### 5 6101 #### [facility] [address] [place] [address], [place] GFR/1.73 sq M predicted among blacks MDRD (S/P/Bld) [Vol rate/Area] 11 ml/min/1.73sq m Abnormal >60 The [facility] Comment on above: Order Comment: No: D o not add to previous draw Result Comment: Calc ulation may not be valid for patients over 70 years Performed By: #### 5 [id number] #### [facility] [address] [place] [address], [place] GFR/1.73 sq M predicted among non-blacks MDRD (S/P/Bld) [Vol rate/Area] 9 ml/min/1.73sq m Abnormal >60 The [facility] Comment on above: Order Comment: No: D o not add to previous draw Result Comment: Calc ulation may not be valid for patients over 70 years Performed By: #### 5 6101 #### [facility] [address] [place] [address], [place] Glucose [Mass/Vol] 97 mg/dL Normal 70-100 The [facility] Comment on above: Order Comment: No: D o not add to previous draw Performed By: #### 5 6101 #### [facility] [address] [place] [address], [facility] Potassium [Moles/Vol] 3.6 mmol/L Normal 3.5-5.1 The [facility] Comment on above: Order Comment: No: D o not add to previous draw Performed By: #### 5 6101 #### [facility] [address] [place] [address], [facility] Sodium [Moles/Vol] 135 mmol/L Low 136-145 The [facility] Comment on above: Order Comment: No: D o not add to previous draw Performed By: #### 5 6101 #### [facility] [address] [place] [address], [facility] Urea nitrogen [Mass/Vol] 54 mg/dL High 7-25 The [facility] Comment on above: Order Comment: No: D o not add to previous draw Performed By: #### 5 6101 #### [facility] [address] [place] [address], [facility] CBC COMPLETE BLOOD COUNTon 11-15-2019 Erythrocyte distribution width (RBC) [Ratio] 16.4 % High 11.5-15.0 The [facility] Comment on above: Order Comment: No: D o not add to previous draw Performed By: #### 5 0608 #### [facility] [address] [place] [address], [facility] Hematocrit (Bld) [Volume fraction] 22.6 % Low 39.0-50.0 The [facility] Comment on above: Order Comment: No: D o not add to previous draw Performed By: #### 5 0608 #### [facility] [address] [place] [address], [facility] Hemoglobin (Bld) [Mass/Vol] 7.5 g/dL Low 13.0-17.0 The [facility] Comment on above: Order Comment: No: D o not add to previous draw Performed By: #### 5 0608 #### [facility] [address] [place] [address], [facility] MCH (RBC) [Entitic mass] 30.9 pg Normal 27.0-33.0 The [facility] Comment on above: Order Comment: No: D o not add to previous draw Performed By: #### 5 0608 #### [facility] [address] [place] [id number], [facility] MCHC (RBC) [Mass/Vol] 33.2 g/dL Normal 32.0-35.0 The [facility] Comment on above: Order Comment: No: D o not add to previous draw Performed By: #### 5 0608 #### [facility] [address] [place] [address], [facility] MCV (RBC) [Entitic vol] 93.0 fL Normal 82.0-98.0 The [facility] Comment on above: Order Comment: No: D o not add to previous draw Performed By: #### 5 0608 #### [facility] [address] [facility] [place] [address], [facility] Nucleated RBC/100 WBC (Bld) [Ratio] 0 % Normal 0-0 The [facility] Comment on above: Order Comment: No: D o not add to previous draw Performed By: #### 5 0608 #### [facility] [address] [facility] [place] [id number], [facility] PLAT CNT 154 10*3/uL Normal 150-400 The [facility] Comment on above: Order Comment: No: D o not add to previous draw Performed By: #### 5 0608 #### [facility] [address] [facility] [place] [address], [facility] RBC (Bld) [#/Vol] 2.43 10*6/uL Low 4.20-5.70 The [facility] Comment on above: Order Comment: No: D o not add to previous draw Performed By: #### 5 0608 #### [facility] [address] [facility] [place] [address], [facility] WBC (Bld) [#/Vol] 5.11 10*3/uL Normal 4.00-10.60 The [facility] Comment on above: Order Comment: No: D o not add to previous draw Performed By: #### 5 0608 #### [facility] [address] [facility] [address] *SARS-CoV-2 COVID-19on 09-14 [id number] Not Detected Normal Not Detected The [facility] Comment on above: Order Comment: The A ptima SARS-CoV-2 assay is a nucleic acid amplification testintended for the qualitative detection of RNA from SARS-CoV-2 isolatedand purified from nasopharyngeal (FILM SOUND ENGINEER),oropharyngeal (OP), nasal swab,sputum, and bronchoalveolar lavage (BAL) specimens from patients withsigns and symptoms of infection who are suspected of COVID-19.Results are for the identification of SARS-CoV-2 RNA. The SARS-CoV-2 RNAis generally detectable during the acute phase of infection.The Aptima SARS-CoV-2 Assay on the Epes and Epes Fusion system isintended for use by laboratory personnel specifically instructed andtrained in the operation of the Epes and Epes Fusion system. TheAptima SARS-CoV-2 assay is only [...] information. Performed By: #### 1 0008 #### [facility] [address] [facility] [address] BASIC METABOLIC PANELon 09-03 Calcium [Mass/Vol] 8.2 mg/dL Low 8.6-10.3 The [facility] Comment on above: Order Comment: No: D o not add to previous draw Performed By: #### 5 6101 #### [facility] [address] [place] [address], [place] Chloride [Moles/Vol] 107 mmol/L Normal 98-107 The [facility] Comment on above: Order Comment: No: D o not add to previous draw Performed By: #### 5 6101 #### [facility] [address] [place] [address], [place] CO2 [Moles/Vol] 22 mmol/L Normal 21-31 The [facility] Comment on above: Order Comment: No: D o not add to previous draw Performed By: #### 5 6101 #### [facility] [address] [place] [address], [place] Creatinine [Mass/Vol] 6.45 mg/dL High 0.70-1.30 The [facility] Comment on above: Order Comment: No: D o not add to previous draw Performed By: #### 5 6101 #### [facility] [address] [place] [address], [place] GFR/1.73 sq M predicted among blacks MDRD (S/P/Bld) [Vol rate/Area] 10 ml/min/1.73sq m Abnormal >60 The [facility] Comment on above: Order Comment: No: D o not add to previous draw Result Comment: Calc ulation may not be valid for patients over 70 years Performed By: #### 5 [id number] #### [facility] [address] [place] [address], [place] GFR/1.73 sq M predicted among non-blacks MDRD (S/P/Bld) [Vol rate/Area] 8 ml/min/1.73sq m Abnormal >60 The [facility] Comment on above: Order Comment: No: D o not add to previous draw Result Comment: Calc ulation may not be valid for patients over 70 years Performed By: #### 5 [id number] #### [facility] [address] [place] [address], [facility] Glucose [Mass/Vol] 99 mg/dL Normal 70-100 The [facility] Comment on above: Order Comment: No: D o not add to previous draw Performed By: #### 5 6101 #### [facility] [address] [place] [id number], [facility] Potassium [Moles/Vol] 3.8 mmol/L Normal 3.5-5.1 The [facility] Comment on above: Order Comment: No: D o not add to previous draw Performed By: #### 5 6101 #### [facility] [address] [facility] [place] [address], [facility] Sodium [Moles/Vol] 138 mmol/L Normal 136-145 The [facility] Comment on above: Order Comment: No: D o not add to previous draw Performed By: #### 5 6101 #### [facility] [address] [facility] [place] [id number], [facility] Urea nitrogen [Mass/Vol] 66 mg/dL High 7-25 The [facility] Comment on above: Order Comment: No: D o not add to previous draw Performed By: #### 5 [id number] #### [facility] [address] [facility]. [address] CBC COMPLETE BLOOD COUNTon 11-14-2019 Erythrocyte distribution width (RBC) [Ratio] 15.8 % High 11.5-15.0 The [facility] Comment on above: Order Comment: The A ptima SARS-CoV-2 assay is a nucleic acid amplification test intended for the qualitative detection of RNA from SARS-CoV-2 isolated and purified from nasopharyngeal (FILM SOUND ENGINEER),oropharyngeal (OP), nasal swab, sputum, and bronchoalveolar lavage (BAL) specimens from patients with signs and symptoms of infection who are suspected of COVID-19. Results are for the identification of SARS-CoV-2 RNA. The SARS-CoV-2 RNA is generally detectable during the acute phase of infection. The Aptima SARS-CoV-2 Assay on the Tap2print and Edusoft system is intended for use by laboratory personnel specifically instructed and trained in the operation of the Epes and Epes Fusion system. The Aptima SARS-CoV-2 assay is [...] information. Performed By: #### 3 1792 #### [facility] [address] [place] [address], [facility] Hematocrit (Bld) [Volume fraction] 21.0 % Low 39.0-50.0 The [facility] Comment on above: Order Comment: The A ptima SARS-CoV-2 assay is a nucleic acid amplification test intended for the qualitative detection of RNA from SARS-CoV-2 isolated and purified from nasopharyngeal (FILM SOUND ENGINEER),oropharyngeal (OP), nasal swab, sputum, and bronchoalveolar lavage (BAL) specimens from patients with signs and symptoms of infection who are suspected of COVID-19. Results are for the identification of SARS-CoV-2 RNA. The SARS-CoV-2 RNA is generally detectable during the acute phase of infection. The Aptima SARS-CoV-2 Assay on the Epes and Epes Fusion system is intended for use by laboratory personnel specifically instructed and trained in the operation of the Epes and Epes Fusion system. The Aptima SARS-CoV-2 assay is [...] information. Performed By: #### 3 1792 #### [facility] [address] [place] [address], [facility] Hemoglobin (Bld) [Mass/Vol] 6.8 g/dL Low 13.0-17.0 The [facility] Comment on above: Order Comment: The A ptima SARS-CoV-2 assay is a nucleic acid amplification test intended for the qualitative detection of RNA from SARS-CoV-2 isolated and purified from nasopharyngeal (FILM SOUND ENGINEER),oropharyngeal (OP), nasal swab, sputum, and bronchoalveolar lavage (BAL) specimens from patients with signs and symptoms of infection who are suspected of COVID-19. Results are for the identification of SARS-CoV-2 RNA. The SARS-CoV-2 RNA is generally detectable during the acute phase of infection. The Aptima SARS-CoV-2 Assay on the Tap2print and Tap2print Fusion system is intended for use by laboratory personnel specifically instructed and trained in the operation of the Epes and Tap2print Fusion system. The Aptima SARS-CoV-2 assay is [...] information. Performed By: #### 3 1792 #### [address] MCH (RBC) [Entitic mass] 30.9 pg Normal 27.0-33.0 The [facility] Comment on above: Order Comment: The A ptima SARS-CoV-2 assay is a nucleic acid amplification test intended for the qualitative detection of RNA from SARS-CoV-2 isolated and purified from nasopharyngeal (FILM SOUND ENGINEER),oropharyngeal (OP), nasal swab, sputum, and bronchoalveolar lavage (BAL) specimens from patients with signs and symptoms of infection who are suspected of COVID-19. Results are for the identification of SARS-CoV-2 RNA. The SARS-CoV-2 RNA is generally detectable during the acute phase of infection. The Aptima SARS-CoV-2 Assay on the Epes and Epes Fusion system is intended for use by laboratory personnel specifically instructed and trained in the operation of the Epes and Epes Fusion system. The Aptima SARS-CoV-2 assay is [...] and epidemiological information. Performed By: #### 3 [id number] #### [facility] [address] [facility] [place], [place] [id number] [place] [address] MCHC (RBC) [Mass/Vol] 32.4 g/dL Normal 32.0-35.0 The [facility] Comment on above: Order Comment: The A ptima SARS-CoV-2 assay is a nucleic acid amplification test intended for the qualitative detection of RNA from SARS-CoV-2 isolated and purified from nasopharyngeal (FILM SOUND ENGINEER),oropharyngeal (OP), nasal swab, sputum, and bronchoalveolar lavage (BAL) specimens from patients with signs and symptoms of infection who are suspected of COVID-19. Results are for the identification of SARS-CoV-2 RNA. The SARS-CoV-2 RNA is generally detectable during the acute phase of infection. The Aptima SARS-CoV-2 Assay on the Tap2print and Epes Fusion system is intended for use by laboratory personnel specifically instructed and trained in the operation of the Epes and Epes Fusion system. The Aptima SARS-CoV-2 assay is [...] and epidemiological information. Performed By: #### 3 [id number] #### [facility] [address] [facility] [place] [address], [facility] MCV (RBC) [Entitic vol] 95.5 fL Normal 82.0-98.0 The [facility] Comment on above: Order Comment: The A ptima SARS-CoV-2 assay is a nucleic acid amplification test intended for the qualitative detection of RNA from SARS-CoV-2 isolated and purified from nasopharyngeal (FILM SOUND ENGINEER),oropharyngeal (OP), nasal swab, sputum, and bronchoalveolar lavage (BAL) specimens from patients with signs and symptoms of infection who are suspected of COVID-19. Results are for the identification of SARS-CoV-2 RNA. The SARS-CoV-2 RNA is generally detectable during the acute phase of infection. The Aptima SARS-CoV-2 Assay on the Epes and Epes Fusion system is intended for use by laboratory personnel specifically instructed and trained in the operation of the Epes and Epes Fusion system. The Aptima SARS-CoV-2 assay is [...] information. Performed By: #### 3 1792 #### [address] Nucleated RBC/100 WBC (Bld) [Ratio] 0 % Normal 0-0 The [facility] Comment on above: Order Comment: The A ptima SARS-CoV-2 assay is a nucleic acid amplification test intended for the qualitative detection of RNA from SARS-CoV-2 isolated and purified from nasopharyngeal (FILM SOUND ENGINEER),oropharyngeal (OP), nasal swab, sputum, and bronchoalveolar lavage (BAL) specimens from patients with signs and symptoms of infection who are suspected of COVID-19. Results are for the identification of SARS-CoV-2 RNA. The SARS-CoV-2 RNA is generally detectable during the acute phase of infection. The Aptima SARS-CoV-2 Assay on the Epes and Epes Fusion system is intended for use by laboratory personnel specifically instructed and trained in the operation of the Epes and Epes Fusion system. The Aptima SARS-CoV-2 assay is [...] information. Performed By: #### 3 1792 #### [facility] [address] PLAT CNT 164 10*3/uL Normal 150-400 The [facility] Comment on above: Order Comment: The A ptima SARS-CoV-2 assay is a nucleic acid amplification test intended for the qualitative detection of RNA from SARS-CoV-2 isolated and purified from nasopharyngeal (FILM SOUND ENGINEER),oropharyngeal (OP), nasal swab, sputum, and bronchoalveolar lavage (BAL) specimens from patients with signs and symptoms of infection who are suspected of COVID-19. Results are for the identification of SARS-CoV-2 RNA. The SARS-CoV-2 RNA is generally detectable during the acute phase of infection. The Aptima SARS-CoV-2 Assay on the Epes and Epes Fusion system is intended for use by laboratory personnel specifically instructed and trained in the operation of the Epes and Epes Fusion system. The Aptima SARS-CoV-2 assay is [...] information. Performed By: #### 3 1792 #### [facility] [address] [facility] [place] [address], [facility] RBC (Bld) [#/Vol] 2.20 10*6/uL Low 4.20-5.70 The [facility] Comment on above: Order Comment: The A ptima SARS-CoV-2 assay is a nucleic acid amplification test intended for the qualitative detection of RNA from SARS-CoV-2 isolated and purified from nasopharyngeal (FILM SOUND ENGINEER),oropharyngeal (OP), nasal swab, sputum, and bronchoalveolar lavage (BAL) specimens from patients with signs and symptoms of infection who are suspected of COVID-19. Results are for the identification of SARS-CoV-2 RNA. The SARS-CoV-2 RNA is generally detectable during the acute phase of infection. The Aptima SARS-CoV-2 Assay on the Epes and Epes Fusion system is intended for use by laboratory personnel specifically instructed and trained in the operation of the Epes and Epes Fusion system. The Aptima SARS-CoV-2 assay is [...] information. Performed By: #### 3 1792 #### [facility] [address] WBC (Bld) [#/Vol] 5.14 10*3/uL Normal 4.00-10.60 The [facility] Comment on above: Order Comment: The A ptima SARS-CoV-2 assay is a nucleic acid amplification test intended for the qualitative detection of RNA from SARS-CoV-2 isolated and purified from nasopharyngeal (FILM SOUND ENGINEER),oropharyngeal (OP), nasal swab, sputum, and bronchoalveolar lavage (BAL) specimens from patients with signs and symptoms of infection who are suspected of COVID-19. Results are for the identification of SARS-CoV-2 RNA. The SARS-CoV-2 RNA is generally detectable during the acute phase of infection. The Aptima SARS-CoV-2 Assay on the Epes and Epes Fusion system is intended for use by laboratory personnel specifically instructed and trained in the operation of the Epes and Epes Fusion system. The Aptima SARS-CoV-2 assay is [...] information. Performed By: #### 3 1792 #### [facility] [address] [place] [address], [facility] HEMATOCRITon 09-14-2020 Hematocrit (Bld) [Volume fraction] 23.9 % Low 39.0-50.0 The [facility] Comment on above: Order Comment: The A ptima SARS-CoV-2 assay is a nucleic acid amplification test intended for the qualitative detection of RNA from SARS-CoV-2 isolated and purified from nasopharyngeal (FILM SOUND ENGINEER),oropharyngeal (OP), nasal swab, sputum, and bronchoalveolar lavage (BAL) specimens from patients with signs and symptoms of infection who are suspected of COVID-19. Results are for the identification of SARS-CoV-2 RNA. The SARS-CoV-2 RNA is generally detectable during the acute phase of infection. The Aptima SARS-CoV-2 Assay on the Tap2print and Epes Fusion system is intended for use by laboratory personnel specifically instructed and trained in the operation of the Epes and Epes Fusion system. The Aptima SARS-CoV-2 assay is [...] information. Performed By: #### 3 1792 #### [facility] [address] [place] [address], [facility] HEMOGLOBINon 09-14-2020 Hemoglobin (Bld) [Mass/Vol] 8.0 g/dL Low 13.0-17.0 The [facility] Comment on above: Order Comment: The A ptima SARS-CoV-2 assay is a nucleic acid amplification test intended for the qualitative detection of RNA from SARS-CoV-2 isolated and purified from nasopharyngeal (FILM SOUND ENGINEER),oropharyngeal (OP), nasal swab, sputum, and bronchoalveolar lavage (BAL) specimens from patients with signs and symptoms of infection who are suspected of COVID-19. Results are for the identification of SARS-CoV-2 RNA. The SARS-CoV-2 RNA is generally detectable during the acute phase of infection. The Aptima SARS-CoV-2 Assay on the Epes and Tap2[employer] Fusion system is intended for use by laboratory personnel specifically instructed and trained in the operation of the Epes and Epes Fusion system. The Aptima SARS-CoV-2 assay is [...] information. Performed By: #### 3 1792 #### [facility] [address] [place] [address], [facility] RBC'S 1 UNITon 09-14-2020 CROSSMATCH INTERP 1 COMP Normal [facility] Comment on above: Order Comment: [place] nephrosis, please assess for hydronephrosis resolution Performed By: #### 8 6001 ####[facility] [place] [address], [facility] PRODUCT CODE 1 E0336 Normal [facility] Comment on above: Order Comment: [place] nephrosis, please assess for hydronephrosis resolution Performed By: #### 8 6001 ####[facility] [place] [address], [facility] PRODUCT STATUS 1 PT Normal The [facility] Comment on above: Order Comment: [place] nephrosis, please assess for hydronephrosis resolution Result Comment: Resu lt changed by IF on 09/14/2020 12:52. The previous value was XM. Result changed by IF on 09/15/2020 00:30. The previous value was IS. Performed By: #### 8 6001 ####[facility] [place] [address], [facility] UNIT ABO 1 A Normal The [facility] Comment on above: Order Comment: [place] nephrosis, please assess for hydronephrosis resolution Performed By: #### 8 6001 ####[facility] [place] [address], [facility] UNIT ID 1 [id number] Normal The [facility] Comment on above: Order Comment: [place] nephrosis, please assess for hydronephrosis resolution Performed By: #### 8 6001 ####[facility] [place] [address], [facility] UNIT RH 1 Positive Normal The [facility] Comment on above: Order Comment: [place] nephrosis, please assess for hydronephrosis resolution Performed By: #### 8 6001 ####[facility] [place] [address], [facility] TYPE AND SCREENon 09-14-2020 ABO INTERPRETATION A Normal [facility] Comment on above: Performed By: #### 3 1509, [id number] #### [facility] [address] [place] [address], [facility] RH INTERPRETATION Positive Normal The [facility] Comment on above: Performed By: #### 3 1509, [id number] #### [facility] [address] [place] [address], [facility] US RENALon 09-14-2020 US RENAL [facility] Department of Radiology [address] [place] [id number] ===== Patient Name: CHANO GOMEZ : 1945 Sex: M Age: Race: White Pt. Location: [address] [place] [address] Patient Status: I Ordered Date: 09/14/2020 7:30:00 [...] catheter. Electronically signed: NA MCCALLUM. Transcribed by: [id number], User Resident: Electronically Signed by: NA MCCALLUM @ 09/14/2020 12:52 PM Normal The [facility] Comment on above: Order Comment: [place] nephrosis, please assess for hydronephrosis resolution BASIC METABOLIC PANELon 09-03 Calcium [Mass/Vol] 8.5 mg/dL Low 8.6-10.3 The [facility] Comment on above: Order Comment: No: D o not add to previous draw Performed By: #### 0 0071 ####[facility] [address], [facility] Chloride [Moles/Vol] 103 mmol/L Normal 98-107 The [facility] Comment on above: Order Comment: No: D o not add to previous draw Performed By: #### 0 0071 ####[facility] [place] [address], [place] CO2 [Moles/Vol] 24 mmol/L Normal 21-31 The [facility] Comment on above: Order Comment: No: D o not add to previous draw Performed By: #### 0 0071 ####[facility] [facility] [place] [address], [facility] Creatinine [Mass/Vol] 7.51 mg/dL High 0.70-1.30 The [facility] Comment on above: Order Comment: No: D o not add to previous draw Performed By: #### 0 0071 ####[facility] [facility] [place] [address], [facility] GFR/1.73 sq M predicted among blacks MDRD (S/P/Bld) [Vol rate/Area] 9 ml/min/1.73sq m Abnormal >60 The [facility] Comment on above: Order Comment: No: D o not add to previous draw Result Comment: Calc ulation may not be valid for patients over 70 years Performed By: #### 0 0071 ####[facility] [place] [address], [place] GFR/1.73 sq M predicted among non-blacks MDRD (S/P/Bld) [Vol rate/Area] 7 ml/min/1.73sq m Abnormal >60 The [facility] Comment on above: Order Comment: No: D o not add to previous draw Result Comment: Calc ulation may not be valid for patients over 70 years Performed By: #### 0 0071 ####[facility] [place] [address], [place] Glucose [Mass/Vol] 102 mg/dL High 70-100 The [facility] Comment on above: Order Comment: No: D o not add to previous draw Performed By: #### 0 0071 ####[facility] [place] [address], [facility] Potassium [Moles/Vol] 3.4 mmol/L Low 3.5-5.1 The [facility] Comment on above: Order Comment: No: D o not add to previous draw Performed By: #### 0 0071 ####[facility] [place] [address], [facility] Sodium [Moles/Vol] 137 mmol/L Normal 136-145 The [facility] Comment on above: Order Comment: No: D o not add to previous draw Performed By: #### 0 0071 ####[facility] [facility].[address] Urea nitrogen [Mass/Vol] 74 mg/dL High 7-25 The [facility] Comment on above: Order Comment: No: D o not add to previous draw Performed By: #### 0 0071 ####[facility] [facility].[address] BMPon 09-13-2020 Urea nitrogen [Mass/Vol] 93 mg/dL Abnormal 5-21 [facility] Comment on above: Result Comment: Crit ical Result [id number] Called to JONATHAN CASE AT ER by VICENTA DOWNS And Read Back For Confirmation at: 09/10/2020 10:55:01 Results Verified By Repeat Analysis. Performed By: #### 2 [id number], [id number], [id number], [id number], [id number], [id number], [id number], [id number], [id number], [id number], [id number], [id number], [id number], [id number] ####[facility] [address] [place] [address] CBC COMPLETE BLOOD COUNTon 1 11-13-2019 Erythrocyte distribution width (RBC) [Ratio] 15.9 % High 11.5-15.0 The [facility] Comment on above: Order Comment: No: D o not add to previous draw Performed By: #### 1 0008 #### [facility] [address] [place] [address], [facility] Hematocrit (Bld) [Volume fraction] 21.6 % Low 39.0-50.0 The [facility] Comment on above: Order Comment: No: D o not add to previous draw Performed By: #### 1 0008 #### [facility] [address] [place] [address], [facility] Hemoglobin (Bld) [Mass/Vol] 7.3 g/dL Low 13.0-17.0 The [facility] Comment on above: Order Comment: No: D o not add to previous draw Performed By: #### 1 0008 #### [facility] [address] [place] [address], [facility] MCH (RBC) [Entitic mass] 31.6 pg Normal 27.0-33.0 The [facility] Comment on above: Order Comment: No: D o not add to previous draw Performed By: #### 1 0008 #### [facility] [address] [place] [address], [facility] MCHC (RBC) [Mass/Vol] 33.8 g/dL Normal 32.0-35.0 The [facility] Comment on above: Order Comment: No: D o not add to previous draw Performed By: #### 1 0008 #### [facility] [address] [place] [address], [facility] MCV (RBC) [Entitic vol] 93.5 fL Normal 82.0-98.0 The [facility] Comment on above: Order Comment: No: D o not add to previous draw Performed By: #### 1 0008 #### [facility] [address] [place] [address], [facility] Nucleated RBC/100 WBC (Bld) [Ratio] 0 % Normal 0-0 The [facility] Comment on above: Order Comment: No: D o not add to previous draw Performed By: #### 1 0008 #### [facility] [address] [place] [address], [facility] PLAT CNT 186 10*3/uL Normal 150-400 The [facility] Comment on above: Order Comment: No: D o not add to previous draw Performed By: #### 1 0008 #### [facility] [address] [place] [address], [facility] RBC (Bld) [#/Vol] 2.31 10*6/uL Low 4.20-5.70 The [facility] Comment on above: Order Comment: No: D o not add to previous draw Performed By: #### 1 0008 #### [facility] [address] [place] [address], [facility] WBC (Bld) [#/Vol] 4.43 10*3/uL Normal 4.00-10.60 The [facility] Comment on above: Order Comment: No: D o not add to previous draw Performed By: #### 1 0008 #### [facility] [address] [place] [address], [facility] *URINE CATH CULTUREon 2019 *URINE CATH CULTURE Clinical Report: (D) Specimen/Source: URINE/CATHETER BERNAL Collected: 09/12/2020 12:16 Status: Final Last Updated: 09/15/2020 09:31 CULT RES (Final) NO GROWTH 48 HOURS Normal The [facility] Comment on above: Performed By: #### 3 0478 #### [facility] [address] [place] [address], [facility] BASIC METABOLIC PANELon - Calcium [Mass/Vol] 8.5 mg/dL Low 8.6-10.3 The [facility] Comment on above: Order Comment: No: D o not add to previous draw Performed By: #### 5 6101 #### [facility] [address] [place] [address], [place] Chloride [Moles/Vol] 103 mmol/L Normal 98-107 The [facility] Comment on above: Order Comment: No: D o not add to previous draw Performed By: #### 5 6101 #### [facility] [address] [place] [address], [place] CO2 [Moles/Vol] 25 mmol/L Normal 21-31 The [facility] Comment on above: Order Comment: No: D o not add to previous draw Performed By: #### 5 6101 #### [facility] [address] [place] [address], [place] Creatinine [Mass/Vol] 8.48 mg/dL High 0.70-1.30 The [facility] Comment on above: Order Comment: No: D o not add to previous draw Performed By: #### 5 6101 #### [facility] [address] [place] [address], [place] GFR/1.73 sq M predicted among blacks MDRD (S/P/Bld) [Vol rate/Area] 7 ml/min/1.73sq m Abnormal >60 The [facility] Comment on above: Order Comment: No: D o not add to previous draw Result Comment: Calc ulation may not be valid for patients over 70 years Performed By: #### 5 6101 #### [facility] [address] [place] [address], [place] GFR/1.73 sq M predicted among non-blacks MDRD (S/P/Bld) [Vol rate/Area] 6 ml/min/1.73sq m Abnormal >60 The [facility] Comment on above: Order Comment: No: D o not add to previous draw Result Comment: Calc ulation may not be valid for patients over 70 years Performed By: #### 5 6101 #### [facility] [address] [place] [address], [place] Glucose [Mass/Vol] 103 mg/dL High 70-100 The [facility] Comment on above: Order Comment: No: D o not add to previous draw Performed By: #### 5 6101 #### [facility] [address] [place] [address], [facility] Potassium [Moles/Vol] 3.5 mmol/L Normal 3.5-5.1 The [facility] Comment on above: Order Comment: No: D o not add to previous draw Performed By: #### 5 6101 #### [facility] [address] [place] [address], [facility] Sodium [Moles/Vol] 141 mmol/L Normal 136-145 The [facility] Comment on above: Order Comment: No: D o not add to previous draw Performed By: #### 5 6101 #### [facility] [address] [place] [address], [facility] Urea nitrogen [Mass/Vol] 85 mg/dL High 7-25 The [facility] Comment on above: Order Comment: No: D o not add to previous draw Performed By: #### 5 6101 #### [facility] [address] [place] [address], [facility] CBC COMPLETE BLOOD COUNTon 11-12-2019 Erythrocyte distribution width (RBC) [Ratio] 15.8 % High 11.5-15.0 The [facility] Comment on above: Order Comment: No: D o not add to previous draw Performed By: #### 3 0478 #### [facility] [address] [place] [address], [facility] Hematocrit (Bld) [Volume fraction] 23.6 % Low 39.0-50.0 The [facility] Comment on above: Order Comment: No: D o not add to previous draw Performed By: #### 3 0478 #### [facility] [address] [place] [address], [facility] Hemoglobin (Bld) [Mass/Vol] 7.8 g/dL Low 13.0-17.0 The [facility] Comment on above: Order Comment: No: D o not add to previous draw Performed By: #### 3 0478 #### [facility] [address] [place] [address], [facility] MCH (RBC) [Entitic mass] 31.3 pg Normal 27.0-33.0 The [facility] Comment on above: Order Comment: No: D o not add to previous draw Performed By: #### 3 0478 #### [facility] [address] [place] [id number], [facility] MCHC (RBC) [Mass/Vol] 33.1 g/dL Normal 32.0-35.0 The [facility] Comment on above: Order Comment: No: D o not add to previous draw Performed By: #### 3 0478 #### [facility] [address] [place] [address], [facility] MCV (RBC) [Entitic vol] 94.8 fL Normal 82.0-98.0 The [facility] Comment on above: Order Comment: No: D o not add to previous draw Performed By: #### 3 0478 #### [facility] [address] [facility] [place] [address], [facility] Nucleated RBC/100 WBC (Bld) [Ratio] 0 % Normal 0-0 The [facility] Comment on above: Order Comment: No: D o not add to previous draw Performed By: #### 3 0478 #### [facility] [address] [facility] [place] [address], [facility] PLAT CNT 176 10*3/uL Normal 150-400 The [facility] Comment on above: Order Comment: No: D o not add to previous draw Performed By: #### 3 0478 #### [facility] [address] [facility] [place] [address], [facility] RBC (Bld) [#/Vol] 2.49 10*6/uL Low 4.20-5.70 The [facility] Comment on above: Order Comment: No: D o not add to previous draw Performed By: #### 3 0478 #### [facility] [address] [place] [address], [facility] WBC (Bld) [#/Vol] 5.72 10*3/uL Normal 4.00-10.60 The [facility] Comment on above: Order Comment: No: D o not add to previous draw Performed By: #### 3 0478 #### [facility] [address] [place] [address], [facility] MAGNESIUM BLOODon 09-12-2020 Magnesium [Mass/Vol] 2.0 mg/dL Normal 1.9-2.7 The [facility] Comment on above: Order Comment: No: D o not add to previous draw Performed By: #### 5 6101 #### [facility] [address] [place] [address], [facility] URINALYSIS REFLEXon 09-12-20 20 Appearance (U) CLEAR Normal CLEAR The [facility] Comment on above: Order Comment: [place] nephrosis, please assess for hydronephrosis resolution Performed By: #### 3 0965 ####[facility] [place] [address], [facility] Bilirubin [Mass/Vol] Negative Normal NEGATIVE The [facility] Comment on above: Order Comment: [place] nephrosis, please assess for hydronephrosis resolution Performed By: #### 3 0965 ####[facility] [place] [address], [facility] BLOOD LARGE Abnormal NEGATIVE The [facility] Comment on above: Order Comment: [place] nephrosis, please assess for hydronephrosis resolution Performed By: #### 3 0965 ####[facility] [place] [address], [place] Color (U) STRAW Abnormal YELLOW The [facility] Comment on above: Order Comment: [place] nephrosis, please assess for hydronephrosis resolution Performed By: #### 3 0965 ####[facility] [place] [address], [place] EPIS NONE SEEN Normal FEW,OCC,NON E SEEN The [facility] Comment on above: Order Comment: [place] nephrosis, please assess for hydronephrosis resolution Performed By: #### 3 0965 ####[facility] [place] [address], [facility] Glucose [Mass/Vol] 50 mg/dL Abnormal NEGATIVE The [facility] Comment on above: Order Comment: [place] nephrosis, please assess for hydronephrosis resolution Performed By: #### 3 0965 ####[facility] [place] [address], [facility] KETONE Negative Normal NEGATIVE The [facility] Comment on above: Order Comment: [place] nephrosis, please assess for hydronephrosis resolution Performed By: #### 3 0965 ####[facility] [place] [address], [facility] LEUK DEJAH SMALL Abnormal NEGATIVE The [facility] Comment on above: Order Comment: [place] nephrosis, please assess for hydronephrosis resolution Performed By: #### 3 0965 ####[facility] [place] [address], [facility] Nitrite Ql (U) Negative Normal NEGATIVE The [facility] Comment on above: Order Comment: [place] nephrosis, please assess for hydronephrosis resolution Performed By: #### 3 0965 ####[facility] [place] [address], [facility] pH (Bld) 7.0 Normal 5.0-8.0 The [facility] Comment on above: Order Comment: [place] nephrosis, please assess for hydronephrosis resolution Performed By: #### 3 0965 ####[facility] [place] [address], [facility] Protein (U) [Mass/Vol] 30 mg/dL Abnormal NEGATIVE Th e [facility] Comment on above: Order Comment: [place] nephrosis, please assess for hydronephrosis resolution Performed By: #### 3 0965 ####[facility] RBC (U) [#/Vol] 51-100 Abnormal NONE SEEN The [facility] Comment on above: Order Comment: [place] nephrosis, please assess for hydronephrosis resolution Performed By: #### 3 0965 ####[facility] SPEC GRAV 1.008 Low 1.015-1.020 The [facility] Comment on above: Order Comment: [place] nephrosis, please assess for hydronephrosis resolution Performed By: #### 3 0965 ####[facility] [facility] WBC UA 6-10 Abnormal NONE SEEN The [facility] Comment on above: Order Comment: [place] nephrosis, please assess for hydronephrosis resolution Performed By: #### 3 0965 ####[facility] BASIC METABOLIC PANELon 11-0 9-2020 Calcium [Mass/Vol] 8.6 mg/dL Normal 8.6-10.3 The [facility] Comment on above: Order Comment: [place] nephrosis, please assess for hydronephrosis resolution Performed By: #### 4 999, 19290, 85695 ####[facility] Chloride [Moles/Vol] 103 mmol/L Normal 98-107 The [facility] Comment on above: Order Comment: [place] nephrosis, please assess for hydronephrosis resolution Performed By: #### 4 1000, 49942, 85456 ####[facility] [place] [address], [facility] CO2 [Moles/Vol] 23 mmol/L Normal 21-31 The [facility] Comment on above: Order Comment: [place] nephrosis, please assess for hydronephrosis resolution Performed By: #### 4 1000, 94248, 00007 ####[facility] [place] [address], [place] Creatinine [Mass/Vol] 9.15 mg/dL Critically high 0.70-1.30 The [facility] Comment on above: Order Comment: [place] nephrosis, please assess for hydronephrosis resolution Performed By: #### 4 1000, 81237, 37972 ####[facility] [place] [address], [facility] GFR/1.73 sq M predicted among blacks MDRD (S/P/Bld) [Vol rate/Area] 7 ml/min/1.73sq m Abnormal >60 The [facility] Comment on above: Order Comment: [place] nephrosis, please assess for hydronephrosis resolution Result Comment: Calc ulation may not be valid for patients over 70 years Performed By: #### 4 999, 52638, 62733 ####[facility] [place] [address], [facility] GFR/1.73 sq M predicted among non-blacks MDRD (S/P/Bld) [Vol rate/Area] 6 ml/min/1.73sq m Abnormal >60 The [facility] Comment on above: Order Comment: [place] nephrosis, please assess for hydronephrosis resolution Result Comment: Calc ulation may not be valid for patients over 70 years Performed By: #### 4 1000, 07024, 93124 ####[facility] [place] [address], [place] Glucose [Mass/Vol] 136 mg/dL High 70-100 The [facility] Comment on above: Order Comment: [place] nephrosis, please assess for hydronephrosis resolution Performed By: #### 4 1000, 94157, 04215 ####[facility] [place] [address], [place] Potassium [Moles/Vol] 4.0 mmol/L Normal 3.5-5.1 The [facility] Comment on above: Order Comment: [place] nephrosis, please assess for hydronephrosis resolution Performed By: #### 4 1000, 28571, 95096 ####[facility]3000 [facility].[address] Sodium [Moles/Vol] 139 mmol/L Normal 136-145 The [facility] Comment on above: Order Comment: [place] nephrosis, please assess for hydronephrosis resolution Performed By: #### 4 1000, 10637, 33880 ####[facility]3000 [facility].[address] Urea nitrogen [Mass/Vol] 97 mg/dL High 7-25 The [facility] Comment on above: Order Comment: [place] nephrosis, please assess for hydronephrosis resolution Performed By: #### 4 1000, 90148, 02394 ####[facility].[address] CBC W/DIFFon 09-11-2020 ABS BASOPHILS 0.0 10*3/uL Normal 0.0-0.2 The [facility] Comment on above: Order Comment: No: D o not add to previous draw Performed By: #### 5 0103 #### [facility] [address] [place] [address], [facility] ABS IMM GRANS 0.0 10*3/uL Normal 0.0-0.2 The [facility] Comment on above: Order Comment: No: D o not add to previous draw Performed By: #### 5 0103 #### [facility] [address] [place] [address], [facility] ABS NEUTROPHILS 4.4 10*3/uL Normal 1.6-7.6 The [facility] Comment on above: Order Comment: No: D o not add to previous draw Performed By: #### 5 0103 #### [facility] [address] [place] [address], [facility] Basophils/100 WBC (Bld) 0.2 % Normal 0.0-1.0 The [facility] Comment on above: Order Comment: No: D o not add to previous draw Performed By: #### 5 0103 #### [facility] [address] [place] [address], [facility] Eosinophils (Bld) [#/Vol] 0.0 10*3/uL Normal 0.0-0.5 The [facility] Comment on above: Order Comment: No: D o not add to previous draw Performed By: #### 5 0103 #### [facility] [address] [place] [address], [facility] Eosinophils/100 WBC (Bld) 0.2 % Normal 0.0-6.0 The [facility] Comment on above: Order Comment: No: D o not add to previous draw Performed By: #### 5 0103 #### [facility] [address] Erythrocyte distribution width (RBC) [Ratio] 15.7 % High 11.5-15.0 The [facility] Comment on above: Order Comment: No: D o not add to previous draw Performed By: #### 5 0103 #### [facility] [address] [facility] [place] [address], [facility] Hematocrit (Bld) [Volume fraction] 21.2 % Low 39.0-50.0 The [facility] Comment on above: Order Comment: No: D o not add to previous draw Performed By: #### 5 0103 #### [facility] [address] [place] [address], [facility] Hemoglobin (Bld) [Mass/Vol] 7.3 g/dL Low 13.0-17.0 The [facility] Comment on above: Order Comment: No: D o not add to previous draw Performed By: #### 5 0103 #### [facility] [address] [place] [address], [facility] IMMATURE GRANS 0.2 % Normal 0.0-1.0 The [facility] Comment on above: Order Comment: No: D o not add to previous draw Performed By: #### 5 0103 #### [facility] [address] [place] [address], [facility] Lymphocytes (Bld) [#/Vol] 0.7 10*3/uL Low 1.2-4.0 The [facility] Comment on above: Order Comment: No: D o not add to previous draw Performed By: #### 5 0103 #### [facility] [address] [facility] [place] [address], [facility] Lymphocytes/100 WBC (Bld) 13.2 % Low 20.0-45.0 The [facility] Comment on above: Order Comment: No: D o not add to previous draw Performed By: #### 5 0103 #### [facility] [address] [facility] [place] [address], [facility] MCH (RBC) [Entitic mass] 31.7 pg Normal 27.0-33.0 The [facility] Comment on above: Order Comment: No: D o not add to previous draw Performed By: #### 5 0103 #### [facility] [address] MCHC (RBC) [Mass/Vol] 34.4 g/dL Normal 32.0-35.0 The [facility] Comment on above: Order Comment: No: D o not add to previous draw Performed By: #### 5 0103 #### [facility] [address] [place] [address], [facility] MCV (RBC) [Entitic vol] 92.2 fL Normal 82.0-98.0 The [facility] Comment on above: Order Comment: No: D o not add to previous draw Performed By: #### 5 0103 #### [facility] [address] [place] [address], [facility] Monocytes (Bld) [#/Vol] 0.2 10*3/uL Normal 0.1-1.0 The [facility] Comment on above: Order Comment: No: D o not add to previous draw Performed By: #### 5 0103 #### [facility] [address] [place] [address], [facility] MONOS 4.3 % Low 5.0-12.0 The [facility] Comment on above: Order Comment: No: D o not add to previous draw Performed By: #### 5 0103 #### [facility] [address] [place] [address], [facility] Neutrophils/100 WBC (Bld) 81.9 % High 40.0-72.0 The [facility] Comment on above: Order Comment: No: D o not add to previous draw Performed By: #### 5 0103 #### [facility] [address] [place] [address], [facility] Nucleated RBC/100 WBC (Bld) [Ratio] 0 % Normal 0-0 The [facility] Comment on above: Order Comment: No: D o not add to previous draw Performed By: #### 5 0103 #### [facility] [address] [place] [address], [place] PLAT CNT 167 10*3/uL Normal 150-400 The [facility] Comment on above: Order Comment: No: D o not add to previous draw Performed By: #### 5 0103 #### [facility] [address] [place] [address], [facility] RBC (Bld) [#/Vol] 2.30 10*6/uL Low 4.20-5.70 The [facility] Comment on above: Order Comment: No: D o not add to previous draw Performed By: #### 5 0103 #### [facility] [address] [place] [address], [place] WBC (Bld) [#/Vol] 5.32 10*3/uL Normal 4.00-10.60 The [facility] Comment on above: Order Comment: No: D o not add to previous draw Performed By: #### 5 0103 #### [facility] [address] [place] [address], [facility] CREATININE URINE RANDOMon Creatinine [Mass/Vol] 56.0 mg/dL Normal The [facility] Comment on above: Order Comment: No: D o not add to previous draw Result Comment: Ther e are no established reference values for random urine specimens Performed By: #### 5 6101 #### [facility] [address] [place] [address], [facility] Coding Summary.on 09-11-2020 Coding Summary. CODING DATE: 020 FINAL [facility] STATUS: Short-Term Hosp as IP PAYOR: Medicare [...] Revised Date Saved: 09/11/2020 01:43 pm Normal [facility] Consent for Blood Transfusio non 09-11-2020 Consent for Blood Transfusion [id number]#[id number] CD:127 Normal [facility] Consultationon 09-11-2020 Consultation MR#: [id number] [facility] Pt. Name: Chano Gomez Date of Service: 09/11/2020 Room #: 4AB [id number] Birthdate: 1945 Referring Physician: CONSULTATION ATTENDING PHYSICIAN: [...] Travis MD Date Trans: 09/11/2020 09:42 A/mmo [id number] Normal The [facility] ED Traumaon 09-11-2020 ED Trauma [id number]#[id number] CD:127 Normal [facility] EMS Documentationon 09-11-20 20 EMS Documentation [id number] CD:127 Normal [facility] FERRITINon 09-11-2020 Ferritin [Mass/Vol] 285 ng/mL Normal 24-336 The [facility] Comment on above: Performed By: #### 8 4046, 60668, 49887, 11837, 75100 ####[facility] [place] [address], [facility] FOLATE SERUMon 09-11-2020 Folate [Mass/Vol] 14.64 ng/mL Normal 6.60-1000. 0 0 The [facility] Comment on above: Result Comment: Norm al range reflects World Health Organization International Standard /178 Performed By: #### 8 4046, 56005, 81283, 73473, 92582 ####[facility] [facility] [place] [address], [facility] HAPTOGLOBINon 09-11-2020 HAPTOGLOBIN 30 mg/dL Normal 26-164 The [facility] Comment on above: Order Comment: Yes: Add to Previous draw if able Performed By: #### 3 2379, 00825 #### [facility] [address] [place] [address], [facility] HEMOGLOBINon 09-11-2020 Hemoglobin (Bld) [Mass/Vol] 7.7 g/dL Low 13.0-17.0 The [facility] Comment on above: Order Comment: No: D o not add to previous draw Performed By: #### 1 0008 #### [facility] [address] [place] [address], [place] Hemoglobin (Bld) [Mass/Vol] 7.0 g/dL Low 13.0-17.0 The [facility] Comment on above: Order Comment: The A ptima SARS-CoV-2 assay is a nucleic acid amplification test intended for the qualitative detection of RNA from SARS-CoV-2 isolated and purified from nasopharyngeal (FILM SOUND ENGINEER),oropharyngeal (OP), nasal swab, sputum, and bronchoalveolar lavage (BAL) specimens from patients with signs and symptoms of infection who are suspected of COVID-19. Results are for the identification of SARS-CoV-2 RNA. The SARS-CoV-2 RNA is generally detectable during the acute phase of infection. The Aptima SARS-CoV-2 Assay on the Tap2print and Tap2print Fusion system is intended for use by laboratory personnel specifically instructed and trained in the operation of the Epes and Tap2print Fusion system. The Aptima SARS-CoV-2 assay is [...] information. Performed By: #### 3 1792 #### [facility] [address] Hemoglobin (Bld) [Mass/Vol] 7.4 g/dL Low 13.0-17.0 The [facility] Comment on above: Order Comment: No: D o not add to previous draw Performed By: #### 3 0478 #### [facility] [address] Hemoglobin (Bld) [Mass/Vol] 8.0 g/dL Low 13.0-17.0 The [facility] Comment on above: Order Comment: No: D o not add to previous draw Performed By: #### 3 1509, 07140 #### [facility] [address] LDH BLOODon 09-11-2020 LDH 217 Units/L Normal 140-271 The [facility] Comment on above: Order Comment: Yes: Add to Previous draw if able Performed By: #### 8 4046, 72434, 06212, 20662, 98235 ####[facility] [facility] [place] [address], [facility] MAGNESIUM BLOODon 09-11-2020 Magnesium [Mass/Vol] 2.1 mg/dL Normal 1.9-2.7 The [facility] Comment on above: Order Comment: [place] nephrosis, please assess for hydronephrosis resolution Performed By: #### 4 1000, 42080, 47773 ####[facility] [facility] [place] [address], [facility] PHOSPHORUS BLOODon 0 Phosphate [Mass/Vol] 6.4 mg/dL High 2.5-5.0 The [facility] Comment on above: Order Comment: No: D o not add to previous draw Performed By: #### 4 1000, 52178, 69151 ####[facility] [facility] [place] [address], [facility] Path. Reviewon 09-11-2020 Path Review Anemia with no incre ase of reticulocytes. [facility] Comment on above: Order Comment: Order Added by Discern Expert. Performed By: #### 2 927373, 28736491, 0865802, 2660646, 8509457, 6533154, 9207753, 8766286, 1537265, 65387457, 0660079, 30025917, 41252680, 5220473 ####[facility] [address] [place] [address] RETICULOCYTE PANELon 020 ABSOLUTE RETICULOCYTE 0.0425 10*6/uL Normal 0.02 50-0.10 00 The [facility] Comment on above: Performed By: #### 3 1509, 96092 #### [facility] [address] [place] [address], [facility] IMMATURE RETICULOCYTE FRACTION 9.3 % Normal 2.0-16.0 The [facility] Comment on above: Performed By: #### 3 1509, 02689 #### [facility] [address] [place] [address], [facility] RETIC COUNT 1.64 % Normal 0.50-1.80 The [facility] Comment on above: Performed By: #### 3 1509, 24715 #### [facility] [address] [place] [address], [facility] RETICULOCYTE HEMOGLOBIN 37.3 pg High 28.0-36.0 The [facility] Comment on above: Performed By: #### 3 1509, 63828 #### [facility] [address] SODIUM URINE RANDOMon 2019 Sodium (U) [Moles/Vol] 66 mmol/L Normal Th e [facility] Comment on above: Order Comment: No: D o not add to previous draw Result Comment: Ther e are no established reference values for random urine specimens Performed By: #### 5 0608 #### [facility] [address] [facility] [place] [address], [facility] T PROT UR Kayden 09-11-2020 Protein [Mass/Vol] 400.0 mg/dL Normal The [facility] Comment on above: Order Comment: No: D o not add to previous draw Result Comment: Ther e are no established reference values for random urine specimens Performed By: #### 5 6101 #### [facility] [address] [facility] [address] TIBC- INCLUDES IRONon 2019 FE SATURATION 20 % Normal 20-50 The [facility] Comment on above: Performed By: #### 8 4046, 99254, 97689, 44043, 28568 ####[facility].[address] Iron [Mass/Vol] 52 ug/dL Normal 50-212 The [facility] Comment on above: Performed By: #### 8 4046, 55319, 49670, 78189, 66220 ####[facility] [place] [address], [facility] TIBC 258 mcg/dL Normal 250-450 The [facility] Comment on above: Performed By: #### 8 4046, 34074, 32619, 00470, 79010 ####[facility] [place] [address], [facility] UIBC 206 mcg/dL Normal 155-355 The [facility] Comment on above: Performed By: #### 8 4046, 92569, 84330, 62405, 87786 ####[facility]3000 [facility].[address] US RENALon 09-11-2020 RENAL [facility] Department of Radiology [address] [id number] ===== Patient Name: CHANO GOMEZ : 1945 Sex: M Age: Race: White Pt. Location: [address] [place] [address] Patient Status: I Ordered Date: 09/11/2020 2:00:00 [...] bladder. Electronically signed: Harinder Mancilla. Transcribed by: [email or web address], User Resident: Electronically Signed by: HARINDER MANCILLA @ 09/11/2020 12:14 PM Normal The [facility] Comment on above: Order Comment: [place] nephrosis, please assess for hydronephrosis resolution VITAMIN B12on 09-11-2020 Cobalamin (Vitamin B12) [Mass/Vol] 356 pg/mL Normal 180-914 The [facility] Comment on above: Result Comment: REFE RENCE RANGES: 180-914 pg/mL Normal 145-179 pg/mL Indeterminate <145 pg/mL Deficient Performed By: #### 8 4046, 12302, 30035, 52067, 30039 ####[place] [address] [address] *SARS-CoV-2 COVID-19on 09-10 [id number] Not Detected Normal Not Detected The [facility] Comment on above: Order Comment: The A ptima SARS-CoV-2 assay is a nucleic acid amplification testintended for the qualitative detection of RNA from SARS-CoV-2 isolatedand purified from nasopharyngeal (FILM SOUND ENGINEER),oropharyngeal (OP), nasal swab,sputum, and bronchoalveolar lavage (BAL) specimens from patients withsigns and symptoms of infection who are suspected of COVID-19.Results are for the identification of SARS-CoV-2 RNA. The SARS-CoV-2 RNAis generally detectable during the acute phase of infection.The Aptima SARS-CoV-2 Assay on the Epes and Epes Fusion system isintended for use by laboratory personnel specifically instructed andtrained in the operation of the Epes and Epes Fusion system. TheAptima SARS-CoV-2 assay is only [...] information. Performed By: #### 1 0008 #### [facility] [address] [place] [address], [facility] ABO/Rhon 09-10-2020 ABO/Rh Positive [facility] Comment on above: Performed By: #### 1 [id number], 69989855, 7856969, 48067262 #### [facility] [address] [place] [address] ABO/Rh History Checkon 09-10 ABO/Rh History Check Type verified by se cond s Normal [facility] Comment on above: Performed By: #### 1 0425066, 39138396, 7167386, 58360728 ####[facility] [address] [place] [address] ABO/Rh Retypeon 09-10-2020 ABO/Rh Retype Interp Positive [facility] Comment on above: Performed By: #### 1 [id number] ####[facility] [address] [place] [address] ABSCon 09-10-2020 ABSC Gel Interp Negative Normal [facility] Comment on above: Performed By: #### 1 3034991, 27725900, 0049872, 04001891 ####[facility] [address] [place] [address] APTTon 09-10-2020 aPTT Coag (Bld) [Time] 27.3 s Normal 25.0-35.0 Th e [facility] Comment on above: Result Comment: ALL RESULTS [...] THIS PURPOSE. Performed By: #### 3 1509, 86037 #### [facility] [address] [place] [address], [facility] Auto Diffon 09-10-2020 Basophils/100 WBC (Bld) 0.8 % Normal 0.0-2.0 [facility] Comment on above: Order Comment: Order Added by Discern Expert. Performed By: #### 2 915895, 49446374, 4305282, 5238244, 2494354, 4711881, 9553201, 7997512, 1626630, 37566272, 2828266, 99214258, 61687686, 3931695 ####[facility] [address] [place] [address] Basophils/Leukocytes Auto (Bld) [Pure # fraction] 0.1 E9/L Normal 0.0-0.2 [facility] Comment on above: Order Comment: Order Added by Discern Expert. Performed By: #### 2 486823, 32116912, 8058386, 0575352, 0920903, 7894447, 9415430, 0253834, 2791523, 63802128, 4782465, 30112149, 66197981, 0796481 ####[facility] [address] [place] [address] Eosinophils/100 WBC (Bld) 1.7 % Normal 0.0-8.0 [facility] Comment on above: Order Comment: Order Added by Discern Expert. Performed By: #### 2 173892, 07009514, 7367064, 1916832, 4267894, 7352387, 4829976, 8918939, 5532688, 92518780, 6395483, 53079280, 29615060, 4043677 ####[facility] [address] [place] [address] Eosinophils/Leukocytes Auto (Bld) [Pure # fraction] 0.1 E9/L Normal 0.0-0.5 [facility] Comment on above: Order Comment: Order Added by Discern Expert. Performed By: #### 2 568685, 38492037, 4000870, 5704219, 0675549, 5389844, 9805687, 9909402, 2739937, 05083212, 1973849, 81275787, 49302986, 6443054 ####[place] [address] [place] [address] Lymphocytes/100 WBC (Bld) 34.8 % Normal 14.0-50.0 [facility] Comment on above: Order Comment: Order Added by Discern Expert. Performed By: #### 2 810619, 43695346, 7463632, 5706978, 2846766, 1339305, 9049689, 9971168, 5628910, 25648934, 7371075, 22827756, 84315382, 6575240 ####[place] [address] [place] [address] Lymphocytes/Leukocytes Auto (Bld) [Pure # fraction] 2.2 E9/L Normal 1.0-4.0 [facility] Comment on above: Order Comment: Order Added by Discern Expert. Performed By: #### 2 307152, 76878453, 7391204, 1757349, 5533657, 8673553, 5536248, 2338487, 1195236, 96915275, 7767769, 34211087, 45039870, 9249460 ####[facility] [address] [place] [address] Monocytes/100 WBC (Bld) 4.9 % Normal 4.0-14.0 [facility] Comment on above: Order Comment: Order Added by Discern Expert. Performed By: #### 2 582889, 16040646, 3120915, 9093185, 3229863, 7985870, 9318843, 2602211, 2910302, 50450250, 9722724, 70660756, 88791353, 8269711 ####[facility] [address] [place] [address] Monocytes/Leukocytes Auto (Bld) [Pure # fraction] 0.3 E9/L Normal 0.2-1.0 [facility] Comment on above: Order Comment: Order Added by Discern Expert. Performed By: #### 2 632843, 89755201, 9255340, 0337364, 2937632, 2684495, 6635418, 9323664, 1538474, 96560470, 9311628, 99537789, 07505155, 8673565 ####[facility] [address] [place] [address] Neutrophils/100 WBC (Bld) 57.8 % Normal 36.0-75.0 [facility] Comment on above: Order Comment: Order Added by Discern Expert. Performed By: #### 2 825323, 68634582, 9691456, 7181916, 3218264, 0074686, 7234546, 1413084, 1810854, 32569737, 1249334, 67080367, 83835321, 9304053 ####[facility] [address] [place] [address] Neutrophils/Leukocytes Auto (Bld) [Pure # fraction] 3.6 E9/L Normal 2.0-7.5 [facility] Comment on above: Order Comment: Order Added by Discern Expert. Performed By: #### 2 456339, 77074777, 4806855, 9999714, 3627971, 3985275, 6623145, 8484494, 5776070, 29949744, 1222236, 61309632, 82686155, 2151708 ####[facility] [address] [place] [address] BMPon 09-10-2020 Urea nitrogen/Creatinine [Mass ratio] #syntax# 10-20 [facility] Comment on above: Performed By: #### 2 958751, 91975304, 6740863, 2091622, 6927684, 6819656, 7618349, 4778104, 9627238, 82061378, 8502654, 57782214, 16024359, 4619207 ####[facility] [address] [place] [address] Calcium [Mass/Vol] 9.0 mg/dL Normal 8.9-11.1 [facility] Comment on above: Performed By: #### 2 115782, 06887037, 1862866, 1967293, 3757563, 9856708, 3784014, 3769725, 0159908, 54580393, 9437763, 37401431, 66674170, 7144910 ####[facility] [address] [place] [address] Glucose [Mass/Vol] 167 mg/dL Normal 55-199 [facility] Comment on above: Result Comment: If t his glucose result represents a fasting glucose, interpretation should refer to the following reference range: 55-99 mg/dL Performed By: #### 2 641589, 96238373, 8655574, 3566533, 0837509, 7649254, 2368276, 5594002, 4960518, 85459119, 8473478, 24294233, 17262025, 9017634 ####[facility] [address] [place] [address] Chloride [Moles/Vol] 104 mmol/L Normal 101-111 [facility] Comment on above: Performed By: #### 2 024454, 42742920, 7545231, 9361027, 2024472, 1911726, 5517908, 9517083, 4737482, 68150123, 6150941, 76876518, 87593731, 7421223 ####[facility] [address] [place] [address] Potassium [Moles/Vol] 4.1 mmol/L Normal 3.5-5.3 [facility] Comment on above: Performed By: #### 2 919280, 10769875, 0530976, 0584396, 6627012, 5802692, 2705513, 7578807, 1666408, 20386058, 4535780, 62619739, 93382868, 2823317 ####[facility] [address] [place] [address] Sodium [Moles/Vol] 134 mmol/L Low 135-145 [facility] Comment on above: Performed By: #### 2 613534, 76960821, 8544265, 2947160, 6502308, 8290667, 1789253, 1441812, 5828194, 61689279, 6789403, 60676248, 10016024, 4436315 ####[facility] [address] [place] [address] Anion gap [Moles/Vol] 21 mmol/L High 6-16 [facility] Comment on above: Performed By: #### 2 846669, 52623982, 9541042, 0060046, 4165075, 9895562, 0819074, 8677978, 0166739, 49377837, 1328209, 66827991, 95489914, 2264463 ####[facility] [address] [place] [address] CO2 [Moles/Vol] 13 mmol/L Abnormal 21-31 [facility] Comment on above: Result Comment: Crit ical Result verified by repeat analysis\Critical Result S_CO2:13.0) Called to JONATHAN CASE AT by VICENTA DOWNS and read back for confirmation at 09/10/2020 10:40:4 Performed By: #### 2 797482, 44192187, 1628247, 9926529, 2619934, 0657384, 3018163, 1347606, 5024334, 99350335, 0246367, 15412298, 16597268, 5892874 ####[facility] [address] [place] [address] Creatinine [Mass/Vol] 11.2 mg/dL Abnormal 0.5-1.3 [facility] Comment on above: Result Comment: Crit ical Result verified by repeat analysis\Critical Result S_CREA:11.20 Called to JONATHAN CASE AT by VICENTA DOWNS And Read Back For Confirmation at: 09/10/2020 10:40:41 Performed By: #### 2 663360, 18592961, 1654648, 5747494, 5085655, 6612824, 6218238, 5385690, 9730960, 50814632, 6009542, 53126810, 69053087, 4745610 ####[facility] [address] [place] [address] Blood Bank ID#on 09-10-2020 BBID# [id number] [facility] Comment on above: Performed By: #### 1 9410965, 81065514, 4928805, 67705883 ####[facility] [address] [place] [address] CBC W/DIFFon 09-10-2020 ABS BASOPHILS 0.0 10*3/uL Normal 0.0-0.2 [facility] Comment on above: Performed By: #### 1 0008 #### [facility] [address] ABS IMM GRANS 0.0 10*3/uL Normal 0.0-0.2 [facility] Comment on above: Performed By: #### 1 0008 #### [facility] [address] ABS NEUTROPHILS 5.3 10*3/uL Normal 1.6-7.6 [facility] Comment on above: Performed By: #### 1 0008 #### [facility] [address] [place] [address], [facility] Basophils/100 WBC (Bld) 0.2 % Normal 0.0-1.0 [facility] Comment on above: Performed By: #### 1 0008 #### [facility] [address] [place], [place] [address] Eosinophils (Bld) [#/Vol] 0.0 10*3/uL Normal 0.0-0.5 [facility] Comment on above: Performed By: #### 1 0008 #### [facility] [address] [place] [address], [facility] Eosinophils/100 WBC (Bld) 0.0 % Normal 0.0-6.0 [facility] Comment on above: Performed By: #### 1 0008 #### [facility] [address] Erythrocyte distribution width (RBC) [Ratio] 15.0 % Normal 11.5-15.0 [facility] Comment on above: Performed By: #### 1 0008 #### [facility] [address] Hematocrit (Bld) [Volume fraction] 29.4 % Low 39.0-50.0 [facility] Comment on above: Performed By: #### 1 0008 #### [facility] [address] Hemoglobin (Bld) [Mass/Vol] 10.0 g/dL Low 13.0-17.0 [facility] Comment on above: Performed By: #### 1 0008 #### [facility] [address] IMMATURE GRANS 0.3 % Normal 0.0-1.0 [facility] Comment on above: Performed By: #### 1 0008 #### [facility] [address] [place] [address], [facility] Lymphocytes (Bld) [#/Vol] 0.5 10*3/uL Low 1.2-4.0 [facility] Comment on above: Performed By: #### 1 0008 #### [facility] [address] [place] [address], [facility] Lymphocytes/100 WBC (Bld) 8.6 % Low 20.0-45.0 The [facility] Comment on above: Performed By: #### 1 0008 #### [facility] [address] [place] [address], [facility] MCH (RBC) [Entitic mass] 31.5 pg Normal 27.0-33.0 [facility] Comment on above: Performed By: #### 1 0008 #### [facility] [address] [place] [address], [facility] MCHC (RBC) [Mass/Vol] 34.0 g/dL Normal 32.0-35.0 The [facility] Comment on above: Performed By: #### 1 0008 #### [facility] [address] [place] [address], [facility] MCV (RBC) [Entitic vol] 92.7 fL Normal 82.0-98.0 The [facility] Comment on above: Performed By: #### 1 0008 #### [facility] [address] [place] [address], [facility] Monocytes (Bld) [#/Vol] 0.3 10*3/uL Normal 0.1-1.0 The [facility] Comment on above: Performed By: #### 1 0008 #### [facility] [address] [place] [address], [facility] MONOS 4.5 % Low 5.0-12.0 [facility] Comment on above: Performed By: #### 1 0008 #### [facility] [address] [place] [address], [facility] Neutrophils/100 WBC (Bld) 86.4 % High 40.0-72.0 [facility] Comment on above: Performed By: #### 1 0008 #### [facility] [address] [facility] [place] [address], [facility] Nucleated RBC/100 WBC (Bld) [Ratio] 0 % Normal 0-0 [facility] Comment on above: Performed By: #### 1 0008 #### [facility] [address] [place] [address], [facility] PLAT CNT 155 10*3/uL Normal 150-400 [facility] Comment on above: Performed By: #### 1 0008 #### [facility] [address] [place] [address], [facility] RBC (Bld) [#/Vol] 3.17 10*6/uL Low 4.20-5.70 [facility] Comment on above: Performed By: #### 1 0008 #### [facility] [address] [place] [address], [facility] WBC (Bld) [#/Vol] 6.18 10*3/uL Normal 4.00-10.60 [facility] Comment on above: Performed By: #### 1 0008 #### [facility] [address] [place] [address], [facility] CBC w/ Auto Diffon 0 Erythrocyte distribution width (RBC) [Ratio] 14.7 % High 10.9-14.2 [facility] Comment on above: Performed By: #### 2 430091, 70210499, 7099624, 3861214, 1488929, 9287245, 7439494, 0908849, 5855200, 59919168, 7049949, 08536686, 02833684, 7494155 ####[facility] [address] [place] [address] Hematocrit (Bld) [Volume fraction] 17.1 % Low 37.7-49.0 [facility] Comment on above: Performed By: #### 2 243994, 96209272, 4287619, 5690301, 0457143, 8541462, 6950692, 9946343, 0570540, 46715269, 5325447, 20696683, 73520513, 4081961 ####[facility] [address] [place] [address] Hemoglobin (Bld) [Mass/Vol] 5.8 g/dL Abnormal 13.5-17.5 [facility] Comment on above: Result Comment: Resu lts Verified By Repeat Analysis. Results Called To Marta Cam in ED By INGA And Read Back For Confirmation On 09/10/2020 10:39:49 EST. Performed By: #### 2 339074, 26236363, 9257464, 8918731, 3191249, 5098018, 3518102, 8152426, 8632270, 50400443, 8343363, 00135272, 29654010, 2037910 ####[facility] [address] [place] [address] MCH (RBC) [Entitic mass] 32.6 pg Normal 27.0-34.0 [facility] Comment on above: Performed By: #### 2 056841, 75856116, 6456012, 0338975, 7726138, 7560177, 3412339, 3996177, 5593990, 45324423, 7361690, 09957843, 69840901, 5315947 ####[facility] [address] [place] [address] MCHC (RBC) [Mass/Vol] 33.7 g/dL Normal 31.4-36.0 [facility] Comment on above: Performed By: #### 2 422353, 08488265, 2608822, 0875866, 4741509, 7207084, 8608890, 3667755, 2033558, 91414729, 4855455, 88094049, 08706133, 0978164 ####[facility] [address] [place] [address] MCV (RBC) [Entitic vol] 96.8 fL Normal 80.0-100.0 [facility] Comment on above: Performed By: #### 2 938875, 46094392, 3918487, 2500133, 7513346, 0195161, 9390545, 3841157, 1897340, 72612519, 0571645, 71309134, 88037758, 2941458 ####[facility] [address] [place] [address] Platelet mean volume (Bld) [Entitic vol] 10.3 fL Normal 6.4-10.8 [facility] Comment on above: Performed By: #### 2 213658, 94167530, 9501029, 8122787, 3710126, 1873450, 4939450, 5738325, 0729605, 96198746, 2118826, 03502285, 96222415, 4674458 ####[facility] [address] [place] [address] Platelets (Bld) [#/Vol] 202.0 E9/L Normal 150.0-500.0 [facility] Comment on above: Performed By: #### 2 083219, 95795896, 0717314, 7326474, 1892655, 9461946, 5969788, 9330511, 1390411, 24294525, 1686256, 66964505, 39510121, 5306535 ####[facility] [address] [place] [address] RBC (Bld) [#/Vol] 1.8 E12/L Low 4.3-5.9 [facility] Comment on above: Performed By: #### 2 086818, 26352020, 3929835, 7513841, 5212802, 2155383, 9005044, 0541257, 0839104, 88053073, 0793057, 04491798, 15757833, 5197872 ####[facility] [address] [place] [address] WBC corrected for nucl RBC Auto (Bld) [#/Vol] 6.2 E9/L Normal 4.0-11.0 [facility] Comment on above: Performed By: #### 2 863845, 49022929, 7711314, 1564306, 0768693, 6839547, 3765610, 1755436, 3344311, 59330080, 2738586, 12762081, 14769510, 2930800 ####[facility] [address] [place] [address] COMP METABOLIC PANELon 09-10 Albumin [Mass/Vol] 4.0 g/dL Normal 3.5-5.7 The [facility] Comment on above: Performed By: #### 3 1509, 65504 #### [facility] [address] [place] [address], [facility] ALKALINE PHOSPH 25 IU/L Low 34-104 [facility] Comment on above: Performed By: #### 3 1509, 26508 #### [facility] [address] [place] [address], [place] ALT [Catalytic activity/Vol] 9 U/L Normal 7-52 [facility] Comment on above: Performed By: #### 3 1509, 24753 #### [facility] [address] [place] [address], [place] AST [Catalytic activity/Vol] 9 U/L Low 13-39 [facility] Comment on above: Performed By: #### 3 1509, 09977 #### [facility] [address] [place] [address], [place] Bilirubin [Mass/Vol] 0.5 mg/dL Normal 0.3-1.0 [facility] Comment on above: Performed By: #### 3 1509, 24334 #### [facility] [address] [place] [address], [place] Calcium [Mass/Vol] 9.0 mg/dL Normal 8.6-10.3 [facility] Comment on above: Performed By: #### 3 1509, 55810 #### [facility] [address] [place] [address], [place] Chloride [Moles/Vol] 102 mmol/L Normal 98-107 [facility] Comment on above: Performed By: #### 3 1509, 09542 #### [facility] [address] [place] [address], [place] CO2 [Moles/Vol] 18 mmol/L Low 21-31 [facility] Comment on above: Performed By: #### 3 1509, 56512 #### [facility] [address] [place] [address], [place] Creatinine [Mass/Vol] 9.80 mg/dL Critically high 0.70-1.30 [facility] Comment on above: Performed By: #### 3 1509, 61114 #### [facility] [address] [place] [address], [place] GFR/1.73 sq M predicted among blacks MDRD (S/P/Bld) [Vol rate/Area] 6 ml/min/1.73sq m Abnormal >60 [facility] Comment on above: Result Comment: Calc ulation may not be valid for patients over 70 years Performed By: #### 3 1509, 98919 #### [facility] [address] [place] [address], [place] GFR/1.73 sq M predicted among non-blacks MDRD (S/P/Bld) [Vol rate/Area] 5 ml/min/1.73sq m Abnormal >60 [facility] Comment on above: Result Comment: Calc ulation may not be valid for patients over 70 years Performed By: #### 3 1509, 18362 #### [facility] [address] [place] [address], [place] Glucose [Mass/Vol] 143 mg/dL High 70-100 The [facility] Comment on above: Performed By: #### 3 1509, 76500 #### [facility] [address] [place] [address], [place] Potassium [Moles/Vol] 4.3 mmol/L Normal 3.5-5.1 [facility] Comment on above: Performed By: #### 3 1509, 86092 #### [facility] [address] [place] [address], [facility] Protein [Mass/Vol] 7.1 g/dL Normal 6.0-8.3 The [facility] Comment on above: Performed By: #### 3 1509, 71425 #### [facility] [address] [place] [address], [facility] Sodium [Moles/Vol] 135 mmol/L Low 136-145 The [facility] Comment on above: Performed By: #### 3 1509, 39807 #### [facility] [address] [place] [address], [facility] Urea nitrogen [Mass/Vol] 107 mg/dL High 7-25 The [facility] Comment on above: Performed By: #### 3 1509, 44196 #### [facility] [address] CPK-MB PROFILEon 09-10-2020 CK [Catalytic activity/Vol] 104 U/L Normal 30-223 The [facility] Comment on above: Order Comment: No: D o not add to previous draw Performed By: #### 3 1509, 42911 #### [facility] [address] [place] [address], [facility] CK.MB [Mass/Vol] 5.7 ng/mL Critically high 0.0-1.9 The [facility] Comment on above: Order Comment: No: D o not add to previous draw Performed By: #### 3 1509, 56509 #### [facility] [address] [place] [address], [place] CK.MB [Mass/Vol] 5.9 ng/mL High 0.0-5.0 The [facility] Comment on above: Order Comment: No: D o not add to previous draw Result Comment: IF T OTAL CK <200 U/L AND: 1. CKMB IS 5-10 NG/ML----BORDERLINE 2. CKMB IS >10 NG/ML----INDICATIVE OF AR OR IF TOTAL CK >200 U/L AND CKMB INDEX >1.9----INDICATIVE OF AR Performed By: #### 3 1509 22673 #### [facility] [place] [address], [facility] CT Abdomen/Pelvis w/o Contra ston 09-10-2020 CT [...] None Contrast amount in ml's: [address] [facility] [address] Chest w/o Contraston CT Chest w/o [...] M.D. Transcribed by: EUGENIE Technologist: GIBRAN Normal [facility] CT Head or Brain w/o [facility] 09-10-2020 CT Head or Brain w/o Contrast [...] M.D. Transcribed by: EUGENIE Technologist: GIBRAN Normal [facility] CT Maxillofacial w/o [facility] ton 09-10-2020 CT Maxillofacial w/o Contrast Exam [...] M.D. Transcribed by: EUGENIE Technologist: GIBRAN Pretty [facility] CT Spine Cervical w/o [facility] 09-10-2020 [...] Samayoa M.D. Transcribed by: EUGENIE Technologist: GIBRAN [facility] Consent for Treatmenton Consent for Treatment [id number] CD:127 [facility] Consultation Noteon 09-10-20 20 Consultation Note Patient: [...] are for now. 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 Please feel free to call us with any questions. Normal [facility] Comment on above: Result Comment: Elec tronically Signed By: Zari GONZALEZ, Jigar\.br\Date and Time Signed: 09/10/20 14:44 EST ED Clinical Summaryon 2019 ED Clinical Summary (Inserted Image. Ailyn ble to display) [place] [id number] ED Clinical Summary Person Information Name: CHANO GOMEZ/Alber_Tristin Age: 75 Years : 1945 Sex: Male Language: [place] PCP: SOHAM FERNANDO DO Marital Status: Visit [...] 16:11:24 09/10/2020 16:11:24 09/10/2020 16:11:24 ADDRESS: [address] [facility] [address] PHYS DOC NOTES: MEDICAL INFORMATION: Prescriptions Given: PATIENT EDUCATION INFORMATION: Instructions: Follow up: DIAGNOSIS: 1:Head trauma; 2:Renal failure; 3:Anemia Normal [facility] ED Note-Physicianon 09-10-20 ED Note-Physician Basic Information [...] are within normal range. Talk to the manager ship on-call, she advised to start the patient [...] tried to have the patient transferred to [facility], after unsuccessful attempts we tried [facility] [place], they did not have a bed ready and the family wanted him to be transferred sooner. I talked to Dr. Adames at the emergency department at [facility] and he kindly accepted the patient. [...] Discharge Condition Patient will be transferred to [facility] emergency department under Dr. Adames Discharge [...] 10:00:00) Lymph Auto: 34.8 % (09/10/20 10:00:) [place] Auto: 4.9 % (09/10/20 10:00:00) Eos Auto: 1.7 % (09/10/20 10:00:00) Basophil Auto: 0.8 % (09/10/20 10:00:00) Neutro Absolute: 3.6 E9/L (09/10/20 10:00:00) Lymph Absolute: 2.2 E9/L (09/10/20 10:00:00) [place] Absolute: 0.3 E9/L (09/10/20 10:00:00) Eos Absolute: [...] By: Yair Dominguez MD 09/10/2020 10:58:49 Normal [facility] Comment on above: Result Comment: Elec tronically Signed By: Yair Dominguez MD\.br\Date and Time Signed: 09/10/20 15:02 EST ED Patient Education Noteon 09-10-2020 ED Patient Education Note Normal [facility] ED Patient Summaryon 020 ED Patient Summary (Inserted Image. Ailyn ble to display) [place] [address] Patient Discharge Instructions Person Information Name: CHANO GOMEZ Age: 75 Years Arrival Date: 09/10/2020 09:50:41 Discharge Diagnosis: 1:Head trauma; 2:Renal failure; 3:Anemia Primary Care Physician: SOHAM FERNANDO DO Provider Information Primary Provider: Yair Dominguez MD Advanced Manager Mass:None The exam and treatment you received in the Emergency Department were for an urgent problem and are not intended as complete care. It is important that you follow up with a doctor, nurse practitioner, or physician?s assistant librarian for ongoing care. If your symptoms become [...] opioids can be used to help relieve fqohybiw-ij-btreol pain and are often prescribed following a [...] be struggling with addiction, tell your health animal caretaker and ask for guidance or call [facility]?S National Helpline at 3-833-979-KHUK. v Source: [place] Department of Health and Human Services/Center for Disease Control & Prevention [facility] Medications Given: Medication Dose Route sodium bicarbonate 1150.00 mL Initial Volume 100.00 mL/hr IV Left Lower Forearm Dextrose 5% in Water intravenous solution 1150.00 mL Initial Volume 100.00 mL/hr IV Left Lower Forearm bupivacaine 150.00 mg IntraDermal Medication Information: Comment: Pharmacy Information: Thank you for choosing [facility] Patient Education Materials: RICO Lundy LARRY , have received the following patient education materials/instructions and have verbalized understanding: Patient Education Materials: Follow-up Instructions: Patient Signature Date Clinician/Nurse Signature _ Date 09/10/2020 16:11:26 Normal [facility] Ethanolon 09-10-2020 Ethanol [Mass/Vol] mg/dL Normal <=7 [facility] Comment on above: Performed By: #### 2 645558, 95738771, 8498615, 5642761, 8973824, 2615357, 9119505, 7729098, 7381842, 41226031, 3523123, 11098436, 04888936, 4620128 ####[facility] [address] [place] [address] Hep Fun Panelon 09-10-2020 Albumin [Mass/Vol] 1.2 g/dL Normal 1.1-2.2 [facility] Comment on above: Performed By: #### 2 871857, 39110089, 6178708, 8153583, 1213713, 6741760, 8893286, 1417950, 9605613, 91594701, 7171733, 10596099, 71023951, 8968507 ####[facility] [address] [place] [address] Albumin [Mass/Vol] 3.9 g/dL Normal 3.3-5.0 [facility] Comment on above: Performed By: #### 2 844545, 39194422, 3780132, 9979366, 4242595, 1531251, 2720037, 4917462, 1407964, 17848337, 8633321, 13804146, 47250967, 6891493 ####[facility] [address] [place] [address] ALP [Catalytic activity/Vol] 25 Int._Unit/L Normal 21-98 [facility] Comment on above: Performed By: #### 2 078328, 30671352, 6266294, 7346817, 9565169, 3161547, 9751028, 5376409, 9272556, 28626187, 2019059, 77719540, 86800430, 3282092 ####[facility] [address] [place] [address] ALT No additional P-5'-P [Catalytic activity/Vol] 12 Int._Unit/L Normal 6-46 [facility] Comment on above: Performed By: #### 2 038941, 81599574, 2394980, 8144184, 9282966, 2750182, 0711259, 3829274, 2829793, 41717630, 4270047, 25778340, 98315037, 7980700 ####[place] [address] [place] [address] AST [Catalytic activity/Vol] 12 Int._Unit/L Normal 5-43 [facility] Comment on above: Performed By: #### 2 334842, 78340783, 5572043, 4858733, 7311320, 2138524, 9753433, 0429095, 0976139, 41139242, 9845464, 58349657, 61643437, 7594602 ####[address] [address] Bilirubin [Mass/Vol] 0.6 mg/dL Normal 0.0-1.1 [facility] Comment on above: Performed By: #### 2 014717, 61018898, 2286175, 0946931, 2875048, 9687028, 1140864, 8476132, 8418224, 57525784, 9909843, 34647269, 68304290, 2940477 ####[facility] [address] [place] [address] Bilirubin.direct [Mass/Vol] 0.5 mg/dL Normal 0.1-0.9 [facility] Comment on above: Performed By: #### 2 527536, 90842080, 3209323, 3615063, 7246118, 3325080, 7055159, 1186085, 8456442, 53936932, 8314325, 05202914, 47375209, 5781278 ####[facility] [address] [place] [address] Bilirubin.direct [Mass/Vol] 0.1 mg/dL Normal 0.1-0.4 [facility] Comment on above: Performed By: #### 2 692624, 97532735, 7754753, 3398221, 5371126, 9757128, 2113840, 7616874, 3535849, 01057186, 0945135, 01987029, 37097912, 8768561 ####[facility] [address] [place] [address] Globulin (S) [Mass/Vol] 3.3 g/dL Normal 1.4-4.0 [facility] Comment on above: Performed By: #### 2 212739, 96722631, 5316355, 8132237, 4071478, 8104596, 3540243, 3584804, 2018249, 82553677, 7289907, 89452366, 22136721, 7532739 ####[facility] [address] [place] [address] Protein [Mass/Vol] 7.2 g/dL Normal 6.0-7.8 [facility] Comment on above: Performed By: #### 2 109377, 87622261, 1013822, 9593234, 8908769, 7947435, 0341644, 1486766, 3579187, 54795560, 3945994, 75663817, 46054494, 9038660 ####[facility] [address] [place] [address] LACTATE BLOODon 09-10-2020 Lactate [Moles/Vol] 0.6 mmol/L Normal 0.5-2.2 [facility] Comment on above: Order Comment: No: D o not add to previous draw Performed By: #### 5 6101 #### [facility] [address] [facility] [address], [facility] Lactic Acidon 09-10-2020 Lactate [Mass/Vol] 1.3 mmol/L Normal 0.5-2.2 [facility] Comment on above: Performed By: #### 2 558693, 22228161, 8049260, 7131546, 4861265, 1253127, 5515372, 5586135, 9304897, 70603318, 6821378, 36214739, 69078075, 5753245 ####[facility] [address] [place] [address] Lipase Levelon 09-10-2020 Lipase [Catalytic activity/Vol] 80 unit/L High 13-58 [facility] Comment on above: Performed By: #### 2 503378, [id number], 7676666, 4820142, 5288028, 5459536, 1764411, 1179240, 1522120, 54284775, 6342023, 02039185, 87419674, 3353752 ####[facility] [address] [place] [address] MYOGLOBINon 09-10-2020 Myoglobin [Mass/Vol] 233 ng/mL Critically high 0-90 [facility] Comment on above: Result Comment: A DO UBLING OF VALUES FROM SERIAL BLOOD COLLECTIONS (1 - 2 HOURS APART) IS MORE INDICATIVE OF A M.I. THAN THE ABSOLUTE VALUE. Performed By: #### 3 1509, 09461 #### [facility] [address] [place] [address], [facility] Magnesiumon 09-10-2020 Magnesium [Mass/Vol] 2.5 mg/dL High 1.3-2.4 [facility] Comment on above: Performed By: #### 2 272546, 14385660, 4461385, 0605254, 7379146, 4221195, 2763250, 3835746, 3853606, 04008657, 8692984, 90780386, 20408230, 0386916 ####[facility] [address] [place] [address] Morphon 09-10-2020 Morphology Kayode (Bld) [Interp] Normal Normal [facility] Comment on above: Order Comment: Order Added by Discern Expert. Performed By: #### 2 458067, 18276063, 2182501, 9582919, 1264942, 7309077, 6877471, 8940201, 9494553, 62260521, 3353651, 40073337, 48616986, 2147674 ####[facility] [address] [place] [address] Myoglobinon 09-10-2020 Myoglobin [Mass/Vol] 251 ng/mL High <=69 Fish er [facility] Comment on above: Performed By: #### 2 443895, 14216934, 9172799, 8968207, 4772079, 7300833, 2879984, 7902133, 3328700, 78627671, 7079876, 35029134, 94801168, 8972355 ####[facility]oo [facility] [address] [place] [address] PROTHROMBIN TIMEon 0 INR Coag (PPP) [Relative time] 0.97 {INR} Normal 0.91-1.16 [facility] Comment on above: Result Comment: ACCC P [...] RANGE. CHEST 1995;108:231S-246S. Performed By: #### 3 8799, 80941 #### [facility] [address] [place] [address], [facility] PT Coag (PPP) [Time] 12.9 s Normal 12.3-14.8 The [facility] Comment on above: Result Comment: ALL RESULTS MUST BE INTERPRETED WITH RESPECT TO BLOOD DRAWING ARTIFACT OR DILUTION ERROR OF ANTICOAGULANT AT THE TIME OF SAMPLING. Performed By: #### 3 1509, 01464 #### [facility] [address] [place] [address], [place] PT & PTTon 09-10-2020 aPTT Coag (PPP) [Time] 23.1 second(s) Low 25.1-36.5 [facility] Comment on above: Result Comment: Hepa rin therapeutic range (represented by Anti-Factor Xa activity of 0.2 - 0.4 U/mL) corresponds to PTT of 56.6 - 109.0 sec. Performed By: #### 2 863346, 04309820, 8526956, 4440035, 0831732, 1791033, 9960086, 4536470, 8930703, 99883926, 8302963, 07106511, 42989222, 7283297 ####[facility] [address] [place] [address] INR Coag (PPP) [Relative time] 1.0 {INR} [facility] Comment on above: Result Comment: INR results are specifically intended to assess patients stabilized on long-term Anticoagulation therapy suggested INR?s ?Less Intensive Anticoagulation? 2.0 ? 3.0 Conventional Range 3.0 ? 4.5 Performed By: #### 2 989682, 11003552, 8637855, 7387860, 3927459, 5860832, 2446469, 0450993, 1592204, 44769522, 9469730, 96393099, 49672625, 1999868 ####[facility] [address] [place] [address] PT Coag (PPP) [Time] 12.0 second(s) Normal 10.2-12.9 [facility] Comment on above: Performed By: #### 2 846069, 55842481, 4957981, 7074504, 4203292, 5551292, 7862755, 0563773, 3756297, 85260378, 3642306, 85558921, 57216641, 4070656 ####[facility] [address] [place] [address] RCOon 09-10-2020 # of Units 2 [facility] Comment on above: Result Comment: 09/10 12:19 [id number] Blood product ready and called to Renu in ED at 09/10/2020 12:19:01 EST by inga. Performed By: #### 1 [id number] #### [facility] [address] [place] [address] Date Required 09-10-2020 [facility] Comment on above: Performed By: #### 1 [id number] #### [facility] [address] [place] [address] Product Type None Required [facility] Comment on above: Performed By: #### 1 [id number] #### [facility] [address] [place] [address] TROPONIN-Ion 09-10-2020 Troponin I.cardiac [Mass/Vol] 0.03 ng/mL Normal 0.00-0.04 [facility] Comment on above: Result Comment: REFE RENCE RANGES: 0.00 - 0.04 ng/ml NORMAL 0.05 - 0.50 ng/ml INDETERMINATE > 0.50 ng/ml CONSISTENT WITH AN M.I. Performed By: #### 3 1509, 77372 #### [facility] [address] [place] [address], [facility] Transfer Documentson 020 Transfer Documents [id number] CD:127 Normal [facility] Troponinon 09-10-2020 Troponin I.cardiac [Mass/Vol] 12.10 pg/mL Low 15.90-38.40 [facility] Comment on above: Result Comment: The 95% CI (Confidence Interval) PPV (Positive Predictive Value) for myocardial infarction in females is 38 pg/mL, in males 51 pg/mL. The results should be used in conjunction with clinical conditions of myocardial infarction. (Access High Sensitivity Troponin I Instructions For Use, Meghana [place], June 2018) Performed By: #### 2 929737, 27577495, 3284598, 5749229, 5013319, 2170635, 0707038, 3566836, 4900760, 85216539, 2977999, 69738895, 60243037, 8984926 ####[facility] [address] [place] [address] U Drug Screenon 09-10-2020 Amphetamines Screen method >1000 ng/mL Ql (U) Negative Normal Negative [facility] Comment on above: Result Comment: Nega tive Cutoff: <1000 ng/mL Performed By: #### 2 171556 #### [facility] [address] [place] [address] Barbiturates Screen Ql (U) Negative Normal Negative [facility] Comment on above: Result Comment: Nega tive Cutoff: <200 ng/mL Performed By: #### 2 184551 #### [facility] [address] [place] [address] Benzodiazepines Ql (U) Negative Normal Negative [facility] Comment on above: Result Comment: Nega tive Cutoff: <200 ng/mL Performed By: #### 2 305019 #### [facility] [address] [place] [address] Cocaine Ql (U) Negative Normal Negative [facility] Comment on above: Result Comment: Nega tive Cutoff: <300 ng/mL Performed By: #### 2 626404 #### [facility] [address] [place] [address] Opiates Screen Ql (U) Negative Normal Negative [facility] Comment on above: Result Comment: Nega tive Cutoff: <300 ng/mL Performed By: #### 2 540357 #### [facility] [address] [place] [address] Phencyclidine Screen method >25 ng/mL Ql (U) Negative Normal Negative [facility] Comment on above: Result Comment: Nega tive Cutoff: <25 ng/mL These drug screen results are to be used for medical (i.e., treatment) purposes only. Unconfirmed drug screening results must not be used for non-medical purposes (e.g., employment testing, legal testing). Performed By: #### 2 503770 #### [facility] [address] [place] [address] Tetrahydrocannabinol Screen method >50 ng/mL Ql (U) Negative Normal Negative [facility] Comment on above: Result Comment: Nega tive Cutoff: <50 ng/mL Performed By: #### 2 578713 #### [facility] [address] [place] [address] URINALYSISon 09-10-2020 Appearance (U) SL CLOUDY Abnormal CLEAR The [facility] Comment on above: Performed By: #### 1 0008 #### [facility] [address] [place] [address], [facility] Bilirubin [Mass/Vol] Negative Normal NEGATIVE The [facility] Comment on above: Performed By: #### 1 0008 #### [facility] [address] [place] [address], [facility] BLOOD LARGE Abnormal NEGATIVE The [facility] Comment on above: Performed By: #### 1 0008 #### [facility] [address] [facility] [place] [address], [facility] Color (U) STRAW Abnormal YELLOW The [facility] Comment on above: Performed By: #### 1 0008 #### [facility] [address] [place] [address], [facility] EPIS NONE SEEN Normal FEW,OCC,NON E SEEN The [facility] Comment on above: Performed By: #### 1 0008 #### [facility] [address] [place] [id number], [facility] Glucose [Mass/Vol] 50 mg/dL Abnormal NEGATIVE The [facility] Comment on above: Performed By: #### 1 0008 #### [facility] [address] [place] [address], [facility] KETONE Negative Normal NEGATIVE The [facility] Comment on above: Performed By: #### 1 0008 #### [facility] [address] [place] [address], [facility] LEUK DEJAH TRACE Abnormal NEGATIVE The [facility] Comment on above: Performed By: #### 1 0008 #### [facility] [address] [place] [address], [facility] Nitrite Ql (U) Negative Normal NEGATIVE The [facility] Comment on above: Performed By: #### 1 0008 #### [facility] [address] [facility] [place] [address], [facility] pH (Bld) 7.0 Normal 5.0-8.0 The [facility] Comment on above: Performed By: #### 1 0008 #### [facility] [address] [facility] [place] [address], [facility] Protein (U) [Mass/Vol] 100 mg/dL Abnormal NEGATIVE Th e [facility] Comment on above: Performed By: #### 1 0008 #### [facility] [address] [facility] [place] [address], [facility] RBC (U) [#/Vol] 51-100 Abnormal NONE SEEN The [facility] Comment on above: Performed By: #### 1 0008 #### [facility] [address] [place] [address], [facility] SPEC GRAV 1.006 Low 1.015-1.020 The [facility] Comment on above: Performed By: #### 1 0008 #### [facility] [address] [place] [address], [facility] WBC UA 6-10 Abnormal NONE SEEN The [facility] Comment on above: Performed By: #### 1 0008 #### [facility] [address] [place] [address], [facility] VENOUS BLOOD GASon 0 BASE EXCESS -6 mmol/L Normal [facility] Comment on above: Performed By: #### 3 1509, 01805 #### [facility] [address] [place] [address], [place] HCO3 (Bld) [Moles/Vol] 19 mmol/L Normal Th e [facility] Comment on above: Performed By: #### 3 1509, 79655 #### [facility] [address] [place] [address], [place] Oxygen (Bld) [Partial pressure] 37 mm[Hg] Normal 35-45 The [facility] Comment on above: Performed By: #### 3 1509, 97148 #### [facility] [address] [place] [address], [facility] Oxygen saturation in Blood 68.4 % Normal 65.0-75.0 The [facility] Comment on above: Performed By: #### 3 1509, 78515 #### [facility] [address] [place] [address], [facility] PCO2 37 mmHg Normal [facility] Comment on above: Performed By: #### 3 1509, 41875 #### [facility] [address] [place] [address], [place] pH (Bld) 7.32 [pH] Normal 7.31-7.41 The [facility] Comment on above: Performed By: #### 3 1509, 01983 #### [facility] [address] [place] [address], [place] eGFRon 09-10-2020 GFR/1.73 sq M predicted among blacks MDRD (S/P/Bld) [Vol rate/Area] 5 mL/min/1.73 m2 Low >=59 [facility] Comment on above: Order Comment: Order added by Discern Expert. Result Comment: eGFR is race adjusted. AA=. Performed By: #### 2 341631, 81618287, 6780354, 5751082, 5108359, 8101876, 1528409, 9542664, 6102917, 89868981, 8906697, 64055292, 02448460, 5441961 ####[facility] [address] [place] [address] GFR/1.73 sq M predicted among non-blacks MDRD (S/P/Bld) [Vol rate/Area] 5 mL/min/1.73 m2 Low >=59 [facility] Comment on above: Order Comment: Order added by Discern Expert. Result Comment: Conference Service Coordinator jean kidney disease could be indicated at eGFR's of less than 60 mL/min/1.73m2. Kidney failure is indicated at less than 15 mL/min/1.73m2. Performed By: #### 2 282269, 40156204, 7624145, 1479874, 3934018, 2575593, 1318280, 4323865, 1028884, 53427526, 0624110, 38924952, 27137104, 1106836 ####[facility] [address] [place] [address] Vital Signs Date Time Vital Sign Value Performing Clinician Facility 08-16-2024 15:08-0400 Body mass index (BMI) [Ratio] 21.2 kg/m2 [facility] 08-16-2024 15:08-0400 Diastolic blood pressure 100 mm[Hg] [facility] 08-16-2024 15:08-0400 Systolic blood pressure 160 mm[Hg] [facility] 08-16-2024 14:41-0400 Body height 179.07 cm [facility] 08-16-2024 14:41-0400 Body weight 68.26 kg [facility] 08-16-2024 14:41-0400 Heart rate 91 /min [facility] 08-16-2024 14:41-0400 Respiratory rate 12 /min [facility] 05-04-2024 13:35-0400 Body height 179.07 cm [facility] 05-04-2024 13:35-0400 Body mass index (BMI) [Ratio] 21.1 kg/m2 [facility] 05-04-2024 13:35-0400 Body weight 67.69 kg [facility] 05-04-2024 13:35-0400 Diastolic blood pressure 134 mm[Hg] [facility] 05-04-2024 13:35-0400 Heart rate 98 /min [facility] 05-04-2024 13:35-0400 Respiratory rate 12 /min [facility] 05-04-2024 13:35-0400 Systolic blood pressure 199 mm[Hg] [facility] 02-03-2024 15:18-0400 Body height 179.07 cm [facility] 02-03-2024 15:18-0400 Body mass index (BMI) [Ratio] 22.9 kg/m2 [facility] 02-03-2024 15:18-0400 Body weight 73.59 kg [facility] 02-03-2024 15:18-0400 Diastolic blood pressure 114 mm[Hg] [facility] 02-03-2024 15:18-0400 Heart rate 87 /min [facility] 02-03-2024 15:18-0400 Respiratory rate 12 /min [facility] 02-03-2024 15:18-0400 Systolic blood pressure 176 mm[Hg] [facility] 12-03-2023 14:41-0500 Blood Pressure Location AGNES DARREL [facility] 12-03-2023 14:41-0500 Diastolic blood pressure 83 mm[Hg] AGNES DARREL [facility] 12-03-2023 14:41-0500 Heart rate 77 /min AGNES DARREL [facility] 12-03-2023 14:41-0500 Respiratory rate 16 /min AGNES DARREL [facility] 12-03-2023 14:41-0500 Systolic blood pressure 136 mm[Hg] AGNES ROJO [facility] 10-10-2023 14:30-0500 Body height 179.07 cm Soham Ball Other [facility] Other 10-10-2023 14:30-0500 Body mass index (BMI) [Ratio] 21.64 kg/m2 Soham Ball Other [facility] Other 10-10-2023 14:30-0500 Body weight 69.4 kg Soham Ball Other [facility] Other 10-10-2023 14:30-0500 Diastolic blood pressure 106 mm[Hg] Soham Ball Other [facility] Other 10-10-2023 14:30-0500 Respiratory rate 12 /min Soham Ball Other [facility] Other 10-10-2023 14:30-0500 Systolic blood pressure 181 mm[Hg] Soham Ball Other [facility] Other 07-11-2023 13:45-0400 Body height 179.07 cm Soham Ball Other [facility] Other 07-11-2023 13:45-0400 Body mass index (BMI) [Ratio] 21.36 kg/m2 Soham Ball Other [facility] Other 07-11-2023 13:45-0400 Body weight 68.49 kg Soham Ball Other [facility] Other 07-11-2023 13:45-0400 Diastolic blood pressure 101 mm[Hg] Soham Ball Other [facility] Other 07-11-2023 13:45-0400 Respiratory rate 12 /min Soham Ball Other [facility] Other 07-11-2023 13:45-0400 Systolic blood pressure 173 mm[Hg] Soham Ball Other [facility] Other 07-03-2023 15:00-0400 Body height 179.07 cm Soham Ball Other [facility] Other 07-03-2023 15:00-0400 Body mass index (BMI) [Ratio] 20.93 kg/m2 Soham Ball Other [facility] Other 07-03-2023 15:00-0400 Body weight 67.13 kg Soham Ball Other [facility] Other 07-03-2023 15:00-0400 Diastolic blood pressure 127 mm[Hg] Soham Ball Other [facility] Other 07-03-2023 15:00-0400 Respiratory rate 12 /min Soham Ball Other [facility] Other 07-03-2023 15:00-0400 Systolic blood pressure 203 mm[Hg] Soham Ball Other [facility] Other 06-19-2023 12:10-0400 Body height 179.07 cm Bonita Ni Other [facility] Other 06-19-2023 12:10-0400 Body mass index (BMI) [Ratio] 21.64 kg/m2 Bonita Ni Other [facility] Other 06-19-2023 12:10-0400 Body temperature 98 [degF] Bonita Ni Other [facility] Other 06-19-2023 12:10-0400 Body weight 69.4 kg Bonita iN Other [facility] Other 06-19-2023 12:10-0400 Diastolic blood pressure 119 mm[Hg] Bonita Ni Other [facility] Other 06-19-2023 12:10-0400 Respiratory rate 18 /min Bonita Ni Other [facility] Other 06-19-2023 12:10-0400 SaO2% (BldA) [Mass fraction] 97 % Bonita Ni Other [facility] Other 06-19-2023 12:10-0400 Systolic blood pressure 185 mm[Hg] Bonita Ni Other [facility] Other 10-11-2022 15:30-0500 Body height 182.88 cm Thu Espinozamond Other [facility] Other 10-11-2022 15:30-0500 Body mass index (BMI) [Ratio] 20.34 kg/m2 Thu Carolina Other [facility] Other 10-11-2022 15:30-0500 Body temperature 97.8 [degF] Thu Carolina Other [facility] Other 10-11-2022 15:30-0500 Body weight 68.04 kg Thu Carolina Other [facility] Other 10-11-2022 15:30-0500 Respiratory rate 18 /min Thu Figueroa Other [facility] [employer] Other 10-11-2022 15:30-0500 SaO2% (BldA) [Mass fraction] 96 % Thu Figueroa Other [facility] [employer] Other Encounters Encounter Date Encounter Type Care Provider Facility Start: 08-16-2024 End: 08-16-[address] [facility] Work Phone: Start: 08-16-2024 End: 08-16-2024 Patient encounter procedure [facility] Work Phone: Start: 08-14-2024 Patient encounter procedure [facility] Start: 05-04-2024 End: 05-04-[address] [facility] Work Phone: Start: 05-04-2024 End: 05-04-2024 Patient encounter procedure [facility] Work Phone: Start: 02-03-2024 End: 02-03-2024 Patient encounter procedure [facility] Work Phone: Start: 02-03-2024 End: 02-03-[address] [facility] Work Phone: Start: 02-03-2024 Telephone encounter Soham Fernando [facility] Start: 12-10-2023 End: 02-03-2024 Pre-admission assessment Jeffrey MARTÍNEZ [facility] Start: 12-03-2023 End: 12-04-2023 ambulatory ANDREA ROJO [facility] Start: 12-03-2023 End: 12-03-2023 Patient encounter procedure AGNES ROJO [facility] Start: 11-17-2023 End: 11-17-2023 ambulatory Soham Fernando Other [facility] Other Start: 11-17-2023 Telephone encounter Soham Fernando [facility] Start: 11-17-2023 Patient encounter procedure [facility] Start: 10-17-2023 End: 10-17-2023 ambulatory Soham Ball Other [facility] Other Start: 10-17-2023 Telephone encounter Soham Ball [facility] Start: 10-10-2023 End: 10-10-2023 ambulatory Soham Ball Other [facility] Other Start: 10-10-2023 Office outpatient visit 25 minutes Soham Ball [facility] Start: 07-11-2023 End: 07-11-2023 ambulatory Soham Fernando Other [facility] Other Start: 07-11-2023 Office outpatient visit 25 minutes Soham Ball [facility] Start: 07-10-2023 End: 07-10-2023 ambulatory Soham Fernando Other [facility] Other Start: 07-10-2023 Telephone encounter Soham Ball [facility] Start: 07-03-2023 End: 07-03-2023 ambulatory Soham Fernando Other [facility] Other Start: 07-03-2023 Office outpatient visit 25 minutes Soham Ball [facility] Start: 07-03-2023 Telephone encounter Soham Ball [facility] Start: 06-19-2023 End: 06-19-2023 ambulatory Bonita Ni Other [facility] Other Start: 06-19-2023 Office outpatient visit 15 minutes Bonita Last [facility] Start: 11-01-2022 End: 11-01-2022 ambulatory Floyd Rubi Facility:[facility] Start: 11-01-2022 End: 11-01-2022 ambulatory PHYSICIAN KYE [facility] Work Phone: Start: 11-01-2022 End: 11-01-2022 Patient encounter procedure PHYSICIAN KYE [facility] Start: 10-11-2022 End: 10-11-2022 ambulatory Thu Figueroa Other [facility] Other Start: 10-11-2022 Office outpatient visit 15 minutes Thu Figueroa [facility] Start: 10-09-2022 End: 10-09-2022 ambulatory Floyd Rubi Other [facility] Other Start: 10-09-2022 [facility] visit new patient Floyd Elicia [facility] Start: 10-06-2022 End: 10-07-[address] SOHAM FERNANDO Facility: Start: 10-23-2020 Patient encounter procedure [facility] Start: 10-19-2020 End: 10-20-2020 Patient encounter procedure [facility] Start: 10-19-2020 End: 10-19-2020 Subsequent hospital visit by physician [facility] Start: 10-16-2020 End: 10-17-2020 Patient encounter procedure [facility] Start: 10-16-2020 End: 10-16-2020 Subsequent hospital visit by physician [facility] Start: 10-13-2020 End: 10-14-2020 Patient encounter procedure [facility] Start: 10-13-2020 End: 10-13-2020 Subsequent hospital visit by physician [facility] Start: 10-12-2020 End: 10-13-2020 Patient encounter procedure [facility] Start: 10-12-2020 End: 10-12-2020 Subsequent hospital visit by physician [facility] Start: 10-11-2020 End: 10-12-2020 Patient encounter procedure [facility] Start: 10-11-2020 End: 10-11-2020 Subsequent hospital visit by physician [facility] Start: 10-10-2020 End: 10-11-2020 Patient encounter procedure JEFFRY AMADOR [facility] Start: 10-10-2020 End: 10-10-2020 Subsequent hospital visit by physician [facility] Start: 10-09-2020 End: 10-10-2020 Patient encounter procedure JEFFRY AMADOR [facility] Start: 10-09-2020 End: 10-09-2020 Subsequent hospital visit by physician [facility] Start: 09-10-2020 End: 09-26-2020 Evaluation and management of inpatient ROHITH SALAS Facility[facility] Procedures Date Procedure Procedure Detail Performing [...] on above: Performed By: #### 6 [id number] ####[facility] Start: 09-14-2020 Antibody screen ROHITH LOFTON Comment on above: Performed By: #### 3 1509, 79652 #### [facility] [address] [place] [address], [facility] Start: 09-14-2020 TRANSFUSE NONAUT RED BLOOD CELLS IN PERIPH VEIN, PERC ROHITH SALAS Start: 09-11-2020 [object Object] ROHITH LOFTON Comment on above: Order Comment: Yes: Add to Previous draw if able Performed By: #### 4 1533 ####[facility].[address] Extraction of cataract SUSANNE PAOLA DARREL [...] 07-04-2020 Influenza vaccination Flu vaccine (# 1) [place], [place] Comprehensive metabo lic 2000 panel - Serum or Plasma [facility] Immunizations Immunization Date Immunization Notes Care Provider Fa cility 07-11-2023 influenza, high dose seasonal, preservative-free Soham Fernando Other [facility] Other 07-11-2023 Prevnar 20 Soham Fernando Other [facility] 07-11-2023 influenza virus vaccine, unspecified formulation [facility] Payers Date Payer Category Payer Unknown [id number] 2023 Medicare [id number] 2022 Self-pay 1959 Self-pay [id number] 1945 Unknown [id number] 2.16.8 [id number] 1945 Unknown [id number] 2.16.84 [id number] 1945 Unknown [id number] 2.16.8 [id number] Unknown [id number] 2.16.8 [id number] Unknown [id number] 2.16.8 [id number] Social History Date Type Detail [facility] [place], [place] Sex Assigned At Not on file [place], [place] Sex Assigned At [facility] Start: 1945 Sex Assigned At Male F [facility] Start: 04-17-2021 End: 2024 Tobacco smoking status Ex-smoker (finding) [facility] Functional Status Date Assessment Result Facility 12-03-2023 Functional Status N/A [facility] [place] Clinical Notes 10-09-2022 to 12-03-2023 [...] including vitamins, herbs, eye drops, creams, and orwh-jsl-mumwmwa medicines. ?Whether you are or may be [...] provider. Document Revised: 07/03/2022 Document Reviewed: 05/25/2021 [employer] Patient Education 2022 [employer]. 12/03/2023 15:44:25 Cystoscopy Cystoscopy Cystoscopy is a [...] including vitamins, herbs, eye drops, creams, and etdx-fvp-ubfljrr medicines. Any problems you or family members [...] provider tells you to take them. Taking kzas-kpj-tgwtibe medicines, vitamins, herbs, and supplements. Tests You [...] Follow these instructions at home: Medicines Take vrvf-hix-ycihlsd and prescription medicines only as told by [...] provider. Document Revised: 07/03/2022 Document Reviewed: 06/01/2021 [employer] Patient Education 2022 [employer]. 12/03/2023 15:42:54 Acute Urinary Retention, Male Acute [...] Follow these instructions at home: Medicines Take dkvz-kmk-fnqflet and prescription medicines only as told by [...] provider. Document Revised: 07/11/2021 Document Reviewed: 07/11/2021 [employer] Patient Education 2022 [employer]. Follow Up Care 10/22/2023 15:11:22 With:AGNES ROJO PA-C, URL Address: [address] [place] [address] [phone] When: Unknown Comments:sched cysto/uros [facility] [place] 10-10-2023 Evaluation note Encounter Date [...] candidate, will discuss further at wellness examination [facility] Other [id number] Evaluation note* Encounter Date Diagnosis Assessment Notes [...] candidate, will discuss further at wellness examination [facility] Other 09-08-2023 Evaluation note* Encounter Date Diagnosis [...] and cancers. Discussed scheduling LDCT in future [facility] Other 08-31-2023 Evaluation note* Encounter Date Diagnosis [...] PSA (prostate specific antigen) (ICD-10 - Z12.5) [facility] Other 08-17-2023 Evaluation note* Encounter Date Diagnosis Assessment Notes Treatment Notes Treatment Clinical Notes Jun, Encounter for removal of sutures (ICD-10 - Z48.02) 5 sutures removed today in office, patient tolerated procedure well. Advised patient that he may leave area HAND COUNTER. Follow-up with PCP for signs signs/symptoms of [...] contact to establish with Dr. Fernando in [place]. Advised patient to head into ER for chest pain, shortness of breath, headaches, fevers greater than 103. Patient verbalizes understanding and is agreeable with treatment plan [facility] Other 12-09-2022 Evaluation note* Encounter Date Diagnosis Assessment Notes Treatment Notes Treatment Clinical Notes Oct, Visit for suture removal (ICD-10 - Z48.02) Suture removal home care material was printed Keep the wounds to the face and upper lip clean and dry. Apply antibiotic ointment to the wounds daily until they are completely healed. Follow-up with your family physician for any further concern [facility] Other 12-07-2022 Evaluation note* Encounter Date Diagnosis [...] in office today. Prior medical notes from [place] ED and history have been reviewed. At this time I would recommend splint application and nonweightbearing. We will plan for follow-up 3 to 4 weeks for repeat x-rays. The patient has been involved in our cooperative treatment plan and agrees to move forward with treatment at this time. Oct, Other See orders for this visit as documented in the electronic medical record. [facility] Other Evaluation + Plan note No data available for this section [facility] Evaluation noteNo assessment information available [facility] Work Phone: Evaluation noteNo InformationN[facility] [employer] Other Evaluation note* Diagnosis Onset Date Resolution Status Benign prostatic hyperplasia with lower urinary tract symptoms acute Mild cognitive impairment [place] Primary hypertension acute Simple chronic bronchitis [place] Stage 3b chronic kidney disease acute [facility] Work Phone: Evaluation note* Diagnosis Onset Date Resolution Status Benign prostatic hyperplasia with lower urinary tract symptoms acute Medicare annual wellness visit, subsequent acute Mild cognitive impairment [place] Primary hypertension acute Simple chronic bronchitis [place] Stage 3b chronic kidney disease acute Unsteady when turning acute [facility] Work Phone: Hisjpgy general Narrative - Reported* Type Description Date Medical History right arm injury Surgical History eye surgery [facility] Other Hisqpud general Narrative - Reported* Type Description Date Medical History right arm injury Medical History HTN (hypertension) Medical History BPH (benign prostatic hyperplasi a) Medical History Constipation Medical History GERD (gastroesophageal reflux di sease) Medical History Iron deficiency anemia Surgical History eye surgery [facility] Other Hisuvos general Narrative - Reported* Type Description Date Medical History right arm injury Medical History HTN (hypertension) Medical History BPH (benign prostatic hyperplasi a) Medical History Constipation Medical History GERD (gastroesophageal reflux di sease) Medical History Iron deficiency anemia Surgical History eye surgery Hospitalization History see surgical history [facility] Other Hisxdmp general Narrative - Reported* Type Description Date Medical History right arm injury Medical History HTN (hypertension) Medical History BPH (benign prostatic hyperplasi a) Medical History Constipation Medical History GERD (gastroesophageal reflux di sease) Medical History Iron deficiency anemia Surgical History eye surgery Surgical History Rezum prostate procedure Hospitalization History see surgical history [facility] Other Hospital Discharge instructions No data available for this section [facility] No data available for this section [facility] [place] Summary Purpose Family History Relationship Condition Age at Onset Recorded Date/T seth father Unknown Not Specified Unknown Relationship Condition Age at Onset Recorded Date/T seth father Unknown mother Unknown Advance Directives Advance Directive Response Recorded Date/ Time Advance Directives No October 2:38pm Advance Directive Response Recorded Date/ Time Advance Directives No October 3:38pm Hospital Course Note MR#: [id number] [facility] Pt. Name: Chano Gomez Admitted: 09/10/2020 [...] (more content not included)... Note MR#: [id number] [facility] Pt. Name: Chano Gomez Surgery Date: 09/25/2020 Room #: [id number] Date of : 1945 PROCEDURE NOTE ATTENDING: [...] not included)... Procedure Findings Note MR#: [id number] [facility] Pt. Name: Chano Gomez Surgery Date: 09/25/2020 Room #: [id number] Date of : 1945 PROCEDURE NOTE ATTENDING: [...] incomplet e bladder emptying (R39.14) Referral Organization [facility] Abdullahi moreno Referring Provider First Name Soham Referring Provider Last Name Abdullahi Referring Provider Specialty Internal Me dicine Referred Organization [facility] Referred Address [address] [place] [place],[address] Referred Provider Specialty Urology Referral Priority Routine [...] section and content) DATE CREATED AUTHOR 10/12/2020 [facility] DATE CREATED AUTHOR AUTHOR'S ORGANIZ ATION 10/23/2020 [facility] DATE CREATED AUTHOR AUTHOR'S ORGANIZ ATION 10/26/2020 [facility] DATE CREATED AUTHOR AUTHOR'S ORGANIZ ATION 10/10/2022 [facility] DATE CREATED AUTHOR AUTHOR'S ORGANIZ ATION 11/14/2022 [facility] DATE CREATED AUTHOR AUTHOR'S ORGANIZ ATION 01/03/2024 [facility] REASON FOR VISIT (unrecogniz ed section [...] BE BASED ON THE PRIMARY CLINICAL RECORDS. [employer] provides no warranty or guarantee of the accuracy or completeness of information in this document.
[2024-12-27] MEDS: 0.9 % SODIUM CHLORIDE 1,000 ML 75 ML IV (20:24)
[2024-12-27] MEDS: AMLODIPINE BESYLATE 5 MG TABLET 10 MG PO (20:32)
[2024-12-27] MEDS: TAMSULOSIN HCL 0.4 MG CAPSULE PO (20:32)
[2024-12-27] MEDS: CARVEDILOL 12.5 MG TABLET PO (22:02)
[2024-12-27] MEDS: CITALOPRAM HYDROBROMIDE 20 MG TABLET PO (22:03)
[2024-12-27] MEDS: CLONIDINE HCL 0.1 MG TABLET PO (22:03)
[2024-12-28] VITALS (10 sets, daily range): BP systolic 114–146; BP diastolic 64–78; PULSE 62–75; TEMP 36.6–36.8; O2SAT 93–97
[2024-12-28 06:37] LABS: Alanine Aminotransferase 25 U/L (16-63); Albumin Globulin Ratio 0.6; Albumin Level 2.5 g/dL (3.4-5.0); Alkaline Phosphatase 57 U/L (46-116); Anion Gap 11.4; Aspartate Amino Transferase 18 U/L (15-37); BUN Creatinine Ratio 12.3; Bilirubin Total 0.2 mg/dL (0.2-1.0); Calcium 8.6 mg/dL (8.5-10.1); Carbon Dioxide 27.1 mmol/L (21.0-32.0); Chloride 108 mmol/L (98-107); Estimated GFR (African America 27 (>=60 mL/min/1.73m^2); Estimated GFR (Non-African Ame 22 (>=60 mL/min/1.73m^2); Globulin 4.3 g/dL; Glucose 99 mg/dL (74-106); Magnesium 2.4 mg/dL (1.8-2.4); Potassium 3.5 mmol/L (3.5-5.1); Sodium 143 mmol/L (136-145); Total Protein 6.8 g/dL (6.4-8.2)
--- NOTE | 2024-12-28 08:56 | PM.HP ---
HPI H&P: HPI History of Present Illness Chief complaint: SEIZURE UTI AMS *CONFUSED* Narrative: Patient is a 79 y.o white male with past medical history of primary hypertension and Chronic Kidney Disease who presented to the ER today from the [facility] for acute confusion and lethargy. halfway staff stated to ER: that the patient was not quite himself, he went to therapy where he had an unresponsive episode. After the episode, patient was back to baseline with stable vital signs and complaining of nausea. There was no reported postictal period. Patient has an indwelling Diaz catheter, no noted incontinence. No injury to the tongue. He has a history of metabolic encephalopathy, TIA but no noted history of seizures. Patient with history of Dementia. ER findings: Patient noted to have chronic anemia, chronic kidney disease and urinary tract infection. CT of the brain, chest x-ray read by the radiologist with no acute process noted. Labs are otherwise unremarkable and the patient is hemodynamically stable. Treated with IV Rocephin for UTI and admitted to the Hospitalist service for further plan of care. There have been no further events. He is alert, eating well. Answers questions appropriately. No current concerns or issues. Opioid HPI Opioid Management Most Recent Pain and Opioid Data: Last Pain Scale 0 12/28/24 11:18 12/28/24 Last Pain Intensity 0 11/19/24 16:48 11/19/24 Last Pain Assessment 12/28/24 12:13 Last ED Pain Assessment 12/27/24 15:16 Last ORT Total Score 0 12/27/24 18:35 12/27/24 Last ORT Risk Category Low Risk 12/27/24 18:35 12/27/24 Review of Systems ROS Narrative ROS: a complete review of systems were reviewed with patient and are positive as below or listed in History of Chief Complaint. General: no fever, chills, night sweats Head: no headache, trauma, visual changes, nausea or vomiting Skin: no reported rashes, itching or sores Eyes: no blurriness of vision Ears: no reported hearing loss, vertigo, earache, or tinnitus Throat: no sore throat, hoarseness, swelling of neck, or tongue pain Heart: no chest pain Lungs: no shortness of breath or cough GI: no diarrhea or vomiting/nausea Urinary: no urinary urgency, frequency or pain Neuro: no numbness or tingling HEM: no bleeding issues or bruising ENDO: no thyroid problems Psych: no anxiety or depression [facility] Medical History (Updated 12/28/24 @ 09:05 by Valentina Morris DO) Dementia ?F03.90 - Unspecified dementia, unspecified severity, without behavioral disturbance, psychotic disturbance, mood disturbance, and anxiety (ICD-10) Altered mental status, unspecified ?R41.82 - Altered mental status, unspecified (ICD-10) Chronic kidney disease, stage 4 (severe) ?N18.4 - Chronic kidney disease, stage 4 (severe) (ICD-10) Severe malnutrition ?E43 - Unspecified severe protein-calorie malnutrition (ICD-10) Fall ?W19.XXXA - Unspecified fall, initial encounter (ICD-10) Rhabdomyolysis ?M62.82 - Rhabdomyolysis (ICD-10) Acute urinary retention ?R33.8 - Other retention of urine (ICD-10) Hypertensive emergency ?I16.1 - Hypertensive emergency (ICD-10) Metabolic encephalopathy ?G93.41 - Metabolic encephalopathy (ICD-10) Acute kidney injury ?N17.9 - Acute kidney failure, unspecified (ICD-10) Acute hypokalemia ?E87.6 - Hypokalemia (ICD-10) Weakness ?R53.1 - Weakness (ICD-10) Altered mental status ?R41.82 - Altered mental status, unspecified (ICD-10) Laceration Closed head injury ?S09.90XA - Unspecified injury of head, initial encounter (ICD-10) Abrasion ?T14.8XXA - Other injury of unspecified body region, initial encounter (ICD-10) Hypertension ?I10 - Essential (primary) hypertension (ICD-10) Kidney failure ?N19 - Unspecified kidney failure (ICD-10) Family History Father Family history of myocardial infarction Social History Within the past year, how often did you have a drink containing alcohol: never Score interpretation: A score less than 4 is consistent with normal alcohol consumption. Smoking status: Never smoker Second hand tobacco smoke exposure: No Non-prescribed substance use: denies use Previous occupational history: Retired [employer] Known occupational exposures/hazards: No Highest level of school completed/degree received: high school graduate Do you want help with school or training: No Are you now , , , , never or living with a partner: In a typical week, how many times do you talk on the telephone with family, friends, or neighbors: 3 or more times per week How often do you get together with friends or relatives: 3 or more times per week How often do you attend anglican or pentecostalism services: never Do you belong to any clubs or organizations such as anglican groups unions, [employer] or [employer] groups, or school groups: no Total score: 1 Score interpretation: A score of less than or equal to 1 indicates the most socially isolated. Little interest or pleasure in doing things: not at all Feeling down, depressed, or hopeless: not at all Feel stressed/tense/nervous/anxious/difficulty sleeping: not at all Due to disability, difficulty making decisions: No Do you think of yourself as: straight/heterosexual Gender Identity: male Meds Home Medications and Allergies Home Medications ?Medication ?Instructions ?Recorded ?Confirmed ?Type carvedilol 12.5 mg tablet 12.5 mg PO BID #60 tabs 11/20/24 12/27/24 Rx olanzapine 10 mg intramuscular 10 mg IM Q8H PRN Agitation #30 ea 11/20/24 12/27/24 Rx solution tamsulosin 0.4 mg capsule 0.4 mg PO QD #30 caps 11/20/24 12/27/24 Rx amlodipine 5 mg tablet 10 mg PO QD 12/27/24 12/27/24 History citalopram 20 mg tablet (Celexa) 20 mg PO BEDTIME 12/27/24 12/27/24 History clonidine HCl 0.1 mg tablet 0.1 mg PO Q12H 12/27/24 12/27/24 History hydroxyzine HCl 25 mg tablet 25 mg PO Q6H PRN restless leg(s) 12/27/24 12/27/24 History melatonin 5 mg capsule 5 mg PO BEDTIME 12/27/24 12/27/24 History quetiapine 25 mg tablet (Seroquel) 25 mg PO DAILY 12/27/24 12/27/24 History Allergies Allergy/AdvReac Type Severity Reaction Status Date / Time No Known Drug Allergies Allergy Verified 06/10/23 17:58 Exam Narrative Exam Narrative: General: Patient is alert, and oriented to person, and time not place, with normal affect, proper hygiene Skin: no visible rashes, or ulcers Head: atraumatic, acephalic Eyes: PERRLA, no nystagmus present, conjunctiva clear, no scleral icterus Ears: diminished gross auditory acuity Heart: Normal rate and rhythm, no murmurs/rubs/gallops Lungs: no audible wheezes, crackles and normal breath sounds all lung enriquez Abdomen: Normal audible bowel sounds, no distension, No palpable masses, no organomegaly, no rebound/guarding/ or rigidity Musculoskeletal: no swelling bilateral lower extremities Neuro: CN II-X grossly intact Constitutional Vital Signs, click to edit/add: Last Vital Signs Temp 98.0 F 12/28/24 07:36 Pulse 72 12/28/24 07:36 Resp 16 12/28/24 07:36 BP 146/78 H 12/28/24 07:36 Pulse Ox 95 12/28/24 07:36 O2 Del Method Room Air 12/28/24 07:36 Results Labs Labs: Short CBC 12/27/24 Range/Units 15:00 WBC 8.9 (4.0-11.0) 10^3/uL Hgb 8.6 L (14.0-18.0) g/dL Hct 26.6 L (42.0-54.0) % Plt Count 329 (150-450) 10^3/uL BMP 12/27/24 12/28/24 15:00 05:52 Sodium 142 143 Potassium 3.4 L 3.5 Chloride 105 108 H Carbon Dioxide 26.8 27.1 BUN 39.0 H 34.0 H Creatinine 2.96 H 2.77 H Glucose 121 H 99 Calcium 8.8 8.6 Liver Function 12/27/24 12/28/24 Range/Units 15:00 05:52 Total Bilirubin 0.3 0.2 (0.2-1.0) mg/dL AST 22 18 (15-37) U/L ALT 29 25 (16-63) U/L Alkaline Phosphatase 63 57 (46-116) U/L Albumin 2.8 L 2.5 L (3.4-5.0) g/dL Urine 12/27/24 Range/Units 16:15 Urine Color Lt. yellow (YELLOW) Urine Clarity Clear (CLEAR) Urine pH 6.0 (5.0-9.0) Ur Specific Ada 1.020 (1.005-1.025) Urine Protein >=300 A (NEG/TRACE) mg/dL Urine Glucose (UA) Negative (NEGATIVE) mg/dL Assessment and Plan Assessment and Plan (1) Acute UTI: Assessment and Plan: continue rocephin. Monitor renal function. (2) Altered mental status, unspecified: Assessment and Plan: Patient with no events on telemetry or further syncopal episodes. BP stable, HR stable. Most likely from UTI, Head imaging negative. Qualifiers: Altered mental status type: disorientation Qualified Code(s): R41.0 - Disorientation, unspecified (3) Weakness: Assessment and Plan: Acute on chronic, currently in the [facility] for therapy. PT/OT evaluations (4) Hypertension: Assessment and Plan: continue amlodipine, coreg, clonidine, Qualifiers: Hypertension type: primary hypertension Qualified Code(s): I10 - Essential (primary) hypertension (5) Chronic kidney disease, stage 4 (severe): Assessment and Plan: Monitor daily (6) Dementia: Assessment and Plan: continue seroquel and olanzapine, celexa Qualifiers: Dementia behavioral or psychological symptom: unspecified whether behavioral, psychotic, or mood disturbance or anxiety Dementia severity: mild Dementia type: unspecified type Qualified Code(s): F03.A0 - Unspecified dementia, mild, without behavioral disturbance, psychotic disturbance, mood disturbance, and anxiety Plan patient is a DNRCCA Continue Heparin for DVT prophylaxis Patient is in observation and is expected to return to the [facility] today with treatment of his UTI. Urinary Catheter Management Urinary Catheter Management Urethral: Cath placed during this visit: no
[2024-12-28] MEDS: AMLODIPINE BESYLATE 5 MG TABLET 10 MG PO (09:24)
[2024-12-28] MEDS: 0.9 % SODIUM CHLORIDE 1,000 ML 75 ML IV (09:24)
[2024-12-28] MEDS: CLONIDINE HCL 0.1 MG TABLET PO (09:24)
[2024-12-28] MEDS: QUETIAPINE FUMARATE 25 MG TABLET PO (09:25)
[2024-12-28] MEDS: TAMSULOSIN HCL 0.4 MG CAPSULE PO (09:25)
[2024-12-28] MEDS: CARVEDILOL 12.5 MG TABLET PO (09:25)
--- NOTE | 2024-12-28 09:42 | SWNOTE1 ---
SW received a message from [facility] and pt was there skilled.
--- NOTE | 2024-12-28 10:00 | CM.NOTE ---
Rounds made with Dr. Morris, pt will discharge back to [facility] today.
--- NOTE | 2024-12-28 10:38 | SWNOTE1 ---
[facility] did reach back out to and expressed that they are looking for more appropriate placement as pt has been wandering. They stated somewhere like [facility] or [facility] that has skilled memory care. SW asked Roland at [facility] if they have spoke to family about this or reached out to either facility? Waiting to hear back.
--- NOTE | 2024-12-28 11:26 | SWNOTE1 ---
SW received a message from case management and pt will be discharged today. RENATO notified [facility].
--- NOTE | 2024-12-28 13:06 | SWNOTE1 ---
SW called and set up trips for 4:00 for pt to return to [facility] skilled. SW will send orders over once they are completed. Nurse called and made report to nurse at [facility]. SW notified [facility] of time.
--- NOTE | 2024-12-28 13:12 | SWNOTE1 ---
RENATO called pt's son and notified him of dc time back to [facility].
--- NOTE | 2024-12-28 13:42 | SWNOTE1 ---
Medicare Outpatient Observation Notice reviewed and discussed with patient's son, Michael, over the phone. Pt's son verbalized understanding and SW signed the form that it was reviewed. Original placed in pt's room and copy placed in patient?s chart.
--- NOTE | 2024-12-28 13:55 | PM.DS1 ---
DS: Providers Provider Date of admission: 12/27/24 18:18 Primary care physician: Soham Fernando DO Attending physician on admission: Valentina Morris Discharging clinician: Valentina Morris DS: Diagnosis Discharge Diagnosis (1) Acute UTI: (2) Altered mental status, unspecified: Qualifiers: Altered mental status type: disorientation Qualified Code(s): R41.0 - Disorientation, unspecified (3) Weakness: (4) Hypertension: Qualifiers: Hypertension type: primary hypertension Qualified Code(s): I10 - Essential (primary) hypertension (5) Chronic kidney disease, stage 4 (severe): (6) Dementia: Qualifiers: Dementia type: unspecified type Dementia severity: mild Dementia behavioral or psychological symptom: unspecified whether behavioral, psychotic, or mood disturbance or anxiety Qualified Code(s): F03.A0 - Unspecified dementia, mild, without behavioral disturbance, psychotic disturbance, mood disturbance, and anxiety DS: Summary Hospital Course Hospital Course: Patient will be discharged on Keflex 250mg BID x 7 days, urine culture pending at the time of discharge. He will return back to the [facility]. Status at Discharge Functional status at discharge: uses cane/walker Overall status at discharge: patient is progressing back to baseline Time Spent with Patient Time attestation: Total time spent providing and/or coordinating discharge services: Time spent: greater than 30 minutes Exam Narrative Exam Narrative: no changes from admission H&P dated 12/28/24 Constitutional Vital Signs, click to edit/add: Last Vital Signs Temp 97.8 F 12/28/24 11:18 Pulse 63 12/28/24 11:51 Resp 16 12/28/24 11:18 BP 114/64 12/28/24 11:18 Pulse Ox 95 12/28/24 11:18 O2 Del Method Room Air 12/28/24 11:18 DS: Data Data Completed and Pending Labs on day of discharge: Labs from last 24 hours 12/28/24 12/27/24 12/27/24 05:52 16:15 15:00 WBC 8.9 RBC 2.98 L Hgb 8.6 L Hct 26.6 L MCV 89.3 MCH 28.9 MCHC 32.3 RDW 15.6 H Plt Count 329 MPV 9.7 Neut % (Auto) 73.3 Lymph % (Auto) 17.4 L [place] % (Auto) 6.7 Eos % (Auto) 1.6 Baso % (Auto) 0.5 Neut # (Auto) 6.5 Lymph # (Auto) 1.5 [place] # (Auto) 0.6 Eos # (Auto) 0.1 Baso # (Auto) 0.0 Abs Immat Gran (auto) 0.04 H Imm/Tot Granulo (auto) 0.5 PT 10.7 INR 1.01 Sodium 143 142 Potassium 3.5 3.4 L Chloride 108 H 105 Carbon Dioxide 27.1 26.8 Anion Gap 11.4 13.6 BUN 34.0 H 39.0 H Creatinine 2.77 H 2.96 H Est GFR ( Amer) 27 L 25 L Est GFR (Non-Af Amer) 22 L 21 L BUN/Creatinine Ratio 12.3 13.2 Glucose 99 121 H Lactate 1.4 Calcium 8.6 8.8 Magnesium 2.4 2.4 Total Bilirubin 0.2 0.3 AST 18 22 ALT 25 29 Alkaline Phosphatase 57 63 Troponin I High Sens 8.7 Total Protein 6.8 7.6 Albumin 2.5 L 2.8 L Globulin 4.3 4.8 Albumin/Globulin Ratio 0.6 0.6 TSH 2.103 Urine Color Lt. yellow Urine Clarity Clear Urine pH 6.0 Ur Specific [place] 1.020 Urine Protein >=300 A Urine Glucose (UA) Negative Urine Ketones Negative Urine Occult Blood Negative Urine Nitrite Negative Urine Bilirubin Negative Urine Urobilinogen 0.2 Ur Leukocyte Esterase Small A Urine RBC 0-2 Urine WBC 5-10 A Ur Squamous Epith Cells Few A Urine Crystals None seen Urine Bacteria Small A Urine Casts None seen Urine Mucus None seen Ur Culture Indicated? Yes-[facility] [place], [place] Preliminary micro results at discharge 12/27/24 16:15 Urine Culture - Preliminary Urine,Clean Catch Pending - Specimen sent to [facility] Discharge Plan Discharge Disposition: Xfer SNF Condition: Good Discharge Medications: New cephalexin 250 mg capsule 250 mg PO BID 7 Days Qty: 14 0RF Continued carvedilol 12.5 mg Tablet 12.5 mg PO BID Qty: 60 11RF tamsulosin 0.4 mg Capsule 0.4 mg PO QD Qty: 30 11RF olanzapine 10 mg Recon Soln 10 mg IM Q8H PRN (Reason: Agitation) Qty: 30 11RF citalopram [Celexa] 20 mg tablet 20 mg PO BEDTIME melatonin 5 mg capsule 5 mg PO BEDTIME quetiapine [Seroquel] 25 mg tablet 25 mg PO DAILY amlodipine 5 mg Tablet 10 mg PO QD clonidine HCl 0.1 mg tablet 0.1 mg PO Q12H hydroxyzine HCl 25 mg tablet 25 mg PO Q6H PRN (Reason: restless leg(s)) Print Language: Uzbek Accounts Payable Payroll Coordinator/Residency Program Coordinator Instructions: Discharge back to [facility] skilled Forms: Portal Instructions
--- NOTE | 2024-12-28 14:04 | SWNOTE1 ---
RENATO faxed over dc med rec, H&P, and dc summary to [facility]. RENATO took packet to floor.
--- NOTE | 2025-01-03 11:48 | CM.NOTE ---
Final urine culture faxed to [place], fax confirmation received.
== END 2024-12-28 15:52 ==
LOC: ER 17:31 → MS 18:22
PROVIDERS: Physician Assistant; Registered Nurse; Admitting Provider Family Medicine; Emergency Provider Emergency Medicine; PCP Internal Medicine; Visit Provider Family Medicine
DX: N39.0 Urinary tract infection, site not specified (principal); R41.82 Altered mental status, unspecified; R56.9 Unspecified convulsions; Z86.73 Personal history of transient ischemic attack (TIA), and cerebral infarction without residual deficits; Z66 Do not resuscitate; I12.9 Hypertensive chronic kidney disease with stage 1 through stage 4 chronic kidney disease, or unspecified chronic kidney disease; N18.4 Chronic kidney disease, stage 4 (severe); R53.1 Weakness; F03.A0 Unspecified dementia, mild, without behavioral disturbance, psychotic disturbance, mood disturbance, and anxiety; B96.89 Other specified bacterial agents as the cause of diseases classified elsewhere
CPT/HCPCS: 36415; 70450; 71045; 80053; 81001; 83605; 83735; 84443; 84484; 85025; 85610; 87086; 87150; 87186; 93005; 94761; 96361; 96365; 99285; G0378; J0696

== ENCOUNTER 2025-02-03 19:12 | Emergency (ER) | payer MEDICARE, OTHER, SELFPAY ==
[2025-02-03 19:13] VITALS: BP 125/89; PULSE 86; O2SAT 99
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
[2025-02-03 19:29] LABS: Basophils Absolute Auto 0.1 10^3/uL (0.0-0.1); Basophils Percent Auto 1.1 % (0.2-2.0); Eosinophils Absolute Auto 0.3 10^3/uL (0.0-0.7); Eosinophils Percent Auto 3.8 % (0.9-7.0); Hematocrit 26.7 % (42.0-54.0); Hemoglobin 8.6 g/dL (14.0-18.0); Immature Granulocytes Abs Auto 0.06 10^3/uL (0.00-0.03); Immature Granulocytes Pct Auto 0.8 % (0.0-0.5); Lymphocytes Absolute Auto 2.3 10^3/uL (1.2-3.8); Lymphocytes Percent Auto 32.3 % (20.5-60.0); Mean Corpuscular HGB Conc 32.2 g/dL (29.9-35.2); Mean Corpuscular Hemoglobin 27.8 pg (25.9-34.0); Mean Corpuscular Volume 86.4 fL (80.0-94.0); Mean Platelet Volume 10.2 fL (9.5-13.5); Monocytes Absolute Auto 0.5 10^3/uL (0.3-0.8); Neutrophils Absolute Auto 3.9 10^3/uL (1.4-6.5); Platelet Count 457 10^3/uL (150-450); Red Blood Count 3.09 10^6/uL (4.70-6.10); Red Cell Distribution Width 16.6 % (11.0-15.0); White Blood Count 7.2 10^3/uL (4.0-11.0)
--- OUTSIDE RECORDS SUMMARY | 2025-02-03 19:29 | XMS_ITS ---
Author Name Auto Generated Organization OH[facility] Care Team Providers Care Visitor Services Information Assistant Name Role Phone Soham Fernando [facility] Unavailable Stephanie Sarmiento Attending Unavailable Stephanie Sarmiento Admitting Unavailable KATHY HARRIS Referring Unavailable ATILIO BASS Referring Unavailable STEPHANE RAMOS Consulting Unavailable KENN MOYA Admitting Unavailable KENN MOYA Attending Unavailable LIV OROZCO Consulting Unavailable AHLUCIE OSEGUERA Referring Unavailable PROBLEMS DATE TYPE CONDITION / CODE ATTENDING STATUS [facility] 01/24/2025 Unknown Acute kidney failure, unspecified / N17.9(ICD-10) KENN MOYA [facility] 01/24/2025 Unknown Urinary tract infection, site not specified / N39.0(ICD-10) NITAKENN HARPER [facility] 01/22/2025 Admitting diagnosis Fever, unspecified / R50.9(ICD-10) [facility] 01/22/2025 Admitting diagnosis Altered mental status, unspecified / R41.82(ICD-10) [facility] PROCEDURES No Procedure Records Found RESULTS CBC WITH DIFF Collected: 01/27/2025 6:10 AM Status: F Source: [facility] REPOSITORY TYPE CODE TESTS RESULT OUT OF RANGE REFERENCE UNITS LAB WBC(LOINC) WBC Count 6.9 3.5-11.3 k/uL LAB RBC(LOINC) RBC Count 3.00 Low 4.21-5.77 m/uL LAB HGB(LOINC) Hemoglobin 8.0 Low 13.0-17.0 g/dL LAB HCT(LOINC) Hematocrit 25.5 Low 40.7-50.3 % LAB MCV(LOINC) MCV 85.0 82.6-102.9 fL LAB MCH(LOINC) MCH 26.7 25.2-33.5 pg LAB MCHC(LOINC) MCHC 31.4 28.4-34.8 g/dL LAB RDW(LOINC) RDW 15.4 High 11.8-14.4 % LAB PLT(LOINC) Platelet Count 497 High 138-453 k/uL LAB MPVX(LOINC) MPV 10.7 8.1-13.5 fL LAB NRBCS(LOINC) NRBC Automated 0.0 0.0 per 100 WBC LAB SEG(LOINC) Neutrophil (Seg) 60 36-65 % LAB LYM(LOINC) Lymphocyte 26 24-43 % LAB MON(LOINC) Monocyte 9 3-12 % LAB EO(LOINC) Eosinophil 1 1-4 % LAB BASO(LOINC) Basophil 1 0-2 % LAB IGRAN(LOINC) Immature Granulocyte 3 High 0 % LAB ASEG(LOINC) Abs.Neutrophil (Seg) 4.15 1.50-8.10 k/uL LAB ALYM(LOINC) Abs. Lymph 1.82 1.10-3.70 k/uL LAB AMONO(LOINC) Abs. Monocyte 0.60 0.10-1.20 k/u L LAB AEO(LOINC) Abs. Eosinophil 0.09 0.00-0.44 k/u L LAB ABASO(LOINC) Abs. Basophil 0.07 0.00-0.20 k/u L LAB AIGRAN(LOINC) Abs.Imm.Granulo cyte 0.17 0.00-0.30 k/uL Performed By: #### CDP, MG, BMPX #### [facility] [address] [place] [address] Log Chain Worker: Dimas Chandler MD BASIC METAB W/RFX MG Collected: 025 6:10 AM Status: F Source: [facility] REPOSITORY TYPE CODE TESTS RESULT OUT OF RANGE REFERENCE UNITS LAB NA(LOINC) NA (Sodium) 139 136-145 mmol/L LAB K(LOINC) K (Potassium) 3.5 Low 3.7-5.3 mmol/L LAB CL(LOINC) Chloride 109 High 98-107 mmol/L LAB HCO(LOINC) CO2 20 20-31 mmol/L LAB GAP(LOINC) Anion Gap 10 9-16 mmol/L LAB GLU(LOINC) Glucose 95 74-99 mg/dL LAB BUN(LOINC) BUN (Urea N) 28 High 8-23 mg/dL LAB CRE(LOINC) Creatinine 2.5 High 0.70-1.20 mg/dL LAB EGFR(LOINC) eGFR 26 Low >60 mL/min/1 .73m2 Result Comment: These results are not intended for use in patients <18 years of age. eGFR results are calculated without a race factor using the 2020 CKD-EPI equation. Careful clinical correlation is recommended, particularly when comparing to results calculated using previous equations. The CKD-EPI equation is less accurate in patients with extremes of muscle mass, extra-renal metabolism of creatine, excessive creatine ingestion, or following therapy that affects renal tubular secretion. LAB BUNCRE(LOINC) BUN/CRE Ratio 11 9-20 LAB CA(LOINC) Calcium 8.1 Low 8.6-10.4 mg/dL Performed By: #### CDP, MG, BMPX #### [facility] [address] [place] [address] [place] [address] Log Chain Worker: Dimas Chandler MD MAGNESIUM Collected: 6:10 AM Status: F Source: [facility] REPOSITORY TYPE CODE TESTS RESULT OUT OF RANGE REFERENCE UNITS LAB MG(LOINC) Magnesium 1.6 1.6-2.4 mg/dL Performed By: #### CDP, MG, BMPX #### [address] [place], [place] [id number] Log Chain Worker: Dimas Chandler MD CBC WITH DIFF Collected: 01/26/2025 5:30 AM Status: F Source: [facility] REPOSITORY TYPE CODE TESTS RESULT OUT OF RANGE REFERENCE UNITS LAB WBC(LOINC) WBC Count 6.0 3.5-11.3 k/uL LAB RBC(LOINC) RBC Count 2.99 Low 4.21-5.77 m/uL LAB HGB(LOINC) Hemoglobin 8.2 Low 13.0-17.0 g/dL LAB HCT(LOINC) Hematocrit 25.8 Low 40.7-50.3 % LAB MCV(LOINC) MCV 86.3 82.6-102.9 fL LAB MCH(LOINC) MCH 27.4 25.2-33.5 pg LAB MCHC(LOINC) MCHC 31.8 28.4-34.8 g/dL LAB RDW(LOINC) RDW 15.9 High 11.8-14.4 % LAB PLT(LOINC) Platelet Count 487 High 138-453 k/uL LAB MPVX(LOINC) MPV 10.7 8.1-13.5 fL LAB NRBCS(LOINC) NRBC Automated 0.0 0.0 per 100 WBC LAB SEG(LOINC) Neutrophil (Seg) 63 36-65 % LAB LYM(LOINC) Lymphocyte 26 24-43 % LAB MON(LOINC) Monocyte 8 3-12 % LAB EO(LOINC) Eosinophil 1 1-4 % LAB BASO(LOINC) Basophil 1 0-2 % LAB IGRAN(LOINC) Immature Granulocyte 1 High 0 % LAB ASEG(LOINC) Abs.Neutrophil (Seg) 3.73 1.50-8.10 k/uL LAB ALYM(LOINC) Abs. Lymph 1.53 1.10-3.70 k/uL LAB AMONO(LOINC) Abs. Monocyte 0.47 0.10-1.20 k/u L LAB AEO(LOINC) Abs. Eosinophil 0.08 0.00-0.44 k/u L LAB ABASO(LOINC) Abs. Basophil 0.06 0.00-0.20 k/u L LAB AIGRAN(LOINC) Abs.Imm.Granulo cyte 0.08 0.00-0.30 k/uL Performed By: #### BMPX, CDP , MG #### [facility] [address] [place] [address] Log Chain Worker: Dimas Chandler MD BASIC METAB W/RFX MG Collected: 025 5:30 AM Status: F Source: [facility] REPOSITORY TYPE CODE TESTS RESULT OUT OF RANGE REFERENCE UNITS LAB NA(LOINC) NA (Sodium) 141 136-145 mmol/L LAB K(LOINC) K (Potassium) 3.5 Low 3.7-5.3 mmol/L LAB CL(LOINC) Chloride 109 High 98-107 mmol/L LAB HCO(LOINC) CO2 21 20-31 mmol/L LAB GAP(LOINC) Anion Gap 11 9-16 mmol/L LAB GLU(LOINC) Glucose 105 High 74-99 mg/dL LAB BUN(LOINC) BUN (Urea N) 44 High 8-23 mg/dL LAB CRE(LOINC) Creatinine 3.2 High 0.70-1.20 mg/dL LAB EGFR(LOINC) eGFR 19 Low >60 mL/min/1 .73m2 Result Comment: These results are not intended for use in patients <18 years of age. eGFR results are calculated without a race factor using the 2020 CKD-EPI equation. Careful clinical correlation is recommended, particularly when comparing to results calculated using previous equations. The CKD-EPI equation is less accurate in patients with extremes of muscle mass, extra-renal metabolism of creatine, excessive creatine ingestion, or following therapy that affects renal tubular secretion. LAB BUNCRE(LOINC) BUN/CRE Ratio 14 9-20 LAB CA(LOINC) Calcium 8.2 Low 8.6-10.4 mg/dL Performed By: #### LUCIO CDP , MG #### [address] [place] [address] Log Chain Worker: Dimas Chandler MD MAGNESIUM Collected: 5:30 AM Status: F Source: [facility] REPOSITORY TYPE CODE TESTS RESULT OUT OF RANGE REFERENCE UNITS LAB MG(LOINC) Magnesium 1.8 1.6-2.4 mg/dL Performed By: #### BMPLashonda, CDP , MG #### [facility] [address] [place] [address] [place] [address] Log Chain Worker: Dimas Chandler MD CBC WITH DIFF Collected: 01/25/2025 5:45 AM Status: F Source: [facility] TYPE CODE TESTS RESULT OUT OF RANGE REFERENCE UNITS LAB WBC(LOINC) WBC Count 5.9 3.5-11.3 k/uL LAB RBC(LOINC) RBC Count 3.03 Low 4.21-5.77 m/uL LAB HGB(LOINC) Hemoglobin 8.3 Low 13.0-17.0 g/dL LAB HCT(LOINC) Hematocrit 26.1 Low 40.7-50.3 % LAB MCV(LOINC) MCV 86.1 82.6-102.9 fL LAB MCH(LOINC) MCH 27.4 25.2-33.5 pg LAB MCHC(LOINC) MCHC 31.8 28.4-34.8 g/dL LAB RDW(LOINC) RDW 16.0 High 11.8-14.4 % LAB PLT(LOINC) Platelet Count 511 High 138-453 k/uL LAB MPVX(LOINC) MPV 10.9 8.1-13.5 fL LAB NRBCS(LOINC) NRBC Automated 0.0 0.0 per 100 WBC LAB SEG(LOINC) Neutrophil (Seg) 63 36-65 % LAB LYM(LOINC) Lymphocyte 24 24-43 % LAB MON(LOINC) Monocyte 9 3-12 % LAB EO(LOINC) Eosinophil 2 1-4 % LAB BASO(LOINC) Basophil 1 0-2 % LAB IGRAN(LOINC) Immature Granulocyte 1 High 0 % LAB ASEG(LOINC) Abs.Neutrophil (Seg) 3.76 1.50-8.10 k/uL LAB ALYM(LOINC) Abs. Lymph 1.40 1.10-3.70 k/uL LAB AMONO(LOINC) Abs. Monocyte 0.52 0.10-1.20 k/u L LAB AEO(LOINC) Abs. Eosinophil 0.09 0.00-0.44 k/u L LAB ABASO(LOINC) Abs. Basophil 0.06 0.00-0.20 k/u L LAB AIGRAN(LOINC) Abs.Imm.Granulo cyte 0.05 0.00-0.30 k/uL Performed By: #### CDP, BMPX #### [facility] [address] [place] [address] Log Chain Worker: Dimas Chandler MD BASIC METAB W/RFX MG Collected: 025 5:45 AM Status: F Source: [facility] REPOSITORY TYPE CODE TESTS RESULT OUT OF RANGE REFERENCE UNITS LAB NA(LOINC) NA (Sodium) 143 136-145 mmol/L LAB K(LOINC) K (Potassium) 3.8 3.7-5.3 mmol/L LAB CL(LOINC) Chloride 110 High 98-107 mmol/L LAB HCO(LOINC) CO2 21 20-31 mmol/L LAB GAP(LOINC) Anion Gap 12 9-16 mmol/L LAB GLU(LOINC) Glucose 99 74-99 mg/dL LAB BUN(LOINC) BUN (Urea N) 69 High 8-23 mg/dL LAB CRE(LOINC) Creatinine 4.3 High 0.70-1.20 mg/dL LAB EGFR(LOINC) eGFR 13 Low >60 mL/min/1 .73m2 Result Comment: These results are not intended for use in patients <18 years of age. eGFR results are calculated without a race factor using the 2020 CKD-EPI equation. Careful clinical correlation is recommended, particularly when comparing to results calculated using previous equations. The CKD-EPI equation is less accurate in patients with extremes of muscle mass, extra-renal metabolism of creatine, excessive creatine ingestion, or following therapy that affects renal tubular secretion. LAB BUNCRE(LOINC) BUN/CRE Ratio 16 9-20 LAB CA(LOINC) Calcium 8.4 Low 8.6-10.4 mg/dL Performed By: #### CDP, BMPX #### [facility] [address] [place] [address] Log Chain Worker: Dimas Chandler MD B12/FOLATE PANEL Collected: 5 5:45 AM Status: F Source: [facility] REPOSITORY TYPE CODE TESTS RESULT OUT OF RANGE REFERENCE UNITS LAB B12(LOINC) Vitamin B12 >2000 High 232-1245 pg/mL LAB FOL(LOINC) Folic Acid 17.6 4.8-24.2 ng/mL Performed By: #### B12FOL ## ## [facility] [address] [place] [address] Log Chain Worker: David Tate MD RETIC COUNT Collected: 5 5:45 AM Status: F Source: [facility] REPOSITORY TYPE CODE TESTS RESULT OUT OF RANGE REFERENCE UNITS LAB RET(LOINC) Retic Count 0.4 Low 0.5-1.9 % LAB ABRET(LOINC) Absolute Retic 0.013 Low 0.030-0.080 M/uL LAB IRF(LOINC) IRF 3.6 2.7-18.3 % LAB RHGB(LOINC) Retic Hemoglobin 24.5 Low 28.2-35.7 pg Performed By: #### RETCT ### # [address] [place] [address] Log Chain Worker: Dimas Chandler MD #### HAPT, FEBC #### [address] [address] Log Chain Worker: David Tate MD IRON BINDING CAP. Collected: 01/25/2025 5:45 AM Stat us: F Source: [facility] TYPE CODE TESTS RESULT OUT OF RANGE REFERENCE UNITS LAB FE(LOINC) Iron 31 Low 61-157 ug/dL LAB TIBC(LOINC) Total Fe Binding Cap 191 Low 250-450 ug/dL LAB FESAT(LOINC) % Fe Saturation 16 Low 20-55 % LAB UIBC(LOINC) Unbound Fe Bind Cap 160 112-347 ug/dL Performed By: #### RETCT ### # [address] [place] [id number] Log Chain Worker: Dimas Chandler MD #### HAPT, FEBC #### [address] [address] Log Chain Worker: David Tate MD HAPTOGLOBIN Collected: 5:45 AM Status: F Source: [facility] TYPE CODE TESTS RESULT OUT OF RANGE REFERENCE UNITS LAB HAPT(LOINC) Haptoglobin 347 High 30-200 mg/dL Performed By: #### RETCT ### # [address] [place] [address] Log Chain Worker: Dimas Chandler MD #### HAPT, FEBC #### [address] [address] Log Chain Worker: David Tate MD CULT, BLOOD Observed: 01/24/2025 10:09 PM Status: F Source: [facility] REPOSITORY Specimen Description .BLOOD Special Requests RIGHT ARM, 20ML, DS Culture NO GROWTH 5 DAYS Report Status FINAL 01/29/2025 Performed By: #### BCUL2 ### # [facility] [address] [place] [address] Log Chain Worker: Dimas Chandler MD CULT,BLOOD Observed: 01/24/2025 10:03 PM Status: F Source: [facility] REPOSITORY Specimen Description .BLOOD Special Requests LEFT ARM, 20ML, DS Culture NO GROWTH 5 DAYS Report Status FINAL 01/29/2025 Performed By: #### BC #### [facility] [address] [place] [address] Log Chain Worker: Dimas Chandler MD CT ABDOMEN PELVIS WO CONTRAST Observed: 01/24/2025 2:26 PM Status: F Source: [facility] REPOSITORY EXAMINATION: CT OF THE ABDOMEN AND PELVIS WITHOUT CONTRAST 01/24/2025 12:53 pm TECHNIQUE: CT of the abdomen and pelvis was performed without the administration of intravenous contrast. Multiplanar reformatted images are provided for review. Automated exposure control, iterative reconstruction, and/or weight based adjustment of the mA/kV was utilized to reduce the radiation dose to as low as reasonably achievable. COMPARISON: None. HISTORY: ORDERING SYSTEM PROVIDED HISTORY: Acute renal failure TECHNOLOGIST PROVIDED HISTORY: Acute renal failure Decision Support Exception - unselect if not a suspected or confirmed emergency medical condition->Emergency Medical Condition (MA) FINDINGS: Lower Chest: There is no airspace consolidation or pleural effusion. Organs: There are scattered hepatic cysts. The gallbladder is unremarkable there is no biliary dilatation. The spleen, adrenal glands and pancreas are unremarkable. There is moderate bilateral hydronephrosis and hydroureter which extends to the bladder. No ureteral stone is identified. GI/Bowel: No bowel dilatation or bowel wall thickening is identified. No evidence of appendicitis. The stomach is unremarkable. There is a normal amount of stool in the colon. Pelvis: There is moderate amount of stool in the rectum with mild to moderate rectal distension. Prostate gland is mildly enlarged measuring 4.9 cm. The bladder is severely distended extending to the level of the umbilicus. Is no free fluid. Peritoneum/Retroperitoneum: No evidence of lymphadenopathy. Aorta is normal in caliber. No fat stranding, free fluid, free air or focal fluid collection is identified. Bones/Soft Tissues: No fracture or suspicious bone lesion is identified. IMPRESSION: 1. Severely distended bladder extending to the level of the umbilicus with moderate bilateral hydronephrosis and hydroureter which is likely related. No ureteral stone is identified. The findings suggest bladder outlet obstruction. 2. Mild prostatomegaly. 3. Moderate amount of stool in the rectum with mild to moderate rectal distension. Interpreted by: Nicolas Chaudhary MD Signed by: Nicolas Chaudhary MD 01/24/25 Final result UA W/REFLEX CULTURE Collected: 01/25/20 12:54 PM Status: F Source: [facility] REPOSITORY TYPE CODE TESTS RESULT OUT OF RANGE REFERENCE UNITS LAB UCO(LOINC) Color Yellow YEL LAB UTU(LOINC) Clarity, Urine SLIGHTLY CLOUDY Abnormal CLEAR LAB UGL(LOINC) Glucose,Semi- qnt,Ur NEGATIVE NEG mg/dL LAB UBI(LOINC) Bilirubin, SemiQt,Ur NEGATIVE NEG LAB UKE(LOINC) Ketones, Urine NEGATIVE NEG mg/dL LAB USG(LOINC) Spec. [place],Ur 1.015 1.010-1.020 LAB UHB(LOINC) Blood, Urine 2+ Abnormal NEG LAB UPH(LOINC) PH,Ur 7.5 5.0-9.0 LAB UPR(LOINC) Protein, Semi-qnt,Ur 2+ Abnormal NEG mg/dL LAB UUR(LOINC) Urobilinogen, Ur Normal 0.0-1.0 EU/dL LAB UNI(LOINC) Nitrite,Ur POSITIVE Abnormal NEG LAB ULE(LOINC) Leukocyte Esterase MODERATE Abnormal NEG Performed By: #### UAX, UMIC AO #### [facility] [address] [place] [address] Log Chain Worker: Dimas Chandler MD URINALYSIS,MICRO Collected: 12:54 PM Status: F Source: [facility] REPOSITORY TYPE CODE TESTS RESULT OUT OF RANGE REFERENCE UNITS LAB UWBC(LOINC) Urine WBC's 10 TO 20 0-5 /HPF LAB URBC(LOINC) Urine RBC's 0 TO 2 0-2 /HPF LAB EPITH(LOINC) Epithelial cells None 0-5 /HPF LAB BACT(LOINC) Bacteria 2+ Abnormal NONE LAB UCOM(LOINC) Other Observations Urine Reflexed to Culture Abnormal NREQ Performed By: #### UAX, IC AO #### [facility] [address] [place] [address] Log Chain Worker: Dimas Chandler MD CULT,URINE Observed: 01/24/2025 12:54 PM Status: F Source: [facility] REPOSITORY Specimen Description .URINE Culture CITROBACTER BRAAKII 10 to 50,000 CFU/ML MORGANELLA MORGANII 10 to 50,000 CFU/ML Report Status FINAL 01/29/2025 SUSCEPTIBILITY Organism CITROBACTER BRAAKII Method YECENIA Cefazolin >=64 RESISTANT Ceftriaxone <=0.25 SUSCEPTIBLE Gentamicin <=1 SUSCEPTIBLE Levofloxacin <=0.12 SUSCEPTIBLE Piperacillin/Tazobactam <=4 SUSCEPTIBLE Tobramycin <=1 SUSCEPTIBLE Trimethoprim/Sulfa <=20 SUSCEPTIBLE SUSCEPTIBILITY Organism MORGANELLA MORGANII Method YECENIA Ampicillin >=32 RESISTANT Cefazolin >=64 RESISTANT Gentamicin <=1 SUSCEPTIBLE Levofloxacin <=0.12 SUSCEPTIBLE Piperacillin/Tazobactam <=4 SUSCEPTIBLE Tobramycin <=1 SUSCEPTIBLE Trimethoprim/Sulfa <=20 SUSCEPTIBLE SUSCEPTIBILITY Organism MORGANELLA MORGANII Method E YECENIA Cefepime .032 SUSCEPTIBLE SUSCEPTIBILITY Organism MORGANELLA MORGANII Method HERNANDEZ MEADE Ceftriaxone SUSCEPTIBLE Performed By: #### [facility] [place] #### [facility] [address] [place], [place] [id number] Log Chain Worker: David Tate MD CBC WITH DIFF Collected: 12:51 PM Status: F Source: [facility] REPOSITORY TYPE CODE TESTS RESULT OUT OF RANGE REFERENCE UNITS LAB WBC(LOINC) WBC Count 7.8 3.5-11.3 k/uL LAB RBC(LOINC) RBC Count 3.42 Low 4.21-5.77 m/uL LAB HGB(LOINC) Hemoglobin 9.2 Low 13.0-17.0 g/dL LAB HCT(LOINC) Hematocrit 28.9 Low 40.7-50.3 % LAB MCV(LOINC) MCV 84.5 82.6-102.9 fL LAB MCH(LOINC) MCH 26.9 25.2-33.5 pg LAB MCHC(LOINC) MCHC 31.8 28.4-34.8 g/dL LAB RDW(LOINC) RDW 16.1 High 11.8-14.4 % LAB PLT(LOINC) Platelet Count 547 High 138-453 k/uL LAB MPVX(LOINC) MPV 10.6 8.1-13.5 fL LAB NRBCS(LOINC) NRBC Automated 0.0 0.0 per 100 WBC LAB SEG(LOINC) Neutrophil (Seg) 73 High 36-65 % LAB LYM(LOINC) Lymphocyte 17 Low 24-43 % LAB MON(LOINC) Monocyte 7 3-12 % LAB EO(LOINC) Eosinophil 2 1-4 % LAB BASO(LOINC) Basophil 1 0-2 % LAB IGRAN(LOINC) Immature Granulocyte 1 High 0 % LAB ASEG(LOINC) Abs.Neutrophil (Seg) 5.70 1.50-8.10 k/uL LAB ALYM(LOINC) Abs. Lymph 1.33 1.10-3.70 k/uL LAB AMONO(LOINC) Abs. Monocyte 0.54 0.10-1.20 k/u L LAB AEO(LOINC) Abs. Eosinophil 0.15 0.00-0.44 k/u L LAB ABASO(LOINC) Abs. Basophil 0.04 0.00-0.20 k/u L LAB AIGRAN(LOINC) Abs.Imm.Granulo cyte 0.07 0.00-0.30 k/uL Performed By: #### PT, CDP, CP #### [facility] [address] [place] [address] Log Chain Worker: Dimas Chandler MD PT Collected: 12:51 PM Status: F Source: [facility] REPOSITORY TYPE CODE TESTS RESULT OUT OF RANGE REFERENCE UNITS LAB PTR(LOINC) Prothrombin Time 14.1 11.7-14.1 sec LAB INR(INC) INR 1.1 Result Comment: Therapeutic Range: Moderate Anticoagulant Intensity: INR = 2.0-3.0 High Anticoagulant Intensity: INR = 2.5-3.5 Performed By: #### PT, CDP, CP #### [facility] [address] [place] [address] Log Chain Worker: Dimas Chandler MD COMP METABOLIC PROF Collected: 01/25/20 12:51 PM Status: F Source: [facility] REPOSITORY TYPE CODE TESTS RESULT OUT OF RANGE REFERENCE UNITS LAB NA(LOINC) NA (Sodium) 139 136-145 mmol/L LAB K(LOINC) K (Potassium) 3.7 3.7-5.3 mmol/L LAB CL(LOINC) Chloride 103 98-107 mmol/L LAB HCO(LOINC) CO2 22 20-31 mmol/L LAB GAP(LOINC) Anion Gap 14 9-16 mmol/L LAB GLU(LOINC) Glucose 118 High 74-99 mg/dL LAB BUN(LOINC) BUN (Urea N) 80 High 8-23 mg/dL LAB CRE(LOINC) Creatinine 5.4 High alert 0.70-1.20 mg/dL LAB EGFR(LOINC) eGFR 10 Low >60 mL/min/1 .73m2 Result Comment: These results are not intended for use in patients <18 years of age. eGFR results are calculated without a race factor using the 2020 CKD-EPI equation. Careful clinical correlation is recommended, particularly when comparing to results calculated using previous equations. The CKD-EPI equation is less accurate in patients with extremes of muscle mass, extra-renal metabolism of creatine, excessive creatine ingestion, or following therapy that affects renal tubular secretion. LAB BUNCRE(LOINC) BUN/CRE Ratio 15 9-20 LAB CA(LOINC) Calcium 9.1 8.6-10.4 mg/dL LAB TP(LOINC) Protein, Total 7.8 6.6-8.7 g/dL LAB ALB(LOINC) Albumin 3.2 Low 3.5-5.2 g/dL LAB AG(LOINC) Albumin/Glob Ratio 0.7 Low 1.0-2.5 LAB TBIL(LOINC) Bilirubin, Total 0.3 0.00-1.20 mg/dL LAB ALP(LOINC) Alkaline Phos 94 40-129 U/L LAB ALT(LOINC) ALT 16 10-50 U/L LAB AST(LOINC) AST 20 10-50 U/L Performed By: #### PT, CDP, CP #### [facility] [address] [place] [address] Log Chain Worker: Dimas Chandler MD COMP METABOLIC PROF Collected: 01/25/20 7:10 AM Status: F Source: [facility] REPOSITORY TYPE CODE TESTS RESULT OUT OF RANGE REFERENCE UNITS LAB NA(LOINC) NA (Sodium) 140 136-145 mmol/L LAB K(LOINC) K (Potassium) 3.7 3.7-5.3 mmol/L LAB CL(LOINC) Chloride 105 98-107 mmol/L LAB HCO(LOINC) CO2 20 20-31 mmol/L LAB GAP(LOINC) Anion Gap 15 9-16 mmol/L LAB GLU(LOINC) Glucose 107 High 74-99 mg/dL LAB BUN(LOINC) BUN (Urea N) 85 High 8-23 mg/dL LAB CRE(LOINC) Creatinine 5.6 High alert 0.70-1.20 mg/dL LAB EGFR(LOINC) eGFR 10 Low >60 mL/min/1 .73m2 Result Comment: These results are not intended for use in patients <18 years of age. eGFR results are calculated without a race factor using the 2020 CKD-EPI equation. Careful clinical correlation is recommended, particularly when comparing to results calculated using previous equations. The CKD-EPI equation is less accurate in patients with extremes of muscle mass, extra-renal metabolism of creatine, excessive creatine ingestion, or following therapy that affects renal tubular secretion. LAB BUNCRE(LOINC) BUN/CRE Ratio 15 9-20 LAB CA(LOINC) Calcium 8.8 8.6-10.4 mg/dL LAB TP(LOINC) Protein, Total 7.2 6.6-8.7 g/dL LAB ALB(LOINC) Albumin 3.1 Low 3.5-5.2 g/dL LAB AG(LOINC) Albumin/Glob Ratio 0.8 Low 1.0-2.5 LAB TBIL(LOINC) Bilirubin, Total 0.3 0.00-1.20 mg/dL LAB ALP(LOINC) Alkaline Phos 98 40-129 U/L LAB ALT(LOINC) ALT 14 10-50 U/L LAB AST(LOINC) AST 21 10-50 U/L Performed By: #### CP #### [facility] [address] [place] [address] Log Chain Worker: Dimas Chandler MD FLU A/B AG DETECTION Collected: 10:35 PM Status: F Source: [facility] REPOSITORY TYPE CODE TESTS RESULT OUT OF RANGE REFERENCE UNITS LAB FLUAAG(LOINC) Flu A Ag Detection NEGATIVE NEG Result Comment: for Influenz a A Antigen LAB FLUBAG(LOINC) Flu B Ag Detection NEGATIVE NEG Result Comment: for Influenz a B Antigen. Performed By: #### FLUABA ## ## [facility] [address] [place] [address] [place] [address] Log Chain Worker: Dimas Chandler MD CULT,URINE Observed: 01/22/2025 4:45 PM Status: F Source: [facility] REPOSITORY Specimen Description .VOIDED URINE Culture CITROBACTER FREUNDII >100,000 CFU/ML Identification by MALDI-TOF MORGANELLA MORGANII >100,000 CFU/ML Identification by MALDI-TOF Report Status FINAL 01/26/2025 SUSCEPTIBILITY Organism MORGANELLA MORGANII Method YECENIA Ampicillin >=32 RESISTANT Gentamicin <=1 SUSCEPTIBLE Levofloxacin <=0.12 SUSCEPTIBLE Nitrofurantoin 64 RESISTANT Piperacillin/Tazobactam <=4 SUSCEPTIBLE Tobramycin <=1 SUSCEPTIBLE Trimethoprim/Sulfa <=20 SUSCEPTIBLESUSCEPTIBILITY Organism MORGANELLA MORGANII Method HERNANDEZ MEADE Ceftriaxone SUSCEPTIBLE SUSCEPTIBILITY Organism CITROBACTER FREUNDII Method YECENIA Ceftriaxone <=0.25 SUSCEPTIBLE Gentamicin <=1 SUSCEPTIBLE Levofloxacin <=0.12 SUSCEPTIBLE Nitrofurantoin <=16 SUSCEPTIBLE Piperacillin/Tazobactam <=4 SUSCEPTIBLE Tobramycin <=1 SUSCEPTIBLE Trimethoprim/Sulfa <=20 SUSCEPTIBLE Performed By: #### [facility] #### [address] [address] Log Chain Worker: Dvaid Tate MD [facility] [address] [place] [address] [place] [address] Log Chain Worker: Dimas Chandler MD UA W/REFLEX CULTURE Collected: 01/23/20 4:45 PM Status: F Source: [facility] REPOSITORY TYPE CODE TESTS RESULT OUT OF RANGE REFERENCE UNITS LAB UCO(LOINC) Color Yellow YEL LAB UTU(LOINC) Clarity, Urine Cloudy Abnormal CLEAR LAB UGL(LOINC) Glucose,Semi- qnt,Ur NEGATIVE NEG mg/dL LAB UBI(LOINC) Bilirubin, SemiQt,Ur NEGATIVE NEG LAB UKE(LOINC) Ketones, Urine NEGATIVE NEG mg/dL LAB [facility] Spec. [place],Ur 1.015 1.010-1.020 LAB UHB(LOINC) Blood, Urine 3+ Abnormal NEG LAB UPH(LOINC) PH,Ur 8.5 5.0-9.0 LAB UPR(LOINC) Protein, Semi-qnt,Ur 2+ Abnormal NEG mg/dL LAB UUR([facility]) Urobilinogen, Ur Normal 0.0-1.0 EU/dL LAB UNI(LOINC) Nitrite,Ur NEGATIVE NEG LAB ULE([facility]) Leukocyte Esterase LARGE Abnormal NEG Performed By: #### UAX, [facility] #### [facility] [address] [place] [address] Log Chain Worker: Dimas Chandler MD URINALYSIS,MICRO Collected: 5 4:45 PM Status: F Source: [facility] REPOSITORY TYPE CODE TESTS RESULT OUT OF RANGE REFERENCE UNITS LAB UWBC([facility]) Urine WBC's 50 TO 100 0-5 /HPF LAB URBC(LOINC) Urine RBC's 5 TO 10 0-2 /HPF LAB MELISSA([facility]) Crystals 20 TO 50 Abnormal NONE /HPF Result Comment: TRIPLE PHOSP HATE LAB EPITH(LOINC) Epithelial cells 0 TO 2 0-5 /HPF LAB BACT(LOINC) Bacteria 4+ Abnormal NONE LAB AMORPH(LOINC) Amorphous Sediment 2+ Abnormal NONE LAB UCOM([facility]) Other Observations Urine Reflexed to Culture Abnormal NREQ Performed By: #### [facility]AX, [facility] #### [facility] [address] [place] [address] Log Chain Worker: Dimas Chandler MD CBC Collected: 5 7:10 AM Status: F Source: [facility] REPOSITORY TYPE CODE TESTS RESULT OUT OF RANGE REFERENCE UNITS LAB WBC(LOINC) WBC Count 30.1 High 3.5-11.3 k/uL LAB RBC(LOINC) RBC Count 3.46 Low 4.21-5.77 m/uL LAB HGB(LOINC) Hemoglobin 9.5 Low 13.0-17.0 g/dL LAB HCT(LOINC) Hematocrit 29.2 Low 40.7-50.3 % LAB MCV(LOINC) MCV 84.4 82.6-102.9 fL LAB MCH(LOINC) MCH 27.5 25.2-33.5 pg LAB MCHC(LOINC) MCHC 32.5 28.4-34.8 g/dL LAB RDW(LOINC) RDW 15.3 High 11.8-14.4 % LAB PLT(LOINC) Platelet Count 494 High 138-453 k/uL LAB MPVX(LOINC) MPV 10.5 8.1-13.5 fL LAB NRBCS(LOINC) NRBC Automated 0.0 0.0 per 100 WBC Performed By: #### LIPR #### [facility] [address] [place] [address] Log Chain Worker: David Tate MD #### CBC, [facility] #### [facility] [address] [place] [address] Log Chain Worker: Dimas Chandler MD BASIC METABOLIC PROF Collected: 025 7:10 AM Status: F Source: [facility] REPOSITORY TYPE CODE TESTS RESULT OUT OF RANGE REFERENCE UNITS LAB NA(LOINC) NA (Sodium) 140 136-145 mmol/L LAB K(LOINC) K (Potassium) 4.1 3.7-5.3 mmol/L LAB CL(LOINC) Chloride 105 98-107 mmol/L LAB HCO(LOINC) CO2 20 20-31 mmol/L LAB GAP(LOINC) Anion Gap 15 9-16 mmol/L LAB GLU(LOINC) Glucose 141 High 74-99 mg/dL LAB BUN(LOINC) BUN (Urea N) 39 High 8-23 mg/dL LAB CRE(LOINC) Creatinine 3.4 High 0.70-1.20 mg/dL LAB EGFR(LOINC) eGFR 18 Low >60 mL/min/1 .73m2 Result Comment: These results are not intended for use in patients <18 years of age. eGFR results are calculated without a race factor using the 2020 CKD-EPI equation. Careful clinical correlation is recommended, particularly when comparing to results calculated using previous equations. The CKD-EPI equation is less accurate in patients with extremes of muscle mass, extra-renal metabolism of creatine, excessive creatine ingestion, or following therapy that affects renal tubular secretion. LAB BUNCRE(LOINC) BUN/CRE Ratio 11 9-20 LAB CA(LOINC) Calcium 9.1 8.6-10.4 mg/dL Performed By: #### LIPR #### [facility] [address] [place], [place] [id number] Log Chain Worker: David Tate MD #### CBC, BMP #### [address] [place] [address] Log Chain Worker: Dimas Chandler MD LIPID PROFILE Collected: 01/21/2025 7:10 AM Status: F Source: [facility] REPOSITORY TYPE CODE TESTS RESULT OUT OF RANGE REFERENCE UNITS LAB CHOL(LOINC) Cholesterol 183 0-199 mg/dL Result Comment: Cholesterol Guidelines: <200 Desirable 200-240 Borderline >240 Undesirable LAB HDL(LOINC) Cholesterol,HDL 43 >40 mg/dL Result Comment: HDL Guidelines: <40 Undesirable 40-59 Borderline >59 Desirable LAB LDL(LOINC) Cholesterol,LDL 118 High 0-100 mg/dL Result Comment: LDL Guidelines: <100 Desirable 100-129 Near to/above Desirable 130-159 Borderline >159 Undesirable Direct (measured) LDL and calculated LDL are not interchangeable tests. LAB CHR(LOINC) Chol/HDL Ratio 4.3 LAB TRIG(LOINC) Triglycerides 109 <150 mg/dL Result Comment: Triglyceride Guidelines: <150 Desirable 150-199 Borderline 200-499 High >499 Very high Based on AHA Guidelines for fasting triglyceride, August 2012. LAB VLDL(LOINC) Cholesterol,VLDL 22 1-30 mg/ dL Performed By: #### LIPR #### [facility] [employer] [facility] [place], [place] [id number] Log Chain Worker: David Tate MD #### CBC, BMP #### [address] [place] [address] Log Chain Worker: Dimas Chandler MD URINE CULTURE Observed: 12/27/2024 4:15 PM Status: F Source: [facility] REPOSITORY ORGANISM: Morganella morgani i (O:MORMOR) [place] Count >100,000 ORGANISM: Corynebacterium species (O:CORSPE) [place] Count 75,000 Organism Comments Organism not Routinely Tested for Susceptibilities Organism #2 identified as Corynebacterium familia. Aerobic YECENIA Charge (NMIC56) SUSCEPTIBILITY ORGANISM: O:MORMOR ANTIBIOTIC INTERPRETATION YECENIA Amikacin S <16 Ampicillin/Sulbactam I 1616/8 Aztreonam IB <4 Cefepime S <2 Ceftazidime IB <1 Ceftazidime/Avibactam S <4 Ceftolozane/Tazobactam S <2 Ceftriaxone IB <1 Ciprofloxacin S <0.25 Ertapenem S <0.5 Gentamicin S <2 Levofloxacin S <0.5 Meropenem S <1 Meropenem/Vaborbactam S <2 Piperacillin/Tazobactam IB <8 Tetracycline R >8 Tobramycin S <2 Trimethoprim/Sulfamethoxazole S <0.5 S = SUSCEPTIBLE I = INTERMEDIATE R = RESISTANT BLANK = DATA NOT AVAILABLE, OR DRUG NOT ADVISABLE OR TESTED R* = RESISTANCE DUE TO EXTENDED SPECTRUM BETA-LACTAMASES ESBL = EXTENDED SPECTRUM BETA-LACTAMASE TFG = THYMIDINE-DEPENDENT STRAIN WHITLEY = BETA-LACTAMASE POSITIVE IB = INDUCIBLE BETA-LACTAMASE. APPEARS IN PLACE OF 'S' WITH SPECIES KNOWN TO POSSESS INDUCIBLE BETA-LACTAMASES. POTENTIALLY THEY MAY BECOME RESISTANT TO ALL B-LACTAM DRUGS. PERFORMED BY: [place] [address] PATHOLOGIST [employer]OPLESO[employer] DEVELOPER RISSA CARVALHO M.D. Performed By: #### CUU #### [place] [address] [place] ALLERGIES DATE TYPE / CODE NAME / CODE REACTION SEVERITY SOURCE 12/28/2024 Drug Allergy/[id number] (SNOMED CT) No Known Allergies/[id number](RXNORM) Unknown [facility] ENCOUNTERS ADMIT/DISCHARGE ACCOUNT NUMBER ADMITTING ENCOUNTER CLASS LOCATION SOURCE 01/24/2025/01/28/20 [id number] KENN MOYA [facility] 01/24/2025/01/25/20 [id number] Ambulatory Building:[facility] 01/22/2025/01/23/20 [id number] Ambulatory Building:[facility] 01/21/2025/01/22/20 [id number] Ambulatory Building:[facility] 12/27/2024/12/27/19 [id number] [facility] PAYERS ENCOUNTER GUARANTOR PAYER SUBSCRIBER SOURCE 01/24/2025 DENIZ ZUNIGA: [address] [place] [address]Zfx: (HP) Primary Insurance:MEDICAREPo licy Number: [id number] Date:[id number] [address], [place] [address]NW: DENIZ ZUNIGA: [id number] [address]Wyw: (HP) [facility] 01/24/2025 Secondary Insurance:[facility] [place] Number: [id number] Date: [employer] [place], [place] [address]BE: DENIZ ZUNIGA: [id number] [address]Kop: (HP) [facility] 01/22/2025 DENIZ ZUNIGA: [address] [place] [address]Wvh: (HP) Primary Insurance:MEDICAREPo licy Number: [id number] Date:[id number] [address], [place] [address]GY: DENIZ GOMEZDOB: [id number] [address] , [place] [address]Ddy: () [facility] 12/27/2024 Deniz Gomez[address] [place] [address]Suf: () Primary Insurance:Self PayPolicy Number: Effective Date:2024-12-27 NOT GIVENUNK [facility]
[2025-02-03 19:58] LABS: Alanine Aminotransferase 19 U/L (16-63); Albumin Globulin Ratio 0.5; Albumin Level 2.5 g/dL (3.4-5.0); Alkaline Phosphatase 73 U/L (46-116); Anion Gap 14.6; Aspartate Amino Transferase 17 U/L (15-37); BUN Creatinine Ratio 6.9; Bilirubin Direct 0.1 mg/dL (0.0-0.2); Bilirubin Total 0.2 mg/dL (0.2-1.0); Calcium 8.5 mg/dL (8.5-10.1); Carbon Dioxide 23.7 mmol/L (21.0-32.0); Chloride 101 mmol/L (98-107); Estimated GFR (African America 23 (>=60 mL/min/1.73m^2); Estimated GFR (Non-African Ame 19 (>=60 mL/min/1.73m^2); Ethanol <3 mg/dL; Globulin 4.8 g/dL; Glucose 134 mg/dL (74-106); Potassium 4.3 mmol/L (3.5-5.1); Salicylate <2.8 mg/dL (<=19.9); Sodium 135 mmol/L (136-145); Total Protein 7.3 g/dL (6.4-8.2)
[2025-02-03 19:59] LABS: Acetaminophen <2.0 ug/mL (10.0-30.0)
--- NOTE | 2025-02-03 20:19 | PC.NURSE ---
Patient spoke to hopechema. hopeline does not have any concerns at this time they are going to reach out to the [facility] and call ED back
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
--- NOTE | 2025-02-03 21:43 | PC.NURSE ---
Isaiah called back and cleared patient to go back to [facility]. Stated they will follow up with his RN tomorrow.
[2025-02-03] MEDS: HYDROXYZINE HCL 25 MG TABLET PO (21:57)
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
== END 2025-02-03 23:26 | disposition still patient (30) ==
PROVIDERS: Emergency Provider Emergency Medicine; PCP Internal Medicine
DX: F91.9 Conduct disorder, unspecified (principal); Z79.899 Other long term (current) drug therapy
CPT/HCPCS: 36415; 70450; 71045; 80048; 80076; 80179; 80307; 80320; 80329; 81001; 85025; 93005; 99285

== ENCOUNTER 2025-02-05 06:51 | Emergency (ER) | payer MEDICARE, OTHER, SELFPAY ==
[2025-02-05] VITALS (119 sets, daily range): BP systolic 118–200; BP diastolic 78–132; PULSE 65–94; TEMP 36.9; O2SAT 96–100; BMI 19.2
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
--- OUTSIDE RECORDS SUMMARY | 2025-02-05 06:56 | XMS_ITS | CCD ---
Author Organization [facility] Care Team Providers Care Life Skills Worker Name Role Phone Unavailable Primary Care Provider UnavailROHITH Flores Attending Unavailable RUSTY ROONEY Admitting Unavailable SELF, REFERRED Referring Unavailable SELF, REFERRED Primary Care Unavailable DC Procedure Practitioner Unavailab GHADA Zacarias Surgeon Unavailable ROHITH BARAHONA Surgeon Unavailable DC Procedure Practitioner Unavailab le MARJORIE, JEFFRY S Referring Unavailable MARJORIE, JEFFRY S Referring Unavailable MARJORIE, JEFFRY S Referring Unavailable MARJORIE, JEFFRY S Referring Unavailable MARJORIE, JEFFRY S Referring Unavailable MARJORIE, JEFFRY S Referring Unavailable MARJORIE, JEFFRY S Referring Unavailable MARJORIE, JEFFRY S Referring Unavailable DR SOHAM WILSON Primary Care Unavailable ALALN HAENY Admitting Unavailable ALLAN HANEY Attending Unavailable ALFREDA, DR DIOR Mosher Consulting Unavailable ALLAN HANEY Consulting Unavailable JASPAL GARCÍA Consulting Unavailable JANICE WOODS Consulting Unavailable Floyd Rubi Unavailable Thu Figueroa Unavailable DO Floyd Rubi Attending Provider NO FAMILY, PHYSICIAN Primary Care Provider Unava ilable Bonita Ni Unavailable Soham Wilson Unavailable NONE, XXXX Primary Care Physician Unavailab ANDREA Ferrera Attending Unavailab Soham Wood DO Primary Care Provider Stephanie Sarmiento PA-C Attending Provider [phone] Soham Wilson Primary Care Unavailable Stephanie Sarmiento Attending Unavailable Stephanie Sarmiento Admitting Unavailable Unavailable Primary Care Provider UnavailKATHY Lorenz Referring Unavailable ARNULFO ROONEY Referring Unavailable VITOR RAMOS Consulting Unavailable KENN MOYA Admitting Unavailable KENN MOYA Attending Unavailable LIV OROZCO Consulting Unavailable ATILIO BASS Referring Unavailable Allergies Allergy Classification Reported Allergen(s) Allergy Type Date of Onset Reaction(s) Facility (1 source) No Known Medication Allergies; Translations: [No Known Medication Allergies] Propensity to adverse reactions (disorder) [facility] Repository Medications Current Medications Medication Drug Class(es) Dates Sig (Normalized) Sig (Original) Acetaminophen (15 sources) Start: 01-24-2025 acetaminophen (TYLENOL) tablet 650 mg take 1 tablet by key th every six hours as needed for pain acetaminophen (TYLENOL) 500 MG tablet Ta ke 1 tablet by mouth every 6 hours as needed for Pain Active Tylenol Not-Taki ng/PRN Tylenol Not-Taki ng Tylenol Active cefTRIAXone (ROCEPHIN) 1,000 mg in sterile water 10 mL IV syringe (2 sources) Start: 01-25-2025 End: 01-30-2025 take 100 mg intravenously every twenty-four hours 1,000 mg, IntraVENous, EVERY 24 HOURS, First dose on Fri01/25/25 at 1400, For 5 days, Administer as slow IV Push over 5 mins Reconstitute 1 g vials with 9.6 mL of designated diluent to produce a 100 mg/mL solution. Start: 01-24-2025 End: 01-24-2025 take 100 mg intravenously once 1,000 mg, IntraVENous, ONCE, On Fri01/24/25 at 1345, For 1 dose, Administer as slow IV Push over 5 mins Reconstitute 1 g vials with 9.6 mL of designated diluent to produce a 100 mg/mL solution. Centrum (2 sources) Start: 11-15-2020 Centrum Oral, Daily Start Date: 11/15/20 Status: Ordered cephalexin 500 mg oral capsule (1 source) Cephalosporin Antibacterial Start: 01-27-2025 End: 02-06-2025 take 1 capsule by mouth three times daily cephALEXin (KEFLEX) 500 MG capsule Take 1 capsule by mouth 3 times daily for 10 days 30 capsule 01/27/2025 02/06/2025 Active ciprofloxacin 500 mg oral tablet (2 sources) Quinolone Antimicrobial Start: 12-10-2023 Cipro 500 mg Tab See Instructions, Take 1 tab day prior to procedure and 1 tab day of procdure - afterwards, # 2 tab(s), Refills(s) 0, Pharmacy: [facility] 1155, 177, cm, 12/03/23 15:04:00 EST, Height/Length Dosing, 66.5, kg, 12/03/23 15:04:00 EST, Weight Dosing Start Date: 12/10/23 Status: Ordered End: 01-24-2025 take 1 tablet by mouth twice daily ciprofloxacin (CIPRO) 250 MG tablet Take 1 tablet by mouth 2 times daily 01/24/2025 Discontinued (LIST CLEANUP) cloNIDine hydrochloride 0.1 mg oral tablet (16 sources) Central alpha-2 Adrenergic Agonist Start: 05-04-2024 End: 08-16-2024 take 1 tablet by mouth twice daily Clonidine Hcl 0.1 mg tablet Active 0.1 MG PO Twice daily 60 August 16, 2024 2:19pm Start: 12-03-2023 End: 05-04-2024 take 1 tablet by mouth once daily at bedtime Clonidine Hcl 0.1 mg tablet Discontinued 0.1 MG PO Daily at bedtime February 02, 2024 11:00pm May 04, 2024 12:51pm Start: 10-10-2023 take 1 tablet by key th every twelve hours cloNIDine HCl 0.1 MG 1 tablet Orally bid for 30 days Oct, Active docusate sodium 100 mg oral capsule (12 sources) Start: 01-24-2025 take 1 capsule by mouth twice daily docusate sodium (COLACE, DULCOLAX) 100 MG CAPS Take 100 mg by mouth 2 times daily 01/27/2025 Active Start: 11-17-2020 Docusate Sodiu m 50MG Docusate Sodium( 50MG Oral 2 three times daily ) Active -Hx Entry Oral three times daily for 0 *Pick strength-form from [employer] for eRX* Nov, Not-Taking/PRN 1 ml epoetin cristino-epbx 4000 unt/ml injection (1 source) Erythropoiesis-stimulating Agent Start: 01-25-2025 1,600 Units (rounded from 1,607.5 Units = 25 Units/kg 64.3 kg), SubCUTAneous, EVERY (Once per day on Friday), First dose on Fri01/25/25 at 0900, Start or continue erythropoietin cristino-epbx (RETACRIT) therapy only if the hemoglobin is less than 10 g/dL. ferrous fumarate 325 mg oral tablet (2 sources) Start: 11-15-2020 take 1 tablet by mouth once daily ferrous fumarate 325 mg oral tablet 325 mg = 1 tab(s), Oral, Daily Start Date: 11/15/20 Status: Ordered ferrous sulfate 325 mg oral tablet (2 sources) Start: 01-28-2025 take 1 tablet by mouth once daily at breakfast ferrous sulfate (IRON 325) 325 (65 Fe) MG tablet Take 1 tablet by mouth daily (with breakfast) 01/28/2025 Active Start: 01-26-2025 take 325 mg by mouth once daily at breakfast 325 mg, Oral, DAILY WITH BREAKFAST, First dose on Fri01/26/25 at 0800, Until Discontinued ondansetron (ZOFRAN-ODT) disintegrating tablet 4 mg (1 source) Start: 01-24-2025 ondansetron (ZOFRAN-ODT) disintegrating tablet 4 mg polyethylene glycol 3350 [id number] mg powder for oral solution (2 sources) Osmotic Laxative Start: 01-24-2025 End: 02-26-2025 take 1 dose by mouth once daily as needed for constipation polyethylene glycol (GLYCOLAX) 17 g packet Take 1 packet by mouth daily as needed for Constipation 01/27/2025 02/26/2025 Active sennosides, long-term 8.6 mg oral tablet (2 sources) Start: 01-24-2025 End: 02-26-2025 take 1 tablet by mouth once daily senna (SENOKOT) 8.6 MG tablet Take 1 tablet by mouth nightly 01/27/2025 02/26/2025 Active Completed/Discontinued Medications Medication Drug Class(es) Dates Sig (Normalized) Sig (Original) amLODIPine 10 mg oral tablet (20 sources) Dihydropyridine Calcium Channel Jasen Start: 12-04-2020 End: 08-16-2024 take 1 tablet by mouth once daily Amlodipine 10 mg tablet Discontinued 10 MG PO Daily May 04, 2024 12:49pm August 16, 2024 2:20pm Start: 11-15-2020 take 1 tablet by key once daily amLODIPine 5 mg Tab 5 mg = 1 tab(s), Oral, Daily Start Date: 11/15/20 Status: Ordered 100 ml calcium gluconate 20 mg/ml injection (1 source) Start: 01-27-2025 End: 01-27-2025 2,000 mg, IntraVENous, at 50 mL/hr, Administer over 120 Minutes, ONCE, On Alejandra 01/27/25 at 0915, For 1 dose carvedilol 12.5 mg oral tablet (3 sources) alpha-Adrenergic Jasen, beta-Adrenergic Jasen Start: 01-24-2025 take 12.5 mg by mouth twice daily at mealtime 12.5 mg, Oral, 2 TIMES DAILY WITH MEALS, First dose on 01/24/25 at 2100, Until Discontinued, Administer with food to minimize the risk of orthostatic hypotension diphenhydrAMINE hydrochloride 25 mg oral capsule (3 sources) Histamine-1 Receptor Antagonist Start: 01-24-2025 take 25 mg by mouth every six hours as needed 25 mg, Oral, EVERY 6 HOURS PRN, Starting on 01/24/25 at 1636, Until Discontinued, agitation take 1 tablet by key every six hours as needed diphenhydrAMINE (BENADRYL) 25 MG tablet Take 1 tablet by mouth every 6 hours as needed (agitation) Active Ferrex 150 150MG (10 sources) Start: 12-29-2020 Ferrex 150 150 MG Ferrex 150 150MG, 1 (one) Capsule daily # 30, 12/29/2020, Ref. x2. Active Oral daily for 30 *Pick strength-form from [employer] for eRX* Dec, Not-Taking/PRN Start: 12-29-2020 Ferrex 150 150 MG Ferrex 150 150MG, 1 (one) Capsule daily # 30, 12/29/2020, Ref. x2. Active Oral daily for 30 *Pick strength-form from [employer] for eRX* Dec, Not-Taking 1 ml haloperidol 5 mg/ml prefilled syringe (1 source) Typical Antipsychotic Start: 01-27-2025 inject 2 mg by intramuscular injection every six hours as needed 2 mg, IntraMUSCular, EVERY 6 HOURS PRN, Starting on Alejandra 01/27/25 at 0019, Until Discontinued, Agitation, IM route of administration preferred. Because of the risk of TdP and QT prolongation, ECG monitoring is recommended if haloperidol is given IV. 1 ml heparin sodium, porcine 5000 unt/ml prefilled syringe (2 sources) Unfractionated Heparin, Anti-coagulant Start: 01-25-2025 inject 5000 [IU] by subcutaneous injection twice daily 5,000 Units, SubCUTAneous, 2 TIMES DAILY, First dose (after last modification) on Fri01/25/25 at 2100, Until Discontinued Start: 01-24-2025 End: 01-25-2025 inject 1 dose by subcutaneous injection three times daily 5,000 Units, SubCUTAneous, EVERY 8 HOURS SCHEDULED (3 times per day), First dose on Fri01/24/25 at 1645, Until Discontinued levETIRAcetam 500 mg oral tablet (4 sources) Start: 01-25-2025 take 500 mg by mouth once daily 500 mg, Oral, NIGHTLY, First dose (after last modification) on Fri01/25/25 at 2100, Until Discontinued, Do not crush or chew. Start: 01-24-2025 End: 01-25-2025 take 500 mg by mouth twice daily 500 mg, Oral, 2 TIMES DAILY, First dose on Fri01/24/25 at 2100, Until Discontinued, Do not crush or chew. mirtazapine 15 mg oral tablet (3 sources) Start: 01-24-2025 take 15 mg by mouth once daily 15 mg, Oral, NIGHTLY, First dose on Fri01/24/25 at 2100, Until Discontinued microencapsulated potassium chloride 20 meq extended release oral tablet (3 sources) Start: 01-27-2025 End: 01-27-2025 40 mEq, Oral, ONCE, 1 dose, On Fri01/27/25 at 0900, Do not crush, chew, or suck on tablet. Tablet may also be broken in half and each half swallowed separately. Start: 01-26-2025 End: 01-26-2025 20 mEq, Oral, ONCE, 1 dose, On Fri01/26/25 at 1015, Do not crush, chew, or suck on tablet. Tablet may also be broken in half and each half swallowed separately. QUEtiapine 25 mg oral tablet (3 sources) Atypical Antipsychotic Start: 01-24-2025 take 25 mg by mouth twice daily 25 mg, Oral, 2 TIMES DAILY, First dose on Fri01/24/25 at 2100, Until Discontinued sodium bicarbonate 325 mg oral tablet (10 sources) Start: 12-04-2020 take 1 tablet by mouth twice daily as needed Sodium Bicarbonate 325MG Sodium Bicarbonate 325MG, 2 (two) Tablet two times daily # 120, 12/04/2020, Ref. x11. Active Oral two times daily for 30 *Pick strength-form from [employer] for eRX* Dec, Not-Taking/PRN 5 ml sodium chloride 9 mg/ml injection (5 sources) Start: 01-24-2025 5-40 mL, IntraVENous, EVERY 12 HOURS SCHEDULED (2 times per day), First dose on Fri01/24/25 at 2100, Until Discontinued, For Line Patency: Peripheral IV = 5 mL; Midline or Central Line = 10 mL/lumen. If following IV push medication, administer flush at same rate as the IV push. Flush volume is determined by type of infusion therapy being given. For non-viscous solutions use: Peripheral IV = 5 mL Midline or Central Line = 10 mL/lumen For viscous solutions (i.e. blood components, parenteral nutrition, contrast media, or after obtaining blood sample) use: Peripheral IV = 10 mL Midline or Central Line = 20 mL/lumen Start: 01-24-2025 Start: 01-24-2025 End: 01-27-2025 IntraVENous, at 75 mL/hr, CO NTINUOUS, Starting on Fri01/24/25 at 1645 tamsulosin hydrochloride 0.4 mg oral capsule (20 sources) alpha-Adrenergic Jasen Start: 01-24-2025 take 0.4 mg by mouth once daily at mealtime 0.4 mg, Oral, DAILY, First dose on Fri01/24/25 at 1645, Until Discontinued, Do not crush or break. Give 30 minutes after a full meal to limit risk of orthostatic hypotension/falls. Start: 12-03-2023 End: 11-27-2024 take 2 capsules by mouth once daily tamsulosin 0.4 mg Cap 0.8 mg = 2 cap(s), Oral, Daily, X 90 day(s), # 180 cap(s), Refills(s) 3, Pharmacy: [facility]/pharmacy #[id number], 177, cm, 12/03/23 15:04:00 EST, Height/Length Dosing, 66.5, kg, 12/03/23 15:04:00 EST, Weight Dosing Start Date: 12/03/23 Stop Date: 11/27/24 Status: Ordered Start: 12-04-2020 End: 08-16-2024 take 1 capsule by mouth once daily at bedtime Tamsulosin 0.4 mg capsule Discontinued 0.4 MG PO Daily at bedtime May 04, 2024 12:50pm August 16, 2024 2:20pm Problems Active Problems Problem Classification Problem Date Documented Da te Episodic/Chronic Acute and unspecified renal failure (10 sources) Acute renal failure syndrome; Translations: [Acute kidney failure, unspecified] Onset: 09-10-2020 01-18-2021 Episodic Acute and unspecified renal failure (7 sources) Acute injury of kidney; Translations: [TJ (acute kidney injury)] Onset: 09-10-2020 09-10-2020 Acute posthemorrhagic anemia (10 sources) Acute posthemorrhagic anemia; Translations: [Acute posthemorrhagic anemia] Episodic Chronic kidney disease (20 sources) Chronic kidney disease stage 4; Translations: [Chronic kidney disease, stage 4 (severe)] 2024 Chronic Chronic obstructive pulmonary disease and bronchiectasis (20 sources) Simple chronic bronchitis; Translations: [Simple chronic bronchitis] Chronic Deficiency and other anemia (3 sources) Anemia; Translations: [Anemia, unspecified] 11-15-2020 Episodic Deficiency and other anemia (1 source) Iron deficiency anemia; Translations: [Iron deficiency anemia, unspecified] 09-20-2024 Episodic Disorders of teeth and jaw (1 [...] Essential hypertension; Translations: [Essential (primary) hypertension] Chronic Fever of unknown origin (2 sources) Fever, unspecified; Translations: [Fever, unspecified] Onset: 01-22-2025 Episodic Fracture of upper limb (2 sources) Unspecified [...] and fatigue (1 source) Other fatigue Episodic Mood disorders (3 sources) Severe recurrent major depression without psychotic features; Translations: [Major depressive disorder, recurrent severe without psychotic features] 01-24-2025 Chronic Open wounds of head; neck; and trunk (4 sources) Laceration without foreign body of lip, initial encounter; Translations: [LACERATION W/O FB LIP INITIAL ENC] Onset: 10-06-2022 Episodic Osteoarthritis (13 sources) Osteoarthritis of joint of right wrist; Translations: [Primary osteoarthritis, right wrist] Chronic Other aftercare (1 source) Other air commodore (current) drug therapy; Translations: [OTH FCI CURRENT DRUG THERAPY] Onset: 10-09-2022 Episodic Other aftercare (2 sources) Encounter for removal of sutures Episodic Other circulatory disease (1 source) Elevated blood-pressure reading, without diagnosis of hypertension Episodic Other diseases of bladder and urethra (3 sources) Bladder outlet obstruction; Translations: [Bladder-neck obstruction] Onset: 01-24-2025 01-24-2025 Chronic Other diseases of kidney and ureters (1 [...] [Impacted cerumen, unspecified ear] 02-03-2024 Episodic Other gastrointestinal disorders (3 sources) Slow transit constipation; Translations: [Slow transit constipation] Onset: 01-24-2025 01-24-2025 Episodic Other hereditary and degenerative nervous system conditions (13 sources) Impaired cognition; Translations: [Mild cognitive impairment, so stated] 2024 Chronic Other hereditary and degenerative nervous system conditions (7 sources) Mild cognitive impairment, so stated; Translations: [Mild cognitive impairment, so stated] Chronic Other nervous system disorders (2 sources) Unsteady when turning; Translations: [Other abnormalities of gait and mobility] 05-04-2024 Episodic Other nervous system disorders (1 source) Other abnormalities of gait and mobility; Translations: [Other symptoms involving nervous and musculoskeletal systems] 08-16-2024 Episodic Other screening for suspected conditions (not mental disorders or infectious disease) (1 source) Encounter for screening for malignant neoplasm of prostate Episodic Residual codes; unclassified (2 sources) Altered mental status, unspecified; Translations: [Altered mental status, unspecified] Onset: 01-22-2025 Episodic Screening and history of mental health and substance abuse codes (1 source) Personal history of nicotine dependence; Translations: [PERSONAL HISTORY OF NICOTINE DEPEND] Onset: 10-09-2022 Episodic Substance-related disorders (17 sources) Tobacco dependence in remission; Translations: [Nicotine dependence, cigarettes, in remission] Chronic Superficial injury; contusion (1 source) Contusion of other part of head, initial encounter; Translations: [CONTUS OTH PRT HEAD INITIAL ENCNTR] Onset: 10-09-2022 Episodic Syncope (1 source) Syncope and collapse Episodic Unclassified (2 sources) Finding of sensation of bladder 12-03-2023 Urinary tract infections (5 sources) Acute cystitis; Translations: [Acute cystitis without hematuria] Onset: 01-24-2025 01-24-2025 Episodic Viral infection (10 sources) Disease caused by 2019-nCoV; Translations: [COVID-19] Past or Other Problems Problem Classification Problem Date Documented Da te Episodic/Chronic Chronic kidney disease (4 sources) Chronic kidney disease; Translations: [Stage 3a chronic kidney disease N18.31] Results Test Name Value Interpretation Reference Range Facility Cult, Bloodon 01-29-2025 Cult, Blood Specimen Description .BLOOD Special Requests RIGHT ARM, 20ML, DS Culture NO GROWTH 5 DAYS Report Status FINAL 01/29/2025 [facility] Comment on above: Performed By: #### U AX UMICAO #### [facility] [address] [place] [address] Blanching Machine Operator: Dimas Chandler MD Cult,Bloodon 01-29-2025 Cult,Blood Specimen Description .BLOOD Special Requests LEFT ARM, 20ML, DS Culture NO GROWTH 5 DAYS Report Status FINAL 01/29/2025 [facility] Comment on above: Performed By: #### B MP, CBC #### [facility] [address] [place] [address] Blanching Machine Operator: Dimas Chandler MD #### LIPR #### [address] [address] Blanching Machine Operator: David Tate MD Cult,Urineon 01-29-2025 Cult,Urine Specimen Description .URINE Culture CITROBACTER BRAAKII 10 [...] .032 SUSCEPTIBLE SUSCEPTIBILITY Organism MORGANELLA MORGANII Method HERNANDZE MEADE Ceftriaxone SUSCEPTIBLE Susceptible [facility] Comment on above: Performed By: #### U AX, UMICAO #### [facility] [address] [place] [address] Blanching Machine Operator: Dimas Chandler MD Basic Metab w/rfx MGon 01-27 Anion gap [Moles/Vol] 10 mmol/L Normal 9-16 [facility] Comment on above: Performed By: #### B MP, CBC #### [facility] [address] [place], [place] [id number] Blanching Machine Operator: Dimas Chandler MD #### LIPR #### [facility] [address] [place] [address] Blanching Machine Operator: David Tate MD BUN/CRE Ratio 11 Normal 9-20 [facility] Comment on above: Performed By: #### B MP, CBC #### [facility] [address] [place], [place] [id number] Blanching Machine Operator: Dimas Chandler MD #### LIPR #### [address] [address] Blanching Machine Operator: David Tate MD Calcium [Mass/Vol] 8.1 mg/dL Low 8.6-10.4 [facility] Comment on above: Performed By: #### B MP, CBC #### [facility] [address] [place] [address] Blanching Machine Operator: Dimas Chandler MD #### LIPR #### [address] [place] [address] Blanching Machine Operator: David Tate MD Chloride [Moles/Vol] 109 mmol/L High 98-107 [facility] Comment on above: Performed By: #### B MP, CBC #### [facility] [address] [place] [address] Blanching Machine Operator: Dimas Chandler MD #### LIPR #### [address] [address] Blanching Machine Operator: David Tate MD CO2 [Moles/Vol] 20 mmol/L Normal 20-31 [facility] Comment on above: Performed By: #### B MP, CBC #### [facility] [address] [place] [address] [place], [place] [id number] Blanching Machine Operator: Dimas Chandler MD #### LIPR #### [facility] [address] [place], [place] [id number] Blanching Machine Operator: David Tate MD Creatinine [Mass/Vol] 2.5 mg/dL High 0.70-1.20 [facility] Comment on above: Performed By: #### B MP, CBC #### [facility] [address] [place] [address] [address] [place], [place] [id number] Blanching Machine Operator: Dimas Chandler MD #### LIPR #### [address] [place], [place] [id number] Blanching Machine Operator: David Tate MD GFR/1.73 sq M.predicted among non-blacks MDRD (S/P/Bld) [Vol rate/Area] 26 mL/min/{1.73_m2} Low >60 [facility] Comment on above: Result Comment: These results are not intended [...] following therapy that affects renal tubular secretion. Performed By: #### B JAVIER, CBC #### [facility] [address] [place] [address] [place], [place] [id number] Blanching Machine Operator: Dimas Chandler MD #### LIPR #### [facility] [address] [place] [address] Blanching Machine Operator: David Tate MD Glucose [Mass/Vol] 95 mg/dL Normal 74-99 [facility] Comment on above: Performed By: #### B MP, CBC #### [facility] [address] [place] [address] [address] [place], [place] [id number] Blanching Machine Operator: Dimas Chandler MD #### LIPR #### [address] [place], [place] [id number] Blanching Machine Operator: David Tate MD Potassium [Moles/Vol] 3.5 mmol/L Low 3.7-5.3 [facility] Comment on above: Performed By: #### B MP, CBC #### [facility] [address] [place] [address] [place], [place] [id number] Blanching Machine Operator: Dimas Chandler MD #### LIPR #### [address] [id number] Blanching Machine Operator: David Tate MD Sodium [Moles/Vol] 139 mmol/L Normal 136-145 [facility] Comment on above: Performed By: #### B MP, CBC #### [facility] [address] [place] [address] [place], [place] [id number] Blanching Machine Operator: Dimas Chandler MD #### LIPR #### [address] [address] Blanching Machine Operator: David Tate MD Urea nitrogen [Mass/Vol] 28 mg/dL High 8-23 [facility] Comment on above: Performed By: #### B MP, CBC #### [facility] [address] [place] [address] [place], [place] [id number] Blanching Machine Operator: Dimas Chandler MD #### LIPR #### [address] [address] Blanching Machine Operator: Dvaid Tate MD Basic Metabolic Panel w/ Ref jass to MGon 01-27-2025 Anion gap [Moles/Vol] 10 mmol/L 9 - 16 mmol/L [facility] Calcium [Mass/Vol] 8.1 mg/dL Low 8.6 - 10. 4 mg/dL [facility] Chloride [Moles/Vol] 109 mmol/L High 98 - 10 7 mmol/L [facility] CO2 [Moles/Vol] 20 mmol/L 20 - 31 mmol/L [facility] Creatinine [Mass/Vol] 2.5 mg/dL High 0.70 - 1.20 mg/dL [facility] Juanita Arellanot Rate 26 Low - PINF [facility] Comment on above: These results are not intended for use [...] following therapy that affects renal tubular secretion. Glucose [Mass/Vol] 95 mg/dL 74 - 99 mg/dL [facility] Interpretation and review of laboratory results Abnormal [facility] Potassium [Moles/Vol] 3.5 mmol/L Low 3.7 - 5.3 mmol/L [facility] Sodium [Moles/Vol] 139 mmol/L 136 - 145 mmol/L [facility] Urea nitrogen [Mass/Vol] 28 mg/dL High 8 - 23 mg/dL [facility] Urea nitrogen/Creatinine [Mass ratio] 11 mg/mg 9 - 20 [facility] CBC auto differentialon 01-02 Basophils (Bld) [#/Vol] 0.07 10*3/uL [facility] Basophils/100 WBC (Bld) 1 % 0 - 2 % [facility] Eosinophils (Bld) [#/Vol] 0.09 10*3/uL [facility] Eosinophils/100 WBC (Bld) 1 % 1 - 4 % [facility] Erythrocyte distribution width (RBC) [Ratio] 15.4 % High 11.8 - 14.4 % [facility] Hematocrit (Bld) [Volume fraction] 25.5 % Low 40.7 - 50.3 % [facility] Hemoglobin (Bld) [Mass/Vol] 8 g/dL Low 13.0 - 17.0 g/dL [facility] Immature granulocytes (Bld) [#/Vol] 0.17 10*3/uL [facility] Immature granulocytes/100 WBC (Bld) 3 % High 0 [facility] Interpretation and review of laboratory results Abnormal [facility] Lymphocytes/100 WBC (Bld) 26 % 24 - 43 % [facility] Lymphocytes/100 WBC (Bld) 1.82 % [facility] MCH (RBC) [Entitic mass] 26.7 pg 25.2 - 33.5 pg [facility] MCHC (RBC) [Mass/Vol] 31.4 g/dL 28.4 - 34.8 g/dL [facility] MCV (RBC) [Entitic vol] 85 fL 82.6 - 102.9 fL [facility] Monocytes/100 WBC (Bld) 9 % 3 - 12 % [facility] Monocytes/100 WBC (Bld) 0.6 % [facility] Neutrophils/100 WBC (Bld) 60 % 36 - 65 % [facility] Nucleated RBC/100 WBC (Bld) [Ratio] 0 % 0.0 per 100 WBC [facility] Platelet mean volume (Bld) [Entitic vol] 10.7 fL 8.1 - 13.5 fL [facility] Platelets (Bld) [#/Vol] 497 10*3/uL High [facility] RBC (Bld) [#/Vol] 3 10*6/uL Low 4.21 - 5.7 7 m/uL [facility] Segmented neutrophils/100 WBC (Bld) 4.15 % [facility] WBC other (Bld) [#/Vol] 6.9 [facility] CBC with Diffon 01-27-2025 Abs. Basophil 0.07 k/uL Normal 0.00-0.20 [facility] Comment on above: Performed By: #### B MP, CBC #### [facility] [address] [place] [address] Blanching Machine Operator: Dimas Chandler MD #### LIPR #### [address] [place], [place] [id number] Blanching Machine Operator: David Tate MD Abs.Imm.Granulocyte 0.17 k/uL Normal 0.00-0.30 [facility] Comment on above: Performed By: #### B MP, CBC #### [facility] [address] [place] [address] [place], [place] [id number] Blanching Machine Operator: Dimas Chandler MD #### LIPR #### [address] [id number] Blanching Machine Operator: David Tate MD Abs.Neutrophil (Seg) 4.15 k/uL Normal 1.50-8.10 [facility] Comment on above: Performed By: #### B MP, CBC #### [facility] [address] [place] [address] [address] [id number] ( Blanching Machine Operator: Dimas Chandler MD #### LIPR #### [address] [id number] Blanching Machine Operator: David Tate MD Basophils/100 WBC (Bld) 1 % Normal 0-2 [facility] Comment on above: Performed By: #### B MP, CBC #### [facility] [address] [place] [address] [address] [phone] Blanching Machine Operator: Dimas Chandler MD #### LIPR #### [address] [address] Blanching Machine Operator: David Tate MD Eosinophils (Bld) [#/Vol] 0.09 10*3/uL Normal 0.00-0.44 [facility] Comment on above: Performed By: #### B MP, CBC #### [facility] [address] [place] [address] [place], [place] [phone] Blanching Machine Operator: Dimas Chandler MD #### LIPR #### [address] [address] Blanching Machine Operator: David Tate MD Eosinophils/100 WBC (Bld) 1 % Normal 1-4 [facility] Comment on above: Performed By: #### B MP, CBC #### [facility] [address] [place], [place] [phone] Blanching Machine Operator: Dimas Chandler MD #### LIPR #### [address] [id number] Blanching Machine Operator: David Tate MD Erythrocyte distribution width (RBC) [Ratio] 15.4 % High 11.8-14.4 [facility] Comment on above: Performed By: #### B MP, CBC #### [facility] [address] [place], [place] [id number] Blanching Machine Operator: Dimas Chandler MD #### LIPR #### [address] [phone] Blanching Machine Operator: David Tate MD Hematocrit (Bld) [Volume fraction] 25.5 % Low 40.7-50.3 [facility] Comment on above: Performed By: #### B MP, CBC #### [address] [place], [place] 6558483 Blanching Machine Operator: Dimas Chandler MD #### LIPR #### [address] [phone] Blanching Machine Operator: David Tate MD Hemoglobin (Bld) [Mass/Vol] 8.0 g/dL Low 13.0-17.0 [facility] Comment on above: Performed By: #### B MP, CBC #### [facility] [address] [place] [address] [place], [place] [phone] Blanching Machine Operator: Dimas Chandler MD #### LIPR #### [address] [id number] Blanching Machine Operator: David Tate MD Immature granulocytes/100 WBC (Bld) 3 % High 0 [facility] Comment on above: Performed By: #### B MP, CBC #### [facility] [address] [place] [phone] Blanching Machine Operator: Dimas Chandler MD #### LIPR #### [address] [phone] Blanching Machine Operator: David Tate MD Lymphocytes (Bld) [#/Vol] 1.82 10*3/uL Normal 1.10-3.70 [facility] Comment on above: Performed By: #### B MP, CBC #### [address] [place] [phone] Blanching Machine Operator: Dimas Chandler MD #### LIPR #### [address] [id number] Blanching Machine Operator: David Tate MD Lymphocytes/100 WBC (Bld) 26 % Normal 24-43 [facility] Comment on above: Performed By: #### B MP, CBC #### [address] [place] [phone] Blanching Machine Operator: Dimas Chandler MD #### LIPR #### [place] [address] Blanching Machine Operator: David Tate MD MCH (RBC) [Entitic mass] 26.7 pg Normal 25.2-33.5 [facility] Comment on above: Performed By: #### B MP, CBC #### [address] [place] [phone] Blanching Machine Operator: Dimas Chandler MD #### LIPR #### [address] [phone] Blanching Machine Operator: David Tate MD MCHC (RBC) [Mass/Vol] 31.4 g/dL Normal 28.4-34.8 [facility] Comment on above: Performed By: #### B MP, CBC #### [address] [place] [address] Blanching Machine Operator: Dimas Chandler MD #### LIPR #### [place] [address] Blanching Machine Operator: David Tate MD MCV (RBC) [Entitic vol] 85.0 fL Normal 82.6-102.9 [facility] Comment on above: Performed By: #### B MP, CBC #### [address] [place] [phone] ( Blanching Machine Operator: Dimas Chandler MD #### LIPR #### [place] [address] Blanching Machine Operator: David Tate MD Monocytes (Bld) [#/Vol] 0.60 10*3/uL Normal 0.10-1.20 [facility] Comment on above: Performed By: #### B MP, CBC #### [address] [place] [address] Blanching Machine Operator: Dimas Chandler MD #### LIPR #### [place] [address] Blanching Machine Operator: David Tate MD Monocytes/100 WBC (Bld) 9 % Normal 3-12 [facility] Comment on above: Performed By: #### B MP, CBC #### [address] [place] [phone] ( Blanching Machine Operator: Dimas Chandler MD #### LIPR #### [place] [address] Blanching Machine Operator: David Tate MD Neutrophil (Seg) 60 % Normal 36-65 [facility] Comment on above: Performed By: #### B MP, CBC #### [address] [place] [phone] ( Blanching Machine Operator: Dimas Chandler MD #### LIPR #### [address] [place] [address] Blanching Machine Operator: David Tate MD NRBC Automated 0.0 per 100 WBC Normal 0.0 [facility] Comment on above: Performed By: #### B MP, CBC #### [facility] [address] [place], [place] 1689483 Blanching Machine Operator: Dimas Chandler MD #### LIPR #### [address] [address] Blanching Machine Operator: David Tate MD Platelet mean volume (Bld) [Entitic vol] 10.7 fL Normal 8.1-13.5 [facility] Comment on above: Performed By: #### B MP, CBC #### [facility] [address] [place] [address] [place], [place] [phone] Blanching Machine Operator: Dimas Chandler MD #### LIPR #### [address] [address] Blanching Machine Operator: David Tate MD Platelets (Bld) [#/Vol] 497 10*3/uL High 138-453 [facility] Comment on above: Performed By: #### B MP, CBC #### [facility] [address] [place] [address] [place], [place] 6109083 Blanching Machine Operator: Diams Chandler MD #### LIPR #### [address] [address] Blanching Machine Operator: David Tate MD RBC (Bld) [#/Vol] 3.00 10*6/uL Low 4.21-5.77 [facility] Comment on above: Performed By: #### B MP, CBC #### [facility] [address] [place], [place] 3606683 Blanching Machine Operator: Dimas Chandler MD #### LIPR #### [address] [address] Blanching Machine Operator: David Tate MD WBC (Bld) [#/Vol] 6.9 10*3/uL Normal 3.5-11.3 [facility] Comment on above: Performed By: #### B MP, CBC #### [facility] [address] [place] [address] Blanching Machine Operator: Dimas Chandler MD #### LIPR #### [facility] [address] [place] [address] Blanching Machine Operator: David Tate MD Magnesiumon 01-27-2025 Magnesium [Mass/Vol] 1.6 mg/dL 1.6 - 2 .4 mg/dL [facility] Magnesium [Mass/Vol] 1.6 mg/dL Normal 1.6-2.4 [facility] Comment on above: Performed By: #### B MP, CBC #### [address] [place] [address] Blanching Machine Operator: Dimas Chandler MD #### LIPR #### [facility] [address] [place] [address] Blanching Machine Operator: David Tate MD Basic Metab w/rfx MGon 01-26 Anion gap [Moles/Vol] 11 mmol/L Normal 9-16 [facility] Comment on above: Performed By: #### MANJINDER Faust, BMPX #### [facility] [address] [place] [address] Blanching Machine Operator: Dimas Chandler MD BUN/CRE Ratio 14 Normal 9-20 [facility] Comment on above: Performed By: #### MANJINDER Faust, BMPX #### [facility] [address] [place] [address] Blanching Machine Operator: Dimas Chandler MD Calcium [Mass/Vol] 8.2 mg/dL Low 8.6-10.4 [facility] Comment on above: Performed By: #### M Graham, CDP, BMPX #### [facility] [address] [place] [address] Blanching Machine Operator: Dimas Chandler MD Chloride [Moles/Vol] 109 mmol/L High 98-107 [facility] Comment on above: Performed By: #### M Graham, CDP, BMPX #### [facility] [address] [place], [place] [id number] Blanching Machine Operator: Dimas Chandler MD CO2 [Moles/Vol] 21 mmol/L Normal 20-31 [facility] Comment on above: Performed By: #### M Graham, CDP, BMPX #### [facility] [address] [place] [address] Blanching Machine Operator: Dimas Chandler MD Creatinine [Mass/Vol] 3.2 mg/dL High 0.70-1.20 [facility] Comment on above: Performed By: #### M Graham, CDP, BMPX #### [facility] [address] [place] [address] Blanching Machine Operator: Dimas Chandler MD GFR/1.73 sq M.predicted among non-blacks MDRD (S/P/Bld) [Vol rate/Area] 19 mL/min/{1.73_m2} Low >60 [facility] Comment on above: Result Comment: These results are not intended [...] following therapy that affects renal tubular secretion. Performed By: #### M G, CDP, BMPX #### [facility] [address] [place] [address] Blanching Machine Operator: Dimas Chandler MD Glucose [Mass/Vol] 105 mg/dL High 74-99 [facility] Comment on above: Performed By: #### M Graham, CDP, BMPX #### [facility] [address] [place] [address] Blanching Machine Operator: Dimas Chandler MD Potassium [Moles/Vol] 3.5 mmol/L Low 3.7-5.3 [facility] Comment on above: Performed By: #### [place] Stevenson, CDP, BMPX #### [facility] [address] [place], [place] 3594083 Blanching Machine Operator: Dimas Chandler MD Sodium [Moles/Vol] 141 mmol/L Normal 136-145 [facility] Comment on above: Performed By: #### [place] Stevenson, MANJINDER, BMPX #### [facility] [address] [place], [place] [phone] Blanching Machine Operator: Dimas Chandler MD Urea nitrogen [Mass/Vol] 44 mg/dL High 8-23 [facility] Comment on above: Performed By: #### M Graham, MANJINDER, BMPX #### [facility] [address] [place] [address] Blanching Machine Operator: Dimas Chandler MD Basic Metabolic Panel w/ Ref jass to MGon 01-26-2025 Anion gap [Moles/Vol] 11 mmol/L 9 - 16 mmol/L [facility] Calcium [Mass/Vol] 8.2 mg/dL Low 8.6 - 10. 4 mg/dL [facility] Chloride [Moles/Vol] 109 mmol/L High 98 - 10 7 mmol/L [facility] CO2 [Moles/Vol] 21 mmol/L 20 - 31 mmol/L [facility] Creatinine [Mass/Vol] 3.2 mg/dL High 0.70 - 1.20 mg/dL [facility] Est, Glom Filt Rate 19 Low - PINF [facility] Comment on above: These results are not intended for use in patients <18 years of age. eGFR results are calculated without a race factor using the 2021 CKD-EPI equation. Careful clinical correlation is recommended, particularly when comparing to results calculated using previous equations. The CKD-EPI equation is less accurate in patients with extremes of muscle mass, extra-renal metabolism of creatine, excessive creatine ingestion, or following therapy that affects renal tubular secretion. Glucose [Mass/Vol] 105 mg/dL High 74 - 99 mg/dL [facility] Interpretation and review of laboratory results Abnormal [facility] Potassium [Moles/Vol] 3.5 mmol/L Low 3.7 - 5.3 mmol/L [facility] Sodium [Moles/Vol] 141 mmol/L 136 - 145 mmol/L [facility] Urea nitrogen [Mass/Vol] 44 mg/dL High 8 - 23 mg/dL [facility] Urea nitrogen/Creatinine [Mass ratio] 14 mg/mg 9 - 20 [facility] CBC auto differentialon 01-02 Basophils (Bld) [#/Vol] 0.06 10*3/uL [facility] Basophils/100 WBC (Bld) 1 % 0 - 2 % [facility] Eosinophils (Bld) [#/Vol] 0.08 10*3/uL [facility] Eosinophils/100 WBC (Bld) 1 % 1 - 4 % [facility] Erythrocyte distribution width (RBC) [Ratio] 15.9 % High 11.8 - 14.4 % [facility] Hematocrit (Bld) [Volume fraction] 25.8 % Low 40.7 - 50.3 % [facility] Hemoglobin (Bld) [Mass/Vol] 8.2 g/dL Low 13.0 - 17.0 g/dL [facility] Immature granulocytes (Bld) [#/Vol] 0.08 10*3/uL [facility] Immature granulocytes/100 WBC (Bld) 1 % High 0 [facility] Interpretation and review of laboratory results Abnormal [facility] Lymphocytes/100 WBC (Bld) 26 % 24 - 43 % [facility] Lymphocytes/100 WBC (Bld) 1.53 % [facility] MCH (RBC) [Entitic mass] 27.4 pg 25.2 - 33.5 pg [facility] MCHC (RBC) [Mass/Vol] 31.8 g/dL 28.4 - 34.8 g/dL [facility] MCV (RBC) [Entitic vol] 86.3 fL 82.6 - 102.9 fL [facility] Monocytes/100 WBC (Bld) 8 % 3 - 12 % [facility] Monocytes/100 WBC (Bld) 0.47 % [facility] Neutrophils/100 WBC (Bld) 63 % 36 - 65 % [facility] Nucleated RBC/100 WBC (Bld) [Ratio] 0 % 0.0 per 100 WBC [facility] Platelet mean volume (Bld) [Entitic vol] 10.7 fL 8.1 - 13.5 fL [facility] Platelets (Bld) [#/Vol] 487 10*3/uL High [facility] RBC (Bld) [#/Vol] 2.99 10*6/uL Low 4.21 - 5.7 7 m/uL [facility] Segmented neutrophils/100 WBC (Bld) 3.73 % [facility] WBC other (Bld) [#/Vol] 6 [facility] CBC with Diffon 01-26-2025 Abs. Basophil 0.06 k/uL Normal 0.00-0.20 [facility] Comment on above: Performed By: #### MANJINDER Faust, BMPX #### [facility] [address] [place] [address] [place] [address] Blanching Machine Operator: Dimas Chandler MD Abs.Imm.Granulocyte 0.08 k/uL Normal 0.00-0.30 [facility] Comment on above: Performed By: #### MANJINDER Faust, BMPX #### [address] [place] [address] Blanching Machine Operator: Dimas Chandler MD Abs.Neutrophil (Seg) 3.73 k/uL Normal 1.50-8.10 [facility] Comment on above: Performed By: #### MANJINDER Faust, BMPX #### [facility] [address] [place] [address] Blanching Machine Operator: Dimas Chandler MD Basophils/100 WBC (Bld) 1 % Normal 0-2 [facility] Comment on above: Performed By: #### [place] Stevenson, CDP, BMPX #### [address] [place], [place] 4579783 Blanching Machine Operator: Dimas Chandler MD Eosinophils (Bld) [#/Vol] 0.08 10*3/uL Normal 0.00-0.44 [facility] Comment on above: Performed By: #### [place] Stevenson, CDP, BMPX #### [address] [place] [address] Blanching Machine Operator: Dimas Chandler MD Eosinophils/100 WBC (Bld) 1 % Normal 1-4 [facility] Comment on above: Performed By: #### [place] Stevenson CDP, BMPX #### [address] [place], [facility] Blanching Machine Operator: Dimas Chandler MD Erythrocyte distribution width (RBC) [Ratio] 15.9 % High 11.8-14.4 [facility] Comment on above: Performed By: #### Ch[place] Stevenson CDP, BMPX #### [address] [place] [id number] Blanching Machine Operator: Dimas Chandler MD Hematocrit (Bld) [Volume fraction] 25.8 % Low 40.7-50.3 [facility] Comment on above: Performed By: #### Chino Stevenson CDP, BMPX #### [address] [place] [address] Blanching Machine Operator: Dimas Chandler MD Hemoglobin (Bld) [Mass/Vol] 8.2 g/dL Low 13.0-17.0 [facility] Comment on above: Performed By: #### Chino Stevenson CDP, BMPX #### [address] [place] [facility] Blanching Machine Operator: Dimas Chandler MD Immature granulocytes/100 WBC (Bld) 1 % High 0 [facility] Comment on above: Performed By: #### Chino Stevenson CDP, BMPX #### [facility] [address] [place], [facility] Blanching Machine Operator: Dimas Chandler MD Lymphocytes (Bld) [#/Vol] 1.53 10*3/uL Normal 1.10-3.70 [facility] Comment on above: Performed By: #### Ch[place] Stevenson, CDP, BMPX #### [facility] [address] [place] [id number] Blanching Machine Operator: Dimas Chandler MD Lymphocytes/100 WBC (Bld) 26 % Normal 24-43 [facility] Comment on above: Performed By: #### MANJINDER Faust, BMPX #### [address] [place], [facility] Blanching Machine Operator: Dimas Chandler MD MCH (RBC) [Entitic mass] 27.4 pg Normal 25.2-33.5 [facility] Comment on above: Performed By: #### MANJINDER Faust, BMPX #### [address] [place] [id number] Blanching Machine Operator: Dimas Chandler MD MCHC (RBC) [Mass/Vol] 31.8 g/dL Normal 28.4-34.8 [facility] Comment on above: Performed By: #### MANJINDER Faust, BMPX #### [address] [place], [facility]83 Blanching Machine Operator: Dimas Chandler MD MCV (RBC) [Entitic vol] 86.3 fL Normal 82.6-102.9 [facility] Comment on above: Performed By: #### Ch[place] Stevenson CDP, BMPX #### [address] [place], [place] [id number] Blanching Machine Operator: Dimas Chandler MD Monocytes (Bld) [#/Vol] 0.47 10*3/uL Normal 0.10-1.20 [facility] Comment on above: Performed By: #### Ch[place] Stevenson, CDP, BMPX #### [facility] [address] [place] [address] Blanching Machine Operator: Dimas Chandler MD Monocytes/100 WBC (Bld) 8 % Normal 3-12 [facility] Comment on above: Performed By: #### Ch[place] Stevenson, CDP, BMPX #### [facility] [address] [place], [place] 6323383 Blanching Machine Operator: Dimas Chandler MD Neutrophil (Seg) 63 % Normal 36-65 [facility] Comment on above: Performed By: #### Chino Stevenson CDP, BMPX #### [facility] [address] [place], [facility]83 Blanching Machine Operator: Dimas Chandler MD NRBC Automated 0.0 per 100 WBC Normal 0.0 [facility] Comment on above: Performed By: #### MANJINDER Faust, BMPX #### [address] [place], [place] [id number] Blanching Machine Operator: Dimas Chandler MD Platelet mean volume (Bld) [Entitic vol] 10.7 fL Normal 8.1-13.5 [facility] Comment on above: Performed By: #### Chino Stevenson CDP, BMPX #### [facility] [address] [place], [place] 7323483 Blanching Machine Operator: Dimas Chandler MD Platelets (Bld) [#/Vol] 487 10*3/uL High 138-453 [facility] Comment on above: Performed By: #### [place] Stevenson, CDP, BMPX #### [facility] [address] [place], [place] 2851683 Blanching Machine Operator: Dimas Chandler MD RBC (Bld) [#/Vol] 2.99 10*6/uL Low 4.21-5.77 [facility] Comment on above: Performed By: #### M MANJINDER Stevenson, BMPX #### [facility] [address] [place] [address] Blanching Machine Operator: Dimas Chandler MD WBC (Bld) [#/Vol] 6.0 10*3/uL Normal 3.5-11.3 [facility] Comment on above: Performed By: #### MANJINDER Faust, BMPX #### [facility] [address] [place] [address] Blanching Machine Operator: Dimas Chandler MD Cult,Urineon 01-26-2025 Cult,Urine Specimen Description .VOIDED URINE Culture CITROBACTER FREUNDII >100,000 CFU/ML Identification by MALDI-TOF MORGANELLA MORGANII >100,000 CFU/ML Identification by MALDI-TOF Report Status FINAL 01/26/2025 SUSCEPTIBILITY Organism MORGANELLA MORGANII Method YECENIA Ampicillin >=32 RESISTANT Gentamicin <=1 SUSCEPTIBLE Levofloxacin <=0.12 SUSCEPTIBLE Nitrofurantoin 64 RESISTANT Piperacillin/Tazobactam <=4 SUSCEPTIBLE Tobramycin <=1 SUSCEPTIBLE Trimethoprim/Sulfa <=20 SUSCEPTIBLE SUSCEPTIBILITY Organism MORGANELLA MORGANII Method HERNANDEZ MEADE Ceftriaxone SUSCEPTIBLE SUSCEPTIBILITY Organism CITROBACTER FREUNDII Method YECENIA Ceftriaxone <=0.25 SUSCEPTIBLE Gentamicin <=1 SUSCEPTIBLE Levofloxacin <=0.12 SUSCEPTIBLE Nitrofurantoin <=16 SUSCEPTIBLE Piperacillin/Tazobactam <=4 SUSCEPTIBLE Tobramycin <=1 SUSCEPTIBLE Trimethoprim/Sulfa <=20 SUSCEPTIBLE Susceptible [facility] Comment on above: Performed By: #### U RC #### [facility] [address] [place] [address] Blanching Machine Operator: David Tate MD [facility] [address] [place] [address] Blanching Machine Operator: Dimas Chandler MD Magnesiumon 01-26-2025 Magnesium [Mass/Vol] 1.8 mg/dL 1.6 - 2 .4 mg/dL [facility] Magnesium [Mass/Vol] 1.8 mg/dL Normal 1.6-2.4 [facility] Comment on above: Performed By: #### M G, CDP, BMPX #### [facility] [address] [place], [place] 1402183 Blanching Machine Operator: Dimas Chandler MD B12/Folate Panelon Cobalamin (Vitamin B12) [Mass/Vol] pg/mL High 232-1245 [facility] Comment on above: Performed By: #### U AX, UMICAO #### [facility] [address] [place], [place] 4199083 Blanching Machine Operator: Dimas Chandler MD Folic Acid 17.6 ng/mL Normal 4.8-24.2 [facility] Comment on above: Performed By: #### U AX, UMICAO #### [facility] [address] [place] [address] [place], [place] 3024983 Blanching Machine Operator: Dimas Chandler MD Basic Metab w/rfx MGon 01-257 Anion gap [Moles/Vol] 12 mmol/L Normal 9-16 [facility] Comment on above: Performed By: #### U AX, UMICAO #### [facility] [address] [place] [address] [place], [place] 3188783 Blanching Machine Operator: Dimas Chandler MD BUN/CRE Ratio 16 Normal 9-20 [facility] Comment on above: Performed By: #### U AX, UMICAO #### [facility] [address] [place], [place] [id number] Blanching Machine Operator: Dimas Chandler MD Calcium [Mass/Vol] 8.4 mg/dL Low 8.6-10.4 [facility] Comment on above: Performed By: #### U AX, UMICAO #### [facility] [address] [place], [place] 6144983 Blanching Machine Operator: Dimas Chandler MD Chloride [Moles/Vol] 110 mmol/L High 98-107 [facility] Comment on above: Performed By: #### U AX, UMICAO #### [facility] [facility] [address] [place] [address] [employer]anching [employer] Operator: Dimas Chandler MD CO2 [Moles/Vol] 21 mmol/L Normal 20-31 [facility] Comment on above: Performed By: #### U AX, UMICAO #### [facility] [address] [place], [place] [id number] [employer] Operator: Dimas Chandler MD Creatinine [Mass/Vol] 4.3 mg/dL High 0.70-1.20 [facility] Comment on above: Performed By: #### U AX, UMICAO #### [facility] [address] [place] [address] [employer]anching Machine Operator: Dimas Chandler MD GFR/1.73 sq M.predicted among non-blacks MDRD (S/P/Bld) [Vol rate/Area] 13 mL/min/{1.73_m2} Low >60 [facility] Comment on above: Result Comment: These results are not intended [...] following therapy that affects renal tubular secretion. Performed By: #### U AX, UMICAO #### [facility] [address] [place] [address] [employer]anching [employer] Operator: Dimas Chandler MD Glucose [Mass/Vol] 99 mg/dL Normal 74-99 [facility] Comment on above: Performed By: #### U AX, UMICAO #### [facility] [address] [place], [place] [id number] Blanching Machine Operator: Dimas Chandler MD Potassium [Moles/Vol] 3.8 mmol/L Normal 3.7-5.3 [facility] Comment on above: Performed By: #### U AX, DOMICAO #### [facility] [address] [place] [address] Blanching Machine Operator: Dimas Chandler MD Sodium [Moles/Vol] 143 mmol/L Normal 136-145 [facility] Comment on above: Performed By: #### U AX, DOMICAO #### [facility] [address] [place] [address] Blanching Machine Operator: Dimas Chandler MD Urea nitrogen [Mass/Vol] 69 mg/dL High 8-23 [facility] Comment on above: Performed By: #### U EDMUNDO, KOMALO #### [facility] [address] [place] [address] Blanching [employer] Operator: Dimas Chandler MD Basic Metabolic Panel w/ Ref jass to MGon 01-25-2025 Anion gap [Moles/Vol] 12 mmol/L 9 - 16 mmol/L [facility] Calcium [Mass/Vol] 8.4 mg/dL Low 8.6 - 10. 4 mg/dL [facility] Chloride [Moles/Vol] 110 mmol/L High 98 - 10 7 mmol/L [facility] CO2 [Moles/Vol] 21 mmol/L 20 - 31 mmol/L [facility] Creatinine [Mass/Vol] 4.3 mg/dL High 0.70 - 1.20 mg/dL [facility] Est, Glom Filt Rate 13 Low - PINF [facility] Comment on above: These results are not intended for use [...] following therapy that affects renal tubular secretion. Glucose [Mass/Vol] 99 mg/dL 74 - 99 mg/dL [facility] Interpretation and review of laboratory results Abnormal [facility] Potassium [Moles/Vol] 3.8 mmol/L 3.7 - 5.3 mmol/L [facility] Sodium [Moles/Vol] 143 mmol/L 136 - 145 mmol/L [facility] Urea nitrogen [Mass/Vol] 69 mg/dL High 8 - 23 mg/dL [facility] Urea nitrogen/Creatinine [Mass ratio] 16 mg/mg 9 - 20 [facility] CBC auto differentialon 01-02 Basophils (Bld) [#/Vol] 0.06 10*3/uL [facility] Basophils/100 WBC (Bld) 1 % 0 - 2 % [facility] Eosinophils (Bld) [#/Vol] 0.09 10*3/uL [facility] Eosinophils/100 WBC (Bld) 2 % 1 - 4 % [facility] Erythrocyte distribution width (RBC) [Ratio] 16 % High 11.8 - 14.4 % [facility] Hematocrit (Bld) [Volume fraction] 26.1 % Low 40.7 - 50.3 % [facility] Hemoglobin (Bld) [Mass/Vol] 8.3 g/dL Low 13.0 - 17.0 g/dL [facility] Immature granulocytes (Bld) [#/Vol] 0.05 10*3/uL [facility] Immature granulocytes/100 WBC (Bld) 1 % High 0 [facility] Interpretation and review of laboratory results Abnormal [facility] Lymphocytes/100 WBC (Bld) 24 % 24 - 43 % [facility] Lymphocytes/100 WBC (Bld) 1.4 % [facility] MCH (RBC) [Entitic mass] 27.4 pg 25.2 - 33.5 pg [facility] MCHC (RBC) [Mass/Vol] 31.8 g/dL 28.4 - 34.8 g/dL [facility] MCV (RBC) [Entitic vol] 86.1 fL 82.6 - 102.9 fL [facility] Monocytes/100 WBC (Bld) 9 % 3 - 12 % [facility] Monocytes/100 WBC (Bld) 0.52 % [facility] Neutrophils/100 WBC (Bld) 63 % 36 - 65 % [facility] Nucleated RBC/100 WBC (Bld) [Ratio] 0 % 0.0 per 100 WBC [facility] Platelet mean volume (Bld) [Entitic vol] 10.9 fL 8.1 - 13.5 fL [facility] Platelets (Bld) [#/Vol] 511 10*3/uL High [facility] RBC (Bld) [#/Vol] 3.03 10*6/uL Low 4.21 - 5.7 7 m/uL [facility] Segmented neutrophils/100 WBC (Bld) 3.76 % [facility] WBC other (Bld) [#/Vol] 5.9 [facility] CBC with Diffon 01-25-2025 Abs. Basophil 0.06 k/uL Normal 0.00-0.20 [facility] Comment on above: Performed By: #### U NATALYA WYATT #### [facility] [address] [place] [address] [place] [address] Blanching Machine Operator: Dimas Chandler MD Abs.Imm.Granulocyte 0.05 k/uL Normal 0.00-0.30 [facility] Comment on above: Performed By: #### U NATALYA WYATT #### [facility] [address] [place] [address] [place] [address] Blanching Machine Operator: Dimas Chandler MD Abs.Neutrophil (Seg) 3.76 k/uL Normal 1.50-8.10 [facility] Comment on above: Performed By: #### U NATALYA WYATT #### [address] [place] [address] Blanching Machine Operator: Dimas Chandler MD Basophils/100 WBC (Bld) 1 % Normal 0-2 [facility] Comment on above: Performed By: #### U KOMAL WYATTO #### [facility] [address] [place] [address] [place], [place] [id number] [employer] Machine Operator: Dimas Chandler MD Eosinophils (Bld) [#/Vol] 0.09 10*3/uL Normal 0.00-0.44 [facility] Comment on above: Performed By: #### U AX, UMICAO #### [address] [place], [place] [id number] Blanching Machine Operator: Dimas Chandler MD Eosinophils/100 WBC (Bld) 2 % Normal 1-4 [facility] Comment on above: Performed By: #### U AX, UMICAO #### [address] [place], [facility] Bl[employer] Operator: Dimas Chandler MD Erythrocyte distribution width (RBC) [Ratio] 16.0 % High 11.8-14.4 [facility] Comment on above: Performed By: #### U AX, UMICAO #### [address] [place], [facility] Blanching Machine Operator: Dimas Chandler MD Hematocrit (Bld) [Volume fraction] 26.1 % Low 40.7-50.3 [facility] Comment on above: Performed By: #### U AX, UMICAO #### [address] [place], [facility] Blanching Machine Operator: Dimas Chandler MD Hemoglobin (Bld) [Mass/Vol] 8.3 g/dL Low 13.0-17.0 [facility] Comment on above: Performed By: #### U AX, UMICAO #### [address] [place], [place] 2137283 Blanching Machine Operator: Dimas Chandler MD Immature granulocytes/100 WBC (Bld) 1 % High 0 [facility] Comment on above: Performed By: #### U AX, UMICAO #### [address] [place], [facility]83 Blanching Machine Operator: Dimas Chandler MD Lymphocytes (Bld) [#/Vol] 1.40 10*3/uL Normal 1.10-3.70 [facility] Comment on above: Performed By: #### U AX, UMICAO #### [facility] [address] [place], [place] [id number] Blanching Machine Operator: Dimas Chandler MD Lymphocytes/100 WBC (Bld) 24 % Normal 24-43 [facility] Comment on above: Performed By: #### U AX, UMICAO #### [facility] [address] [place], [place] [id number] Blanching Machine Operator: Dimas Chandler MD MCH (RBC) [Entitic mass] 27.4 pg Normal 25.2-33.5 [facility] Comment on above: Performed By: #### U AX, DOMICAO #### [address] [place], [place] 1152283 Blanching Machine Operator: Dimas Chandler MD MCHC (RBC) [Mass/Vol] 31.8 g/dL Normal 28.4-34.8 [facility] Comment on above: Performed By: #### U AX, UMICAO #### [address] [place], [place] [address]83 Blanching Machine Operator: Dimas Chandler MD MCV (RBC) [Entitic vol] 86.1 fL Normal 82.6-102.9 [facility] Comment on above: Performed By: #### U AX, UMICAO #### [address] [place], [place] 380[address]83 Blanching Machine Operator: Dimas Chandler MD Monocytes (Bld) [#/Vol] 0.52 10*3/uL Normal 0.10-1.20 [facility] Comment on above: Performed By: #### U AX, UMICAO #### [address] [place], [place] 4443883 Blanching Machine Operator: Dimas Chandler MD Monocytes/100 WBC (Bld) 9 % Normal 3-12 [facility] Comment on above: Performed By: #### U AX, UMICAO #### [facility] [address] [place], [place] 1499083 Blanching Machine Operator: Dimas Chandler MD Neutrophil (Seg) 63 % Normal 36-65 [facility] Comment on above: Performed By: #### U AX, UMICAO #### [facility] [address] [place], [place] 267[address]83 Blanching Machine Operator: Dimas Chandler MD NRBC Automated 0.0 per 100 WBC Normal 0.0 [facility] Comment on above: Performed By: #### U AX, UMICAO #### [address] [place], [place] [address]83 Blanching Machine Operator: Dimas Chandler MD Platelet mean volume (Bld) [Entitic vol] 10.9 fL Normal 8.1-13.5 [facility] Comment on above: Performed By: #### U AXKOMALO #### [address] [place], [place] [address]83 Blanching Machine Operator: Dimas Chandler MD Platelets (Bld) [#/Vol] 511 10*3/uL High 138-453 [facility] Comment on above: Performed By: #### U AX, UMICAO #### [facility] [address] [place] [address] [place], [place] [id number] Blanching Machine Operator: Dimas Chandler MD RBC (Bld) [#/Vol] 3.03 10*6/uL Low 4.21-5.77 [facility] Comment on above: Performed By: #### U AX, UMICAO #### [address] [place], [place] 305[address]283 Blanching Machine Operator: Dimas Chandler MD WBC (Bld) [#/Vol] 5.9 10*3/uL Normal 3.5-11.3 [facility] Comment on above: Performed By: #### U NATALYA WYATT #### [facility] [address] [place] [address] Blanching Machine Operator: Dimas Chandler MD EKG 12 LeadOrdered By: Joel Velasquez on 01-25-2025 Atrial Rate 81 BPM [employer] Work Phone: P [place] 75 degrees [employer] Work Phone: P-R Interval 156 ms [employer] Phone: Q-T Interval 412 ms [employer] Work Phone: QRS Duration 88 ms [employer] Phone: QTc Calculation (Bazett) 478 ms [employer] Phone: R [place] 22 degrees [employer] Work Phone: T [place] 64 degrees [employer] Work Phone: Ventricular Rate 81 BPM [place] [employer] Work Phone: [employer] Phone: EKG 12 Leadon 01-25-2025 Normal sinus rhythm Normal ECG No previous ECGs available Confirmed by SETH VELASQUEZ ([id number]) on 01/25/2025 5:57:02 PM [facility] Seth Velasquez MD - 01/25/2025 Normal sinus rhythm Normal ECG No previous ECGs available Confirmed by SETH VELASQUEZ ([id number]) on 01/25/2025 5:57:02 PM [employer] Haptoglobinon 01-25-2025 Haptoglobin [Mass/Vol] 347 mg/dL High 30 - 200 mg/dL [facility] Haptoglobin 347 mg/dL High 30-200 [facility] Comment on above: Performed By: #### U NATALYA WYATT #### [facility] [address] [place] [address] Blanching Machine Operator: Dimas Chandler MD Iron Binding Cap.on 01-26-20 25 % Fe Saturation 16 % Low 20-55 [facility] Comment on above: Performed By: #### U AX, UMICAO #### [facility] [address] [place], [place] 506[address]83 Blanching Machine Operator: Dimas Chandler MD Iron [Mass/Vol] 31 ug/dL Low 61-157 [facility] Comment on above: Performed By: #### U AX, DOMICAO #### [facility] [address] [place] [address] [place], [place] 3712483 Blanching Machine Operator: Dmias Chandler MD Total Fe Binding Cap 191 ug/dL Low 250-450 [facility] Comment on above: Performed By: #### U AX, DOMICAO #### [facility] [address] [place], [place] 1757183 Blanching Machine Operator: Dimas Chandler MD Unbound Fe Bind Cap 160 ug/dL Normal 112-347 [facility] Comment on above: Performed By: #### U AX, DOMICAO #### [facility] [address] [place] [address] [place], [place] 4239483 Blanching Machine Operator: Dimas Chandler MD Iron and TIBCon 01-25-2025 Iron [Mass/Vol] 31 ug/dL Low 61 - 157 ug/dL [facility] Iron binding capacity [Mass/Vol] 191 ug/dL Low 250 - 450 ug/dL [facility] Iron saturation [Mass fraction] 16 % Low 20 - 55 % [facility] UIBC 160 ug/dL 112 - 347 ug/dL [facility] No Panel Informationon 01-25 Interpretation and review of laboratory results Abnormal [facility] Retic Counton 01-25-2025 Absolute Retic 0.013 M/uL Low 0.030-0.080 [facility] Comment on above: Performed By: #### U AX, UMICAO #### [facility] [address] [place], [place] [address]28383 Blanching Machine Operator: Dimas Chandler MD IRF 3.6 % Normal 2.7-18.3 [facility] Comment on above: Performed By: #### U AX, UMICAO #### [facility] [address] [place], [place] 0135383 Blanching Machine Operator: Dimas Chandler MD Retic Count 0.4 % Low 0.5-1.9 [facility] Comment on above: Performed By: #### U AX, UMICAO #### [facility] [address] [place], [place] [address]83 Blanching Machine Operator: Dimas Chandler MD Retic Hemoglobin 24.5 pg Low 28.2-35.7 [facility] Comment on above: Performed By: #### U AX, UMICAO #### [facility] [address] [place], [place] 58[address]83 Blanching Machine Operator: Dimas Chandler MD Reticulocyteson 01-25-2025 Immature reticulocytes/Total reticulocytes (Bld) 3.6 % 2.7 - 18.3 % [facility] Interpretation and review of laboratory results Abnormal [facility] Retic Hemoglobin 24.5 pg Low 28.2 - 35.7 pg [facility] Reticulocytes (Bld) [#/Vol] 0.013 10*3/uL Low [facility] Reticulocytes/100 RBC (Bld) 0.4 % Low 0.5 - 1.9 % [facility] Vitamin B12 & Folateon 01-25 Cobalamin (Vitamin B12) [Mass/Vol] pg/mL High 232 - 1245 pg/mL [facility] Folate [Mass/Vol] 17.6 ng/mL 4.8 - 24.2 ng/mL [facility] Interpretation and review of laboratory results Abnormal [facility] CBC with Auto Differentialon 01-24-2025 Basophils (Bld) [#/Vol] 0.04 10*3/uL [facility] Basophils/100 WBC (Bld) 1 % 0 - 2 % [facility] Eosinophils (Bld) [#/Vol] 0.15 10*3/uL [facility] Eosinophils/100 WBC (Bld) 2 % 1 - 4 % [facility] Erythrocyte distribution width (RBC) [Ratio] 16.1 % High 11.8 - 14.4 % [facility] Hematocrit (Bld) [Volume fraction] 28.9 % Low 40.7 - 50.3 % [facility] Hemoglobin (Bld) [Mass/Vol] 9.2 g/dL Low 13.0 - 17.0 g/dL [facility] Immature granulocytes (Bld) [#/Vol] 0.07 10*3/uL [facility] Immature granulocytes/100 WBC (Bld) 1 % High 0 [facility] Interpretation and review of laboratory results Abnormal [facility] Lymphocytes/100 WBC (Bld) 17 % Low 24 - 43 % [facility] Lymphocytes/100 WBC (Bld) 1.33 % [facility] MCH (RBC) [Entitic mass] 26.9 pg 25.2 - 33.5 pg [facility] MCHC (RBC) [Mass/Vol] 31.8 g/dL 28.4 - 34.8 g/dL [facility] MCV (RBC) [Entitic vol] 84.5 fL 82.6 - 102.9 fL [facility] Monocytes/100 WBC (Bld) 7 % 3 - 12 % [facility] Monocytes/100 WBC (Bld) 0.54 % [facility] Neutrophils/100 WBC (Bld) 73 % High 36 - 65 % [facility] Nucleated RBC/100 WBC (Bld) [Ratio] 0 % 0.0 per 100 WBC [facility] Platelet mean volume (Bld) [Entitic vol] 10.6 fL 8.1 - 13.5 fL [facility] Platelets (Bld) [#/Vol] 547 10*3/uL High [facility] RBC (Bld) [#/Vol] 3.42 10*6/uL Low 4.21 - 5.7 7 m/uL [facility] Segmented neutrophils/100 WBC (Bld) 5.7 % [facility] WBC other (Bld) [#/Vol] 7.8 [facility] CBC with Diffon 01-24-2025 Abs. Basophil 0.04 k/uL Normal 0.00-0.20 [facility] Comment on above: Performed By: #### U AX, UMICAO #### [facility] [address] [place] [address] [employer]anching [employer] Operator: Dimas Chandler MD Abs.Imm.Granulocyte 0.07 k/uL Normal 0.00-0.30 [facility] Comment on above: Performed By: #### U AXDOMICAO #### [facility] [address] [place], [place] 06[address]383 Blanching Machine Operator: Dimas Chandler MD Abs.Neutrophil (Seg) 5.70 k/uL Normal 1.50-8.10 [facility] Comment on above: Performed By: #### U AX, DOMICAO #### [facility] [address] [place], [place] 655[address]83 Blanching Machine Operator: Dimas Chandler MD Basophils/100 WBC (Bld) 1 % Normal 0-2 [facility] Comment on above: Performed By: #### U AX, UMICAO #### [facility] [address] [place], [place] 4457183 Blanching Machine Operator: Dimas Chandler MD Eosinophils (Bld) [#/Vol] 0.15 10*3/uL Normal 0.00-0.44 [facility] Comment on above: Performed By: #### U AX, UMICAO #### [facility] [address] [place] [address] Blanching Machine Operator: Dimas Chandler MD Eosinophils/100 WBC (Bld) 2 % Normal 1-4 [facility] Comment on above: Performed By: #### U AX, DOMICAO #### [facility] [address] [place], [place] 3431383 Blanching Machine Operator: iDmas Chandler MD Erythrocyte distribution width (RBC) [Ratio] 16.1 % High 11.8-14.4 [facility] Comment on above: Performed By: #### U AX, UMICAO #### [address] [place], [place] 5170583 Blanching Machine Operator: Dimas Chandler MD Hematocrit (Bld) [Volume fraction] 28.9 % Low 40.7-50.3 [facility] Comment on above: Performed By: #### U AXDOMICAO #### [address] [place], [place] 7040683 Blanching Machine Operator: Dimas Chandler MD Hemoglobin (Bld) [Mass/Vol] 9.2 g/dL Low 13.0-17.0 [facility] Comment on above: Performed By: #### U AXDOMICAO #### [address] [place], [place] [address]199983 Blanching Machine Operator: Dimas Chandler MD Immature granulocytes/100 WBC (Bld) 1 % High 0 [facility] Comment on above: Performed By: #### U AX, UMICAO #### [facility] [address] [place] [address] [place], [place] 6901683 Blanching Machine Operator: Dimas Chandler MD Lymphocytes (Bld) [#/Vol] 1.33 10*3/uL Normal 1.10-3.70 [facility] Comment on above: Performed By: #### U AX, UMICAO #### [address] [place], [place] [address]40[address]83 Blanching Machine Operator: Dimas Chandler MD Lymphocytes/100 WBC (Bld) 17 % Low 24-43 [facility] Comment on above: Performed By: #### U AX, UMICAO #### [facility] [address] [place], [place] [address] Blanching Machine Operator: Dimas Chandler MD MCH (RBC) [Entitic mass] 26.9 pg Normal 25.2-33.5 [facility] Comment on above: Performed By: #### U AX, UMICAO #### [facility] [address] [place], [facility] Blanching Machine Operator: Dimas Chandler MD MCHC (RBC) [Mass/Vol] 31.8 g/dL Normal 28.4-34.8 [facility] Comment on above: Performed By: #### U AX, UMICAO #### [facility] [address] [place] [address] Blanching Machine Operator: Dimas Chandler MD MCV (RBC) [Entitic vol] 84.5 fL Normal 82.6-102.9 [facility] Comment on above: Performed By: #### U AX UMICAO #### [facility] [address] [place], [place] [address] Blanching Machine Operator: Dimas Chandler MD Monocytes (Bld) [#/Vol] 0.54 10*3/uL Normal 0.10-1.20 [facility] Comment on above: Performed By: #### U AX, UMICAO #### [facility] [address] [place], [facility]83 Blanching Machine Operator: Dimas Chandler MD Monocytes/100 WBC (Bld) 7 % Normal 3-12 [facility] Comment on above: Performed By: #### U AX, UMICAO #### [facility] [address] [place], [place] [address]78483 Blanching Machine Operator: Dimas Chandler MD Neutrophil (Seg) 73 % High 36-65 [facility] Comment on above: Performed By: #### U AX, UMICAO #### [facility] [address] [place], [place] 459[address]83 Blanching Machine Operator: Dimas Chandler MD NRBC Automated 0.0 per 100 WBC Normal 0.0 [facility] Comment on above: Performed By: #### U AX, UMICAO #### [facility] [address] [place], [place] 26[address]83 Blanching Machine Operator: Dimas Chandler MD Platelet mean volume (Bld) [Entitic vol] 10.6 fL Normal 8.1-13.5 [facility] Comment on above: Performed By: #### U KOMAL WYATTO #### [facility] [address] [place], [facility] [employer] Operator: Dimas Chandler MD Platelets (Bld) [#/Vol] 547 10*3/uL High 138-453 [facility] Comment on above: Performed By: #### U KOMAL WYATTO #### [address] [place], [place] [address]19183 [employer] Operator: Dimas Chandler MD RBC (Bld) [#/Vol] 3.42 10*6/uL Low 4.21-5.77 [facility] Comment on above: Performed By: #### U AXDOMICAO #### [facility] [address] [place], [facility] [employer] Operator: Dimas Chandler MD WBC (Bld) [#/Vol] 7.8 10*3/uL Normal 3.5-11.3 [facility] Comment on above: Performed By: #### U AXDOMICAO #### [facility] [address] [place] [address] [employer] Operator: Dimas Chandler MD CMPon 01-24-2025 Albumin [Mass/Vol] 3.2 g/dL Low 3.5 - 5.2 g/dL [facility] Albumin/Globulin [Mass ratio] 0.7 {ratio} Low 1.0 - 2.5 [facility] ALP [Catalytic activity/Vol] 94 U/L 40 - 129 U/L [facility] ALT [Catalytic activity/Vol] 16 U/L 10 - 50 U/L [facility] Anion gap [Moles/Vol] 14 mmol/L 9 - 16 mmol/L [facility] AST [Catalytic activity/Vol] 20 U/L 10 - 50 U/L [facility] Bilirubin [Mass/Vol] 0.3 mg/dL 0.00 - 1.20 mg/dL [facility] Calcium [Mass/Vol] 9.1 mg/dL 8.6 - 10. 4 mg/dL [facility] Chloride [Moles/Vol] 103 mmol/L 98 - 10 7 mmol/L [facility] CO2 [Moles/Vol] 22 mmol/L 20 - 31 mmol/L [facility] Creatinine [Mass/Vol] 5.4 mg/dL Critically high 0.7 0 - 1.20 mg/dL [facility] Est, Glom Filt Rate 10 Low - PINF [facility] Comment on above: These results are not intended for use [...] following therapy that affects renal tubular secretion. Glucose [Mass/Vol] 118 mg/dL High 74 - 99 mg/dL [facility] Interpretation and review of laboratory results Abnormal [facility] Potassium [Moles/Vol] 3.7 mmol/L 3.7 - 5.3 mmol/L [facility] Protein [Mass/Vol] 7.8 g/dL 6.6 - 8.7 g/dL [facility] Sodium [Moles/Vol] 139 mmol/L 136 - 145 mmol/L [facility] Urea nitrogen [Mass/Vol] 80 mg/dL High 8 - 23 mg/dL [facility] Urea nitrogen/Creatinine [Mass ratio] 15 mg/mg 9 - [address] [facility] [address] ABDOMEN PELVIS WO CONTRAS Ton 01-24-2025 CT ABDOMEN PELVIS WO CONTRAST EXAMINATION: CT OF THE ABDOMEN AND PELVIS [...] of the umbilicus. Is no free fluid. Peritoneum/Retroperiton eum: No evidence of lymphadenopathy. Aorta is normal [...] by: Nicolas Chaudhary MD 01/24/25 Final result Normal [facility] CT Abdomen and Pelvis WO con traston 01-24-2025 1. Severely distende d bladder extending to the level of the umbilicus with moderate bilateral hydronephrosis and hydroureter which is likely related. No ureteral stone is identified. The findings suggest bladder outlet obstruction. 2. Mild prostatomegaly. 3. Moderate amount of stool in the rectum with mild to moderate rectal distension. [facility] CON[facility] EXAMINATION: CT OF THE ABDOMEN AND PELVIS [...] of the umbilicus. Is no free fluid. Peritoneum/Retroperiton eum: No evidence of lymphadenopathy. Aorta is normal in caliber. No fat stranding, free fluid, free air or focal fluid collection is identified. Bones/Soft Tissues: No fracture or suspicious bone lesion is identified. [facility] Nicolas Chaudhary MD - 01/24/2025 EXAMINATION: CT OF THE ABDOMEN AND PELVIS [...] of the umbilicus. Is no free fluid. Peritoneum/Retroperiton eum: No evidence of lymphadenopathy. Aorta is normal [...] rectum with mild to moderate rectal distension. [facility] Radiology Study observation (narrative) [facility] CT Abdomen and Pelvis WO con trastOrdered By: Nicolas Chaudhary on 01-24-2025 [facility] Work Phone: Comp Metabolic Profon 2024 Albumin [Mass/Vol] 3.2 g/dL Low 3.5-5.2 [facility] Comment on above: Performed By: #### B MP, CBC #### [facility] [address] [place] [address] Blanching Machine Operator: Dimas Chandler MD #### LIPR #### [facility] Outline App [address] [place] [address] Blanching Machine Operator: David Tate MD Albumin/Glob Ratio 0.7 Low 1.0-2.5 [facility] Comment on above: Performed By: #### B MP, CBC #### [facility] [address] [place], [place] [id number] Blanching Machine Operator: Dimas Chandler MD #### LIPR #### [address] [address] Blanching Machine Operator: David Tate MD Alkaline Phos 94 U/L Normal 40-129 [facility] Comment on above: Performed By: #### B MP, CBC #### [facility] [address] [place], [place] [phone] Blanching Machine Operator: Dimas Chandler MD #### LIPR #### [address] [address] Blanching Machine Operator: David Tate MD ALT [Catalytic activity/Vol] 16 U/L Normal 10-50 [facility] Comment on above: Performed By: #### B MP, CBC #### [facility] [address] [place], [place] [phone] Blanching Machine Operator: Dimas Chandler MD #### LIPR #### [address] [address] Blanching Machine Operator: David Tate MD Anion gap [Moles/Vol] 14 mmol/L Normal 9-16 [facility] Comment on above: Performed By: #### B MP, CBC #### [facility] [address] [place] [address] Blanching Machine Operator: Dimas Chandler MD #### LIPR #### [address] [address] Blanching Machine Operator: David Tate MD AST [Catalytic activity/Vol] 20 U/L Normal 10-50 [facility] Comment on above: Performed By: #### B MP, CBC #### [address] [place], [place] [phone] Blanching Machine Operator: Dimas Chandler MD #### LIPR #### [address] [phone] Blanching Machine Operator: David Tate MD Bilirubin [Mass/Vol] 0.3 mg/dL Normal 0.00-1.20 [facility] Comment on above: Performed By: #### B MP, CBC #### [facility] [address] [place] [address] [place], [place] [phone] Blanching Machine Operator: Dimas Chandler MD #### LIPR #### [address] [phone] Blanching Machine Operator: David Tate MD BUN/CRE Ratio 15 Normal 9-20 [facility] Comment on above: Performed By: #### B JAVIER, CBC #### [address] [place] [phone] Blanching Machine Operator: Dimas Chandler MD #### LIPR #### [address] [address] Blanching Machine Operator: David Tate MD Calcium [Mass/Vol] 9.1 mg/dL Normal 8.6-10.4 [facility] Comment on above: Performed By: #### B MP, CBC #### [address] [place], [place] 5890283 Blanching Machine Operator: Dimas Chandler MD #### LIPR #### [address] [address] Blanching Machine Operator: David Tate MD Chloride [Moles/Vol] 103 mmol/L Normal 98-107 [facility] Comment on above: Performed By: #### B MP, CBC #### [address] [place], [place] 7731783 Blanching Machine Operator: Dimas Chandler MD #### LIPR #### [facility] [address] [place] [address] Blanching Machine Operator: David Tate MD CO2 [Moles/Vol] 22 mmol/L Normal 20-31 [facility] Comment on above: Performed By: #### B MP, CBC #### [facility] [address] [place], [place] 4871283 Blanching Machine Operator: Dimas Chandler MD #### LIPR #### [address] [address] Blanching Machine Operator: David Tate MD Creatinine [Mass/Vol] 5.4 mg/dL Critically high 0.70-1.20 [facility] Comment on above: Performed By: #### B MP, CBC #### [facility] [address] [place], [place] 9656283 Blanching Machine Operator: Dimas Chandler MD #### LIPR #### [address] [address] Blanching Machine Operator: David Tate MD GFR/1.73 sq M.predicted among non-blacks MDRD (S/P/Bld) [Vol rate/Area] 10 mL/min/{1.73_m2} Low >60 [facility] Comment on above: Result Comment: These results are not intended [...] following therapy that affects renal tubular secretion. Performed By: #### B MP, CBC #### [facility] [address] [place], [place] 9328283 Blanching Machine Operator: Dimas Chandler MD #### LIPR #### [address] [address] Blanching Machine Operator: David Tate MD Glucose [Mass/Vol] 118 mg/dL High 74-99 [facility] Comment on above: Performed By: #### B MP, CBC #### [facility] [address] [place] [address] [place], [place] [phone] Blanching Machine Operator: Dimas Chandler MD #### LIPR #### [address] [address] Blanching Machine Operator: David Tate MD Potassium [Moles/Vol] 3.7 mmol/L Normal 3.7-5.3 [facility] Comment on above: Performed By: #### B JAVIER, CBC #### [address] [place], [place] 9053883 Blanching Machine Operator: Dimas Chandler MD #### LIPR #### [address] [address] Blanching Machine Operator: David Tate MD Protein [Mass/Vol] 7.8 g/dL Normal 6.6-8.7 [facility] Comment on above: Performed By: #### B JAVIER, CBC #### [address] [place], [place] 2977683 Blanching Machine Operator: Dimas Chandler MD #### LIPR #### [address] [address] Blanching Machine Operator: David Tate MD Sodium [Moles/Vol] 139 mmol/L Normal 136-145 [facility] Comment on above: Performed By: #### B MP, CBC #### [address] [place], [place] 5700183 Blanching Machine Operator: Dimas Chandler MD #### LIPR #### [address] [address] Blanching Machine Operator: David Tate MD Urea nitrogen [Mass/Vol] 80 mg/dL High 8-23 [facility] Comment on above: Performed By: #### B MP, CBC #### [facility] [address] [place], [place] 2735983 Blanching Machine Operator: Dimas Chandler MD #### LIPR #### [address] [address] Blanching Machine Operator: David Tate MD Albumin [Mass/Vol] 3.1 g/dL Low 3.5-5.2 [facility] Comment on above: Performed By: #### B MP, CBC #### [facility] [address] [place], [place] 6930883 Blanching Machine Operator: Dimas Chandler MD #### LIPR #### [address] [address] Blanching Machine Operator: David Tate MD Albumin/Glob Ratio 0.8 Low 1.0-2.5 [facility] Comment on above: Performed By: #### B MP, CBC #### [facility] [address] [place], [place] [phone] Blanching Machine Operator: Dimas Chandler MD #### LIPR #### [address] [address] Blanching Machine Operator: David Tate MD Alkaline Phos 98 U/L Normal 40-129 [facility] Comment on above: Performed By: #### B MP, CBC #### [facility] [address] [place], [place] 4559383 Blanching Machine Operator: Dimas Chandler MD #### LIPR #### [address] [address] Blanching Machine Operator: David Tate MD ALT [Catalytic activity/Vol] 14 U/L Normal 10-50 [facility] Comment on above: Performed By: #### B MP, CBC #### [address] [place], [place] 8455783 Blanching Machine Operator: Dimas Chandler MD #### LIPR #### [address] [phone] Blanching Machine Operator: David Tate MD Anion gap [Moles/Vol] 15 mmol/L Normal 9-16 [facility] Comment on above: Performed By: #### B MP, CBC #### [address] [place], [place] 9208183 Blanching Machine Operator: Dimas Chandler MD #### LIPR #### [address] [phone] Blanching Machine Operator: David Tate MD AST [Catalytic activity/Vol] 21 U/L Normal 10-50 [facility] Comment on above: Performed By: #### B MP, CBC #### [address] [place] 3043783 Blanching Machine Operator: Dimas Chandler MD #### LIPR #### [address] [address] Blanching Machine Operator: David Tate MD Bilirubin [Mass/Vol] 0.3 mg/dL Normal 0.00-1.20 [facility] Comment on above: Performed By: #### B MP, CBC #### [address] [place], [place] 2686283 Blanching Machine Operator: Dimas Chandler MD #### LIPR #### [address] [phone] Blanching Machine Operator: David Tate MD BUN/CRE Ratio 15 Normal 9-20 [facility] Comment on above: Performed By: #### B MP, CBC #### [address] [place] [address] Blanching Machine Operator: Dimas Chandler MD #### LIPR #### [address] [phone] Blanching Machine Operator: David Tate MD Calcium [Mass/Vol] 8.8 mg/dL Normal 8.6-10.4 [facility] Comment on above: Performed By: #### B MP, CBC #### [address] [place], [place] 6215883 Blanching Machine Operator: Dimas Chandler MD #### LIPR #### [address] [address] Blanching Machine Operator: David Tate MD Chloride [Moles/Vol] 105 mmol/L Normal 98-107 [facility] Comment on above: Performed By: #### B MP, CBC #### [address] [place] [address] Blanching Machine Operator: Dimas Chandler MD #### LIPR #### [address] [phone] Blanching Machine Operator: David Tate MD CO2 [Moles/Vol] 20 mmol/L Normal 20-31 [facility] Comment on above: Performed By: #### B MP, CBC #### [address] [place], [place] 1451583 Blanching Machine Operator: Dimas Chandler MD #### LIPR #### [address] [address] Blanching Machine Operator: David Tate MD Creatinine [Mass/Vol] 5.6 mg/dL Critically high 0.70-1.20 [facility] Comment on above: Performed By: #### B MP, CBC #### [address] [place], [place] 9417383 Blanching Machine Operator: Dimas Chandler MD #### LIPR #### [address] [phone] Blanching Machine Operator: David Tate MD GFR/1.73 sq M.predicted among non-blacks MDRD (S/P/Bld) [Vol rate/Area] 10 mL/min/{1.73_m2} Low >60 [facility] Comment on above: Result Comment: These results are not intended [...] following therapy that affects renal tubular secretion. Performed By: #### B JAVIER, CBC #### [address] [place] [address] Blanching Machine Operator: Dimas Chandler MD #### LIPR #### [address] [address] Blanching Machine Operator: David Tate MD Glucose [Mass/Vol] 107 mg/dL High 74-99 [facility] Comment on above: Performed By: #### B JAVIER, CBC #### [address] [place], [place] 2496883 Blanching Machine Operator: Dimas Chandler MD #### LIPR #### [address] [address] Blanching Machine Operator: David Tate MD Potassium [Moles/Vol] 3.7 mmol/L Normal 3.7-5.3 [facility] Comment on above: Performed By: #### B JAVIER, CBC #### [address] [place], [place] 9268683 Blanching Machine Operator: Dimas Chandler MD #### LIPR #### [address] [address] Blanching Machine Operator: David Tate MD Protein [Mass/Vol] 7.2 g/dL Normal 6.6-8.7 [facility] Comment on above: Performed By: #### B MP, CBC #### [facility] [address] [place] [address] [place] [address] Blanching Machine Operator: Dimas Chandler MD #### LIPR #### [address] [phone] Blanching Machine Operator: David Tate MD Sodium [Moles/Vol] 140 mmol/L Normal 136-145 [facility] Comment on above: Performed By: #### B MP, CBC #### [address] [place] [address] Blanching Machine Operator: Dimas Chandler MD #### LIPR #### [address] [phone] Blanching Machine Operator: David Tate MD Urea nitrogen [Mass/Vol] 85 mg/dL High 8-23 [facility] Comment on above: Performed By: #### B MP, CBC #### [address] [place], [place] 7721583 Blanching Machine Operator: Dimas Chandler MD #### LIPR #### [address] [phone] Blanching Machine Operator: David Tate MD Comprehensive Metabolic Pane [facility] 01-24-2025 Albumin/Globulin [Mass ratio] 0.8 {ratio} Low 1.0 - 2.5 [facility] ALP [Catalytic activity/Vol] 98 U/L 40 - 129 U/L [facility] Est, Glom Filt Rate 10 Low - PINF [facility] Comment on above: These results are not intended for use [...] following therapy that affects renal tubular secretion. Interpretation and review of laboratory results Abnormal [facility] Urea nitrogen/Creatinine [Mass ratio] 15 mg/mg 9 - 20 [facility] Microscopic Urinalysison Bacteria LM Ql (Urine sed) 2+ Abnormal None [facility] Character (U) Urine Reflexed to Culture Abnormal NOT REQ. [facility] Epithelial cells LM.HPF (Urine sed) [#/Area] None [facility] Interpretation and review of laboratory results Abnormal [facility] RBC LM.HPF (Urine sed) [#/Area] 0 TO 2 [facility] WBC LM.HPF (Urine sed) [#/Area] 10 TO 20 [facility] PTon 01-24-2025 INR Coag (PPP) [Relative time] 1.1 {INR} Normal [facility] Comment on above: Result Comment: Therapeutic Range: Moderate Anticoagulant Intensity: INR = 2.0-3.0 High Anticoagulant Intensity: INR = 2.5-3.5 Performed By: #### B MP, CBC #### [facility] [address] [place] [address] [place] [phone] Blanching Machine Operator: Dimas Chandler MD #### LIPR #### [address] [address] Blanching Machine Operator: David Tate MD PT Coag (PPP) [Time] 14.1 s Normal 11.7-14.1 [facility] Comment on above: Performed By: #### B MP, CBC #### [facility] [address] [place] [address] [place] [address] Blanching Machine Operator: Dimas Chandler MD #### LIPR #### [address] [address] Blanching Machine Operator: David Tate MD Protime-INRon 01-24-2025 INR Coag (PPP) [Relative time] 1.1 {INR} [facility] Comment on above: Therapeutic Range: Moderate Anticoagulant Intensity: INR = 2.0-3.0 High Anticoagulant Intensity: INR = 2.5-3.5 PT Coag (PPP) [Time] 14.1 s [facility] UA w/Reflex Cultureon 2024 Bilirubin, SemiQt,Ur Negative Normal [facility] Comment on above: Performed By: #### U AX, UMICAO #### [facility] [address] [place] [address] Dr[place], [place] [phone] Blanching Machine Operator: Dimas Chandler MD Blood, Urine 2+ Abnormal NEG [facility] Comment on above: Performed By: #### U AX, UMICAO #### [address] [place], [place] 7660083 Blanching Machine Operator: Dimas Chandler MD Clarity (U) SLIGHTLY CLOUDY Abnormal CLEAR [facility] Comment on above: Performed By: #### U AX, UMICAO #### [facility] [address] [place] [address] Dr[place], [place] 1000583 Blanching Machine Operator: Dimas Chandler MD Color (U) Yellow Normal YEL [facility] Comment on above: Performed By: #### U AX, UMICAO #### [facility] [address] [place] [address] Dr[place], [place] 6559083 Blanching Machine Operator: Dimas Chandler MD Glucose Ql (U) Negative Normal NEG [facility] Comment on above: Performed By: #### U AX, UMICAO #### [facility] [address] [place] [address] Dr. [place], [place] [phone] Blanching Machine Operator: Dimas Chandler MD Ketones Ql (U) Negative Normal NEG [facility] Comment on above: Performed By: #### U AX, UMICAO #### [facility] [address] [place] [address] Dr[place], [place] [phone] Blanching Machine Operator: Dimas Chandler MD Leukocyte esterase Test strip Ql (U) MODERATE Abnormal NEG [facility] Comment on above: Performed By: #### U AX, UMICAO #### [facility] [address] [place], [place] 7446483 Blanching Machine Operator: Dimas Chandler MD Nitrite,Ur Positive Abnormal NEG [facility] Comment on above: Performed By: #### U AX, UMICAO #### [facility] [address] [place] [address] [place] [address] Blanching Machine Operator: Dimas Chandler MD PH,Ur 7.5 Normal 5.0-9.0 [facility] Comment on above: Performed By: #### U AX, UMICAO #### [facility] [address] [place] [address] Dr. [place], [place] [phone] Blanching Machine Operator: Dimas Chandler MD Protein Ql (U) 2+ mg/dL Abnormal NEG [facility] Comment on above: Performed By: #### U AX, UMICAO #### [address] [place], [place] 5024583 Blanching Machine Operator: Dimas Chandler MD Spec. [place],Ur 1.015 Normal 1.010-1.020 [facility] Comment on above: Performed By: #### U AX, UMICAO #### [address] [place], [place] 6232383 Blanching Machine Operator: Dimas Chandler MD Urobilinogen,Ur Normal Normal 0.0-1.0 [facility] Comment on above: Performed By: #### U AX, UMICAO #### [facility] [address] [place], [place] 1298883 Blanching Machine Operator: Dimas Chandler MD Urinalysis with Reflex to Cu ltureon 01-24-2025 Bilirubin Ql (U) Negative NEGATIVE [facility] Clarity (U) SLIGHTLY CLOUDY Abnormal Clear [facility] Color (U) Yellow Yellow [facility] Glucose Test strip (U) [Mass/Vol] Negative NEGATIVE mg/dL [facility] Hemoglobin Auto test strip Ql (U) 2+ Abnormal NEGATIVE [facility] Interpretation and review of laboratory results Abnormal [facility] Ketones (U) [Mass/Vol] Negative NEGAT [place] mg/dL [facility] Leukocyte esterase Test strip Ql (U) MODERATE Abnormal NEGATIVE [facility] Nitrite Ql (U) Positive Abnormal NEGATIVE [facility] pH (U) 7.5 [pH] 5.0 - 9.0 [facility] Protein (U) [Mass/Vol] 2+ Abnormal NEGAT [place] mg/dL [facility] Specific gravity (U) [Rel density] 1.015 1.010 - 1.020 [facility] Urobilinogen Qn (U) Normal 0.0 - 1. 0 EU/dL [facility] Urinalysis,Microon 5 Bacteria 2+ Abnormal NONE [facility] Comment on above: Performed By: #### U AX, UMICAO #### [facility] [address] [place] [address] Blanching Machine Operator: Dimas Chandler MD Epithelial cells LM Ql (Urine sed) None Normal 0-5 [facility] Comment on above: Performed By: #### U AX, UMICAO #### [facility] [address] [place] [address] Blanching Machine Operator: Dimas Chandler MD Other Observations Urine Reflexed to Culture Abnormal NREQ [facility] Comment on above: Performed By: #### U AX, UMICAO #### [facility] [address] [place] [address] Blanching Machine Operator: Dimas Chandler MD Urine RBC's 0 TO 2 Normal 0-2 [facility] Comment on above: Performed By: #### U AX, UMICAO #### [facility] [address] [place] [address] Blanching Machine Operator: Dimas Chandler MD Urine WBC's 10 TO 20 Normal 0-5 [facility] Comment on above: Performed By: #### U AX, UMICAO #### [address] [place], [place] 3843883 Blanching Machine Operator: Dimas Chandler MD Flu A/B Ag Detectionon 01-22 Flu A Ag Detection Negative Normal NEG [facility] Comment on above: Result Comment: for Influenza A Antigen Performed By: #### F LUABA #### [address] [place], [place] 4051083 Blanching Machine Operator: Dimas Chandler MD Flu B Ag Detection Negative Normal NEG [facility] Comment on above: Result Comment: for Influenza B Antigen. Performed By: #### F LUABA #### [address] [place], [place] 8709583 Blanching Machine Operator: Dimas Chandler MD UA w/Reflex Cultureon 2024 Bilirubin, SemiQt,Ur Negative Normal NEG [facility] Comment on above: Performed By: #### B MP, CBC #### [address] [place], [place] [phone] Blanching Machine Operator: Dimas Chandler MD #### LIPR #### [address] [address] Blanching Machine Operator: David Tate MD Blood, Urine 3+ Abnormal NEG [facility] Comment on above: Performed By: #### B MP, CBC #### [address] [place], [place] 9433283 Blanching Machine Operator: Dimas Chandler MD #### LIPR #### [address] [address] Blanching Machine Operator: David Tate MD Clarity (U) Cloudy Abnormal CLEAR [facility] Comment on above: Performed By: #### B MP, CBC #### [facility] [address] [place] [address] Dr[place], [place] 8855283 Blanching Machine Operator: Dimas Chandler MD #### LIPR #### [facility] [address] [place] [address] Blanching Machine Operator: David Tate MD Color (U) Yellow Normal YEL [facility] Comment on above: Performed By: #### B MP, CBC #### [address] [place], [place] 4283483 Blanching Machine Operator: Dimas Chandler MD #### LIPR #### [address] [address] Blanching Machine Operator: David Tate MD Glucose Ql (U) Negative Normal NEG [facility] Comment on above: Performed By: #### B MP, CBC #### [address] [place], [place] 6748183 Blanching Machine Operator: Dimas Chandler MD #### LIPR #### [address] [address] Blanching Machine Operator: David Tate MD Ketones Ql (U) Negative Normal NEG [facility] Comment on above: Performed By: #### B MP, CBC #### [address] [place], [place] 6595583 Blanching Machine Operator: Dimas Chandler MD #### LIPR #### [address] [address] Blanching Machine Operator: David Tate MD Leukocyte esterase Test strip Ql (U) LARGE Abnormal NEG [facility] Comment on above: Performed By: #### B MP, CBC #### [address] [place], [place] 1128783 Blanching Machine Operator: Dimas Chandler MD #### LIPR #### [address] [phone] Blanching Machine Operator: David Tate MD Nitrite,Ur Negative Normal NEG [facility] Comment on above: Performed By: #### B MP, CBC #### [facility] [address] [place] [address] [place], [place] 1515583 Blanching Machine Operator: Dimas Chandler MD #### LIPR #### [address] [address] Blanching Machine Operator: David Tate MD PH,Ur 8.5 Normal 5.0-9.0 [facility] Comment on above: Performed By: #### B MP, CBC #### [facility] [address] [place] [address] [place] [phone] Blanching Machine Operator: Dimas Chandler MD #### LIPR #### [address] [address] Blanching Machine Operator: David Tate MD Protein Ql (U) 2+ mg/dL Abnormal NEG [facility] Comment on above: Performed By: #### B JAVIER, CBC #### [facility] [address] [place] [address] [place] [phone] Blanching Machine Operator: Dimas Chandler MD #### LIPR #### [address] [address] Blanching Machine Operator: David Tate MD Spec. [place],Ur 1.015 Normal 1.010-1.020 [facility] Comment on above: Performed By: #### B MP, CBC #### [facility] [address] [place] [address] [place], [place] 3686583 Blanching Machine Operator: Dimas Chandler MD #### LIPR #### [address] [address] Blanching Machine Operator: David Tate MD Urobilinogen,Ur Normal Normal 0.0-1.0 [facility] Comment on above: Performed By: #### B MP, CBC #### [facility] [address] [place], [place] 7895483 Blanching Machine Operator: Dimas Chandler MD #### LIPR #### [address] [address] Blanching Machine Operator: David Tate MD Urinalysis,Microon 5 Amorphous sediment LM Ql (Urine sed) 2+ Abnormal [facility] Comment on above: Performed By: #### B MP, CBC #### [facility] [address] [place], [place] 0477783 Blanching Machine Operator: Dimas Chandler MD #### LIPR #### [address] [phone] Blanching Machine Operator: David Tate MD Bacteria 4+ Abnormal [facility] Comment on above: Performed By: #### B MP, CBC #### [facility] [address] [place] [address] Dr. [place], [place] [id number] Blanching Machine Operator: Dimas Chandler MD #### LIPR #### [address] [address] Blanching Machine Operator: David Tate MD Crystals LM Nom (Urine sed) [address] [facility] Comment on above: Result Comment: TRIP LE PHOSPHATE Performed By: #### B MP, CBC #### [facility] [address] [place], [place] [id number] Blanching Machine Operator: Dimas Chandler MD #### LIPR #### [address] [address] Blanching Machine Operator: David Tate MD Epithelial cells LM Ql (Urine sed) 0 TO 2 Normal 0-5 [facility] Comment on above: Performed By: #### B MP, CBC #### [facility] [address] [place], [place] [phone] Blanching Machine Operator: Dimas Chandler MD #### LIPR #### [facility] [address] [place], [place] [phone] Blanching Machine Operator: David Tate MD Other Observations Urine Reflexed to Culture Abnormal NREQ [facility] Comment on above: Performed By: #### B MP, CBC #### [facility] [address] [place], [place] [id number] Blanching Machine Operator: Dimas Chandler MD #### LIPR #### [facility] [address] [place] [address] Blanching Machine Operator: David Tate MD Urine RBC's 5 TO 10 Normal 0-2 [facility] Comment on above: Performed By: #### B MP, CBC #### [facility] [address] [place], [place] [phone] Blanching Machine Operator: Dimas Chandler MD #### LIPR #### [address] [place] [address] Blanching Machine Operator: David Tate MD Urine WBC's 50 TO 100 Normal 0-5 [facility] Comment on above: Performed By: #### B MP, CBC #### [facility] [address] [place], [place] [phone] Blanching Machine Operator: Dimas Chandler MD #### LIPR #### [address] [address] Blanching Machine Operator: David Taet MD Basic Metabolic Panelon 03-2 Anion gap [Moles/Vol] 15 mmol/L 9 - 16 mmol/L [facility] Calcium [Mass/Vol] 9.1 mg/dL 8.6 - 10. 4 mg/dL [facility] Chloride [Moles/Vol] 105 mmol/L 98 - 10 7 mmol/L [facility] CO2 [Moles/Vol] 20 mmol/L 20 - 31 mmol/L [facility] Creatinine [Mass/Vol] 3.4 mg/dL High 0.70 - 1.20 mg/dL [facility] Est, Glom Filt Rate 18 Low - PINF [facility] Comment on above: These results are not intended for use [...] following therapy that affects renal tubular secretion. Glucose [Mass/Vol] 141 mg/dL High 74 - 99 mg/dL [facility] Interpretation and review of laboratory results Abnormal [facility] Potassium [Moles/Vol] 4.1 mmol/L 3.7 - 5.3 mmol/L [facility] Sodium [Moles/Vol] 140 mmol/L 136 - 145 mmol/L [facility] Urea nitrogen [Mass/Vol] 39 mg/dL High 8 - 23 mg/dL [facility] Urea nitrogen/Creatinine [Mass ratio] 11 mg/mg - [facility] Basic Metabolic Profon 01-21 Anion gap [Moles/Vol] 15 mmol/L Normal - [facility] Comment on above: Performed By: #### B MP, CBC #### [facility] [address] [place] [address] Blanching Machine Operator: Dimas Chandler MD #### LIPR #### [facility] [address] [place], [place] [phone] Blanching Machine Operator: David Tate MD BUN/CRE Ratio 11 Normal - [facility] Comment on above: Performed By: #### B MP, CBC #### [facility] [address] [place] [address] Blanching Machine Operator: Dimas Chandler MD #### LIPR #### [facility] [address] [place], [place] [phone] Blanching Machine Operator: David Tate MD Calcium [Mass/Vol] 9.1 mg/dL Normal 8.6-10.4 [facility] Comment on above: Performed By: #### B MP, CBC #### [facility] [address] [place], [place] [phone] Blanching Machine Operator: Dimas Chandler MD #### LIPR #### [address] [id number] Blanching Machine Operator: David Tate MD Chloride [Moles/Vol] 105 mmol/L Normal 98-107 [facility] Comment on above: Performed By: #### B MP, CBC #### [facility] [address] [place] [address] [address] [phone] Blanching Machine Operator: Dimas Chandler MD #### LIPR #### [address] [phone] Blanching Machine Operator: David Tate MD CO2 [Moles/Vol] 20 mmol/L Normal 20-31 [facility] Comment on above: Performed By: #### B MP, CBC #### [address] [place], [place] 4128383 Blanching Machine Operator: Dimas Chandler MD #### LIPR #### [address] [address] Blanching Machine Operator: David Tate MD Creatinine [Mass/Vol] 3.4 mg/dL High 0.70-1.20 [facility] Comment on above: Performed By: #### B MP, CBC #### [facility] [address] [place] [address] Dr[place], [place] [phone] Blanching Machine Operator: Dimas Chandler MD #### LIPR #### [address] [address] Blanching Machine Operator: David Tate MD GFR/1.73 sq M.predicted among non-blacks MDRD (S/P/Bld) [Vol rate/Area] 18 mL/min/{1.73_m2} Low >60 [facility] Comment on above: Result Comment: These results are not intended [...] following therapy that affects renal tubular secretion. Performed By: #### B JAVIER, CBC #### [address] [place], [place] [phone] Blanching Machine Operator: Dimas Chandler MD #### LIPR #### [address] [phone] Blanching Machine Operator: David Tate MD Glucose [Mass/Vol] 141 mg/dL High 74-99 [facility] Comment on above: Performed By: #### B JAVIER, CBC #### [address] [place], [place] 5615983 Blanching Machine Operator: Dimas Chandler MD #### LIPR #### [address] [address] Blanching Machine Operator: David Tate MD Potassium [Moles/Vol] 4.1 mmol/L Normal 3.7-5.3 [facility] Comment on above: Performed By: #### B JAVIER, CBC #### [address] [place], [place] [phone] Blanching Machine Operator: Dimas Chandler MD #### LIPR #### [address] [address] Blanching Machine Operator: David Tate MD Sodium [Moles/Vol] 140 mmol/L Normal 136-145 [facility] Comment on above: Performed By: #### B JAVIER, CBC #### [address] [place] [address] Blanching Machine Operator: Dimas Chandler MD #### LIPR #### [facility] [address] [place], [place] [phone] Blanching Machine Operator: David Tate MD Urea nitrogen [Mass/Vol] 39 mg/dL High 8-23 [facility] Comment on above: Performed By: #### B MP, CBC #### [facility] [address] [place] [address] Blanching Machine Operator: Dimas Chandler MD #### LIPR #### [facility] [address] [place], [place] 1578308 Blanching Machine Operator: David Tate MD CBCon 01-21-2025 Erythrocyte distribution width (RBC) [Ratio] 15.3 % High 11.8 - 14.4 % [facility] Hematocrit (Bld) [Volume fraction] 29.2 % Low 40.7 - 50.3 % [facility] Hemoglobin (Bld) [Mass/Vol] 9.5 g/dL Low 13.0 - 17.0 g/dL [facility] Interpretation and review of laboratory results Abnormal [facility] MCH (RBC) [Entitic mass] 27.5 pg 25.2 - 33.5 pg [facility] MCHC (RBC) [Mass/Vol] 32.5 g/dL 28.4 - 34.8 g/dL [facility] MCV (RBC) [Entitic vol] 84.4 fL 82.6 - 102.9 fL [facility] Nucleated RBC/100 WBC (Bld) [Ratio] 0 % 0.0 per 100 WBC [facility] Platelet mean volume (Bld) [Entitic vol] 10.5 fL 8.1 - 13.5 fL [facility] Platelets (Bld) [#/Vol] 494 10*3/uL High [facility] RBC (Bld) [#/Vol] 3.46 10*6/uL Low 4.21 - 5.7 7 m/uL [facility] WBC other (Bld) [#/Vol] 30.1 High [facility] Erythrocyte distribution width (RBC) [Ratio] 15.3 % High 11.8-14.4 [facility] Comment on above: Performed By: #### B MP, CBC #### [facility] [address] [place], [place] [phone] Blanching Machine Operator: Dimas Chandler MD #### LIPR #### [address] [phone] Blanching Machine Operator: David Tate MD Hematocrit (Bld) [Volume fraction] 29.2 % Low 40.7-50.3 [facility] Comment on above: Performed By: #### B JAVIER, CBC #### [facility] [address] [place] [address] Dr[place] [phone] Blanching Machine Operator: Dimas Chandler MD #### LIPR #### [address] [address] Blanching Machine Operator: David Tate MD Hemoglobin (Bld) [Mass/Vol] 9.5 g/dL Low 13.0-17.0 [facility] Comment on above: Performed By: #### B MP, CBC #### [facility] [address] [place] [address] Dr[place], [place] 1522483 Blanching Machine Operator: Dimas Chandler MD #### LIPR #### [address] [address] Blanching Machine Operator: David Tate MD MCH (RBC) [Entitic mass] 27.5 pg Normal 25.2-33.5 [facility] Comment on above: Performed By: #### B MP, CBC #### [facility] [address] [place] [address] Dr[place], [place] [phone] Blanching Machine Operator: Dimas Chandler MD #### LIPR #### [address] [phone] Blanching Machine Operator: David Tate MD MCHC (RBC) [Mass/Vol] 32.5 g/dL Normal 28.4-34.8 [facility] Comment on above: Performed By: #### B MP, CBC #### [address] [place], [place] [phone] Blanching Machine Operator: Dimas Chandler MD #### LIPR #### [address] [phone] Blanching Machine Operator: David Tate MD MCV (RBC) [Entitic vol] 84.4 fL Normal 82.6-102.9 [facility] Comment on above: Performed By: #### B JAVIER, CBC #### [address] [place] [phone] Blanching Machine Operator: Dimas Chandler MD #### LIPR #### [address] [phone] Blanching Machine Operator: David Tate MD NRBC Automated 0.0 per 100 WBC Normal 0.0 [facility] Comment on above: Performed By: #### B MP, CBC #### [address] [place] [phone] Blanching Machine Operator: Dimas Chandler MD #### LIPR #### [address] [address] Blanching Machine Operator: David Tate MD Platelet mean volume (Bld) [Entitic vol] 10.5 fL Normal 8.1-13.5 [facility] Comment on above: Performed By: #### B MP, CBC #### [address] [place], [place] 8721183 Blanching Machine Operator: Dimas Chandler MD #### LIPR #### [address] [phone] Blanching Machine Operator: David Tate MD Platelets (Bld) [#/Vol] 494 10*3/uL High 138-453 [facility] Comment on above: Performed By: #### B MP, CBC #### [facility] [address] [place], [place] 0256383 Blanching Machine Operator: Dimas Chandler MD #### LIPR #### [address] [phone] Blanching Machine Operator: David Tate MD RBC (Bld) [#/Vol] 3.46 10*6/uL Low 4.21-5.77 [facility] Comment on above: Performed By: #### B MP, CBC #### [facility] [address] [place] [phone] Blanching Machine Operator: Dimas Chandler MD #### LIPR #### [place] [address] Blanching Machine Operator: David Tate MD WBC (Bld) [#/Vol] 30.1 10*3/uL High 3.5-11.3 [facility] Comment on above: Performed By: #### B MP, CBC #### [facility] [address] [place] [address] [place] [phone] Blanching Machine Operator: Dimas Chandler MD #### LIPR #### [place] [address] Blanching Machine Operator: David Tate MD Lipid Panelon 01-21-2025 Cholesterol [Mass/Vol] 183 mg/dL 0 - 1 99 mg/dL [facility] Comment on above: Cholesterol Guidelines: <200 Desirable 200-240 Borderline >240 Undesirable Cholesterol in HDL [Mass/Vol] 43 mg/dL 40 - PINF mg/dL [facility] [employer] Comment on above: HDL Guidelines: <40 Undesirable 40-59 Borderline >59 Desirable Cholesterol in LDL [Mass/Vol] 118 mg/dL High 0 - 100 mg/dL [facility] Comment on above: LDL Guidelines: <100 Desirable 100-129 Near to/above Desirable 130-159 Borderline >159 Undesirable Direct (measured) LDL and calculated LDL are not interchangeable tests. Cholesterol in VLDL [Mass/Vol] 22 mg/dL 1 - 30 mg/dL [facility] Cholesterol.total/Chol esterol in HDL [Mass ratio] 4.3 {ratio} [facility] Interpretation and review of laboratory results Abnormal [facility] Triglyceride [Mass/Vol] 109 mg/dL NINF - 150 mg/dL [facility] Comment on above: Triglyceride Guidelines: <150 Desirable 150-199 Borderline 200-499 High >499 Very high Based on AHA Guidelines for fasting triglyceride, August 2012. [facility] Lipid Profileon 01-21-2025 Cholesterol [Mass/Vol] 183 mg/dL Normal 0-199 [facility] Comment on above: Result Comment: Cholesterol Guidelines: <200 Desirable 200-240 Borderline >240 Undesirable Performed By: #### B MP, CBC #### [facility] [address] [place] [address] [place] [phone] Blanching Machine Operator: Dimas Chandler MD #### LIPR #### [address] [address] Blanching Machine Operator: David Tate MD Cholesterol in HDL [Mass/Vol] 43 mg/dL Normal >40 [facility] Comment on above: Result Comment: HDL Guidelines: <40 Undesirable 40-59 Borderline >59 Desirable Performed By: #### B JAVIER, CBC #### [facility] [address] [place] [address] [place] [phone] Blanching Machine Operator: Dimas Chandler MD #### LIPR #### [address] [phone] Blanching Machine Operator: David Tate MD Cholesterol in LDL [Mass/Vol] 118 mg/dL High 0-100 [facility] Comment on above: Result Comment: LDL Guidelines: <100 Desirable 100-129 Near to/above Desirable 130-159 Borderline >159 Undesirable Direct (measured) LDL and calculated LDL are not interchangeable tests. Performed By: #### B MP, CBC #### [facility] [address] [place], [place] 3013183 Blanching Machine Operator: Dimas Chandler MD #### LIPR #### [address] [place], [place] 0705308 Blanching Machine Operator: David Tate MD Cholesterol in VLDL [Mass/Vol] 22 mg/dL Normal 1-30 [facility] Comment on above: Performed By: #### B MP, CBC #### [facility] [address] [place] [address] [place], [place] [phone] Blanching Machine Operator: Dimas Chandler MD #### LIPR #### [address] [phone] Blanching Machine Operator: David Tate MD Cholesterol.total/Chol esterol in HDL [Mass ratio] 4.3 {ratio} Normal [facility] Comment on above: Performed By: #### B JAVIER, CBC #### [facility] [address] [place] [address] Dr. [place], [place] [phone] Blanching Machine Operator: Dimas Chandler MD #### LIPR #### [address] [address] Blanching Machine Operator: David Tate MD Triglyceride [Mass/Vol] 109 mg/dL Normal <150 [facility] Comment on above: Result Comment: Triglyceride Guidelines: <150 Desirable 150-199 Borderline 200-499 High >499 Very high Based on AHA Guidelines for fasting triglyceride, August 2012. Performed By: #### B MP, CBC #### [facility] [address] [place] [address] [place], [place] 6408883 Blanching Machine Operator: Dimas Chandler MD #### LIPR #### [address] [place], [place] 7020208 Blanching Machine Operator: David Tate MD Estimated glomerular filtrat ion rate (GFR) non- Americanon 12-28-2024 GFR/1.73 sq M.predicted among non-blacks MDRD (S/P/Bld) [Vol rate/Area] Estimated glomerular filtration rate (GFR) non- Low >=60 mL/min/1.73 m 2 [facility] Globulin Calc (S) [Mass/Vol] on 12-28-2024 Globulin (S) [Mass/Vol] Serum globulin measurement by calculation (mass/volume) [facility] Laboratory - Chemistry and C hemistry - challengeon 12-28-2024 Albumin [Mass/Vol] 2.5 g/dL Low 3.4-5.0 [facility] ALP [Catalytic activity/Vol] 57 U/L 46-116 [facility] ALT [Catalytic activity/Vol] 25 U/L 16-63 [facility] AST [Catalytic activity/Vol] 18 U/L 15-37 [facility] Bilirubin [Mass/Vol] 0.2 mg/dL 0.2-1.[address] [facility] Calcium [Mass/Vol] 8.6 mg/dL 8.5-10.1 [facility] Chloride [Moles/Vol] 108 mmol/L High 98-[address] [facility] CO2 [Moles/Vol] 27.1 mmol/L 21.0-32.0 [facility] Creatinine [Mass/Vol] 2.77 mg/dL High 0.70-1.30 [facility] GFR/1.73 sq M.predicted MDRD (S/P/Bld) [Vol rate/Area] 27 mL/min/{1.73_m2} Low >=60 mL/min/1.73 m 2 [facility] Glucose [Mass/Vol] 99 mg/dL 74-106 [facility] Magnesium [Mass/Vol] 2.4 mg/dL 1.8-2.[address] [facility] Potassium [Moles/Vol] 3.5 mmol/L 3.5-5.1 [facility] Protein [Mass/Vol] 6.8 g/dL 6.4-8.2 [facility] Sodium [Moles/Vol] 143 mmol/L 136-145 [facility] Urea nitrogen [Mass/Vol] 34.0 mg/dL High 7.0-18.0 [facility] Urea nitrogen/Creatinine [Mass ratio] 12.3 mg/mg [facility] Serum or plasma albumin/glob ulin mass ratioon 12-28-2024 Albumin/Globulin [Mass ratio] Serum or plasma albumin/globulin mass ratio [facility] Serum or plasma anion gap de terminationon 12-28-2024 Anion gap [Moles/Vol] Serum or plasma an ion gap determination [facility] Basophils Auto (Bld) [#/Vol] on 12-27-2024 Basophils (Bld) [#/Vol] Automated basophil count 0.0-0.1 [facility] Basophils/100 WBC Auto (Bld) on 12-27-2024 Basophils/100 WBC (Bld) Automated basophil % 0.2-2.0 [facility] Eosinophils/100 WBC Auto (Bl d)on 12-27-2024 Eosinophils/100 WBC (Bld) Automated eosinophil % 0.9-7.0 [facility] Erythrocyte distribution wid th Auto (RBC) [Ratio]on 12-27-2024 Erythrocyte distribution width (RBC) [Ratio] Erythrocyte distribution width [Ratio] by Automated count High 11.0-15.0 [facility] Estimated glomerular filtrat ion rate (GFR) non- Americanon 12-27-2024 GFR/1.73 sq M.predicted among non-blacks MDRD (S/P/Bld) [Vol rate/Area] Estimated glomerular filtration rate (GFR) non- Low >=60 mL/min/1.73 m 2 [facility] Globulin Calc (S) [Mass/Vol] on 12-27-2024 Globulin (S) [Mass/Vol] Serum globulin measurement by calculation (mass/volume) [facility] Hematocrit Auto (Bld) [Volum e fraction]on 12-27-2024 Hematocrit (Bld) [Volume fraction] Hematocrit [Volume Fraction] of Blood by Automated count Low 42.0-54.0 [facility] Hemoglobin [Mass/volume] in Bloodon 12-27-2024 Hemoglobin (Bld) [Mass/Vol] Hemoglobin [Mass/volume] in Blood Low 14.0-18.0 [facility] INR in Platelet poor plasma by Coagulation assayon 12-27-2024 INR Coag (PPP) [Relative time] INR in Platelet poor plasma by Coagulation assay [facility] Comment on above: DESIRED INR:2.0-3.0 CONDITIONS NOT LISTED BELOW2.5-3.5 FOR PROSTHETIC HEART VALVE REPLACEMENT2.5-3.5 [facility] Laboratory - Chemistry and C hemistry - challengeon 12-27-2024 Albumin [Mass/Vol] 2.8 g/dL Low 3.4-5.0 [facility] ALP [Catalytic activity/Vol] 63 U/L 46-116 [facility] ALT [Catalytic activity/Vol] 29 U/L 16-63 [facility] AST [Catalytic activity/Vol] 22 U/L 15-37 [facility] Bilirubin [Mass/Vol] 0.3 mg/dL 0.2-1.[address] [facility] Calcium [Mass/Vol] 8.8 mg/dL 8.5-10.1 [facility] Chloride [Moles/Vol] 105 mmol/L 98-[address] [facility] CO2 [Moles/Vol] 26.8 mmol/L 21.0-32.0 [facility] Creatinine [Mass/Vol] 2.96 mg/dL High 0.70-1.30 [facility] GFR/1.73 sq M.predicted MDRD (S/P/Bld) [Vol rate/Area] 25 mL/min/{1.73_m2} Low >=60 mL/min/1.73 m 2 [facility] Glucose [Mass/Vol] 121 mg/dL High 74-106 [facility] Lactate [Moles/Vol] 1.4 mmol/L 0.4-2.0 [facility] Magnesium [Mass/Vol] 2.4 mg/dL 1.8-2.[address] [facility] Potassium [Moles/Vol] 3.4 mmol/L Low 3.5-5.1 [facility] Protein [Mass/Vol] 7.6 g/dL 6.4-8.2 [facility] Sodium [Moles/Vol] 142 mmol/L 136-145 [facility] TSH Qn 2.103 m[IU]/L 0.358-3.740 [facility] Urea nitrogen [Mass/Vol] 39.0 mg/dL High 7.0-18.0 [facility] Urea nitrogen/Creatinine [Mass ratio] 13.2 mg/mg [facility] Laboratory - Hematology and Cell countson 12-27-2024 Immature granulocytes/100 WBC (Bld) 0.5 % 0.0-0.5 [facility] Leukocytes [#/volume] correc roxanne for nucleated erythrocytes in Blood by Automated counon 12-27-2024 WBC corrected for nucl RBC Auto (Bld) [#/Vol] Leukocytes [#/volume] corrected for nucleated erythrocytes in Blood by Automated coun 4.0-11.0 [facility] Lymphocytes Auto (Bld) [#/Vo l]on 12-27-2024 Lymphocytes (Bld) [#/Vol] Lymphocytes [#/volume] in Blood by Automated count 1.2-3.8 [facility] Lymphocytes/100 WBC Auto (Bl d)on 12-27-2024 Lymphocytes/100 WBC (Bld) Lymphocytes/100 leukocytes in Blood by Automated count Low 20.5-60.0 [facility] MCH Auto (RBC) [Entitic mass ]on 12-27-2024 MCH (RBC) [Entitic mass] MCH [Entitic mass] by Automated count 25.9-34.0 [facility] MCHC Auto (RBC) [Mass/Vol]on 12-27-2024 MCHC (RBC) [Mass/Vol] MCHC [Mass/volume] by Automated count 29.9-35.2 [facility] MCV Auto (RBC) [Entitic vol] on 12-27-2024 MCV (RBC) [Entitic vol] MCV [Entitic volume] by Automated count 80.0-94.0 [facility] Monocytes Auto (Bld) [#/Vol] on 12-27-2024 Monocytes (Bld) [#/Vol] Automated blood monocyte count 0.3-0.8 [facility] Monocytes/100 WBC Auto (Bld) on 12-27-2024 Monocytes/100 WBC (Bld) Automated monocyte % 1.7-12.0 [facility] Neutrophils Auto (Bld) [#/Vo l]on 12-27-2024 Neutrophils (Bld) [#/Vol] Neutrophils [#/volume] in Blood by Automated count 1.4-6.5 [facility] Neutrophils/100 WBC Auto (Bl d)on 12-27-2024 Neutrophils/100 WBC (Bld) Automated neutrophil % 43.0-75.0 [facility] No Panel Informationon 12-27 Eosinophils # (Auto) 0.1 10 3/uL 0.0-0.7 [facility] Immature Granulocyte # (Auto) 0.04 10 3/uL High 0.00-0.03 [facility] Troponin I High Sensitivity 8.7 pg/mL 4.0-76.1 [facility] Comment on above: CUT-OFF POINTS HAVE BEEN ESTABLISHED BASED ON THE FOURTHIVERSAL DEFINITION OF MYOCARDIAL INFARCTION. THE UPPERREFERENCE LIMIT (URL) OF TROPONIN, DEFINED THE 99THPERCENTILE OF cTnI DISTRIBUTION IN A REFERENCE POPULATION,HAS BEEN CONFIRMED THE DECISION THRESHOLD FOR MIDIAGNOSIS.99TH PERCENTILE = 76.2 PG/MLNOTE: HIGH-SENSITIVITY TROPONIN ASSAY IS NOT INTENDED TO BEUSED IN ISOLATION BUT SHOULD BE INTERPRETED IN CONJUNCTIONWITH OTHER DIAGNOSTIC AND CLINICAL INFORMATION. Platelet mean volume Auto (B ld) [Entitic vol]on 12-27-2024 Platelet mean volume (Bld) [Entitic vol] Platelet mean volume [Entitic volume] in Blood by Automated count 9.5-13.5 [facility] Platelets Auto (Bld) [#/Vol] on 12-27-2024 Platelets (Bld) [#/Vol] Platelets [#/volume] in Blood by Automated count 150-450 [facility] Prothrombin time (PT)on 12-05 PT Coag (PPP) [Time] Prothrombin time (PT) 9.0- 11.6 [facility] RBC Auto (Bld) [#/Vol]on RBC (Bld) [#/Vol] Erythrocytes [#/volu me] in Blood by Automated count Low 4.70-6.10 [facility] Serum or plasma albumin/glob ulin mass ratioon 12-27-2024 Albumin/Globulin [Mass ratio] Serum or plasma albumin/globulin mass ratio [facility] Serum or plasma anion gap de terminationon 12-27-2024 Anion gap [Moles/Vol] Serum or plasma an ion gap determination [facility] Urine Cultureon 12-27-2024 Bacteria identified Cx Nom (U) ORGANISM: Morganella morganii (O:MORMOR) [place] Count >100,000 ORGANISM: Corynebacterium species (O:CORSPE) [place] Count 75,000 Organism Comments Organism not Routinely Tested for Susceptibilities Organism #2 identified as Corynebacterium elizabethi. Aerobic YECENIA Charge (NMIC56) -- SUSCEPTIBILITY - ORGANISM: O:MORMOR ANTIBIOTIC INTERPRETATION YECENIA Amikacin S <16 Ampicillin/Sulbactam I 1616/8 Aztreonam IB <4 Cefepime S <2 Ceftazidime IB <1 Ceftazidime/Avibactam S <4 Ceftolozane/Tazobactam S <2 Ceftriaxone IB <1 Ciprofloxacin S <0.25 Ertapenem S <0.5 Gentamicin S <2 Levofloxacin S <0.5 Meropenem S <1 Meropenem/Vaborbactam S <2 Piperacillin/Tazobactam IB <8 Tetracycline R >8 Tobramycin S <2 Trimethoprim/Sulfametho xazole S <0.5 S = SUSCEPTIBLE I = [...] RESISTANT TO ALL B-LACTAM DRUGS. PERFORMED BY: [facility] [address] [place] [address] PATHOLOGIST [employer] ATTENDANT RISSA CARVALHO M.D. Normal [facility] Comment on above: Performed By: #### C UU #### [facility] [address] [place] [address] [place] Basophils Auto (Bld) [#/Vol] on 11-20-2024 Basophils (Bld) [#/Vol] Automated basophil count 0.0-0.1 [facility] Basophils/100 WBC Auto (Bld) on 11-20-2024 Basophils/100 WBC (Bld) Automated basophil % 0.2-2.0 [facility] Eosinophils/100 WBC Auto (Bl d)on 11-20-2024 Eosinophils/100 WBC (Bld) Automated eosinophil % Low 0.9-7.0 [facility] Erythrocyte distribution wid th Auto (RBC) [Ratio]on 11-20-2024 Erythrocyte distribution width (RBC) [Ratio] Erythrocyte distribution width [Ratio] by Automated count High 11.0-15.0 [facility] Estimated glomerular filtrat ion rate (GFR) non- Americanon 11-20-2024 GFR/1.73 sq M.predicted among non-blacks MDRD (S/P/Bld) [Vol rate/Area] Estimated glomerular filtration rate (GFR) non- Low >=60 mL/min/1.73 m 2 [facility] Globulin Calc (S) [Mass/Vol] on 11-20-2024 Globulin (S) [Mass/Vol] Serum globulin measurement by calculation (mass/volume) [facility] Hematocrit Auto (Bld) [Volum e fraction]on 11-20-2024 Hematocrit (Bld) [Volume fraction] Hematocrit [Volume Fraction] of Blood by Automated count Low 42.0-54.0 [facility] Hemoglobin [Mass/volume] in Bloodon 11-20-2024 Hemoglobin (Bld) [Mass/Vol] Hemoglobin [Mass/volume] in Blood Low 14.0-18.0 [facility] Laboratory - Chemistry and C hemistry - challengeon 11-20-2024 Albumin [Mass/Vol] 2.7 g/dL Low 3.4-5.0 [facility] ALP [Catalytic activity/Vol] 48 U/L 46-116 [facility] ALT [Catalytic activity/Vol] 18 U/L 16-63 [facility] AST [Catalytic activity/Vol] 18 U/L 15-37 [facility] Bilirubin [Mass/Vol] 0.5 mg/dL 0.2-1.[address] [facility] Calcium [Mass/Vol] 8.5 mg/dL 8.5-10.1 [facility] Chloride [Moles/Vol] 103 mmol/L 98-[address] [facility] CK [Catalytic activity/Vol] 77 U/L 39-308 [facility] CO2 [Moles/Vol] 25.6 mmol/L 21.0-32.0 [facility] Creatinine [Mass/Vol] 2.60 mg/dL High 0.70-1.30 [facility] GFR/1.73 sq M.predicted MDRD (S/P/Bld) [Vol rate/Area] 29 mL/min/{1.73_m2} Low >=60 mL/min/1.73 m 2 [facility] Glucose [Mass/Vol] 120 mg/dL High 74-106 [facility] Potassium [Moles/Vol] 3.0 mmol/L Low 3.5-5.1 [facility] Protein [Mass/Vol] 6.7 g/dL 6.4-8.2 [facility] Sodium [Moles/Vol] 140 mmol/L 136-145 [facility] Urea nitrogen [Mass/Vol] 40.0 mg/dL High 7.0-18.0 [facility] Urea nitrogen/Creatinine [Mass ratio] 15.4 mg/mg [facility] Laboratory - Hematology and Cell countson 11-20-2024 Immature granulocytes/100 WBC (Bld) 0.4 % 0.0-0.5 [facility] Leukocytes [#/volume] correc roxanne for nucleated erythrocytes in Blood by Automated counon 11-20-2024 WBC corrected for nucl RBC Auto (Bld) [#/Vol] Leukocytes [#/volume] corrected for nucleated erythrocytes in Blood by Automated coun 4.0-11.0 [facility] Lymphocytes Auto (Bld) [#/Vo l]on 11-20-2024 Lymphocytes (Bld) [#/Vol] Lymphocytes [#/volume] in Blood by Automated count 1.2-3.8 [facility] Lymphocytes/100 WBC Auto (Bl d)on 11-20-2024 Lymphocytes/100 WBC (Bld) Lymphocytes/100 leukocytes in Blood by Automated count Low 20.5-60.0 [facility] MCH Auto (RBC) [Entitic mass ]on 11-20-2024 MCH (RBC) [Entitic mass] MCH [Entitic mass] by Automated count 25.9-34.0 [facility] MCHC Auto (RBC) [Mass/Vol]on 11-20-2024 MCHC (RBC) [Mass/Vol] MCHC [Mass/volume] by Automated count 29.9-35.2 [facility] MCV Auto (RBC) [Entitic vol] on 11-20-2024 MCV (RBC) [Entitic vol] MCV [Entitic volume] by Automated count 80.0-94.0 [facility] Monocytes Auto (Bld) [#/Vol] on 11-20-2024 Monocytes (Bld) [#/Vol] Automated blood monocyte count 0.3-0.8 [facility] Monocytes/100 WBC Auto (Bld) on 11-20-2024 Monocytes/100 WBC (Bld) Automated monocyte % 1.7-12.0 [facility] Neutrophils Auto (Bld) [#/Vo l]on 11-20-2024 Neutrophils (Bld) [#/Vol] Neutrophils [#/volume] in Blood by Automated count 1.4-6.5 [facility] Neutrophils/100 WBC Auto (Bl d)on 11-20-2024 Neutrophils/100 WBC (Bld) Automated neutrophil % 43.0-75.0 [facility] No Panel Informationon 11-20 Eosinophils # (Auto) 0.1 10 3/uL 0.0-0.7 [facility] Immature Granulocyte # (Auto) 0.03 10 3/uL 0.00-0.03 [facility] Platelet mean volume Auto (B ld) [Entitic vol]on 11-20-2024 Platelet mean volume (Bld) [Entitic vol] Platelet mean volume [Entitic volume] in Blood by Automated count 9.5-13.5 [facility] Platelets Auto (Bld) [#/Vol] on 11-20-2024 Platelets (Bld) [#/Vol] Platelets [#/volume] in Blood by Automated count 150-450 [facility] RBC Auto (Bld) [#/Vol]on RBC (Bld) [#/Vol] Erythrocytes [#/volu me] in Blood by Automated count Low 4.70-6.10 [facility] Serum or plasma albumin/glob ulin mass ratioon 11-20-2024 Albumin/Globulin [Mass ratio] Serum or plasma albumin/globulin mass ratio [facility] Serum or plasma anion gap de terminationon 11-20-2024 Anion gap [Moles/Vol] Serum or plasma an ion gap determination [facility] Basophils Auto (Bld) [#/Vol] on 11-19-2024 Basophils (Bld) [#/Vol] Automated basophil count 0.0-0.1 [facility] Basophils/100 WBC Auto (Bld) on 11-19-2024 Basophils/100 WBC (Bld) Automated basophil % 0.2-2.0 [facility] Eosinophils/100 WBC Auto (Bl d)on 11-19-2024 Eosinophils/100 WBC (Bld) Automated eosinophil % Low 0.9-7.0 [facility] Erythrocyte distribution wid th Auto (RBC) [Ratio]on 11-19-2024 Erythrocyte distribution width (RBC) [Ratio] Erythrocyte distribution width [Ratio] by Automated count High 11.0-15.0 [facility] Estimated glomerular filtrat ion rate (GFR) non- Americanon 11-19-2024 GFR/1.73 sq M.predicted among non-blacks MDRD (S/P/Bld) [Vol rate/Area] Estimated glomerular filtration rate (GFR) non- Low >=60 mL/min/1.73 m 2 [facility] Globulin Calc (S) [Mass/Vol] on 11-19-2024 Globulin (S) [Mass/Vol] Serum globulin measurement by calculation (mass/volume) [facility] Hematocrit Auto (Bld) [Volum e fraction]on 11-19-2024 Hematocrit (Bld) [Volume fraction] Hematocrit [Volume Fraction] of Blood by Automated count Low 42.0-54.0 [facility] Hemoglobin [Mass/volume] in Bloodon 11-19-2024 Hemoglobin (Bld) [Mass/Vol] Hemoglobin [Mass/volume] in Blood Low 14.0-18.0 [facility] Laboratory - Chemistry and C hemistry - challengeon 11-19-2024 Albumin [Mass/Vol] 2.6 g/dL Low 3.4-5.0 [facility] ALP [Catalytic activity/Vol] 50 U/L 46-116 [facility] ALT [Catalytic activity/Vol] 23 U/L 16-63 [facility] AST [Catalytic activity/Vol] 21 U/L 15-37 [facility] Bilirubin [Mass/Vol] 0.3 mg/dL 0.2-1.[address] [facility] Calcium [Mass/Vol] 8.6 mg/dL 8.5-10.1 [facility] Chloride [Moles/Vol] 104 mmol/L 98-[address] [facility] CK [Catalytic activity/Vol] 159 U/L 39-308 [facility] CO2 [Moles/Vol] 25.0 mmol/L 21.0-32.0 [facility] Creatinine [Mass/Vol] 2.91 mg/dL High 0.70-1.30 [facility] GFR/1.73 sq M.predicted MDRD (S/P/Bld) [Vol rate/Area] 26 mL/min/{1.73_m2} Low >=60 mL/min/1.73 m 2 [facility] Glucose [Mass/Vol] 125 mg/dL High 74-106 [facility] Potassium [Moles/Vol] 3.3 mmol/L Low 3.5-5.1 [facility] Protein [Mass/Vol] 6.6 g/dL 6.4-8.2 [facility] Sodium [Moles/Vol] 137 mmol/L 136-145 [facility] Urea nitrogen [Mass/Vol] 54.0 mg/dL High 7.0-18.0 [facility] Urea nitrogen/Creatinine [Mass ratio] 18.6 mg/mg [facility] Laboratory - Hematology and Cell countson 11-19-2024 Immature granulocytes/100 WBC (Bld) 0.3 % 0.0-0.5 [facility] Leukocytes [#/volume] correc roxanne for nucleated erythrocytes in Blood by Automated counon 11-19-2024 WBC corrected for nucl RBC Auto (Bld) [#/Vol] Leukocytes [#/volume] corrected for nucleated erythrocytes in Blood by Automated coun 4.0-11.0 [facility] Lymphocytes Auto (Bld) [#/Vo l]on 11-19-2024 Lymphocytes (Bld) [#/Vol] Lymphocytes [#/volume] in Blood by Automated count 1.2-3.8 [facility] Lymphocytes/100 WBC Auto (Bl d)on 11-19-2024 Lymphocytes/100 WBC (Bld) Lymphocytes/100 leukocytes in Blood by Automated count Low 20.5-60.0 [facility] MCH Auto (RBC) [Entitic mass ]on 11-19-2024 MCH (RBC) [Entitic mass] MCH [Entitic mass] by Automated count 25.9-34.0 [facility] MCHC Auto (RBC) [Mass/Vol]on 11-19-2024 MCHC (RBC) [Mass/Vol] MCHC [Mass/volume] by Automated count 29.9-35.2 [facility] MCV Auto (RBC) [Entitic vol] on 11-19-2024 MCV (RBC) [Entitic vol] MCV [Entitic volume] by Automated count 80.0-94.0 [facility] Monocytes Auto (Bld) [#/Vol] on 11-19-2024 Monocytes (Bld) [#/Vol] Automated blood monocyte count 0.3-0.8 [facility] Monocytes/100 WBC Auto (Bld) on 11-19-2024 Monocytes/100 WBC (Bld) Automated monocyte % 1.7-12.0 [facility] Neutrophils Auto (Bld) [#/Vo l]on 11-19-2024 Neutrophils (Bld) [#/Vol] Neutrophils [#/volume] in Blood by Automated count 1.4-6.5 [facility] Neutrophils/100 WBC Auto (Bl d)on 11-19-2024 Neutrophils/100 WBC (Bld) Automated neutrophil % 43.0-75.0 [facility] No Panel Informationon 11-19 Eosinophils # (Auto) 0.1 10 3/uL 0.0-0.7 [facility] Immature Granulocyte # (Auto) 0.03 10 3/uL 0.00-0.03 [facility] Platelet mean volume Auto (B ld) [Entitic vol]on 11-19-2024 Platelet mean volume (Bld) [Entitic vol] Platelet mean volume [Entitic volume] in Blood by Automated count 9.5-13.5 [facility] Platelets Auto (Bld) [#/Vol] on 11-19-2024 Platelets (Bld) [#/Vol] Platelets [#/volume] in Blood by Automated count 150-450 [facility] RBC Auto (Bld) [#/Vol]on RBC (Bld) [#/Vol] Erythrocytes [#/volu me] in Blood by Automated count Low 4.70-6.10 [facility] Serum or plasma albumin/glob ulin mass ratioon 11-19-2024 Albumin/Globulin [Mass ratio] Serum or plasma albumin/globulin mass ratio [facility] Serum or plasma anion gap de terminationon 11-19-2024 Anion gap [Moles/Vol] Serum or plasma an ion gap determination [facility] Basophils Auto (Bld) [#/Vol] on 11-18-2024 Basophils (Bld) [#/Vol] Automated basophil count 0.0-0.1 [facility] Basophils/100 WBC Auto (Bld) on 11-18-2024 Basophils/100 WBC (Bld) Automated basophil % Low 0.2-2.0 [facility] Cholesterol in LDL Calc [Mas s/Vol]on 11-18-2024 Cholesterol in LDL [Mass/Vol] Cholesterol in LDL [Mass/volume] in Serum or Plasma by calculation [facility] Comment on above: <100 mg/dl [id number] 0-129 mg/dl NEAR OR ABOVE [id number] mg/dl BORDERLINE [id number] mg/dl HIGH>190 mg/dl VERY HIGH Cholesterol in VLDL Calc [Ma ss/Vol]on 11-18-2024 Cholesterol in VLDL [Mass/Vol] Cholesterol in VLDL [Mass/volume] in Serum or Plasma by calculation [facility] Eosinophils/100 WBC Auto (Bl d)on 11-18-2024 Eosinophils/100 WBC (Bld) Automated eosinophil % Low 0.9-7.0 [facility] Erythrocyte distribution wid th Auto (RBC) [Ratio]on 11-18-2024 Erythrocyte distribution width (RBC) [Ratio] Erythrocyte distribution width [Ratio] by Automated count High 11.0-15.0 [facility] Estimated glomerular filtrat ion rate (GFR) non- Americanon 11-18-2024 GFR/1.73 sq M.predicted among non-blacks MDRD (S/P/Bld) [Vol rate/Area] Estimated glomerular filtration rate (GFR) non- Low >=60 mL/min/1.73 m 2 [facility] Globulin Calc (S) [Mass/Vol] on 11-18-2024 Globulin (S) [Mass/Vol] Serum globulin measurement by calculation (mass/volume) [facility] Hematocrit Auto (Bld) [Volum e fraction]on 11-18-2024 Hematocrit (Bld) [Volume fraction] Hematocrit [Volume Fraction] of Blood by Automated count Low 42.0-54.0 [facility] Hemoglobin [Mass/volume] in Bloodon 11-18-2024 Hemoglobin (Bld) [Mass/Vol] Hemoglobin [Mass/volume] in Blood Low 14.0-18.0 [facility] Laboratory - Chemistry and C hemistry - challengeon 11-18-2024 CK [Catalytic activity/Vol] 346 U/L Critically high 39-308 [facility] Comment on above: RESULTS CALLED TO DO NELY DAVIS RN ON [facility] BY Sonja Britt at 0908 Albumin [Mass/Vol] 2.6 g/dL Low 3.4-5.0 [facility] ALP [Catalytic activity/Vol] 46 U/L 46-116 [facility] ALT [Catalytic activity/Vol] 18 U/L 16-63 [facility] AST [Catalytic activity/Vol] 25 U/L 15-37 [facility] Bilirubin [Mass/Vol] 0.5 mg/dL 0.2-1.[address] [facility] Calcium [Mass/Vol] 8.6 mg/dL 8.5-10.1 [facility] Chloride [Moles/Vol] 104 mmol/L 98-[address] [facility] Cholesterol [Mass/Vol] 226 mg/dL High <=200 [facility] Cholesterol in HDL [Mass/Vol] 83 mg/dL High 40-60 [facility] Comment on above: > or =60 mg/dl - LOW CARDIOVASCULAR RISK<40 mg/dl - HIGH CARDIOVASCULAR RISK CO2 [Moles/Vol] 29.3 mmol/L 21.0-32.0 [facility] Creatinine [Mass/Vol] 3.06 mg/dL High 0.70-1.30 [facility] GFR/1.73 sq M.predicted MDRD (S/P/Bld) [Vol rate/Area] 24 mL/min/{1.73_m2} Low >=60 mL/min/1.73 m 2 [facility] Glucose [Mass/Vol] 103 mg/dL 74-106 [facility] Potassium [Moles/Vol] 3.3 mmol/L Low 3.5-5.1 [facility] Protein [Mass/Vol] 6.2 g/dL Low 6.4-8.2 [facility] Sodium [Moles/Vol] 138 mmol/L 136-145 [facility] Triglyceride [Mass/Vol] 61 mg/dL <=150 [facility] Urea nitrogen [Mass/Vol] 46.0 mg/dL High 7.0-18.0 [facility] Urea nitrogen/Creatinine [Mass ratio] 15.0 mg/mg [facility] Laboratory - Hematology and Cell countson 11-18-2024 Immature granulocytes/100 WBC (Bld) 0.3 % 0.0-0.5 [facility] Leukocytes [#/volume] correc roxanne for nucleated erythrocytes in Blood by Automated counon 11-18-2024 WBC corrected for nucl RBC Auto (Bld) [#/Vol] Leukocytes [#/volume] corrected for nucleated erythrocytes in Blood by Automated coun 4.0-11.0 [facility] Lymphocytes Auto (Bld) [#/Vo l]on 11-18-2024 Lymphocytes (Bld) [#/Vol] Lymphocytes [#/volume] in Blood by Automated count 1.2-3.8 [facility] Lymphocytes/100 WBC Auto (Bl d)on 11-18-2024 Lymphocytes/100 WBC (Bld) Lymphocytes/100 leukocytes in Blood by Automated count Low 20.5-60.0 [facility] MCH Auto (RBC) [Entitic mass ]on 11-18-2024 MCH (RBC) [Entitic mass] MCH [Entitic mass] by Automated count 25.9-34.0 [facility] MCHC Auto (RBC) [Mass/Vol]on 11-18-2024 MCHC (RBC) [Mass/Vol] MCHC [Mass/volume] by Automated count 29.9-35.2 [facility] MCV Auto (RBC) [Entitic vol] on 11-18-2024 MCV (RBC) [Entitic vol] MCV [Entitic volume] by Automated count 80.0-94.0 [facility] Monocytes Auto (Bld) [#/Vol] on 11-18-2024 Monocytes (Bld) [#/Vol] Automated blood monocyte count 0.3-0.8 [facility] Monocytes/100 WBC Auto (Bld) on 11-18-2024 Monocytes/100 WBC (Bld) Automated monocyte % 1.7-12.0 [facility] Neutrophils Auto (Bld) [#/Vo l]on 11-18-2024 Neutrophils (Bld) [#/Vol] Neutrophils [#/volume] in Blood by Automated count 1.4-6.5 [facility] Neutrophils/100 WBC Auto (Bl d)on 11-18-2024 Neutrophils/100 WBC (Bld) Automated neutrophil % 43.0-75.0 [facility] No Panel Informationon 11-18 Eosinophils # (Auto) 0.0 10 3/uL 0.0-0.7 [facility] Immature Granulocyte # (Auto) 0.02 10 3/uL 0.00-0.03 [facility] Platelet mean volume Auto (B ld) [Entitic vol]on 11-18-2024 Platelet mean volume (Bld) [Entitic vol] Platelet mean volume [Entitic volume] in Blood by Automated count 9.5-13.5 [facility] Platelets Auto (Bld) [#/Vol] on 11-18-2024 Platelets (Bld) [#/Vol] Platelets [#/volume] in Blood by Automated count 150-450 [facility] RBC Auto (Bld) [#/Vol]on RBC (Bld) [#/Vol] Erythrocytes [#/volu me] in Blood by Automated count Low 4.70-6.10 [facility] Serum or plasma albumin/glob ulin mass ratioon 11-18-2024 Albumin/Globulin [Mass ratio] Serum or plasma albumin/globulin mass ratio [facility] Serum or plasma anion gap de terminationon 11-18-2024 Anion gap [Moles/Vol] Serum or plasma an ion gap determination [facility] Serum or plasma total choles terol/high density lipoprotein (HDL) cholesterol mass edwar 11-18-2024 Cholesterol.total/Chol esterol in HDL [Mass ratio] Serum or plasma total cholesterol/high density lipoprotein (HDL) cholesterol mass rat [facility] Comment on above: 3.3 - 4.4 LOW RISK4. 4 - 7.1 AVERAGE RISK7.1 - 11.0 MODERATE RISK>11.0 HIGH RISK Basophils Auto (Bld) [#/Vol] on 11-17-2024 Basophils (Bld) [#/Vol] Automated basophil count 0.0-0.1 [facility] Basophils/100 WBC Auto (Bld) on 11-17-2024 Basophils/100 WBC (Bld) Automated basophil % Low 0.2-2.0 [facility] Eosinophils/100 WBC Auto (Bl d)on 11-17-2024 Eosinophils/100 WBC (Bld) Automated eosinophil % Low 0.9-7.0 [facility] Erythrocyte distribution wid th Auto (RBC) [Ratio]on 11-17-2024 Erythrocyte distribution width (RBC) [Ratio] Erythrocyte distribution width [Ratio] by Automated count High 11.0-15.0 [facility] Estimated glomerular filtrat ion rate (GFR) non- Americanon 11-17-2024 GFR/1.73 sq M.predicted among non-blacks MDRD (S/P/Bld) [Vol rate/Area] Estimated glomerular filtration rate (GFR) non- Low >=60 mL/min/1.73 m 2 [facility] Globulin Calc (S) [Mass/Vol] on 11-17-2024 Globulin (S) [Mass/Vol] Serum globulin measurement by calculation (mass/volume) [facility] Hematocrit Auto (Bld) [Volum e fraction]on 11-17-2024 Hematocrit (Bld) [Volume fraction] Hematocrit [Volume Fraction] of Blood by Automated count Low 42.0-54.0 [facility] Hemoglobin [Mass/volume] in Bloodon 11-17-2024 Hemoglobin (Bld) [Mass/Vol] Hemoglobin [Mass/volume] in Blood Low 14.0-18.0 [facility] INR in Platelet poor plasma by Coagulation assayon 11-17-2024 INR Coag (PPP) [Relative time] INR in Platelet poor plasma by Coagulation assay [facility] Comment on above: DESIRED INR:2.0-3.0 CONDITIONS NOT LISTED BELOW2.5-3.5 FOR PROSTHETIC HEART VALVE REPLACEMENT2.5-3.5 RECURRENT THROMBOSIS Laboratory - Chemistry and C hemistry - challengeon 11-17-2024 Bilirubin Ql (U) Negative NEGATIVE [facility] Glucose (U) [Mass/Vol] Negative NEGATIVE [facility] Ketones Ql (U) Negative NEGATIVE [facility] pH (U) 6.0 [pH] 5.0-9.0 [facility] Specific gravity (U) [Rel density] 1.020 1.005-1.025 [facility] Urobilinogen Qn (U) 0.2 {Olinda'U}/dL 0.2-1.0 [facility] Albumin [Mass/Vol] 3.7 g/dL 3.4-5.0 [facility] ALP [Catalytic activity/Vol] 66 U/L 46-116 [facility] ALT [Catalytic activity/Vol] 22 U/L 16-63 [facility] AST [Catalytic activity/Vol] 30 U/L 15-37 [facility] Bilirubin [Mass/Vol] 0.6 mg/dL 0.2-1.[address] [facility] Calcium [Mass/Vol] 10.0 mg/dL 8.5-10.1 [facility] Chloride [Moles/Vol] 98 mmol/L 98-[address] [facility] CK [Catalytic activity/Vol] 425 U/L Critically high 39-308 [facility] Comment on above: RESULTS CALLED TO ANTONIO CLARK RN CO2 [Moles/Vol] 27.9 mmol/L 21.0-32.0 [facility] Creatinine [Mass/Vol] 3.03 mg/dL High 0.70-1.30 [facility] GFR/1.73 sq M.predicted MDRD (S/P/Bld) [Vol rate/Area] 24 mL/min/{1.73_m2} Low >=60 mL/min/1.73 m 2 [facility] Glucose [Mass/Vol] 156 mg/dL High 74-106 [facility] Lactate [Moles/Vol] 1.8 mmol/L 0.4-2.0 [facility] Natriuretic peptide B (Bld) [Mass/Vol] 2335.0 pg/mL Critically high <=1800.0 [facility] Comment on above: RESULTS CALLED TO ARETHA Butler Potassium [Moles/Vol] 2.8 mmol/L Critically low 3.5-5.1 [facility] Comment on above: RESULTS CALLED TO ARETHA Butler Protein [Mass/Vol] 8.4 g/dL High 6.4-8.2 [facility] Sodium [Moles/Vol] 136 mmol/L 136-145 [facility] TSH Qn 1.486 m[IU]/L 0.358-3.740 [facility] Urea nitrogen [Mass/Vol] 50.0 mg/dL High 7.0-18.0 [facility] Urea nitrogen/Creatinine [Mass ratio] 16.5 mg/mg [facility] Laboratory - Hematology and Cell countson 11-17-2024 Immature granulocytes/100 WBC (Bld) 0.3 % 0.0-0.5 [facility] Laboratory - Microbiology an d Antimicrobial susceptibilityon 11-17-2024 SARS-CoV-2 (COVID-19) RNA KURTIS+probe Ql (Unsp spec) Negative NEGATIVE [facility] Comment on above: This test has not be en FDA cleared or approved, but has beenauthorized by the FDA under an Emergency Use Authorization(EUA) for use by authorized laboratories [facility] that meet the requirements to perform moderate or highcomplexity testing. This test has been authorized only forthe detection of proteins from SARS-CoV-2, not for any otherviruses or pathogens. The emergency use of this test isauthorized for the duration of the declaration thatcircumstances exist justifying the authorization ofemergency use of in vitro diagnostic tests for detectionand/or diagnosis of Covid-19 under section 564(b)(1) of theAct, 21 U.S.C. 360bbb-3(b)(1), unless the declaration isterminated or authorization is revoked sooner. Laboratory - Specimen inform ationon 11-17-2024 Appearance (U) CLEAR CLEAR [facility] Color (U) LT. YELLOW YELLOW [facility] Laboratory - Urinalysison Leukocyte esterase Test strip Ql (U) TRACE Abnormal NEGATIVE [facility] Mucus Ql (Urine sed) NONE SEEN NONE SEEN [facility] Nitrite Ql (U) Negative NEGATIVE [facility] Protein Ql (U) >=300 mg/dL Abnormal NEG/TRACE [facility] Leukocytes [#/volume] correc roxanne for nucleated erythrocytes in Blood by Automated counon 11-17-2024 WBC corrected for nucl RBC Auto (Bld) [#/Vol] Leukocytes [#/volume] corrected for nucleated erythrocytes in Blood by Automated coun High 4.0-11.0 [facility] Lymphocytes Auto (Bld) [#/Vo l]on 11-17-2024 Lymphocytes (Bld) [#/Vol] Lymphocytes [#/volume] in Blood by Automated count Low 1.2-3.8 [facility] Lymphocytes/100 WBC Auto (Bl d)on 11-17-2024 Lymphocytes/100 WBC (Bld) Lymphocytes/100 leukocytes in Blood by Automated count Low 20.5-60.0 [facility] MCH Auto (RBC) [Entitic mass ]on 11-17-2024 MCH (RBC) [Entitic mass] [facility] [Entitic mass] by Automated count 25.9-34.0 [facility] MCHC Auto (RBC) [Mass/Vol]on 11-17-2024 MCHC (RBC) [Mass/Vol] MCHC [Mass/volume] by Automated count 29.9-35.2 [facility] MCV Auto (RBC) [Entitic vol] on 11-17-2024 MCV (RBC) [Entitic vol] MCV [Entitic volume] by Automated count 80.0-94.0 [facility] Monocytes Auto (Bld) [#/Vol] on 11-17-2024 Monocytes (Bld) [#/Vol] Automated blood monocyte count 0.3-0.8 [facility] Monocytes/100 WBC Auto (Bld) on 11-17-2024 Monocytes/100 WBC (Bld) Automated monocyte % 1.7-12.0 [facility] Neutrophils Auto (Bld) [#/Vo l]on 11-17-2024 Neutrophils (Bld) [#/Vol] Neutrophils [#/volume] in Blood by Automated count High 1.4-6.5 [facility] Neutrophils/100 WBC Auto (Bl d)on 11-17-2024 Neutrophils/100 WBC (Bld) Automated neutrophil % High 43.0-75.0 [facility] No Panel Informationon 11-17 Urine Bacteria TRACE #/HPF Abnormal NONE SEEN [facility] Urine Culture Reflexed NO [facility] Urine Microscopic Review YES [facility] Urine Occult Blood MODERATE Abnormal NEGATIVE [facility] Urine Other Casts NONE SEEN #/LPF NONE SEEN [facility] Urine Other Crystals None Seen #/HPF None Seen [facility] Urine RBC 2-5 #/HPF Abnormal 0-2 [facility] Urine Squamous Epithelial Cells NONE SEEN #/LPF NONE/RARE [facility] Urine WBC 2-5 #/HPF Abnormal NONE SEEN [facility] Eosinophils # (Auto) 0.0 10 3/uL 0.0-0.7 [facility] Immature Granulocyte # (Auto) 0.04 10 3/uL High 0.00-0.03 [facility] Troponin I High Sensitivity 37.5 pg/mL 4.0-76.1 [facility] Comment on above: CUT-OFF POINTS HAVE BEEN ESTABLISHED BASED ON THE FOURTHUNIVERSAL DEFINITION OF MYOCARDIAL INFARCTION. THE UPPERREFERENCE LIMIT (URL) OF TROPONIN, DEFINED THE 99THPERCENTILE OF cTnI DISTRIBUTION IN A REFERENCE POPULATION,HAS BEEN CONFIRMED THE DECISION THRESHOLD FOR MIDIAGNOSIS.99TH PERCENTILE = 76.2 PG/MLNOTE: HIGH-SENSITIVITY TROPONIN ASSAY IS NOT INTENDED TO BEUSED IN ISOLATION BUT SHOULD BE INTERPRETED IN CONJUNCTIONWITH OTHER DIAGNOSTIC AND CLINICAL INFORMATION. Venous Blood Partial Pressure CO2 42.0 mm[Hg] 40.0-52.0 [facility] Venous Blood pH 7.404 7.330-7.430 [facility] Bedside Influenza Type A Antigen Negative [facility] Comment on above: Negative for Flu A p rotein antigen. Infection due to Flu Acannot be ruled out. Flu A antigen in the sample may bebelow the detection limit of the test. Bedside Influenza Type B Antigen Negative [facility] Comment on above: Negative for Flu B p rotein antigen. Infection due to Flu Bcannot be ruled out. Flu B antigen in the sample may bebelow the detection limit of the test. RSV RNA Qual (PCR)([facility]) Not detected NOT DETECTE [facility] Platelet mean volume Auto (B ld) [Entitic vol]on 11-17-2024 Platelet mean volume (Bld) [Entitic vol] Platelet mean volume [Entitic volume] in Blood by Automated count 9.5-13.5 [facility] Platelets Auto (Bld) [#/Vol] on 11-17-2024 Platelets (Bld) [#/Vol] Platelets [#/volume] in Blood by Automated count 150-450 [facility] Prothrombin time (PT)on 11-03 PT Coag (PPP) [Time] Prothrombin time (PT) 9.0- 11.6 [facility] RBC Auto (Bld) [#/Vol]on RBC (Bld) [#/Vol] Erythrocytes [#/volu me] in Blood by Automated count Low 4.70-6.10 [facility] Serum or plasma albumin/glob ulin mass ratioon 11-17-2024 Albumin/Globulin [Mass ratio] Serum or plasma albumin/globulin mass ratio [facility] Serum or plasma anion gap de terminationon 11-17-2024 Anion gap [Moles/Vol] Serum or plasma an ion gap determination [facility] Urology Office/Clinic Noteon 12-05-2023 Urology Office/Clinic Note Chief Complaint urinary retention, feeling of incomplete bladder emptying, BPH with LUTS HPI Staff Deniz is a 78 y.o. male here for urinary retention. Previous Dx: acute renal failure, acute urinary retention, bilateral hydronephrosis, BPH w/ elevated PSA, enlarged prostate, urinary retention. No urological procedures. Referred by Soham Wilson. BUN 33.0 & CRE 2.28 done on 07/04/23. Current PSA 3.74 done on 07/04/23. UA done on 07/04/23 was negative. Renal bladder US done on 10/16/23. Pt states he does not know why he is here today and does not remember Dr. Wilson telling him that he needed to be [...] a 78 yo male re-referred by Dr. Wilson for BPH and urinary retention. Last saw Dr. Levy 04/17/21. Pt here with friend today - takes care of pt's appts/transportation but has IBS and states she may have to cancel if experiencing bothersome sxs. 1. Feeling of incomplete bladder emptying (R39.14: Feeling of incomplete bladder emptying) Hx of urinary retention requiring Diaz placement in the remote past. PVR (cc): [...] is done. Discussed options such as chronic diaz catheter placement vs CIC. Also discussed cystoscopy [...] Dr. Levy. IPSS 1, QoL 0. Dr. Wilson started pt on Tamsulosin 0.4mg qd in [...] Contact Information DARREL MENDEZ, AGNES [place], URL [address] [place] [address] [phone] Additional Instructions: sched cysto/uros Patient Education Urodynamic Testing Cystoscopy Acute Urinary Retention, Male Documentation recorded by the scribclifford Nash accurately reflects the services(s) I performed and decisions made by me. Authenticated by Agnes Cruz PA-C on 12/05/2023 09:19:14. I, Brianne Nash, personally scribed for Agnes Cruz PA-C on 12/03/2023 15:49:13. . 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 Normal [facility] Comment on above: Result Comment: Elec tronically Signed By: AGNES CRUZ PA-C\.br\Date and Time Signed: 12/05/23 09:19 EST\.br\Electronically Co-Signed By: Brianne Nash\.br\Date and Time Co-Signed: 12/03/23 15:50 EST Physician Referralon 024 Physician Referral [id number] TIFF [facility] Screenson 12-04-2023 Screens [id number] IFF [facility] Ambulatory Visit Summaryon 0 12-03-2023 Ambulatory Visit Summary DENIZ GÓMEZ :1945 Visit Date:12/03/2023 Ambulatory Visit Instructions Your Diagnosis Feeling of incomplete bladder emptying BPH with urinary obstruction Renal cyst Your Care Team Attending Physician - AGNES CRUZ PA-C Primary Care Physician - NONE, XXXX [...] Schedule the Following Appointments Follow Up with DARREL MENDEZ, DAMI WILDE When: Comments: sched cysto/uros Where: [address] [place] [address] [phone] Medications What How Much When Instructions Changed tamsulosin (tamsulosin 0.4 mg Cap) 2 Capsules By Mouth Every day Duration: 90 Days Pickup at [facility]/pharmacy #[id number] Unchanged amlodipine (amLODIPine 5 mg Tab) [...] physician if questions or concerns Pharmacy Information [facility]/pharmacy #[id number]: [address] [place], [place] [id number] [phone] Allergies No Known Medication Allergies Problems Ongoing [...] including vitamins, herbs, eye drops, creams, and nrhy-gip-gvoxjig medicines. ? Whether you are or may [...] that create (more content not included)... Normal [facility] Patient Educationon 12-03-19 Patient Education Urology Urodynamic [...] including vitamins, herbs, eye drops, creams, and fhdq-ymg-rlxxtvx medicines. ? Whether you are or may [...] results be (more content not included)... Normal [facility] Comprehensive Metabolic Pane angeline 07-04-2023 Albumin [Mass/Vol] 3.465254 g/dL Normal 3.4-5.0 g/dL [employer] [employer] Other ALP [Catalytic activity/Vol] 59 U/L Normal 46-116 U/L [employer] [facility] Other ALT [Catalytic activity/Vol] 23 U/L Normal 16-63 U/L [employer] [facility] Other Anion gap [Moles/Vol] 11.3 mmol/L No rt [employer] Other AST [Catalytic activity/Vol] 20 U/L Normal 15-37 U/L [employer] Other Bilirubin [Mass/Vol] 0.7366479 mg/dL Normal 0.2- 1.0 mg/dL [employer] Other Calcium [Mass/Vol] 9.7852665 mg/dL Normal 8.5-10 .1 mg/dL [employer] Other Chloride [Moles/Vol] 101 mmol/L Normal 98-107 mmol/L [employer] [facility] Other CO2 [Moles/Vol] 31.84949901 mmol/L Normal 21.0-3 2.0 mmol/L [employer] Other Creatinine [Mass/Vol] 2.38591700 mg/dL High 0. 70-1.30 mg/dL [employer] Other Glucose [Mass/Vol] 148 mg/dL High 74-106 mg/dL [employer] [facility] Other Potassium [Moles/Vol] 3.47592698 mmol/L Low 3 .5-5.1 mmol/L [employer] [facility] Other Protein [Mass/Vol] 8.582097 g/dL Normal 6.4-8.2 g/dL [employer] [facility] Other Sodium [Moles/Vol] 140 mmol/L Normal 136-145 mmol/L [employer] [facility] Other Urea nitrogen [Mass/Vol] 33.2305250 mg/dL High 7.0-18.0 mg/dL [employer] Other Urea nitrogen/Creatinine [Mass ratio] 14.5 mg/mg [employer] [facility] Other Comprehensive Metabolic Panel 4.5 g/dL [employer] [facility] Other Comprehensive Metabolic Panel 0.8 [employer] [facility] Other Comprehensive Metabolic Panel see note [employer] Other Comprehensive Metabolic Panel 28 Low >=60 [employer] [facility] Other Comprehensive Metabolic Panel 34 Low >=60 [employer] Other PSA SCREENINGon 07-04-2023 PSA SCREENING 3.74 ng/mL <=4.00 ng/mL [employer] [facility] Other UA RANDOM W/MICROSCOPICon Clarity (U) CLEAR CLEAR [employer] Other Color (U) LT. YELLOW YELLOW [employer] Other Ketones Ql (U) Negative NEGATIVE mg/dL [employer] [facility] Other Leukocyte esterase Test strip Ql (U) Negative NEGATIVE [employer] Other pH (U) 6.5 [pH] 5.0-9.0 [employer] Other UA RANDOM W/MICROSCOPIC 0-2 #/HPF Abnormal NONE SEEN #/HPF [employer] [facility] Other UA RANDOM W/MICROSCOPIC NONE SEEN #/HPF None Seen #/HPF [facility] Other UA RANDOM W/MICROSCOPIC 1.015 1.005-1.025 [employer] Other UA RANDOM W/MICROSCOPIC 30 mg/dL Abnormal NEG/TRACE mg/dL [employer] [facility] Other UA RANDOM W/MICROSCOPIC Negative NEGATIVE [employer] [facility] Other UA RANDOM W/MICROSCOPIC 0.2 EU/dL 0.2-1.0 EU/dL [facility] Other UA RANDOM W/MICROSCOPIC NONE SEEN NONE SEEN [facility] Other UA RANDOM W/MICROSCOPIC NONE SEEN #/LPF NONE SEEN #/LPF [employer] [facility] Other XR WRIST RT MIN 3 Von 2021 [...] JANICE WOODS Date: 2022-10-06 22:[address] [facility] CBC AUTO DIFFon 10-06-2022 BASO # 0.0 103/ul Normal 0.0-0.1 [facility] Comment on above: Performed By: #### C BC #### [facility] [address] [place] [address] Dr. Goran Cortes Basophils/100 WBC (Bld) 0.2 % Normal 0.2-2.0 [facility] Comment on above: Performed By: #### C BC #### [facility] [address] [place] [address] Dr. Goran Cortes EO # 0.0 103/ul Normal 0.0-0.7 [facility] Comment on above: Performed By: #### C BC #### [facility] [address] [place] [address] Dr. Goran Cortes Eosinophils/100 WBC (Bld) 0.1 % Critically low 0.9-7.0 [facility] Comment on above: Performed By: #### C BC #### [facility] [address] [place] [address] Dr. Goran Cortes Erythrocyte distribution width (RBC) [Ratio] 13.8 % Normal 11.0-15.0 [facility] Comment on above: Performed By: #### C BC #### [facility] [address] [place] [address] Dr. Goran Cortes Hematocrit (Bld) [Volume fraction] 38.4 % Critically low 42.0-54.0 [facility] Comment on above: Performed By: #### C BC #### [facility] [address] [place] [address] Dr. Goran Cortes Hemoglobin (Bld) [Mass/Vol] 12.8 g/dL Critically low 14.0-18.0 [facility] Comment on above: Performed By: #### C BC #### [facility] [address] [place] [address] Dr. Goran Cortes IG # 0.06 10e3/ul Critically high 0.00-0.03 [facility] Comment on above: Performed By: #### C BC #### [facility] [address] [place] [address] Dr. Goran Cortes IG % 0.4 % Normal 0.0-0.5 [facility] Comment on above: Performed By: #### C BC #### [facility] [address] [place] [address] Dr. Goran Cortes LYMPH # 1.7 103/ul Normal 1.2-3.8 [facility] Comment on above: Performed By: #### C BC #### [facility] [address] [place] [address] Dr. Goran Cortes Lymphocytes/100 WBC (Bld) 11.6 % Critically low 20.5-60.0 [facility] Comment on above: Performed By: #### C BC #### [facility] [address] [place] [address] Dr. Goran Cortes MANUAL DIFF REQ NO Normal [facility] Comment on above: Performed By: #### C BC #### [facility] [address] [place] [address] Dr. Goran Cortes MCH (RBC) [Entitic mass] 31.2 pg Normal 25.9-34.0 [facility] Comment on above: Performed By: #### C BC #### [facility] [address] [place] [address] Dr. Goran Cortes MCHC (RBC) [Mass/Vol] 33.3 g/dL Normal 29.9-35.2 [facility] Comment on above: Performed By: #### C BC #### [facility] [address] [address] [address] Goran Cortes MCV (RBC) [Entitic vol] 93.7 fL Normal 80.0-94.0 [facility] Comment on above: Performed By: #### C BC #### [facility] [address] [address] [address] Goran Cortes MONO # 0.9 103/ul Critically high 0.3-0.[address] [facility] Comment on above: Performed By: #### C BC #### [facility] [address] [place] [address] Dr. Goran Cortes Monocytes/100 WBC (Bld) 6.2 % Normal 1.7-12.0 [facility] Comment on above: Performed By: #### C BC #### [facility] [address] [address] [address] Goran Cortes NEUT # 11.9 103/ul Critically high 1.4-6.5 [facility] Comment on above: Performed By: #### C BC #### [facility] [address] [place] [address] Dr. Goran Cortes Neutrophils/100 WBC (Bld) 81.5 % Critically high 43.0-75.0 [facility] Comment on above: Performed By: #### C BC #### [facility] [address] [address] [address] Goran Cortes Platelet mean volume (Bld) [Entitic vol] 11.2 fL Normal 9.5-13.[address] [facility] Comment on above: Performed By: #### C BC #### [facility] [address] [place] [address] Dr. Goran Cortes PLT 212 103/ul Normal 150-[address] [facility] Comment on above: Performed By: #### C BC #### [facility] [address] [place] [address] Dr. Goran Cortes RBC 4.10 106/ul Critically low 4.70-6.10 [facility] Comment on above: Performed By: #### C BC #### [facility] [address] [place], [place] [address] Dr. Goran Cortes WBC 14.6 103/ul Critically high 4.0-11.0 [facility] Comment on above: Performed By: #### C BC #### [facility] [address] [place], [place] [address] CSPINE WO CONon [...] DIOR GANT Date: 2022-10-06 21:[address] [facility] CT FACIAL BONES WO CONon CT [...] DIOR GANT Date: 2022-10-06 21:[address] [facility] CT HEAD WO CONon 10-06-2022 CT [...] Earlene GARCÍA Date: 2022-10-06 21:[address] [facility] PROF CHEM 8 (BAS METB)on Anion gap [Moles/Vol] 15.7 mmol/L Normal [facility] Comment on above: Performed By: #### B MP #### [facility] [address] [place] [address] Dr. Goran Cortes Calcium [Mass/Vol] 9.5 mg/dL Normal 8.5-10.1 [facility] Comment on above: Performed By: #### B MP #### [facility] [address] [address] [address] Goran Cortes Chloride [Moles/Vol] 101 mmol/L Normal 98-107 [facility] Comment on above: Performed By: #### B MP #### [facility] [address] [address] [address] Goran Cortes CO2 [Moles/Vol] 25.6 mmol/L Normal 21.0-32.0 [facility] Comment on above: Performed By: #### B MP #### [facility] [address] [address] [address] Goran Cortes Creatinine [Mass/Vol] 2.64 mg/dL Critically high 0.70-1.30 [facility] Comment on above: Performed By: #### B MP #### [facility] [address] [address] [address] Goran Cortes EGFR-AF FRENCH 29 mL/min/1.73m2 Critically low >=60 [facility] Comment on above: Performed By: #### B MP #### [facility] [address] [address] [address] Goran Cortes EGFR-NON AF FRENCH 24 mL/min/1.73m2 Critically low >=60 [facility] Comment on above: Performed By: #### B MP #### [facility] [address] [address] [address] Goran Cortes Glucose [Mass/Vol] 177 mg/dL Critically high 74-106 [facility] Comment on above: Performed By: #### B MP #### [facility] [address] [address] [address] Goran Cortes Potassium [Moles/Vol] 3.3 mmol/L Critically low 3.5-5.1 [facility] Comment on above: Performed By: #### B MP #### [facility] [address] [address] [address] Goran Cortes Sodium [Moles/Vol] 139 mmol/L Normal 136-145 [facility] Comment on above: Performed By: #### B MP #### [facility] [address] [address] [address] Goran Cortes Urea nitrogen [Mass/Vol] 34.0 mg/dL Critically high 7.0-18.0 [facility] Comment on above: Performed By: #### B MP #### [facility] [address] [address] [address] Goran Cortes Urea nitrogen/Creatinine [Mass ratio] 12.9 mg/mg Normal [facility] Comment on above: Performed By: #### B MP #### [facility] [address] [address] [address] Goran Cortes Hemoglobin and Hematocrit, B [facility] 10-19-2020 Hematocrit (Bld) [Volume fraction] 23.9 % Low 40.7 - 50.3 % [place] Hemoglobin (Bld) [Mass/Vol] 7.5 g/dL Low 13 - 17 g/dL [place] Interpretation and review of laboratory results Abnormal [place] Hgb/Hct[place] 10-19-2020 Hematocrit (Bld) [Volume fraction] 23.9 % Low 40.7-50.3 [facility] Comment on above: Performed By: #### H H #### [facility] [place] [address] [employer] Machine Operator: David Tate MD Hemoglobin (Bld) [Mass/Vol] 7.5 g/dL Low 13.0-17.0 [facility] Comment on above: Performed By: #### H H #### [facility] Outline App [address] [place] [address] [employer] Operator: David Tate MD Hemoglobin and Hematocrit, B [facility] 10-16-2020 Hematocrit (Bld) [Volume fraction] 24.6 % Low 40.7 - 50.3 % [place] Hemoglobin (Bld) [Mass/Vol] 7.6 g/dL Low 13 - 17 g/dL [place] Interpretation and review of laboratory results Abnormal [place] Hgb/Hcton 10-16-2020 Hematocrit (Bld) [Volume fraction] 24.6 % Low 40.7-50.3 [facility] Comment on above: Performed By: #### H H #### [facility] [address] [place], [place] [id number] [employer] Machine Operator: David Tate MD Hemoglobin (Bld) [Mass/Vol] 7.6 g/dL Low 13.0-17.0 [facility] Comment on above: Performed By: #### H H #### [address] [place] [address] [employer] Operator: David Tate MD Hemoglobin and Hematocrit, B [facility] 10-13-2020 Hematocrit (Bld) [Volume fraction] 25.5 % Low 40.7 - 50.3 % [place] Hemoglobin (Bld) [Mass/Vol] 8.0 g/dL Low 13 - 17 g/dL [place] Interpretation and review of laboratory results Abnormal [place] Hgb/Hcton 10-13-2020 Hematocrit (Bld) [Volume fraction] 25.5 % Low 40.7-50.3 [facility] Comment on above: Performed By: #### H H #### [facility] [address] [place], [place] [id number] [employer] Operator: Harinder Rosales MD Hemoglobin (Bld) [Mass/Vol] 8.0 g/dL Low 13.0-17.0 [facility] Comment on above: Performed By: #### H H #### [facility] [address] [place], [place] [phone] [employer] Operator: Harinder Rosales MD Hemoglobin and Hematocrit, B [place] 10-12-2020 Hematocrit (Bld) [Volume fraction] 24.3 % Low 40.7 - 50.3 % [place] Hemoglobin (Bld) [Mass/Vol] 7.5 g/dL Low 13 - 17 g/dL [place] Interpretation and review of laboratory results Abnormal [place] Hgb/Hcton 10-12-2020 Hematocrit (Bld) [Volume fraction] 24.3 % Low 40.7-50.3 [facility] Comment on above: Performed By: #### H H #### [facility] [address] [place] [address] [employer] Operator: David Tate MD Hemoglobin (Bld) [Mass/Vol] 7.5 g/dL Low 13.0-17.0 [facility] Comment on above: Performed By: #### H H #### [facility] Outline [facility] [address] [place] [address] [phone] [employer] Operator: David Tate MD Hemoglobin and Hematocrit, B [place] 10-11-2020 Hematocrit (Bld) [Volume fraction] 24.2 % Low 40.7 - 50.3 % [place] Hemoglobin (Bld) [Mass/Vol] 7.6 g/dL Low 13 - 17 g/dL [place] Interpretation and review of laboratory results Abnormal [place] Hgb/Hcton 10-11-2020 Hematocrit (Bld) [Volume fraction] 24.2 % Low 40.7-50.3 [facility] Comment on above: Performed By: #### H H #### [facility] [address] [place] [address] [employer] Operator: David Tate MD Hemoglobin (Bld) [Mass/Vol] 7.6 g/dL Low 13.0-17.0 [facility] Comment on above: Performed By: #### H H #### [facility] Outline App [address] [place] [address] [phone] [employer] Operator: David Tate MD Hemoglobin and Hematocrit, B [place] 10-10-2020 Hematocrit (Bld) [Volume fraction] 24.0 % Low 40.7 - 50.3 % [place] Hemoglobin (Bld) [Mass/Vol] 7.4 g/dL Low 13 - 17 g/dL [place] Interpretation and review of laboratory results Abnormal [place] Hgb/Hcton 10-10-2020 Hematocrit (Bld) [Volume fraction] 24.0 % Low 40.7-50.3 [facility] Comment on above: Performed By: #### H H #### [facility] Outline App [address] [place], [place] [phone] [employer] Operator: David Tate MD Hemoglobin (Bld) [Mass/Vol] 7.4 g/dL Low 13.0-17.0 [facility] Comment on above: Performed By: #### H H #### [facility] Outline App [address] [place], [place] [phone] [employer] Operator: David Tate MD Basic Metabolic Panelon Anion gap [Moles/Vol] 10 mmol/L 9 - 17 mmol/L [place] Bun/Cre Ratio NOT REPORTED [place] Calcium [Mass/Vol] 7.9 mg/dL Low 8.6 - 10. 4 mg/dL [place] Chloride [Moles/Vol] 104 mmol/L 98 - 10 7 mmol/L [place] CO2 [Moles/Vol] 20 mmol/L 20 - 31 mmol/L [place] Creatinine [Mass/Vol] 2.83 mg/dL High 0.7 - 1.2 mg/dL [place] GFR 27 mL/min Low >60 [place] GFR Non- 22 mL/min Low >60 [place] GFR/1.73 sq M predicted among non-blacks MDRD (S/P/Bld) [Vol rate/Area] NOT REPORTED [place] GFR/1.73 sq M predicted among non-blacks MDRD (S/P/Bld) [Vol rate/Area] [place] Comment on above: Average GFR for 70 o r more years old: 75 mL/min/1.73sq m Chronic Kidney Disease: <60 mL/min/1.73sq m Kidney failure: <15 mL/min/1.73sq m eGFR calculated using average adult body mass. Additional eGFR calculator available at: http://www.[employer]/multiple_crcl_2012.htm Glucose [Mass/Vol] 90 mg/dL 70 - 99 mg/dL [place] Interpretation and review of laboratory results Abnormal [place] Potassium [Moles/Vol] 4.1 mmol/L 3.7 - 5.3 mmol/L [place] Sodium [Moles/Vol] 134 mmol/L Low 135 - 144 mmol/L [place] Urea nitrogen [Mass/Vol] 36 mg/dL High 8 - 23 mg/dL [place] Basic Metabolic Profon 10-09 (cont.) Normal [facility] Comment on above: Result Comment: Aver age GFR for 70 or more years old: 75 mL/min/1.73sq m Chronic Kidney Disease: <60 mL/min/1.73sq m Kidney failure: <15 mL/min/1.73sq m eGFR calculated using average adult body mass. Additional eGFR calculator available at: http://www.[employer]/multiple_crcl_2012.htm Performed By: #### C CHER, BMP #### [facility] [address] [place] [address] [phone] Blanching Machine Operator: David Tate MD Anion gap [Moles/Vol] 10 mmol/L Normal 9-17 [facility] Comment on above: Performed By: #### C CHER, BMP #### [facility] [address] [place], [place] [phone] Blanching Machine Operator: David Tate MD Calcium [Mass/Vol] 7.9 mg/dL Low 8.6-10.4 [facility] Comment on above: Performed By: #### C CHER, BMP #### [facility] [address] [place] [address] [phone] Blanching Machine Operator: David Tate MD Chloride [Moles/Vol] 104 mmol/L Normal 98-107 [facility] Comment on above: Performed By: #### C BC, BMP #### [facility] [address] [place] [phone] Blanching Machine Operator: David Tate MD CO2 [Moles/Vol] 20 mmol/L Normal 20-31 [facility] Comment on above: Performed By: #### C BC, BMP #### [facility] [address] [place] [address] [phone] Blanching Machine Operator: David Tate MD Creatinine [Mass/Vol] 2.83 mg/dL High 0.70-1.20 [facility] Comment on above: Performed By: #### C BC, BMP #### [facility] [address] [place] [address] [phone] Blanching Machine Operator: David Tate MD GFR, Amer 27 mL/min Low >60 [facility] Comment on above: Performed By: #### C BC, BMP #### [facility] [address] [place] [address] [phone] Blanching Machine Operator: David Tate MD GFR,non Amer 22 mL/min Low >60 [facility] Comment on above: Performed By: #### C BC, BMP #### [facility] [address] [place] [address] [phone] Blanching Machine Operator: David Tate MD Glucose [Mass/Vol] 90 mg/dL Normal 70-99 [facility] Comment on above: Performed By: #### C BC, BMP #### [facility] [address] [place] [address] [phone] Blanching Machine Operator: David Tate MD Potassium [Moles/Vol] 4.1 mmol/L Normal 3.7-5.3 [facility] Comment on above: Performed By: #### C BC, BMP #### [facility] [address] [place] [address] [phone] Blanching Machine Operator: David Tate MD Sodium [Moles/Vol] 134 mmol/L Low 135-144 [facility] Comment on above: Performed By: #### C BC, BMP #### [facility] [address] [place] [address] [phone] Blanching Machine Operator: David Tate MD Urea nitrogen [Mass/Vol] 36 mg/dL High 8-23 [facility] Comment on above: Performed By: #### C BC, BMP #### [facility] [address] [place] [address] [phone] Blanching Machine Operator: David Tate MD BUN/CRE Ratio NOT REPORTED Normal 9-20 [facility] Comment on above: Performed By: #### C BC, BMP #### [facility] [address] [place] [address] [phone] Blanching Machine Operator: David Tate MD Staging: NOT REPORTED Normal [facility] Comment on above: Performed By: #### C BC, BMP #### [facility] [address] [place] [address] [phone] Blanching Machine Operator: David Tate MD CBCon 10-09-2020 Erythrocyte distribution width (RBC) [Ratio] 14.6 % High 11.8-14.4 [facility] Comment on above: Performed By: #### C BC, BMP #### [facility] [address] [place] [address] [phone] Blanching Machine Operator: David Tate MD Hematocrit (Bld) [Volume fraction] 24.8 % Low 40.7-50.3 [facility] Comment on above: Performed By: #### C BC, BMP #### [facility] [address] [place] [address] [phone] Blanching Machine Operator: David Tate MD Hemoglobin (Bld) [Mass/Vol] 7.8 g/dL Low 13.0-17.0 [facility] Comment on above: Performed By: #### C BC, BMP #### [facility] [address] [place] [address] Blanching Machine Operator: Daivd Tate MD MCH (RBC) [Entitic mass] 30.5 pg Normal 25.2-33.5 [facility] Comment on above: Performed By: #### C BC, BMP #### [address] [phone] Blanching Machine Operator: David Tate MD MCHC (RBC) [Mass/Vol] 31.5 g/dL Normal 28.4-34.8 [facility] Comment on above: Performed By: #### C BC, BMP #### [address] [address] Blanching Machine Operator: David Tate MD MCV (RBC) [Entitic vol] 96.9 fL Normal 82.6-102.9 [facility] Comment on above: Performed By: #### C BC, BMP #### [address] [phone] Blanching Machine Operator: David Tate MD NRBC Automated 0.0 per 100 WBC Normal 0.0 [facility] Comment on above: Performed By: #### C BC, BMP #### [address] [address] Blanching Machine Operator: David Tate MD Platelet mean volume (Bld) [Entitic vol] 11.1 fL Normal 8.1-13.5 [facility] Comment on above: Performed By: #### C BC, BMP #### [address] [address] Blanching Machine Operator: David Tate MD Platelets (Bld) [#/Vol] 348 10*3/uL Normal 138-453 [facility] Comment on above: Performed By: #### C BC, BMP #### [address] [address] Blanching Machine Operator: David Tate MD RBC (Bld) [#/Vol] 2.56 10*6/uL Low 4.21-5.77 [facility] Comment on above: Performed By: #### C BC, BMP #### [facility] [address] [place], [place] [phone] Blanching Machine Operator: David Tate MD WBC (Bld) [#/Vol] 6.6 10*3/uL Normal 3.5-11.3 [facility] Comment on above: Performed By: #### C CHER, BMP #### [facility] [address] [place], [place] [phone] Blanching Machine Operator: David Tate MD Erythrocyte distribution width (RBC) [Ratio] 14.6 % High 11.8 - 14.4 % [place] Hematocrit (Bld) [Volume fraction] 24.8 % Low 40.7 - 50.3 % [place] Hemoglobin (Bld) [Mass/Vol] 7.8 g/dL Low 13 - 17 g/dL [place] Interpretation and review of laboratory results Abnormal [place] MCH (RBC) [Entitic mass] 30.5 pg 25.2 - 33.5 pg [place] MCHC (RBC) [Mass/Vol] 31.5 g/dL 28.4 - 34.8 g/dL [place] MCV (RBC) [Entitic vol] 96.9 fL 82.6 - 102.9 fL [place] Platelet mean volume (Bld) [Entitic vol] 11.1 fL 8.1 - 13.5 fL [place] Platelets (Bld) [#/Vol] 348 10*3/uL [place] RBC (Bld) [#/Vol] 2.56 10*6/uL Low 4.21 - 5.7 7 m/uL [place] WBC (Bld) [#/Vol] 0.0 10*3/uL 0.0 per 10 0 WBC [place] WBC (Bld) [#/Vol] 6.6 10*3/uL [facility] [place] BASIC METABOLIC PANELon 11-2 Calcium [Mass/Vol] 7.4 mg/dL Low 8.6-10.3 [facility] Comment on above: Order Comment: No: D o not add to previous draw Performed By: #### 5 0608 #### [facility] [address] [place] [address], [place] Chloride [Moles/Vol] 106 mmol/L Normal 98-107 [facility] Comment on above: Order Comment: No: D o not add to previous draw Performed By: #### 5 0608 #### [facility] [address] [place] [address], [place] CO2 [Moles/Vol] 22 mmol/L Normal 21-31 [facility] Comment on above: Order Comment: No: D o not add to previous draw Performed By: #### 5 0608 #### [facility] [address] [place] [address], [place] Creatinine [Mass/Vol] 3.64 mg/dL High 0.70-1.30 [facility] Comment on above: Order Comment: No: D o not add to previous draw Performed By: #### 5 0608 #### [facility] [address] [place] [address], [place] GFR/1.73 sq M predicted among blacks MDRD (S/P/Bld) [Vol rate/Area] 20 ml/min/1.73sq m Abnormal >60 [facility] Comment on above: Order Comment: No: D o not add to previous draw Result Comment: Calc ulation may not be valid for patients over 70 years Performed By: #### 5 0608 #### [facility] [address] [place] [address], [place] GFR/1.73 sq M predicted among non-blacks MDRD (S/P/Bld) [Vol rate/Area] 16 ml/min/1.73sq m Abnormal >60 [facility] Comment on above: Order Comment: No: D o not add to previous draw Result Comment: Calc ulation may not be valid for patients over 70 years Performed By: #### 5 0608 #### [facility] [address] [place] [address], [facility] Glucose [Mass/Vol] 87 mg/dL Normal 70-100 [facility] Comment on above: Order Comment: No: D o not add to previous draw Performed By: #### 5 0608 #### [facility] [address] [place] [address], [place] Potassium [Moles/Vol] 4.4 mmol/L Normal 3.5-5.1 [facility] Comment on above: Order Comment: No: D o not add to previous draw Performed By: #### 5 0608 #### [facility] [address] [place] [address], [facility] Sodium [Moles/Vol] 134 mmol/L Low 136-145 [facility] Comment on above: Order Comment: No: D o not add to previous draw Performed By: #### 5 0608 #### [facility] [address] [place] [id number], [facility] Urea nitrogen [Mass/Vol] 32 mg/dL High 7-25 [facility] Comment on above: Order Comment: No: D o not add to previous draw Performed By: #### 5 0608 #### [facility] [address] [place] [address], [facility] CBC COMPLETE BLOOD COUNTon 11-26-2019 Erythrocyte distribution width (RBC) [Ratio] 15.3 % High 11.5-15.0 [facility] Comment on above: Order Comment: No: D o not add to previous draw Performed By: #### 1 0008 #### [facility] [address] [place] [address], [place] Hematocrit (Bld) [Volume fraction] 21.9 % Low 39.0-50.0 [facility] Comment on above: Order Comment: No: D o not add to previous draw Performed By: #### 1 0008 #### [facility] [address] [place] [address], [facility] Hemoglobin (Bld) [Mass/Vol] 7.4 g/dL Low 13.0-17.0 [facility] Comment on above: Order Comment: No: D o not add to previous draw Performed By: #### 1 0008 #### [facility] [address] [place] [address], [facility] MCH (RBC) [Entitic mass] 31.6 pg Normal 27.0-33.0 [facility] Comment on above: Order Comment: No: D o not add to previous draw Performed By: #### 1 0008 #### [facility] [address] [place] [address], [facility] MCHC (RBC) [Mass/Vol] 33.8 g/dL Normal 32.0-35.0 [facility] Comment on above: Order Comment: No: D o not add to previous draw Performed By: #### 1 0008 #### [facility] [address] [facility] [place] [id number], [facility] MCV (RBC) [Entitic vol] 93.6 fL Normal 82.0-98.0 [facility] Comment on above: Order Comment: No: D o not add to previous draw Performed By: #### 1 0008 #### [facility] [address] [facility] [place] [address], [facility] Nucleated RBC/100 WBC (Bld) [Ratio] 0 % Normal 0-0 [facility] Comment on above: Order Comment: No: D o not add to previous draw Performed By: #### 1 0008 #### [facility] [address] [place] [id number], [facility] PLAT CNT 164 10*3/uL Normal 150-400 [facility] Comment on above: Order Comment: No: D o not add to previous draw Performed By: #### 1 0008 #### [facility] [address] [place] [address], [facility] RBC (Bld) [#/Vol] 2.34 10*6/uL Low 4.20-5.70 [facility] Comment on above: Order Comment: No: D o not add to previous draw Performed By: #### 1 0008 #### [facility] [address] [place] [address], [facility] WBC (Bld) [#/Vol] 3.48 10*3/uL Low 4.00-10.60 [facility] Comment on above: Order Comment: No: D o not add to previous draw Performed By: #### 1 0008 #### [facility] [address] [place] [id number], [facility] MAGNESIUM BLOODon 09-26-2020 Magnesium [Mass/Vol] 1.6 mg/dL Low 1.9-2.7 [facility] Comment on above: Order Comment: No: D o not add to previous draw Performed By: #### 5 0608 #### [facility] [address] [place] [address], [facility] BASIC METABOLIC PANELon 09-04 Calcium [Mass/Vol] 8.0 mg/dL Low 8.6-10.3 [facility] Comment on above: Order Comment: No: D o not add to previous draw Performed By: #### 0 0071 ####[facility] [place] [address], [facility] Chloride [Moles/Vol] 108 mmol/L High 98-107 [facility] Comment on above: Order Comment: No: D o not add to previous draw Performed By: #### 0 0071 ####[facility] [place] [address], [place] CO2 [Moles/Vol] 20 mmol/L Low 21-31 [facility] Comment on above: Order Comment: No: D o not add to previous draw Performed By: #### 0 0071 ####[facility] [place] [address], [facility] Creatinine [Mass/Vol] 3.44 mg/dL High 0.70-1.30 [facility] Comment on above: Order Comment: No: D o not add to previous draw Performed By: #### 0 0071 ####[facility] [place] [address], [facility] GFR/1.73 sq M predicted among blacks MDRD (S/P/Bld) [Vol rate/Area] 21 ml/min/1.73sq m Abnormal >60 [facility] Comment on above: Order Comment: No: D o not add to previous draw Result Comment: Calc ulation may not be valid for patients over 70 years Performed By: #### 0 0071 ####[facility] [place] [address], [facility] GFR/1.73 sq M predicted among non-blacks MDRD (S/P/Bld) [Vol rate/Area] 18 ml/min/1.73sq m Abnormal >60 [facility] Comment on above: Order Comment: No: D o not add to previous draw Result Comment: Calc ulation may not be valid for patients over 70 years Performed By: #### 0 0071 ####[facility] [place] [address], [facility] Glucose [Mass/Vol] 88 mg/dL Normal 70-100 [facility] Comment on above: Order Comment: No: D o not add to previous draw Performed By: #### 0 0071 ####[facility] [place] [address], [facility] Potassium [Moles/Vol] 4.1 mmol/L Normal 3.5-5.1 [facility] Comment on above: Order Comment: No: D o not add to previous draw Performed By: #### 0 0071 ####[facility] Sodium [Moles/Vol] 134 mmol/L Low 136-145 [facility] Comment on above: Order Comment: No: D o not add to previous draw Performed By: #### 0 0071 ####[facility] Urea nitrogen [Mass/Vol] 27 mg/dL High 7-25 [facility] Comment on above: Order Comment: No: D o not add to previous draw Performed By: #### 0 0071 ####[place] [id number] [address] CBC COMPLETE BLOOD COUNTon 11-25-2019 Erythrocyte distribution width (RBC) [Ratio] 15.4 % High 11.5-15.0 [facility] Comment on above: Order Comment: The A ptima SARS-CoV-2 assay is a nucleic acid amplification test intended for the qualitative detection of RNA from SARS-CoV-2 isolated and purified from nasopharyngeal (COMPOSITION WEATHERBOARD INSTALLER),oropharyngeal (OP), nasal swab, sputum, and bronchoalveolar lavage (BAL) specimens from patients with signs and symptoms of infection who are suspected of COVID-19. Results are for the identification of SARS-CoV-2 RNA. The SARS-CoV-2 RNA is generally detectable during the acute phase of infection. The Aptima SARS-CoV-2 Assay on the [employer] and [employer] Fusion system is intended for use by laboratory personnel specifically instructed and trained in the operation of the [employer] and [employer] Fusion system. The Aptima SARS-CoV-2 assay is [...] information. Performed By: #### 3 1792 #### [facility] [address] [facility]. [address] Hematocrit (Bld) [Volume fraction] 22.6 % Low 39.0-50.0 [facility] Comment on above: Order Comment: The A ptima SARS-CoV-2 assay is a nucleic acid amplification test intended for the qualitative detection of RNA from SARS-CoV-2 isolated and purified from nasopharyngeal (COMPOSITION WEATHERBOARD INSTALLER),oropharyngeal (OP), nasal swab, sputum, and bronchoalveolar lavage (BAL) specimens from patients with signs and symptoms of infection who are suspected of COVID-19. Results are for the identification of SARS-CoV-2 RNA. The SARS-CoV-2 RNA is generally detectable during the acute phase of infection. The Aptima SARS-CoV-2 Assay on the [employer]) and [employer] Fusion system is intended for use by laboratory personnel specifically instructed and trained in the operation of the [employer] and [employer] Fusion system. The Aptima SARS-CoV-2 assay is [...] information. Performed By: #### 3 1792 #### [facility] [address] Hemoglobin (Bld) [Mass/Vol] 7.5 g/dL Low 13.0-17.0 [facility] Comment on above: Order Comment: The A ptima SARS-CoV-2 assay is a nucleic acid amplification test intended for the qualitative detection of RNA from SARS-CoV-2 isolated and purified from nasopharyngeal (COMPOSITION WEATHERBOARD INSTALLER),oropharyngeal (OP), nasal swab, sputum, and bronchoalveolar lavage (BAL) specimens from patients with signs and symptoms of infection who are suspected of COVID-19. Results are for the identification of SARS-CoV-2 RNA. The SARS-CoV-2 RNA is generally detectable during the acute phase of infection. The Aptima SARS-CoV-2 Assay on the [employer] Fusion system is intended for use by laboratory personnel specifically instructed and trained in the operation of the [employer] Fusion system. The Aptima SARS-CoV-2 assay is [...] information. Performed By: #### 3 1792 #### [facility] [address] [place] [address], [facility] MCH (RBC) [Entitic mass] 30.9 pg Normal 27.0-33.0 [facility] Comment on above: Order Comment: The A ptima SARS-CoV-2 assay is a nucleic acid amplification test intended for the qualitative detection of RNA from SARS-CoV-2 isolated and purified from nasopharyngeal (COMPOSITION WEATHERBOARD INSTALLER),oropharyngeal (OP), nasal swab, sputum, and bronchoalveolar lavage (BAL) specimens from patients with signs and symptoms of infection who are suspected of COVID-19. Results are for the identification of SARS-CoV-2 RNA. The SARS-CoV-2 RNA is generally detectable during the acute phase of infection. The Aptima SARS-CoV-2 Assay on the [employer] Fusion system is intended for use by laboratory personnel specifically instructed and trained in the operation of the [employer] Fusion system. The Aptima SARS-CoV-2 assay is [...] information. Performed By: #### 3 1792 #### [facility] [address] [place] [address], [facility] MCHC (RBC) [Mass/Vol] 33.2 g/dL Normal 32.0-35.0 [facility] Comment on above: Order Comment: The A ptima SARS-CoV-2 assay is a nucleic acid amplification test intended for the qualitative detection of RNA from SARS-CoV-2 isolated and purified from nasopharyngeal (COMPOSITION WEATHERBOARD INSTALLER),oropharyngeal (OP), nasal swab, sputum, and bronchoalveolar lavage (BAL) specimens from patients with signs and symptoms of infection who are suspected of COVID-19. Results are for the identification of SARS-CoV-2 RNA. The SARS-CoV-2 RNA is generally detectable during the acute phase of infection. The Aptima SARS-CoV-2 Assay on the [employer] and [employer] Fusion system is intended for use by laboratory personnel specifically instructed and trained in the operation of the [employer]) and [employer] Fusion system. The Aptima SARS-CoV-2 assay is [...] information. Performed By: #### 3 1792 #### [address] [place] [address], [facility] MCV (RBC) [Entitic vol] 93.0 fL Normal 82.0-98.0 [facility] Comment on above: Order Comment: The A ptima SARS-CoV-2 assay is a nucleic acid amplification test intended for the qualitative detection of RNA from SARS-CoV-2 isolated and purified from nasopharyngeal (COMPOSITION WEATHERBOARD INSTALLER),oropharyngeal (OP), nasal swab, sputum, and bronchoalveolar lavage (BAL) specimens from patients with signs and symptoms of infection who are suspected of COVID-19. Results are for the identification of SARS-CoV-2 RNA. The SARS-CoV-2 RNA is generally detectable during the acute phase of infection. The Aptima SARS-CoV-2 Assay on the [employer] Fusion system is intended for use by laboratory personnel specifically instructed and trained in the operation of the [employer] Fusion system. The Aptima SARS-CoV-2 assay is [...] information. Performed By: #### 3 1792 #### [facility] [address] Nucleated RBC/100 WBC (Bld) [Ratio] 0 % Normal 0-0 [facility] Comment on above: Order Comment: The A ptima SARS-CoV-2 assay is a nucleic acid amplification test intended for the qualitative detection of RNA from SARS-CoV-2 isolated and purified from nasopharyngeal (COMPOSITION WEATHERBOARD INSTALLER),oropharyngeal (OP), nasal swab, sputum, and bronchoalveolar lavage (BAL) specimens from patients with signs and symptoms of infection who are suspected of COVID-19. Results are for the identification of SARS-CoV-2 RNA. The SARS-CoV-2 RNA is generally detectable during the acute phase of infection. The Aptima SARS-CoV-2 Assay on the [employer] Fusion system is intended for use by laboratory personnel specifically instructed and trained in the operation of the [employer] Fusion system. The Aptima SARS-CoV-2 assay is [...] information. Performed By: #### 3 1792 #### [facility] [address] [place] [address], [facility] PLAT CNT 169 10*3/uL Normal 150-400 [facility] Comment on above: Order Comment: The A ptima SARS-CoV-2 assay is a nucleic acid amplification test intended for the qualitative detection of RNA from SARS-CoV-2 isolated and purified from nasopharyngeal (COMPOSITION WEATHERBOARD INSTALLER),oropharyngeal (OP), nasal swab, sputum, and bronchoalveolar lavage (BAL) specimens from patients with signs and symptoms of infection who are suspected of COVID-19. Results are for the identification of SARS-CoV-2 RNA. The SARS-CoV-2 RNA is generally detectable during the acute phase of infection. The Aptima SARS-CoV-2 Assay on the [employer] system is intended for use by laboratory personnel specifically instructed and trained in the operation of the [employer] system. The Aptima SARS-CoV-2 assay is [...] information. Performed By: #### 3 1792 #### [address] RBC (Bld) [#/Vol] 2.43 10*6/uL Low 4.20-5.70 [facility] Comment on above: Order Comment: The A ptima SARS-CoV-2 assay is a nucleic acid amplification test intended for the qualitative detection of RNA from SARS-CoV-2 isolated and purified from nasopharyngeal (COMPOSITION WEATHERBOARD INSTALLER),oropharyngeal (OP), nasal swab, sputum, and bronchoalveolar lavage (BAL) specimens from patients with signs and symptoms of infection who are suspected of COVID-19. Results are for the identification of SARS-CoV-2 RNA. The SARS-CoV-2 RNA is generally detectable during the acute phase of infection. The Aptima SARS-CoV-2 Assay on the [employer] system is intended for use by laboratory personnel specifically instructed and trained in the operation of the [employer] system. The Aptima SARS-CoV-2 assay is [...] information. Performed By: #### 3 [id number] #### [facility] [address] WBC (Bld) [#/Vol] 3.03 10*3/uL Low 4.00-10.60 [facility] Comment on above: Order Comment: The A ptima SARS-CoV-2 assay is a nucleic acid amplification test intended for the qualitative detection of RNA from SARS-CoV-2 isolated and purified from nasopharyngeal (COMPOSITION WEATHERBOARD INSTALLER),oropharyngeal (OP), nasal swab, sputum, and bronchoalveolar lavage (BAL) specimens from patients with signs and symptoms of infection who are suspected of COVID-19. Results are for the identification of SARS-CoV-2 RNA. The SARS-CoV-2 RNA is generally detectable during the acute phase of infection. The Aptima SARS-CoV-2 Assay on the [employer] and [employer] system is intended for use by laboratory personnel specifically instructed and trained in the operation of the [employer] system. The Aptima SARS-CoV-2 assay is [...] information. Performed By: #### 3 [id number] #### [facility] [address] PROTHROMBIN TIMEon 0 INR Coag (PPP) [Relative time] 1.06 {INR} Normal 0.91-1.16 [facility] Comment on above: Order Comment: No: D [...] 1995;[id number]. Performed By: #### 5 [id number] #### [facility] [address] PT Coag (PPP) [Time] 13.8 s Normal 12.3-14.8 [facility] Comment on above: Order Comment: No: D o not add to previous draw Result Comment: ALL RESULTS MUST BE INTERPRETED WITH RESPECT TO BLOOD DRAWING ARTIFACT OR DILUTION ERROR OF ANTICOAGULANT AT THE TIME OF SAMPLING. Performed By: #### 5 [id number] #### [facility] [address] BASIC METABOLIC PANELon 11-2 Calcium [Mass/Vol] 7.9 mg/dL Low 8.6-10.3 [facility] Comment on above: Order Comment: No: D o not add to previous draw Performed By: #### 5 [id number] #### [facility] [address] Chloride [Moles/Vol] 109 mmol/L High 98-107 [facility] Comment on above: Order Comment: No: D o not add to previous draw Performed By: #### 5 [id number] #### [facility] [address] [place] [address], [place] CO2 [Moles/Vol] 21 mmol/L Normal 21-31 [facility] Comment on above: Order Comment: No: D o not add to previous draw Performed By: #### 5 [id number] #### [facility] [address] [place] [address], [place] Creatinine [Mass/Vol] 3.69 mg/dL High 0.70-1.30 [facility] Comment on above: Order Comment: No: D o not add to previous draw Performed By: #### 5 [id number] #### [facility] [address] [place] [address], [place] GFR/1.73 sq M predicted among blacks MDRD (S/P/Bld) [Vol rate/Area] 20 ml/min/1.73sq m Abnormal >60 [facility] Comment on above: Order Comment: No: D o not add to previous draw Result Comment: Calc ulation may not be valid for patients over 70 years Performed By: #### 5 [id number] #### [facility] [address] [place] [address], [place] GFR/1.73 sq M predicted among non-blacks MDRD (S/P/Bld) [Vol rate/Area] 16 ml/min/1.73sq m Abnormal >60 [facility] Comment on above: Order Comment: No: D o not add to previous draw Result Comment: Calc ulation may not be valid for patients over 70 years Performed By: #### 5 [id number] #### [facility] [address] [place] [address], [place] Glucose [Mass/Vol] 82 mg/dL Normal 70-100 [facility] Comment on above: Order Comment: No: D o not add to previous draw Performed By: #### 5 [id number] #### [facility] [address] Potassium [Moles/Vol] 4.1 mmol/L Normal 3.5-5.1 [facility] Comment on above: Order Comment: No: D o not add to previous draw Performed By: #### 5 [id number] #### [facility] [address] [place] [address], [facility] Sodium [Moles/Vol] 136 mmol/L Normal 136-145 [facility] Comment on above: Order Comment: No: D o not add to previous draw Performed By: #### 5 [id number] #### [facility] [address] Urea nitrogen [Mass/Vol] 32 mg/dL High 7-25 [facility] Comment on above: Order Comment: No: D o not add to previous draw Performed By: #### 5 [id number] #### [facility] [address] CBC COMPLETE BLOOD COUNTon 11-24-2019 Erythrocyte distribution width (RBC) [Ratio] 15.9 % High 11.5-15.0 [facility] Comment on above: Order Comment: The A ptima SARS-CoV-2 assay is a nucleic acid amplification test intended for the qualitative detection of RNA from SARS-CoV-2 isolated and purified from nasopharyngeal (COMPOSITION WEATHERBOARD INSTALLER),oropharyngeal (OP), nasal swab, sputum, and bronchoalveolar lavage (BAL) specimens from patients with signs and symptoms of infection who are suspected of COVID-19. Results are for the identification of SARS-CoV-2 RNA. The SARS-CoV-2 RNA is generally detectable during the acute phase of infection. The Aptima SARS-CoV-2 Assay on the [employer] system is intended for use by laboratory personnel specifically instructed and trained in the operation of the [employer] system. The Aptima SARS-CoV-2 assay is [...] information. Performed By: #### 3 [id number] #### [facility] [address] [place] [address], [facility] Hematocrit (Bld) [Volume fraction] 24.7 % Low 39.0-50.0 [facility] Comment on above: Order Comment: The A ptima SARS-CoV-2 assay is a nucleic acid amplification test intended for the qualitative detection of RNA from SARS-CoV-2 isolated and purified from nasopharyngeal (COMPOSITION WEATHERBOARD INSTALLER),oropharyngeal (OP), nasal swab, sputum, and bronchoalveolar lavage (BAL) specimens from patients with signs and symptoms of infection who are suspected of COVID-19. Results are for the identification of SARS-CoV-2 RNA. The SARS-CoV-2 RNA is generally detectable during the acute phase of infection. The Aptima SARS-CoV-2 Assay on the [employer] and [employer] Fusion system is intended for use by laboratory personnel specifically instructed and trained in the operation of the [employer] system. The Aptima SARS-CoV-2 assay is [...] information. Performed By: #### 3 1792 #### [facility] [address] [place] [address], [facility] Hemoglobin (Bld) [Mass/Vol] 8.2 g/dL Low 13.0-17.0 [facility] Comment on above: Order Comment: The A ptima SARS-CoV-2 assay is a nucleic acid amplification test intended for the qualitative detection of RNA from SARS-CoV-2 isolated and purified from nasopharyngeal (COMPOSITION WEATHERBOARD INSTALLER),oropharyngeal (OP), nasal swab, sputum, and bronchoalveolar lavage (BAL) specimens from patients with signs and symptoms of infection who are suspected of COVID-19. Results are for the identification of SARS-CoV-2 RNA. The SARS-CoV-2 RNA is generally detectable during the acute phase of infection. The Aptima SARS-CoV-2 Assay on the [employer] system is intended for use by laboratory personnel specifically instructed and trained in the operation of the [employer] system. The Aptima SARS-CoV-2 assay is [...] information. Performed By: #### 3 1792 #### [address] MCH (RBC) [Entitic mass] 31.2 pg Normal 27.0-33.0 [facility] Comment on above: Order Comment: The A ptima SARS-CoV-2 assay is a nucleic acid amplification test intended for the qualitative detection of RNA from SARS-CoV-2 isolated and purified from nasopharyngeal (COMPOSITION WEATHERBOARD INSTALLER),oropharyngeal (OP), nasal swab, sputum, and bronchoalveolar lavage (BAL) specimens from patients with signs and symptoms of infection who are suspected of COVID-19. Results are for the identification of SARS-CoV-2 RNA. The SARS-CoV-2 RNA is generally detectable during the acute phase of infection. The Aptima SARS-CoV-2 Assay on the [employer] system is intended for use by laboratory personnel specifically instructed and trained in the operation of the [employer] system. The Aptima SARS-CoV-2 assay is [...] information. Performed By: #### 3 1792 #### [facility] [address] [place] [address], [facility] MCHC (RBC) [Mass/Vol] 33.2 g/dL Normal 32.0-35.0 [facility] Comment on above: Order Comment: The A ptima SARS-CoV-2 assay is a nucleic acid amplification test intended for the qualitative detection of RNA from SARS-CoV-2 isolated and purified from nasopharyngeal (COMPOSITION WEATHERBOARD INSTALLER),oropharyngeal (OP), nasal swab, sputum, and bronchoalveolar lavage (BAL) specimens from patients with signs and symptoms of infection who are suspected of COVID-19. Results are for the identification of SARS-CoV-2 RNA. The SARS-CoV-2 RNA is generally detectable during the acute phase of infection. The Aptima SARS-CoV-2 Assay on the [employer] system is intended for use by laboratory personnel specifically instructed and trained in the operation of the [employer] and [employer] Fusion system. The Aptima SARS-CoV-2 assay is [...] information. Performed By: #### 3 1792 #### [facility] [address] [place] [address], [facility] MCV (RBC) [Entitic vol] 93.9 fL Normal 82.0-98.0 [facility] Comment on above: Order Comment: The A ptima SARS-CoV-2 assay is a nucleic acid amplification test intended for the qualitative detection of RNA from SARS-CoV-2 isolated and purified from nasopharyngeal (COMPOSITION WEATHERBOARD INSTALLER),oropharyngeal (OP), nasal swab, sputum, and bronchoalveolar lavage (BAL) specimens from patients with signs and symptoms of infection who are suspected of COVID-19. Results are for the identification of SARS-CoV-2 RNA. The SARS-CoV-2 RNA is generally detectable during the acute phase of infection. The Aptima SARS-CoV-2 Assay on the [employer] system is intended for use by laboratory personnel specifically instructed and trained in the operation of the [employer] system. The Aptima SARS-CoV-2 assay is [...] information. Performed By: #### 3 1792 #### [facility] [address] Nucleated RBC/100 WBC (Bld) [Ratio] 0 % Normal 0-0 [facility] Comment on above: Order Comment: The A ptima SARS-CoV-2 assay is a nucleic acid amplification test intended for the qualitative detection of RNA from SARS-CoV-2 isolated and purified from nasopharyngeal (COMPOSITION WEATHERBOARD INSTALLER),oropharyngeal (OP), nasal swab, sputum, and bronchoalveolar lavage (BAL) specimens from patients with signs and symptoms of infection who are suspected of COVID-19. Results are for the identification of SARS-CoV-2 RNA. The SARS-CoV-2 RNA is generally detectable during the acute phase of infection. The Aptima SARS-CoV-2 Assay on the [employer] system is intended for use by laboratory personnel specifically instructed and trained in the operation of the [employer] system. The Aptima SARS-CoV-2 assay is [...] information. Performed By: #### 3 1792 #### [facility] [address] [place] [address], [facility] PLAT CNT 176 10*3/uL Normal 150-400 [facility] Comment on above: Order Comment: The A ptima SARS-CoV-2 assay is a nucleic acid amplification test intended for the qualitative detection of RNA from SARS-CoV-2 isolated and purified from nasopharyngeal (COMPOSITION WEATHERBOARD INSTALLER),oropharyngeal (OP), nasal swab, sputum, and bronchoalveolar lavage (BAL) specimens from patients with signs and symptoms of infection who are suspected of COVID-19. Results are for the identification of SARS-CoV-2 RNA. The SARS-CoV-2 RNA is generally detectable during the acute phase of infection. The Aptima SARS-CoV-2 Assay on the [employer] and [employer] Fusion system is intended for use by laboratory personnel specifically instructed and trained in the operation of the [employer] system. The Aptima SARS-CoV-2 assay is [...] information. Performed By: #### 3 1792 #### [facility] [address] [place] [address], [facility] RBC (Bld) [#/Vol] 2.63 10*6/uL Low 4.20-5.70 [facility] Comment on above: Order Comment: The A ptima SARS-CoV-2 assay is a nucleic acid amplification test intended for the qualitative detection of RNA from SARS-CoV-2 isolated and purified from nasopharyngeal (COMPOSITION WEATHERBOARD INSTALLER),oropharyngeal (OP), nasal swab, sputum, and bronchoalveolar lavage (BAL) specimens from patients with signs and symptoms of infection who are suspected of COVID-19. Results are for the identification of SARS-CoV-2 RNA. The SARS-CoV-2 RNA is generally detectable during the acute phase of infection. The Aptima SARS-CoV-2 Assay on the [employer] system is intended for use by laboratory personnel specifically instructed and trained in the operation of the [employer] system. The Aptima SARS-CoV-2 assay is [...] information. Performed By: #### 3 1792 #### [facility] [address] [place] [address], [facility] WBC (Bld) [#/Vol] 4.12 10*3/uL Normal 4.00-10.60 [facility] Comment on above: Order Comment: The A ptima SARS-CoV-2 assay is a nucleic acid amplification test intended for the qualitative detection of RNA from SARS-CoV-2 isolated and purified from nasopharyngeal (COMPOSITION WEATHERBOARD INSTALLER),oropharyngeal (OP), nasal swab, sputum, and bronchoalveolar lavage (BAL) specimens from patients with signs and symptoms of infection who are suspected of COVID-19. Results are for the identification of SARS-CoV-2 RNA. The SARS-CoV-2 RNA is generally detectable during the acute phase of infection. The Aptima SARS-CoV-2 Assay on the [employer] system is intended for use by laboratory personnel specifically instructed and trained in the operation of the [employer] system. The Aptima SARS-CoV-2 assay is [...] information. Performed By: #### 3 1792 #### [facility] [address] *SARS-CoV-2 COVID-19on 09-23 [id number] Not Detected Normal Not Detected [facility] Comment on above: Order Comment: The A ptima SARS-CoV-2 assay is a nucleic acid amplification testintended for the qualitative detection of RNA from SARS-CoV-2 isolatedand purified from nasopharyngeal (COMPOSITION WEATHERBOARD INSTALLER),oropharyngeal (OP), nasal swab,sputum, and bronchoalveolar lavage (BAL) specimens from patients withsigns and symptoms of infection who are suspected of COVID-19.Results are for the identification of SARS-CoV-2 RNA. The SARS-CoV-2 RNAis generally detectable during the acute phase of infection.The Aptima SARS-CoV-2 Assay on the [employer] system isintended for use by laboratory personnel specifically instructed andtrained in the operation of the [employer] system. TheAptima SARS-CoV-2 assay is only [...] information. Performed By: #### 1 0008 #### [address] BASIC METABOLIC PANELon 11-2 Calcium [Mass/Vol] 7.7 mg/dL Low 8.6-10.3 [facility] Comment on above: Order Comment: No: D o not add to previous draw Performed By: #### 5 [id number] #### [address] Chloride [Moles/Vol] 109 mmol/L High 98-107 [facility] Comment on above: Order Comment: No: D o not add to previous draw Performed By: #### 5 6101 #### [facility] [address] [place] [address], [place] CO2 [Moles/Vol] 20 mmol/L Low 21-31 [facility] Comment on above: Order Comment: No: D o not add to previous draw Performed By: #### 5 6101 #### [facility] [address] [place] [address], [place] Creatinine [Mass/Vol] 3.95 mg/dL High 0.70-1.30 [facility] Comment on above: Order Comment: No: D o not add to previous draw Performed By: #### 5 [id number] #### [facility] [address] [place] [address], [place] GFR/1.73 sq M predicted among blacks MDRD (S/P/Bld) [Vol rate/Area] 18 ml/min/1.73sq m Abnormal >60 [facility] Comment on above: Order Comment: No: D o not add to previous draw Result Comment: Calc ulation may not be valid for patients over 70 years Performed By: #### 5 [id number] #### [facility] [address] [place] [address], [place] GFR/1.73 sq M predicted among non-blacks MDRD (S/P/Bld) [Vol rate/Area] 15 ml/min/1.73sq m Abnormal >60 [facility] Comment on above: Order Comment: No: D o not add to previous draw Result Comment: Calc ulation may not be valid for patients over 70 years Performed By: #### 5 [id number] #### [facility] [address] [place] [address], [place] Glucose [Mass/Vol] 86 mg/dL Normal 70-100 [facility] Comment on above: Order Comment: No: D o not add to previous draw Performed By: #### 5 6101 #### [facility] [address] [place] [address], [place] Potassium [Moles/Vol] 4.0 mmol/L Normal 3.5-5.1 [facility] Comment on above: Order Comment: No: D o not add to previous draw Performed By: #### 5 [id number] #### [facility] [address] [place] [address], [facility] Sodium [Moles/Vol] 135 mmol/L Low 136-145 [facility] Comment on above: Order Comment: No: D o not add to previous draw Performed By: #### 5 6101 #### [facility] [address] [place] [address], [facility] Urea nitrogen [Mass/Vol] 35 mg/dL High 7-25 [facility] Comment on above: Order Comment: No: D o not add to previous draw Performed By: #### 5 [id number] #### [facility] [address] [place] [address], [facility] CBC COMPLETE BLOOD COUNTon 11-22-2019 Erythrocyte distribution width (RBC) [Ratio] 16.3 % High 11.5-15.0 [facility] Comment on above: Order Comment: No: D o not add to previous draw Performed By: #### 3 0478 #### [facility] [address] [place] [address], [facility] Hematocrit (Bld) [Volume fraction] 23.3 % Low 39.0-50.0 [facility] Comment on above: Order Comment: No: D o not add to previous draw Performed By: #### 3 0478 #### [facility] [address] [place] [address], [facility] Hemoglobin (Bld) [Mass/Vol] 7.5 g/dL Low 13.0-17.0 [facility] Comment on above: Order Comment: No: D o not add to previous draw Performed By: #### 3 0478 #### [facility] [address] [place] [address], [facility] MCH (RBC) [Entitic mass] 30.2 pg Normal 27.0-33.0 [facility] Comment on above: Order Comment: No: D o not add to previous draw Performed By: #### 3 0478 #### [facility] [address] [place] [address], [facility] MCHC (RBC) [Mass/Vol] 32.2 g/dL Normal 32.0-35.0 [facility] Comment on above: Order Comment: No: D o not add to previous draw Performed By: #### 3 0478 #### [facility] [address] [place] [address], [facility] MCV (RBC) [Entitic vol] 94.0 fL Normal 82.0-98.0 [facility] Comment on above: Order Comment: No: D o not add to previous draw Performed By: #### 3 0478 #### [facility] [address] [facility] [place] [address], [facility] Nucleated RBC/100 WBC (Bld) [Ratio] 0 % Normal 0-0 [facility] Comment on above: Order Comment: No: D o not add to previous draw Performed By: #### 3 0478 #### [facility] [address] [place] [address], [facility] PLAT CNT 156 10*3/uL Normal 150-400 [facility] Comment on above: Order Comment: No: D o not add to previous draw Performed By: #### 3 0478 #### [facility] [address] [place] [address], [facility] RBC (Bld) [#/Vol] 2.48 10*6/uL Low 4.20-5.70 [facility] Comment on above: Order Comment: No: D o not add to previous draw Performed By: #### 3 0478 #### [facility] [address] [place] [address], [facility] WBC (Bld) [#/Vol] 4.20 10*3/uL Normal 4.00-10.60 [facility] Comment on above: Order Comment: No: D o not add to previous draw Performed By: #### 3 0478 #### [facility] [address] [place] [address], [facility] MAGNESIUM BLOODon 09-22-2020 Magnesium [Mass/Vol] 1.2 mg/dL Low 1.9-2.7 [facility] Comment on above: Order Comment: No: D o not add to previous draw Performed By: #### 5 [id number] #### [facility] [address] [place] [address], [facility] PHOSPHORUS BLOODon 0 Phosphate [Mass/Vol] 2.6 mg/dL Normal 2.5-5.0 [facility] Comment on above: Order Comment: No: D o not add to previous draw Performed By: #### 5 [id number] #### [facility] [address] [place] [address], [facility] BASIC METABOLIC PANELon 09-03 Calcium [Mass/Vol] 7.9 mg/dL Low 8.6-10.3 [facility] Comment on above: Order Comment: No: D o not add to previous draw Performed By: #### 5 0608 #### [facility] [address] [place] [address], [place] Chloride [Moles/Vol] 110 mmol/L High 98-107 [facility] Comment on above: Order Comment: No: D o not add to previous draw Performed By: #### 5 0608 #### [facility] [address] [place] [address], [place] CO2 [Moles/Vol] 21 mmol/L Normal 21-31 [facility] Comment on above: Order Comment: No: D o not add to previous draw Performed By: #### 5 0608 #### [facility] [address] [place] [address], [place] Creatinine [Mass/Vol] 3.98 mg/dL High 0.70-1.30 [facility] Comment on above: Order Comment: No: D o not add to previous draw Performed By: #### 5 0608 #### [facility] [address] [place] [address], [facility] GFR/1.73 sq M predicted among blacks MDRD (S/P/Bld) [Vol rate/Area] 18 ml/min/1.73sq m Abnormal >60 [facility] Comment on above: Order Comment: No: D o not add to previous draw Result Comment: Calc ulation may not be valid for patients over 70 years Performed By: #### 5 [id number] #### [facility] [address] [place] [address], [facility] GFR/1.73 sq M predicted among non-blacks MDRD (S/P/Bld) [Vol rate/Area] 15 ml/min/1.73sq m Abnormal >60 [facility] Comment on above: Order Comment: No: D o not add to previous draw Result Comment: Calc ulation may not be valid for patients over 70 years Performed By: #### 5 [id number] #### [facility] [address] [place] [address], [facility] Glucose [Mass/Vol] 85 mg/dL Normal 70-100 [facility] Comment on above: Order Comment: No: D o not add to previous draw Performed By: #### 5 [id number] #### [facility] [address] [place] [address], [place] Potassium [Moles/Vol] 4.1 mmol/L Normal 3.5-5.1 [facility] Comment on above: Order Comment: No: D o not add to previous draw Performed By: #### 5 [id number] #### [facility] [address] [place] [address], [place] Sodium [Moles/Vol] 137 mmol/L Normal 136-145 [facility] Comment on above: Order Comment: No: D o not add to previous draw Performed By: #### 5 [id number] #### [facility] [address] [facility] [address] Urea nitrogen [Mass/Vol] 33 mg/dL High 7-25 [facility] Comment on above: Order Comment: No: D o not add to previous draw Performed By: #### 5 [id number] #### [facility] [address] [facility]. [address] CBC COMPLETE BLOOD COUNTon 11-21-2019 Erythrocyte distribution width (RBC) [Ratio] 15.0 % Normal 11.5-15.0 [facility] Comment on above: Order Comment: The A ptima SARS-CoV-2 assay is a nucleic acid amplification test intended for the qualitative detection of RNA from SARS-CoV-2 isolated and purified from nasopharyngeal (COMPOSITION WEATHERBOARD INSTALLER),oropharyngeal (OP), nasal swab, sputum, and bronchoalveolar lavage (BAL) specimens from patients with signs and symptoms of infection who are suspected of COVID-19. Results are for the identification of SARS-CoV-2 RNA. The SARS-CoV-2 RNA is generally detectable during the acute phase of infection. The Aptima SARS-CoV-2 Assay on the [employer](BHI) and [employer](BHI) Fusion system is intended for use by laboratory personnel specifically instructed and trained in the operation of the [employer] and [employer](BHI) Fusion system. The Aptima SARS-CoV-2 assay is [...] information. Performed By: #### 3 [id number] #### [facility] [address] [place] [address], [facility] Hematocrit (Bld) [Volume fraction] 20.8 % Low 39.0-50.0 [facility] Comment on above: Order Comment: The A ptima SARS-CoV-2 assay is a nucleic acid amplification test intended for the qualitative detection of RNA from SARS-CoV-2 isolated and purified from nasopharyngeal (COMPOSITION WEATHERBOARD INSTALLER),oropharyngeal (OP), nasal swab, sputum, and bronchoalveolar lavage (BAL) specimens from patients with signs and symptoms of infection who are suspected of COVID-19. Results are for the identification of SARS-CoV-2 RNA. The SARS-CoV-2 RNA is generally detectable during the acute phase of infection. The Aptima SARS-CoV-2 Assay on the [employer] and [employer] Fusion system is intended for use by laboratory personnel specifically instructed and trained in the operation of the [employer] and [employer] Fusion system. The Aptima SARS-CoV-2 assay is [...] information. Performed By: #### 3 [id number] #### [address] Hemoglobin (Bld) [Mass/Vol] 6.8 g/dL Low 13.0-17.0 [facility] Comment on above: Order Comment: The A ptima SARS-CoV-2 assay is a nucleic acid amplification test intended for the qualitative detection of RNA from SARS-CoV-2 isolated and purified from nasopharyngeal (COMPOSITION WEATHERBOARD INSTALLER),oropharyngeal (OP), nasal swab, sputum, and bronchoalveolar lavage (BAL) specimens from patients with signs and symptoms of infection who are suspected of COVID-19. Results are for the identification of SARS-CoV-2 RNA. The SARS-CoV-2 RNA is generally detectable during the acute phase of infection. The Aptima SARS-CoV-2 Assay on the [employer] Fusion system is intended for use by laboratory personnel specifically instructed and trained in the operation of the [employer] and [employer] Fusion system. The Aptima SARS-CoV-2 assay is [...] information. Performed By: #### 3 [id number] #### [facility] [address] [place] [address], [facility] MCH (RBC) [Entitic mass] 31.2 pg Normal 27.0-33.0 [facility] Comment on above: Order Comment: The A ptima SARS-CoV-2 assay is a nucleic acid amplification test intended for the qualitative detection of RNA from SARS-CoV-2 isolated and purified from nasopharyngeal (COMPOSITION WEATHERBOARD INSTALLER),oropharyngeal (OP), nasal swab, sputum, and bronchoalveolar lavage (BAL) specimens from patients with signs and symptoms of infection who are suspected of COVID-19. Results are for the identification of SARS-CoV-2 RNA. The SARS-CoV-2 RNA is generally detectable during the acute phase of infection. The Aptima SARS-CoV-2 Assay on the [employer](BHI) and [employer] Fusion system is intended for use by laboratory personnel specifically instructed and trained in the operation of the [employer] and [employer] Fusion system. The Aptima SARS-CoV-2 assay is [...] information. Performed By: #### 3 [id number] #### [facility] [address] [place] [address], [facility] MCHC (RBC) [Mass/Vol] 32.7 g/dL Normal 32.0-35.0 [facility] Comment on above: Order Comment: The A ptima SARS-CoV-2 assay is a nucleic acid amplification test intended for the qualitative detection of RNA from SARS-CoV-2 isolated and purified from nasopharyngeal (COMPOSITION WEATHERBOARD INSTALLER),oropharyngeal (OP), nasal swab, sputum, and bronchoalveolar lavage (BAL) specimens from patients with signs and symptoms of infection who are suspected of COVID-19. Results are for the identification of SARS-CoV-2 RNA. The SARS-CoV-2 RNA is generally detectable during the acute phase of infection. The Aptima SARS-CoV-2 Assay on the [employer] Fusion system is intended for use by laboratory personnel specifically instructed and trained in the operation of the [employer] and [employer] Fusion system. The Aptima SARS-CoV-2 assay is [...] information. Performed By: #### 3 [id number] #### [address] MCV (RBC) [Entitic vol] 95.4 fL Normal 82.0-98.0 [facility] Comment on above: Order Comment: The A ptima SARS-CoV-2 assay is a nucleic acid amplification test intended for the qualitative detection of RNA from SARS-CoV-2 isolated and purified from nasopharyngeal (COMPOSITION WEATHERBOARD INSTALLER),oropharyngeal (OP), nasal swab, sputum, and bronchoalveolar lavage (BAL) specimens from patients with signs and symptoms of infection who are suspected of COVID-19. Results are for the identification of SARS-CoV-2 RNA. The SARS-CoV-2 RNA is generally detectable during the acute phase of infection. The Aptima SARS-CoV-2 Assay on the [employer] Fusion system is intended for use by laboratory personnel specifically instructed and trained in the operation of the [employer] and [employer] Fusion system. The Aptima SARS-CoV-2 assay is [...] information. Performed By: #### 3 [id number] #### [facility] [address] Nucleated RBC/100 WBC (Bld) [Ratio] 0 % Normal 0-0 [facility] Comment on above: Order Comment: The A ptima SARS-CoV-2 assay is a nucleic acid amplification test intended for the qualitative detection of RNA from SARS-CoV-2 isolated and purified from nasopharyngeal (COMPOSITION WEATHERBOARD INSTALLER),oropharyngeal (OP), nasal swab, sputum, and bronchoalveolar lavage (BAL) specimens from patients with signs and symptoms of infection who are suspected of COVID-19. Results are for the identification of SARS-CoV-2 RNA. The SARS-CoV-2 RNA is generally detectable during the acute phase of infection. The Aptima SARS-CoV-2 Assay on the [employer](BHI) and [employer](BHI) Fusion system is intended for use by laboratory personnel specifically instructed and trained in the operation of the [employer] and [employer](B[employer]) Fusion system. The Aptima SARS-CoV-2 assay is [...] information. Performed By: #### 3 [id number] #### [facility] [address] [facility]. [address] PLAT CNT 157 10*3/uL Normal 150-400 [facility] Comment on above: Order Comment: The A ptima SARS-CoV-2 assay is a nucleic acid amplification test intended for the qualitative detection of RNA from SARS-CoV-2 isolated and purified from nasopharyngeal (COMPOSITION WEATHERBOARD INSTALLER),oropharyngeal (OP), nasal swab, sputum, and bronchoalveolar lavage (BAL) specimens from patients with signs and symptoms of infection who are suspected of COVID-19. Results are for the identification of SARS-CoV-2 RNA. The SARS-CoV-2 RNA is generally detectable during the acute phase of infection. The Aptima SARS-CoV-2 Assay on the [employer] Fusion system is intended for use by laboratory personnel specifically instructed and trained in the operation of the [employer] and [employer] Fusion system. The Aptima SARS-CoV-2 assay is [...] information. Performed By: #### 3 [id number] #### [facility] [address] [place] [address], [facility] RBC (Bld) [#/Vol] 2.18 10*6/uL Low 4.20-5.70 [facility] Comment on above: Order Comment: The A ptima SARS-CoV-2 assay is a nucleic acid amplification test intended for the qualitative detection of RNA from SARS-CoV-2 isolated and purified from nasopharyngeal (COMPOSITION WEATHERBOARD INSTALLER),oropharyngeal (OP), nasal swab, sputum, and bronchoalveolar lavage (BAL) specimens from patients with signs and symptoms of infection who are suspected of COVID-19. Results are for the identification of SARS-CoV-2 RNA. The SARS-CoV-2 RNA is generally detectable during the acute phase of infection. The Aptima SARS-CoV-2 Assay on the [employer] Fusion system is intended for use by laboratory personnel specifically instructed and trained in the operation of the [employer] and [employer] Fusion system. The Aptima SARS-CoV-2 assay is [...] and epidemiological information. Performed By: #### 3 0292 #### [facility] [address] [place] [address], [facility] WBC (Bld) [#/Vol] 3.58 10*3/uL Low 4.00-10.60 [facility] Comment on above: Order Comment: The A ptima SARS-CoV-2 assay is a nucleic acid amplification test intended for the qualitative detection of RNA from SARS-CoV-2 isolated and purified from nasopharyngeal (COMPOSITION WEATHERBOARD INSTALLER),oropharyngeal (OP), nasal swab, sputum, and bronchoalveolar lavage (BAL) specimens from patients with signs and symptoms of infection who are suspected of COVID-19. Results are for the identification of SARS-CoV-2 RNA. The SARS-CoV-2 RNA is generally detectable during the acute phase of infection. The Aptima SARS-CoV-2 Assay on the [employer] Fusion system is intended for use by laboratory personnel specifically instructed and trained in the operation of the [employer] and [employer](BHI) Fusion system. The Aptima SARS-CoV-2 assay is [...] information. Performed By: #### 3 [id number] #### [facility] [address] [facility]. [address] HEMATOCRITon 09-21-2020 Hematocrit (Bld) [Volume fraction] 24.2 % Low 39.0-50.0 [facility] Comment on above: Order Comment: The A ptima SARS-CoV-2 assay is a nucleic acid amplification test intended for the qualitative detection of RNA from SARS-CoV-2 isolated and purified from nasopharyngeal (COMPOSITION WEATHERBOARD INSTALLER),oropharyngeal (OP), nasal swab, sputum, and bronchoalveolar lavage (BAL) specimens from patients with signs and symptoms of infection who are suspected of COVID-19. Results are for the identification of SARS-CoV-2 RNA. The SARS-CoV-2 RNA is generally detectable during the acute phase of infection. The Aptima SARS-CoV-2 Assay on the [employer] and [employer] Fusion system is intended for use by laboratory personnel specifically instructed and trained in the operation of the [employer] and [employer] Fusion system. The Aptima SARS-CoV-2 assay is [...] information. Performed By: #### 3 1792 #### [facility] [address] HEMOGLOBINon 09-21-2020 Hemoglobin (Bld) [Mass/Vol] 7.8 g/dL Low 13.0-17.0 [facility] Comment on above: Order Comment: The A ptima SARS-CoV-2 assay is a nucleic acid amplification test intended for the qualitative detection of RNA from SARS-CoV-2 isolated and purified from nasopharyngeal (COMPOSITION WEATHERBOARD INSTALLER),oropharyngeal (OP), nasal swab, sputum, and bronchoalveolar lavage (BAL) specimens from patients with signs and symptoms of infection who are suspected of COVID-19. Results are for the identification of SARS-CoV-2 RNA. The SARS-CoV-2 RNA is generally detectable during the acute phase of infection. The Aptima SARS-CoV-2 Assay on the [employer] Fusion system is intended for use by laboratory personnel specifically instructed and trained in the operation of the [employer] and [employer] Fusion system. The Aptima SARS-CoV-2 assay is [...] information. Performed By: #### 3 [id number] #### [facility] [address] PROTHROMBIN TIMEon 0 INR Coag (PPP) [Relative time] 1.09 {INR} Normal 0.91-1.16 [facility] Comment on above: Order Comment: No: D [...] 1995;[id number]. Performed By: #### 5 6101 #### [facility] [address] [place] [address], [facility] PT Coag (PPP) [Time] 14.1 s Normal 12.3-14.8 [facility] Comment on above: Order Comment: No: D o not add to previous draw Result Comment: ALL RESULTS MUST BE INTERPRETED WITH RESPECT TO BLOOD DRAWING ARTIFACT OR DILUTION ERROR OF ANTICOAGULANT AT THE TIME OF SAMPLING. Performed By: #### 5 6101 #### [facility] [address] [facility] [place] [address], [facility] RBC'S 1 UNITon 09-21-2020 CROSSMATCH INTERP 1 COMP Normal [facility] Comment on above: Order Comment: [place] nephrosis, please assess for hydronephrosis resolution Performed By: #### 8 [id number] ####[facility] PRODUCT CODE 1 [id number] Normal [facility] Comment on above: Order Comment: [place] nephrosis, please assess for hydronephrosis resolution Performed By: #### 8 6001 ####[facility] [place] [address], [facility] PRODUCT STATUS 1 PT Normal [facility] Comment on above: Order Comment: [place] nephrosis, please assess for hydronephrosis resolution Result Comment: Resu lt changed by IF on 09/21/2020 11:17. The previous value was XM. Result changed by IF on 09/22/2020 00:30. The previous value was IS. Performed By: #### 8 [id number] ####[facility] [place] [address], [facility] UNIT ABO 1 A Normal [facility] Comment on above: Order Comment: [place] nephrosis, please assess for hydronephrosis resolution Performed By: #### 8 6001 ####[facility] [place] [address], [facility] UNIT ID 1 [id number] Normal [facility] Comment on above: Order Comment: [place] nephrosis, please assess for hydronephrosis resolution Performed By: #### 8 6001 ####[facility] [place] [address], [facility] UNIT RH 1 Positive Normal [facility] Comment on above: Order Comment: [place] nephrosis, please assess for hydronephrosis resolution Performed By: #### 8 6001 ####[facility] [place] [address], [facility] TYPE AND SCREENon 09-21-2020 ABO INTERPRETATION A Normal [facility] Comment on above: Performed By: #### 6 2586 ####[facility] RH INTERPRETATION Positive Normal [facility] Comment on above: Performed By: #### 6 2586 ####[facility] *SARS-CoV-2 COVID-19on 09-20 [id number] Not Detected Normal Not Detected [facility] Comment on above: Order Comment: The A ptima SARS-CoV-2 assay is a nucleic acid amplification testintended for the qualitative detection of RNA from SARS-CoV-2 isolatedand purified from nasopharyngeal (COMPOSITION WEATHERBOARD INSTALLER),oropharyngeal (OP), nasal swab,sputum, and bronchoalveolar lavage (BAL) specimens from patients withsigns and symptoms of infection who are suspected of COVID-19.Results are for the identification of SARS-CoV-2 RNA. The SARS-CoV-2 RNAis generally detectable during the acute phase of infection.The Aptima SARS-CoV-2 Assay on the [employer] Fusion system isintended for use by laboratory personnel specifically instructed andtrained in the operation of the [employer] and [employer] Fusion system. TheAptima SARS-CoV-2 assay is only [...] information. Performed By: #### 1 0008 #### [facility] [address] BASIC METABOLIC PANELon 09-03 Calcium [Mass/Vol] 8.1 mg/dL Low 8.6-10.3 [facility] Comment on above: Order Comment: No: D o not add to previous draw Performed By: #### 5 0608 #### [facility] [address] [place] [address], [place] Chloride [Moles/Vol] 110 mmol/L High 98-107 [facility] Comment on above: Order Comment: No: D o not add to previous draw Performed By: #### 5 0608 #### [facility] [address] [place] [address], [place] CO2 [Moles/Vol] 21 mmol/L Normal 21-31 [facility] Comment on above: Order Comment: No: D o not add to previous draw Performed By: #### 5 0608 #### [facility] [address] [place] [address], [place] Creatinine [Mass/Vol] 4.19 mg/dL High 0.70-1.30 [facility] Comment on above: Order Comment: No: D o not add to previous draw Performed By: #### 5 0608 #### [facility] [address] [place] [address], [place] GFR/1.73 sq M predicted among blacks MDRD (S/P/Bld) [Vol rate/Area] 17 ml/min/1.73sq m Abnormal >60 [facility] Comment on above: Order Comment: No: D o not add to previous draw Result Comment: Calc ulation may not be valid for patients over 70 years Performed By: #### 5 [id number] #### [facility] [address] [place] [address], [place] GFR/1.73 sq M predicted among non-blacks MDRD (S/P/Bld) [Vol rate/Area] 14 ml/min/1.73sq m Abnormal >60 [facility] Comment on above: Order Comment: No: D o not add to previous draw Result Comment: Calc ulation may not be valid for patients over 70 years Performed By: #### 5 0608 #### [facility] [address] [place] [address], [place] Glucose [Mass/Vol] 94 mg/dL Normal 70-100 [facility] Comment on above: Order Comment: No: D o not add to previous draw Performed By: #### 5 0608 #### [facility] [address] [place] [address], [facility] Potassium [Moles/Vol] 4.4 mmol/L Normal 3.5-5.1 [facility] Comment on above: Order Comment: No: D o not add to previous draw Performed By: #### 5 0608 #### [facility] [address] [place] [id number], [facility] Sodium [Moles/Vol] 137 mmol/L Normal 136-145 [facility] Comment on above: Order Comment: No: D o not add to previous draw Performed By: #### 5 0608 #### [facility] [address] [place] [address], [facility] Urea nitrogen [Mass/Vol] 38 mg/dL High 7-25 [facility] Comment on above: Order Comment: No: D o not add to previous draw Performed By: #### 5 0608 #### [facility] [address] [facility] [place] [address], [facility] CBC W/DIFFon 09-20-2020 ABS BASOPHILS 0.0 10*3/uL Normal 0.0-0.2 [facility] Comment on above: Performed By: #### 3 2474 #### [facility] [address] [facility] [place] [address], [facility] ABS IMM GRANS 0.0 10*3/uL Normal 0.0-0.2 [facility] Comment on above: Performed By: #### 3 3584 #### [facility] [address] [place] [address], [facility] ABS NEUTROPHILS 2.3 10*3/uL Normal 1.6-7.6 [facility] Comment on above: Performed By: #### 3 1768 #### [facility] [address] [place] [id number], [facility] Basophils/100 WBC (Bld) 0.3 % Normal 0.0-1.0 [facility] Comment on above: Performed By: #### 3 1791 #### [facility] [address] [place] [address], [facility] Eosinophils (Bld) [#/Vol] 0.0 10*3/uL Normal 0.0-0.5 [facility] Comment on above: Performed By: #### 3 1791 #### [facility] [address] [facility] [place] [address], [facility] Eosinophils/100 WBC (Bld) 0.8 % Normal 0.0-6.0 [facility] Comment on above: Performed By: #### 3 1791 #### [facility] [address] [facility]. [address] Erythrocyte distribution width (RBC) [Ratio] 15.4 % High 11.5-15.0 [facility] Comment on above: Performed By: #### 3 1791 #### [facility] [address] [facility]. [address] Hematocrit (Bld) [Volume fraction] 21.1 % Low 39.0-50.0 [facility] Comment on above: Performed By: #### 3 1791 #### [facility] [address] [facility]. [address] Hemoglobin (Bld) [Mass/Vol] 7.1 g/dL Low 13.0-17.0 [facility] Comment on above: Performed By: #### 3 1791 #### [facility] [address] [facility] [place] [address], [facility] IMMATURE GRANS 0.5 % Normal 0.0-1.0 [facility] Comment on above: Performed By: #### 3 1791 #### [facility] [address] [place] [address], [facility] Lymphocytes (Bld) [#/Vol] 1.2 10*3/uL Normal 1.2-4.0 [facility] Comment on above: Performed By: #### 3 1791 #### [facility] [address] [facility] [place] [address], [facility] Lymphocytes/100 WBC (Bld) 29.6 % Normal 20.0-45.0 [facility] Comment on above: Performed By: #### 3 1791 #### [facility] [address] [facility] [place] [address], [facility] MCH (RBC) [Entitic mass] 31.7 pg Normal 27.0-33.0 [facility] Comment on above: Performed By: #### 3 1791 #### [facility] [address] [facility] [place] [address], [facility] MCHC (RBC) [Mass/Vol] 33.6 g/dL Normal 32.0-35.0 [facility] Comment on above: Performed By: #### 3 1791 #### [facility] [address] [place] [address], [facility] MCV (RBC) [Entitic vol] 94.2 fL Normal 82.0-98.0 [facility] Comment on above: Performed By: #### 3 1791 #### [facility] [address] [facility] [place] [address], [facility] Monocytes (Bld) [#/Vol] 0.4 10*3/uL Normal 0.1-1.0 [facility] Comment on above: Performed By: #### 3 1791 #### [facility] [address] [facility] [place] [address], [facility] MONOS 10.5 % Normal 5.0-12.0 [facility] Comment on above: Performed By: #### 3 1791 #### [facility] [address] [place] [id number], [facility] Neutrophils/100 WBC (Bld) 58.3 % Normal 40.0-72.0 [facility] Comment on above: Performed By: #### 3 1792 #### [facility] [address] [place] [address], [facility] Nucleated RBC/100 WBC (Bld) [Ratio] 0 % Normal 0-0 [facility] Comment on above: Performed By: #### 3 1792 #### [facility] [address] [place] [address], [place] PLAT CNT 160 10*3/uL Normal 150-400 [facility] Comment on above: Performed By: #### 3 1792 #### [facility] [address] [place] [address], [facility] RBC (Bld) [#/Vol] 2.24 10*6/uL Low 4.20-5.70 [facility] Comment on above: Performed By: #### 3 1792 #### [facility] [address] [place] [address], [facility] WBC (Bld) [#/Vol] 3.92 10*3/uL Low 4.00-10.60 [facility] Comment on above: Performed By: #### 3 1792 #### [facility] [address] [place] [address], [place] CBC COMPLETE BLOOD COUNTon 11-19-2019 Erythrocyte distribution width (RBC) [Ratio] 15.3 % High 11.5-15.0 [facility] Comment on above: Order Comment: No: D o not add to previous draw Performed By: #### 3 0478 #### [facility] [address] [place] [address], [place] Hematocrit (Bld) [Volume fraction] 23.3 % Low 39.0-50.0 [facility] Comment on above: Order Comment: No: D o not add to previous draw Performed By: #### 3 0478 #### [facility] [address] [place] [address], [place] Hemoglobin (Bld) [Mass/Vol] 7.8 g/dL Low 13.0-17.0 [facility] Comment on above: Order Comment: No: D o not add to previous draw Performed By: #### 3 0478 #### [facility] [address] [place] [address], [facility] MCH (RBC) [Entitic mass] 31.3 pg Normal 27.0-33.0 [facility] Comment on above: Order Comment: No: D o not add to previous draw Performed By: #### 3 0478 #### [facility] [address] [place] [address], [facility] MCHC (RBC) [Mass/Vol] 33.5 g/dL Normal 32.0-35.0 [facility] Comment on above: Order Comment: No: D o not add to previous draw Performed By: #### 3 0478 #### [facility] [address] [facility] [place] [address], [facility] MCV (RBC) [Entitic vol] 93.6 fL Normal 82.0-98.0 [facility] Comment on above: Order Comment: No: D o not add to previous draw Performed By: #### 3 0478 #### [facility] [address] [facility] [place] [address], [facility] Nucleated RBC/100 WBC (Bld) [Ratio] 0 % Normal 0-0 [facility] Comment on above: Order Comment: No: D o not add to previous draw Performed By: #### 3 0478 #### [facility] [address] [place] [address], [facility] PLAT CNT 174 10*3/uL Normal 150-400 [facility] Comment on above: Order Comment: No: D o not add to previous draw Performed By: #### 3 0478 #### [facility] [address] [place] [address], [facility] RBC (Bld) [#/Vol] 2.49 10*6/uL Low 4.20-5.70 [facility] Comment on above: Order Comment: No: D o not add to previous draw Performed By: #### 3 0478 #### [facility] [address] [place] [address], [facility] WBC (Bld) [#/Vol] 5.25 10*3/uL Normal 4.00-10.60 [facility] Comment on above: Order Comment: No: D o not add to previous draw Performed By: #### 3 0478 #### [facility] [address] [place] [address], [facility] COMP METABOLIC PANELon 09-19 Albumin [Mass/Vol] 3.1 g/dL Low 3.5-5.7 [facility] Comment on above: Order Comment: No: D o not add to previous draw Performed By: #### 5 0608 #### [facility] [address] [place] [address], [facility] ALKALINE PHOSPH 20 IU/L Low 34-104 [facility] Comment on above: Order Comment: No: D o not add to previous draw Performed By: #### 5 0608 #### [facility] [address] [place] [address], [facility] ALT [Catalytic activity/Vol] 7 U/L Normal 7-52 [facility] Comment on above: Order Comment: No: D o not add to previous draw Performed By: #### 5 0608 #### [facility] [address] [place] [address], [facility] AST [Catalytic activity/Vol] 10 U/L Low 13-39 [facility] Comment on above: Order Comment: No: D o not add to previous draw Performed By: #### 5 0608 #### [facility] [address] [place] [id number], [facility] Bilirubin [Mass/Vol] 0.4 mg/dL Normal 0.3-1.0 [facility] Comment on above: Order Comment: No: D o not add to previous draw Performed By: #### 5 0608 #### [facility] [address] [place] [address], [place] Calcium [Mass/Vol] 8.2 mg/dL Low 8.6-10.3 [facility] Comment on above: Order Comment: No: D o not add to previous draw Performed By: #### 5 0608 #### [facility] [address] [place] [address], [place] Chloride [Moles/Vol] 108 mmol/L High 98-107 [facility] Comment on above: Order Comment: No: D o not add to previous draw Performed By: #### 5 0608 #### [facility] [address] [place] [address], [place] CO2 [Moles/Vol] 20 mmol/L Low 21-31 [facility] Comment on above: Order Comment: No: D o not add to previous draw Performed By: #### 5 0608 #### [facility] [address] [place] [address], [place] Creatinine [Mass/Vol] 4.29 mg/dL High 0.70-1.30 [facility] Comment on above: Order Comment: No: D o not add to previous draw Performed By: #### 5 0608 #### [facility] [address] [place] [address], [place] GFR/1.73 sq M predicted among blacks MDRD (S/P/Bld) [Vol rate/Area] 16 ml/min/1.73sq m Abnormal >60 [facility] Comment on above: Order Comment: No: D o not add to previous draw Result Comment: Calc ulation may not be valid for patients over 70 years Performed By: #### 5 0608 #### [facility] [address] [place] [address], [place] GFR/1.73 sq M predicted among non-blacks MDRD (S/P/Bld) [Vol rate/Area] 14 ml/min/1.73sq m Abnormal >60 [facility] Comment on above: Order Comment: No: D o not add to previous draw Result Comment: Calc ulation may not be valid for patients over 70 years Performed By: #### 5 0608 #### [facility] [address] [place] [address], [place] Glucose [Mass/Vol] 93 mg/dL Normal 70-100 [facility] Comment on above: Order Comment: No: D o not add to previous draw Performed By: #### 5 0608 #### [facility] [address] [place] [address], [place] Potassium [Moles/Vol] 4.1 mmol/L Normal 3.5-5.1 [facility] Comment on above: Order Comment: No: D o not add to previous draw Performed By: #### 5 0608 #### [facility] [address] [place] [address], [place] Protein [Mass/Vol] 5.4 g/dL Low 6.0-8.3 [facility] Comment on above: Order Comment: No: D o not add to previous draw Performed By: #### 5 0608 #### [facility] [address] [place] [address], [place] Sodium [Moles/Vol] 134 mmol/L Low 136-145 [facility] Comment on above: Order Comment: No: D o not add to previous draw Performed By: #### 5 0608 #### [facility] [address] [place] [address], [place] Urea nitrogen [Mass/Vol] 39 mg/dL High 7-25 [facility] Comment on above: Order Comment: No: D o not add to previous draw Performed By: #### 5 0608 #### [facility] [address] [place] [address], [place] PROTHROMBIN TIMEon 0 INR Coag (PPP) [Relative time] 1.08 {INR} Normal 0.91-1.16 [facility] Comment on above: Order Comment: No: D [...] RANGE. CHEST 1995;108:[id number]. Performed By: #### 3 4553, [id number] #### [facility] [address] PT Coag (PPP) [Time] 14.0 s Normal 12.3-14.8 [facility] Comment on above: Order Comment: No: D o not add to previous draw Result Comment: ALL RESULTS MUST BE INTERPRETED WITH RESPECT TO BLOOD DRAWING ARTIFACT OR DILUTION ERROR OF ANTICOAGULANT AT THE TIME OF SAMPLING. Performed By: #### 3 3583, [id number] #### [facility] [email or web address] BASIC METABOLIC PANELon 11-1 Calcium [Mass/Vol] 8.0 mg/dL Low 8.6-10.3 [facility] Comment on above: Order Comment: No: D o not add to previous draw Performed By: #### 5 0608 #### [facility] [address] [place] [address], [place] Chloride [Moles/Vol] 109 mmol/L High 98-107 [facility] Comment on above: Order Comment: No: D o not add to previous draw Performed By: #### 5 0608 #### [facility] [address] [place] [address], [place] CO2 [Moles/Vol] 19 mmol/L Low 21-31 [facility] Comment on above: Order Comment: No: D o not add to previous draw Performed By: #### 5 0608 #### [facility] [address] [place] [address], [place] Creatinine [Mass/Vol] 4.82 mg/dL High 0.70-1.30 [facility] Comment on above: Order Comment: No: D o not add to previous draw Performed By: #### 5 0608 #### [facility] [address] [place] [address], [place] GFR/1.73 sq M predicted among blacks MDRD (S/P/Bld) [Vol rate/Area] 14 ml/min/1.73sq m Abnormal >60 [facility] Comment on above: Order Comment: No: D o not add to previous draw Result Comment: Calc ulation may not be valid for patients over 70 years Performed By: #### 5 0608 #### [facility] [address] [place] [address], [place] GFR/1.73 sq M predicted among non-blacks MDRD (S/P/Bld) [Vol rate/Area] 12 ml/min/1.73sq m Abnormal >60 [facility] Comment on above: Order Comment: No: D o not add to previous draw Result Comment: Calc ulation may not be valid for patients over 70 years Performed By: #### 5 0608 #### [facility] [address] [place] [address], [place] Glucose [Mass/Vol] 94 mg/dL Normal 70-100 [facility] Comment on above: Order Comment: No: D o not add to previous draw Performed By: #### 5 0608 #### [facility] [address] [place] [address], [facility] Potassium [Moles/Vol] 4.3 mmol/L Normal 3.5-5.1 [facility] Comment on above: Order Comment: No: D o not add to previous draw Performed By: #### 5 0608 #### [facility] [address] [place] [address], [facility] Sodium [Moles/Vol] 136 mmol/L Normal 136-145 [facility] Comment on above: Order Comment: No: D o not add to previous draw Performed By: #### 5 0608 #### [facility] [address] [place] [address], [facility] Urea nitrogen [Mass/Vol] 50 mg/dL High 7-25 [facility] Comment on above: Order Comment: No: D o not add to previous draw Performed By: #### 5 0608 #### [facility] [address] [place] [address], [facility] CBC COMPLETE BLOOD COUNTon 11-18-2019 Erythrocyte distribution width (RBC) [Ratio] 15.6 % High 11.5-15.0 [facility] Comment on above: Order Comment: No: D o not add to previous draw Performed By: #### 3 0478 #### [facility] [address] [place] [address], [facility] Hematocrit (Bld) [Volume fraction] 22.7 % Low 39.0-50.0 [facility] Comment on above: Order Comment: No: D o not add to previous draw Performed By: #### 3 0478 #### [facility] [address] [place] [address], [facility] Hemoglobin (Bld) [Mass/Vol] 7.5 g/dL Low 13.0-17.0 [facility] Comment on above: Order Comment: No: D o not add to previous draw Performed By: #### 3 0478 #### [facility] [address] MCH (RBC) [Entitic mass] 31.1 pg Normal 27.0-33.0 [facility] Comment on above: Order Comment: No: D o not add to previous draw Performed By: #### 3 0478 #### [facility] [address] [facility] [address] MCHC (RBC) [Mass/Vol] 33.0 g/dL Normal 32.0-35.0 [facility] Comment on above: Order Comment: No: D o not add to previous draw Performed By: #### 3 0478 #### [facility] [address] [facility] [address] MCV (RBC) [Entitic vol] 94.2 fL Normal 82.0-98.0 [facility] Comment on above: Order Comment: No: D o not add to previous draw Performed By: #### 3 0478 #### [facility] [address] Nucleated RBC/100 WBC (Bld) [Ratio] 0 % Normal 0-0 [facility] Comment on above: Order Comment: No: D o not add to previous draw Performed By: #### 3 0478 #### [facility] [address] PLAT CNT 160 10*3/uL Normal 150-400 [facility] Comment on above: Order Comment: No: D o not add to previous draw Performed By: #### 3 0478 #### [facility] [address] RBC (Bld) [#/Vol] 2.41 10*6/uL Low 4.20-5.70 [facility] Comment on above: Order Comment: No: D o not add to previous draw Performed By: #### 3 0478 #### [facility] [address] [facility] [address] WBC (Bld) [#/Vol] 5.35 10*3/uL Normal 4.00-10.60 [facility] Comment on above: Order Comment: No: D o not add to previous draw Performed By: #### 3 0478 #### [facility] [address] [facility] [address] *SARS-CoV-2 COVID-19on 09-17 [id number] Not Detected Normal Not Detected [facility] Comment on above: Order Comment: The A ptima SARS-CoV-2 assay is a nucleic acid amplification test intended for the qualitative detection of RNA from SARS-CoV-2 isolated and purified from nasopharyngeal ([employer]ITION [employer]ARD INST[employer]ER),oropharyngeal (OP), nasal swab, sputum, and bronchoalveolar lavage (BAL) specimens from patients with signs and symptoms of infection who are suspected of COVID-19. Results are for the identification of SARS-CoV-2 RNA. The SARS-CoV-2 RNA is generally detectable during the acute phase of infection. The Aptima SARS-CoV-2 Assay on the [employer]) and [employer] Fusion system is intended for use by laboratory personnel specifically instructed and trained in the operation of the [employer] and [employer] Fusion system. The Aptima SARS-CoV-2 assay is [...] information. Performed By: #### 3 1792 #### [facility] [address] [facility] [address] BASIC METABOLIC PANELon - Calcium [Mass/Vol] 7.9 mg/dL Low 8.6-10.3 [facility] Comment on above: Order Comment: No: D o not add to previous draw Performed By: #### 0 0071 ####[facility] [place] [address], [facility] Chloride [Moles/Vol] 107 mmol/L Normal 98-107 [facility] Comment on above: Order Comment: No: D o not add to previous draw Performed By: #### 0 0071 ####[facility] [place] [address], [place] CO2 [Moles/Vol] 19 mmol/L Low 21-31 [facility] Comment on above: Order Comment: No: D o not add to previous draw Performed By: #### 0 0071 ####[facility] [place] [address], [facility] Creatinine [Mass/Vol] 5.59 mg/dL High 0.70-1.30 [facility] Comment on above: Order Comment: No: D o not add to previous draw Performed By: #### 0 0071 ####[facility] [place] [address], [facility] GFR/1.73 sq M predicted among blacks MDRD (S/P/Bld) [Vol rate/Area] 12 ml/min/1.73sq m Abnormal >60 [facility] Comment on above: Order Comment: No: D o not add to previous draw Result Comment: Calc ulation may not be valid for patients over 70 years Performed By: #### 0 0071 ####[facility] [place] [address], [place] GFR/1.73 sq M predicted among non-blacks MDRD (S/P/Bld) [Vol rate/Area] 10 ml/min/1.73sq m Abnormal >60 [facility] Comment on above: Order Comment: No: D o not add to previous draw Result Comment: Calc ulation may not be valid for patients over 70 years Performed By: #### 0 0071 ####[facility] [place] [address], [facility] Glucose [Mass/Vol] 110 mg/dL High 70-100 [facility] Comment on above: Order Comment: No: D o not add to previous draw Performed By: #### 0 0071 ####[facility] [facility] [place] [place] [address], [facility] Potassium [Moles/Vol] 4.0 mmol/L Normal 3.5-5.1 [facility] Comment on above: Order Comment: No: D o not add to previous draw Performed By: #### 0 0071 ####[facility] Sodium [Moles/Vol] 134 mmol/L Low 136-145 [facility] Comment on above: Order Comment: No: D o not add to previous draw Performed By: #### 0 0071 ####[facility] [facility].[address] Urea nitrogen [Mass/Vol] 55 mg/dL High 7-25 [facility] Comment on above: Order Comment: No: D o not add to previous draw Performed By: #### 0 0071 ####[facility] CBC COMPLETE BLOOD COUNTon 11-17-2019 Erythrocyte distribution width (RBC) [Ratio] 15.8 % High 11.5-15.0 [facility] Comment on above: Order Comment: No: D o not add to previous draw Performed By: #### 1 0008 #### [facility] [address] [place] [address], [facility] Hematocrit (Bld) [Volume fraction] 21.1 % Low 39.0-50.0 [facility] Comment on above: Order Comment: No: D o not add to previous draw Performed By: #### 1 0008 #### [facility] [address] Hemoglobin (Bld) [Mass/Vol] 7.2 g/dL Low 13.0-17.0 [facility] Comment on above: Order Comment: No: D o not add to previous draw Performed By: #### 1 0008 #### [facility] [address] [place] [id number], [facility] MCH (RBC) [Entitic mass] 31.7 pg Normal 27.0-33.0 [facility] Comment on above: Order Comment: No: D o not add to previous draw Performed By: #### 1 0008 #### [facility] [address] [place] [address], [facility] MCHC (RBC) [Mass/Vol] 34.1 g/dL Normal 32.0-35.0 [facility] Comment on above: Order Comment: No: D o not add to previous draw Performed By: #### 1 0008 #### [facility] [address] [facility] [place] [address], [facility] MCV (RBC) [Entitic vol] 93.0 fL Normal 82.0-98.0 [facility] Comment on above: Order Comment: No: D o not add to previous draw Performed By: #### 1 0008 #### [facility] [address] [place] [address], [facility] Nucleated RBC/100 WBC (Bld) [Ratio] 0 % Normal 0-0 [facility] Comment on above: Order Comment: No: D o not add to previous draw Performed By: #### 1 0008 #### [facility] [address] [place] [address], [facility] PLAT CNT 148 10*3/uL Low 150-400 [facility] Comment on above: Order Comment: No: D o not add to previous draw Performed By: #### 1 0008 #### [facility] [address] [place] [address], [facility] RBC (Bld) [#/Vol] 2.27 10*6/uL Low 4.20-5.70 [facility] Comment on above: Order Comment: No: D o not add to previous draw Performed By: #### 1 0008 #### [facility] [address] [place] [address], [place] WBC (Bld) [#/Vol] 4.90 10*3/uL Normal 4.00-10.60 [facility] Comment on above: Order Comment: No: D o not add to previous draw Performed By: #### 1 0008 #### [facility] [address] [place] [address], [place] BASIC METABOLIC PANELon 11- Calcium [Mass/Vol] 7.9 mg/dL Low 8.6-10.3 [facility] Comment on above: Order Comment: No: D o not add to previous draw Performed By: #### 5 0608 #### [facility] [address] [place] [address], [place] Chloride [Moles/Vol] 107 mmol/L Normal 98-107 [facility] Comment on above: Order Comment: No: D o not add to previous draw Performed By: #### 5 0608 #### [facility] [address] [place] [address], [place] CO2 [Moles/Vol] 18 mmol/L Low 21-31 [facility] Comment on above: Order Comment: No: D o not add to previous draw Performed By: #### 5 0608 #### [facility] [address] [place] [address], [place] Creatinine [Mass/Vol] 5.65 mg/dL High 0.70-1.30 [facility] Comment on above: Order Comment: No: D o not add to previous draw Performed By: #### 5 0608 #### [facility] [address] [place] [address], [place] GFR/1.73 sq M predicted among blacks MDRD (S/P/Bld) [Vol rate/Area] 12 ml/min/1.73sq m Abnormal >60 [facility] Comment on above: Order Comment: No: D o not add to previous draw Result Comment: Calc ulation may not be valid for patients over 70 years Performed By: #### 5 0608 #### [facility] [address] [place] [address], [place] GFR/1.73 sq M predicted among non-blacks MDRD (S/P/Bld) [Vol rate/Area] 10 ml/min/1.73sq m Abnormal >60 [facility] Comment on above: Order Comment: No: D o not add to previous draw Result Comment: Calc ulation may not be valid for patients over 70 years Performed By: #### 5 0608 #### [facility] [address] [place] [address], [place] Glucose [Mass/Vol] 108 mg/dL High 70-100 [facility] Comment on above: Order Comment: No: D o not add to previous draw Performed By: #### 5 0608 #### [facility] [address] [place] [address], [place] Potassium [Moles/Vol] 3.7 mmol/L Normal 3.5-5.1 [facility] Comment on above: Order Comment: No: D o not add to previous draw Performed By: #### 5 0608 #### [facility] [address] [place] [address], [place] Sodium [Moles/Vol] 135 mmol/L Low 136-145 [facility] Comment on above: Order Comment: No: D o not add to previous draw Performed By: #### 5 0608 #### [facility] [address] [place] [address], [place] Urea nitrogen [Mass/Vol] 56 mg/dL High 7-25 [facility] Comment on above: Order Comment: No: D o not add to previous draw Performed By: #### 5 0608 #### [facility] [address] CBC COMPLETE BLOOD COUNTon 11-16-2019 Erythrocyte distribution width (RBC) [Ratio] 16.0 % High 11.5-15.0 [facility] Comment on above: Order Comment: No: D o not add to previous draw Performed By: #### 1 0008 #### [facility] [address] [place] [address], [facility] Hematocrit (Bld) [Volume fraction] 23.3 % Low 39.0-50.0 [facility] Comment on above: Order Comment: No: D o not add to previous draw Performed By: #### 1 0008 #### [facility] [address] Hemoglobin (Bld) [Mass/Vol] 7.8 g/dL Low 13.0-17.0 [facility] Comment on above: Order Comment: No: D o not add to previous draw Performed By: #### 1 0008 #### [facility] [address] [facility] [place] [address], [facility] MCH (RBC) [Entitic mass] 31.2 pg Normal 27.0-33.0 [facility] Comment on above: Order Comment: No: D o not add to previous draw Performed By: #### 1 0008 #### [facility] [address] [facility] [place] [address], [facility] MCHC (RBC) [Mass/Vol] 33.5 g/dL Normal 32.0-35.0 [facility] Comment on above: Order Comment: No: D o not add to previous draw Performed By: #### 1 0008 #### [facility] [address] [place] [address], [facility] MCV (RBC) [Entitic vol] 93.2 fL Normal 82.0-98.0 [facility] Comment on above: Order Comment: No: D o not add to previous draw Performed By: #### 1 0008 #### [facility] [address] [place] [address], [facility] Nucleated RBC/100 WBC (Bld) [Ratio] 0 % Normal 0-0 [facility] Comment on above: Order Comment: No: D o not add to previous draw Performed By: #### 1 0008 #### [facility] [address] [place] [address], [facility] PLAT CNT 154 10*3/uL Normal 150-400 [facility] Comment on above: Order Comment: No: D o not add to previous draw Performed By: #### 1 0008 #### [facility] [address] [place] [address], [facility] RBC (Bld) [#/Vol] 2.50 10*6/uL Low 4.20-5.70 [facility] Comment on above: Order Comment: No: D o not add to previous draw Performed By: #### 1 0008 #### [facility] [address] [place] [address], [facility] WBC (Bld) [#/Vol] 5.13 10*3/uL Normal 4.00-10.60 [facility] Comment on above: Order Comment: No: D o not add to previous draw Performed By: #### 1 0008 #### [facility] [address] [facility] [place] [address], [facility] BASIC METABOLIC PANELon 11-1 Calcium [Mass/Vol] 8.0 mg/dL Low 8.6-10.3 [facility] Comment on above: Order Comment: No: D o not add to previous draw Performed By: #### 5 [id number] #### [facility] [address] [place] [address], [facility] Chloride [Moles/Vol] 106 mmol/L Normal 98-107 [facility] Comment on above: Order Comment: No: D o not add to previous draw Performed By: #### 5 6101 #### [facility] [address] [place] [address], [place] CO2 [Moles/Vol] 20 mmol/L Low 21-31 [facility] Comment on above: Order Comment: No: D o not add to previous draw Performed By: #### 5 6101 #### [facility] [address] [place] [address], [place] Creatinine [Mass/Vol] 5.90 mg/dL High 0.70-1.30 [facility] Comment on above: Order Comment: No: D o not add to previous draw Performed By: #### 5 6101 #### [facility] [address] [place] [address], [place] GFR/1.73 sq M predicted among blacks MDRD (S/P/Bld) [Vol rate/Area] 11 ml/min/1.73sq m Abnormal >60 [facility] Comment on above: Order Comment: No: D o not add to previous draw Result Comment: Calc ulation may not be valid for patients over 70 years Performed By: #### 5 [id number] #### [facility] [address] [place] [address], [place] GFR/1.73 sq M predicted among non-blacks MDRD (S/P/Bld) [Vol rate/Area] 9 ml/min/1.73sq m Abnormal >60 [facility] Comment on above: Order Comment: No: D o not add to previous draw Result Comment: Calc ulation may not be valid for patients over 70 years Performed By: #### 5 [id number] #### [facility] [address] [place] [address], [place] Glucose [Mass/Vol] 97 mg/dL Normal 70-100 [facility] Comment on above: Order Comment: No: D o not add to previous draw Performed By: #### 5 6101 #### [facility] [address] [place] [address], [place] Potassium [Moles/Vol] 3.6 mmol/L Normal 3.5-5.1 [facility] Comment on above: Order Comment: No: D o not add to previous draw Performed By: #### 5 6101 #### [facility] [address] [place] [address], [facility] Sodium [Moles/Vol] 135 mmol/L Low 136-145 [facility] Comment on above: Order Comment: No: D o not add to previous draw Performed By: #### 5 6101 #### [facility] [address] [place] [id number], [facility] Urea nitrogen [Mass/Vol] 54 mg/dL High 7-25 [facility] Comment on above: Order Comment: No: D o not add to previous draw Performed By: #### 5 6101 #### [facility] [address] [place] [address], [facility] CBC COMPLETE BLOOD COUNTon 11-15-2019 Erythrocyte distribution width (RBC) [Ratio] 16.4 % High 11.5-15.0 [facility] Comment on above: Order Comment: No: D o not add to previous draw Performed By: #### 5 0608 #### [facility] [address] [place] [id number], [facility] Hematocrit (Bld) [Volume fraction] 22.6 % Low 39.0-50.0 [facility] Comment on above: Order Comment: No: D o not add to previous draw Performed By: #### 5 0608 #### [facility] [address] [place] [address], [facility] Hemoglobin (Bld) [Mass/Vol] 7.5 g/dL Low 13.0-17.0 [facility] Comment on above: Order Comment: No: D o not add to previous draw Performed By: #### 5 0608 #### [facility] [address] [place] [id number], [facility] MCH (RBC) [Entitic mass] 30.9 pg Normal 27.0-33.0 [facility] Comment on above: Order Comment: No: D o not add to previous draw Performed By: #### 5 0608 #### [facility] [address] [place] [address], [facility] MCHC (RBC) [Mass/Vol] 33.2 g/dL Normal 32.0-35.0 [facility] Comment on above: Order Comment: No: D o not add to previous draw Performed By: #### 5 0608 #### [facility] [address] [place] [id number], [facility] MCV (RBC) [Entitic vol] 93.0 fL Normal 82.0-98.0 [facility] Comment on above: Order Comment: No: D o not add to previous draw Performed By: #### 5 0608 #### [facility] [address] [facility] [place] [address], [facility] Nucleated RBC/100 WBC (Bld) [Ratio] 0 % Normal 0-0 [facility] Comment on above: Order Comment: No: D o not add to previous draw Performed By: #### 5 0608 #### [facility] [address] [place] [address], [facility] PLAT CNT 154 10*3/uL Normal 150-400 [facility] Comment on above: Order Comment: No: D o not add to previous draw Performed By: #### 5 0608 #### [facility] [address] [facility] [place] [id number], [facility] RBC (Bld) [#/Vol] 2.43 10*6/uL Low 4.20-5.70 [facility] Comment on above: Order Comment: No: D o not add to previous draw Performed By: #### 5 0608 #### [facility] [address] [place] [id number], [facility] WBC (Bld) [#/Vol] 5.11 10*3/uL Normal 4.00-10.60 [facility] Comment on above: Order Comment: No: D o not add to previous draw Performed By: #### 5 0608 #### [facility] [address] [facility]. [address] *SARS-CoV-2 COVID-19on 09-14 [id number] Not Detected Normal Not Detected [facility] Comment on above: Order Comment: The A ptima SARS-CoV-2 assay is a nucleic acid amplification testintended for the qualitative detection of RNA from SARS-CoV-2 isolatedand purified from nasopharyngeal (COMPOSITION WEATHERBOARD INSTALLER),oropharyngeal (OP), nasal swab,sputum, and bronchoalveolar lavage (BAL) specimens from patients withsigns and symptoms of infection who are suspected of COVID-19.Results are for the identification of SARS-CoV-2 RNA. The SARS-CoV-2 RNAis generally detectable during the acute phase of infection.The Aptima SARS-CoV-2 Assay on the Montrose and Mont[employer] Fusion system isintended for use by laboratory personnel specifically instructed andtrained in the operation of the Montrose and Montrose Fusion system. TheAptima SARS-CoV-2 assay is only [...] information. Performed By: #### 1 0008 #### [facility] [address] [facility] [place] [address], [facility] BASIC METABOLIC PANELon 09-03 Calcium [Mass/Vol] 8.2 mg/dL Low 8.6-10.3 [facility] Comment on above: Order Comment: No: D o not add to previous draw Performed By: #### 5 6101 #### [facility] [address] [place] [address], [place] Chloride [Moles/Vol] 107 mmol/L Normal 98-107 [facility] Comment on above: Order Comment: No: D o not add to previous draw Performed By: #### 5 6101 #### [facility] [address] [place] [address], [place] CO2 [Moles/Vol] 22 mmol/L Normal 21-31 [facility] Comment on above: Order Comment: No: D o not add to previous draw Performed By: #### 5 6101 #### [facility] [address] [place] [address], [place] Creatinine [Mass/Vol] 6.45 mg/dL High 0.70-1.30 [facility] Comment on above: Order Comment: No: D o not add to previous draw Performed By: #### 5 6101 #### [facility] [address] [place] [address], [place] GFR/1.73 sq M predicted among blacks MDRD (S/P/Bld) [Vol rate/Area] 10 ml/min/1.73sq m Abnormal >60 [facility] Comment on above: Order Comment: No: D o not add to previous draw Result Comment: Calc ulation may not be valid for patients over 70 years Performed By: #### 5 6101 #### [facility] [address] [place] [address], [place] GFR/1.73 sq M predicted among non-blacks MDRD (S/P/Bld) [Vol rate/Area] 8 ml/min/1.73sq m Abnormal >60 [facility] Comment on above: Order Comment: No: D o not add to previous draw Result Comment: Calc ulation may not be valid for patients over 70 years Performed By: #### 5 [id number] #### [facility] [address] [place] [address], [place] Glucose [Mass/Vol] 99 mg/dL Normal 70-100 [facility] Comment on above: Order Comment: No: D o not add to previous draw Performed By: #### 5 6101 #### [facility] [address] [place] [address], [facility] Potassium [Moles/Vol] 3.8 mmol/L Normal 3.5-5.1 [facility] Comment on above: Order Comment: No: D o not add to previous draw Performed By: #### 5 6101 #### [facility] [address] [place] [address], [facility] Sodium [Moles/Vol] 138 mmol/L Normal 136-145 [facility] Comment on above: Order Comment: No: D o not add to previous draw Performed By: #### 5 6101 #### [facility] [address] [place] [address], [facility] Urea nitrogen [Mass/Vol] 66 mg/dL High 7-25 [facility] Comment on above: Order Comment: No: D o not add to previous draw Performed By: #### 5 6101 #### [facility] [address] CBC COMPLETE BLOOD COUNTon 11-14-2019 Erythrocyte distribution width (RBC) [Ratio] 15.8 % High 11.5-15.0 [facility] Comment on above: Order Comment: The A ptima SARS-CoV-2 assay is a nucleic acid amplification test intended for the qualitative detection of RNA from SARS-CoV-2 isolated and purified from nasopharyngeal (COMPOSITION WEATHERBOARD INSTALLER),oropharyngeal (OP), nasal swab, sputum, and bronchoalveolar lavage (BAL) specimens from patients with signs and symptoms of infection who are suspected of COVID-19. Results are for the identification of SARS-CoV-2 RNA. The SARS-CoV-2 RNA is generally detectable during the acute phase of infection. The Aptima SARS-CoV-2 Assay on the Montrose and Montrose Fusion system is intended for use by laboratory personnel specifically instructed and trained in the operation of the Montrose and Montrose Fusion system. The Aptima SARS-CoV-2 assay is [...] information. Performed By: #### 3 1792 #### [facility] [address] [place] [address], [facility] Hematocrit (Bld) [Volume fraction] 21.0 % Low 39.0-50.0 [facility] Comment on above: Order Comment: The A ptima SARS-CoV-2 assay is a nucleic acid amplification test intended for the qualitative detection of RNA from SARS-CoV-2 isolated and purified from nasopharyngeal (COMPOSITION WEATHERBOARD INSTALLER),oropharyngeal (OP), nasal swab, sputum, and bronchoalveolar lavage (BAL) specimens from patients with signs and symptoms of infection who are suspected of COVID-19. Results are for the identification of SARS-CoV-2 RNA. The SARS-CoV-2 RNA is generally detectable during the acute phase of infection. The Aptima SARS-CoV-2 Assay on the [employer](BHI) and Montrose Fusion system is intended for use by laboratory personnel specifically instructed and trained in the operation of the Montrose and Montrose Fusion system. The Aptima SARS-CoV-2 assay is [...] information. Performed By: #### 3 1792 #### [facility] [address] [place] [address], [facility] Hemoglobin (Bld) [Mass/Vol] 6.8 g/dL Low 13.0-17.0 [facility] Comment on above: Order Comment: The A ptima SARS-CoV-2 assay is a nucleic acid amplification test intended for the qualitative detection of RNA from SARS-CoV-2 isolated and purified from nasopharyngeal (COMPOSITION WEATHERBOARD INSTALLER),oropharyngeal (OP), nasal swab, sputum, and bronchoalveolar lavage (BAL) specimens from patients with signs and symptoms of infection who are suspected of COVID-19. Results are for the identification of SARS-CoV-2 RNA. The SARS-CoV-2 RNA is generally detectable during the acute phase of infection. The Aptima SARS-CoV-2 Assay on the [employer] and Montrose Fusion system is intended for use by laboratory personnel specifically instructed and trained in the operation of the Montrose and Montrose Fusion system. The Aptima SARS-CoV-2 assay is [...] information. Performed By: #### 3 1792 #### [facility] [address] MCH (RBC) [Entitic mass] 30.9 pg Normal 27.0-33.0 [facility] Comment on above: Order Comment: The A ptima SARS-CoV-2 assay is a nucleic acid amplification test intended for the qualitative detection of RNA from SARS-CoV-2 isolated and purified from nasopharyngeal (COMPOSITION WEATHERBOARD INSTALLER),oropharyngeal (OP), nasal swab, sputum, and bronchoalveolar lavage (BAL) specimens from patients with signs and symptoms of infection who are suspected of COVID-19. Results are for the identification of SARS-CoV-2 RNA. The SARS-CoV-2 RNA is generally detectable during the acute phase of infection. The Aptima SARS-CoV-2 Assay on the [employer] and Montrose Fusion system is intended for use by laboratory personnel specifically instructed and trained in the operation of the Montrose and Montrose Fusion system. The Aptima SARS-CoV-2 assay is [...] information. Performed By: #### 3 1792 #### [facility] [address] [place] [address], [facility] MCHC (RBC) [Mass/Vol] 32.4 g/dL Normal 32.0-35.0 [facility] Comment on above: Order Comment: The A ptima SARS-CoV-2 assay is a nucleic acid amplification test intended for the qualitative detection of RNA from SARS-CoV-2 isolated and purified from nasopharyngeal (COMPOSITION WEATHERBOARD INSTALLER),oropharyngeal (OP), nasal swab, sputum, and bronchoalveolar lavage (BAL) specimens from patients with signs and symptoms of infection who are suspected of COVID-19. Results are for the identification of SARS-CoV-2 RNA. The SARS-CoV-2 RNA is generally detectable during the acute phase of infection. The Aptima SARS-CoV-2 Assay on the [employer] and Mont[employer] Fusion system is intended for use by laboratory personnel specifically instructed and trained in the operation of the Montrose and Montrose Fusion system. The Aptima SARS-CoV-2 assay is [...] information. Performed By: #### 3 1792 #### [facility] [address] [place] [address], [facility] MCV (RBC) [Entitic vol] 95.5 fL Normal 82.0-98.0 [facility] Comment on above: Order Comment: The A ptima SARS-CoV-2 assay is a nucleic acid amplification test intended for the qualitative detection of RNA from SARS-CoV-2 isolated and purified from nasopharyngeal (COMPOSITION WEATHERBOARD INSTALLER),oropharyngeal (OP), nasal swab, sputum, and bronchoalveolar lavage (BAL) specimens from patients with signs and symptoms of infection who are suspected of COVID-19. Results are for the identification of SARS-CoV-2 RNA. The SARS-CoV-2 RNA is generally detectable during the acute phase of infection. The Aptima SARS-CoV-2 Assay on the Montrose and Montrose Fusion system is intended for use by laboratory personnel specifically instructed and trained in the operation of the Montrose and Montrose Fusion system. The Aptima SARS-CoV-2 assay is [...] information. Performed By: #### 3 1792 #### [address] Nucleated RBC/100 WBC (Bld) [Ratio] 0 % Normal 0-0 [facility] Comment on above: Order Comment: The A ptima SARS-CoV-2 assay is a nucleic acid amplification test intended for the qualitative detection of RNA from SARS-CoV-2 isolated and purified from nasopharyngeal (COMPOSITION WEATHERBOARD INSTALLER),oropharyngeal (OP), nasal swab, sputum, and bronchoalveolar lavage (BAL) specimens from patients with signs and symptoms of infection who are suspected of COVID-19. Results are for the identification of SARS-CoV-2 RNA. The SARS-CoV-2 RNA is generally detectable during the acute phase of infection. The Aptima SARS-CoV-2 Assay on the Montrose and Montrose Fusion system is intended for use by laboratory personnel specifically instructed and trained in the operation of the Montrose and Montrose Fusion system. The Aptima SARS-CoV-2 assay is [...] information. Performed By: #### 3 1792 #### [facility] [address] [facility]. [address] PLAT CNT 164 10*3/uL Normal 150-400 [facility] Comment on above: Order Comment: The A ptima SARS-CoV-2 assay is a nucleic acid amplification test intended for the qualitative detection of RNA from SARS-CoV-2 isolated and purified from nasopharyngeal (COMPOSITION WEATHERBOARD INSTALLER),oropharyngeal (OP), nasal swab, sputum, and bronchoalveolar lavage (BAL) specimens from patients with signs and symptoms of infection who are suspected of COVID-19. Results are for the identification of SARS-CoV-2 RNA. The SARS-CoV-2 RNA is generally detectable during the acute phase of infection. The Aptima SARS-CoV-2 Assay on the [employer](BHI) and [employer](BHI) Fusion system is intended for use by laboratory personnel specifically instructed and trained in the operation of the Montrose and Montrose Fusion system. The Aptima SARS-CoV-2 assay is [...] information. Performed By: #### 3 1792 #### [facility] [address] [place] [address], [facility] RBC (Bld) [#/Vol] 2.20 10*6/uL Low 4.20-5.70 [facility] Comment on above: Order Comment: The A ptima SARS-CoV-2 assay is a nucleic acid amplification test intended for the qualitative detection of RNA from SARS-CoV-2 isolated and purified from nasopharyngeal (COMPOSITION WEATHERBOARD INSTALLER),oropharyngeal (OP), nasal swab, sputum, and bronchoalveolar lavage (BAL) specimens from patients with signs and symptoms of infection who are suspected of COVID-19. Results are for the identification of SARS-CoV-2 RNA. The SARS-CoV-2 RNA is generally detectable during the acute phase of infection. The Aptima SARS-CoV-2 Assay on the [employer] and Montrose Fusion system is intended for use by laboratory personnel specifically instructed and trained in the operation of the Montrose and [employer] Fusion system. The Aptima SARS-CoV-2 assay is [...] information. Performed By: #### 3 1792 #### [facility] [address] [place] [address], [facility] WBC (Bld) [#/Vol] 5.14 10*3/uL Normal 4.00-10.60 [facility] Comment on above: Order Comment: The A ptima SARS-CoV-2 assay is a nucleic acid amplification test intended for the qualitative detection of RNA from SARS-CoV-2 isolated and purified from nasopharyngeal (COMPOSITION WEATHERBOARD INSTALLER),oropharyngeal (OP), nasal swab, sputum, and bronchoalveolar lavage (BAL) specimens from patients with signs and symptoms of infection who are suspected of COVID-19. Results are for the identification of SARS-CoV-2 RNA. The SARS-CoV-2 RNA is generally detectable during the acute phase of infection. The Aptima SARS-CoV-2 Assay on the [employer] and Montrose Fusion system is intended for use by laboratory personnel specifically instructed and trained in the operation of the Montrose and Montrose Fusion system. The Aptima SARS-CoV-2 assay is [...] information. Performed By: #### 3 1792 #### [facility] [address] [facility]. [address] HEMATOCRITon 09-14-2020 Hematocrit (Bld) [Volume fraction] 23.9 % Low 39.0-50.0 [facility] Comment on above: Order Comment: The A ptima SARS-CoV-2 assay is a nucleic acid amplification test intended for the qualitative detection of RNA from SARS-CoV-2 isolated and purified from nasopharyngeal (COMPOSITION WEATHERBOARD INSTALLER),oropharyngeal (OP), nasal swab, sputum, and bronchoalveolar lavage (BAL) specimens from patients with signs and symptoms of infection who are suspected of COVID-19. Results are for the identification of SARS-CoV-2 RNA. The SARS-CoV-2 RNA is generally detectable during the acute phase of infection. The Aptima SARS-CoV-2 Assay on the [employer](BHI) and [employer](BHI) Fusion system is intended for use by laboratory personnel specifically instructed and trained in the operation of the [employer] and [employer](BHI) Fusion system. The Aptima SARS-CoV-2 assay is [...] information. Performed By: #### 3 1792 #### [facility] [address] [facility]. [address] HEMOGLOBINon 09-14-2020 Hemoglobin (Bld) [Mass/Vol] 8.0 g/dL Low 13.0-17.0 [facility] Comment on above: Order Comment: The A ptima SARS-CoV-2 assay is a nucleic acid amplification test intended for the qualitative detection of RNA from SARS-CoV-2 isolated and purified from nasopharyngeal (COMPOSITION WEATHERBOARD INSTALLER),oropharyngeal (OP), nasal swab, sputum, and bronchoalveolar lavage (BAL) specimens from patients with signs and symptoms of infection who are suspected of COVID-19. Results are for the identification of SARS-CoV-2 RNA. The SARS-CoV-2 RNA is generally detectable during the acute phase of infection. The Aptima SARS-CoV-2 Assay on the Montrose and Montrose Fusion system is intended for use by laboratory personnel specifically instructed and trained in the operation of the Montrose and Montrose Fusion system. The Aptima SARS-CoV-2 assay is [...] information. Performed By: #### 3 1792 #### [facility] [address] [place] [address], [facility] RBC'S 1 UNITon 09-14-2020 CROSSMATCH INTERP 1 COMP Normal [facility] Comment on above: Order Comment: [place] nephrosis, please assess for hydronephrosis resolution Performed By: #### 8 [id number] ####[facility] [place] [address], [facility] PRODUCT CODE 1 [id number] Normal [facility] Comment on above: Order Comment: [place] nephrosis, please assess for hydronephrosis resolution Performed By: #### 8 6001 ####[facility] [place] [address], [facility] PRODUCT STATUS 1 PT Normal [facility] Comment on above: Order Comment: [place] nephrosis, please assess for hydronephrosis resolution Result Comment: Resu lt changed by IF on 09/14/2020 12:52. The previous value was XM. Result changed by IF on 09/15/2020 00:30. The previous value was IS. Performed By: #### 8 [id number] ####[facility] [place] [address], [facility] UNIT ABO 1 A Normal [facility] Comment on above: Order Comment: [place] nephrosis, please assess for hydronephrosis resolution Performed By: #### 8 6001 ####[facility] [place] [address], [facility] ID 1 [id number] Normal [facility] Comment on above: Order Comment: [place] nephrosis, please assess for hydronephrosis resolution Performed By: #### 8 6001 ####[facility] [place] [address], [facility] RH 1 Positive Normal [facility] Comment on above: Order Comment: [place] nephrosis, please assess for hydronephrosis resolution Performed By: #### 8 6001 ####[facility] [place] [address], [facility] TYPE AND SCREENon 09-14-2020 ABO INTERPRETATION A Normal [facility] Comment on above: Performed By: #### 3 1509, [id number] #### [facility] [address] [place] [address], [facility] RH INTERPRETATION Positive Normal [facility] Comment on above: Performed By: #### 3 1509, 90083 #### [facility] [address] [place] [address], [facility] US RENALon 09-14-2020 US RENAL [facility] Department of Radiology [address] [place] [id number] ===== Patient Name: CHANO GÓMEZ : 1945 Sex: M Age: Race: White Pt. Location: [id number] Patient Status: I Ordered Date: 09/14/2020 7:30:00 AM Completed Date: 09/14/2020 11:22 AM Requesting Provider: ARTURO CARRION Attending Provider: ROHITH BARAHONA Report Copy To: Signs & Symptoms: Urinary [...] None Other: None URINARY BLADDER: Decompressed with Diaz, demonstrating apparent wall thickening. IMPRESSION: 1. Persistent, though slightly improved, moderate left and mild right hydronephrosis. 2. Persistent nonspecific bladder wall thickening, decompressed with Diaz catheter. Electronically signed: NA MCCALLUM. Transcribed by: [email or web address], User Resident: Electronically Signed by: NA MCCALLUM @ 09/14/2020 12:52 PM Normal [facility] Comment on above: Order Comment: [place] nephrosis, please assess for hydronephrosis resolution BASIC METABOLIC PANELon 09-03 Calcium [Mass/Vol] 8.5 mg/dL Low 8.6-10.3 [facility] Comment on above: Order Comment: No: D o not add to previous draw Performed By: #### 0 0071 ####[facility] [place] [address], [facility] Chloride [Moles/Vol] 103 mmol/L Normal 98-107 [facility] Comment on above: Order Comment: No: D o not add to previous draw Performed By: #### 0 0071 ####[facility] [place] [address], [facility] CO2 [Moles/Vol] 24 mmol/L Normal 21-31 [facility] Comment on above: Order Comment: No: D o not add to previous draw Performed By: #### 0 0071 ####[facility] [facility] [place] [address], [facility] Creatinine [Mass/Vol] 7.51 mg/dL High 0.70-1.30 [facility] Comment on above: Order Comment: No: D o not add to previous draw Performed By: #### 0 0071 ####[facility] [place] [address], [facility] GFR/1.73 sq M predicted among blacks MDRD (S/P/Bld) [Vol rate/Area] 9 ml/min/1.73sq m Abnormal >60 [facility] Comment on above: Order Comment: No: D o not add to previous draw Result Comment: Calc ulation may not be valid for patients over 70 years Performed By: #### 0 0071 ####[facility] [place] [address], [facility] GFR/1.73 sq M predicted among non-blacks MDRD (S/P/Bld) [Vol rate/Area] 7 ml/min/1.73sq m Abnormal >60 [facility] Comment on above: Order Comment: No: D o not add to previous draw Result Comment: Calc ulation may not be valid for patients over 70 years Performed By: #### 0 0071 ####[facility] [place] [address], [facility] Glucose [Mass/Vol] 102 mg/dL High 70-100 [facility] Comment on above: Order Comment: No: D o not add to previous draw Performed By: #### 0 0071 ####[facility] Potassium [Moles/Vol] 3.4 mmol/L Low 3.5-5.1 [facility] Comment on above: Order Comment: No: D o not add to previous draw Performed By: #### 0 0071 ####[facility] Sodium [Moles/Vol] 137 mmol/L Normal 136-145 [facility] Comment on above: Order Comment: No: D o not add to previous draw Performed By: #### 0 0071 ####[facility] Urea nitrogen [Mass/Vol] 74 mg/dL High 7-25 [facility] Comment on above: Order Comment: No: D o not add to previous draw Performed By: #### 0 0071 ####[facility] BMPon 09-13-2020 Urea nitrogen [Mass/Vol] 93 mg/dL Abnormal 5-21 [facility] Comment on above: Result Comment: Crit ical Result [id number] Called to JONATHAN CASE AT ER by VICENTA DOWNS And Read Back For Confirmation at: 09/10/2020 10:55:01 Results Verified By Repeat Analysis. Performed By: #### 2 [id number], [id number], [id number], [id number], [id number], [id number], [id number], [id number], [id number], [id number], [id number], [id number], [id number], [id number] ####[facility] [id number] [place] [address] CBC COMPLETE BLOOD COUNTon 1 11-13-2019 Erythrocyte distribution width (RBC) [Ratio] 15.9 % High 11.5-15.0 [facility] Comment on above: Order Comment: No: D o not add to previous draw Performed By: #### 1 0008 #### [facility] [address] [place] [address], [facility] Hematocrit (Bld) [Volume fraction] 21.6 % Low 39.0-50.0 [facility] Comment on above: Order Comment: No: D o not add to previous draw Performed By: #### 1 0008 #### [facility] [address] [place] [address], [facility] Hemoglobin (Bld) [Mass/Vol] 7.3 g/dL Low 13.0-17.0 [facility] Comment on above: Order Comment: No: D o not add to previous draw Performed By: #### 1 0008 #### [facility] [address] [facility] [place] [address], [facility] MCH (RBC) [Entitic mass] 31.6 pg Normal 27.0-33.0 [facility] Comment on above: Order Comment: No: D o not add to previous draw Performed By: #### 1 0008 #### [facility] [address] [place] [address], [facility] MCHC (RBC) [Mass/Vol] 33.8 g/dL Normal 32.0-35.0 [facility] Comment on above: Order Comment: No: D o not add to previous draw Performed By: #### 1 0008 #### [facility] [address] [facility] [place] [address], [facility] MCV (RBC) [Entitic vol] 93.5 fL Normal 82.0-98.0 [facility] Comment on above: Order Comment: No: D o not add to previous draw Performed By: #### 1 0008 #### [facility] [address] [facility] [place] [address], [facility] Nucleated RBC/100 WBC (Bld) [Ratio] 0 % Normal 0-0 [facility] Comment on above: Order Comment: No: D o not add to previous draw Performed By: #### 1 0008 #### [facility] [address] [place] [address], [facility] PLAT CNT 186 10*3/uL Normal 150-400 [facility] Comment on above: Order Comment: No: D o not add to previous draw Performed By: #### 1 0008 #### [facility] [address] [address], [facility] RBC (Bld) [#/Vol] 2.31 10*6/uL Low 4.20-5.70 [facility] Comment on above: Order Comment: No: D o not add to previous draw Performed By: #### 1 0008 #### [facility] [address] [place] [address], [facility] WBC (Bld) [#/Vol] 4.43 10*3/uL Normal 4.00-10.60 [facility] Comment on above: Order Comment: No: D o not add to previous draw Performed By: #### 1 0008 #### [facility] [address] *URINE CATH CULTUREon 2019 *URINE CATH CULTURE Clinical Report: (D) Specimen/Source: URINE/CATHETER DIAZ Collected: 09/12/2020 12:16 Status: Final Last Updated: 09/15/2020 09:31 CULT RES (Final) NO GROWTH 48 HOURS Normal [facility] Comment on above: Performed By: #### 3 0478 #### [facility] [address] [facility]. [address] BASIC METABOLIC PANELon 11-1 Calcium [Mass/Vol] 8.5 mg/dL Low 8.6-10.3 [facility] Comment on above: Order Comment: No: D o not add to previous draw Performed By: #### 5 6101 #### [facility] [address] [place] [address], [facility] Chloride [Moles/Vol] 103 mmol/L Normal 98-107 [facility] Comment on above: Order Comment: No: D o not add to previous draw Performed By: #### 5 6101 #### [facility] [address] [place] [address], [place] CO2 [Moles/Vol] 25 mmol/L Normal 21-31 [facility] Comment on above: Order Comment: No: D o not add to previous draw Performed By: #### 5 6101 #### [facility] [address] [place] [address], [place] Creatinine [Mass/Vol] 8.48 mg/dL High 0.70-1.30 [facility] Comment on above: Order Comment: No: D o not add to previous draw Performed By: #### 5 6101 #### [facility] [address] [place] [address], [facility] GFR/1.73 sq M predicted among blacks MDRD (S/P/Bld) [Vol rate/Area] 7 ml/min/1.73sq m Abnormal >60 [facility] Comment on above: Order Comment: No: D o not add to previous draw Result Comment: Calc ulation may not be valid for patients over 70 years Performed By: #### 5 6101 #### [facility] [address] [place] [address], [place] GFR/1.73 sq M predicted among non-blacks MDRD (S/P/Bld) [Vol rate/Area] 6 ml/min/1.73sq m Abnormal >60 [facility] Comment on above: Order Comment: No: D o not add to previous draw Result Comment: Calc ulation may not be valid for patients over 70 years Performed By: #### 5 6101 #### [facility] [address] [place] [address], [place] Glucose [Mass/Vol] 103 mg/dL High 70-100 [facility] Comment on above: Order Comment: No: D o not add to previous draw Performed By: #### 5 6101 #### [facility] [address] [place] [address], [facility] Potassium [Moles/Vol] 3.5 mmol/L Normal 3.5-5.1 [facility] Comment on above: Order Comment: No: D o not add to previous draw Performed By: #### 5 6101 #### [facility] [address] [place] [address], [place] Sodium [Moles/Vol] 141 mmol/L Normal 136-145 [facility] Comment on above: Order Comment: No: D o not add to previous draw Performed By: #### 5 6101 #### [facility] [address] [place] [address], [facility] Urea nitrogen [Mass/Vol] 85 mg/dL High 7-25 [facility] Comment on above: Order Comment: No: D o not add to previous draw Performed By: #### 5 6101 #### [facility] [address] [place] [address], [facility] CBC COMPLETE BLOOD COUNTon 11-12-2019 Erythrocyte distribution width (RBC) [Ratio] 15.8 % High 11.5-15.0 [facility] Comment on above: Order Comment: No: D o not add to previous draw Performed By: #### 3 0478 #### [facility] [address] [place] [address], [place] Hematocrit (Bld) [Volume fraction] 23.6 % Low 39.0-50.0 [facility] Comment on above: Order Comment: No: D o not add to previous draw Performed By: #### 3 0478 #### [facility] [address] [place] [address], [place] Hemoglobin (Bld) [Mass/Vol] 7.8 g/dL Low 13.0-17.0 [facility] Comment on above: Order Comment: No: D o not add to previous draw Performed By: #### 3 0478 #### [facility] [address] [place] [address], [place] MCH (RBC) [Entitic mass] 31.3 pg Normal 27.0-33.0 [facility] Comment on above: Order Comment: No: D o not add to previous draw Performed By: #### 3 0478 #### [facility] [address] [place] [id number], [facility] MCHC (RBC) [Mass/Vol] 33.1 g/dL Normal 32.0-35.0 [facility] Comment on above: Order Comment: No: D o not add to previous draw Performed By: #### 3 0478 #### [facility] [address] [place] [id number], [facility] MCV (RBC) [Entitic vol] 94.8 fL Normal 82.0-98.0 [facility] Comment on above: Order Comment: No: D o not add to previous draw Performed By: #### 3 0478 #### [facility] [address] [place] [id number], [facility] Nucleated RBC/100 WBC (Bld) [Ratio] 0 % Normal 0-0 [facility] Comment on above: Order Comment: No: D o not add to previous draw Performed By: #### 3 0478 #### [facility] [address] [place] [id number], [place] PLAT CNT 176 10*3/uL Normal 150-400 [facility] Comment on above: Order Comment: No: D o not add to previous draw Performed By: #### 3 0478 #### [facility] [address] [place] [id number], [facility] RBC (Bld) [#/Vol] 2.49 10*6/uL Low 4.20-5.70 [facility] Comment on above: Order Comment: No: D o not add to previous draw Performed By: #### 3 0478 #### [facility] [address] [place] [address], [place] WBC (Bld) [#/Vol] 5.72 10*3/uL Normal 4.00-10.60 [facility] Comment on above: Order Comment: No: D o not add to previous draw Performed By: #### 3 0478 #### [facility] [address] [place] [address], [place] MAGNESIUM BLOODon 09-12-2020 Magnesium [Mass/Vol] 2.0 mg/dL Normal 1.9-2.7 [facility] Comment on above: Order Comment: No: D o not add to previous draw Performed By: #### 5 6101 #### [facility] [address] [place] [address], [facility] URINALYSIS REFLEXon 09-12-20 20 Appearance (U) CLEAR Normal CLEAR [facility] Comment on above: Order Comment: [place] nephrosis, please assess for hydronephrosis resolution Performed By: #### 3 0965 ####[facility] [place] [address], [facility] Bilirubin [Mass/Vol] Negative Normal NEGATIVE [facility] Comment on above: Order Comment: [place] nephrosis, please assess for hydronephrosis resolution Performed By: #### 3 0965 ####[facility] [place] [address], [place] BLOOD LARGE Abnormal NEGATIVE [facility] Comment on above: Order Comment: [place] nephrosis, please assess for hydronephrosis resolution Performed By: #### 3 0965 ####[facility] [place] [address], [place] Color (U) STRAW Abnormal YELLOW [facility] Comment on above: Order Comment: [place] nephrosis, please assess for hydronephrosis resolution Performed By: #### 3 0965 ####[facility] [place] [address], [place] EPIS NONE SEEN Normal FEW,OCC,NON E SEEN [facility] Comment on above: Order Comment: [place] nephrosis, please assess for hydronephrosis resolution Performed By: #### 3 0965 ####[facility] [place] [address], [place] Glucose [Mass/Vol] 50 mg/dL Abnormal NEGATIVE [facility] Comment on above: Order Comment: [place] nephrosis, please assess for hydronephrosis resolution Performed By: #### 3 0965 ####[facility] [place] [address], [place] KETONE Negative Normal NEGATIVE [facility] Comment on above: Order Comment: [place] nephrosis, please assess for hydronephrosis resolution Performed By: #### 3 0965 ####[facility] [place] [address], [place] LEUK DEJAH SMALL Abnormal NEGATIVE [facility] Comment on above: Order Comment: [place] nephrosis, please assess for hydronephrosis resolution Performed By: #### 3 0965 ####[facility] [place] [address], [place] Nitrite Ql (U) Negative Normal NEGATIVE [facility] Comment on above: Order Comment: [place] nephrosis, please assess for hydronephrosis resolution Performed By: #### 3 0965 ####[facility] [place] [address], [place] pH (Bld) 7.0 Normal 5.0-8.0 [facility] Comment on above: Order Comment: [place] nephrosis, please assess for hydronephrosis resolution Performed By: #### 3 0965 ####[facility] [place] [address], [place] Protein (U) [Mass/Vol] 30 mg/dL Abnormal NEGATIVE [facility] Comment on above: Order Comment: [place] nephrosis, please assess for hydronephrosis resolution Performed By: #### 3 0965 ####[facility] [place] [address], [place] RBC (U) [#/Vol] 51-100 Abnormal NONE SEEN [facility] Comment on above: Order Comment: [place] nephrosis, please assess for hydronephrosis resolution Performed By: #### 3 0965 ####[facility] [place] [address], [facility] SPEC GRAV 1.008 Low 1.015-1.020 [facility] Comment on above: Order Comment: [place] nephrosis, please assess for hydronephrosis resolution Performed By: #### 3 0965 ####[facility] [place] [address], [facility] WBC UA 6-10 Abnormal NONE SEEN [facility] Comment on above: Order Comment: [place] nephrosis, please assess for hydronephrosis resolution Performed By: #### 3 0965 ####[facility] [place] [address], [facility] BASIC METABOLIC PANELon 11-0 -2020 Calcium [Mass/Vol] 8.6 mg/dL Normal 8.6-10.3 [facility] Comment on above: Order Comment: [place] nephrosis, please assess for hydronephrosis resolution Performed By: #### 4 999, 61526, 22113 ####[facility] [place] [address], [place] Chloride [Moles/Vol] 103 mmol/L Normal 98-107 [facility] Comment on above: Order Comment: [place] nephrosis, please assess for hydronephrosis resolution Performed By: #### 4 999, 49948, 61319 ####[facility] [place] [address], [place] CO2 [Moles/Vol] 23 mmol/L Normal 21-31 [facility] Comment on above: Order Comment: [place] nephrosis, please assess for hydronephrosis resolution Performed By: #### 4 1000, 45703, 94359 ####[facility] [place] [address], [place] Creatinine [Mass/Vol] 9.15 mg/dL Critically high 0.70-1.30 [facility] Comment on above: Order Comment: [place] nephrosis, please assess for hydronephrosis resolution Performed By: #### 4 1000, 21447, 17358 ####[facility] [place] [address], [place] GFR/1.73 sq M predicted among blacks MDRD (S/P/Bld) [Vol rate/Area] 7 ml/min/1.73sq m Abnormal >60 [facility] Comment on above: Order Comment: [place] nephrosis, please assess for hydronephrosis resolution Result Comment: Calc ulation may not be valid for patients over 70 years Performed By: #### 4 1000, 67675, 89147 ####[facility] [place] [address], [place] GFR/1.73 sq M predicted among non-blacks MDRD (S/P/Bld) [Vol rate/Area] 6 ml/min/1.73sq m Abnormal >60 [facility] Comment on above: Order Comment: [place] nephrosis, please assess for hydronephrosis resolution Result Comment: Calc ulation may not be valid for patients over 70 years Performed By: #### 4 1000, 21821, 23835 ####[facility] [place] [address], [place] Glucose [Mass/Vol] 136 mg/dL High 70-100 [facility] Comment on above: Order Comment: [place] nephrosis, please assess for hydronephrosis resolution Performed By: #### 4 1000, 61877, 03438 ####[facility] [place] [address], [place] Potassium [Moles/Vol] 4.0 mmol/L Normal 3.5-5.1 [facility] Comment on above: Order Comment: [place] nephrosis, please assess for hydronephrosis resolution Performed By: #### 4 1000, 67704, 88319 ####[facility] Sodium [Moles/Vol] 139 mmol/L Normal 136-145 [facility] Comment on above: Order Comment: [place] nephrosis, please assess for hydronephrosis resolution Performed By: #### 4 1000, 68816, 89688 ####[facility] [facility] [place] [address], [facility] Urea nitrogen [Mass/Vol] 97 mg/dL High 7-25 [facility] Comment on above: Order Comment: [place] nephrosis, please assess for hydronephrosis resolution Performed By: #### 4 1000, 59059, 64877 ####[facility] [place] [address], [facility] CBC W/DIFFon 09-11-2020 ABS BASOPHILS 0.0 10*3/uL Normal 0.0-0.2 [facility] Comment on above: Order Comment: No: D o not add to previous draw Performed By: #### 5 0103 #### [facility] [address] [place] [address], [facility] ABS IMM GRANS 0.0 10*3/uL Normal 0.0-0.2 [facility] Comment on above: Order Comment: No: D o not add to previous draw Performed By: #### 5 0103 #### [facility] [address] [place] [address], [facility] ABS NEUTROPHILS 4.4 10*3/uL Normal 1.6-7.6 [facility] Comment on above: Order Comment: No: D o not add to previous draw Performed By: #### 5 0103 #### [facility] [address] [place] [address], [facility] Basophils/100 WBC (Bld) 0.2 % Normal 0.0-1.0 [facility] Comment on above: Order Comment: No: D o not add to previous draw Performed By: #### 5 0103 #### [facility] [address] Eosinophils (Bld) [#/Vol] 0.0 10*3/uL Normal 0.0-0.5 [facility] Comment on above: Order Comment: No: D o not add to previous draw Performed By: #### 5 0103 #### [facility] [address] [facility] [place] [address], [facility] Eosinophils/100 WBC (Bld) 0.2 % Normal 0.0-6.0 [facility] Comment on above: Order Comment: No: D o not add to previous draw Performed By: #### 5 0103 #### [facility] [address] Erythrocyte distribution width (RBC) [Ratio] 15.7 % High 11.5-15.0 [facility] Comment on above: Order Comment: No: D o not add to previous draw Performed By: #### 5 0103 #### [facility] [address] [facility] Hematocrit (Bld) [Volume fraction] 21.2 % Low 39.0-50.0 [facility] Comment on above: Order Comment: No: D o not add to previous draw Performed By: #### 5 0103 #### [facility] [address] [place] [address], [facility] Hemoglobin (Bld) [Mass/Vol] 7.3 g/dL Low 13.0-17.0 [facility] Comment on above: Order Comment: No: D o not add to previous draw Performed By: #### 5 0103 #### [facility] [address] [place] [address], [facility] IMMATURE GRANS 0.2 % Normal 0.0-1.0 [facility] Comment on above: Order Comment: No: D o not add to previous draw Performed By: #### 5 0103 #### [facility] [address] [facility] [place] [address], [facility] Lymphocytes (Bld) [#/Vol] 0.7 10*3/uL Low 1.2-4.0 [facility] Comment on above: Order Comment: No: D o not add to previous draw Performed By: #### 5 0103 #### [facility] [address] [place] [address], [facility] Lymphocytes/100 WBC (Bld) 13.2 % Low 20.0-45.0 [facility] Comment on above: Order Comment: No: D o not add to previous draw Performed By: #### 5 0103 #### [facility] [address] [facility] [address] MCH (RBC) [Entitic mass] 31.7 pg Normal 27.0-33.0 [facility] Comment on above: Order Comment: No: D o not add to previous draw Performed By: #### 5 0103 #### [facility] [address] MCHC (RBC) [Mass/Vol] 34.4 g/dL Normal 32.0-35.0 [facility] Comment on above: Order Comment: No: D o not add to previous draw Performed By: #### 5 0103 #### [facility] [address] MCV (RBC) [Entitic vol] 92.2 fL Normal 82.0-98.0 [facility] Comment on above: Order Comment: No: D o not add to previous draw Performed By: #### 5 0103 #### [facility] [address] [place] [address], [facility] Monocytes (Bld) [#/Vol] 0.2 10*3/uL Normal 0.1-1.0 [facility] Comment on above: Order Comment: No: D o not add to previous draw Performed By: #### 5 0103 #### [facility] [address] MONOS 4.3 % Low 5.0-12.0 [facility] Comment on above: Order Comment: No: D o not add to previous draw Performed By: #### 5 0103 #### [facility] [address] [place] [address], [place] Neutrophils/100 WBC (Bld) 81.9 % High 40.0-72.0 [facility] Comment on above: Order Comment: No: D o not add to previous draw Performed By: #### 5 0103 #### [facility] [address] [place] [address], [facility] Nucleated RBC/100 WBC (Bld) [Ratio] 0 % Normal 0-0 [facility] Comment on above: Order Comment: No: D o not add to previous draw Performed By: #### 5 0103 #### [facility] [address] [place] [address], [place] PLAT CNT 167 10*3/uL Normal 150-400 [facility] Comment on above: Order Comment: No: D o not add to previous draw Performed By: #### 5 0103 #### [facility] [address] [place] [address], [facility] RBC (Bld) [#/Vol] 2.30 10*6/uL Low 4.20-5.70 [facility] Comment on above: Order Comment: No: D o not add to previous draw Performed By: #### 5 0103 #### [facility] [address] [place] [address], [place] WBC (Bld) [#/Vol] 5.32 10*3/uL Normal 4.00-10.60 [facility] Comment on above: Order Comment: No: D o not add to previous draw Performed By: #### 5 0103 #### [facility] [address] [place] [address], [place] CREATININE URINE RANDOMon Creatinine [Mass/Vol] 56.0 mg/dL Normal [facility] Comment on above: Order Comment: No: D o not add to previous draw Result Comment: Ther e are no established reference values for random urine specimens Performed By: #### 5 6101 #### [facility] [address] Coding Summary.on 09-11-2020 Coding Summary. CODING DATE: 020 FINAL [facility] STATUS: Short-Term Hosp as IP PAYOR: Medicare [...] Revised Date Saved: 09/11/2020 01:43 pm Normal [facility] Consent for Blood Transfusio non 09-11-2020 Consent for Blood Transfusion [id number]#[id number] CD:127 Normal [facility] Consultationon 09-11-2020 Consultation MR#: [id number] [facility] Pt. Name: Chano Gómez Date of Service: 09/11/2020 Room #: 4AB [id number] Birthdate: 1945 Referring Physician: CONSULTATION ATTENDING PHYSICIAN: [...] urinary retention. At an outside facility, a Diaz catheter was placed for over 2 L [...] with no guarding or rigidity noted. : Diaz catheter in place with translucent light pink [...] male, presenting with acute urinary retention with Diaz catheter placed for 2 L. PLAN: 1. [...] assess for resolution of hydronephrosis. 7. Maintain Diaz catheter for at least 2 weeks. Thank [...] Travis MD Date Trans: 09/11/2020 09:42 A/jhonatan [id number]_[id number] Normal [facility] ED Traumaon 09-11-2020 ED Trauma [id number] CD:127 Normal [facility] EMS Documentationon 09-11-20 20 EMS Documentation [id number] CD:127 Normal [facility] FERRITINon 09-11-2020 Ferritin [Mass/Vol] 285 ng/mL Normal 24-336 [facility] Comment on above: Performed By: #### 8 4046, 33206, 59887, 93253, 04173 ####[facility] [place] [address], [facility] FOLATE SERUMon 09-11-2020 Folate [Mass/Vol] 14.64 ng/mL Normal 6.60-1000. 0 0 [facility] Comment on above: Result Comment: Norm al range reflects World Health Organization International Standard Performed By: #### 8 4046, 15092, 84913, 55868, 50884 ####[facility] [place] [address], [facility] HAPTOGLOBINon 09-11-2020 HAPTOGLOBIN 30 mg/dL Normal 26-164 [facility] Comment on above: Order Comment: Yes: Add to Previous draw if able Performed By: #### 3 1509, 04721 #### [facility] [address] [place] [id number], [facility] HEMOGLOBINon 09-11-2020 Hemoglobin (Bld) [Mass/Vol] 7.7 g/dL Low 13.0-17.0 [facility] Comment on above: Order Comment: No: D o not add to previous draw Performed By: #### 1 0008 #### [facility] [address] [place] [address], [facility] Hemoglobin (Bld) [Mass/Vol] 7.0 g/dL Low 13.0-17.0 [facility] Comment on above: Order Comment: The A ptima SARS-CoV-2 assay is a nucleic acid amplification test intended for the qualitative detection of RNA from SARS-CoV-2 isolated and purified from nasopharyngeal (COMPOSITION WEATHERBOARD INSTALLER),oropharyngeal (OP), nasal swab, sputum, and bronchoalveolar lavage (BAL) specimens from patients with signs and symptoms of infection who are suspected of COVID-19. Results are for the identification of SARS-CoV-2 RNA. The SARS-CoV-2 RNA is generally detectable during the acute phase of infection. The Aptima SARS-CoV-2 Assay on the [employer](BHI) and [employer](BHI) Fusion system is intended for use by laboratory personnel specifically instructed and trained in the operation of the [place] and [employer](BHI) Fusion system. The Aptima SARS-CoV-2 assay is [...] information. Performed By: #### 3 1792 #### [facility] [address] Hemoglobin (Bld) [Mass/Vol] 7.4 g/dL Low 13.0-17.0 [facility] Comment on above: Order Comment: No: D o not add to previous draw Performed By: #### 3 0478 #### [facility] [address] Hemoglobin (Bld) [Mass/Vol] 8.0 g/dL Low 13.0-17.0 [facility] Comment on above: Order Comment: No: D o not add to previous draw Performed By: #### 3 4119, 07184 #### [facility] [address] LDH BLOODon 09-11-2020 LDH 217 Units/L Normal 140-271 [facility] Comment on above: Order Comment: Yes: Add to Previous draw if able Performed By: #### 8 4046, 64355, 01602, 11934, 70845 ####[facility] [place] [address], [facility] MAGNESIUM BLOODon 09-11-2020 Magnesium [Mass/Vol] 2.1 mg/dL Normal 1.9-2.7 [facility] Comment on above: Order Comment: [place] nephrosis, please assess for hydronephrosis resolution Performed By: #### 4 1000, 26435, 31530 ####[facility] [place] [address], [facility] PHOSPHORUS BLOODon 0 Phosphate [Mass/Vol] 6.4 mg/dL High 2.5-5.0 [facility] Comment on above: Order Comment: No: D o not add to previous draw Performed By: #### 4 1000, 03849, 07569 ####[facility] [place] [address], [facility] Path. Reviewon 09-11-2020 Path Review Anemia with no incre ase of reticulocytes. [facility] Comment on above: Order Comment: Order Added by Discern Expert. Performed By: #### 2 501650, 20260374, 6212213, 4439291, 5457009, 0032569, 9016030, 3032350, 2986662, 59930417, 5049465, 39598780, 53497288, 0859027 ####[facility] [address] [place] [address] RETICULOCYTE PANELon 020 ABSOLUTE RETICULOCYTE 0.0425 10*6/uL Normal 0.02 50-0.10 00 [facility] Comment on above: Performed By: #### 3 1509, 95038 #### [facility] [address] [place] [address], [facility] IMMATURE RETICULOCYTE FRACTION 9.3 % Normal 2.0-16.0 [facility] Comment on above: Performed By: #### 3 1509, 72305 #### [facility] [address] [place] [address], [facility] RETIC COUNT 1.64 % Normal 0.50-1.80 [facility] Comment on above: Performed By: #### 3 1509, 44480 #### [facility] [address] [place] [address], [facility] RETICULOCYTE HEMOGLOBIN 37.3 pg High 28.0-36.0 [facility] Comment on above: Performed By: #### 3 1509, 84931 #### [facility] [address] [place] [address], [facility] SODIUM URINE RANDOMon 2019 Sodium (U) [Moles/Vol] 66 mmol/L Normal [facility] Comment on above: Order Comment: No: D o not add to previous draw Result Comment: Ther e are no established reference values for random urine specimens Performed By: #### 5 0608 #### [facility] [address] [place] [address], [facility] T PROT UR Kayden 09-11-2020 Protein [Mass/Vol] 400.0 mg/dL Normal [facility] Comment on above: Order Comment: No: D o not add to previous draw Result Comment: Ther e are no established reference values for random urine specimens Performed By: #### 5 6101 #### [facility] [address] [place] [address], [facility] TIBC- INCLUDES IRONon 2019 FE SATURATION 20 % Normal 20-50 [facility] Comment on above: Performed By: #### 8 4046, 30205, 18223, 14538, 51880 ####[facility] [place] [address], [facility] Iron [Mass/Vol] 52 ug/dL Normal 50-212 [facility] Comment on above: Performed By: #### 8 4046, 13379, 29931, 18443, 12560 ####[facility] [place] [address], [facility] TIBC 258 mcg/dL Normal 250-450 [facility] Comment on above: Performed By: #### 8 4046, 47136, 55391, 33322, 17273 ####[facility] [place] [address], [facility] UIBC 206 mcg/dL Normal 155-355 [facility] Comment on above: Performed By: #### 8 4046, 94235, 11149, 81696, 43391 ####[facility] [place] [address], [facility] US RENALon 09-11-2020 RENAL [facility] Department of Radiology [address] [place] [address] [phone] ===== Patient Name: CHANO GÓMZE : 1945 Sex: M Age: Race: White Pt. Location: [id number] Patient Status: I Ordered Date: 09/11/2020 2:00:00 AM Completed Date: 09/11/2020 09:24 AM Requesting Provider: FRANC MCCLOUD Attending Provider: RUSTY ROONEY Report Copy To: Signs & Symptoms: Increased [...] cm. The bladder is collapsed around a Diaz catheter balloon. The bladder appears markedly and diffusely thickened, even allowing for its collapsed state. IMPRESSION: Bilateral hydronephrosis, moderate on the right and severe on the left. Diffuse prominent thickening of the urinary bladder. Electronically signed: Harinder Nieves. Transcribed by: [id number], User Resident: Electronically Signed by: HARINDER NIEVES @ 09/11/2020 12:14 PM Normal [facility] Comment on above: Order Comment: [place] nephrosis, please assess for hydronephrosis resolution VITAMIN B12on 09-11-2020 Cobalamin (Vitamin B12) [Mass/Vol] 356 pg/mL Normal 180-914 [facility] Comment on above: Result Comment: REFE RENCE RANGES: 180-914 pg/mL Normal 145-179 pg/mL Indeterminate <145 pg/mL Deficient Performed By: #### 8 4046, 67503, 71367, 92985, 19068 ####[facility] *SARS-CoV-2 COVID-19on 09-10 [id number] Not Detected Normal Not Detected [facility] Comment on above: Order Comment: The A ptima SARS-CoV-2 assay is a nucleic acid amplification testintended for the qualitative detection of RNA from SARS-CoV-2 isolatedand purified from nasopharyngeal (COMPOSITION WEATHERBOARD INSTALLER),oropharyngeal (OP), nasal swab,sputum, and bronchoalveolar lavage (BAL) specimens from patients withsigns and symptoms of infection who are suspected of COVID-19.Results are for the identification of SARS-CoV-2 RNA. The SARS-CoV-2 RNAis generally detectable during the acute phase of infection.The Aptima SARS-CoV-2 Assay on the [employer](BHI) and [employer] system isintended for use by laboratory personnel specifically instructed andtrained in the operation of the [employer](BHI) and [place] Fusion system. The12Bisima SARS-CoV-2 assay is only for use under [...] information. Performed By: #### 1 0008 #### [facility] [address] [place] [address], [facility] ABO/Rhon 09-10-2020 ABO/Rh Positive [facility] Comment on above: Performed By: #### 1 8443362, 26470434, 0217001, 72047375 #### [facility] Laboratory [address] [place] [address] ABO/Rh History Checkon 09-10 ABO/Rh History Check Type verified by se cond s Normal [facility] Comment on above: Performed By: #### 1 1619896, 06693631, 1988758, 60475256 ####[facility] [address] [place] [address] ABO/Rh Retypeon 09-10-2020 ABO/Rh Retype Interp Positive Fish [facility] Comment on above: Performed By: #### 1 [id number] ####[facility] [address] [place] [address] ABSCon 09-10-2020 ABSC Gel Interp Negative Normal [facility] Comment on above: Performed By: #### 1 1999804, 65519030, 8128477, 73240511 ####[facility] [address] [place] [address] APTTon 09-10-2020 aPTT Coag (Bld) [Time] 27.3 s Normal 25.0-35.0 [facility] Comment on above: Result Comment: ALL RESULTS [...] THIS PURPOSE. Performed By: #### 3 1509, 16477 #### [facility] [address] Auto Diffon 09-10-2020 Basophils/100 WBC (Bld) 0.8 % Normal 0.0-2.0 [facility] Comment on above: Order Comment: Order Added by Discern Expert. Performed By: #### 2 450397, 82545467, 3796889, 5568398, 7305200, 1084797, 9214612, 8590014, 7185331, 88429004, 7187134, 24797287, 73767758, 3710241 ####[facility] [address] [place] [address] Basophils/Leukocytes Auto (Bld) [Pure # fraction] 0.1 E9/L Normal 0.0-0.2 [facility] Comment on above: Order Comment: Order Added by Discern Expert. Performed By: #### 2 432888, 41096399, 4261085, 6030082, 6840970, 5301242, 7949313, 2283290, 1053674, 16951683, 0681288, 15406486, 28519101, 5651634 ####[facility] [address] [place] [address] Eosinophils/100 WBC (Bld) 1.7 % Normal 0.0-8.0 [facility] Comment on above: Order Comment: Order Added by Discern Expert. Performed By: #### 2 159213, 33237777, 6211120, 0997029, 1263719, 5138553, 0440961, 5661874, 2319686, 95594702, 0302268, 69896492, 63501286, 2006332 ####[facility] [address] [place] [address] Eosinophils/Leukocytes Auto (Bld) [Pure # fraction] 0.1 E9/L Normal 0.0-0.5 [facility] Comment on above: Order Comment: Order Added by Discern Expert. Performed By: #### 2 744567, 46663487, 4583896, 7754578, 7547167, 9248353, 9518323, 0068101, 2459612, 91942597, 1904418, 92002559, 99494727, 5079674 ####[facility] [address] [place] [address] Lymphocytes/100 WBC (Bld) 34.8 % Normal 14.0-50.0 [facility] Comment on above: Order Comment: Order Added by Discern Expert. Performed By: #### 2 297210, 41982875, 7103713, 3195901, 5898337, 9690135, 9558363, 3961778, 6001224, 46983286, 6130856, 98878702, 85168733, 2968497 ####[facility] [address] [place] [address] Lymphocytes/Leukocytes Auto (Bld) [Pure # fraction] 2.2 E9/L Normal 1.0-4.0 [facility] Comment on above: Order Comment: Order Added by Discern Expert. Performed By: #### 2 705374, 36603367, 3145457, 2423317, 2819952, 6630199, 8713172, 2506643, 2026068, 65765936, 3216846, 58639768, 54698779, 5284099 ####[facility] [address] [place] [address] Monocytes/100 WBC (Bld) 4.9 % Normal 4.0-14.0 [facility] Comment on above: Order Comment: Order Added by Discern Expert. Performed By: #### 2 691309, 82004432, 5273521, 5704164, 7058900, 8133392, 9721462, 4109829, 7101357, 74249060, 2946268, 69274451, 53949527, 3342125 ####[facility] [address] [place] [address] Monocytes/Leukocytes Auto (Bld) [Pure # fraction] 0.3 E9/L Normal 0.2-1.0 [facility] Comment on above: Order Comment: Order Added by Discern Expert. Performed By: #### 2 499647, 88798988, 8672869, 8062785, 1377649, 9220813, 3743036, 8164887, 3629197, 98769224, 7111724, 71339855, 45802407, 1792525 ####[facility] [address] [place] [address] Neutrophils/100 WBC (Bld) 57.8 % Normal 36.0-75.0 [facility] Comment on above: Order Comment: Order Added by Discern Expert. Performed By: #### 2 548495, 37800327, 6629457, 1977942, 8836918, 3145969, 9007152, 1177161, 7160240, 25306072, 8224827, 43861464, 69817001, 6516746 ####[facility] [address] [place] [address] Neutrophils/Leukocytes Auto (Bld) [Pure # fraction] 3.6 E9/L Normal 2.0-7.5 [facility] Comment on above: Order Comment: Order Added by Discern Expert. Performed By: #### 2 193385, 95206581, 6874271, 3181353, 1342079, 2204424, 6733377, 9016049, 6499467, 77189551, 1135746, 74170723, 91927607, 5680117 ####[facility] [address] [place] [address] BMPon 09-10-2020 Urea nitrogen/Creatinine [Mass ratio] #syntax# 10-20 [facility] Comment on above: Performed By: #### 2 605831, 74574695, 4153566, 5836576, 2733029, 4085629, 5465050, 5094691, 2714105, 10576749, 7409388, 53798273, 97399961, 8141265 ####[facility] [address] [place] [address] Calcium [Mass/Vol] 9.0 mg/dL Normal 8.9-11.1 [facility] Comment on above: Performed By: #### 2 986406, 40021328, 6064354, 2347284, 9995848, 3779806, 0852277, 9694489, 1798926, 94502034, 7892650, 09127593, 25106154, 8567705 ####[facility] [address] [place] [address] Glucose [Mass/Vol] 167 mg/dL Normal 55-199 [facility] Comment on above: Result Comment: If t his glucose result represents a fasting glucose, interpretation should refer to the following reference range: 55-99 mg/dL Performed By: #### 2 944399, 05216604, 8185692, 2658230, 4796654, 0558152, 4992492, 2133802, 6889907, 48303274, 5691199, 79875118, 99444640, 2884029 ####[facility] [address] [place] [address] Chloride [Moles/Vol] 104 mmol/L Normal 101-111 [facility] Comment on above: Performed By: #### 2 992051, 29647836, 5524782, 5285001, 3181190, 6020433, 0403024, 4713628, 3634244, 58563861, 8904850, 03489364, 73407477, 3156090 ####[facility] [address] [place] [address] Potassium [Moles/Vol] 4.1 mmol/L Normal 3.5-5.3 [facility] Comment on above: Performed By: #### 2 084223, 49872030, 8812194, 6399851, 0137583, 8203200, 0654868, 1951129, 9309584, 87988438, 4677256, 38572334, 59852510, 0581052 ####[facility] [address] [place] [address] Sodium [Moles/Vol] 134 mmol/L Low 135-145 [facility] Comment on above: Performed By: #### 2 130147, 76174196, 7841661, 1312832, 8003980, 8562780, 1951784, 6852038, 2763619, 77375812, 3647012, 56573590, 75052196, 7140095 ####[facility] [address] [place] [address] Anion gap [Moles/Vol] 21 mmol/L High 6-16 [facility] Comment on above: Performed By: #### 2 026418, 93154118, 4247746, 6060476, 2540428, 9113544, 7582550, 2736250, 6846378, 72800551, 3116981, 85858479, 50743462, 6163068 ####[facility] [address] [place] [address] CO2 [Moles/Vol] 13 mmol/L Abnormal 21-31 [facility] Comment on above: Result Comment: Crit ical Result verified by repeat analysis\Critical Result S_CO2:13.0) Called to [facility] by VICENTA DOWNS and read back for confirmation at 09/10/2020 10:40:4 Performed By: #### 2 782941, 86651749, 2259176, 5490698, 3533096, 1770391, 8230040, 9120549, 5614534, 71348058, 6899641, 66938070, 31368177, 4520447 ####[facility] [address] [place] [address] Creatinine [Mass/Vol] 11.2 mg/dL Abnormal 0.5-1.3 [facility] Comment on above: Result Comment: Crit ical Result verified by repeat analysis\Critical Result S_CREA:11.20 Called to [facility] by VICENTA DOWNS And Read Back For Confirmation at: 09/10/2020 10:40:41 Performed By: #### 2 209384, 77266720, 5723401, 3562287, 5525960, 2496397, 5821211, 7375038, 4417028, 67152717, 5681991, 12309170, 16644061, 1665114 ####[facility] [address] [place] [address] Blood Bank ID#on 09-10-2020 BBID# [id number] [facility] Comment on above: Performed By: #### 1 7204460, 12582910, 5366433, 57588011 ####[facility] [address] [place] [address] CBC W/DIFFon 09-10-2020 ABS BASOPHILS 0.0 10*3/uL Normal 0.0-0.2 [facility] Comment on above: Performed By: #### 1 0008 #### [facility] [address] ABS IMM GRANS 0.0 10*3/uL Normal 0.0-0.2 [facility] Comment on above: Performed By: #### 1 0008 #### [facility] [address] ABS NEUTROPHILS 5.3 10*3/uL Normal 1.6-7.6 [facility] Comment on above: Performed By: #### 1 0008 #### [facility] [address] Basophils/100 WBC (Bld) 0.2 % Normal 0.0-1.0 [facility] Comment on above: Performed By: #### 1 0008 #### [facility] [address] [place] [address], [facility] Eosinophils (Bld) [#/Vol] 0.0 10*3/uL Normal 0.0-0.5 [facility] Comment on above: Performed By: #### 1 0008 #### [facility] [address] [place] [address], [facility] Eosinophils/100 WBC (Bld) 0.0 % Normal 0.0-6.0 [facility] Comment on above: Performed By: #### 1 0008 #### [facility] [address] Erythrocyte distribution width (RBC) [Ratio] 15.0 % Normal 11.5-15.0 [facility] Comment on above: Performed By: #### 1 0008 #### [facility] [address] Hematocrit (Bld) [Volume fraction] 29.4 % Low 39.0-50.0 [facility] Comment on above: Performed By: #### 1 0008 #### [facility] [address] [address] Hemoglobin (Bld) [Mass/Vol] 10.0 g/dL Low 13.0-17.0 [facility] Comment on above: Performed By: #### 1 0008 #### [facility] [address] [place] [address], [facility] IMMATURE GRANS 0.3 % Normal 0.0-1.0 [facility] Comment on above: Performed By: #### 1 0008 #### [facility] [address] Lymphocytes (Bld) [#/Vol] 0.5 10*3/uL Low 1.2-4.0 [facility] Comment on above: Performed By: #### 1 0008 #### [facility] [address] [place] [address], [facility] Lymphocytes/100 WBC (Bld) 8.6 % Low 20.0-45.0 [facility] Comment on above: Performed By: #### 1 0008 #### [facility] [address] MCH (RBC) [Entitic mass] 31.5 pg Normal 27.0-33.0 [facility] Comment on above: Performed By: #### 1 0008 #### [facility] [address] [place] [address], [facility] MCHC (RBC) [Mass/Vol] 34.0 g/dL Normal 32.0-35.0 [facility] Comment on above: Performed By: #### 1 0008 #### [facility] [address] [place] [address], [facility] MCV (RBC) [Entitic vol] 92.7 fL Normal 82.0-98.0 [facility] Comment on above: Performed By: #### 1 0008 #### [facility] [address] [place] [address], [facility] Monocytes (Bld) [#/Vol] 0.3 10*3/uL Normal 0.1-1.0 [facility] Comment on above: Performed By: #### 1 0008 #### [facility] [address] MONOS 4.5 % Low 5.0-12.0 [facility] Comment on above: Performed By: #### 1 0008 #### [facility] [address] Neutrophils/100 WBC (Bld) 86.4 % High 40.0-72.0 [facility] Comment on above: Performed By: #### 1 0008 #### [facility] [address] [place] [address], [facility] Nucleated RBC/100 WBC (Bld) [Ratio] 0 % Normal 0-0 [facility] Comment on above: Performed By: #### 1 0008 #### [facility] [address] PLAT CNT 155 10*3/uL Normal 150-400 [facility] Comment on above: Performed By: #### 1 0008 #### [facility] [address] RBC (Bld) [#/Vol] 3.17 10*6/uL Low 4.20-5.70 [facility] Comment on above: Performed By: #### 1 0008 #### [facility] [address] WBC (Bld) [#/Vol] 6.18 10*3/uL Normal 4.00-10.60 [facility] Comment on above: Performed By: #### 1 0008 #### [facility] [address] CBC w/ Auto Diffon 0 Erythrocyte distribution width (RBC) [Ratio] 14.7 % High 10.9-14.2 [facility] Comment on above: Performed By: #### 2 530765, 39650523, 7401632, 3639734, 7590949, 2931964, 7070095, 1075637, 6593475, 77539427, 4699797, 52799271, 45611722, 4765287 ####[facility] [address] [place] [address] Hematocrit (Bld) [Volume fraction] 17.1 % Low 37.7-49.0 [facility] Comment on above: Performed By: #### 2 213472, 47238005, 5117531, 2898490, 6423105, 7434109, 7686033, 4050302, 0596662, 72035858, 0584252, 60363859, 73272096, 0217934 ####[facility] [address] [place] [address] Hemoglobin (Bld) [Mass/Vol] 5.8 g/dL Abnormal 13.5-17.5 [facility] Comment on above: Result Comment: Resu lts Verified By Repeat Analysis. Results Called To Marta Cam in ED By INGA And Read Back For Confirmation On 09/10/2020 10:39:49 EST. Performed By: #### 2 551526, 09058833, 3435720, 4405858, 1344579, 3343813, 7751259, 5755208, 5631166, 42425350, 6816632, 56231651, 84773917, 2847401 ####[facility] [address] [place] [address] MCH (RBC) [Entitic mass] 32.6 pg Normal 27.0-34.0 [facility] Comment on above: Performed By: #### 2 847549, 61432515, 8799422, 3924983, 2648904, 0305206, 9262148, 4481533, 7358138, 45684064, 6683700, 80168440, 63471522, 4455054 ####[facility] [address] [place] [address] MCHC (RBC) [Mass/Vol] 33.7 g/dL Normal 31.4-36.0 [facility] Comment on above: Performed By: #### 2 754591, 38840640, 9976810, 3573554, 2479621, 0689985, 8724815, 2724215, 1070623, 18363786, 2289070, 91674592, 62641434, 3178924 ####[facility] [address] [place] [address] MCV (RBC) [Entitic vol] 96.8 fL Normal 80.0-100.0 [facility] Comment on above: Performed By: #### 2 779272, 49992762, 2429940, 1562622, 4200237, 9703753, 1713229, 0861637, 3057460, 43147656, 9813399, 50880174, 78564090, 7191024 ####[facility] [address] [place] [address] Platelet mean volume (Bld) [Entitic vol] 10.3 fL Normal 6.4-10.8 [facility] Comment on above: Performed By: #### 2 507924, 27632313, 9142115, 0034531, 3629466, 4774506, 7645437, 5907031, 8351941, 90628166, 1375799, 91415530, 58909088, 4874665 ####[facility] [address] [place] [address] Platelets (Bld) [#/Vol] 202.0 E9/L Normal 150.0-500.0 [facility] Comment on above: Performed By: #### 2 483123, 62919733, 7178534, 7474400, 9180882, 0780304, 2688727, 4381956, 9532220, 14800789, 0316060, 67751453, 85373707, 7906947 ####[facility] [address] [place] [address] RBC (Bld) [#/Vol] 1.8 E12/L Low 4.3-5.9 [facility] Comment on above: Performed By: #### 2 854386, 54642441, 4936570, 9057703, 5727911, 0757966, 4121027, 0090885, 0462560, 90538054, 0944422, 66369965, 74212085, 6954229 ####[facility] [address] [place] [address] WBC corrected for nucl RBC Auto (Bld) [#/Vol] 6.2 E9/L Normal 4.0-11.0 [facility] Comment on above: Performed By: #### 2 002543, 21069992, 6695871, 2069274, 3907544, 6327383, 4522795, 9977119, 7740827, 65632965, 9705695, 70567389, 09984099, 3178433 ####[facility] [address] [place] [address] COMP METABOLIC PANELon 09-10 Albumin [Mass/Vol] 4.0 g/dL Normal 3.5-5.7 [facility] Comment on above: Performed By: #### 3 1509, 60409 #### [facility] [address] [place] [address], [place] ALKALINE PHOSPH 25 IU/L Low 34-104 [facility] Comment on above: Performed By: #### 3 1509, 46405 #### [facility] [address] [place] [address], [place] ALT [Catalytic activity/Vol] 9 U/L Normal 7-52 [facility] Comment on above: Performed By: #### 3 1509, 52890 #### [facility] [address] [place] [address], [place] AST [Catalytic activity/Vol] 9 U/L Low 13-39 [facility] Comment on above: Performed By: #### 3 1509, 49969 #### [facility] [address] [place] [address], [place] Bilirubin [Mass/Vol] 0.5 mg/dL Normal 0.3-1.0 [facility] Comment on above: Performed By: #### 3 1509, 28169 #### [facility] [address] [place] [address], [place] Calcium [Mass/Vol] 9.0 mg/dL Normal 8.6-10.3 [facility] Comment on above: Performed By: #### 3 1509, 59609 #### [facility] [address] [place] [address], [place] Chloride [Moles/Vol] 102 mmol/L Normal 98-107 [facility] Comment on above: Performed By: #### 3 1509, 19492 #### [facility] [address] [place] [address], [place] CO2 [Moles/Vol] 18 mmol/L Low 21-31 [facility] Comment on above: Performed By: #### 3 1509, 69400 #### [facility] [address] [place] [address], [place] Creatinine [Mass/Vol] 9.80 mg/dL Critically high 0.70-1.30 [facility] Comment on above: Performed By: #### 3 1509, 99718 #### [facility] [address] [place] [address], [place] GFR/1.73 sq M predicted among blacks MDRD (S/P/Bld) [Vol rate/Area] 6 ml/min/1.73sq m Abnormal >60 [facility] Comment on above: Result Comment: Calc ulation may not be valid for patients over 70 years Performed By: #### 3 1509, 81791 #### [facility] [address] [place] [address], [place] GFR/1.73 sq M predicted among non-blacks MDRD (S/P/Bld) [Vol rate/Area] 5 ml/min/1.73sq m Abnormal >60 [facility] Comment on above: Result Comment: Calc ulation may not be valid for patients over 70 years Performed By: #### 3 1509, 16475 #### [facility] [address] [place] [address], [place] Glucose [Mass/Vol] 143 mg/dL High 70-100 [facility] Comment on above: Performed By: #### 3 1509, 40318 #### [facility] [address] [place] [address], [place] Potassium [Moles/Vol] 4.3 mmol/L Normal 3.5-5.1 [facility] Comment on above: Performed By: #### 3 1509, 61560 #### [facility] [address] [place] [address], [place] Protein [Mass/Vol] 7.1 g/dL Normal 6.0-8.3 [facility] Comment on above: Performed By: #### 3 1509, 87012 #### [facility] [address] Sodium [Moles/Vol] 135 mmol/L Low 136-145 [facility] Comment on above: Performed By: #### 3 1509, 51806 #### [facility] [address] Urea nitrogen [Mass/Vol] 107 mg/dL High 7-25 [facility] Comment on above: Performed By: #### 3 1509, 45932 #### [facility] [address] CPK-MB PROFILEon 09-10-2020 CK [Catalytic activity/Vol] 104 U/L Normal 30-223 [facility] Comment on above: Order Comment: No: D o not add to previous draw Performed By: #### 3 1509, 99042 #### [facility] [address] CK.MB [Mass/Vol] 5.7 ng/mL Critically high 0.0-1.9 [facility] Comment on above: Order Comment: No: D o not add to previous draw Performed By: #### 3 1509, 76207 #### [facility] [address] CK.MB [Mass/Vol] 5.9 ng/mL High 0.0-5.0 [facility] Comment on above: Order Comment: No: D o not add to previous draw Result Comment: IF T OTAL CK <200 U/L AND: 1. CKMB IS 5-10 NG/ML----BORDERLINE 2. CKMB IS >10 NG/ML----INDICATIVE OF [place] OR IF TOTAL CK >200 U/L AND CKMB INDEX >1.9----INDICATIVE OF [place] Performed By: #### 3 1509, 93093 #### [facility] [address] Abdomen/Pelvis w/o Contra ston 09-10-2020 CT [...] None Contrast amount in ml's: 0 Normal [facility] CT Chest w/o Contraston CT [...] the base of bladder. There is a Diaz balloon catheter within the bladder lumen. There [...] M.D. Transcribed by: EUGENIE Technologist: GIBRAN Normal [facility] CT Head or Brain w/o Tony ton 09-10-2020 CT Head or Brain w/o Contrast [...] M.D. Transcribed by: EUGENIE Technologist: GIBRAN Pretty [facility] CT Maxillofacial w/o Tony ton 09-10-2020 CT Maxillofacial w/o Contrast Exam [...] M.D. Transcribed by: EUGENIE Technologist: GIBRAN [facility] CT Spine Cervical w/o Justin rivers 09-10-2020 [...] M.D. Transcribed by: EUGENIE Technologist: GIBRAN Normal [facility] Consent for Treatmenton Consent for Treatment [id number] CD:127 [facility] Consultation Noteon 09-10-20 Consultation Note Patient: LISA GÓMEZ Age: 75 years Sex: Male : 1945 [...] as well as getting PRBC. He has Diaz catheter with over 900 cc in the Diaz bag Review of Systems Unable to obtain [...] Last Charted Temp Oral 36.4 DegC (SEP 10 12:50) Heart Rate Peripheral 75 bpm (SEP 10:50) [...] uropathy as well as low hemoglobin. With Diaz catheter placement, he has robust urine output. He does have slightly elevated myoglobin; please check CPK and may need to trend as he may be at risk for rhabdomyolysis given fall with unknown details regarding duration. Agree with bicarb drip as you are for now. 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 Normal [facility] Comment on above: Result Comment: Elec tronically Signed By: Zari GONZALEZ, Jigar\.br\Date and Time Signed: 09/10/20 14:44 EST ED Clinical Summaryon 2019 ED Clinical Summary (Inserted Image. Ailyn ble to display) [place] [id number] ED Clinical Summary Person Information Name: CHANO GÓMEZ/Silvia Age: 75 Years : 1945 Sex: Male Language: Latvian PCP: SOHAM WILSON DO Marital Status: Visit Id: Visit Reason: [...] 09/10/2020 16:11:24 09/10/2020 16:11:24 09/10/2020 16:11:24 ADDRESS: [address] [place] [address] PHYS DOC NOTES: MEDICAL INFORMATION: Prescriptions Given: PATIENT EDUCATION INFORMATION: Instructions: Follow up: DIAGNOSIS: 1:Head trauma; 2:Renal failure; 3:Anemia Normal [facility] ED Note-Physicianon 09-10-20 ED Note-Physician [...] are within normal range. Talk to the freight agent on-call, she advised to start the patient [...] tried to have the patient transferred to [facility], after unsuccessful attempts we tried [facility], they did not have a bed ready and the family wanted him to be transferred sooner. I talked to Dr. Adames at the emergency department at [facility] and he kindly accepted the patient. Patient will be transferred via an ambulance. Patient has been doing much better. Patient has good urine output. Most likely cause of patient's renal failure is enlarged prostate since patient drained about 2 L of urine when the Diaz's catheter was introduced. All these labs of [...] Discharge Condition Patient will be transferred to [facility] emergency department under Dr. Adames Discharge Prescription [...] 10:00:00) Lymph Auto: 34.8 % (09/10/20 10:00:00) Seminole Auto: 4.9 % (09/10/20 10:00:00) Eos Auto: 1.7 % (09/10/20 10:00:00) Basophil Auto: 0.8 % (09/10/20 10:00:00) Neutro Absolute: 3.6 E9/L (09/10/20 10:00:00) Lymph Absolute: 2.2 E9/L (09/10/20 10:00:00) Seminole Absolute: 0.3 E9/L (09/10/20 10:00:00) Eos Absolute: [...] the base of bladder. There is a Diaz balloon catheter within the bladder lumen. There [...] By: Yair Dominguez MD 09/10/2020 10:58:49 Normal [facility] Comment on above: Result Comment: Elec tronically Signed By: Yair Dominguez MD\.br\Date and Time Signed: 09/10/20 15:02 EST ED Patient Education Noteon 09-10-2020 ED Patient Education Note Normal [facility] ED Patient Summaryon 020 ED Patient Summary (Inserted Image. Ailyn ble to display) [place] [id number] Patient Discharge Instructions Person Information Name: CHANO GÓMEZ Age: 75 Years Arrival Date: 09/10/2020 09:50:41 Discharge Diagnosis: 1:Head trauma; 2:Renal failure; 3:Anemia Primary Care Physician: SOHAM WILSON DO Provider Information Primary Provider: Yair Dominguez MD Advanced Life Skills Worker:None The exam and treatment you received in the Emergency Department were for an urgent problem and are not intended as complete care. It is important that you follow up with a doctor, nurse practitioner, or physician?s surgical supply assistant for ongoing care. If your symptoms become worse or you do not improve as expected and you are unable to reach your usual health care provider, you should return to the Emergency Department. We are available 24 hours a day. CHANO GÓMEZ has been given the following list of [...] opioids can be used to help relieve yjcjkbjs-yn-snvtpm pain and are often prescribed following a [...] struggling with addiction, tell your health care trainer and ask for guidance or call [facility]?S National Helpline at 0-225-003-DQUI. v Source: [place] Department of Health and Human Services/Center for Disease Control & Prevention [facility] Medications Given: Medication Dose Route sodium bicarbonate 1150.00 mL Initial Volume 100.00 mL/hr IV Left Lower Forearm Dextrose 5% in Water intravenous solution 1150.00 mL Initial Volume 100.00 mL/hr IV Left Lower Forearm bupivacaine 150.00 mg IntraDermal Medication Information: Comment: Pharmacy Information: Thank you for choosing [facility] Patient Education Materials: RICO Lundy LARRY , have received the following patient education materials/instructions and have verbalized understanding: Patient Education Materials: Follow-up Instructions: Patient Signature Date Clinician/Nurse Signature _ Date 09/10/2020 16:11:26 Normal [facility] Ethanolon 09-10-2020 Ethanol [Mass/Vol] mg/dL Normal <=7 [facility] Comment on above: Performed By: #### 2 273473, 90289045, 6170112, 5592754, 9739155, 9726204, 8203270, 8673562, 8413661, 93457737, 7329557, 54158938, 81725267, 6063673 ####[facility] [address] [place] [address] Hep Func Panelon 09-10-2020 Albumin [Mass/Vol] 1.2 g/dL Normal 1.1-2.2 [facility] Comment on above: Performed By: #### 2 479242, 51943034, 4214592, 1605325, 1554583, 3527119, 7082054, 0005064, 2183907, 80405040, 6985966, 29427270, 85457229, 8732070 ####[facility] [address] [address] Albumin [Mass/Vol] 3.9 g/dL Normal 3.3-5.0 [facility] Comment on above: Performed By: #### 2 538417, 24929784, 5306629, 1260818, 9953644, 0591816, 3233241, 9291133, 9229188, 25381844, 9162936, 05831218, 49798217, 9970430 ####[facility] [address] [place] [address] ALP [Catalytic activity/Vol] 25 Int._Unit/L Normal 21-98 [facility] Comment on above: Performed By: #### 2 908377, 85934648, 4131916, 8409324, 0383217, 3356575, 1410520, 5156616, 9247009, 38412233, 8079617, 45254186, 29346065, 2225931 ####[facility] [address] [place] [address] ALT No additional P-5'-P [Catalytic activity/Vol] 12 Int._Unit/L Normal 6-46 [facility] Comment on above: Performed By: #### 2 295120, 55651538, 4637731, 0074507, 5917861, 8466101, 1482063, 7009684, 4797068, 80384743, 1598841, 75972846, 33278172, 9355641 ####[facility] [address] [place] [address] AST [Catalytic activity/Vol] 12 Int._Unit/L Normal 5-43 [facility] Comment on above: Performed By: #### 2 686489, 70357311, 2177258, 4277398, 0091496, 4893284, 3864364, 7275455, 7947615, 09664483, 9230233, 44495292, 84273319, 8815369 ####[place] 9588757 Bilirubin [Mass/Vol] 0.6 mg/dL Normal 0.0-1.1 [facility] Comment on above: Performed By: #### 2 980971, 68426254, 7159194, 2604484, 1441285, 5552699, 6921369, 9957885, 3167845, 38424645, 7155172, 56434878, 15346429, 1715283 ####[address] [address] Bilirubin.direct [Mass/Vol] 0.5 mg/dL Normal 0.1-0.9 [facility] Comment on above: Performed By: #### 2 081737, 60015780, 0270855, 3818411, 5972941, 0676983, 1014387, 7525442, 6281176, 94381973, 9200485, 97208893, 05959798, 3630338 ####[address] [address] Bilirubin.direct [Mass/Vol] 0.1 mg/dL Normal 0.1-0.4 [facility] Comment on above: Performed By: #### 2 075101, 76919338, 4191489, 6876839, 2818095, 7289868, 7748375, 5278349, 7641282, 51965447, 3718785, 84907388, 65096683, 0452648 ####[facility] [address] [place] [address] Globulin (S) [Mass/Vol] 3.3 g/dL Normal 1.4-4.0 [facility] Comment on above: Performed By: #### 2 698378, 36007269, 1673669, 2548089, 5204647, 0888614, 5236428, 8545283, 5894216, 75288387, 2258174, 13604017, 59842404, 0501621 ####[facility] [address] [place] [address] Protein [Mass/Vol] 7.2 g/dL Normal 6.0-7.8 [facility] Comment on above: Performed By: #### 2 830600, 05412662, 8872300, 1999469, 3921838, 3311356, 8089104, 2547312, 5412985, 05012820, 1044691, 68915734, 02031945, 1378540 ####[facility] [address] [place] [address] LACTATE BLOODon 09-10-2020 Lactate [Moles/Vol] 0.6 mmol/L Normal 0.5-2.2 [facility] Comment on above: Order Comment: No: D o not add to previous draw Performed By: #### 5 6101 #### [facility] [address] [place] [address], [facility] Lactic Acidon 09-10-2020 Lactate [Mass/Vol] 1.3 mmol/L Normal 0.5-2.2 [facility] Comment on above: Performed By: #### 2 733733, 35600922, 4763034, 3493316, 1338224, 3178516, 6551461, 5670686, 0303326, 80709981, 4700257, 04285749, 96842121, 5592869 ####[facility] [address] [place] [address] Lipase Levelon 09-10-2020 Lipase [Catalytic activity/Vol] 80 unit/L High 13-58 [facility] Comment on above: Performed By: #### 2 313255, 20526182, 8088241, 8865066, 0431610, 5478628, 1790466, 1195621, 8661058, 47648364, 7715317, 31594376, 70689331, 1551832 ####[facility] [address] [place] [address] MYOGLOBINon 09-10-2020 Myoglobin [Mass/Vol] 233 ng/mL Critically high 0-90 [facility] Comment on above: Result Comment: A DO UBLING OF VALUES FROM SERIAL BLOOD COLLECTIONS (1 - 2 HOURS APART) IS MORE INDICATIVE OF A M.I. THAN THE ABSOLUTE VALUE. Performed By: #### 3 1509, 95227 #### [facility] [address] [place] [address], [facility] Magnesiumon 09-10-2020 Magnesium [Mass/Vol] 2.5 mg/dL High 1.3-2.4 [facility] Comment on above: Performed By: #### 2 188103, 71464258, 8427114, 3168491, 4240092, 4977064, 7357211, 2186535, 2788690, 24252487, 4664907, 19691239, 91683549, 9923645 ####[facility] [address] [place] [address] Morphon 09-10-2020 Morphology Kayode (Bld) [Interp] Normal Normal [facility] Comment on above: Order Comment: Order Added by Discern Expert. Performed By: #### 2 526791, 84172337, 2213877, 1415494, 9309243, 2137626, 6205031, 6702333, 7390095, 58972743, 7548326, 99775392, 90980114, 4335767 ####[facility] [address] [place] [address] Myoglobinon 09-10-2020 Myoglobin [Mass/Vol] 251 ng/mL High <=69 [facility] Comment on above: Performed By: #### 2 511383, 03428218, 2290390, 5555290, 1370818, 4847770, 3298624, 4090137, 3407448, 39434508, 4705091, 18359820, 31239037, 2318157 ####[facility] [address] [place] [address] PROTHROMBIN TIMEon 0 INR Coag (PPP) [Relative time] 0.97 {INR} Normal 0.91-1.16 [facility] Comment on above: Result Comment: ACCC [...] CHEST 1995;[id number]. Performed By: #### 3 1509, 19689 #### [facility] [address] PT Coag (PPP) [Time] 12.9 s Normal 12.3-14.8 [facility] Comment on above: Result Comment: ALL RESULTS MUST BE INTERPRETED WITH RESPECT TO BLOOD DRAWING ARTIFACT OR DILUTION ERROR OF ANTICOAGULANT AT THE TIME OF SAMPLING. Performed By: #### 3 1509, 95937 #### [facility] [address] [place] [address], [facility] PT & PTTon 09-10-2020 aPTT Coag (PPP) [Time] 23.1 second(s) Low 25.1-36.5 [facility] Comment on above: Result Comment: Hepa rin therapeutic range (represented by Anti-Factor Xa activity of 0.2 - 0.4 U/mL) corresponds to PTT of 56.6 - 109.0 sec. Performed By: #### 2 343208, 70918108, 0974887, 2388697, 5991764, 0158154, 0079424, 0886492, 8636574, 59676439, 0037506, 27414408, 00258283, 6069538 ####[facility] [facility] [address] [place] [address] INR Coag (PPP) [Relative time] 1.0 {INR} [facility] Comment on above: Result Comment: INR results are specifically intended to assess patients stabilized on long-term Anticoagulation therapy suggested INR?s ?Less Intensive Anticoagulation? 2.0 ? 3.0 Conventional Range 3.0 ? 4.5 Performed By: #### 2 [id number], [id number], 2045000, 8883996, 9968694, 3260346, 8813807, 7432099, 5686793, 03657305, 2797633, 18102770, 64616950, 7899149 ####[facility] [address] [place] [address] PT Coag (PPP) [Time] 12.0 second(s) Normal 10.2-12.9 [facility] Comment on above: Performed By: #### 2 [id number], [id number], 8872974, 3400566, 2138217, 9134051, 5300037, 4730947, 1694267, 13900759, 6627965, 61530170, 38153476, 7167851 ####[facility] [address] [place] [address] RCOon 09-10-2020 # of Units 2 [facility] Comment on above: Result Comment: 09/10 12:19 [id number] Blood product ready and called to Renu in ED at 09/10/2020 12:19:01 EST by cmk. Performed By: #### 1 [id number] #### [facility] Laboratory [address] [id number] Date Required 09-10-2020 [facility] Comment on above: Performed By: #### 1 [id number] #### [facility] [address] [place] [address] Product Type None Required [facility] Comment on above: Performed By: #### 1 [id number] #### [facility] [address] [address] TROPONIN-Ion 09-10-2020 Troponin I.cardiac [Mass/Vol] 0.03 ng/mL Normal 0.00-0.04 [facility] Comment on above: Result Comment: REFE RENCE RANGES: 0.00 - 0.04 ng/ml NORMAL 0.05 - 0.50 ng/ml INDETERMINATE > 0.50 ng/ml CONSISTENT WITH AN M.I. Performed By: #### 3 1509, 61581 #### [facility] [address] [facility] [place], [place] [address] Transfer Documentson 020 Transfer Documents [id number] CD:127 Normal [facility] Troponinon 09-10-2020 Troponin I.cardiac [Mass/Vol] 12.10 pg/mL Low 15.90-38.40 [facility] Comment on above: Result Comment: The 95% CI (Confidence Interval) PPV (Positive Predictive Value) for myocardial infarction in females is 38 pg/mL, in males 51 pg/mL. The results should be used in conjunction with clinical conditions of myocardial infarction. (Access High Sensitivity Troponin I Instructions For Use, Meghana Chun, June 2018) Performed By: #### 2 [id number], [id number], 7850878, 9424487, 6474906, 5462112, 6157468, 3160762, 2119736, 55243816, 4301241, 62436050, 46453555, 4536665 ####[facility] [address] [place] [address] U Drug Screenon 09-10-2020 Amphetamines Screen method >1000 ng/mL Ql (U) Negative Normal Negative [facility] Comment on above: Result Comment: Nega tive Cutoff: <1000 ng/mL Performed By: #### 2 [id number] #### [facility] [address] [place] [address] Barbiturates Screen Ql (U) Negative Normal Negative [facility] Comment on above: Result Comment: Nega tive Cutoff: <200 ng/mL Performed By: #### 2 [id number] #### [facility] [address] [place] [address] Benzodiazepines Ql (U) Negative Normal Negative [facility] Comment on above: Result Comment: Nega tive Cutoff: <200 ng/mL Performed By: #### 2 633399 #### [facility] [address] [place] [address] Cocaine Ql (U) Negative Normal [facility] Comment on above: Result Comment: Nega tive Cutoff: <300 ng/mL Performed By: #### 2 [id number] #### [facility] [address] [place] [address] Opiates Screen Ql (U) Negative Normal Negative [facility] Comment on above: Result Comment: Nega tive Cutoff: <300 ng/mL Performed By: #### 2 [id number] #### [facility] [address] [place] [address] Phencyclidine Screen method >25 ng/mL Ql (U) Negative Normal Negative [facility] Comment on above: Result Comment: Nega tive Cutoff: <25 ng/mL These drug screen results are to be used for medical (i.e., treatment) purposes only. Unconfirmed drug screening results must not be used for non-medical purposes (e.g., employment testing, legal testing). Performed By: #### 2 [id number] #### [facility] [address] [place] [address] Tetrahydrocannabinol Screen method >50 ng/mL Ql (U) Negative Normal Negative [facility] Comment on above: Result Comment: Nega tive Cutoff: <50 ng/mL Performed By: #### 2 [id number] #### [facility] [address] [place] [address] URINALYSISon 09-10-2020 Appearance (U) SL CLOUDY Abnormal CLEAR [facility] Comment on above: Performed By: #### 1 0008 #### [facility] [address] [place] [address], [facility] Bilirubin [Mass/Vol] Negative Normal NEGATIVE [facility] Comment on above: Performed By: #### 1 0008 #### [facility] [address] [place] [address], [place] BLOOD LARGE Abnormal NEGATIVE [facility] Comment on above: Performed By: #### 1 0008 #### [facility] [address] [place] [address], [place] Color (U) STRAW Abnormal YELLOW [facility] Comment on above: Performed By: #### 1 0008 #### [facility] [address] [place] [address], [place] EPIS NONE SEEN Normal FEW,OCC,NON E SEEN [facility] Comment on above: Performed By: #### 1 0008 #### [facility] [address] [place] [address], [place] Glucose [Mass/Vol] 50 mg/dL Abnormal NEGATIVE [facility] Comment on above: Performed By: #### 1 0008 #### [facility] [address] KETONE Negative Normal NEGATIVE [facility] Comment on above: Performed By: #### 1 0008 #### [facility] [address] LEUK DEJAH TRACE Abnormal NEGATIVE [facility] Comment on above: Performed By: #### 1 0008 #### [facility] [address] [facility] Nitrite Ql (U) Negative Normal NEGATIVE [facility] Comment on above: Performed By: #### 1 0008 #### [facility] [address] pH (Bld) 7.0 Normal 5.0-8.0 [facility] Comment on above: Performed By: #### 1 0008 #### [facility] [address] Protein (U) [Mass/Vol] 100 mg/dL Abnormal NEGATIVE [facility] Comment on above: Performed By: #### 1 0008 #### [facility] [address] RBC (U) [#/Vol] 51-100 Abnormal NONE SEEN [facility] Comment on above: Performed By: #### 1 0008 #### [facility] [address] SPEC GRAV 1.006 Low 1.015-1.020 [facility] Comment on above: Performed By: #### 1 0008 #### [facility] [address] WBC UA 6-10 Abnormal NONE SEEN [facility] Comment on above: Performed By: #### 1 0008 #### [facility] [address] VENOUS BLOOD GASon 0 BASE EXCESS -6 mmol/L Normal [facility] Comment on above: Performed By: #### 3 1509, 14663 #### [facility] [address] [place] [address], [facility] HCO3 (Bld) [Moles/Vol] 19 mmol/L Normal [facility] Comment on above: Performed By: #### 3 1509, 99801 #### [facility] [address] [place] [address], [facility] Oxygen (Bld) [Partial pressure] 37 mm[Hg] Normal 35-45 [facility] Comment on above: Performed By: #### 3 1509, 72246 #### [facility] [address] [place] [address], [facility] Oxygen saturation in Blood 68.4 % Normal 65.0-75.0 [facility] Comment on above: Performed By: #### 3 1509, 14826 #### [facility] [address] [place] [address], [facility] PCO2 37 mmHg Normal [facility] Comment on above: Performed By: #### 3 1509, 73865 #### [facility] [address] [place] [address], [facility] pH (Bld) 7.32 [pH] Normal 7.31-7.41 [facility] Comment on above: Performed By: #### 3 1509, 22651 #### [facility] [address] [place] [address], [facility] eGFRon 09-10-2020 GFR/1.73 sq M predicted among blacks MDRD (S/P/Bld) [Vol rate/Area] 5 mL/min/1.73 m2 Low >=59 [facility] Comment on above: Order Comment: Order added by Discern Expert. Result Comment: eGFR is race adjusted. AA=. Performed By: #### 2 913240, [id number], 9582596, 8365223, 2496906, 2868646, 0213718, 9682044, 9389961, 53595803, 1711582, 34620022, 12309170, 1294977 ####[facility] [address] [place] [address] GFR/1.73 sq M predicted among non-blacks MDRD (S/P/Bld) [Vol rate/Area] 5 mL/min/1.73 m2 Low >=59 [facility] Comment on above: Order Comment: Order added by Discern Expert. Result Comment: Pbx Supervisor jean kidney disease could be indicated at eGFR's of less than 60 mL/min/1.73m2. Kidney failure is indicated at less than 15 mL/min/1.73m2. Performed By: #### 2 913599, [id number], 4726202, 8049740, 5926268, 1771939, 4449003, 6121846, 9471767, 38307656, 7338927, 55661722, 36040160, 5842445 ####[facility] [address] [place] [address] Vital Signs Date Time Vital Sign Value Performing Clinician Facility 01-27-2025 13:29-0400 Body temperature 97.9 [degF] Tess Earl MD Work Phone: [facility] 01-27-2025 13:29-0400 Diastolic blood pressure 77 mm[Hg] Tess Earl MD Work Phone: [facility] [employer] [facility] 01-27-2025 13:29-0400 Heart rate 76 /min Tess Earl MD Work Phone: [facility] 01-27-2025 13:29-0400 Respiratory rate 16 /min Tess Earl MD Work Phone: [facility] 01-27-2025 13:29-0400 SaO2% (BldA) [Mass fraction] 98 % Tess Earl MD Work Phone: [facility] [employer] 01-27-2025 13:29-0400 Systolic blood pressure 147 mm[Hg] Tess Earl MD Work Phone: [facility] 01-27-2025 04:45-0400 Body mass index (BMI) [Ratio] 19.53 kg/m2 Tess Earl MD Work Phone: [facility] 01-27-2025 04:45-0400 Body weight 63.5 kg Tess Earl MD Work Phone: [facility] 01-25-2025 09:31-0400 Body height 180.3 cm Tess Earl MD Work Phone: [facility] 08-16-2024 15:08-0400 Body mass index (BMI) [Ratio] 21.2 kg/m2 [facility] 08-16-2024 15:08-0400 Diastolic blood pressure 100 mm[Hg] [facility] 08-16-2024 15:08-0400 Systolic blood pressure 160 mm[Hg] [facility] 08-16-2024 14:41-0400 Body height 179.07 cm [facility] 08-16-2024 14:41-0400 Body weight 68.26 kg [facility] 08-16-2024 14:41-0400 Heart rate 91 /min [facility] 08-16-2024 14:41-0400 Respiratory rate 12 /min [facility] 05-04-2024 13:35-0400 Body height 179.07 cm [facility] 05-04-2024 13:35-0400 Body mass index (BMI) [Ratio] 21.1 kg/m2 [facility] 05-04-2024 13:35-0400 Body weight 67.69 kg [facility] 05-04-2024 13:35-0400 Diastolic blood pressure 134 mm[Hg] [facility] 05-04-2024 13:35-0400 Heart rate 98 /min [facility] 05-04-2024 13:35-0400 Respiratory rate 12 /min [facility] 05-04-2024 13:35-0400 Systolic blood pressure 199 mm[Hg] [facility] 02-03-2024 15:18-0400 Body height 179.07 cm [facility] 02-03-2024 15:18-0400 Body mass index (BMI) [Ratio] 22.9 kg/m2 [facility] 02-03-2024 15:18-0400 Body weight 73.59 kg [facility] 02-03-2024 15:18-0400 Diastolic blood pressure 114 mm[Hg] [facility] 02-03-2024 15:18-0400 Heart rate 87 /min [facility] 02-03-2024 15:18-0400 Respiratory rate 12 /min [facility] 02-03-2024 15:18-0400 Systolic blood pressure 176 mm[Hg] [facility] 12-03-2023 14:41-0500 Blood Pressure Location AGNES DARREL [facility] 12-03-2023 14:41-0500 Diastolic blood pressure 83 mm[Hg] AGNES DARREL [facility] 12-03-2023 14:41-0500 Heart rate 77 /min AGNES DARREL [facility] 12-03-2023 14:41-0500 Respiratory rate 16 /min AGNES DARREL [facility] 12-03-2023 14:41-0500 Systolic blood pressure 136 mm[Hg] AGNES DARREL [facility] 10-10-2023 14:30-0500 Body height 179.07 cm Soham Ball Other [employer] [facility] [employer] Other 10-10-2023 14:30-0500 Body mass index (BMI) [Ratio] 21.64 kg/m2 Soham Ball Other [employer] [facility] [employer] Other 10-10-2023 14:30-0500 Body weight 69.4 kg Soham Ball Other [employer] Other 10-10-2023 14:30-0500 Diastolic blood pressure 106 mm[Hg] Soham Ball Other [employer] Other 10-10-2023 14:30-0500 Respiratory rate 12 /min Soham Ball Other [employer] Other 10-10-2023 14:30-0500 Systolic blood pressure 181 mm[Hg] Soham Ball Other [employer] Other 07-11-2023 13:45-0400 Body height 179.07 cm Soham Ball Other [employer] Other 07-11-2023 13:45-0400 Body mass index (BMI) [Ratio] 21.36 kg/m2 Soham Ball Other [employer] Other 07-11-2023 13:45-0400 Body weight 68.49 kg Soham Ball Other [employer] Other 07-11-2023 13:45-0400 Diastolic blood pressure 101 mm[Hg] Soham Ball Other [employer] Other 07-11-2023 13:45-0400 Respiratory rate 12 /min Soham Ball Other [employer] Other 07-11-2023 13:45-0400 Systolic blood pressure 173 mm[Hg] Soham Ball Other [employer] Other 07-03-2023 15:00-0400 Body height 179.07 cm Soham Ball Other [employer] Other 07-03-2023 15:00-0400 Body mass index (BMI) [Ratio] 20.93 kg/m2 Soham Ball Other [employer] Other 07-03-2023 15:00-0400 Body weight 67.13 kg Soham Ball Other [employer] Other 07-03-2023 15:00-0400 Diastolic blood pressure 127 mm[Hg] Soham Ball Other [employer] Other 07-03-2023 15:00-0400 Respiratory rate 12 /min Soham Ball Other [employer] Other 07-03-2023 15:00-0400 Systolic blood pressure 203 mm[Hg] Soham Ball Other [employer] Other 06-19-2023 12:10-0400 Body height 179.07 cm Bonita Ni Other [employer] Other 06-19-2023 12:10-0400 Body mass index (BMI) [Ratio] 21.64 kg/m2 Bonita Ni Other [employer] Other 06-19-2023 12:10-0400 Body temperature 98 [degF] Bonita Ni Other [employer] Other 06-19-2023 12:10-0400 Body weight 69.4 kg Bonita Ni Other [employer] Other 06-19-2023 12:10-0400 Diastolic blood pressure 119 mm[Hg] Bonita Ni Other [employer] Other 06-19-2023 12:10-0400 Respiratory rate 18 /min Bonita Ni Other [employer] Other 06-19-2023 12:10-0400 SaO2% (BldA) [Mass fraction] 97 % Bonita Ni Other [employer] Other 06-19-2023 12:10-0400 Systolic blood pressure 185 mm[Hg] Bonita Ni Other [employer] Other 10-11-2022 15:30-0500 Body height 182.88 cm Thu Figueroa Other [employer] Other 10-11-2022 15:30-0500 Body mass index (BMI) [Ratio] 20.34 kg/m2 Thu Figueroa Other [employer] Other 10-11-2022 15:30-0500 Body temperature 97.8 [degF] Thu Figueroa Other [employer] Other 10-11-2022 15:30-0500 Body weight 68.04 kg Thu Figueroa Other [employer] Other 10-11-2022 15:30-0500 Respiratory rate 18 /min Thu Figueroa Other [employer] Other 10-11-2022 15:30-0500 SaO2% (BldA) [Mass fraction] 96 % Thu Figueroa Other [employer] Other Encounters Encounter Date Encounter Type Care Provider Facility Start: 01-24-2025 End: 01-27-2025 Evaluation and management of inpatient Tess Earl MD Work Phone: [facility] Comment on above: Acute renal failure, unspecified acute renal failure type (Primary Dx); Urinary tract infection without hematuria, site unspecified Start: 01-24-2025 End: 01-24-2025 ambulatory ATILIO BASS [facility] Start: 01-24-2025 End: 01-24-2025 [facility] Start: 01-22-2025 End: 01-22-2025 ambulatory KATHY NASH [facility] Start: 01-21-2025 End: 01-21-[address] [facility] Start: 01-21-2025 End: 01-21-2025 Subsequent [facility] Start: 12-28-2024 Non-patient / Non-visit Benjam in Ball DO Work Phone: [facility] Work Phone: Start: 12-27-2024 End: 12-27-2024 ambulatory Soham Ball DO Work Phone: [facility] Work Phone: Start: 12-27-2024 End: 12-27-2024 Departed Referred Soham [employer] DO Work Phone: [facility] Start: 12-27-2024 Non-patient / Non-visit Benjam in Ball DO Work Phone: [facility] Work Phone: Start: 11-25-2024 Non-patient / Non-visit Benjam in Ball DO Work Phone: [facility] Physician [facility] Work Phone: Start: 11-20-2024 Non-patient / Non-visit Benjam in Ball DO Work Phone: [facility] Work Phone: Start: 11-19-2024 Non-patient / Non-visit Benjam in Ball DO Work Phone: [facility] Work Phone: Start: 11-18-2024 Non-patient / Non-visit Benjam in Ball DO Work Phone: [facility] Work Phone: Start: 11-17-2024 End: 11-20-2024 Non-patient / Non-visit Soham Wilson DO Work Phone: [facility] Physician [facility] Work Phone: Start: 11-17-2024 Non-patient / Non-visit Benjam in Ball DO Work Phone: [facility] Work Phone: Start: 08-16-2024 End: 08-16-2024 ambulatory [facility] Work Phone: Start: 08-16-2024 End: 08-16-2024 Patient encounter procedure [facility] Work Phone: Start: 08-14-2024 Patient encounter procedure [facility] Start: 05-04-2024 End: 05-04-2024 ambulatory [facility] Work Phone: Start: 05-04-2024 End: 05-04-2024 Patient encounter procedure [facility] Work Phone: Start: 02-03-2024 End: 02-03-2024 Patient encounter procedure [facility] Work Phone: Start: 02-03-2024 End: 02-03-2024 ambulatory [facility] Work Phone: Start: 02-03-2024 Telephone encounter Soham Wilson [facility] Start: 12-10-2023 End: 02-03-2024 Pre-admission assessment Jeffrey MARTÍNZE [facility] Start: 12-03-2023 End: 12-04-2023 ambulatory ANDREA CRUZ Facility:[facility] Start: 12-03-2023 End: 12-03-2023 Patient encounter procedure AGNESSHAY CRUZ [facility] Start: 11-17-2023 End: 11-17-2023 ambulatory Soham Ball Other [employer] Other Start: 11-17-2023 Telephone encounter Soham Ball [facility] Start: 11-17-2023 Patient encounter procedure [facility]- Start: 10-17-2023 End: 10-17-2023 ambulatory Soham Ball Other [employer] Other Start: 10-17-2023 Telephone encounter Soham Ball [facility] Start: 10-10-2023 End: 10-10-2023 ambulatory Soham Ball Other [employer] Other Start: 10-10-2023 Office outpatient vi sit 25 minutes Soham Ball [facility] Start: 07-11-2023 End: 07-11-2023 ambulatory Soham Ball Other [employer] Other Start: 07-11-2023 Office outpatient vi sit 25 minutes Soham Ball [facility] Start: 07-10-2023 End: 07-10-2023 ambulatory Soham Ball Other [employer] Other Start: 07-10-2023 Telephone encounter Soham Ball [facility] Start: 07-03-2023 End: 07-03-2023 ambulatory Soham Ball Other [employer] Other Start: 07-03-2023 Office outpatient vi sit 25 minutes Soham Ball [facility] Start: 07-03-2023 Telephone encounter Soham Ball [facility] Start: 06-19-2023 End: 06-19-2023 ambulatory Bonita Ni Other [employer] Other Start: 06-19-2023 Office outpatient vi sit 15 minutes Bonita Ni [facility] Start: 11-01-2022 End: 11-01-2022 ambulatory [facility] Work Phone: Start: 11-01-2022 End: 11-01-2022 Patient encounter procedure [facility]ICIAN [facility] Start: 10-11-2022 End: 10-11-2022 ambulatory Thu Figueroa Other [employer] Other Start: 10-11-2022 Office outpatient vi sit 15 minutes Thu Figueroa [facility] Start: 10-09-2022 End: 10-09-2022 ambulatory Floyd Rubi Other [employer] Other Start: 10-09-2022 [facility] visit new patient Floyd Rubi [facility] Start: 10-06-2022 End: 10-07-[address] SOHAM WILSON Facility: Start: 10-23-2020 Patient encounter procedure [facility] Start: 10-19-2020 End: 10-20-2020 Patient encounter procedure [facility] Start: 10-19-2020 End: 10-19-2020 Subsequent hospital visit by physician [facility] Start: 10-16-2020 End: 10-17-2020 Patient encounter procedure [facility] Start: 10-16-2020 End: 10-16-2020 Subsequent hospital visit by physician [facility] Start: 10-13-2020 End: 10-14-2020 Patient encounter procedure [facility] Start: 10-13-2020 End: 10-13-2020 Subsequent hospital visit by physician [facility] Start: 10-12-2020 End: 10-13-2020 Patient encounter procedure [facility] Start: 10-12-2020 End: 10-12-2020 Subsequent hospital visit by physician [facility] Start: 10-11-2020 End: 10-12-2020 [facility] Start: 10-11-2020 End: 10-11-2020 Subsequent hospital visit by physician [facility] Start: 10-10-2020 End: 10-11-2020 Patient encounter procedure JEFFRY Dmitry [facility] Start: 10-10-2020 End: 10-10-2020 Subsequent hospital visit by physician [facility] Start: 10-09-2020 End: 10-10-2020 [facility] Start: 10-09-2020 End: 10-09-2020 Subsequent hospital visit by physician [facility] Start: 09-10-2020 End: 09-26-2020 Evaluation and management of inpatient ROHITH BARAHONA Facility:[facility] Procedures Date Procedure Procedure Detail Performing Clinician Start: 01-27-2025 Assay of magnesium [facility]efri [facility]ILLING CUSTOMER SERVICE REPRESENTATIVE Work Phone: Start: 01-27-2025 BASIC METABOLIC PANE L W/ REFLEX TO MG FOR LOW K [facility]atha [facility] CUSTOMER SERVICE REPRESENTATIVE Work Phone: Start: 01-26-2025 Assay of magnesium [facility]ILLING CUSTOMER SERVICE REPRESENTATIVE Work Phone: Start: 01-26-2025 BASIC METABOLIC PANE L W/ REFLEX TO MG FOR LOW K Latha A [facility] Work Phone: Start: 01-25-2025 Assay of haptoglobin quantitative [facility] Work Phone: Start: 01-25-2025 BASIC METABOLIC PANE L W/ REFLEX TO MG FOR LOW K [facility]atha [facility] Work Phone: Start: 01-25-2025 VITAMIN B12 & FOLATE Sh mo [facility] - BILLING CUSTOMER SERVICE REPRESENTATIVE Work Phone: Start: 01-24-2025 Culture bacterial bl ood aerobic w/id isolates Latha Acuña [facility] Work Phone: Start: 01-24-2025 CULTURE, BLOOD 1 Joseph y Domenico Redd-Fariha STRINGED INSTRUMENT ASSEMBLER - BILLING CUSTOMER SERVICE REPRESENTATIVE Work Phone: Start: 01-24-2025 Ct abdomen & pelvis w/o contrast material Tess Earl MD Work Phone: Start: 01-24-2025 Culture bacterial quanttative colony count urine Tess Earl MD Work Phone: Start: 01-24-2025 Urnls dip stick/tabl et rgnt auto w/o microscopy Tess Earl MD Work Phone: Start: 01-24-2025 Comprehensive metabo lic panel Tess Earl MD Work Phone: Start: 01-24-2025 Ecg routine ecg w/le ast 12 lds i&r only Tess Earl MD Work Phone: Start: 01-24-2025 Comprehensive metabo lic panel Atilio Bass MD Work Phone: Start: 01-21-2025 Basic metabolic pane l calcium total Arnulfo Rooney MD Work Phone: Start: 01-21-2025 Lipid panel Arnulfo finney MD Work Phone: Start: 11-01-2022 Plain X-ray of right wrist PHYSICIAN NO FAMILY Start: 03-08-2021 Transurethral water vapor ablation of prostate AGNES CRUZ Start: 10-23-2020 HEMOGLOBIN AND HEMAT OCRIT, BLOOD [...] EXCISION OF DUODENUM , ENDO, DIAGN GHADA EDGE Start: 09-25-2020 EXCISION OF ILEOCECA L VALVE, ENDO, DIAGN GHADA EDGE Start: 09-25-2020 EXCISION OF SIGMOID COLON, ENDO, DIAGN GHADA EDGE Start: 09-25-2020 EXCISION OF STOMACH, ENDO, DIAGN GHADA EDGE Start: 09-21-2020 Antibody screen ROHITH LOFTON Comment on above: Performed By: #### [id number] ####[facility].[address] Start: 09-14-2020 Antibody screen ROHITH LOFTON Comment on above: Performed By: #### [id number] #### [facility] [address] [place] [address], [facility] Start: 09-14-2020 TRANSFUSE NONAUT RED BLOOD CELLS IN PERIPH VEIN, PERC ROHITH BARAHONA Start: 09-11-2020 [object Object] ROHITH LOFTON Comment on above: Order Comment: Yes: Add to Previous draw if able Performed By: #### [id number] ####[facility] [place] [address], [facility] Extraction of cataract SUSANNE CRUZ Plan of Treatment Date Care Activity Detail Author Start: 02-14-2025 End: 02-14-2025 Patient encounter procedure 02/14/2025 10:15 AM EDT Office Visit [facility] [address] [place] [id number] Brennen Sparks, PA-C [address] [place] [address] [address] [place] [address] follow up [facility] Comment on above: follow up hospital Start: 02-03-2025 End: 01-27-2026 Basic metabolic 2000 panel - Serum or Plasma Basic Metabolic Panel Lab Routine Acute renal failure, unspecified acute renal failure type Expected: 02/03/2025, Expires: 01/27/2026 [facility] Comment on above: Expected: 02/03/2025 , Expires: 01/27/2026 Start: 02-03-2025 End: 01-27-2026 CBC W Auto Differential panel - Blood CBC with Auto Differential Lab Routine Acute renal failure, unspecified acute renal failure type Expected: 02/03/2025, Expires: 01/27/2026 [facility] Comment on above: Expected: 02/03/2025 , Expires: 01/27/2026 Start: 01-22-2025 Annual Wellness Visi t (Medicare) Annual Wellness Visit (Medicare) [facility] Start: 12-27-2024 Urine culture [facility] Start: 12-27-2024 Bacteria identified in Urine by Culture Urine Culture [facility] Start: 07-04-2024 COVID-19 Vaccine ( season) COVID-19 Vaccine ( season) [facility] Start: 06-03-2024 Influenza vaccination Flu vaccine (# 1) [facility] Start: 10-26-2020 Hospital Encounter 10/26/2020 Hospital Encounter [...] 07-04-2020 Influenza vaccination Flu vaccine (# 1) [facility] [place] Start: 01-18-2020 Respiratory Syncytia l Virus (RSV) or age 60 yrs+ (1 - 1-dose 75+ series) Respiratory Syncytial Virus (RSV) or age 60 yrs+ (1 - 1-dose 75+ series) [facility] Start: 1995 Pneumococcal 50+ yea rs Vaccine (1 of 1 - PCV) Pneumococcal 50+ years Vaccine (1 of 1 - PCV) [facility] [employer] Start: 1995 Shingles vaccine (1 of 2) Shingles vaccine (1 of 2) [facility] Start: 01-18-1964 DTaP/Tdap/Td vaccine (1 - Tdap) DTaP/Tdap/Td vaccine (1 - Tdap) [facility] Start: 1957 Depression Monitoring Depression Mon itoring [facility] End: 01-29-2025 Basic Metabolic Panel w/ Reflex to MG Basic Metabolic Panel w/ Reflex to MG Lab Routine Daily for 5 Days starting 01/25/2025 until 01/29/2025, 3 completed [facility] Comment on above: Daily for 5 Days sta rting 01/25/2025 until 01/29/2025, 3 completed End: 01-29-2025 CBC W Auto Differential panel - Blood CBC auto differential Lab Routine Daily for 5 Days starting 01/25/2025 until 01/29/2025, 3 completed [facility] Comment on above: Daily for 5 Days sta rting 01/25/2025 until 01/29/2025, 3 completed Comprehensive metabo lic 2000 panel - Serum or Plasma [facility] Culture, Blood 1 Culture, Blood 1 Microbiology STAT 01/24/2025 10:03 PM EDT [facility] Culture, Blood 2 Culture, Blood 2 Microbiology STAT 01/24/2025 10:09 PM EDT [facility] Culture, Urine Culture, Urine Microbiology Routine 01/24/2025 12:54 PM EDT [facility] Immunizations Immunization Date Immunization Notes Care Provider Maggie mar 07-11-2023 influenza, high dose seasonal, preservative-free Soham Wilson Other [employer] Other 07-11-2023 Prevnar 20 Soham Wilson Other [facility] 07-11-2023 influenza virus vaccine, unspecified formulation [facility] Payers Date Payer Category Payer Self-pay 2023 Unknown [id number] 2023 Unknown [id number] 2023 Medicare [id number] 1959 Self-pay [id number] 1945 Unknown [id number] [id number] [id number] 1945 Unknown [id number] 2.16.84 [id number] 1945 Unknown [id number] 2.16.8 [id number] 1945 Unknown [id number] [id number] [id number] 1945 Unknown [id number] 2.16.8 [id number] Unknown [id number] 2.16.8 [id number] Unknown [id number] 2.16.8 [id number] Social History Date Type Detail Facility [facility] smoked [facility] [place] [place] Start: 1945 Sex Assigned At Not on file M [place], [place] Start: 01-24-2025 Sex Assigned At F [facility] Start: 1945 Sex Assigned At Male F [facility] Start: 04-17-2021 End: 2024 Tobacco smoking status Ex-smoker (finding) [facility] Start: 09-10-2020 End: 12-29-2024 Sex Male (finding) [facility] Tobacco smoking stat [facility] Tobacco smoking consumption unknown [employer] Start: 01-24-2025 Tobacco smoking stat [facility] Never smoked tobacco [employer] Start: 01-24-2025 Tobacco use and exposure Smokeless tobacco non-user [employer] Start: 01-24-2025 Alcoholic beverage intake Ex-drinker (finding) [employer] Start: 01-24-2025 History of Social function [employer] Has the [employer], [employer], [employer], or water [employer] threatened to shut off services in your home in past 12Mo No [employer] (I/We) worried [facility] (my/our) food would run out before (I/we) got money to buy more. Patient unable to answer [employer] Functional Status Date Assessment Result Facility 12-03-2023 Functional Status N/A [facility] Clinical Notes 10-09-2022 to 01-27-2025 Taisha Bonilla RN - 01/27/2025 5:01 PM Taisha Mattson RN - 01/27/2025 4:06 PM Michaela Boateng PTA - 01/27/2025 2:09 PM Michaela Boateng PTA - 01/27/2025 10:02 AM EDTDischarge Instr - SUNIL Note Date & Type Note Facility 01-27-2025 History of Presen t illness Narrative Pt leaving via [facility] at this time. Report called to [place] at [facility] at this time. Denies any further questions at this time. Call back number given. [facility] ETA 1700. Physical Therapy Facility/Department: [facility] Daily Treatment Note NAME: Deniz Gómez : 1945 Date of Service: 01/27/2025 Discharge Recommendations: Continue to assess pending progress, Subacute/Prison Facility Patient Diagnosis(es): The primary encounter diagnosis was Acute renal failure, unspecified acute renal failure type. A diagnosis of Urinary tract infection without hematuria, site unspecified was also pertinent to this visit. Assessment Assessment: Bed mobility: Max A x2. Tranfers: CGA/Min A x2. Gait 5ftx1 with Min A x2 for safety, noted forward flexed posture with slow shuffled gait. Pt. began to climb into bed and abdandon walker prior to getting closer to bed for safe transfer. Manual and verbal cues given, pt. unable to follow and required Max A for safety to get into bed. Activity Tolerance: Treatment limited secondary to decreased cognition;Treatment limited secondary to agitation Plan Physical Therapy Plan General Plan: 2 times a day 7 days a week Specific Instructions for Next Treatment: once per day on weekends and holidays Current Treatment Recommendations: Strengthening;ROM;Balance training;Functional mobility training;Transfer training;Endurance training;Gait training;Stair training;Neuromuscular re-education;Pain management;Home exercise program;Therapeutic activities Restrictions Restrictions/Precautions Restrictions/Precautions: Fall Risk, General Precautions Subjective Subjective Subjective: Rn asking PT to help assist pt. back to bed. Pt. aggitated after dropping piece of food on floor. Pain: denies Objective Bed Mobility Training Bed Mobility Training: Yes Overall Level of Assistance: Partial/Moderate assistance;Substantial/Maximal assistance;2 Person assistance Interventions: Verbal cues;Safety awareness training;Manual cues Rolling: Partial/Moderate assistance;2 Person assistance Supine to Sit: Partial/Moderate assistance;Substantial/Maximal assistance;2 Person assistance Sit to Supine: Partial/Moderate assistance;2 Person assistance Scooting: Partial/Moderate assistance;Substantial/Maximal assistance;2 Person assistance Transfer Training Transfer Training: Yes Overall Level of Assistance: 2 Person assistance;Minimal assistance;Contact guard assistance Interventions: Verbal cues Sit to Stand: Minimal assistance;2 Person assistance;Contact guard assistance Stand to Sit: Contact guard assistance;Minimal assistance;2 Person assistance Gait Gait Training: Yes Overall Level of Assistance: Minimal assistance;2 Person assistance;Contact guard assistance Distance (ft): 5 Feet Assistive Device: Walker, rolling;Gait belt Interventions: Verbal cues Speed/Lakshmi: Slow;Shuffled Step Length: Left shortened;Right shortened Safety Devices Type of Devices: All fall risk precautions in place;Call light within reach;Nurse notified;Left in bed;Bed alarm in place Goals Short Term Goals Time Frame for Short Term Goals: 20 days Short Term Goal 1: Pt to tolerate 20 minutes of ther ex to facilitate return to PLOF. Short Term Goal 2: Pt to ambulate 50' with FWW and CGA to increase ambulatory capacity for d/c Short Term Goal 3: Pt to complete transfers with FWW and SBA to demonstrate increased independacne for safety with d/c. Patient Goals Patient Goals : Pt goal to return home Education Patient Education Education Given To: Patient Education Provided: Transfer Training;Fall Prevention Strategies Education Provided Comments: education on working with therapy and getting up to chair. Education Method: Verbal Barriers to Learning: Cognition Education Outcome: Continued education needed Therapy Time Individual Concurrent Group Co-treatment Time In 1206 Time Out 1221 Minutes 15 Michaela Munoz PTA Cosigned by Ellie Jeff PT at 01/27/2025 4:06 PM EDT Physical Therapy Facility/Department: [facility] Daily Treatment Note NAME: Deniz Gómez : 1945 Date of Service: 01/27/2025 Discharge Recommendations: Continue to assess pending progress, Subacute/Prison Facility Patient Diagnosis(es): The primary encounter diagnosis was Acute renal failure, unspecified acute renal failure type. A diagnosis of Urinary tract infection without hematuria, site unspecified was also pertinent to this visit. Assessment Assessment: Bed mobility: Max A x2. Tranfers: CGA/Min A x2. Gait 5ftx1 with Min A x2 for safety, noted forward flexed posture with slow shuffled gait. Pt. reluctant to get up to chair despite education and encouragagment from staff and family, pt. did become agreeable but noted to bed aggitated until up to chair. Pt. did become verbally aggressive during treatment time. Activity Tolerance: Treatment limited secondary to decreased cognition;Treatment limited secondary to agitation Plan Physical Therapy Plan General Plan: 2 times a day 7 days a week Specific Instructions for Next Treatment: once per day on weekends and holidays Current Treatment Recommendations: Strengthening;ROM;Balance training;Functional mobility training;Transfer training;Endurance training;Gait training;Stair training;Neuromuscular re-education;Pain management;Home exercise program;Therapeutic activities Restrictions Restrictions/Precautions Restrictions/Precautions: Fall Risk, General Precautions Subjective Subjective Subjective: PT. in bed upon arrival with son present and RN in room, reluctant but with encouragaement agreeable to get up to chair. Pain: denies Objective Bed Mobility Training Bed Mobility Training: Yes Overall Level of Assistance: Partial/Moderate assistance;Substantial/Maximal assistance;2 Person assistance Rolling: Partial/Moderate assistance;2 Person assistance Supine to Sit: Partial/Moderate assistance;Substantial/Maximal assistance;2 Person assistance Scooting: Partial/Moderate assistance;Substantial/Maximal assistance;2 Person assistance Transfer Training Transfer Training: Yes Overall Level of Assistance: 2 Person assistance;Minimal assistance;Contact guard assistance Interventions: Verbal cues Sit to Stand: Minimal assistance;2 Person assistance;Contact guard assistance Stand to Sit: Contact guard assistance;Minimal assistance;2 Person assistance Gait Gait Training: Yes Overall Level of Assistance: Minimal assistance;2 Person assistance;Contact guard assistance Distance (ft): 5 Feet Assistive Device: Walker, rolling;Gait belt Interventions: Verbal cues Speed/Lakshmi: Slow;Shuffled Step Length: Left shortened;Right shortened Safety Devices Type of Devices: All fall risk precautions in place;Call light within reach;Chair alarm in place;Left in chair;Nurse notified Goals Short Term Goals Time Frame for Short Term Goals: 20 days Short Term Goal 1: Pt to tolerate 20 minutes of ther ex to facilitate return to PLOF. Short Term Goal 2: Pt to ambulate 50' with FWW and CGA to increase ambulatory capacity for d/c Short Term Goal 3: Pt to complete transfers with FWW and SBA to demonstrate increased independacne for safety with d/c. Patient Goals Patient Goals : Pt goal to return home Education Patient Education Education Given To: Patient Education Provided: Transfer Training Education Provided Comments: education on working with therapy and getting up to chair. Education Method: Verbal Barriers to Learning: Cognition Education Outcome: Verbalized understanding;Continued education needed Therapy Time Individual Concurrent Group Co-treatment Time In 0847 Time Out 0912 Minutes 25 Michaela Munoz PTA Cosigned by Ellie Jeff PT at 01/27/2025 10:09 AM EDT Modeling Agency Manager to bedside to complete morning assessment. Upon entry to room, pt laying in bed, respirations even and unlabored while on room air. Pt alert to self only at this time. Vitals obtained and assessment completed, see flow sheet for details. Pt denies needs from residential mortgage underwriter at this time. Call light in reach. Bed alarm active. Care ongoing. Patient attempted to climb out of bed again with both legs thrown over the railing. He did let residential mortgage underwriter get him repositioned back in bed and tucked in. Patient was redirected more easily this time. Haldol was given to patient due to patient screaming and pulling on his diaz and attempting to throw himself out of bed. When residential mortgage underwriter walked in the room, Patient had both legs over the railing any was attempting to get up to drive somewhere. Modeling Agency Manager attempted to reorient patient and did get him to calm down enough to get him into bed and tucked in. Diaz remains patent and draining. Call light and bedside table remain within reach. Care ongoing. Patient attempted to throw himself out of bed because he was looking for the keys his son lost. Patient was grumbling and swearing but was able to be redirected and assisted back into the bed. Patient was agreeable to take his benadryl at this time and allowed residential mortgage underwriter to put a new stat lock on his leg where he'd pulled the other off. Diaz remains patent and draining. Patient's brief is clean. Modeling Agency Manager will attempt to do diaz care once patient has settled down tonight. Per Eleni at [facility], Patient can return there following this hospitalization. [place] would like for residential mortgage underwriter to inquire about memory care units that son might be interested in Patient transferring to when his Medicaid is established. Met with son and several referrals made for consideration near where son lives. [facility] [employer] following and will assist with return placement to [facility] at discharge. LAUREANO Alonso 01/26/2025 [facility] Inpatient/Observation/Outpatien t Rehabilitation Date: 01/26/2025 Patient Name: Deniz Gómez [x] Inpatient Acute/Observation [] Outpatient : 1945 [x] Pt refused/declined therapy at this time due to: 2 attempts made, pt. declined both attempts, RN aware. [] Pt cancelled due to: [] No Reason Given [] Sick/ill [] Other: [] Evaluation held by RN/Provider/Physical Therapist due to: [] High Heart Rate [] High Blood Pressure [] Orthopedic Consult [] Hgb < 7 [] Other: [] Pt ordered brace per physician request: [] Proper fit will be completed and education for wearing/skin checks [] Pt does not require skilled services due to: Therapist/Acid Retort Operator will attempt to see this patient, at our earliest opportunity. Michaela Munoz, COATING MANAGER Date: 01/26/2025 Cosigned by Jun Potter PT at 01/26/2025 3:39 PM EDT Physician Progress Note PATIENT: DENIZ GÓMEZ CSN #: [id number] : 1945 ADMIT DATE: 01/24/2025 11:32 AM DISCH DATE: RESPONDING PROVIDER #: LATHA Patel CNP QUERY TEXT: Pt admitted with UTI/TJ. Pt noted to have AMS/ confusion. If possible, please document in the progress notes and discharge summary if you are evaluating and / or treating any of the following: The medical record reflects the following: Risk Factors: 80 yr old, MDD, CKD Clinical Indicators: Nursing documenting- Disoriented to place, time and situation, Son said patient not normally confused, pt with UTI and TJ. Treatment: IV ATBs, lab monitoring, imaging Options provided: -- Metabolic encephalopathy -- Other - I will add my own diagnosis -- Disagree - Not applicable / Not valid -- Disagree - Clinically unable to determine / Unknown -- Refer to Clinical Documentation Reviewer PROVIDER RESPONSE TEXT: This patient has metabolic encephalopathy. Query created by: Valentina Adames on 01/26/2025 9:43 AM Electronically signed by: LATHA Patel CNP 01/26/2025 2:50 PM Physical Therapy Facility/Department: [facility] Daily Treatment Note NAME: Deniz Gómez : 1945 Date of Service: 01/26/2025 Discharge Recommendations: Continue to assess pending progress, Subacute/Prison Facility Patient Diagnosis(es): The primary encounter diagnosis was Acute renal failure, unspecified acute renal failure type. A diagnosis of Urinary tract infection without hematuria, site unspecified was also pertinent to this visit. Assessment Assessment: Bed mobility: Max A x2. Tranfers: Min A x2. Gait 5ftx1 with Min A x2 for safety, pt. begins to descend to chair prior to copmleting gait and transfer to chair. Noted forward flexed posture with slow shuffled gait. Activity Tolerance: Patient tolerated treatment well;Patient limited by endurance;Patient limited by fatigue Plan Physical Therapy Plan General Plan: 2 times a day 7 days a week Specific Instructions for Next Treatment: once per day on weekends and holidays Current Treatment Recommendations: Strengthening;ROM;Balance training;Functional mobility training;Transfer training;Endurance training;Gait training;Stair training;Neuromuscular re-education;Pain management;Home exercise program;Therapeutic activities Restrictions Restrictions/Precautions Restrictions/Precautions: Fall Risk, General Precautions Subjective Subjective Subjective: Pt. inbed upon arrival, easy to wake and agreeable to work with therapy to get to chair for breakfast. Pain: denies Objective Bed Mobility Training Bed Mobility Training: Yes Overall Level of Assistance: Partial/Moderate assistance;Substantial/Maximal assistance;2 Person assistance Rolling: Partial/Moderate assistance;2 Person assistance Supine to Sit: Partial/Moderate assistance;Substantial/Maximal assistance;2 Person assistance Scooting: Partial/Moderate assistance;Substantial/Maximal assistance;2 Person assistance Transfer Training Transfer Training: Yes Overall Level of Assistance: 2 Person assistance;Minimal assistance Interventions: Verbal cues Sit to Stand: Minimal assistance;2 Person assistance Stand to Sit: Minimal assistance;2 Person assistance Gait Gait Training: Yes Overall Level of Assistance: Minimal assistance;2 Person assistance Distance (ft): 5 Feet Assistive Device: Walker, rolling;Gait belt Interventions: Verbal cues Speed/Lakshmi: Slow;Shuffled Step Length: Left shortened;Right shortened Safety Devices Type of Devices: Chair alarm in place;Call light within reach;All fall risk precautions in place;Left in chair Goals Short Term Goals Time Frame for Short Term Goals: 20 days Short Term Goal 1: Pt to tolerate 20 minutes of ther ex to facilitate return to PLOF. Short Term Goal 2: Pt to ambulate 50' with FWW and CGA to increase ambulatory capacity for d/c Short Term Goal 3: Pt to complete transfers with FWW and SBA to demonstrate increased independacne for safety with d/c. Patient Goals Patient Goals : Pt goal to return home Education Patient Education Education Given To: Patient Education Provided: Transfer Training Education Method: Verbal Barriers to Learning: None Education Outcome: Verbalized understanding;Continued education needed Therapy Time Individual Concurrent Group Co-treatment Time In 0931 Time Out 0946 Minutes 15 Michaela Munoz PTA Cosigned by Jun Potter, PT at 01/26/2025 12:[address] Ramos at bedside via video visit. [facility] [phone] Nephrology progress note 01/26/2025, 11:02 AM Pt Name: Deniz Gómez Birthdate: 1945 Admit Date: 01/24/2025 11:32 AM Primary Care Physician: No primary care provider on file. Room number 0303/0303-01 Patient was evaluated through a synchronous (real-time) audio-video encounter. The patient (or guardian if applicable) is aware that this is a billable service, which includes applicable co-pays. This virtual visit was conducted with patient's (and/or legal guardian's consent). Patient identification was verified, and a caregiver was present when appropriate. The patient was located at home in a state where the provider was licensed to provide care Virtual visit was done to address concerns as mentioned above. Due to this being a TeleHealth encounter evaluation of the following organ systems was limited: EENT/Resp/CV/GI//MS/Neuro/Ski n/Lymph Services were provided through a video synchronous discussion virtually to substitute for in-person visit. Telehealth service was provided with the patient at [facility] and myself the physician in my office and RN who has initiated the visit. TELEHEALTH EVALUATION -- Audio/Visual Patient's Location: Hospital Room # 303, [facility] Physician's (myself) Location: [facility] Patient's nurse: Present Chief Complaint: Nephrology following for TJ/CKD Subjective: Patient seen and examined No chest pain or shortness of breath Poor historian Sitting at his bedside chair Objective: 24HR INTAKE/OUTPUT: Intake/Output Summary (Last 24 hours) at 01/26/2025 1102 Last data filed at 01/26/2025 1021 Gross per 24 hour Intake 4385.62 ml Output 3900 ml Net 485.62 ml I/O last 3 completed shifts: In: 3513.7 [P.O.:1610; I.V.:1903.7] Out: 4450 [Urine:4450] I/O this shift: In: 2482.5 [P.O.:670; I.V.:1812.5] Out: 975 [Urine:975] Admission weight: 79.4 kg (175 lb) Wt Readings from Last 3 Encounters: 01/26/25 63.3 kg (139 lb 9.6 oz) Body mass index is 19.47 kg/m . Physical examination VITALS: Vitals: 01/25/25 1457 01/25/25 2150 01/26/25 0310 01/26/25 0715 BP: 126/85 (!) 140/84 (!) 164/85 Pulse: 78 74 69 Resp: 17 18 16 Temp: 98.9 F (37.2 C) 98.5 F (36.9 C) TempSrc: Temporal Temporal Temporal SpO2: 97% 99% 99% Weight: 63.3 kg (139 lb 9.6 oz) Height: Constitutional and General Appearance: alert and cooperative, appears comfortable, no apparent distress Lungs: no use of accessory muscles or labored breathing noted, Respiratory effort observed to be normal Neuro: no slurred speech, no facial drooping Psychiatric: Not agitated Mental status: Alert and awake Due to this being a TeleHealth encounter, evaluation of the following organ systems is limited: EENT/Resp/CV/GI//MS/Neuro/Ski n/Lymph Lab Data CBC: Recent Labs 01/24/25 1251 01/25/25 0545 01/26/25 0530 WBC 7.8 5.9 6.0 HGB 9.2* 8.3* 8.2* HCT 28.9* 26.1* 25.8* PLT 547* 511* 487* BMP: Recent Labs 01/24/25 1251 01/25/25 0545 01/26/25 0530 NA 139 143 141 K 3.7 3.8 3.5* CL 103 110* 109* CO2 22 21 21 BUN 80* 69* 44* CREATININE 5.4* 4.3* 3.2* GLUCOSE 118* 99 105* CALCIUM 9.1 8.4* 8.2* MG -- -- 1.8 Hepatic: Recent Labs 01/24/25 0710 01/24/25 1251 AST 21 20 ALT 14 16 BILITOT 0.3 0.3 ALKPHOS 98 94 Meds: Infusion: sodium chloride 75 mL/hr at 01/26/25 0817 sodium chloride Meds: ferrous sulfate 325 mg Oral Daily with breakfast heparin (porcine) 5,000 Units SubCUTAneous BID levETIRAcetam 500 mg Oral Nightly epoetin cristino-epbx 25 Units/kg SubCUTAneous Once per day on Friday mirtazapine 15 mg Oral Nightly tamsulosin 0.4 mg Oral Daily carvedilol 12.5 mg Oral BID WC QUEtiapine 25 mg Oral BID sodium chloride flush 5-40 mL IntraVENous 2 times per day cefTRIAXone (ROCEPHIN) IV 1,000 mg IntraVENous Q24H docusate sodium 100 mg Oral BID senna 1 tablet Oral Nightly Meds prn: diphenhydrAMINE, sodium chloride flush, sodium chloride, ondansetron OR ondansetron, acetaminophen OR acetaminophen, polyethylene glycol Additional Labs: Diagnostics: Old tests reviewed. Creatinine 2.10 October 2020 Creatinine 3.4 January 21, 2025 Admission creatinine 5.6 Impression and Plan: TJ on ? CKD Patient serum creatinine was 2.8 back in 2019. His serum creatinine was 3.4 on 21 January 2025. Uncertain if this is his baseline. Presented with a creatinine of 5.6 in setting of bilateral hydronephrosis/hydroureter/blad ayde outlet obstruction and prostatomegaly. -Underwent Diaz catheter placement - agree with reducing IVF - creat is improving - urology input noted - no indication for HD at this time - potassium was replaced 2. Bladder outlet obstruction: keep diaz in per urology 3. Bilateral hydronephrosis 4. Enlarged prostate 5. Azotemia. Improving D/W pt and RN Vitor Ramos MD [facility] Progress Note SUBJECTIVE: Patient seen for f/u of Acute kidney injury superimposed on CKD. He resting in bed calm stated I am in a good mood right now . Converses appropriately. Stated normally he walks well. ROS: Constitutional: negative for fevers, and negative for chills. Respiratory: negative for shortness of breath, negative for cough, and negative for wheezing Cardiovascular: negative for chest pain, and negative for palpitations Gastrointestinal: negative for abdominal pain, negative for nausea,negative for vomiting, negative for diarrhea, and negative for constipation All other systems were reviewed with the patient and are negative unless otherwise stated in HPI OBJECTIVE: Vitals: Vitals: 01/26/25 0715 BP: (!) 164/85 Pulse: 69 Resp: 16 Temp: SpO2: 99% Weight - Scale: 63.3 kg (139 lb 9.6 oz) Height: 180.3 cm (5' 11 ) Weight Wt Readings from Last 3 Encounters: 01/26/25 63.3 kg (139 lb 9.6 oz) Body mass index is 19.47 kg/m . 24HR INTAKE/OUTPUT: Intake/Output Summary (Last 24 hours) at 01/26/2025 0740 Last data filed at 01/26/2025 0732 Gross per 24 hour Intake 4625.62 ml Output 3725 ml Net 900.62 ml --- Exam: GEN: Awake, alert and confused. EYES: EOMI, pupils equal NECK: Supple. No lymphadenopathy. No carotid bruit CVS: regular rate and rhythm, no audible murmur PULM: CTA, no wheezes, rales or rhonchi, no acute respiratory distress ABD: Bowels sounds normal. Abdomen is soft. No distention. no tenderness to palpation. EXT: no edema bilaterally . No calf tenderness. NEURO: Moves all extremities. Motor and sensory are grossly intact SKIN: No rashes. No skin lesions. --- Diagnostic Data: Complete Blood Count: Recent Labs 01/24/25 1251 01/25/25 0545 01/26/25 0530 WBC 7.8 5.9 6.0 RBC 3.42* 3.03* 2.99* HGB 9.2* 8.3* 8.2* HCT 28.9* 26.1* 25.8* MCV 84.5 86.1 86.3 MCH 26.9 27.4 27.4 MCHC 31.8 31.8 31.8 RDW 16.1* 16.0* 15.9* PLT 547* 511* 487* MPV 10.6 10.9 10.7 Last 3 Blood Glucose: Recent Labs 01/24/25 0710 01/24/25 1251 01/25/25 0545 01/26/25 0530 GLUCOSE 107* 118* 99 105* Comprehensive Metabolic Profile: Recent Labs 01/24/25 0710 01/24/25 1251 01/25/25 0545 01/26/25 0530 NA 140 139 143 141 K 3.7 3.7 3.8 3.5* CL 105 103 110* 109* CO2 20 22 21 21 BUN 85* 80* 69* 44* CREATININE 5.6* 5.4* 4.3* 3.2* GLUCOSE 107* 118* 99 105* CALCIUM 8.8 9.1 8.4* 8.2* BILITOT 0.3 0.3 -- -- ALKPHOS 98 94 -- -- AST 21 20 -- -- ALT 14 16 -- -- Urinalysis: Lab Results Component Value Date/Time NITRU POSITIVE 01/24/2025 12:54 PM COLORU Yellow 01/24/2025 12:54 PM PHUR 7.5 01/24/2025 12:54 PM WBCUA 10 TO 20 01/24/2025 12:54 PM RBCUA 0 TO 2 01/24/2025 12:54 PM BACTERIA 2+ 01/24/2025 12:54 PM LEUKOCYTESUR MODERATE 01/24/2025 12:54 PM UROBILINOGEN Normal 01/24/2025 12:54 PM BILIRUBINUR NEGATIVE 01/24/2025 12:54 PM GLUCOSEU NEGATIVE 01/24/2025 12:54 PM KETUA NEGATIVE 01/24/2025 12:54 PM AMORPHOUS 2+ 01/22/2025 04:45 PM HgBA1c: No results found for: LABA1C Lactic Acid: No results found for: LACTA Troponin: No results for input(s): TROPONINI in the last 72 hours. CRP: No results for input(s): CRP in the last 72 hours. Radiology/Imaging: CT ABDOMEN PELVIS WO CONTRAST Additional Contrast? None Final Result 1. Severely distended bladder extending to the level of the umbilicus with moderate bilateral hydronephrosis and hydroureter which is likely related. No ureteral stone is identified. The findings suggest bladder outlet obstruction. 2. Mild prostatomegaly. 3. Moderate amount of stool in the rectum with mild to moderate rectal distension. ASSESSMENT / PLAN: MEDICAL DECISION MAKING: Primary Problem(s): Acute kidney injury superimposed on CKD Differential diagnoses: Bladder outlet obstruction, constipation Condition is a chronic illness with exacerbation, progression or side effects of treatment Condition is stable Treatment plan: Appreciate Nephrology - ?? Uremic Appreciate Urology Monitor labs replace electrolytes Strict I/O Continue Diaz catheter Imaging: no further imaging studies ordered today Medications: IV fluids Continue Flomax Continue Colace 100 mg twice daily Continue senna nightly Medication Monitoring / High Risk Medications: none UTI Condition is a chronic stable condition Treatment plan: Urine culture-pending BC x 2 now (not collected prior to antibiotics initiated) Imaging: no further imaging studies ordered today Medications: Continue IV Rocephin Continue IV fluids Anemia Condition is a chronic stable condition Treatment plan: Iron, TIBC, Retic Ct, folate, B12, Haptoglobin Imaging: no further imaging studies ordered today Medications: Continue Retacrit Start FESO Major depressive disorder Condition is a chronic stable condition Treatment plan: Continue current treatment Imaging: no further imaging studies ordered today Medications: Continue Seroquel, Remeron Nutrition status: Well developed, well nourished with no malnutrition Asthma Educator consult initiated I/O Daily weights MALNUTRITION ASSESSMENT AND PLAN The following was documented by the Dietitian: Malnutrition Assessment Context of Malnutrition: Acute Illness (01/25/25 1150) Acute Illness - Energy Intake : 50% or less of estimated energy requirements for 5 or more days (3 weeks) (01/25/25 1150) Acute Illness - Weight Loss : Mild weight loss (01/25/25 115) Acute Illness - Body Fat Loss: Unable to assess (too covered) (01/25/25 1150) Acute Illness - Muscle Mass Loss: Unable to assess (too covered) (01/25/25 115) Acute Illness - Fluid Accumulation : No fluid accumulation (01/25/251149) Acute Illness - Instrument Setter Strength: Not Performed (01/25/251149) Acute Illness - Malnutrition Score: 7 (01/25/251149) Malnutrition Status: At risk for malnutrition (01/25/251149) I agree with the dietitian's malnutrition assessment. Medical Nutrition Therapy: continue current nutrition therapy, oral diet, and oral supplements Hospital Prophylaxis: DVT: heparin Stress Ulcer: na Disposition: Shared decision making: All test results, treatment options and disposition options were discussed with the patient and family members today Social determinants of health that may impact management: none Code status: DNR-CCA Disposition: Discharge plan is pending [facility] Advanced Care Planning documentation: [x] I have confirmed that the patient's Advance Care Plan is present, Code Status is documented, or surrogate decision maker is listed in the patient's medical record [If yes , STOP HERE] [] The patient's Advance Care Plan is NOT present because: [] I confirmed today that the patient does not wish or was not able to name a surrogate decision maker or provide and advance care plan. [] Hospice care is currently being provided or has been provided within the calendar year. [] I did NOT confirm today the presence of an Advance Care Plan or surrogate decision maker documented within the patient's medical record. [DOES NOT SATISFY [facility] PERFORMANCE] PAKO Agrawal CNP , PAKO COMPOSITION WEATHERBOARD INSTALLER-C Hospitalist Medicine 01/26/2025, 7:40 AM Cosigned by Kenn Moya MD at 01/26/2025 3:29 PM EDT Vitals and assessment completed at this time as charted. Pt laying in bed. He denies pain. Oriented to self and place only. Pt is angry and has short outburst of yelling stating he wants to go home. Not aggressive and follows commands. Diaz in place, patent. Urine is malodorous, yellow, cloudy. Fall precautions in place. Call light within reach. Physician Progress Note PATIENT: DENIZ GÓMEZ CSN #: [id number] : 1945 ADMIT DATE: 01/24/2025 11:32 AM DISCH DATE: RESPONDING PROVIDER #: LATHA Patel CNP QUERY TEXT: Stage of Chronic Kidney Disease: Please provide further specificity, if known. Clinical indicators include: ckd, creatinine, bun Options provided: -- Chronic kidney disease stage 1 -- Chronic kidney disease stage 2 -- Chronic kidney disease stage 3 -- Chronic kidney disease stage 3a -- Chronic kidney disease stage 3b -- Chronic kidney disease stage 4 -- Chronic kidney disease stage 5 -- Chronic kidney disease stage 5, requiring dialysis -- End stage renal disease -- Other - I will add my own diagnosis -- Disagree - Not applicable / Not valid -- Disagree - Clinically Unable to determine / Unknown PROVIDER RESPONSE TEXT: Per Nephrology Impression and Plan: TJ on ? CKD Patient serum creatinine was 2.8 back in 2019. His serum creatinine was 3.4 on 21 January 2025. Uncertain if this is his baseline. Presented with a creatinine of 5.6 in setting of bilateral hydronephrosis/hydroureter/blad ayde outlet obstruction and prostatomegaly. Electronically signed by: LATHA Patel CNP 01/26/2025 6:10 AM Patient resting with eyes closed at this time. Modeling Agency Manager assisted with PT up to the chair at this time. Pt x2 assist with walker. Pt become agitated but was calmed by residential mortgage underwriter and agreeable to continue treatment. Met with Patient and Patient's son/GENA Rodriguez, claudia p.m. to discuss discharge planning. Patient is an 80 year old white male, admitted from [facility] where he had been receiving treatment for his depression since last week (01/20/2025). Patient is alert and cooperative during this assessment. Allows son to respond to most assessment questions being asked. Son would like for Patient to return to [facility] following this hospitalization and not have to go back to [facility]. Spoke with Sweetie at [facility] and Phoebe at [facility] as well. Patient has resided at [facility] since mid November. Son states that he no longer has a home to go back to and he is paying out of his own pocket to save the bed at [facility]. Patient able to transfer to wheelchair but can ambulate with a gait belt when working with therapy. Episode of confusion and suicidal/homocidal ideation documented in his recent past. PCP is Dr. Morgan Wilson and he sees Patient at the [facility]. Patient has Medicare with a supplement and is noted to be working on a Medicaid application as well. No difficulty wit regards to affording his prescription medications noted at this time. Discharge plan is [facility] when stable. Will await facility determination and assist with return placement as appropriate. Patient has a 'DNRCCA' order in place and medical directives on file. LAUREANO Alonso 01/25/2025 [facility] Inpatient/Observation/Outpatien t Rehabilitation Date: 01/25/2025 Patient Name: Deniz Gómez [] Inpatient Acute/Observation [] Outpatient : 1945 [x] Pt refused/declined therapy at this time due to: Per RN, ok to evaluate patient. Upon attempt, patient agreeable, however, patient then refused to get out of bed and participate. [] Pt cancelled due to: [] No Reason Given [] Sick/ill [] Other: [] Evaluation held by RN/Provider/Physical Therapist due to: [] High Heart Rate [] High Blood Pressure [] Orthopedic Consult [] Hgb < 7 [] Other: [] Pt ordered brace per physician request: [] Proper fit will be completed and education for wearing/skin checks [] Pt does not require skilled services due to: Therapist/Acid Retort Operator will attempt to see this patient, at our earliest opportunity. Nelly Carrasquillo OTR/Cora Date: 01/25/2025 Urology consulted at this time Dr. Ramos on televisit with pt and son at bedside. [facility] Inpatient/Observation/Outpatien t Rehabilitation Date: 01/25/2025 Patient Name: Deniz Gómez [x] Inpatient Acute/Observation [] Outpatient : 1945 [] Pt refused/declined therapy at this time due to: [] Pt cancelled due to: [] No Reason Given [] Sick/ill [] Other: [x] Evaluation held by RN/Provider/Physical Therapist due to: [] High Heart Rate [] High Blood Pressure [] Orthopedic Consult [] Hgb < 7 [x] Other: PT evaluation attempted. Nursing requesting to hold off on therapy at this time due to agitation. [] Pt ordered brace per physician request: [] Proper fit will be completed and education for wearing/skin checks [] Pt does not require skilled services due to: Tenisha Nur, PT, DPT Date: 01/25/2025 Cosigned by Kenn Moya MD at 01/26/2025 3:29 PM EDT Modeling Agency Manager at bedside due to pt becoming agitated and yelling. Pt yelling Stop this fucking noise . Pt's IV machine is beeping due to pt's IV not running with pt's arm bent and not able to sit still. SLIME Kauffman assisted to try to place new IV and pt quickly become agitated and yelled Don't you dare touch me or I'll hit you. SLIME Kauffman told pt we will get security involved if pt becomes violent and pt said I don't care, do it, just leave me alone. Pt's IV paused and Latha MARTI notified at this time, no new orders. Comprehensive Nutrition Assessment Type and Reason for Visit: Initial Nutrition Recommendations/Plan: Ensure tid meals Encourage oral intakes/sitting up. Malnutrition Assessment: Malnutrition Status: At risk for malnutrition (01/25/25 1150) Context: Acute Illness Findings of the 6 clinical characteristics of malnutrition: Energy Intake: 50% or less of estimated energy requirements for 5 or more days (3 weeks) Weight Loss: Mild weight loss Body Fat Loss: Unable to assess (too covered) Muscle Mass Loss: Unable to assess (too covered) Fluid Accumulation: No fluid accumulation Instrument Setter Strength: Not Performed Nutrition Assessment: Inadequate nutrient intakes r/t altered renal status, AEB UTI with very low solid and liquid PO for 3 weeks with nearly 5% weight declines from a patient stated usual weight of 149#. Unfortunately unable to fully eval malnutrition with patient unwilling to get up for therapy to chair and is covered in blankets. Has been agitated and was minimally responsive to me. Son at bedside can report very good appetite and intakes prior to [facility] [place]. Improving renal indices with iv fluids. Added Ensure to improve intakes overall (discussed with son). Nutrition Related Findings: no b/s recorded. no edema. Wound Type: None Current Nutrition Intake & Therapies: Average Meal Intake: 1-25% (observed (only juice)) Average Supplements Intake: None Ordered ADULT DIET; Regular ADULT ORAL NUTRITION SUPPLEMENT; Breakfast, Lunch, Dinner; Standard High Calorie/High Protein Oral Supplement Anthropometric Measures: Height: 180.3 cm (5' 11 ) Barry Body Weight (IBW): 172 lbs (78 kg) Admission Body Weight: 79.4 kg (175 lb) (???) Current Body Weight: 64.3 kg (141 lb 12.8 oz), 82.4 % IBW. Weight Source: Bed scale Current BMI (kg/m2): 19.8 Usual Body Weight: 67.6 kg (149 lb) (per patient prior to illness (?3 weeks)) % Weight Change (Calculated): -4.8 Weight Adjustment For: No Adjustment BMI Categories: Underweight (BMI less than 22) age over 65 Estimated Daily Nutrient Needs: Energy Requirements Based On: Kcal/kg Weight Used for Energy Requirements: Current Energy (kcal/day): 6466-6983 (27-32) Weight Used for Protein Requirements: Current Protein (g/day): 84-96 (1.3-1.5) Method Used for Fluid Requirements: 1 ml/kcal Fluid (ml/day): Nutrition Diagnosis: Inadequate protein-energy intake related to renal dysfunction as evidenced by poor intake prior to admission, intake 0-25% Lab Results Component Value Date NA 143 01/25/2025 K 3.8 01/25/2025 CL 110 (H) 01/25/2025 CO2 21 01/25/2025 BUN 69 (H) 01/25/2025 CREATININE 4.3 (H) 01/25/2025 GLUCOSE 99 01/25/2025 CALCIUM 8.4 (L) 01/25/2025 BILITOT 0.3 01/24/2025 ALKPHOS 94 01/24/2025 AST 20 01/24/2025 ALT 16 01/24/2025 LABGLOM 13 (L) 01/25/2025 GFRAA 27 (L) 10/09/2020 No results found for: LABA1C No results found for: VITD25 Nutrition Interventions: Food and/or Nutrient Delivery: Continue Current Diet, Start Oral Nutrition Supplement Nutrition Education/Counseling: Education/Counseling initiated Coordination of Nutrition Care: Continue to monitor while inpatient Plan of Care discussed with: patient and son Goals: Goals: Meet at least 75% of estimated needs Type of Goal: New goal Previous Goal Met: New Goal Nutrition Monitoring and Evaluation: Behavioral-Environmental Outcomes: Other (cognition) Food/Nutrient Intake Outcomes: Food and Nutrient Intake Physical Signs/Symptoms Outcomes: Biochemical Data, Weight Discharge Planning: Continue Oral Nutrition Supplement, Continue current diet Martin Potter RD, [place]LIN[place] Contact: [phone] Progress Note SUBJECTIVE: Patient seen for f/u of Acute kidney injury superimposed on CKD. He resting in bed calm with son at side. Cooperative at this time. Son stated that he is not normally confused or agitated unless UTI. ROS: Constitutional: negative for fevers, and negative for chills. Respiratory: negative for shortness of breath, negative for cough, and negative for wheezing Cardiovascular: negative for chest pain, and negative for palpitations Gastrointestinal: negative for abdominal pain, negative for nausea,negative for vomiting, negative for diarrhea, and negative for constipation All other systems were reviewed with the patient and are negative unless otherwise stated in HPI OBJECTIVE: Vitals: Vitals: 01/25/25 0740 BP: (!) 143/83 Pulse: 75 Resp: 15 Temp: 98.4 F (36.9 C) SpO2: 99% Weight - Scale: 64.3 kg (141 lb 12.8 oz) Height: 180.3 cm (5' 11 ) Weight Wt Readings from Last 3 Encounters: 01/25/25 64.3 kg (141 lb 12.8 oz) Body mass index is 19.78 kg/m . 24HR INTAKE/OUTPUT: Intake/Output Summary (Last 24 hours) at 01/25/2025 0749 Last data filed at 01/25/2025 0747 Gross per 24 hour Intake 1250.57 ml Output 2725 ml Net -1474.43 ml --- Exam: GEN: Awake, alert and confused. EYES: EOMI, pupils equal NECK: Supple. No lymphadenopathy. No carotid bruit CVS: regular rate and rhythm, no audible murmur PULM: CTA, no wheezes, rales or rhonchi, no acute respiratory distress ABD: Bowels sounds normal. Abdomen is soft. No distention. no tenderness to palpation. EXT: no edema bilaterally . No calf tenderness. NEURO: Moves all extremities. Motor and sensory are grossly intact SKIN: No rashes. No skin lesions. --- Diagnostic Data: Complete Blood Count: Recent Labs 01/24/25 1251 01/25/25 0545 WBC 7.8 5.9 RBC 3.42* 3.03* HGB 9.2* 8.3* HCT 28.9* 26.1* MCV 84.5 86.1 MCH 26.9 27.4 MCHC 31.8 31.8 RDW 16.1* 16.0* PLT 547* 511* MPV 10.6 10.9 Last 3 Blood Glucose: Recent Labs 01/24/25 0710 01/24/25 1251 01/25/25 0545 GLUCOSE 107* 118* 99 Comprehensive Metabolic Profile: Recent Labs 01/24/25 0710 01/24/25 1251 01/25/25 0545 NA 140 139 143 K 3.7 3.7 3.8 CL 105 103 110* CO2 20 22 21 BUN 85* 80* 69* CREATININE 5.6* 5.4* 4.3* GLUCOSE 107* 118* 99 CALCIUM 8.8 9.1 8.4* BILITOT 0.3 0.3 -- ALKPHOS 98 94 -- AST 21 20 -- ALT 14 16 -- Urinalysis: Lab Results Component Value Date/Time NITRU POSITIVE 01/24/2025 12:54 PM COLORU Yellow 01/24/2025 12:54 PM PHUR 7.5 01/24/2025 12:54 PM WBCUA 10 TO 20 01/24/2025 12:54 PM RBCUA 0 TO 2 01/24/2025 12:54 PM BACTERIA 2+ 01/24/2025 12:54 PM LEUKOCYTESUR MODERATE 01/24/2025 12:54 PM UROBILINOGEN Normal 01/24/2025 12:54 PM BILIRUBINUR NEGATIVE 01/24/2025 12:54 PM GLUCOSEU NEGATIVE 01/24/2025 12:54 PM KETUA NEGATIVE 01/24/2025 12:54 PM AMORPHOUS 2+ 01/22/2025 04:45 PM HgBA1c: No results found for: LABA1C Lactic Acid: No results found for: LACTA Troponin: No results for input(s): TROPONINI in the last 72 hours. CRP: No results for input(s): CRP in the last 72 hours. Radiology/Imaging: CT ABDOMEN PELVIS WO CONTRAST Additional Contrast? None Final Result 1. Severely distended bladder extending to the level of the umbilicus with moderate bilateral hydronephrosis and hydroureter which is likely related. No ureteral stone is identified. The findings suggest bladder outlet obstruction. 2. Mild prostatomegaly. 3. Moderate amount of stool in the rectum with mild to moderate rectal distension. ASSESSMENT / PLAN: MEDICAL DECISION MAKING: Primary Problem(s): Acute kidney injury superimposed on CKD Differential diagnoses: Bladder outlet obstruction, constipation Condition is a chronic illness with exacerbation, progression or side effects of treatment Condition is stable Treatment plan: Appreciate Nephrology - ?? Uremic Monitor labs replace electrolytes Strict I/O Continue Diaz catheter Imaging: no further imaging studies ordered today Medications: IV fluids Continue Flomax Continue Colace 100 mg twice daily Continue senna nightly Medication Monitoring / High Risk Medications: none UTI Condition is a chronic stable condition Treatment plan: Urine culture-pending BC x 2 now (not collected prior to antibiotics initiated) Imaging: no further imaging studies ordered today Medications: Continue IV Rocephin Continue IV fluids Anemia Condition is a chronic stable condition Treatment plan: Iron, TIBC, Retic Ct, folate, B12, Haptoglobin Imaging: no further imaging studies ordered today Medications: Start Retacrit Major depressive disorder Condition is a chronic stable condition Treatment plan: Continue current treatment Imaging: no further imaging studies ordered today Medications: Continue Seroquel, Remeron Nutrition status: Well developed, well nourished with no malnutrition Asthma Educator consult initiated Hospital Prophylaxis: DVT: heparin Stress Ulcer: na Disposition: Shared decision making: All test results, treatment options and disposition options were discussed with the patient and family members today Social determinants of health that may impact management: none Code status: DNR-CCA Disposition: Discharge plan is pending [facility] Advanced Care Planning documentation: [x] I have confirmed that the patient's Advance Care Plan is present, Code Status is documented, or surrogate decision maker is listed in the patient's medical record [If yes , STOP HERE] [] The patient's Advance Care Plan is NOT present because: [] I confirmed today that the patient does not wish or was not able to name a surrogate decision maker or provide and advance care plan. [] Hospice care is currently being provided or has been provided within the calendar year. [] I did NOT confirm today the presence of an Advance Care Plan or surrogate decision maker documented within the patient's medical record. [DOES NOT SATISFY [facility] PERFORMANCE] PAKO Agrawal CNP , PAKO, COMPOSITION WEATHERBOARD INSTALLER-C [facility] 01/25/2025, 7:49 AM Cosigned by Kenn Moya MD at 01/26/2025 3:29 PM EDT Associated attestation - Kenn Moya MD - 01/26/2025 3:29 PM EDT Attending Supervising Physician s Attestation Statement I have personally evaluated and examined the patient [id number] in conjunction with the nurse practitioner. I agree with management and disposition of the patient. Examined and Reviewed plan of care with COMPOSITION WEATHERBOARD INSTALLER. Directions and discussion about care and plans. Disposition including length of stay was reviewed. Nutritional status, advanced directive and old records reviewed. In addition, Consultations and pharmacy management including drug therapy was reviewed. Therapy goals along with occupational therapy was reviewed & integrated into management including disposition. The patient was seen examined with the nurse practitioner & all direct care was reviewed with the nurse practitioner at the bedside with the patient. Electronically signed by Kenn Moya MD Modeling Agency Manager to bedside to complete morning assessment. Upon entry to room, pt in bed eyes closed, respirations even and unlabored while on room air. Vitals obtained and assessment completed, see flow sheet for details. Pt is oriented to self, place but disoriented to time and situation. Lung sounds are clear throughout. Pt's diaz is patent and draining. Pt becomes agitated easily with further assessment. Pt denies needs from residential mortgage underwriter at this time. Call light in reach, bed alarm on. Care ongoing. Modeling Agency Manager to bedside to complete assessment. Patient awoken. Patient was pleasant with residential mortgage underwriter and PCT during assessment, vitals and medication administration. Patient took pills whole with water. Patient does well when patient not overly stimulated and every step of what is going on is explained to him. Patient does express that he doesn't feel good and just wants to be left alone to sleep. Patient assisted to get comfortable in bed. Call light, bedside table and personal belongings within reach. Bed alarm on. Patient resting with eyes closed at this time. Modeling Agency Manager to allow patient to sleep at this time as per Katie PALENCIA, patient was agitated, mean and very verbal upon admission today at 1630. Call light, bedside table and personal belongings within reach. Bed alarm is on. Patient admitted to [facility] via stretcher from ER.Vitals and assessment completed. Son updated on plan of care and educated on IV fluids and ATBs. No needs at this time. Call light and bedside table within reach. Bed alarm on. Will continue to monitor. documented in this encounter [facility] 01-27-2025 Hospital Discharg e Taisha Segal RN - 01/27/2025 9:49 AM EDT Continuity of Care Form Patient Name: Deniz Gómez : 1945 Admit date: 01/24/2025 Discharge date: 01/27/2025 Code Status Order: DNR-CCA Advance Directives: Admitting Physician: Kenn Moya MD PCP: No primary care provider on file. Discharging Nurse: Taisha Bonilla RN Discharging Hospital Unit/Room#: 0303/0303-01 Discharging Unit Emergency Contact: Extended Emergency Contact Information Primary Emergency Contact: GARY LARA(POA) Address: [address] [place] [address] Relation: Child Material Chaser needed? No Secondary Emergency Contact: TESS TALBERT Relation: Child Material Chaser needed? No Past Surgical History: No past surgical history on file. Immunization History: There is no immunization history on file for this patient. 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 (HCC) F33.2 Isolation/Infection: Isolation No Isolation Patient Infection Status None to display Nurse Assessment: Last Vital Signs: BP (!) 151/88 Pulse 70 Temp 98.7 F (37.1 C) (Temporal) Resp 16 Ht 1.803 m (5' 11 ) Wt 63.5 kg (140 lb) SpO2 99% BMI 19.53 kg/m Last documented pain score (0-10 scale): Last Weight: Wt Readings from Last 1 Encounters: 01/27/25 63.5 kg (140 lb) Mental Status: disoriented and alert IV Access: - None Nursing Mobility/ADLs: Walking Assisted Transfer Assisted Bathing Assisted Dressing Assisted Toileting Assisted Feeding Independent Counterintelligence Specialist Assisted Med Delivery whole Wound Care Documentation and Therapy: Elimination: Continence: Bowel: Yes Bladder: Yes Urinary Catheter: Insertion Date: 01/24/2025 Colostomy/Ileostomy/Ileal Conduit: No Date of Last BM: 01/24/2025 Intake/Output Summary (Last 24 hours) at 01/27/2025 1006 Last data filed at 01/27/2025 0459 Gross per 24 hour Intake 2902 ml Output 2750 ml Net 152 ml I/O last 3 completed shifts: In: 6014.5 [P.O.:2570; I.V.:3444.5] Out: 5125 [Urine:5125] Safety Concerns: At Risk for Falls Impairments/Disabilities: None Nutrition Therapy: Current Nutrition Therapy: - Oral Diet: General Routes of Feeding: Oral Liquids: No Restrictions Daily Fluid Restriction: no Last Modified Barium Swallow with Video (Video Swallowing Test): not done Treatments at the Time of Hospital Discharge: Respiratory Treatments: N/A Oxygen Therapy: is not on home oxygen therapy. Ventilator: - No ventilator support Rehab Therapies: Physical Therapy and Occupational Therapy Weight Bearing Status/Restrictions: No weight bearing restrictions Other Medical Equipment (for information only, NOT a DME order): walker Other Treatments: N/A Patient's personal belongings (please select all that are sent with patient): Clothing RN SIGNATURE: CASE MANAGEMENT/SOCIAL WORK SECTION Inpatient Status Date: 01/24/25 Readmission Risk Assessment Score: [facility] RISK OF UNPLANNED READMISSION 2.0 16.2 Total Score Discharging to Facility/ Agency Name: [facility] Address:[address] [place] [address] Fax: Dialysis Facility (if applicable) Name: Address: Dialysis Schedule: Phone: Fax: Logging Equipment Mechanic/Performing Arts Technicians signature: PHYSICIAN SECTION Prognosis: Fair Condition at Discharge: Stable Rehab Potential (if transferring to Rehab): Good Recommended Labs or Other Treatments After Discharge: Diaz to remain in per Urology. Diaz care to be completed daily, wash with mild soap and water and dry. Physician Certification: I certify the above information and transfer of Deniz Gómez is necessary for the continuing treatment of the diagnosis listed and that he requires LTAC for greater 30 days. Update Admission H&P: No change in H&P PHYSICIAN SIGNATURE: documented in this encounter [facility] 12-03-2023 Hospital Discharg e instructions Patient Education [...] including vitamins, herbs, eye drops, creams, and sjxz-dzn-tpltgqt medicines. ?Whether you are or may be [...] provider. Document Revised: 07/03/2022 Document Reviewed: 05/25/2021 [employer] Patient Education 2022 [employer] 12/03/2023 15:44:25 Cystoscopy Cystoscopy Cystoscopy is [...] including vitamins, herbs, eye drops, creams, and wfcu-oso-ruqapdk medicines. Any problems you or family members [...] provider tells you to take them. Taking zwnx-tcw-uovxvpu medicines, vitamins, herbs, and supplements. Tests You [...] Follow these instructions at home: Medicines Take nduw-jyp-jvfjihd and prescription medicines only as told by [...] provider. Document Revised: 07/03/2022 Document Reviewed: 06/01/2021 [employer] Patient Education 2022 [employer]. 12/03/2023 15:42:54 Acute Urinary Retention, Male Acute [...] Follow these instructions at home: Medicines Take ycyg-jps-cthrxcn and prescription medicines only as told by [...] provider. Document Revised: 07/11/2021 Document Reviewed: 07/11/2021 [employer] Patient Education 2022 [employer]. Follow Up Care 10/22/2023 15:11:22 With:DARREL MENDEZ, AGNES Horton, URL Address: [address] [facility] [place] [address] [phone] When: Unknown Comments:sched cysto/uros [facility] 10-10-2023 Evaluation note Encounter Date Diagnosis Assessment [...] candidate, will discuss further at wellness examination [employer] Other 12-08-2023 Evaluation note* Encounter Date Diagnosis [...] candidate, will discuss further at wellness examination [employer] Other 09-08-2023 Evaluation note* Encounter Date Diagnosis [...] and cancers. Discussed scheduling LDCT in future [employer] Other 08-31-2023 Evaluation note* Encounter Date Diagnosis [...] PSA (prostate specific antigen) (ICD-10 - Z12.5) [employer] Other 08-17-2023 Evaluation note* Encounter Date Diagnosis Assessment Notes Treatment Notes Treatment Clinical Notes Jun, Encounter for removal of sutures (ICD-10 - Z48.02) 5 sutures removed today in office, patient tolerated procedure well. Advised patient that he may leave area [facility]. Follow-up with PCP for signs signs/symptoms of [...] how to contact to establish with Dr. Wilson in [place]. Advised patient to head into ER for chest pain, shortness of breath, headaches, fevers greater than 103. Patient verbalizes understanding and is agreeable with treatment plan [employer] Other 12-09-2022 Evaluation note* Encounter Date Diagnosis Assessment Notes Treatment Notes Treatment Clinical Notes Oct, Visit for suture removal (ICD-10 - Z48.02) Suture removal home care material was printed Keep the wounds to the face and upper lip clean and dry. Apply antibiotic ointment to the wounds daily until they are completely healed. Follow-up with your family physician for any further concern [employer] Other 12-07-2022 Evaluation note* Encounter Date Diagnosis [...] in office today. Prior medical notes from [facility] and history have been reviewed. At this time I would recommend splint application and nonweightbearing. We will plan for follow-up 3 to 4 weeks for repeat x-rays. The patient has been involved in our cooperative treatment plan and agrees to move forward with treatment at this time. Oct, Other See orders for this visit as documented in the electronic medical record. [employer] Other Evaluation + Plan note No data available for this section [facility] Evaluation noteNo assessment information available [facility] Work Phone: Evaluation noteNo InformationNort Datameer Other Evaluation note* Diagnosis Onset Date Resolution Status Benign prostatic hyperplasia with lower urinary tract symptoms acute Mild cognitive impairment [place] Primary hypertension acute Simple chronic bronchitis [place] Stage 3b chronic kidney disease acute [facility] Work Phone: Evaluation note* Diagnosis Onset Date Resolution Status Benign prostatic hyperplasia with lower urinary tract symptoms acute Medicare annual wellness visit, subsequent acute Mild cognitive impairment [place] Primary hypertension acute Simple chronic bronchitis [place] Stage 3b chronic kidney disease acute Unsteady when turning acute [facility] Work Phone: Evaluation note* Diagnosis Acute kidney injury superimposed on CKD- Primary Acute renal failure, unspecified acute renal failure type Urinary tract infection without hematuria, site unspecified Acute cystitis without hematuria Acute cystitis Slow transit constipation Bladder outlet obstruction Urinary obstruction, unspecified Major depressive disorder, recurrent, 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 (HCC) Major depressive disorder, recurrent episode, severe, without mention of psychotic behavior documented in this encounter [facility] Narrative - Reported* Type Description Date Medical History right arm injury Surgical History eye surgery [employer] Other History general Narrative - Reported* Type Description Date Medical History right arm injury Medical History HTN (hypertension) Medical History BPH (benign prostatic hyperplasi a) Medical History Constipation Medical History GERD (gastroesophageal reflux di sease) Medical History Iron deficiency anemia Surgical History eye surgery [employer] Other [facility] Narrative - Reported* Type Description Date Medical History right arm injury Medical History HTN (hypertension) Medical History BPH (benign prostatic hyperplasi a) Medical History Constipation Medical History GERD (gastroesophageal reflux di sease) Medical History Iron deficiency anemia Surgical History eye surgery Hospitalization History see surgical history [employer] Other [facility] Narrative - Reported* Type Description Date Medical History right arm injury Medical History HTN (hypertension) Medical History BPH (benign prostatic hyperplasi a) Medical History Constipation Medical History GERD (gastroesophageal reflux di sease) Medical History Iron deficiency anemia Surgical History eye surgery Surgical History Rezum prostate procedure Hospitalization History see surgical history [employer] Other Hospital Discharge instructions No data available for this section [facility] No data available for this section [facility] Summary Purpose Family History No Family History Records Found Relationship Condition Age at Onset Recorded Date/T seth father Unknown Not Specified Unknown Relationship Condition Age at Onset Recorded Date/T seth father Unknown mother Unknown Advance Directives No Advanced Directives Records Found Advance Directive Response Recorded Date/ Time Advance Directives No October 2:38pm Advance Directive Response Recorded Date/ Time Advance Directives No October 3:38pm Date Activated Date Inactivated Comments 01/24/2025 4:36 PM Healthcare Agents on File Name Relationship Healthcare Agent Alla Lara (Poa) Child Primary Decision Maker Hospital Course Note MR#: [id number] [facility] Pt. Name: Chano Gómez Admitted: 09/10/2020 Discharged: 09/26/2020 Date of : 1945 Physician: Rohith Barahona MD DISCHARGE SUMMARY PRINCIPAL DIAGNOSES: 1. Nonoliguric [...] nonspecific bladder wall thickening and decompressed with Diaz catheter. The patient had an EGD which showed normal esophagus, mild gastritis, biopsied to rule out H pylori. The patient had a colonoscopy, was poor pr (more content not included)... Note MR#: [id number] [facility] Pt. Name: Chano Gómez Surgery Date: 09/25/2020 Room #: [id number] Date of : 1945 PROCEDURE NOTE ATTENDING: Ghada Edge MD PROCEDURE: Colonoscopy with anesthesia. INDICATIONS: A [...] not included)... Procedure Findings Note MR#: [id number] [facility] Pt. Name: Chano Gómez Surgery Date: 09/25/2020 Room #: [id number] Date of : 1945 PROCEDURE NOTE ATTENDING: Ghada Edge MD PROCEDURE: Colonoscopy with anesthesia. INDICATIONS: A [...] 3b chronic kidney disease Unsteady when turning Chief Complaint Admit Date Residential Visit November 25, 2024 1 1:59pm Unknown December 27, 2024 4:15pm Reason for Referral Reason Patient being referr ed for urinary retention and post obstructive uropathy Diagnosis 1 Benign prostatic hyp erplasia with lower urinary tract symptoms (N40.1) Diagnosis 2 Feeling of incomplet e bladder emptying (R39.14) Referral Organization [facility] Eugenio moreno Referring Provider First Name Soham Referring Provider Last Name Abdullahi Referring Provider Specialty Internal Me dicine Referred Organization [facility] Referred Address [address],[place], [place],[address] Referred Provider Specialty Urology Referral Priority Routine General Notes Mr. Gómez has a hi story of urinary retention and had a diaz placed in the remote past. He was [...] section and content) DATE CREATED AUTHOR 10/12/2020 [facility] DATE CREATED AUTHOR AUTHOR'S ORGANIZ ATION 10/23/2020 [facility] DATE CREATED AUTHOR AUTHOR'S ORGANIZ ATION 10/26/2020 [facility] DATE CREATED AUTHOR AUTHOR'S ORGANIZ ATION 10/10/2022 [facility] DATE CREATED AUTHOR AUTHOR'S ORGANIZ ATION 01/03/2024 [facility] DATE CREATED AUTHOR AUTHOR'S ORGANIZ ATION 01/04/2025 [facility] DATE CREATED AUTHOR AUTHOR'S ORGANIZ ATION 01/29/2025 [facility] REASON FOR VISIT (unrecogniz ed section and content) Reason Comments Abnormal Lab Pt sent to ED via EM S from [facility] for elevated crea. Pt refusing to answer questions during triage at this time. Specialty Diagnoses / Procedures Referred By Munir t Referred To Contact Diagnoses Acute kidney injury superimposed on CKD Kenn Moya MD [address] [place] [address], [place] [address] Phone: tel: fax: [facility] [id number] [place] [address] Referral ID Status Reason Start Date Expiration Date Visits Re quested Visits Authorized [id number] Care Teams (unrecognized sec tion and content) Team Status: Active Member Role Status Dates Soham Wilson DO Primary Care Provider Active Team Status: Active Member Role Status Dates Soham Wilson DO Primary Care Provider Active Start: November 17, 2024 Stephanie Sarmiento PA-C Attending Provider Active Start: November 17, 2024 Team Status: Active Member Role Status Dates Soham Wilson DO Primary Care Provide r, Attending Provider Active Start: November 17, 2024 End: November 20, 2024 Juve Yanez MD Referring Provider Active Sta rt: November 17, 2024 End: November 20, 2024 Team Status: Active Member Role Status Dates Soham Wilson DO Primary Care Provider Active Start: November 18, 2024 Valentina Morris Attending Provider Active Start: [facility] 2024 Team Status: Active Member Role Status Dates Soham Wilson DO Primary Care Provider Active Start: November 19, 2024 Valentina Morris Attending Provider Active Start: [facility] 2024 Team Status: Active Member Role Status Dates Soham Wilson DO Primary Care Provider Active Start: November 20, 2024 Valentina Morris Attending Provider Active Start: [facility] 2024 Team Status: Active Member Role Status Dates Soham Wilson DO Primary Care Provide r, Attending Provider Active Start: November 25, 2024 Team Status: Active Member Role Status Brendan Wilson DO Primary Care Provider Active Start: December 27, 2024 Stephanie Sarmiento PA-C Attending Provider Active Start: December 27, 2024 Team Status: Inactive Member Role Status Dates Soham Wilson DO Primary Care Provider Active Start: December 27, 2024 End: December 27, 2024 Stephanie Sarmiento PA-C Attending Provider Active Start: December 27, 2024 End: December 27, 2024 Team Status: Active Member Role Status Dates Soham Wilson DO Primary Care Provide r, Attending Provider Active Start: December 28, 2024 Team Status: Inactive Member Role Status Dates Soham Wilson DO Primary Care Provide r, Attending Provider [...] Status: Inactive Member Role Status Dates Soham Wilson DO Primary Care Provide r, Attending Provider Active Start: February 03, 2024 End: February 03, 2024 Team Status: Inactive Member Role Status Dates Soham Wilson DO Primary Care Provide r, Attending Provider Active Start: August 16, 2024 End: August 16, 2024 Goals (unrecognized section and content) Goals may be documented in a n alternate section Ordered Prescriptions (unrec ognized section and content) Prescription Sig Dispense Quantity Refills Last Filled Start Date End Date cephALEXin (KEFLEX) 500 MG capsule Take 1 capsule by mouth 3 times daily for 10 days 30 capsule 01/27/2025 5 polyethylene glycol (GLYCOLAX) 17 g packet Take 1 packet by mouth daily as needed for Constipation 01/27/2025 5 senna (SENOKOT) 8.6 MG tablet Take 1 tablet by mouth nightly 01/27/2025 5 docusate sodium (COLACE, DULCOLAX) 100 MG CAPS Take 100 mg by mouth 2 times daily 01/27/2025 ferrous sulfate (IRON 325) 325 (65 Fe) MG tablet Take 1 tablet by mouth daily (with breakfast) 01/28/2025 Scheduled Active and Recently Administ ered Medications (unrecognized section and content) Medication Order 01/25/2025 01/26/2025 01/27/2025 calcium gluconate 2,000 mg in sodium chloride 100 mL (COMPLETED) 2,000 mg, IntraVENous, at 50 mL/hr, Administer over 120 Minutes, ONCE, On Alejandra 01/27/25 at 0915, For 1 dose 0915 (New Bag - Provider: Taisha Bonilla RN)0915 (Rate/Dose Verify - Provider: Taisha Bonilla RN)1107 (Stopped - Provider: Taisha Bonilla RN)1110 (Stopped - Provider: Taisha Bonilla RN) carvedilol (COREG) tablet 12.5 mg 12.5 mg, Oral, 2 TIMES DAILY WITH MEALS, First dose on 01/24/25 at 2100, Until Discontinued, Administer with food to minimize the risk of orthostatic hypotension 1050 (Given - Provider: Ricarda Levy RN)2155 (Given - Provider: Florecita E Nathaniel, RN) 0921 (Given - Provider: Zoey Espinal RN)2018 (Given - Provider: Arianne Miranda RN) 0850 (Given - Provider: Taisha Bonilla RN)2099 (Due - Provider: Don Okeefe [facility]) cefTRIAXone (ROCEPHIN) 1,000 mg in sterile water 10 mL IV syringe 1,000 mg, IntraVENous, EVERY 24 HOURS, First dose on Fri01/25/25 at 1400, For 5 days, Administer as slow IV Push over 5 mins Reconstitute 1 g vials with 9.6 mL of designated diluent to produce a 100 mg/mL solution. 1454 (Given - Provider: Ricarda Levy RN) 1401 (Given - Provider: Zoey Espinal RN) 1328 (Given - Provider: Taisha Bonilla RN) docusate sodium (COLACE) capsule 100 mg 100 mg, Oral, 2 TIMES DAILY, First dose on Fri01/24/25 at 2100, Until Discontinued, Do not crush or break. 1050 (Given - Provider: Ricarda Levy RN)2154 (Given - Provider: Florecita Armstrong RN) 0921 (Given - Provider: Zoey Espinal RN)2018 (Given - Provider: Arianne Miranda RN) 0850 (Given - Provider: Taisha Bonilla RN)2099 (Due) epoetin cristino-epbx (RETACRIT) injection 1,600 Units 1,600 Units (rounded from 1,607.5 Units = 25 Units/kg 64.3 kg), SubCUTAneous, EVERY (Once per day on Friday), First dose on Fri01/25/25 at 0900, Start or continue erythropoietin cristino-epbx (RETACRIT) therapy only if the hemoglobin is less than 10 g/dL. 1050 (Given - Provider: Ricarda Levy RN) 0850 (Given - Provider: Taisha Bonilla RN) ferrous sulfate (IRON 325) tablet 325 mg 325 mg, Oral, DAILY WITH BREAKFAST, First dose on Fri01/26/25 at 0800, Until Discontinued 0920 (Given - Provider: Zoey Espinal RN) 0850 (Given - Provider: Taisha Bonilla RN) heparin (porcine) injection 5,000 Units (CANCELED) 5,000 Units, SubCUTAneous, EVERY 8 HOURS SCHEDULED (3 times per day), First dose on Fri01/24/25 at 1645, Until Discontinued 05 (Given - Provider: Florecita Armstrong RN) heparin (porcine) injection 5,000 Units 5,000 Units, SubCUTAneous, 2 TIMES DAILY, First dose (after last modification) on Fri01/25/25 at 2100, Until Discontinued 2153 (Given - Provider: Florecita Armstrong RN) 920 (Given - Provider: Zoey Espinal RN)2021 (Given - Provider: Arianne Miranda RN) 0850 (Given - Provider: Taisha Bonilla RN)2099 (Due) levETIRAcetam (KEPPRA) tablet 500 mg 500 mg, Oral, NIGHTLY, First dose (after last modification) on Fri01/25/25 at 2100, Until Discontinued, Do not crush or chew. 2153 (Given - Provider: Florecita Armstrong RN) 2018 (Given - Provider: Arianne Miranda RN) 2099 (Due) mirtazapine (REMERON) tablet 15 mg 15 mg, Oral, NIGHTLY, First dose on Fri01/24/25 at 2100, Until Discontinued 2154 (Given - Provider: Florecita Armstrong RN) 2018 (Given - Provider: Arianne Miranda RN) 2099 (Due) potassium chloride (KLOR-CON M) extended release tablet 20 mEq (COMPLETED) 20 mEq, Oral, ONCE, 1 dose, On Fri01/26/25 at 1015, Do not crush, chew, or suck on tablet. Tablet may also be broken in half and each half swallowed separately. 102 (Given - Provider: Zoey Espinal RN) potassium chloride (KLOR-CON M) extended release tablet 40 mEq (COMPLETED) 40 mEq, Oral, ONCE, 1 dose, On Fri01/27/25 at 0800, Do not crush, chew, or suck on tablet. Tablet may also be broken in half and each half swallowed separately. 0850 (Given - Provider: Taisha Bonilla RN) potassium chloride (KLOR-CON M) extended release tablet 40 mEq (COMPLETED) 40 mEq, Oral, ONCE, 1 dose, On Alejandra 01/27/25 at 0900, Do not crush, chew, or suck on tablet. Tablet may also be broken in half and each half swallowed separately. 09 (Given - Provider: Taisha Bonilla, SLIME) QUEtiapine (SEROQUEL) tablet 25 mg 25 mg, Oral, 2 TIMES DAILY, First dose on Fri01/24/25 at 2100, Until Discontinued 1050 (Given - Provider: Ricarda Levy RN)2153 (Given - Provider: Florecita Armstrong, SLIME) 919 (Given - Provider: Zoey Espinal, SLIME)2018 (Given - Provider: Arianne Miranda, SLIME) 0850 (Given - Provider: Taisha Bonilla RN)2099 (Due) senna (SENOKOT) tablet 8.6 mg 8.6 mg (1 tablet), Oral, NIGHTLY, First dose on Fri01/24/25 at 2100, Until Discontinued 2153 (Given - Provider: Florecita Armstrong RN) 2018 (Given - Provider: Arianne Miranda, SLIME) 2099 (Due) sodium chloride flush 0.9 % injection 5-40 mL 5-40 mL, IntraVENous, EVERY 12 HOURS SCHEDULED (2 times per day), First dose on Fri01/24/25 at 2100, Until Discontinued, For Line Patency: Peripheral IV = 5 mL; Midline or Central Line = 10 mL/lumen. If following IV push medication, administer flush at same rate as the IV push. Flush volume is determined by type of infusion therapy being given. For non-viscous solutions use: Peripheral IV = 5 mL Midline or Central Line = 10 mL/lumen For viscous solutions (i.e. blood components, parenteral nutrition, contrast media, or after obtaining blood sample) use: Peripheral IV = 10 mL Midline or Central Line = 20 mL/lumen 1100 (Not Given - Provider: Ricarda Levy RN - Reason: IV Fluid Infusing)2134 (Not Given - Provider: Florecita Armstrong RN - Reason: IV Fluid Infusing) 09 (Given - Provider: Zoey Espinal, SLIME)2021 (Not Given - Provider: Arianne Miranda RN - Reason: IV Fluid Infusing) 0725 (Not Given - Provider: Taisha Bonilla RN - Reason: IV Fluid Infusing)2099 (Due) tamsulosin (FLOMAX) capsule 0.4 mg 0.4 mg, Oral, DAILY, First dose on Fri01/24/25 at 1645, Until Discontinued, Do not crush or break. Give 30 minutes after a full meal to limit risk of orthostatic hypotension/falls. 2154 (Given - Provider: Florecita Armstrong RN) 2018 (Given - Provider: Arianne Miranda RN) 2099 (Due - Provider: Don Okeefe [facility]) Continuous Medication Order 01/25/2025 01/26/2025 01/27/2025 0.9 % sodium chloride infusion (CANCELED) IntraVENous, at 75 mL/hr, CONTINUOUS, Starting on Fri01/24/25 at 1645 0552 (New Bag - Provider: Florecita Armstrong RN)1629 (New Bag - Provider: Jody Coello RN) 0817 (Rate/Dose Change - Provider: Zoey Espinal RN)1216 (New Bag - Provider: Zoey Espinal RN) 0108 (New Bag - Provider: Arianne Miranda, SLIME)0849 (Stopped - Provider: Taisha Bonilla RN) PRN Medication Order 01/25/2025 01/26/2025 01/27/2025 0.9 % sodium chloride infusion IntraVENous, at 100 mL/hr, PRN, If patient receiving piggyback infusions without ordered maintenance IV fluids or with frequent/long duration piggyback infusions, Starting on Fri01/24/25 at 1636, Administer at the same rate as the piggyback being infused. acetaminophen (TYLENOL) suppository 650 mg(Linked Group 1) 650 mg, Rectal, EVERY 6 HOURS PRN, Starting on Fri01/24/25 at 1636, Until Discontinued, Pain Mild (1-3), allowed for higher pain score per patient request, Fever, For temp greater than 100.4 F (38 C), Administer if oral route cannot be used. acetaminophen (TYLENOL) tablet 650 mg(Linked Group 1) 650 mg, Oral, EVERY 6 HOURS PRN, Starting on Fri01/24/25 at 1636, Until Discontinued, Pain Mild (1-3), allowed for higher pain score per patient request, Fever, For temp greater than 100.4 F (38 C), Maximum dose of acetaminophen is 4000 mg from all sources in 24 hours. diphenhydrAMINE (BENADRYL) capsule 25 mg 25 mg, Oral, EVERY 6 HOURS PRN, Starting on 01/24/25 at 1636, Until Discontinued, agitation 2325 (Given - Provider: Arianne Miranda RN) haloperidol lactate (HALDOL) injection 2 mg 2 mg, IntraMUSCular, EVERY 6 HOURS PRN, Starting on Alejandra 01/27/25 at 0019, Until Discontinued, Agitation, IM route of administration preferred. Because of the risk of TdP and QT prolongation, ECG monitoring is recommended if haloperidol is given IV. 0031 (Given - Provid er: Arianne Miranda RN) ondansetron (ZOFRAN) injection 4 mg(Linked Group 2) 4 mg, IntraVENous, EVERY 6 HOURS PRN, Starting on Fri01/24/25 at 1636, Until Discontinued, Nausea, Vomiting, Administer if oral route cannot be used. ondansetron (ZOFRAN-ODT) disintegrating tablet 4 mg(Linked Group 2) 4 mg, Oral, EVERY 8 HOURS PRN, Starting on Fri01/24/25 at 1636, Until Discontinued, Nausea, Vomiting polyethylene glycol (GLYCOLAX) packet 17 g 17 g, Oral, DAILY PRN, Starting on Fri01/24/25 at 1636, Until Discontinued, Constipation, First line therapy for constipation sodium chloride flush 0.9 % injection 5-40 mL 5-40 mL, IntraVENous, PRN, Starting on Fri01/24/25 at 1636, Until Discontinued, Line Care, After every IV line use, For Line Patency: Peripheral IV = 5 mL; Midline or Central Line = 10 mL/lumen. If following IV push medication, administer flush at same rate as the IV push. Flush volume is determined by type of infusion therapy being given. For non-viscous solutions use: Peripheral IV = 5 mL Midline or Central Line = 10 mL/lumen For viscous solutions (i.e. blood components, parenteral nutrition, contrast media, or after obtaining blood sample) use: Peripheral IV = 10 mL Midline or Central Line = 20 mL/lumen Linked Groups Order Group 1: acetaminophen (TYLENOL) tablet 650 mgJump to med 650 mg, Oral, EVERY 6 HOURS PRN, Starting on Fri01/24/25 at 1636, Until Discontinued, Pain Mild (1-3), allowed for higher pain score per patient request, Fever, For temp greater than 100.4 F (38 C), Maximum dose of acetaminophen is 4000 mg from all sources in 24 hours. Or acetaminophen (TYLENOL) suppository 650 mgJump to med 650 mg, Rectal, EVERY 6 HOURS PRN, Starting on Fri01/24/25 at 1636, Until Discontinued, Pain Mild (1-3), allowed for higher pain score per patient request, Fever, For temp greater than 100.4 F (38 C), Administer if oral route cannot be used. Group 2: ondansetron (ZOFRAN-ODT) disintegrating tablet 4 mgJump to med 4 mg, Oral, EVERY 8 HOURS PRN, Starting on Fri01/24/25 at 1636, Until Discontinued, Nausea, Vomiting Or ondansetron (ZOFRAN) injection 4 mgJump to med 4 mg, IntraVENous, EVERY 6 HOURS PRN, Starting on Fri01/24/25 at 1636, Until Discontinued, Nausea, Vomiting, Administer if oral route cannot be used. FOR RECORDS PERTAINING TO PATIENTS WHO ARE [...] BE BASED ON THE PRIMARY CLINICAL RECORDS. [email or web address] [facility]. provides no warranty or guarantee of the accuracy or completeness of information in this document.
--- NOTE | 2025-02-05 07:13 | PC.NURSE ---
pt brought in to ER accompanied by EMS from [place] for becoming combative throughout the night. Was cussing and throwing his shoes at people. was recently d/c'd from [facility] who is now refusing to take him back. Pt received Ketamine en route and is now calm and sedated
--- NOTE | 2025-02-05 07:19 | ECG_ITS ---
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 Measurements Intervals [place] Rate: 85 P: 71 TX: 184 QRS: 63 QRSD: 88 T: 76 QT: 402 QTc: 444 Interpretive Statements 1100 Sinus rhythm 9110 normal ECG Compared to ECG 12/27/2024 15:14:27 No significant changes Electronically Signed On 02-05-2025 8:59:27 EDT by BENSON BARRERA M.D.
[2025-02-05 07:36] LABS: Basophils Absolute Auto 0.1 10^3/uL (0.0-0.1); Basophils Percent Auto 1.1 % (0.2-2.0); Eosinophils Absolute Auto 0.2 10^3/uL (0.0-0.7); Eosinophils Percent Auto 2.9 % (0.9-7.0); Hematocrit 27.8 % (42.0-54.0); Hemoglobin 8.8 g/dL (14.0-18.0); Immature Granulocytes Abs Auto 0.04 10^3/uL (0.00-0.03); Immature Granulocytes Pct Auto 0.5 % (0.0-0.5); Lymphocytes Absolute Auto 2.1 10^3/uL (1.2-3.8); Lymphocytes Percent Auto 26.6 % (20.5-60.0); Mean Corpuscular HGB Conc 31.7 g/dL (29.9-35.2); Mean Corpuscular Hemoglobin 27.6 pg (25.9-34.0); Mean Corpuscular Volume 87.1 fL (80.0-94.0); Mean Platelet Volume 10.9 fL (9.5-13.5); Monocytes Absolute Auto 0.6 10^3/uL (0.3-0.8); Neutrophils Absolute Auto 4.8 10^3/uL (1.4-6.5); Neutrophils Percent Auto 60.9 % (43.0-75.0); Platelet Count 441 10^3/uL (150-450); Red Blood Count 3.19 10^6/uL (4.70-6.10); Red Cell Distribution Width 16.8 % (11.0-15.0)
[2025-02-05 08:01] LABS: Alanine Aminotransferase 12 U/L (16-63); Albumin Globulin Ratio 0.5; Albumin Level 2.5 g/dL (3.4-5.0); Alkaline Phosphatase 74 U/L (46-116); Anion Gap 18.5; Aspartate Amino Transferase 18 U/L (15-37); BUN Creatinine Ratio 6.9; Bilirubin Direct 0.1 mg/dL (0.0-0.2); Bilirubin Total 0.2 mg/dL (0.2-1.0); Calcium 8.5 mg/dL (8.5-10.1); Carbon Dioxide 22.4 mmol/L (21.0-32.0); Chloride 105 mmol/L (98-107); Estimated GFR (African America 25 (>=60 mL/min/1.73m^2); Estimated GFR (Non-African Ame 21 (>=60 mL/min/1.73m^2); Ethanol <3 mg/dL; Globulin 4.9 g/dL; Glucose 134 mg/dL (74-106); Potassium 3.9 mmol/L (3.5-5.1); Sodium 142 mmol/L (136-145); Total Protein 7.4 g/dL (6.4-8.2)
[2025-02-05 08:02] LABS: Magnesium 2.3 mg/dL (1.8-2.4); Troponin I High Sensitivity 9.7 pg/mL (4.0-76.1)
[2025-02-05 08:23] LABS: Bilirubin Urine NEGATIVE (NEGATIVE); Blood Urine NEGATIVE (NEGATIVE); Clarity Urine CLEAR (CLEAR); Color Urine YELLOW (YELLOW); Glucose Urine UA NEGATIVE (NEGATIVE); Ketones Urine NEGATIVE (NEGATIVE); Leukocyte Esterase Urine NEGATIVE (NEGATIVE); Nitrite Urine NEGATIVE (NEGATIVE); Protein Urine 100 mg/dL (NEG/TRACE); Urobilinogen Urine 0.2 EU/dL (0.2-1.0)
[2025-02-05 08:25] LABS: Urine Microscopic Indicated YES
[2025-02-05 08:29] LABS: RBC Urine 0-2 #/HPF (0-2); WBC Urine 0-2 #/HPF (NONE SEEN)
[2025-02-05 08:30] LABS: Bacteria Urine TRACE #/HPF (NONE SEEN); Cast Seen? SEEN #/LPF (NONE SEEN); Crystals Seen? None Seen #/HPF (None Seen); Hyaline Casts Urine RARE; Mucus Urine TRACE (NONE SEEN); Squamous Epithelial Cell Urine RARE #/LPF (NONE/RARE); Urine Culture Indicated NO
[2025-02-05 08:34] LABS: Amphetamine Screen Urine NEGATIVE (NEGATIVE); Barbiturates Screen Urine NEGATIVE (NEGATIVE); Benzodiazepines Screen Urine NEGATIVE (NEGATIVE); Buprenorphine Screen Urine NEGATIVE (NEGATIVE); Cannabinoid Screen Urine NEGATIVE (NEGATIVE); Cocaine Screen Urine NEGATIVE (NEGATIVE); Methadone Screen Urine NEGATIVE (NEGATIVE); Methamphetamines Screen Urine NEGATIVE (NEGATIVE); Opiate Screen Urine NEGATIVE (NEGATIVE); Oxycodone Screen Urine NEGATIVE (NEGATIVE); Phencyclidine Screen Urine NEGATIVE (NEGATIVE); Tricyclic Antidepressant Urine NEGATIVE (NEGATIVE)
[2025-02-05 08:46] LABS: ABG PCO2 41.3 mmHg (35.0-45.0); Allen Test POSITIVE (POSITIVE); Base Excess ABG -0.8 mmol/L (-2.0-2.0); HCO3 ABG 24.3 mmol/L (22.0-26.0); Liters per Minute 6; O2 Mode SIMPLE MASK; Oxygen Saturation ABG >100.0 %; Puncture Site RR; pH ABG 7.379 (7.350-7.450)
--- NOTE | 2025-02-05 09:42 | PC.NURSE ---
Pt resting in bed comfortably awake. This RN just spoke with Danna with [facility] and discussed pt's situation. Per her, there is no documentation on [facility] end where he was evaluated on when he was in ER. Danna will call back when she's able for assessment of pt.
[2025-02-05] MEDS: AMLODIPINE BESYLATE 5 MG TABLET 10 MG PO (10:10)
[2025-02-05] MEDS: CLONIDINE HCL 0.1 MG TABLET PO (10:11)
[2025-02-05] MEDS: ONDANSETRON PF 4 MG/2 ML VIAL IV (11:31)
--- NOTE | 2025-02-05 11:34 | PC.NURSE ---
1100- pt son and DIL at bedside at this time -- updated on plan of care. pt just finished eating breakfast and then vomited on himself. this RN and another assisted pt with cleaning him up and changing his linen. Dr Pelayo put in zofran IV. pt remains calm and cooperative
--- NOTE | 2025-02-05 12:03 | PC.NURSE ---
1105- Leg bag also emptied at this time.l approx 100ml of urine disposed. clear, yellow.
[2025-02-05 14:29] LABS: Internal Control Within Normal Limits; SARS-CoV-2 Ag NEGATIVE (NEGATIVE)
--- NOTE | 2025-02-05 17:10 | PC.NURSE ---
1700 - woke pt up and gave a snack/drink -- does not want much. still awaiting acceptance from [facility].
--- NOTE | 2025-02-05 18:28 | PC.NURSE ---
1814 - updated pt's son, Michael, on pt's transfer of care to [facility] and will be picked up around 2199. Pt continues to sleep peacefully. Easily arousable with verbal stimuli. This RN is trying to get pt to wake up so he can sleep tonight -- but pt states I just want to sleep .
[2025-02-05] MEDS: LORAZEPAM 2 MG/ML VIAL 1 MG IM (21:48)
[2025-02-05] MEDS: HALOPERIDOL LACTATE 5 MG/ML VIAL IM (21:52)
== END 2025-02-05 21:50 ==
PROVIDERS: Emergency Medicine; Emergency Provider Emergency Medicine; PCP Internal Medicine
DX: R41.82 Altered mental status, unspecified (principal); R45.1 Restlessness and agitation; Z79.899 Other long term (current) drug therapy
CPT/HCPCS: 36415; 36600; 70450; 71045; 80053; 80307; 80320; 81001; 82248; 82805; 83735; 84484; 85025; 87811; 93005; 96372; 96374; 99285; J1630; J2060; J2405

== ENCOUNTER 2025-03-09 12:28 | Observation (INO) | payer MEDICARE, OTHER, SELFPAY ==
[2025-03-09 12:29] VITALS: BMI 3515.3
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
[2025-03-09 12:44] VITALS: BP 124/73; PULSE 86; TEMP 37; O2SAT 96
[2025-03-09 12:53] LABS: Basophils Percent Auto 0.3 % (0.2-2.0); Eosinophils Absolute Auto 0.7 10^3/uL (0.0-0.7); Eosinophils Percent Auto 4.3 % (0.9-7.0); Hematocrit 26.3 % (42.0-54.0); Hemoglobin 8.3 g/dL (14.0-18.0); Immature Granulocytes Abs Auto 0.17 10^3/uL (0.00-0.03); Immature Granulocytes Pct Auto 1.1 % (0.0-0.5); Lymphocytes Absolute Auto 3.1 10^3/uL (1.2-3.8); Lymphocytes Percent Auto 20.2 % (20.5-60.0); Mean Corpuscular HGB Conc 31.6 g/dL (29.9-35.2); Mean Corpuscular Hemoglobin 26.9 pg (25.9-34.0); Mean Corpuscular Volume 85.1 fL (80.0-94.0); Mean Platelet Volume 10.8 fL (9.5-13.5); Monocytes Percent Auto 6.7 % (1.7-12.0); Neutrophils Absolute Auto 10.5 10^3/uL (1.4-6.5); Neutrophils Percent Auto 67.4 % (43.0-75.0); Platelet Count 397 10^3/uL (150-450); Red Blood Count 3.09 10^6/uL (4.70-6.10); Red Cell Distribution Width 17.8 % (11.0-15.0); White Blood Count 15.5 10^3/uL (4.0-11.0)
[2025-03-09 13:11] LABS: Anion Gap 7.4; Calcium 8.5 mg/dL (8.5-10.1); Carbon Dioxide 27.6 mmol/L (21.0-32.0); Chloride 106 mmol/L (98-107); Estimated GFR (African America 28 (>=60 mL/min/1.73m^2); Estimated GFR (Non-African Ame 23 (>=60 mL/min/1.73m^2); Ethanol <3 mg/dL; Glucose 90 mg/dL (74-106); Salicylate <2.8 mg/dL (<=19.9); Sodium 137 mmol/L (136-145)
[2025-03-09 13:13] LABS: Acetaminophen <2.0 ug/mL (10.0-30.0)
[2025-03-09 14:02] LABS: Bilirubin Urine NEGATIVE (NEGATIVE); Blood Urine LARGE (NEGATIVE); Clarity Urine CLEAR (CLEAR); Color Urine LT. YELLOW (YELLOW); Glucose Urine UA NEGATIVE (NEGATIVE); Ketones Urine NEGATIVE (NEGATIVE); Leukocyte Esterase Urine SMALL (NEGATIVE); Nitrite Urine NEGATIVE (NEGATIVE); Protein Urine 100 mg/dL (NEG/TRACE); Specific Gravity Urine 1.015 (1.005-1.025); Urobilinogen Urine 0.2 EU/dL (0.2-1.0)
[2025-03-09 14:10] LABS: Bacteria Urine TRACE #/HPF (NONE SEEN); Cast Seen? NONE SEEN #/LPF (NONE SEEN); Crystals Seen? None Seen #/HPF (None Seen); Mucus Urine NONE SEEN (NONE SEEN); RBC Urine 20-50 #/HPF (0-2); Squamous Epithelial Cell Urine RARE #/LPF (NONE/RARE); Urine Culture Indicated YES-FRMC
[2025-03-09 14:19] LABS: Amphetamine Screen Urine NEGATIVE (NEGATIVE); Barbiturates Screen Urine NEGATIVE (NEGATIVE); Benzodiazepines Screen Urine NEGATIVE (NEGATIVE); Buprenorphine Screen Urine NEGATIVE (NEGATIVE); Cannabinoid Screen Urine NEGATIVE (NEGATIVE); Cocaine Screen Urine NEGATIVE (NEGATIVE); Methadone Screen Urine NEGATIVE (NEGATIVE); Methamphetamines Screen Urine NEGATIVE (NEGATIVE); Opiate Screen Urine NEGATIVE (NEGATIVE); Oxycodone Screen Urine NEGATIVE (NEGATIVE); Phencyclidine Screen Urine NEGATIVE (NEGATIVE); Tricyclic Antidepressant Urine POSITIVE (NEGATIVE)
[2025-03-09] MEDS: CEFTRIAXONE 1,000 MG in 0.9 % SODIUM CHLORIDE 50 ML 100 MG IV (15:28)
[2025-03-09 16:08] VITALS: BP 127/74; PULSE 75; O2SAT 95
[2025-03-09 17:23] VITALS: BP 132/79; PULSE 78; TEMP 36.7; O2SAT 94; BMI 18.8
[2025-03-09 19:55] VITALS: BP 119/71; PULSE 76; TEMP 37.1; O2SAT 93
[2025-03-09 20:04] VITALS: O2SAT 96
[2025-03-09] MEDS: HEPARIN SODIUM (PORCINE) 5,000 UNIT/ML VIAL 5000 UNIT SUBQ (20:51)
[2025-03-10 05:34] VITALS: BP 130/84; PULSE 78; TEMP 36.7; O2SAT 94
[2025-03-10 05:42] LABS: Basophils Percent Auto 0.4 % (0.2-2.0); Eosinophils Absolute Auto 0.6 10^3/uL (0.0-0.7); Eosinophils Percent Auto 5.1 % (0.9-7.0); Hematocrit 24.4 % (42.0-54.0); Hemoglobin 7.6 g/dL (14.0-18.0); Immature Granulocytes Abs Auto 0.12 10^3/uL (0.00-0.03); Immature Granulocytes Pct Auto 1.1 % (0.0-0.5); Lymphocytes Absolute Auto 2.5 10^3/uL (1.2-3.8); Lymphocytes Percent Auto 21.8 % (20.5-60.0); Mean Corpuscular HGB Conc 31.1 g/dL (29.9-35.2); Mean Corpuscular Hemoglobin 26.6 pg (25.9-34.0); Mean Corpuscular Volume 85.3 fL (80.0-94.0); Mean Platelet Volume 11.2 fL (9.5-13.5); Monocytes Absolute Auto 0.8 10^3/uL (0.3-0.8); Monocytes Percent Auto 7.5 % (1.7-12.0); Neutrophils Absolute Auto 7.2 10^3/uL (1.4-6.5); Neutrophils Percent Auto 64.1 % (43.0-75.0); Platelet Count 368 10^3/uL (150-450); Red Blood Count 2.86 10^6/uL (4.70-6.10); Red Cell Distribution Width 17.8 % (11.0-15.0); White Blood Count 11.2 10^3/uL (4.0-11.0)
[2025-03-10 06:04] LABS: Alanine Aminotransferase 14 U/L (16-63); Albumin Globulin Ratio 0.4; Albumin Level 1.9 g/dL (3.4-5.0); Alkaline Phosphatase 56 U/L (46-116); Anion Gap 10.9; Aspartate Amino Transferase 15 U/L (15-37); BUN Creatinine Ratio 10.8; Bilirubin Total 0.2 mg/dL (0.2-1.0); Calcium 8.2 mg/dL (8.5-10.1); Carbon Dioxide 26.9 mmol/L (21.0-32.0); Chloride 104 mmol/L (98-107); Estimated GFR (African America 30 (>=60 mL/min/1.73m^2); Estimated GFR (Non-African Ame 25 (>=60 mL/min/1.73m^2); Globulin 4.3 g/dL; Glucose 86 mg/dL (74-106); Potassium 3.8 mmol/L (3.5-5.1); Sodium 138 mmol/L (136-145); Total Protein 6.2 g/dL (6.4-8.2)
[2025-03-10 09:02] VITALS: BP 108/72; PULSE 80; TEMP 36.7; O2SAT 92
[2025-03-10] MEDS: TAMSULOSIN HCL 0.4 MG CAPSULE PO ×2 (09:23→21:50)
[2025-03-10] MEDS: QUETIAPINE FUMARATE 25 MG TABLET 50 MG PO ×3 (09:23→21:50)
[2025-03-10] MEDS: LEVETIRACETAM 500 MG TABLET PO ×2 (09:23→21:51)
[2025-03-10] MEDS: CEFTRIAXONE 1,000 MG in 0.9 % SODIUM CHLORIDE 50 ML 100 MG IV (09:23)
[2025-03-10] MEDS: DIVALPROEX SODIUM 125 MG CAP.DR.SPR 250 MG PO ×2 (09:23→21:50)
[2025-03-10] MEDS: CARVEDILOL 12.5 MG TABLET PO ×2 (09:23→21:50)
[2025-03-10] MEDS: AMLODIPINE BESYLATE 5 MG TABLET PO (09:24)
--- NOTE | 2025-03-10 09:58 | CM.NOTE ---
Rounds made with Dr. Malik, pt will discharge today. Possibly to [facility] or back to [facility]. SW will speak with [facility] for plan of care. Pt continues with confusion this am to name and place, pt was able to verbalizes .
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
[2025-03-10 11:04] VITALS: O2SAT 93
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
--- NOTE | 2025-03-10 11:19 | SWNOTE1 ---
RENATO spoke to Tess from [facility]. She voiced they are able to take him back. She stated they do not have a bed today, but will tomorrow. SW to speak with doctor. Tess did request SW fax over referral that way they have his updates. RENATO spoke to doctor and ok for pt to stay until tomorrow when bed is open. RENATO faxed referral to Tess at [facility]. Referral included face sheet, ED note, labs, vitals, nursing rounding notes, med list, case management report, and med list.
--- NOTE | 2025-03-10 11:36 | SWNOTE1 ---
RENATO called and spoke to pt's son, Michael, who is HCPOA. RENATO explained that [facility] is not able to accept him back due to safety reasons (he was aware of this). RENATO explained [facility] is able to take pt back, but no bed until tomorrow. Plan is for him to go there tomorrow. Pt's son in agreement. Pt's son did ask what facilities would be able to accommodate, [facility] does have a locked unit, but was not able to handle pt. RENATO did explain that many of the facilities with locked units should be able to accommodate various behaviors, up until a certain point. Such as violence or safety concerns. RENATO did let him know that [facility] was here the other day and spoke about their locked unit. He stated [facility] and [facility] were not able to accept him. RENATO was honest with pt's son and let him know that it may be a vicious cycle of pt going to locked unit and then having to be sent to hospital or behavioral health facility due to his behaviors. RENATO did suggest possibly a bigger [facility] may have somewhere with more capabilities. He voiced he was going to have [facility] look in to the [place] area. He stated he worked in the [place] area and truly does not want his father in [facility]. Unfortunately at this time, RENATO does not have any other facilities to recommend in this area. Pt's son voiced appreciation.
--- NOTE | 2025-03-10 11:42 | SWNOTE1 ---
Medicare Outpatient Observation Notice reviewed and discussed with patient's son, Michael. Pt's son Michael verbalized understanding and SW signed the form that it was reviewed. Original placed in pt's room and copy placed in patient?s chart.
--- NOTE | 2025-03-10 15:48 | SWNOTE1 ---
RENATO received an email from Tess at [facility]. Her discharge from tomorrow may be delayed until Friday. She is unsure if she will have a bed for pt tomorrow and she will know more tomorrow morning. RENATO updated doctor. RENATO called and left message for pt's son. RENATO did send a referral to [facility] in [place] and [facility] in [place], both geriatric behavioral health facilities.
--- NOTE | 2025-03-10 16:07 | SWNOTE1 ---
SW did speak with pt's son, Michael and updated him. He is alright with SW sending referrals to other geriatric [facility] health facilties. He does prefer the one in [place] over [place] as he is closer to that one. SW to send both referrals. SW did advise that he has not had any behaviors while he has been here, so unsure what the facilties will say. SW also stated that we may have to re check with [facility] or another long term. Pt's son voiced understanding. Referral sent to [facility] and [facility]. Referral included face sheet, ED note, H&P, provider notes, case management report,, nursing notes, diagnostic imaging, med list, PT note, HCPOA paperwork, and DNR order.
--- NOTE | 2025-03-10 16:09 | SWNOTE1 ---
SW received a call from [facility] and they had several questions for SW. SW answered to best of ability. [facility] stated they will call back after it is reviewed and make a determination.
[2025-03-10 16:40] VITALS: BP 108/62; PULSE 69; TEMP 36.6; O2SAT 93
[2025-03-10 19:16] VITALS: BP 138/86; PULSE 71; TEMP 36.5; O2SAT 93
[2025-03-10 19:50] VITALS: O2SAT 94
[2025-03-10] MEDS: MIRTAZAPINE 15 MG TABLET 30 MG PO (21:51)
[2025-03-11 00:52] VITALS: BP 129/79; PULSE 67; TEMP 36.8; O2SAT 97
[2025-03-11 04:00] VITALS: BP 139/96; PULSE 75; TEMP 36.8
[2025-03-11] MEDS: QUETIAPINE FUMARATE 25 MG TABLET 50 MG PO ×3 (06:10→21:42)
[2025-03-11 06:19] LABS: Basophils Absolute Auto 0.1 10^3/uL (0.0-0.1); Basophils Percent Auto 0.6 % (0.2-2.0); Eosinophils Absolute Auto 0.7 10^3/uL (0.0-0.7); Eosinophils Percent Auto 7.3 % (0.9-7.0); Hematocrit 28.2 % (42.0-54.0); Hemoglobin 8.8 g/dL (14.0-18.0); Immature Granulocytes Abs Auto 0.12 10^3/uL (0.00-0.03); Immature Granulocytes Pct Auto 1.2 % (0.0-0.5); Lymphocytes Absolute Auto 2.8 10^3/uL (1.2-3.8); Lymphocytes Percent Auto 28.4 % (20.5-60.0); Mean Corpuscular HGB Conc 31.2 g/dL (29.9-35.2); Mean Corpuscular Volume 86.5 fL (80.0-94.0); Mean Platelet Volume 11.1 fL (9.5-13.5); Monocytes Absolute Auto 0.7 10^3/uL (0.3-0.8); Monocytes Percent Auto 7.5 % (1.7-12.0); Neutrophils Absolute Auto 5.4 10^3/uL (1.4-6.5); Platelet Count 366 10^3/uL (150-450); Red Blood Count 3.26 10^6/uL (4.70-6.10); White Blood Count 9.8 10^3/uL (4.0-11.0)
[2025-03-11 06:33] LABS: Alanine Aminotransferase 15 U/L (16-63); Albumin Globulin Ratio 0.4; Albumin Level 2.1 g/dL (3.4-5.0); Alkaline Phosphatase 65 U/L (46-116); Anion Gap 9.5; Aspartate Amino Transferase 16 U/L (15-37); BUN Creatinine Ratio 9.2; Bilirubin Total 0.2 mg/dL (0.2-1.0); Calcium 8.7 mg/dL (8.5-10.1); Carbon Dioxide 28.3 mmol/L (21.0-32.0); Chloride 104 mmol/L (98-107); Estimated GFR (African America 32 (>=60 mL/min/1.73m^2); Estimated GFR (Non-African Ame 26 (>=60 mL/min/1.73m^2); Glucose 89 mg/dL (74-106); Potassium 3.8 mmol/L (3.5-5.1); Sodium 138 mmol/L (136-145); Total Protein 7.1 g/dL (6.4-8.2)
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
[2025-03-11 08:34] VITALS: BP 119/69; PULSE 72; TEMP 36.7; O2SAT 95
--- NOTE | 2025-03-11 09:17 | SWNOTE1 ---
SW received a call back from [facility] and they are still not able to accept due to pt's behaviors, seizure history, and other medical information. RENATO received a call back from [facility] and they are able to accept, they just need a pink slip completed and sent over. RENATO messaged case management and doctor will complete. RENATO faxed pink slip to [facility].
--- NOTE | 2025-03-11 09:32 | CM.NOTE ---
Rounds made with Dr. Malik. Continue with current treatment plan. Awaiting acceptance at alternate level of care.
--- NOTE | 2025-03-11 09:34 | SWNOTE1 ---
SW received a call from [facility] and they do need name of facility, name of patient, and date at top of pink slip. SW completed and faxed back over.
[2025-03-11] MEDS: CEFTRIAXONE 1,000 MG in 0.9 % SODIUM CHLORIDE 50 ML 100 MG IV (10:36)
[2025-03-11] MEDS: CARVEDILOL 12.5 MG TABLET PO ×2 (10:37→21:42)
[2025-03-11] MEDS: DIVALPROEX SODIUM 125 MG CAP.DR.SPR 250 MG PO ×2 (10:37→21:42)
[2025-03-11] MEDS: LEVETIRACETAM 500 MG TABLET PO ×2 (10:37→21:42)
[2025-03-11] MEDS: TAMSULOSIN HCL 0.4 MG CAPSULE PO ×2 (10:38→21:42)
[2025-03-11] MEDS: AMLODIPINE BESYLATE 5 MG TABLET PO (10:38)
[2025-03-11] MEDS: HEPARIN SODIUM (PORCINE) 5,000 UNIT/ML VIAL 5000 UNIT SUBQ ×2 (10:38→21:43)
[2025-03-11 10:56] VITALS: O2SAT 95
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
--- NOTE | 2025-03-11 11:30 | SWNOTE1 ---
RENATO faxed over dc med rec, HCPOA, H&P, dc summary, labs, vitals, and nursing notes from today. RENATO called and set up [facility] for 12:25pm. RENATO called Artie Morris with time, pt's son, and let nursing know as well. Pt is pink slipped to go to [facility].
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
[2025-03-11 16:34] VITALS: BP 134/86; PULSE 79; TEMP 36.6; O2SAT 94
[2025-03-11 20:06] VITALS: O2SAT 94
[2025-03-11] MEDS: MIRTAZAPINE 15 MG TABLET 30 MG PO (21:42)
[2025-03-12] VITALS: BP 164/102; PULSE 79; TEMP 36.7; O2SAT 94
[2025-03-12 05:51] VITALS: BP 137/92; PULSE 76; TEMP 36.5; O2SAT 94
[2025-03-12] MEDS: QUETIAPINE FUMARATE 25 MG TABLET 50 MG PO ×2 (06:26→14:56)
--- NOTE | 2025-03-12 08:09 | P.PN_ITS ---
Progress Note: Subjective Subjective Interval history: Patient with severe dementia, appears comfortable and resting. No reported events overnight. Awaiting bed at Nursing facility, tentatively Friday. Exam Narrative Exam Narrative: General: Patient is asleep and appears in no acute distress, opens eyes to name Skin: no visible rashes, or ulcers Head: atraumatic, acephalic Neck: no masses palpated Heart: Normal rate and rhythm, no murmurs/rubs/gallops Lungs: no audible wheezes, crackles and normal breath sounds all lung enriquez Abdomen: Normal audible bowel sounds, no distension, No palpable masses, no o rganomegaly, no rebound/guarding/ or rigidity Musculoskeletal: muscle atrophy noted, ROM is limited due to being in hospital bed, no swelling bilateral lower extremities Constitutional Vital Signs, click to edit/add: Last Vital Signs Temp 97.7 F 03/12/25 05:51 Pulse 76 03/12/25 05:51 Resp 18 03/12/25 05:51 BP 137/92 H 03/12/25 05:51 Pulse Ox 94 L 03/12/25 05:51 O2 Del Method Room Air 03/12/25 05:51 Progress Note: A&P Assessment and Plan (1) Metabolic encephalopathy: Assessment and Plan: Likely secondary to urinary tract infection. Continue with IV antibiotics. Follow-up urine culture pending (2) Catheter-associated urinary tract infection: Assessment and Plan: continue IV Rocephin Qualifiers: Encounter type: subsequent encounter Indwelling urinary catheter type: indwelling urethral catheter Qualified Code(s): T83.511D - Infection and inflammatory reaction due to indwelling urethral catheter, subsequent encounter; N39.0 - Urinary tract infection, site not specified (3) Dementia: Assessment and Plan: Severe dementia with intermittent agitation/behavioral disturbances. Continue with Seroquel along with mirtazapine. Qualifiers: Alzheimer's disease onset: unspecified onset Dementia behavioral or psychological symptom: with agitation Dementia severity: severe Dementia type: Alzheimer's Qualified Code(s): G30.9 - Alzheimer's disease, unspecified; F02.C11 - Dementia in other diseases classified elsewhere, severe, with agitation (4) Hypertension: Assessment and Plan: Blood pressure stable. Continue amlodipine and carvedilol Qualifiers: Hypertension type: primary hypertension Qualified Code(s): I10 - Essential (primary) hypertension (5) Seizure: Assessment and Plan: Seizures well-controlled. Continue with home medications. (6) Chronic kidney disease, stage 4 (severe): Assessment and Plan: Creatinine at baseline Plan Patient is a DNRCCA awaiting placement to nursing facility most likely 1-2 more days until bed available Urinary Catheter Management Urinary Catheter Management Urethral: Cath placed during this visit: no
[2025-03-12] MEDS: HEPARIN SODIUM (PORCINE) 5,000 UNIT/ML VIAL 5000 UNIT SUBQ (08:44)
[2025-03-12] MEDS: LEVETIRACETAM 500 MG TABLET PO (08:45)
[2025-03-12] MEDS: CARVEDILOL 12.5 MG TABLET PO (08:45)
[2025-03-12] MEDS: TAMSULOSIN HCL 0.4 MG CAPSULE PO (08:45)
[2025-03-12] MEDS: AMLODIPINE BESYLATE 5 MG TABLET PO (08:45)
[2025-03-12] MEDS: DIVALPROEX SODIUM 125 MG CAP.DR.SPR 250 MG PO (08:45)
[2025-03-12] MEDS: CEFUROXIME AXETIL 250 MG TABLET PO (08:45)
[2025-03-12 11:00] VITALS: O2SAT 96
[2025-03-12 13:47] VITALS: BP 127/66; PULSE 78; TEMP 36.6; O2SAT 94
[2025-03-12 20:01] VITALS: O2SAT 95
--- NOTE | 2025-03-12 21:49 | PC.NURSE ---
Nurse into room. Nurse gently woke patient up and explained who she was. Nurse asked patiennt if she could check his blood pressure and temperature. Patient asked why? Nurse explained Dr. millan wants us to check it once a shift to make sure everythinng's ok. Patient waves hand at nurse and says move on . Nurse asked one more time and patient again refused vital signs. Nurse also told patient she had his meds. Patient states just leave me alone to . Nurse asked patient if he was refusing meds, patient states that's what I said.
[2025-03-13] MEDS: QUETIAPINE FUMARATE 25 MG TABLET 50 MG PO ×3 (05:19→21:53)
[2025-03-13 05:43] VITALS: BP 112/70; PULSE 96; TEMP 36.4; O2SAT 94
[2025-03-13 06:14] LABS: Basophils Percent Auto 0.4 % (0.2-2.0); Eosinophils Absolute Auto 0.5 10^3/uL (0.0-0.7); Eosinophils Percent Auto 5.1 % (0.9-7.0); Hematocrit 26.9 % (42.0-54.0); Hemoglobin 8.6 g/dL (14.0-18.0); Immature Granulocytes Abs Auto 0.08 10^3/uL (0.00-0.03); Immature Granulocytes Pct Auto 0.8 % (0.0-0.5); Lymphocytes Absolute Auto 1.9 10^3/uL (1.2-3.8); Lymphocytes Percent Auto 20.2 % (20.5-60.0); Mean Corpuscular Hemoglobin 27.7 pg (25.9-34.0); Mean Corpuscular Volume 86.8 fL (80.0-94.0); Mean Platelet Volume 11.1 fL (9.5-13.5); Monocytes Absolute Auto 0.6 10^3/uL (0.3-0.8); Monocytes Percent Auto 6.7 % (1.7-12.0); Neutrophils Absolute Auto 6.4 10^3/uL (1.4-6.5); Neutrophils Percent Auto 66.8 % (43.0-75.0); Platelet Count 314 10^3/uL (150-450); Red Cell Distribution Width 17.8 % (11.0-15.0); White Blood Count 9.6 10^3/uL (4.0-11.0)
[2025-03-13 06:28] LABS: Anion Gap 9.8; BUN Creatinine Ratio 9.6; Calcium 8.7 mg/dL (8.5-10.1); Carbon Dioxide 27.5 mmol/L (21.0-32.0); Chloride 104 mmol/L (98-107); Estimated GFR (African America 33 (>=60 mL/min/1.73m^2); Estimated GFR (Non-African Ame 27 (>=60 mL/min/1.73m^2); Glucose 116 mg/dL (74-106); Potassium 4.3 mmol/L (3.5-5.1); Sodium 137 mmol/L (136-145)
--- NOTE | 2025-03-13 07:37 | PM.PN ---
Progress Note: Subjective Subjective Interval history: Patient with history of severe dementia, appears comfortable and resting. No reported events overnight. Awaiting bed at Nursing facility, tentatively tomorrow. Labs and vitals stable. Blood and urine cultures are negative. Patient currently on Oral Cefuroxime. He answers questions appropriately this morning, states he ate all his breakfast and nothing is bothering him. Exam Narrative Exam Narrative: General: Patient alert but not oriented to place or time Skin: no visible rashes, or ulcers Head: atraumatic, acephalic Neck: no masses palpated Heart: Normal rate and rhythm, no murmurs/rubs/gallops Lungs: no audible wheezes, crackles and normal breath sounds all lung enriquez Abdomen: Normal audible bowel sounds, no distension, No palpable masses, no organomegaly, no rebound/guarding/ or rigidity Musculoskeletal: muscle atrophy noted, ROM is limited due to being in hospital bed, no swelling bilateral lower extremities Constitutional Vital Signs, click to edit/add: Last Vital Signs Temp 97.5 F L 03/13/25 05:43 Pulse 96 H 03/13/25 05:43 Resp 20 03/13/25 05:43 BP 112/70 03/13/25 05:43 Pulse Ox 94 L 03/13/25 05:43 O2 Del Method Room Air 03/13/25 05:43 Progress Note: Objective Labs Labs: Short CBC 03/13/25 Range/Units 05:38 WBC 9.6 (4.0-11.0) 10^3/uL Hgb 8.6 L (14.0-18.0) g/dL Hct 26.9 L (42.0-54.0) % Plt Count 314 (150-450) 10^3/uL BMP 03/13/25 05:38 Sodium 137 Potassium 4.3 Chloride 104 Carbon Dioxide 27.5 BUN 22.0 H Creatinine 2.30 H Glucose 116 H Calcium 8.7 Progress Note: A&P Assessment and Plan (1) Metabolic encephalopathy: Assessment and Plan: Likely secondary to urinary tract infection, urine culture and blood cultures negative, was on IV Rocephin and switched to oral Cefuroxime which patient is tolerating well. Will complete 4 more days of this. (2) Catheter-associated urinary tract infection: Assessment and Plan: chronic indwelling lepe, continue antibiotics Qualifiers: Encounter type: subsequent encounter Indwelling urinary catheter type: indwelling urethral catheter Qualified Code(s): T83.511D - Infection and inflammatory reaction due to indwelling urethral catheter, subsequent encounter; N39.0 - Urinary tract infection, site not specified (3) Dementia: Assessment and Plan: Severe dementia with intermittent agitation/behavioral disturbances. Continue with Seroquel along with mirtazapine. Qualifiers: Alzheimer's disease onset: unspecified onset Dementia behavioral or psychological symptom: with agitation Dementia severity: severe Dementia type: Alzheimer's Qualified Code(s): G30.9 - Alzheimer's disease, unspecified; F02.C11 - Dementia in other diseases classified elsewhere, severe, with agitation (4) Hypertension: Assessment and Plan: Blood pressure stable. Continue amlodipine and carvedilol Qualifiers: Hypertension type: primary hypertension Qualified Code(s): I10 - Essential (primary) hypertension (5) Seizure: Assessment and Plan: Seizures well-controlled. Continue with home medications. (6) Chronic kidney disease, stage 4 (severe): Assessment and Plan: Creatinine at baseline Plan Patient is a DNRCCA awaiting placement to nursing facility most likely 1 more days until bed available Urinary Catheter Management Urinary Catheter Management Urethral: Cath placed during this visit: no
[2025-03-13] MEDS: HEPARIN SODIUM (PORCINE) 5,000 UNIT/ML VIAL 5000 UNIT SUBQ ×2 (08:27→21:53)
[2025-03-13] MEDS: CARVEDILOL 12.5 MG TABLET PO ×2 (08:27→21:52)
[2025-03-13] MEDS: DIVALPROEX SODIUM 125 MG CAP.DR.SPR 250 MG PO ×2 (08:28→21:52)
[2025-03-13] MEDS: CEFUROXIME AXETIL 250 MG TABLET PO ×2 (08:28→21:53)
[2025-03-13] MEDS: AMLODIPINE BESYLATE 5 MG TABLET PO (08:28)
[2025-03-13] MEDS: LEVETIRACETAM 500 MG TABLET PO ×2 (08:28→21:53)
[2025-03-13] MEDS: TAMSULOSIN HCL 0.4 MG CAPSULE PO ×2 (08:28→21:52)
[2025-03-13 13:57] VITALS: BP 134/88; PULSE 78; TEMP 37.1; O2SAT 94
[2025-03-13] MEDS: MIRTAZAPINE 15 MG TABLET 30 MG PO (21:52)
[2025-03-13 22:00] VITALS: BP 137/86; PULSE 82; TEMP 36.5; O2SAT 96
[2025-03-14 04:11] VITALS: BP 138/86; PULSE 77; TEMP 36.9; O2SAT 95
[2025-03-14] MEDS: QUETIAPINE FUMARATE 25 MG TABLET 50 MG PO (05:28)
[2025-03-14 06:32] LABS: Basophils Percent Auto 0.4 % (0.2-2.0); Eosinophils Absolute Auto 0.5 10^3/uL (0.0-0.7); Eosinophils Percent Auto 4.7 % (0.9-7.0); Hematocrit 25.5 % (42.0-54.0); Hemoglobin 7.9 g/dL (14.0-18.0); Immature Granulocytes Abs Auto 0.06 10^3/uL (0.00-0.03); Immature Granulocytes Pct Auto 0.6 % (0.0-0.5); Lymphocytes Absolute Auto 2.3 10^3/uL (1.2-3.8); Lymphocytes Percent Auto 24.2 % (20.5-60.0); Mean Corpuscular Hemoglobin 26.5 pg (25.9-34.0); Mean Corpuscular Volume 85.6 fL (80.0-94.0); Mean Platelet Volume 10.7 fL (9.5-13.5); Monocytes Absolute Auto 0.7 10^3/uL (0.3-0.8); Monocytes Percent Auto 7.5 % (1.7-12.0); Neutrophils Percent Auto 62.6 % (43.0-75.0); Platelet Count 283 10^3/uL (150-450); Red Blood Count 2.98 10^6/uL (4.70-6.10); Red Cell Distribution Width 17.8 % (11.0-15.0); White Blood Count 9.6 10^3/uL (4.0-11.0)
[2025-03-14 06:46] LABS: Anion Gap 12.3; BUN Creatinine Ratio 7.8; Calcium 8.4 mg/dL (8.5-10.1); Chloride 105 mmol/L (98-107); Estimated GFR (African America 33 (>=60 mL/min/1.73m^2); Estimated GFR (Non-African Ame 27 (>=60 mL/min/1.73m^2); Glucose 90 mg/dL (74-106); Potassium 4.3 mmol/L (3.5-5.1); Sodium 141 mmol/L (136-145)
[2025-03-14 07:20] VITALS: BP 148/83; PULSE 69; TEMP 36.9; O2SAT 100
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
[2025-03-14] MEDS: LEVETIRACETAM 500 MG TABLET PO (09:28)
[2025-03-14] MEDS: CEFUROXIME AXETIL 250 MG TABLET PO (09:28)
[2025-03-14] MEDS: HEPARIN SODIUM (PORCINE) 5,000 UNIT/ML VIAL 5000 UNIT SUBQ (09:28)
[2025-03-14] MEDS: TAMSULOSIN HCL 0.4 MG CAPSULE PO (09:28)
[2025-03-14] MEDS: DIVALPROEX SODIUM 125 MG CAP.DR.SPR 250 MG PO (09:28)
[2025-03-14] MEDS: CARVEDILOL 12.5 MG TABLET PO (09:28)
[2025-03-14] MEDS: AMLODIPINE BESYLATE 5 MG TABLET PO (09:28)
--- NOTE | 2025-03-14 09:54 | CM.NOTE ---
Rounds made with Dr. Morris. Potential plan for discharge today if bed available at [facility].
[2025-03-14 10:30] LABS: Internal Control Within Normal Limits; SARS-CoV-2 Ag NEGATIVE (NEGATIVE)
--- NOTE | 2025-03-14 11:19 | SWNOTE1 ---
RENATO had email from [place] at [facility]. They are ready for pt, but still need covid test. RENATO sent case management message, she informed doctor. RENATO faxed covid test, dc med rec, and other updates to [place] at [facility]. RENATO called and set up [facility] for 12:30. RENATO let nursing, [facility], and pt's son know time of transport.
[2025-03-14 11:23] VITALS: O2SAT 99
[2025-03-14 11:26] VITALS: BMI 18.8
[2025-03-14 12:02] VITALS: BP 146/84; PULSE 74; TEMP 36.7; O2SAT 95
== END 2025-03-14 12:55 ==
LOC: ER 14:56 → MS 03-10 07:37
PROVIDERS: Admitting Provider Internal Medicine; Emergency Provider Emergency Medicine; PCP Internal Medicine; Visit Provider Family Medicine
DX: G93.41 Metabolic encephalopathy (principal); T83.511A Infection and inflammatory reaction due to indwelling urethral catheter, initial encounter; Y84.6 Urinary catheterization as the cause of abnormal reaction of the patient, or of later complication, without mention of misadventure at the time of the procedure; N39.0 Urinary tract infection, site not specified; G30.9 Alzheimer's disease, unspecified; Z66 Do not resuscitate; F02.C11 Dementia in other diseases classified elsewhere, severe, with agitation; G40.909 Epilepsy, unspecified, not intractable, without status epilepticus; I12.9 Hypertensive chronic kidney disease with stage 1 through stage 4 chronic kidney disease, or unspecified chronic kidney disease; N18.4 Chronic kidney disease, stage 4 (severe); Z79.899 Other long term (current) drug therapy
CPT/HCPCS: 36415; 80048; 80053; 80179; 80307; 80320; 80329; 81001; 85025; 87040; 87086; 87811; 94761; 96365; 96366; 96372; 97162; 97165; 99285; G0378; J0696; J1644